=== PATIENT | male | born 1955 | race Two or more races ===

== ENCOUNTER 2020-08-14 02:41 | Emergency (ER) | payer OTHER, SELFPAY ==
--- NOTE | 2020-08-14 02:45 | ECG_ITS ---
Test Reason : CHESTPAIN Blood Pressure : / mmHG Vent. Rate : 105 BPM Atrial Rate : 105 BPM P-R Int : 202 ms QRS Dur : 116 ms QT Int : 366 ms P-R-T Axes : 043 -22 119 degrees QTc Int : 483 ms Sinus tachycardia Possible Left atrial enlargement Incomplete left bundle branch block ST & T wave abnormality, consider lateral ischemia Abnormal ECG Compare to previous EKG 14-Jun-20 No significant changes seen Referred By: Indira Martínez Electronically Signed By:ROMIE WISE MD
[2020-08-14 02:52] VITALS: BP 135/98; PULSE 96; RESP 20; TEMP 36.5; O2SAT 99
--- NOTE | 2020-08-14 02:52 | ED_ITS ---
HPI - Chest Pain General Chief Complaint: Chest Pain Stated Complaint: Chest pain Time Seen by Provider: 08/14/20 02:51 Source: patient and r d manager Mode of arrival: ambulatory Limitations: no limitations History of Present Illness HPI narrative: this is a 65-year-old man who presents after waking up and complaining shortness of breath that he states has been progressively worsening over the past 3-4 days and denies associated lower extremity edema, cough, orthopnea, fevers, chills, nausea, vomiting. Patient has also had mild substernal chest pressure for 2 days that is nonradiating and constant. Patient states he has developed significantly worsening dyspnea on exertion and fatigue. He self endorses that he has run out of his water pill and has an appointment this morning with his primary care provider who has refilled his prescription, but he was unable to fill it yesterday. Otherwise, he denies any abdominal discomfort or diarrhea. Related Data Allergies Allergy/AdvReac Type Severity Reaction Status Date / Time No Known Allergies Allergy Unverified 07/10/20 15:13 regadenoson [Lexiscan] AdvReac Unknown dizziness Verified 03/25/20 00:00 Review of Systems Review of Systems: pertinent positives and negatives as stated in HPI and 10 point review of systems is otherwise negative. PMFSH Past Medical History Source: nursing notes reviewed Medical History Hypertension Pacemaker Social History Social History Smoking Status: Heavy tobacco smoker Use of substances other than those prescribed or required for medical reasons: No Advance Directives: No Advance Directives Information Provided: No Physical Exam Vital Signs: Vital Signs: Vital Signs Temp Pulse Resp BP Pulse Ox 08/14/20 06:00 78 16 141/90 H 97 08/14/20 04:00 88 18 134/81 97 08/14/20 03:05 97.8 F 94 20 144/100 H 96 08/14/20 02:52 97.7 F 96 20 135/98 H 99 Body Mass Index 27.9 VITAL SIGNS: Reviewed. GENERAL: Well developed, well nourished, in no acute distress. HEAD: Normocephalic/atraumatic, EYES: PERRLA, EOMI intact without pain, no nystagmus/pallor/icterus noted EARS: Ext canals without abnormality, TMs non-bulging and non-erythematous NOSE: Nares patent bilateral OROPHARYNX: no oral lesions noted, posterior pharynx clear and non-erythematous without noted tonsillar enlargement/erythema/exudates NECK: Supple, no adenopathy LUNGS: Normal breath sounds. No adventitious sounds or accessory muscle use. SpO2<99> CARDIOVASCULAR: Regular rate and rhythm without noted murmurs, no JVD But trace bilateral lower extremity edema ABDOMEN: Soft, non-tender, non-distended with bowel sounds. No rigidity. No guarding. No palpable masses or hernias noted MUSCULOSKELETAL: No tenderness, deformities, or effusions noted on gross inspection. EXTREMITIES: No cyanosis, clubbing or edema. SKIN: Inspection of the skin reveals no rashes, ulcerations, jaundice, pallor, or petechiae. NEUROLOGIC: Alert and oriented x 4. Strength and sensation to light touch were grossly intact x 4. Course Course Course Narrative: This is a 65-year-old male with history and clinical presentation is suggestive of possible mild acute congestive heart failure doubt ACS or pneumonia. Patient was provided with home dose Lasix and Spironolactone. On review of all investigations there are no acute findings to suggest infection and although the BNP is elevated clinically patient is not in heart failure. In addition, chest x-ray is negative for evidence of pulmonary congestion and serial troponins are consistent with prior and not indicative of cardiac ischemia. On re-evaluation, patient reports improvement in both his breathing as well as chest discomfort after having the Lasix and Spironolactone. All results and findings were discussed with patient at bedside and he was discharged in stable condition. MDM - Chest Pain Lab Data Result diagrams: 08/14/20 03:20 08/14/20 03:20 Labs: Lab Results 08/14/20 08/14/20 08/14/20 Range/Units 03:20 03:20 03:20 WBC 8.2 (4.8-10.8) X10*3/uL RBC 4.37 L (4.60-5.80) X10*6/uL Hgb 13.3 L (14.0-18.0) g/dl Hct 39.6 L (42-52) % MCV 90.6 (80-98) fL MCH 30.4 (27.0-33.0) pg MCHC 33.6 (31.0-36.0) g/dl RDW 13.7 (11.0-16.0) % Plt Count 170 (160-400) X10*3/uL MPV 11.9 (9.4-12.4) fL Immature Gran % (Auto) 0.2 (0.0-0.4) % Neut % (Auto) 66.3 (45-73) % Lymph % (Auto) 23.2 (20-40) % [place] % (Auto) 8.1 (2-11) % Eos % (Auto) 1.7 (0-4) % Baso % (Auto) 0.5 (0-2) % Lymph # (Auto) 1.9 (1.2-4.9) X10*3/uL [place] # (Auto) 0.7 (0.1-1.2) X10*3/uL Eos # (Auto) 0.1 (0.0-0.4) X10*3/uL Baso # (Auto) 0.0 (0.0-0.2) X10*3/uL Abs Immat Gran (auto) 0.02 (0.00-0.03) X10*3/uL Absolute Neuts (auto) 5.4 (2.0-8.3) X10*3/uL Absolute Nucleated RBC 0.000 (0.0-0.012) X10*3/uL Nucleated RBC % (auto) 0.0 (0.0-0.2) /100WBC Hold Blue Top Sodium 137 (135-145) mmol/L Potassium 4.3 (3.3-5.1) mmol/l Chloride 103 (96-108) mmol/L Carbon Dioxide 22 (22-29) mmol/L Anion Gap 16 (12-20) BUN 17 H (9-16) mg/dL Creatinine 0.84 (0.5-1.4) mg/dL Estim Creat Clear Calc 87.5 Estimated GFR > 60 Random Glucose 111 (60-115) mg/dL Calcium 8.5 (8.4-10.2) mg/dL Magnesium 1.8 (1.6-2.6) mg/dL Total Bilirubin 2.5 H (0.0-1.0) mg/dL AST 23 (5-37) U/L ALT 21 (0-40) U/L Alkaline Phosphatase 71 (39-117) U/L Troponin I High Sens 15.3 (<3.5-35.0) ng/L B-Natriuretic Peptide 2675 H (<100) pg/mL Total Protein 6.8 (6.5-8.0) g/dL Albumin 4.0 (3.5-5.0) g/dL Lipase 11 (8-78) U/L Urine Color Urine Appearance Urine pH (5.0-8.0) Ur Specific [place] (1.005-1.025) Urine Protein (NEG-TRACE) MG/DL Urine Glucose (UA) (NEG) MG/DL Urine Ketones (NEG) MG/DL Urine Blood (NEG) Urine Nitrite (NEG) Ur Leukocyte Esterase (NEG) Urine RBC (0) /HPF Urine WBC (0-4) /HPF Ur Squamous Epith Cells /LPF Urine Bacteria /LPF Hyaline Casts /LPF 08/14/20 08/14/20 08/14/20 Range/Units 03:22 04:54 06:34 WBC (4.8-10.8) X10*3/uL RBC (4.60-5.80) X10*6/uL Hgb (14.0-18.0) g/dl Hct (42-52) % MCV (80-98) fL MCH (27.0-33.0) pg MCHC (31.0-36.0) g/dl RDW (11.0-16.0) % Plt Count (160-400) X10*3/uL MPV (9.4-12.4) fL Immature Gran % (Auto) (0.0-0.4) % Neut % (Auto) (45-73) % Lymph % (Auto) (20-40) % [place] % (Auto) (2-11) % Eos % (Auto) (0-4) % Baso % (Auto) (0-2) % Lymph # (Auto) (1.2-4.9) X10*3/uL [place] # (Auto) (0.1-1.2) X10*3/uL Eos # (Auto) (0.0-0.4) X10*3/uL Baso # (Auto) (0.0-0.2) X10*3/uL Abs Immat Gran (auto) (0.00-0.03) X10*3/uL Absolute Neuts (auto) (2.0-8.3) X10*3/uL Absolute Nucleated RBC (0.0-0.012) X10*3/uL Nucleated RBC % (auto) (0.0-0.2) /100WBC Hold Blue Top SEE NOTE Sodium (135-145) mmol/L Potassium (3.3-5.1) mmol/l Chloride (96-108) mmol/L Carbon Dioxide (22-29) mmol/L Anion Gap (12-20) BUN (9-16) mg/dL Creatinine (0.5-1.4) mg/dL Estim Creat Clear Calc Estimated GFR Random Glucose (60-115) mg/dL Calcium (8.4-10.2) mg/dL Magnesium (1.6-2.6) mg/dL Total Bilirubin (0.0-1.0) mg/dL AST (5-37) U/L ALT (0-40) U/L Alkaline Phosphatase (39-117) U/L Troponin I High Sens 14.3 (<3.5-35.0) ng/L B-Natriuretic Peptide (<100) pg/mL Total Protein (6.5-8.0) g/dL Albumin (3.5-5.0) g/dL Lipase (8-78) U/L Urine Color YELLOW Urine Appearance CLEAR Urine pH 6.0 (5.0-8.0) Ur Specific [place] >= 1.030 H (1.005-1.025) Urine Protein 2+ H (NEG-TRACE) MG/DL Urine Glucose (UA) NEG (NEG) MG/DL Urine Ketones 5 (NEG) MG/DL Urine Blood NEG (NEG) Urine Nitrite NEG (NEG) Ur Leukocyte Esterase NEG (NEG) Urine RBC 1-4 (0) /HPF Urine WBC 1-4 (0-4) /HPF Ur Squamous Epith Cells 1+ /LPF Urine Bacteria 1+ /LPF Hyaline Casts 5-9 /LPF ECG Data ECG #1: Attestation: I personally reviewed and interpreted this ECG as follows: Prior ECG tracings: available for review (06/14/2020) Interpretation: NSR, HR-105, no evidence of acute ischemia when compared to prior from 06/14/2020. [place]/ QRS / QTC are consistent with prior EKG from 06/12. Discharge Plan Discharge Clinical Impression: Atypical chest pain Heart failure Qualifiers: Heart failure type: unspecified Heart failure chronicity: chronic Qualified Code(s): I50.9 - Heart failure, unspecified Patient Disposition: Home, Self-Care Instructions: Heart Failure (ED), Chest Pain (ED) Additional Instructions: 1. Reanude todos los medicamentos caseros seg?n lo prescrito. 2. Recoja krystin recetas en la farmacia esta ma?aashish. 3. Cumpla con la william programada para esta ma?aashish con steele proveedor de atenci?n primaria. El paciente y / o la sunil reconocen que comprenden los resultados (seg?n corresponda), el diagn?stico, el plan de tratamiento, la necesidad de seguimiento y los s?ntomas que deber?an impulsar el regreso a la pee de emergencias. Referrals: Imelda Sepulveda MD [Primary Care Provider] - 2 days ( Further evaluation management of your heart failure.) Print Language: Thai
--- NOTE | 2020-08-14 02:53 | XR_ITS ---
EXAMINATION: CHEST 1 VIEW CLINICAL INFORMATION: Chest pain. COMPARISON: 06/14/2020. TECHNIQUE: An AP view of the chest is provided. FINDINGS: The cardiac silhouette is stable. A single lead pacer is in unchanged position. The mediastinal and hilar contours are unremarkable. There are neither pleural effusions nor pneumothoraces. There are no consolidations. The osseous structures are stable. IMPRESSION: Stable enlarged cardiac silhouette. No evidence for acute disease.
[2020-08-14 03:05] VITALS: BP 144/100; PULSE 94; RESP 20; TEMP 36.6; O2SAT 96; BMI 27.9
[2020-08-14] MEDS: Aspirin 81 MG TAB.CHEW 324 MG PO (03:14)
[2020-08-14 03:28] LABS: MANUAL DIFF FLAG NO
[2020-08-14 03:34] VITALS: PULSE 110
[2020-08-14 03:38] LABS: Basophils Percent Auto 0.5 % (0-2); Eosinophils Absolute Auto 0.1 X10*3/uL (0.0-0.4); Eosinophils Percent Auto 1.7 % (0-4); Hematocrit 39.6 % (42-52); Hemoglobin 13.3 g/dl (14.0-18.0); Imm Gran Abs Auto 0.02 X10*3/uL (0.00-0.03); Imm Gran Pct Auto 0.2 % (0.0-0.4); Lymphocytes Absolute Auto 1.9 X10*3/uL (1.2-4.9); Lymphocytes Percent Auto 23.2 % (20-40); Mean Corpuscular HGB Conc 33.6 g/dl (31.0-36.0); Mean Corpuscular Hemoglobin 30.4 pg (27.0-33.0); Mean Corpuscular Volume 90.6 fL (80-98); Mean Platelet Volume 11.9 fL (9.4-12.4); Monocytes Absolute Auto 0.7 X10*3/uL (0.1-1.2); Monocytes Percent Auto 8.1 % (2-11); Neutrophils Absolute Auto 5.4 X10*3/uL (2.0-8.3); Neutrophils Percent Auto 66.3 % (45-73); Platelet Count 170 X10*3/uL (160-400); Red Blood Count 4.37 X10*6/uL (4.60-5.80); Red Cell Distribution Width 13.7 % (11.0-16.0); White Blood Count 8.2 X10*3/uL (4.8-10.8)
[2020-08-14 03:53] LABS: Troponin-I High Sensitivity 15.3 ng/L (<3.5-35.0)
[2020-08-14 03:58] LABS: Alanine Aminotransferase 21 U/L (0-40); Alkaline Phosphatase 71 U/L (39-117); Anion Gap 16 (12-20); Aspartate Amino Transferase 23 U/L (5-37); Bilirubin Total 2.5 mg/dL (0.0-1.0); Blood Urea Nitrogen 17 mg/dL (9-16); Calcium 8.5 mg/dL (8.4-10.2); Carbon Dioxide 22 mmol/L (22-29); Chloride 103 mmol/L (96-108); Creatinine Clr Calc Pharmacy 87.5; Estimated Glomerular Filt Rate > 60; Glucose Random 111 mg/dL (60-115); Lipase 11 U/L (8-78); Potassium 4.3 mmol/l (3.3-5.1); Sodium 137 mmol/L (135-145); Total Protein 6.8 g/dL (6.5-8.0)
[2020-08-14 04:00] VITALS: BP 134/81; PULSE 88; RESP 18; O2SAT 97
[2020-08-14 04:21] LABS: B Type Natriuretic Peptide 2675 pg/mL (<100)
[2020-08-14] MEDS: Furosemide 40 MG TABLET PO (04:52)
[2020-08-14] MEDS: Spironolactone 25 MG TABLET 12.5 MG PO (04:52)
[2020-08-14 05:02] LABS: Glucose Urine UA NEG (NEG); Leukocyte Esterase Urine NEG (NEG); Nitrite Urine NEG (NEG); Specific Gravity - Urine >= 1.030 (1.005-1.025); Urine Blood NEG (NEG); Urine Ketones 5 MG/DL (NEG); Urine Protein 2+ MG/DL (NEG-TRACE)
[2020-08-14 05:04] LABS: Appearance Urine CLEAR; Color Urine YELLOW
[2020-08-14 05:15] LABS: Bacteria Urine 1+ /LPF; Squamous Epithelial Cell Urine 1+ /LPF
[2020-08-14 06:00] VITALS: BP 141/90; PULSE 78; RESP 16; O2SAT 97
[2020-08-14 06:58] LABS: Magnesium 1.8 mg/dL (1.6-2.6)
[2020-08-14 07:07] LABS: Troponin-I High Sensitivity 14.3 ng/L (<3.5-35.0)
== END 2020-08-14 07:40 | disposition home or self-care (01) ==
PROVIDERS: Emergency Provider Student in an Organized Health Care Education/Training Program; PCP Internal Medicine
DX: R07.89 Other chest pain (principal); I50.9 Heart failure, unspecified; Z79.899 Other long term (current) drug therapy; F17.200 Nicotine dependence, unspecified, uncomplicated; Z71.6 Tobacco abuse counseling; Z20.828 Contact with and (suspected) exposure to other viral communicable diseases
CPT/HCPCS: 36415; 71045; 80053; 81001; 83690; 83735; 83880; 84484; 85025; 93005; 99284

== ENCOUNTER → 2020-08-18 08:59 | Outpatient (BNVA) | payer OTHER, SELFPAY | PROVIDERS: PCP Internal Medicine; Referring Provider Internal Medicine; Visit Provider Nurse Practitioner Family | DX: I11.0 Hypertensive heart disease with heart failure (principal); I50.42 Chronic combined systolic (congestive) and diastolic (congestive) heart failure; I25.10 Atherosclerotic heart disease of native coronary artery without angina pectoris; R06.02 Shortness of breath; F17.200 Nicotine dependence, unspecified, uncomplicated; Z95.810 Presence of automatic (implantable) cardiac defibrillator; Z71.6 Tobacco abuse counseling; Z79.01 Long term (current) use of anticoagulants; Z79.899 Other long term (current) drug therapy | CPT/HCPCS: 99214 ==

== ENCOUNTER 2020-08-25 10:53 | Inpatient (IN) | payer OTHER, SELFPAY ==
[2020-08-25] VITALS (8 sets, daily range): BP systolic 90–119; BP diastolic 59–77; PULSE 76–86; RESP 16–21; TEMP 36.4–36.7; O2SAT 96–98; BMI 28.4
--- NOTE | 2020-08-25 | ECG_ITS ---
Test Reason : CP Blood Pressure : / mmHG Vent. Rate : 080 BPM Atrial Rate : 080 BPM P-R Int : 198 ms QRS Dur : 118 ms QT Int : 428 ms P-R-T Axes : 055 -16 141 degrees QTc Int : 493 ms Sinus rhythm with frequent Premature ventricular complexes in a pattern of bigeminy Incomplete left bundle branch block Left axis deviation T wave abnormality, consider lateral ischemia Abnormal ECG When compared with ECG of 14-AUG-2020 02:45, Premature ventricular complexes are now Present ST no longer depressed in Lateral leads Heart rate has decreased Referred By: Generic ED Physician Electronically Signed By:ROMIE WISE MD
--- NOTE | 2020-08-25 11:20 | ED_ITS ---
HPI - General Adult General Chief complaint: Recheck/Abnormal Lab/Rx Stated complaint: fluid retention Time Seen by Provider: 08/25/20 11:20 Source: patient Mode of arrival: ambulatory Limitations: no limitations History of Present Illness HPI narrative: shortness of breath 10lbs weight gain, sent in by law office manager for admission and diuresis. Patient has not taken meds for 1 week Onset (ago): week(s) Related Data Home Medications Medication Instructions Recorded Confirmed aspirin 81 mg tablet,delayed 81 mg PO DAILY 08/18/20 08/25/20 release ezetimibe 10 mg tablet 10 mg PO DAILY 08/18/20 08/25/20 rosuvastatin 40 mg tablet 40 mg PO DAILY 08/18/20 08/25/20 sertraline 50 mg tablet 50 mg PO DAILY 08/18/20 08/25/20 carvedilol 25 mg tablet 25 mg PO BID 08/25/20 08/25/20 Previous Rx's Medication Instructions Recorded furosemide 40 mg tablet 40 mg PO DAILY 30 Days #30 tab 08/18/20 sacubitril 24 mg-valsartan 26 mg 1 tab PO BID 30 Days #60 tab 08/20/20 tablet Allergies Allergy/AdvReac Type Severity Reaction Status Date / Time regadenoson [Lexiscan] AdvReac Unknown dizziness Verified 08/25/20 11:04 Review of Systems Constitutional: Constitutional: Reports no additional constitutional complaints Eyes: Eyes: Reports no additional eye complaints ENT: Denies dizziness Cardiovascular: Cardiovascular: Reports no additional cardiovascular complaints Respiratory: Respiratory: Reports as per HPI Gastrointestinal: Gastrointestinal: Reports no additional gastrointestinal complaints Musculoskeletal: Musculoskeletal: Reports no additional musculoskeletal complaints Integumentary/Breasts: Skin/Breast: Denies rash Neurologic: Reports system reviewed and no additional complaints, except as documented, Denies dizziness and Denies Sensory deficit (Neuro) Psychiatric: Psychiatric: Denies anxiety Hematologic/Lymphatic: Comments: leg swelling PMFSH Past Medical History Medical History CAD (coronary artery disease) Hypertension ICD (implantable cardioverter-defibrillator) in place Pacemaker Systolic and diastolic CHF, chronic Surgical History Hx of cardiac catheterization Family History Family History Father No problems noted. Mother No problems noted. Social History Social History Smoking Status: Never smoker Use of substances other than those prescribed or required for medical reasons: No Advance Directives: No Advance Directives Information Provided: No Physical Exam Vital Signs: Vital Signs: Vital Signs Temp Pulse Resp BP Pulse Ox 08/25/20 11:12 97.8 F 79 20 99/77 97 08/25/20 11:08 97.8 F 79 19 100/59 L 97 Body Mass Index 28.4 Const: General: healthy appearing Nutritional Appearance: average body habitus Orientation/consciousness: oriented to person and patient oriented x3 Limitations: no limitations HENMT: Head: Yes normal to inspection Ears: external ears normal General nose exam: Normal external nose present Mouth: Normal oral and palatal mucosa present and oropharynx normal Throat: Yes posterior oropharynx normal Eyes: General: appearance normal, both eyes and all related structures Neck: Other: supple, JVD Neck: Yes normal visual inspection Chest: Chest palpation & inspection: normal inspection of the chest Resp: Other: bilateral basilar rales Cardio: Jugular venous distension: no JVD Rate: regular rate Rhythm: regular rhythm Heart sounds: S1 normal heart sound present and S2 normal heart sound present GI: Inspection: Yes normal to inspection Palpation (GI): Soft to palpation, nontender and No hepatosplenomegaly present Auscultation: normal bowel sounds : General: Yes no CVA tenderness Back/Spine/Pelvis: Back: no CVA tenderness Skin: General skin exam: no rashes or lesions noted Neuro: General: oriented to person and patient oriented x3 Cranial nerves: Yes CN's II-XII intact bilaterally Motor exam (neuro): 5/5 motor strength present throughout Sensory Exam: No Sensory deficit (Neuro) Extrem: Other: mild edema bilaterally Psych: Appearance: grossly normal Course Course Course Narrative: patient breathing slightly better will admit for diuresis Reevaluation(s) Reevaluation #1: Discussed with Mercedes Al Hospitalist Medical Decision Making MDM Narrative Medical decision making narrative: patient with congestive heart failure will admit for diuresis Lab Data Result diagrams: 08/25/20 11:35 08/25/20 11:35 Labs: Lab Results 08/25/20 08/25/20 08/25/20 Range/Units 11:35 11:35 11:35 WBC 6.2 (4.8-10.8) X10*3/uL RBC 4.27 L (4.60-5.80) X10*6/uL Hgb 13.0 L (14.0-18.0) g/dl Hct 39.9 L (42-52) % MCV 93.4 (80-98) fL MCH 30.4 (27.0-33.0) pg MCHC 32.6 (31.0-36.0) g/dl RDW 14.5 (11.0-16.0) % Plt Count 172 (160-400) X10*3/uL MPV 11.3 (9.4-12.4) fL Immature Gran % (Auto) 0.2 (0.0-0.4) % Neut % (Auto) 65.7 (45-73) % Lymph % (Auto) 22.5 (20-40) % [place] % (Auto) 9.2 (2-11) % Eos % (Auto) 1.6 (0-4) % Baso % (Auto) 0.8 (0-2) % Lymph # (Auto) 1.4 (1.2-4.9) X10*3/uL [place] # (Auto) 0.6 (0.1-1.2) X10*3/uL Eos # (Auto) 0.1 (0.0-0.4) X10*3/uL Baso # (Auto) 0.1 (0.0-0.2) X10*3/uL Abs Immat Gran (auto) 0.01 (0.00-0.03) X10*3/uL Absolute Neuts (auto) 4.1 (2.0-8.3) X10*3/uL Absolute Nucleated RBC 0.000 (0.0-0.012) X10*3/uL Nucleated RBC % (auto) 0.0 (0.0-0.2) /100WBC Hold Blue Top Sodium 139 (135-145) mmol/L Potassium 4.7 (3.3-5.1) mmol/l Chloride 106 (96-108) mmol/L Carbon Dioxide 25 (22-29) mmol/L Anion Gap 13 (12-20) BUN 12 (9-16) mg/dL Creatinine 0.77 (0.5-1.4) mg/dL Estim Creat Clear Calc 96.2 Estimated GFR > 60 Random Glucose 120 H (60-115) mg/dL Calcium 8.1 L (8.4-10.2) mg/dL Troponin I High Sens 8.2 (<3.5-35.0) ng/L B-Natriuretic Peptide 2707 H (<100) pg/mL Coronavirus (PCR) (Negative) 08/25/20 08/25/20 Range/Units 11:38 13:09 WBC (4.8-10.8) X10*3/uL RBC (4.60-5.80) X10*6/uL Hgb (14.0-18.0) g/dl Hct (42-52) % MCV (80-98) fL MCH (27.0-33.0) pg MCHC (31.0-36.0) g/dl RDW (11.0-16.0) % Plt Count (160-400) X10*3/uL MPV (9.4-12.4) fL Immature Gran % (Auto) (0.0-0.4) % Neut % (Auto) (45-73) % Lymph % (Auto) (20-40) % [place] % (Auto) (2-11) % Eos % (Auto) (0-4) % Baso % (Auto) (0-2) % Lymph # (Auto) (1.2-4.9) X10*3/uL [place] # (Auto) (0.1-1.2) X10*3/uL Eos # (Auto) (0.0-0.4) X10*3/uL Baso # (Auto) (0.0-0.2) X10*3/uL Abs Immat Gran (auto) (0.00-0.03) X10*3/uL Absolute Neuts (auto) (2.0-8.3) X10*3/uL Absolute Nucleated RBC (0.0-0.012) X10*3/uL Nucleated RBC % (auto) (0.0-0.2) /100WBC Hold Blue Top SEE NOTE Sodium (135-145) mmol/L Potassium (3.3-5.1) mmol/l Chloride (96-108) mmol/L Carbon Dioxide (22-29) mmol/L Anion Gap (12-20) BUN (9-16) mg/dL Creatinine (0.5-1.4) mg/dL Estim Creat Clear Calc Estimated GFR Random Glucose (60-115) mg/dL Calcium (8.4-10.2) mg/dL Troponin I High Sens (<3.5-35.0) ng/L B-Natriuretic Peptide (<100) pg/mL Coronavirus (PCR) NEGATIVE (Negative) Imaging Data Chest x-ray: Radiologist's impression: cardiomegaly with vascular congestion ECG Data Attestation: I personally reviewed and interpreted this ECG as follows: Interpretation: sinus rate of 80 with PVcs, incomplete LBBB, no acute st twave changes Critical Care Time Critical Care Time Critical Care Time: Yes Total Critical Care Time: 35 Attestation: I spent 35 minutes of critical care, with interventions, assessments, speaking to patient, consultants, and family. Discharge Plan Discharge Clinical Impression: Systolic and diastolic CHF, chronic Patient Disposition: Admitted As Inpatient
--- NOTE | 2020-08-25 11:27 | XR_ITS ---
EXAMINATION: XR CHEST CLINICAL INFORMATION: CHF. COMPARISON: Chest 08/14/2020 TECHNIQUE: Frontal view of the chest was obtained. FINDINGS: There is mild cardiomegaly with increased pulmonary vascularity suggesting mild CHF. There is a solitary pacer electrodes in the right ventricle. The lungs are well-expanded and clear. No gross bony abnormality seen. XR/XR chest 1V IMPRESSION: Cardiomegaly with mild pulmonary vascular congestion.
[2020-08-25 11:43] LABS: MANUAL DIFF FLAG NO
[2020-08-25 11:45] LABS: Basophils Absolute Auto 0.1 X10*3/uL (0.0-0.2); Basophils Percent Auto 0.8 % (0-2); Eosinophils Absolute Auto 0.1 X10*3/uL (0.0-0.4); Eosinophils Percent Auto 1.6 % (0-4); Hematocrit 39.9 % (42-52); Imm Gran Abs Auto 0.01 X10*3/uL (0.00-0.03); Imm Gran Pct Auto 0.2 % (0.0-0.4); Lymphocytes Absolute Auto 1.4 X10*3/uL (1.2-4.9); Lymphocytes Percent Auto 22.5 % (20-40); Mean Corpuscular HGB Conc 32.6 g/dl (31.0-36.0); Mean Corpuscular Hemoglobin 30.4 pg (27.0-33.0); Mean Corpuscular Volume 93.4 fL (80-98); Mean Platelet Volume 11.3 fL (9.4-12.4); Monocytes Absolute Auto 0.6 X10*3/uL (0.1-1.2); Monocytes Percent Auto 9.2 % (2-11); Neutrophils Absolute Auto 4.1 X10*3/uL (2.0-8.3); Neutrophils Percent Auto 65.7 % (45-73); Platelet Count 172 X10*3/uL (160-400); Red Blood Count 4.27 X10*6/uL (4.60-5.80); Red Cell Distribution Width 14.5 % (11.0-16.0); White Blood Count 6.2 X10*3/uL (4.8-10.8)
[2020-08-25 12:08] LABS: Anion Gap 13 (12-20); Blood Urea Nitrogen 12 mg/dL (9-16); Calcium 8.1 mg/dL (8.4-10.2); Carbon Dioxide 25 mmol/L (22-29); Chloride 106 mmol/L (96-108); Creatinine Clr Calc Pharmacy 96.2; Estimated Glomerular Filt Rate > 60; Glucose Random 120 mg/dL (60-115); Potassium 4.7 mmol/l (3.3-5.1); Sodium 139 mmol/L (135-145)
[2020-08-25 12:14] LABS: B Type Natriuretic Peptide 2707 pg/mL (<100); Troponin-I High Sensitivity 8.2 ng/L (<3.5-35.0)
[2020-08-25] MEDS: Furosemide 40 MG/4 ML VIAL IVPUSH ×2 (12:20→17:27)
--- NOTE | 2020-08-25 12:38 | PC.NURSE ---
pt triaged, referred here by cardiology after elevated BNP. Pt reports not having taken his Lasix in about a wk because he doesn't like the way it makes him feel. Mild crackles heard in lower lobes bilat, reporting sob on exertion for the most part, mild dizziness. Occasional PVCs on cardiac tech, pacemaker placed several yrs ago. Bps slightly soft, spo2 wnl. 20G placed in L AC, given Lasix as per EMR. This RN at bedside to interpret for provider. Med rec completed
--- NOTE | 2020-08-25 13:07 | PM.IMHP ---
History of Present Illness Date of Service: 08/25/20 <Mercedes Al NP - Last Filed: 08/25/20 13:31> Chief Complaint: Shortness of breath <Mercedes Al NP - Last Filed: 08/25/20 13:31> he was sent home with Lasix and [id number] year old man presenting with shortness of breath over the last week. He reported increased shortness of breath especially with ambulation and lying down. He has a history of CAD and ischemic cardiomyopathy with EF of 10-15%. He presented to the ER on August 14 with progressively worsening shortness of breath. He reported that he had ran out of his water pills. He went to see his player manager today for a follow-up and was sent to the ER for further evaluation. Of note , at some point he did see his PCP and his beta-deyanira may have been changed but the patient is vague about this. He denies chest pain, nausea, vomiting, diarrhea, fever, chills, cough. He did note a 20 lb weight gain over the last few weeks, more recently about 4 lb in the last week. Chest x-ray showed cardiomegaly with mild pulmonary vascular congestion. His blood pressure was noted to be on the lower side but this improved. He was not noted to be hypoxic. BNP 2707. he was given IV Lasix with good effect. He will be admitted for further management and treatment of acute on chronic congestive heart failure. <Mercedes Al NP - Last Filed: 08/25/20 13:31> Review of Systems Review of Systems: Denies any recent fever chills or decrease in appetite respiratory See HPI cardiovascular see HPI gastrointestinal denies any dysphagia abdominal pain nausea vomiting or diarrhea genitourinary denies any dysuria frequency or hematuria musculoskeletal denies any joint pain or swelling neuropsych denies any weakness or seizures all other systems reviewed are negative <Mercedes Al NP - Last Filed: 08/25/20 13:31> ENT: Denies dizziness <Mercedse Al NP - Last Filed: 08/25/20 13:31> Neurologic: Reports system reviewed and no additional complaints, except as documented, Denies dizziness and Denies Sensory deficit (Neuro) <Mercedes Al NP - Last Filed: 08/25/20 13:31> [facility] Medical History: Medical History CAD (coronary artery disease) HLD (hyperlipidemia) Hypertension ICD (implantable cardioverter-defibrillator) in place Nonischemic cardiomyopathy Pacemaker Systolic and diastolic CHF, chronic <Mercedes Al NP - Last Filed: 08/25/20 13:31> Family History: Family History Father No problems noted. Mother No problems noted. <Mercedes Al NP - Last Filed: 08/25/20 13:31> Surgical History: Surgical History Hx of cardiac catheterization <Mercedes Al NP - Last Filed: 08/25/20 13:31> Social History: Social History Household Members: Spouse Housing: Apartment Smoking Status: Never smoker service: No Current occupational status: disabled <Mercedes Al NP - Last Filed: 08/25/20 13:31> Meds Allergies/Adverse reactions: Allergies Allergy/AdvReac Type Severity Reaction Status Date / Time regadenoson [Lexiscan] AdvReac Unknown dizziness Verified 08/25/20 11:04 <Mercedes Al NP - Last Filed: 08/25/20 13:31> Home medications: Home Medications Medication Instructions Recorded Confirmed Type aspirin 81 mg tablet,delayed 81 mg PO DAILY 08/18/20 09/16/20 History release ezetimibe 10 mg tablet 10 mg PO DAILY 08/18/20 09/16/20 History rosuvastatin 40 mg tablet 40 mg PO DAILY 08/18/20 09/16/20 History sertraline 50 mg tablet 50 mg PO DAILY 08/18/20 09/16/20 History carvedilol 25 mg tablet 25 mg PO BID 08/25/20 09/16/20 History <Mercedes Al NP - Last Filed: 08/25/20 13:31> Physical Exam Vital Signs and Narrative: Vital Signs: Last Vital Signs Temp 97.8 F 08/25/20 11:12 Pulse 79 08/25/20 11:12 Resp 20 08/25/20 11:12 BP 99/77 08/25/20 11:12 Pulse Ox 97 08/25/20 11:12 Body Mass Index 28.4 <Mercedes Al NP - Last Filed: 08/25/20 13:31> Appearing in no acute distress head is normocephalic atraumatic eyes pupils are PERRLA sclera is anicteric mouth throat mucous membranes are intact and moist neck is supple no lymphadenopathy, no JVD noted lung sounds clear heart regular paced rhythm positive bowel sounds, abdomen is soft, nontender neuro patient is alert x3, no focal deficits <Mercedes Al NP - Last Filed: 08/25/20 13:31> Neuro: Sensory Exam: No Sensory deficit (Neuro) <Mercedes Al NP - Last Filed: 08/25/20 13:31> Results Labs Labs: Laboratory Tests 08/25/20 08/25/20 08/25/20 11:35 11:35 11:35 WBC 6.2 RBC 4.27 L Hgb 13.0 L Hct 39.9 L MCV 93.4 MCH 30.4 MCHC 32.6 RDW 14.5 Plt Count 172 MPV 11.3 Immature Gran % (Auto) 0.2 Neut % (Auto) 65.7 Lymph % (Auto) 22.5 [place] % (Auto) 9.2 Eos % (Auto) 1.6 Baso % (Auto) 0.8 Lymph # (Auto) 1.4 [place] # (Auto) 0.6 Eos # (Auto) 0.1 Baso # (Auto) 0.1 Abs Immat Gran (auto) 0.01 Absolute Neuts (auto) 4.1 Absolute Nucleated RBC 0.000 Nucleated RBC % (auto) 0.0 Hold Blue Top Sodium 139 Potassium 4.7 Chloride 106 Carbon Dioxide 25 Anion Gap 13 BUN 12 Creatinine 0.77 Estim Creat Clear Calc 96.2 Estimated GFR > 60 Random Glucose 120 H Calcium 8.1 L Troponin I High Sens 8.2 B-Natriuretic Peptide 2707 H 08/25/20 11:38 WBC RBC Hgb Hct MCV MCH MCHC RDW Plt Count MPV Immature Gran % (Auto) Neut % (Auto) Lymph % (Auto) [place] % (Auto) Eos % (Auto) Baso % (Auto) Lymph # (Auto) [place] # (Auto) Eos # (Auto) Baso # (Auto) Abs Immat Gran (auto) Absolute Neuts (auto) Absolute Nucleated RBC Nucleated RBC % (auto) Hold Blue Top SEE NOTE Sodium Potassium Chloride Carbon Dioxide Anion Gap BUN Creatinine Estim Creat Clear Calc Estimated GFR Random Glucose Calcium Troponin I High Sens B-Natriuretic Peptide <Mercedes Al NP - Last Filed: 08/25/20 13:31> Assessment and Plan (1) Systolic and diastolic CHF, chronic: Status: Inactive <Mercedes Al NP - Last Filed: 08/25/20 13:31> (2) CAD (coronary artery disease): Problem details: Nonobstuctive <Mercedes Al NP - Last Filed: 08/25/20 13:31> Status: Acute <Mercedes Al NP - Last Filed: 08/25/20 13:31> 65-year-old man admitted with acute on chronic congestive heart failure. Acute on chronic congestive heart failure. 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 Hold Entresto due to hypotension, continue when blood pressure improves. Hypertension. Blood pressure on the lower side. Hold antihypertensives. History of coronary artery disease. Continue aspirin, statin and beta-deyanira. DVT prophylaxis with Lovenox. Discussed with Dr. Patel Full code <Mercedes Al NP - Last Filed: 08/25/20 13:31>
[2020-08-25 14:27] LABS: SARS COV2 PCR INHOUSE NEGATIVE (Negative)
--- NOTE | 2020-08-25 14:59 | PC.NURSE ---
[place] [facility] [facility] [place]
--- NOTE | 2020-08-25 15:23 | PC.NURSE ---
REPORT GIVEN TO MARIA ISABEL BAKER
[2020-08-25] MEDS: 0.9 % Sodium Chloride Flush 3 ML SYRINGE IVFLUSH ×2 (17:27→20:26)
[2020-08-25] MEDS: Enoxaparin Sodium 40 MG/0.4 ML SYRINGE SUBCUT (17:28)
[2020-08-25] MEDS: Flu Vacc QS2020-21(6mos up)/PF 0.5 ML SYRINGE IM (20:22)
[2020-08-25] MEDS: carvediloL 25 MG TABLET PO (20:23)
[2020-08-26] VITALS (9 sets, daily range): BP systolic 94–138; BP diastolic 47–78; PULSE 61–82; RESP 18–19; TEMP 36.3–37.4; O2SAT 94–98
[2020-08-26 06:11] LABS: MANUAL DIFF FLAG NO
[2020-08-26 06:26] LABS: Basophils Absolute Auto 0.1 X10*3/uL (0.0-0.2); Basophils Percent Auto 0.7 % (0-2); Eosinophils Absolute Auto 0.2 X10*3/uL (0.0-0.4); Eosinophils Percent Auto 2.2 % (0-4); Hematocrit 40.5 % (42-52); Hemoglobin 13.6 g/dl (14.0-18.0); Imm Gran Abs Auto 0.02 X10*3/uL (0.00-0.03); Imm Gran Pct Auto 0.3 % (0.0-0.4); Lymphocytes Absolute Auto 1.5 X10*3/uL (1.2-4.9); Lymphocytes Percent Auto 21.6 % (20-40); Mean Corpuscular HGB Conc 33.6 g/dl (31.0-36.0); Mean Corpuscular Hemoglobin 30.6 pg (27.0-33.0); Mean Corpuscular Volume 91.2 fL (80-98); Mean Platelet Volume 11.7 fL (9.4-12.4); Monocytes Absolute Auto 0.6 X10*3/uL (0.1-1.2); Monocytes Percent Auto 9.1 % (2-11); Neutrophils Absolute Auto 4.6 X10*3/uL (2.0-8.3); Neutrophils Percent Auto 66.1 % (45-73); Platelet Count 157 X10*3/uL (160-400); Red Blood Count 4.44 X10*6/uL (4.60-5.80); Red Cell Distribution Width 14.2 % (11.0-16.0); White Blood Count 6.9 X10*3/uL (4.8-10.8)
[2020-08-26 06:50] LABS: Anion Gap 15 (12-20); Blood Urea Nitrogen 12 mg/dL (9-16); Calcium 7.7 mg/dL (8.4-10.2); Carbon Dioxide 27 mmol/L (22-29); Chloride 102 mmol/L (96-108); Creatinine Clr Calc Pharmacy 104.3; Estimated Glomerular Filt Rate > 60; Glucose Random 87 mg/dL (60-115); Potassium 3.7 mmol/l (3.3-5.1); Sodium 140 mmol/L (135-145)
[2020-08-26] MEDS: 0.9 % Sodium Chloride Flush 3 ML SYRINGE IVFLUSH ×3 (09:04→21:08)
[2020-08-26] MEDS: carvediloL 25 MG TABLET PO ×2 (09:05→21:08)
[2020-08-26] MEDS: Furosemide 40 MG/4 ML VIAL IVPUSH ×2 (09:05→17:17)
[2020-08-26] MEDS: Ezetimibe 10 MG TABLET PO (09:05)
[2020-08-26] MEDS: Aspirin Enteric Coated 81 MG TABLET.DR PO (09:05)
[2020-08-26] MEDS: Sertraline HCL 50 MG TABLET PO (09:05)
--- NOTE | 2020-08-26 09:42 | P.CONCA_ITS ---
History of Present Illness History of Present Illness Date of Consult: August 26, 2020 [place] is a 65 yo male with known hx of HTN, HLD, nonischemic CMP, nonobstructive CAD, single chamber ICD who was admitted from the office yesterday with increasing sob, JVD, weight gain, decreased thoracic impedance and is being for decompensated CHF. Chief complaint: CHF Review of Systems Review of Systems: Yes all other systems are reviewed and are negative ENT: Denies dizziness Cardiovascular: Cardiovascular: Denies chest pain, Denies chest pain at rest, Denies chest pain with activity, Denies Epigastric Pain, Denies syncope, Denies claudication, Denies lightheadedness, Denies radiating jaw, neck or arm pain, Denies palpitations, Reports dyspnea on exertion and Reports orthopnea Respiratory: Respiratory: Denies chest congestion, Denies cough, Denies hemoptysis, Denies pain on inspiration and Reports dyspnea on exertion Gastrointestinal: Gastrointestinal: Reports no additional gastrointestinal complaints and Denies abdominal pain Musculoskeletal: Musculoskeletal: Reports no additional musculoskeletal complaints Neurologic: Reports system reviewed and no additional complaints, except as documented, Denies dizziness, Denies syncope and Denies Sensory deficit (Neuro) Endocrine: Endocrine: Denies palpitations PMFSH Past Medical History Medical History (Updated 08/26/20 @ 10:03 by Leticia Garrison NP-Lara) CAD (coronary artery disease) Hypertension ICD (implantable cardioverter-defibrillator) in place Nonischemic cardiomyopathy Pacemaker Systolic and diastolic CHF, chronic Family History Family History Father No problems noted. Mother No problems noted. Surgical History Surgical History Hx of cardiac catheterization 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: Yes ([employer]) Smoking Status: Never smoker Use of substances other than those prescribed or required for medical reasons: No Currently Displaying Signs/Symptoms of Drug Intoxication Withdrawal: No Have you been hit, kicked, punched, or otherwise hurt by someone within the past year? If so, by whom?: No Do you feel safe in your current relationship?: Yes Is there a partner from a previous relationship who is making you feel unsafe now?: No Are you made to feel afraid or neglected: No Advance Directives: No Advance Directives Information Provided: No Do you have thoughts of harming others: None Do you have a plan to hurt others: No Plan Recently lost weight without trying: No Meds Allergies Allergy/AdvReac Type Severity Reaction Status Date / Time regadenoson [Lexiscan] AdvReac Unknown dizziness Verified 08/25/20 11:04 Home Medications Medication Instructions Recorded Confirmed Type aspirin 81 mg tablet,delayed 81 mg PO DAILY 08/18/20 08/25/20 History release ezetimibe 10 mg tablet 10 mg PO DAILY 08/18/20 08/25/20 History rosuvastatin 40 mg tablet 40 mg PO DAILY 08/18/20 08/25/20 History sertraline 50 mg tablet 50 mg PO DAILY 08/18/20 08/25/20 History carvedilol 25 mg tablet 25 mg PO BID 08/25/20 08/25/20 History Physical Exam Vital Signs: Vital Signs: Vital Signs Temp Pulse Resp BP Pulse Ox 08/26/20 09:05 78 122/78 08/26/20 08:00 98.2 F 78 18 122/78 98 08/26/20 07:39 98.3 F 74 18 101/63 98 08/26/20 04:00 98.2 F 61 18 103/64 94 08/26/20 00:00 97.3 F 65 18 138/77 96 08/25/20 20:23 82 119/72 08/25/20 19:41 97.5 F 83 16 102/76 96 08/25/20 19:39 97.5 F 86 16 102/76 98 08/25/20 16:00 98.0 F 78 18 106/73 98 08/25/20 14:00 76 18 110/74 97 08/25/20 13:52 79 21 H 90/69 98 08/25/20 11:12 97.8 F 79 20 99/77 97 08/25/20 11:08 97.8 F 79 19 100/59 L 97 Body Mass Index 28.4 Const: General: cooperative, healthy appearing, no acute distress, alert and awake Orientation/consciousness: patient oriented x3 HENMT: Head: Yes normal to inspection Neck: Neck: Yes normal visual inspection and Yes JVD (Improved from yesterday) Carotids: carotid upstroke abnormal Resp: Effort & Inspection: normal respiratory effort, able to speak in complete sentences and not labored Auscultation: clear to auscultation bilaterally, no crackles, no rales, no rhonchi and no wheezes Cardio: Palpation: normal PMI Rate: regular rate Rhythm: regular rhythm Heart sounds: S1 normal heart sound present and S2 normal heart sound present Peripheral pulses: Peripheral pulses 2+ throughout GI: Inspection: Yes normal to inspection Skin: General skin exam: no rashes or lesions noted Neuro: General: patient oriented x3 Sensory Exam: No Sensory deficit (Neuro) Extrem: General: Yes normal to inspection and No edema Results Labs and Meds Result diagrams: 08/26/20 05:38 08/26/20 05:38 Lab results: Laboratory Results - last 24 hr 08/25/20 08/25/20 08/25/20 11:35 11:35 11:35 WBC 6.2 RBC 4.27 L Hgb 13.0 L Hct 39.9 L MCV 93.4 MCH 30.4 MCHC 32.6 RDW 14.5 Plt Count 172 MPV 11.3 Immature Gran % (Auto) 0.2 Neut % (Auto) 65.7 Lymph % (Auto) 22.5 [place] % (Auto) 9.2 Eos % (Auto) 1.6 Baso % (Auto) 0.8 Lymph # (Auto) 1.4 [place] # (Auto) 0.6 Eos # (Auto) 0.1 Baso # (Auto) 0.1 Abs Immat Gran (auto) 0.01 Absolute Neuts (auto) 4.1 Absolute Nucleated RBC 0.000 Nucleated RBC % (auto) 0.0 Hold Blue Top Sodium 139 Potassium 4.7 Chloride 106 Carbon Dioxide 25 Anion Gap 13 BUN 12 Creatinine 0.77 Estim Creat Clear Calc 96.2 Estimated GFR > 60 Random Glucose 120 H Calcium 8.1 L Troponin I High Sens 8.2 B-Natriuretic Peptide 2707 H Coronavirus (PCR) 08/25/20 08/25/20 08/26/20 11:38 13:09 05:38 WBC 6.9 RBC 4.44 L Hgb 13.6 L Hct 40.5 L MCV 91.2 MCH 30.6 MCHC 33.6 RDW 14.2 Plt Count 157 L MPV 11.7 Immature Gran % (Auto) 0.3 Neut % (Auto) 66.1 Lymph % (Auto) 21.6 [place] % (Auto) 9.1 Eos % (Auto) 2.2 Baso % (Auto) 0.7 Lymph # (Auto) 1.5 [place] # (Auto) 0.6 Eos # (Auto) 0.2 Baso # (Auto) 0.1 Abs Immat Gran (auto) 0.02 Absolute Neuts (auto) 4.6 Absolute Nucleated RBC 0.000 Nucleated RBC % (auto) 0.0 Hold Blue Top SEE NOTE Sodium Potassium Chloride Carbon Dioxide Anion Gap BUN Creatinine Estim Creat Clear Calc Estimated GFR Random Glucose Calcium Troponin I High Sens B-Natriuretic Peptide Coronavirus (PCR) NEGATIVE 08/26/20 05:38 WBC RBC Hgb Hct MCV MCH MCHC RDW Plt Count MPV Immature Gran % (Auto) Neut % (Auto) Lymph % (Auto) [place] % (Auto) Eos % (Auto) Baso % (Auto) Lymph # (Auto) [place] # (Auto) Eos # (Auto) Baso # (Auto) Abs Immat Gran (auto) Absolute Neuts (auto) Absolute Nucleated RBC Nucleated RBC % (auto) Hold Blue Top Sodium 140 Potassium 3.7 D Chloride 102 Carbon Dioxide 27 Anion Gap 15 BUN 12 Creatinine 0.71 Estim Creat Clear Calc 104.3 Estimated GFR > 60 Random Glucose 87 Calcium 7.7 L Troponin I High Sens B-Natriuretic Peptide Coronavirus (PCR) Assessment and Plan (1) Acute on chronic combined systolic and diastolic CHF (congestive heart failure): Problem details: Pt with report of increasing sob with activity over the last several weeks. His Lasix had been decreased and then increased again. He has gained 17lb over the last 6 weeks. BNP elevated over 1999 which is high for him. He has an ICD and thoracic impedance has been trending down, indicating increasing fluid overload. His last echo 01/08/20 shows EF 10-15%, grade III diastolic dysfunction. He has been admitted for IV diuresis. So far his fluid balance seems to be neg 3 liters. Weight is down 3 lb since yesterday. His breathing and JVD assessment is improving. Thoracic impedance checked this am continues to be low, indicating ongoing fluid. Status: Acute Continue to diurese with IV Lasix. Ongoing strict I+O monitoring. Close monitoring of electrolyte and kidney function. BNP in am. (2) Nonischemic cardiomyopathy: Problem details: EF 10-15%. Single chamber ICD in place. Recently started on Entresto. BP on low side on admit and it was placed on hold. Status: Acute Continue Carvedilol. Plan restart of Entresto when BP allows, post diuresis. Continue IV lasix at present. (3) CAD (coronary artery disease): Problem details: Cardiac cath 2013 shows nonobstructive CAD with 40% proximal LAD stenosis. No reports of anginal sounding chest discomfort. Status: Acute Continue Asprin, Atorvastatin, Zetia, Carvedilol. (4) ICD (implantable cardioverter-defibrillator) in place: Problem details: [facility] [place] Single chamber 12/2014. Monitored by Dr Anne's office Status: Acute Interrogation today shows impedance monitoring with downward trend over the last month. Device batter 4.9 years, Normal RV lead threshold and sensitivity, VVI mode, CHILD CARE EDUCATION COORDINATOR < 1%, alerts for SVT episodes, no therapies. Has remote monitoring in place at home. (5) Hypertension: Problem details: BP was on lower side on admit. His entresto was held. BP readings improved at present Status: Acute Plan restart of entresto prior to his discharge, if medically appropriate
--- NOTE | 2020-08-26 09:58 | P.PNIM_ITS ---
Physical Exam Vital Signs: Vital Signs: Vital Signs Temp Pulse Resp BP Pulse Ox 08/26/20 09:05 78 122/78 08/26/20 08:00 98.2 F 78 18 122/78 98 08/26/20 07:39 98.3 F 74 18 101/63 98 08/26/20 04:00 98.2 F 61 18 103/64 94 08/26/20 00:00 97.3 F 65 18 138/77 96 08/25/20 20:23 82 119/72 08/25/20 19:41 97.5 F 83 16 102/76 96 08/25/20 19:39 97.5 F 86 16 102/76 98 08/25/20 16:00 98.0 F 78 18 106/73 98 08/25/20 14:00 76 18 110/74 97 08/25/20 13:52 79 21 H 90/69 98 08/25/20 11:12 97.8 F 79 20 99/77 97 08/25/20 11:08 97.8 F 79 19 100/59 L 97 Body Mass Index 28.4 Appearing in no acute distress head is normocephalic atraumatic eyes pupils are PERRLA sclera is anicteric mouth throat mucous membranes are intact and moist neck is supple no lymphadenopathy, no JVD noted lung sounds clear heart regular paced rhythm positive bowel sounds, abdomen is soft, nontender neuro patient is alert x3, no focal deficits Objective Data Current Medications Generic Name Dose Route Start Last Admin Trade Name Freq PRN Reason Stop Dose Admin Acetaminophen 650 mg 08/25/20 15:57 Acetaminophen 325 Mg Tablet PO Q6H PRN Pain, Mild (Pain Scale 1-3) Aspirin 81 mg 08/26/20 09:00 08/26/20 09:05 Aspirin Enteric Coated 81 Mg Tablet. PO 81 mg DAILY NATALIIA Administration Atorvastatin Calcium 80 mg 08/26/20 21:00 Atorvastatin Calcium 80 Mg Tablet PO BEDTIME [facility] Carvedilol 25 mg 08/25/20 21:00 08/26/20 09:05 Carvedilol 25 Mg Tablet PO 25 mg BID NATALIIA Administration Protocol Ezetimibe 10 mg 08/26/20 09:00 08/26/20 09:05 Ezetimibe 10 Mg Tablet PO 10 mg DAILY NATALIIA Administration Enoxaparin Sodium 40 mg 08/25/20 18:00 08/25/20 17:28 Enoxaparin Sodium 40 Mg/0.4 Ml Syringe SUBCUT 40 mg Q24H NATALIIA Administration Furosemide 40 mg 08/25/20 18:00 08/26/20 09:05 Furosemide 40 Mg/4 Ml Vial IVPUSH 40 mg BID@0900,1800 NATALIIA Administration Protocol Ondansetron HCl 4 mg 08/25/20 15:57 Ondansetron Hcl 4 Mg/2 Ml Vial IVPUSH Q8H PRN Nausea and Vomiting Pharmacy Consult 1 each 08/25/20 12:28 Consult Rx Perform Med Rec MISCELLANE ONCE PRN Consult order Sertraline HCl 50 mg 08/26/20 09:00 08/26/20 09:05 Sertraline Hcl 50 Mg Tablet PO 50 mg DAILY NATALIIA Administration Sodium Chloride 3 ml 08/25/20 16:00 08/26/20 09:04 0.9 % Sodium Chloride Flush 3 Ml Syringe IVFLUSH 3 ml QSHIFT NATALIIA Administration Labs CBC & Chem 7: 08/26/20 05:38 08/26/20 05:38 Assessment and Plan (1) Systolic and diastolic CHF, chronic: Status: Acute (2) CAD (coronary artery disease): Problem details: Cardiac cath 2013 shows nonobstructive CAD with 40% proximal LAD stenosis. No reports of anginal sounding chest discomfort. Status: Acute Assessment and Plan: 65-year-old man admitted with acute on chronic congestive heart failure. Acute on chronic systolic congestive heart failure. Clinically better. IV Lasix, Cardiology to follow, bus monitor, Intake and output, daily weights. Resume Entresto Hypertension. Blood pressure on the lower side. Hold antihypertensives. History of coronary artery disease. Continue aspirin, statin and beta-deyanira. DVT prophylaxis with Lovenox.
--- NOTE | 2020-08-26 13:20 | MHC.CM.PN ---
IMM 08/26/20 MALE 65 DX HF EXACERBATION. He lives alone. He uses a cane for ambulation. [employer] in place. DP home resume [employer] services.
[2020-08-26] MEDS: Enoxaparin Sodium 40 MG/0.4 ML SYRINGE SUBCUT (17:17)
[2020-08-26] MEDS: Sacubitril/Valsartan 24/26 1 TAB TABLET PO (21:08)
[2020-08-26] MEDS: Atorvastatin Calcium 80 MG TABLET PO (21:08)
[2020-08-27 03:45] VITALS: BP 108/68; PULSE 73; RESP 16; TEMP 36.3; O2SAT 97
[2020-08-27 07:26] VITALS: BP 101/61; PULSE 76; RESP 18; TEMP 36.5; O2SAT 97
[2020-08-27 07:44] LABS: B Type Natriuretic Peptide 2051 pg/mL (<100)
[2020-08-27] MEDS: Sertraline HCL 50 MG TABLET PO (09:33)
[2020-08-27] MEDS: Furosemide 40 MG/4 ML VIAL IVPUSH (09:33)
[2020-08-27] MEDS: Aspirin Enteric Coated 81 MG TABLET.DR PO (09:33)
[2020-08-27] MEDS: Ezetimibe 10 MG TABLET PO (09:33)
[2020-08-27] MEDS: carvediloL 25 MG TABLET PO (09:33)
[2020-08-27] MEDS: 0.9 % Sodium Chloride Flush 3 ML SYRINGE IVFLUSH (09:34)
--- NOTE | 2020-08-27 09:35 | P.PNIM_ITS ---
Subjective Subjective Date of Service: 08/27/20 Interval History: Seen in f/u for heart failure exaercebation, overall is doing better. Review of Systems Gen: no fever Resp: no sob, no cough CV: no chest, + MOSQU[place]A, no leg edema GI: No n/v, no abd pain Neuro: No confusion Physical Exam Vital Signs: Vital Signs: Vital Signs Temp Pulse Resp BP Pulse Ox 08/27/20 07:26 97.7 F 76 18 101/61 97 08/27/20 03:45 97.4 F 73 16 108/68 97 08/26/20 23:57 98.3 F 80 18 99/60 97 08/26/20 19:22 99.3 F 82 19 102/47 L 96 08/26/20 15:04 98.0 F 78 19 94/52 L 98 08/26/20 11:15 97.9 F 75 18 94/66 96 Body Mass Index 28.4 Appearing in no acute distress head is normocephalic atraumatic eyes pupils are PERRLA sclera is anicteric mouth throat mucous membranes are intact and moist neck is supple no lymphadenopathy, no JVD noted lung sounds clear heart regular paced rhythm positive bowel sounds, abdomen is soft, nontender neuro patient is alert x3, no focal deficits Objective Data Current Medications Generic Name Dose Route Start Last Admin Trade Name Samsonq PRN Reason Stop Dose Admin Acetaminophen 650 mg 08/25/20 15:57 Acetaminophen 325 Mg Tablet PO Q6H PRN Pain, Mild (Pain Scale 1-3) Aspirin 81 mg 08/26/20 09:00 08/26/20 09:05 Aspirin Enteric Coated 81 Mg Tablet. PO 81 mg DAILY NATALIIA Administration Atorvastatin Calcium 80 mg 08/26/20 21:00 08/26/20 21:08 Atorvastatin Calcium 80 Mg Tablet PO 80 mg BEDTIME NATALIIA Administration Carvedilol 25 mg 08/25/20 21:00 08/26/20 21:08 Carvedilol 25 Mg Tablet PO 25 mg BID NATALIIA Administration Protocol Ezetimibe 10 mg 08/26/20 09:00 08/26/20 09:05 Ezetimibe 10 Mg Tablet PO 10 mg DAILY NATALIIA Administration Enoxaparin Sodium 40 mg 08/25/20 18:00 08/26/20 17:17 Enoxaparin Sodium 40 Mg/0.4 Ml Syringe SUBCUT 40 mg Q24H NATALIIA Administration Furosemide 40 mg 08/25/20 18:00 08/26/20 17:17 Furosemide 40 Mg/4 Ml Vial IVPUSH 40 mg BID@0900,1800 NATALIIA Administration Protocol Ondansetron HCl 4 mg 08/25/20 15:57 Ondansetron Hcl 4 Mg/2 Ml Vial IVPUSH Q8H PRN Nausea and Vomiting Pharmacy Consult 1 each 08/25/20 12:28 Consult Rx Perform Med Rec MISCELLANE ONCE PRN Consult order Sacubitril/Valsartan 1 tab 08/26/20 10:05 08/26/20 21:08 Sacubitril/Valsartan 1 Tab Tablet PO 1 tab BID NATALIIA Administration Protocol Sertraline HCl 50 mg 08/26/20 09:00 08/26/20 09:05 Sertraline Hcl 50 Mg Tablet PO 50 mg DAILY NATALIIA Administration Sodium Chloride 3 ml 08/25/20 16:00 08/26/20 21:08 0.9 % Sodium Chloride Flush 3 Ml Syringe IVFLUSH 3 ml QSHIFT NATALIIA Administration Labs CBC & Chem 7: 08/26/20 05:38 08/26/20 05:38 Assessment and Plan (1) Systolic and diastolic CHF, chronic: Status: Acute (2) CAD (coronary artery disease): Problem details: Cardiac cath 2013 shows nonobstructive CAD with 40% proximal LAD stenosis. No reports of anginal sounding chest discomfort. Status: Acute Assessment and Plan: 65-year-old man admitted with acute on chronic congestive heart failure. Acute on chronic systolic congestive heart failure. Clinically improving but not at baseline yet continue IV Lasix, Cardiology following, analysis evaluator, Intake and output, daily weights. Entresto if BP is ok. Monitor I/O Hypertension. Blood pressure on the lower side. Hold antihypertensives. History of coronary artery disease. Continue aspirin, statin and beta-deyanira. s/p AICd for cardiomyopathy, runs of vtach--check mag HLD--statin DVT prophylaxis with Lovenox.
--- NOTE | 2020-08-27 09:56 | P.PNCAR_ITS ---
Subjective Subjective Interval history: Seen in f/u for heart failure exacerbation. Feeling much better. Walking halls without symptom of sob. Review of Systems Comments: Awake, alert, feels good. Denies dizziness Cardiovascular: Denies chest pain at rest, Denies chest pain with activity, Denies syncope, Denies palpitations and Denies dyspnea on exertion Respiratory: Denies chest congestion, Denies cough, Denies hemoptysis, Denies pain on inspiration and Denies dyspnea on exertion Comments: sleeping with HOB slightly elevated Gastrointestinal: Reports no additional gastrointestinal complaints and Denies abdominal pain Musculoskeletal: Reports no additional musculoskeletal complaints Reports system reviewed and no additional complaints, except as documented, Denies confusion, Denies dizziness, Denies syncope and Denies Sensory deficit (Neuro) Psychiatric: Denies anxiety, Denies confusion and Denies depression Endocrine: Denies palpitations Physical Exam Vital Signs: Vital Signs Temp Pulse Resp BP Pulse Ox 08/27/20 07:26 97.7 F 76 18 101/61 97 08/27/20 03:45 97.4 F 73 16 108/68 97 08/26/20 23:57 98.3 F 80 18 99/60 97 08/26/20 19:22 99.3 F 82 19 102/47 L 96 08/26/20 15:04 98.0 F 78 19 94/52 L 98 08/26/20 11:15 97.9 F 75 18 94/66 96 Body Mass Index 28.4 Const General: No confusion Orientation/consciousness: No confusion HENMT Head: Yes normal to inspection Neck Neck: Yes normal visual inspection and Yes no JVD Carotids: carotid upstroke abnormal Resp Effort & Inspection: normal respiratory effort, able to speak in complete sentences and not labored Auscultation: clear to auscultation bilaterally, no crackles, no rales, no rhonchi and no wheezes Cardio Palpation: normal PMI Rate: regular rate Rhythm: regular rhythm Heart sounds: S1 normal heart sound present and S2 normal heart sound present Peripheral pulses: Peripheral pulses 2+ throughout GI Inspection: Yes normal to inspection Skin General skin exam: no rashes or lesions noted Neuro General: No confusion Sensory Exam: No Sensory deficit (Neuro) Extrem General: Yes normal to inspection and No edema Results Labs and Meds Result diagrams: 08/26/20 05:38 08/26/20 05:38 Lab results: Laboratory Results - last 24 hr 08/27/20 05:50 B-Natriuretic Peptide 2050 H Progress Note: A&P Assessment and plan (1) Acute on chronic combined systolic and diastolic CHF (congestive heart failure): Problem details: Pt with report of increasing sob with activity over the last several weeks. His Lasix had been decreased and then increased again. He has gained 17lb over the l ast 6 weeks. BNP elevated over 1999 which is high for him. He has an ICD and thoracic impedance has been trending down, indicating increasing fluid overload. His last echo 01/08/20 shows EF 10-15%, grade III diastolic dysfunction. He has been admitted for IV diuresis. So far his fluid balance seems to be neg 3 liters. Weight is down 3 lb since yesterday. His breathing and JVD assessment is improving. Thoracic impedance checked this am continues to be low, indicating ongoing fluid. Status: Acute Assessment and Plan: Today on exam he seems euvolemic. A recheck of his thoracic impedance this am shows that it is back up near his baseline. Diuresed about 4500cc. He is ambulating in the vo and feels good. He can be discharged today from a cardiology perspective. Will send home on Lasix 40mg bid. His dose had been 40mg once daily. Spent time going over low salt diet, strict med compliance. We will arrange for office follow up in 1-2 week for reeval. (2) Nonischemic cardiomyopathy: Problem details: EF 10-15%. Single chamber ICD in place. Recently started on Entresto. BP on low side on admit and it was placed on hold. Status: Acute Assessment and Plan: Entresto on hold this admit. BPs still running on low side with his diuresis. Can continue his Carvedilol. Would keep Entresto on hold and it can be restarted as an outpt. (3) Shortness of breath: Status: Acute (4) CAD (coronary artery disease): Problem details: Cardiac cath 2013 shows nonobstructive CAD with 40% proximal LAD stenosis. No reports of anginal sounding chest discomfort. Status: Acute Assessment and Plan: Stable without angina. (5) ICD (implantable cardioverter-defibrillator) in place: Problem details: [facility] Single chamber 12/2014. Monitored by Dr Anne's office Status: Acute Assessment and Plan: Thoracic impedance today much improved (6) Hypertension: Problem details: BP was on lower side on admit. His entresto was held. BP readings improved at present Status: Acute Assessment and Plan: Remain on low side today. Can be discharged - continue to hold Entresto. Fall Risk Details Current Medications: Current Medications Generic Name Dose Route Start Last Admin Trade Name Samsonq PRN Reason Stop Dose Admin Acetaminophen 650 mg 08/25/20 15:57 Acetaminophen 325 Mg Tablet PO Q6H PRN Pain, Mild (Pain Scale 1-3) Aspirin 81 mg 08/26/20 09:00 08/27/20 09:33 Aspirin Enteric Coated 81 Mg Tablet. PO 81 mg DAILY NATALIIA Administration Atorvastatin Calcium 80 mg 08/26/20 21:00 08/26/20 21:08 Atorvastatin Calcium 80 Mg Tablet PO 80 mg BEDTIME NATALIIA Administration Carvedilol 25 mg 08/25/20 21:00 08/27/20 09:33 Carvedilol 25 Mg Tablet PO 25 mg BID NATALIIA Administration Protocol Ezetimibe 10 mg 08/26/20 09:00 08/27/20 09:33 Ezetimibe 10 Mg Tablet PO 10 mg DAILY NATALIIA Administration Enoxaparin Sodium 40 mg 08/25/20 18:00 08/26/20 17:17 Enoxaparin Sodium 40 Mg/0.4 Ml Syringe SUBCUT 40 mg Q24H NATALIIA Administration Furosemide 40 mg 08/25/20 18:00 08/27/20 09:33 Furosemide 40 Mg/4 Ml Vial IVPUSH 40 mg BID@0900,1800 NATALIIA Administration Protocol Ondansetron HCl 4 mg 08/25/20 15:57 Ondansetron Hcl 4 Mg/2 Ml Vial IVPUSH Q8H PRN Nausea and Vomiting Pharmacy Consult 1 each 08/25/20 12:28 Consult Rx Perform Med Rec MISCELLANE ONCE PRN Consult order Sacubitril/Valsartan 1 tab 08/26/20 10:05 08/27/20 09:36 Sacubitril/Valsartan 1 Tab Tablet PO Not Given BID NATALIIA Protocol Sertraline HCl 50 mg 08/26/20 09:00 08/27/20 09:33 Sertraline Hcl 50 Mg Tablet PO 50 mg DAILY NATALIIA Administration Sodium Chloride 3 ml 08/25/20 16:00 08/27/20 09:34 0.9 % Sodium Chloride Flush 3 Ml Syringe IVFLUSH 3 ml QSHIFT NATALIIA Administration Time Spent With Patient Time: 15 min Total time spent is greater than 50% in coordination of care (as documented) at patient's floor/unit and/or counseling patient: Time with patient: 15 - 24 minutes
--- NOTE | 2020-08-27 10:59 | MHC.CLN ---
Goal for dc is to return home with resumption of [facility] services. CM will continue to follow for dc planning and possible need to adjust the dc plan.
[2020-08-27 11:11] VITALS: BP 99/65; PULSE 76; RESP 18; TEMP 36.8; O2SAT 96
[2020-08-27 11:29] LABS: Anion Gap 11 (12-20); Blood Urea Nitrogen 10 mg/dL (9-16); Calcium 8.4 mg/dL (8.4-10.2); Carbon Dioxide 30 mmol/L (22-29); Chloride 100 mmol/L (96-108); Creatinine Clr Calc Pharmacy 97.5; Estimated Glomerular Filt Rate > 60; Glucose Random 143 mg/dL (60-115); Sodium 137 mmol/L (135-145)
--- NOTE | 2020-08-27 11:48 | P.DS_ITS ---
DS: Providers Provider Date of admission: 08/25/20 13:36 Primary care physician: Imelda Sepulveda MD Consults: 08/25/20 15:57 Consult to Cardiology Routine Consulting Provider: Zuhair Hernandes Reason for consultation: HFREF ACUTE ON CHRONIC Has provider been notified: No DS: Diagnosis Discharge Diagnosis (1) Acute on chronic combined systolic and diastolic CHF (congestive heart failure): Status: Acute (2) Nonischemic cardiomyopathy: Status: Acute (3) Shortness of breath: Status: Acute (4) CAD (coronary artery disease): Status: Acute (5) ICD (implantable cardioverter-defibrillator) in place: Status: Acute (6) Hypertension: Status: Acute DS: Summary Hospital Course Hospital Course: Chief Complaint: Shortness of breath HPI from admission: 65 year old man presenting with shortness of breath over the last week. He reported increased shortness of breath especially with ambulation and lying down. He has a history of CAD and ischemic cardiomyopathy with EF of 10-15%. He presented to the ER on August 14 with progressively worsening shortness of breath. He reported that he had ran out of his water pills. He went to see his clinical care manager today for a follow-up and was sent to the ER for further evaluation. Of note , at some point he did see his PCP and his beta-deyanira may have been changed but the patient is vague about this. He denies chest pain, nausea, vomiting, diarrhea, fever, chills, cough. He did note a 20 lb weight gain over the last few weeks, more recently about 4 lb in the last week. Chest x-ray showed cardiomegaly with mild pulmonary vascular congestion. His blood pressure was noted to be on the lower side but this improved. He was not noted to be hypoxic. BNP 2707. he was given IV Lasix with good effect. He will be admitted for further management and treatment of acute on chronic congestive heart failure. Hospital course: Patient was admitted and treated for heart failure with IV Lasix with improvement in symptoms and weight. Because blood pressure has been low cardiology is recommending stopping Entresto and will be restarted in the office once BP is better. His BNP has improved and His breathing, JVD assessment is improving. Thoracic impedance has gone up , indicating reduced fluid overload. To avoid salty food,watch weight and follow up with cardiology. . Time Spent with Patient Time attestation: Total time spent providing and/or coordinating discharge services: Time spent: Greater than 30 minutes Physical Exam Vital Signs: Vital Signs: Vital Signs Temp Pulse Resp BP Pulse Ox 08/27/20 11:11 98.3 F 76 18 99/65 96 08/27/20 07:26 97.7 F 76 18 101/61 97 08/27/20 03:45 97.4 F 73 16 108/68 97 08/26/20 23:57 98.3 F 80 18 99/60 97 08/26/20 19:22 99.3 F 82 19 102/47 L 96 08/26/20 15:04 98.0 F 78 19 94/52 L 98 Body Mass Index 28.4 Appearing in no acute distress head is normocephalic atraumatic eyes pupils are PERRLA sclera is anicteric mouth throat mucous membranes are intact and moist neck is supple no lymphadenopathy, no JVD noted lung sounds clear heart regular paced rhythm positive bowel sounds, abdomen is soft, nontender neuro patient is alert x3, no focal deficits DS: Data Data Completed and Pending Labs on day of discharge: Labs from last 24 hours 08/27/20 08/27/20 10:39 05:50 Sodium 137 Potassium 4.0 Chloride 100 Carbon Dioxide 30 H Anion Gap 11 L BUN 10 Creatinine 0.76 Estim Creat Clear Calc 97.5 Estimated GFR > 60 Random Glucose 143 H D Calcium 8.4 B-Natriuretic Peptide 2051 H Discharge Plan Discharge Anticipated Discharge Date/Time: 08/27/20 11:43 Patient Disposition: Home, Self-Care Referrals: Imelda Sepulveda MD [Primary Care Provider] - Discharge Medications: Continued carvedilol 25 mg tablet 25 mg PO BID RF: 0 rosuvastatin 40 mg tablet 40 mg PO DAILY RF: 0 sertraline 50 mg tablet 50 mg PO DAILY RF: 0 ezetimibe 10 mg tablet 10 mg PO DAILY RF: 0 aspirin [Adult Low Dose Aspirin] 81 mg tablet,delayed release (DR/EC) 81 mg PO DAILY RF: 0 Changed furosemide 40 mg tablet 40 mg PO BID 30 Days Qty: 60 RF: 5 Discontinued Entresto 24-26 mg tablet 1 tab PO BID 30 Days Qty: 60 RF: 5 Discharge Orders: Discharge Order (Routine); Ordered 08/27/20 Ordered By: Connor Patel Diet: advance to your usual diet and low salt diet Activity on Discharge: As tolerated Visit Report Forms: Patient Portal Discharge page Care Plan Goals: Optimal management of heart failure Health Concerns: progression of hert failure Plan of Treatment: Take Lasix 40 mg twice daily, previously once daily. Stop Taking Entresto (Sacubutrel) and follow up with cardiology office. Avod salty food. Monitor your weight daily and if you gain 2 Ib in a day inform your primary care doctor. Follow up with your primary care Doctor in a week, call for apointment
--- NOTE | 2020-08-27 12:05 | MHC.CM.PN ---
Patient has been medically cleared for dc to home today, no services. Last IMM addressed yesterday.
== END 2020-08-27 13:45 | disposition home or self-care (01) | DRG 293 ==
LOC: HO.ED 12:35 → HO.IMC 14:14
PROVIDERS: Nurse Practitioner Acute Care; Nurse Practitioner Family; Admitting Provider Internal Medicine; Emergency Provider Emergency Medicine; PCP Internal Medicine; Visit Provider Internal Medicine
DX: I11.0 Hypertensive heart disease with heart failure (principal); I25.10 Atherosclerotic heart disease of native coronary artery without angina pectoris; I42.8 Other cardiomyopathies; I50.43 Acute on chronic combined systolic (congestive) and diastolic (congestive) heart failure; Z23 Encounter for immunization; Z20.828 Contact with and (suspected) exposure to other viral communicable diseases; Z95.810 Presence of automatic (implantable) cardiac defibrillator; Z79.82 Long term (current) use of aspirin; Z79.899 Other long term (current) drug therapy
CPT/HCPCS: 36415; 71045; 80048; 83880; 84484; 85025; 90686; 93005; 96374; 99212; 99225; 99284; 99291; J1650; J1940; U0003

== ENCOUNTER 2020-09-04 11:03 | Outpatient (REF) | payer OTHER, SELFPAY | END 2020-09-04 11:04 | disposition home or self-care (01) | LOC: HO.LAB 11:03 | PROVIDERS: PCP Internal Medicine; Visit Provider Nurse Practitioner Family | DX: I11.0 Hypertensive heart disease with heart failure (principal); I50.43 Acute on chronic combined systolic (congestive) and diastolic (congestive) heart failure; R06.02 Shortness of breath; I25.10 Atherosclerotic heart disease of native coronary artery without angina pectoris; E78.5 Hyperlipidemia, unspecified; I42.8 Other cardiomyopathies; Z98.890 Other specified postprocedural states; Z95.810 Presence of automatic (implantable) cardiac defibrillator | CPT/HCPCS: 99212 ==

== ENCOUNTER → 2020-09-16 09:38 | Outpatient (BNVA) | payer OTHER, SELFPAY | PROVIDERS: PCP Internal Medicine; Referring Provider Internal Medicine; Visit Provider Nurse Practitioner Family | DX: Z76.89 Persons encountering health services in other specified circumstances (principal) ==

== ENCOUNTER 2020-09-16 11:39 | Outpatient (REF) | payer OTHER, SELFPAY ==
--- NOTE | 2020-09-16 12:02 | US_ITS ---
EXAMINATION: LEFT UPPER EXCRETION THE ULTRASOUND VENOUS DUPLEX CLINICAL INFORMATION: Pain and swelling left upper extremity. COMPARISON: None TECHNIQUE: Routine grayscale, color and Doppler imaging of left upper extremity was performed. FINDINGS: There is normal respiratory augmentation and color flow seen in the left internal jugular, left subclavian, left axillary veins. Normal color flow and Doppler signal visualized in the left brachial, basilic, cephalic, radial and ulnar veins. There is mild soft tissue swelling in the left forearm and arm region. US/US venous duplex UE LT IMPRESSION: No evidence of DVT left upper extremity. Mild soft tissue swelling left arm and forearm.
[2020-09-16 12:57] LABS: Anion Gap 13 (12-20); Blood Urea Nitrogen 10 mg/dL (9-16); Calcium 8.6 mg/dL (8.4-10.2); Carbon Dioxide 27 mmol/L (22-29); Chloride 104 mmol/L (96-108); Estimated Glomerular Filt Rate > 60; Glucose Random 114 mg/dL (60-115); Sodium 140 mmol/L (135-145)
[2020-09-16 13:06] LABS: B Type Natriuretic Peptide 3026 pg/mL (<100)
== END 2020-09-16 11:40 | disposition home or self-care (01) ==
LOC: HO.LAB 11:39
PROVIDERS: Nurse Practitioner Family; PCP Internal Medicine Cardiovascular Disease; Visit Provider Internal Medicine Cardiovascular Disease
DX: I42.8 Other cardiomyopathies (principal); I50.43 Acute on chronic combined systolic (congestive) and diastolic (congestive) heart failure; M79.89 Other specified soft tissue disorders
CPT/HCPCS: 80048; 83880; 93971; 99212

== ENCOUNTER → 2020-09-23 10:27 | Outpatient (BNVA) | payer OTHER, SELFPAY | PROVIDERS: PCP Internal Medicine; Visit Provider Nurse Practitioner Family | DX: M79.89 Other specified soft tissue disorders (principal); I11.0 Hypertensive heart disease with heart failure; E78.5 Hyperlipidemia, unspecified; I50.42 Chronic combined systolic (congestive) and diastolic (congestive) heart failure; I50.43 Acute on chronic combined systolic (congestive) and diastolic (congestive) heart failure; R06.02 Shortness of breath; I25.10 Atherosclerotic heart disease of native coronary artery without angina pectoris; I42.8 Other cardiomyopathies; Z98.890 Other specified postprocedural states; Z95.810 Presence of automatic (implantable) cardiac defibrillator | CPT/HCPCS: 99212 ==

== ENCOUNTER → 2020-09-30 10:07 | Outpatient (BNVA) | payer OTHER, SELFPAY | PROVIDERS: PCP Internal Medicine; Referring Provider Internal Medicine; Visit Provider Nurse Practitioner Family | DX: Z45.02 Encounter for adjustment and management of automatic implantable cardiac defibrillator (principal); I11.0 Hypertensive heart disease with heart failure; I50.42 Chronic combined systolic (congestive) and diastolic (congestive) heart failure; I25.10 Atherosclerotic heart disease of native coronary artery without angina pectoris; I42.8 Other cardiomyopathies; E78.5 Hyperlipidemia, unspecified; M79.89 Other specified soft tissue disorders; R06.02 Shortness of breath | CPT/HCPCS: 99212 ==

== ENCOUNTER → 2020-10-28 11:02 | Outpatient (BNVA) | payer OTHER, SELFPAY | PROVIDERS: PCP Internal Medicine; Visit Provider Internal Medicine Cardiovascular Disease | DX: I50.20 Unspecified systolic (congestive) heart failure (principal); I11.0 Hypertensive heart disease with heart failure; I42.8 Other cardiomyopathies | CPT/HCPCS: 99212 ==

== ENCOUNTER 2020-12-23 09:07 | Outpatient (REF) | payer OTHER, SELFPAY | END 2020-12-23 09:08 | disposition home or self-care (01) | LOC: HO.LAB 09:07 | PROVIDERS: Visit Provider Internal Medicine | DX: Z20.822 Contact with and (suspected) exposure to COVID-19 (principal) | CPT/HCPCS: 36415; C9803; U0003; U0005 ==

== ENCOUNTER → 2021-01-19 14:31 | Outpatient (BNVA) | payer OTHER, SELFPAY | PROVIDERS: PCP Internal Medicine; Visit Provider Internal Medicine Cardiovascular Disease | DX: I42.8 Other cardiomyopathies (principal); I50.20 Unspecified systolic (congestive) heart failure | CPT/HCPCS: 99212 ==

== ENCOUNTER 2021-03-12 05:22 | Emergency (ER) | payer OTHER, SELFPAY ==
--- NOTE | ~2021-03-12 | XR_ITS ---
EXAMINATION: XR CHEST CLINICAL INFORMATION: Chest pain COMPARISON: 08/25/2020 TECHNIQUE: 2 views of the chest were obtained. FINDINGS: Left-sided AICD lead tip overlies the right ventricle. Lung volumes are symmetric. No focal consolidation is seen. No evidence of pneumothorax. Trace right pleural effusion is noted. Mild Pepe B-lines noted towards the lung bases, consistent with mild interstitial edema. Cardiac silhouette is enlarged. Calcification is present at the aortic arch. No acute osseous findings are seen. XR/XR chest 2V IMPRESSION: Mild interstitial edema. Trace right pleural effusion. Enlarged cardiac silhouette.
--- NOTE | 2021-03-12 05:47 | ECG_ITS ---
Test Reason : CHEST PAIN/SOB Blood Pressure : / mmHG Vent. Rate : 116 BPM Atrial Rate : 116 BPM P-R Int : 178 ms QRS Dur : 120 ms QT Int : 344 ms P-R-T Axes : 008 -06 118 degrees QTc Int : 478 ms Sinus tachycardia with occasional Premature ventricular complexes and Fusion complexes Possible Left atrial enlargement Incomplete left bundle branch block ST & T wave abnormality, consider lateral ischemia Abnormal ECG When compared with ECG of 25-AUG-2020 11:21, Fusion complexes are now Present ST now depressed in Lateral leads Referred By: Generic ED Physician Electronically Signed By:DANYELL ROMAN MD
[2021-03-12 06:14] LABS: Basophils Absolute Auto 0.1 X10*3/uL (0.0-0.2); Basophils Percent Auto 0.6 % (0-2); Eosinophils Absolute Auto 0.1 X10*3/uL (0.0-0.4); Eosinophils Percent Auto 0.7 % (0-4); Hematocrit 39.6 % (42-52); Hemoglobin 13.6 g/dl (14.0-18.0); Imm Gran Abs Auto 0.03 X10*3/uL (0.00-0.03); Imm Gran Pct Auto 0.3 % (0.0-0.4); Lymphocytes Absolute Auto 1.4 X10*3/uL (1.2-4.9); Lymphocytes Percent Auto 16.6 % (20-40); MANUAL DIFF FLAG NO; Mean Corpuscular HGB Conc 34.3 g/dl (31.0-36.0); Mean Corpuscular Hemoglobin 31.6 pg (27.0-33.0); Mean Corpuscular Volume 92.1 fL (80-98); Monocytes Absolute Auto 0.5 X10*3/uL (0.1-1.2); Neutrophils Absolute Auto 6.6 X10*3/uL (2.0-8.3); Neutrophils Percent Auto 75.8 % (45-73); Platelet Count 169 X10*3/uL (160-400); Red Cell Distribution Width 13.2 % (11.0-16.0); White Blood Count 8.7 X10*3/uL (4.8-10.8)
[2021-03-12 06:38] LABS: Anion Gap 14 (12-20); Blood Urea Nitrogen 15 mg/dL (9-16); Calcium 9.1 mg/dL (8.4-10.2); Carbon Dioxide 25 mmol/L (22-29); Chloride 104 mmol/L (96-108); Estimated Glomerular Filt Rate > 60; Glucose Random 121 mg/dL (60-115); Potassium 3.9 mmol/L (3.3-5.1); Sodium 139 mmol/L (135-145)
[2021-03-12 06:43] LABS: Troponin-I High Sensitivity 17.9 ng/L (<3.5-35.0)
[2021-03-12 07:52] VITALS: BP 151/95; PULSE 111; RESP 20; TEMP 36.8; O2SAT 96; BMI 28.5
[2021-03-12 08:38] VITALS: BP 129/92; PULSE 109; RESP 26; O2SAT 96
[2021-03-12 09:24] LABS: Troponin-I High Sensitivity 20.4 ng/L (<3.5-35.0)
--- NOTE | 2021-03-12 10:12 | ED_ITS ---
HPI - SOB/Dyspnea General Chief Complaint: Dyspnea Stated Complaint: chest pain, SOB Time Seen by Provider: 03/12/21 07:21 Source: patient Mode of arrival: ambulatory Limitations: language barrier (Irish speaking only, assembler erector used) History of Present Illness HPI Narrative: 66-year-old male who presents emergency department for evaluation of shortness of breath and chest pain. Patient states that he has noted increased shortness of breath over the past 2 days, the shortness of breath seems to be worse at night and worse if he lies down flat. He also has noted intermittent chest pain. He points to his anterior chest when asked to localize the pain. Describes the pain as a pressure-like pain which is worse with breathing. States chest pain is 3/10 at its worst. He states he has had occasional cough. He denied fever or chills. He denied nausea or vomiting. He states he has had a 20 lb weight gain over the past 2 months. He has not noticed any increased swelling of his lower extremities. Patient does have a history of congestive heart failure and he states that he takes Lasix 80 mg once a day. He has been compliant with this medication. Related Data Home Medications Medication Instructions Recorded Confirmed aspirin 81 mg tablet,delayed 81 mg PO DAILY 08/18/20 01/19/21 release ezetimibe 10 mg tablet 10 mg PO DAILY 08/18/20 01/19/21 rosuvastatin 40 mg tablet 40 mg PO DAILY 08/18/20 01/19/21 sertraline 50 mg tablet 50 mg PO DAILY 08/18/20 01/19/21 carvedilol 25 mg tablet 25 mg PO BID 08/25/20 01/19/21 aspirin 81 mg chewable tablet 1 tab PO DAILY 01/19/21 01/19/21 sacubitril 24 mg-valsartan 26 mg 1 tab PO BID tab 01/19/21 01/19/21 tablet Previous Rx's Medication Instructions Recorded furosemide 80 mg tablet 80 mg PO .COMPLEX 90 Days #135 tab 09/30/20 spironolactone 25 mg tablet 25 mg PO DAILY #30 tab 01/19/21 furosemide [Lasix] 120 mg PO DAILY 14 Days #42 tab 03/12/21 potassium chloride 10 meq PO DAILY 14 Days #14 tab 03/12/21 Allergies Allergy/AdvReac Type Severity Reaction Status Date / Time regadenoson [Lexiscan] AdvReac Unknown dizziness Verified 08/25/20 11:04 Review of Systems Review of Systems: Yes all other systems are reviewed and are negative [facility] Past Medical History [facility] Narrative: Patient denies tobacco, alcohol and drug use. Medical History Acute on chronic combined systolic and diastolic CHF (congestive heart failure) CAD (coronary artery disease) Heart failure with reduced ejection fraction HLD (hyperlipidemia) Hypertension ICD (implantable cardioverter-defibrillator) in place Nonischemic cardiomyopathy Pacemaker Surgical History Hx of cardiac catheterization Family History Family History Father No problems noted. Mother No problems noted. Social History Social History Household Members: Spouse Housing: Apartment Alcohol intake: never Smoking Status: Never smoker Use of substances other than those prescribed or required for medical reasons: No Advance Directives: Yes Advance Directives Information Provided: Yes Advance Directives on File: No service: No Current occupational status: disabled Physical Exam Vital Signs: Vital Signs: Last Vital Signs Temp 98.3 F 03/12/21 07:52 Pulse 109 H 03/12/21 08:38 Resp 26 H 03/12/21 08:38 BP 129/92 H 03/12/21 08:38 Pulse Ox 96 03/12/21 08:38 Body Mass Index 28.5 Const: General: cooperative and healthy appearing Orientation/consciousness: oriented to person and oriented to place Limitations: no limitations HENMT: Head: Yes normal to inspection, Yes normocephalic and Yes atraumatic Ears: external ears normal General nose exam: Normal external nose present Face and sinus: Yes normal facial exam Mouth: Normal oral and palatal mucosa present Throat: Yes posterior oropharynx normal Eyes: Periorbital: periorbital findings normal Eyelids: Yes eyelids normal Conjunctivae: conjunctivae normal Sclerae: sclerae normal Corneas: corneas normal Pupils: Equal, round and reactive pupils present Direct Ophthalmoscopy: normal light reflex Neck: Neck: Yes full ROM, Yes no lymphadenopathy, Yes no meningeal signs, Yes trachea midline and Yes supple Chest: Chest palpation & inspection: normal inspection of the chest and normal palpation of entire chest wall Resp: Effort & Inspection: normal respiratory effort and able to speak in complete sentences Auscultation: rales bilateral at the base Cardio: Rate: regular rate Rhythm: regular rhythm Heart sounds: S1 normal heart sound present, S2 normal heart sound present and no murmurs GI: Inspection: Yes normal to inspection Palpation (GI): Soft to palpation, nontender, no guarding, not rigid and No hepatosplenomegaly present : General: Yes no CVA tenderness Back/Spine/Pelvis: Back: no CVA tenderness Cervical Spine: normal cervical lordosis Thoracic/Lumbar Spine: thoracic and lumbar spine normal to in spection Skin: Lesions: no lesions Rashes: no rashes Wounds: no wounds Neuro: General: oriented to person, oriented to place and no meningeal signs Cranial nerves: Yes CN's II-XII intact bilaterally and Yes Equal, round and reactive pupils present Cognition (Neuro): normal cognition Motor exam (neuro): 5/5 motor strength present throughout Extrem: General: Yes normal to inspection and Yes full ROM Psych: Appearance: well kempt Mental Status: mental status grossly normal Speech and movement: Normal speech and movement present Affect: normal affect Attitude: cooperative Thought process: Normal thought process pre sent Thought content: Normal thought content present Course Course Course Narrative: 66-year-old male who presents emergency department for evaluation of shortness of breath and chest pain x2 days. Vital signs reveal that he was initially hypertensive with a blood pressure of 151/95, tachycardic with pulse of 111. The patient's O2 saturation was 96% on room air. The patient's physical examination did reveal rales at the bases otherwise was unremarkable. I did order a cardiac workup on the patient. 1016: Laboratory evaluation revealed a initial high sensitivity troponin of 17.9 which was detectable but not elevated. Repeat 3 hour troponin was not significantly changed at 20.4. The patient's presentation is consistent with being fluid overloaded and he may have some mild CHF is the cause of his symptoms. I did discuss this with the patient. The patient takes furosemide 80 mg once a day. He was given a prescription for furosemide 120 mg daily for 14 days and then he was advised to go back to his 80 mg daily. He was also given a potassium supplement. He is advised to follow-up with his doctor return to the emergency department if his symptoms get worse or for gets any new symptoms that are concerning to him. MDM - SOB/Dyspnea Lab Data Result diagrams: 03/12/21 06:09 03/12/21 06:09 Labs: Lab Results 03/12/21 03/12/21 03/12/21 Range/Units 06:09 06:09 06:09 WBC 8.7 (4.8-10.8) X10*3/uL RBC 4.30 L (4.60-5.80) X10*6/uL Hgb 13.6 L (14.0-18.0) g/dl Hct 39.6 L (42-52) % MCV 92.1 (80-98) fL MCH 31.6 (27.0-33.0) pg MCHC 34.3 (31.0-36.0) g/dl RDW 13.2 (11.0-16.0) % Plt Count 169 (160-400) X10*3/uL MPV 11.0 (9.4-12.4) fL Immature Gran % (Auto) 0.3 (0.0-0.4) % Neut % (Auto) 75.8 H (45-73) % Lymph % (Auto) 16.6 L (20-40) % Swisher % (Auto) 6.0 (2-11) % Eos % (Auto) 0.7 (0-4) % Baso % (Auto) 0.6 (0-2) % Lymph # (Auto) 1.4 (1.2-4.9) X10*3/uL Swisher # (Auto) 0.5 (0.1-1.2) X10*3/uL Eos # (Auto) 0.1 (0.0-0.4) X10*3/uL Baso # (Auto) 0.1 (0.0-0.2) X10*3/uL Abs Immat Gran (auto) 0.03 (0.00-0.03) X10*3/uL Absolute Neuts (auto) 6.6 (2.0-8.3) X10*3/uL Absolute Nucleated RBC 0.000 (0.0-0.012) X10*3/uL Nucleated RBC % (auto) 0.0 (0.0-0.2) /100WBC Hold Blue Top SEE NOTE Sodium 139 (135-145) mmol/L Potassium 3.9 (3.3-5.1) mmol/L Chloride 104 (96-108) mmol/L Carbon Dioxide 25 (22-29) mmol/L Anion Gap 14 (12-20) BUN 15 (9-16) mg/dL Creatinine 0.82 (0.5-1.4) mg/dL Estim Creat Clear Calc TNP Estimated GFR > 60 Random Glucose 121 H (60-115) mg/dL Calcium 9.1 (8.4-10.2) mg/dL Troponin I High Sens (<3.5-35.0) ng/L 03/12/21 03/12/21 Range/Units 06:09 08:48 WBC (4.8-10.8) X10*3/uL RBC (4.60-5.80) X10*6/uL Hgb (14.0-18.0) g/dl Hct (42-52) % MCV (80-98) fL MCH (27.0-33.0) pg MCHC (31.0-36.0) g/dl RDW (11.0-16.0) % Plt Count (160-400) X10*3/uL MPV (9.4-12.4) fL Immature Gran % (Auto) (0.0-0.4) % Neut % (Auto) (45-73) % Lymph % (Auto) (20-40) % Swisher % (Auto) (2-11) % Eos % (Auto) (0-4) % Baso % (Auto) (0-2) % Lymph # (Auto) (1.2-4.9) X10*3/uL Swisher # (Auto) (0.1-1.2) X10*3/uL Eos # (Auto) (0.0-0.4) X10*3/uL Baso # (Auto) (0.0-0.2) X10*3/uL Abs Immat Gran (auto) (0.00-0.03) X10*3/uL Absolute Neuts (auto) (2.0-8.3) X10*3/uL Absolute Nucleated RBC (0.0-0.012) X10*3/uL Nucleated RBC % (auto) (0.0-0.2) /100WBC Hold Blue Top Sodium (135-145) mmol/L Potassium (3.3-5.1) mmol/L Chloride (96-108) mmol/L Carbon Dioxide (22-29) mmol/L Anion Gap (12-20) BUN (9-16) mg/dL Creatinine (0.5-1.4) mg/dL Estim Creat Clear Calc Estimated GFR Random Glucose (60-115) mg/dL Calcium (8.4-10.2) mg/dL Troponin I High Sens 17.9 20.4 (<3.5-35.0) ng/L ECG Data Attestation: I personally reviewed and interpreted this ECG as follows: Interpretation: 0538: Sinus tachycardia with a rate of 116, normal AL interval, prolonged QRS of 128 milliseconds, prolonged QTC of 478 milliseconds, no ST segment elevation, no ST segment depression, nonspecific T-wave abnormalities, incomplete left bundle-branch block, no old EKG for comparison. Discharge Plan Discharge Clinical Impression: Congestive heart failure Qualifiers: Heart failure type: unspecified Heart failure chronicity: acute Qualified Code(s): I50.9 - Heart failure, unspecified Patient Disposition: Home, Self-Care Instructions: Heart Failure (ED) Additional Instructions: Your chest x-ray and lung exam is consistent with fluid in the lungs which is making you short of breath. Restrict the amount of fluid that you drink to 1 L of fluid per day. I wrote a prescription for increased furosemide (Lasix) 40 mg pills, 3 pills once of day for 14 days. Stop your usual dose of furosemide 80 mg while you are on the higher dose. When you complete the 2 week course of the higher dose restart your furosemide 80 mg aly Weigh yourself daily. You should lose 2-4 lb over 2 week Follow-up with your doctor in 2 days. Please return to the emergency department if your symptoms get worse or if you develop any symptoms that are concerning to you. Prescriptions: New furosemide [Lasix] 40 mg tablet 120 mg PO DAILY 14 Days Qty: 42 RF: 0 potassium chloride 10 mEq tablet,ER particles/crystals 10 meq PO DAILY 14 Days Qty: 14 RF: 0 No Action carvedilol 25 mg tablet 25 mg PO BID RF: 0 furosemide [Lasix] 80 mg tablet 80 mg PO .COMPLEX 90 Days Qty: 135 RF: 1 aspirin 81 mg tablet,chewable 1 tab PO DAILY RF: 0 Entresto 24-26 mg tablet 1 tab PO BID RF: 0 spironolactone [Aldactone] 25 mg tablet 25 mg PO DAILY Qty: 30 RF: 5 rosuvastatin 40 mg tablet 40 mg PO DAILY RF: 0 sertraline 50 mg tablet 50 mg PO DAILY RF: 0 ezetimibe 10 mg tablet 10 mg PO DAILY RF: 0 aspirin [Adult Low Dose Aspirin] 81 mg tablet,delayed release (DR/EC) 81 mg PO DAILY RF: 0
== END 2021-03-12 10:44 | disposition home or self-care (01) ==
PROVIDERS: Emergency Provider Emergency Medicine Emergency Medical Services; PCP Internal Medicine
DX: I11.0 Hypertensive heart disease with heart failure (principal); I50.9 Heart failure, unspecified; R00.0 Tachycardia, unspecified; E78.5 Hyperlipidemia, unspecified; Z95.0 Presence of cardiac pacemaker; Z79.82 Long term (current) use of aspirin; Z79.02 Long term (current) use of antithrombotics/antiplatelets; Z79.899 Other long term (current) drug therapy
CPT/HCPCS: 36415; 71046; 80048; 84484; 85025; 93005; 99283; 99285

== ENCOUNTER 2021-05-22 09:58 | Emergency (ER) | payer OTHER, SELFPAY ==
--- NOTE | ~2021-05-22 | XR_ITS ---
EXAMINATION: XR CHEST CLINICAL INFORMATION: SOB. COMPARISON: Chest 03/12/2021 TECHNIQUE: Frontal view of the chest was obtained. FINDINGS: There is mild cardiomegaly with slight increased pulmonary vascularity. There is a solitary pacer electrode in the right ventricle. The lungs are well-expanded and clear. No gross bony abnormality seen. XR/XR chest 1V IMPRESSION: Cardiomegaly with mild pulmonary vascular congestion suspected. There is a pacer electrode in the right ventricle.
[2021-05-22 10:20] VITALS: BP 116/83; PULSE 100; RESP 16; TEMP 35.1; O2SAT 97; BMI 30.3
--- NOTE | 2021-05-22 10:56 | ECG_ITS ---
Test Reason : SOB Blood Pressure : / mmHG Vent. Rate : 086 BPM Atrial Rate : 086 BPM P-R Int : 206 ms QRS Dur : 116 ms QT Int : 444 ms P-R-T Axes : 059 -15 139 degrees QTc Int : 531 ms Normal sinus rhythm Incomplete left bundle branch block ST & T wave abnormality, consider lateral ischemia Prolonged QT Abnormal ECG When compared with ECG of 12-MAR-2021 05:38, Premature ventricular complexes are no longer Present Referred By: Ivory Quintero Electronically Signed By:HENNY SANDHU
--- NOTE | 2021-05-22 10:57 | ED_ITS ---
HPI - SOB/Dyspnea General Chief Complaint: Dyspnea Stated Complaint: fast heart rate Time Seen by Provider: 05/22/21 10:47 Source: patient Mode of arrival: ambulatory Limitations: no limitations History of Present Illness HPI Narrative: Patient comes emergency room complaining of rapid heart rate and shortness of breath. Patient states that he has been having multiple of these episodes, patient has cardioverter/defibrillator in place. Patient states that yesterday he had a sensation that his heart rate was beating too fast, this morning at 08:00 he received a phone call from the cardiology office getting him know that his heart rate was elevated at night and he needed to come for evaluation in the morning. Patient states that this moment, he feels that his heart rate is normal, feeling short of breath. Patient states that he takes 3 medications for his heart, he has not taking it in the last 3 days because he is tired of taking too many medications. Patient took all his meds this morning prior to arriving to the emergency room. At this time, patient denies chest pain, no shortness of breath, states his lower extremities have not been swollen except for a 1 time episode over 2 weeks ago Related Data Home Medications Medication Instructions Recorded Confirmed aspirin 81 mg tablet,delayed 81 mg PO DAILY 08/18/20 01/19/21 release (Adult Low Dose Aspirin) ezetimibe 10 mg tablet 10 mg PO DAILY 08/18/20 01/19/21 rosuvastatin 40 mg tablet 40 mg PO DAILY 08/18/20 01/19/21 sertraline 50 mg tablet 50 mg PO DAILY 08/18/20 01/19/21 carvedilol 25 mg tablet 25 mg PO BID 08/25/20 01/19/21 aspirin 81 mg chewable tablet 1 tab PO DAILY 01/19/21 01/19/21 sacubitril 24 mg-valsartan 26 mg 1 tab PO BID tab 01/19/21 01/19/21 tablet (Entresto) Previous Rx's Medication Instructions Recorded furosemide 80 mg tablet (Lasix) 80 mg PO .COMPLEX 90 Days #135 tab 09/30/20 spironolactone 25 mg tablet 25 mg PO DAILY #30 tab 01/19/21 (Aldactone) furosemide 40 mg tablet (Lasix) 120 mg PO DAILY 14 Days #42 tab 03/12/21 potassium chloride 10 mEq 10 meq PO DAILY 14 Days #14 tab 03/12/21 tablet,extended release(part/cryst) Allergies Allergy/AdvReac Type Severity Reaction Status Date / Time regadenoson [Lexiscan] AdvReac Unknown dizziness Verified 08/25/20 11:04 Review of Systems Review of Systems: Constitutional : No Weight loss, No Fever, No Chills, No Night Sweats, No Fatigue, No Malaise ENT/Mouth : No Hearing loss, No Ear Pain, No Nasal Congestion, No Sinus Pain, No Hoarseness, No sore throat, No Rhinorrhea, No Swallowing Difficulty Eyes: No Eye Pain, No Swelling, No Redness, No Foreign Body, No Discharge, No Vision Changes Cardiovascular : No Chest Pain, complaining of shortness of breath, worse with exertion, positive orthopnea, positive palpitations Respiratory : No Cough, No Sputum, No Wheezing, No Smoke Exposure Gastrointestinal : No Nausea, No Vomiting, No Diarrhea, No Constipation, No abdominal Pain, No Hematochezia, No Melena Genitourinary : no irregular bleeding, No Dysuria, No Urinary Frequency, No Hematuria, No Urinary Incontinence, No Urgency, No Flank Pain, No Urinary Flow Changes, No Hesitancy Musculoskeletal : No joint pain, No Myalgias, No Joint Swelling Skin : No Skin Lesions, No rash Neuro : No Weakness, No Numbness, No Paresthesias, No Loss of Consciousness, No Dizziness, No Headache Psych : No Anxiety/Panic, No Depression, No SI/HI/AH/VH, No Social Issues, Heme/Lymph: No Bruising, No Bleeding,No Lymphadenopathy Endocrine : No Polyuria, No Polydipsia, No Temperature Intolerance [facility] Past Medical History Medical History Acute on chronic combined systolic and diastolic CHF (congestive heart failure) CAD (coronary artery disease) Heart failure with reduced ejection fraction HLD (hyperlipidemia) Hypertension ICD (implantable cardioverter-defibrillator) in place Nonischemic cardiomyopathy Pacemaker Tachycardia Surgical History Hx of cardiac catheterization Family History Family History Father No problems noted. Mother No problems noted. 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: Yes ([employer]) Alcohol intake: never Advance Directives: No Advance Directives Information Provided: No service: No Current occupational status: disabled Physical Exam Vital Signs: Vital Signs: Last Vital Signs Temp 98.3 F 05/22/21 15:10 Pulse 96 05/22/21 15:10 Resp 12 05/22/21 15:10 BP 106/77 05/22/21 15:10 Pulse Ox 97 05/22/21 15:10 Body Mass Index 30.3 Const: Other: Appearance: Alert. Oriented X3. No acute distress. Eyes: Pupils equal, round and reactive to light. ENT: Pharynx normal. Neck: Normal inspection. Neck supple. No lymph nodes noted. No crepitus CVS: Normal heart rate and rhythm. Pulses normal. Normal S1 and S2 Respiratory: No respiratory distress. Breath sounds normal. No Wheezing. No rales Abdomen: Soft and nontender. No rigidity. No distention. Skin: Skin warm and dry. Normal skin color. Normal skin turgor. Extremities: No lower extremity edema. No Lacerations. No Rash Neuro: Oriented X 3. No motor deficit. No sensory deficit. Moving all extermities. No slurred speech. Course Course Course Narrative: In the emergency room, patient has not been tachycardic, patient has been asymptomatic. I discussed the labs and EKG with Dr. Ling, patient will be discharged home. Patient instructed to be compliant with his medications. MDM - SOB/Dyspnea Lab Data Result diagrams: 05/22/21 11:19 05/22/21 11:19 Labs: Lab Results 05/22/21 05/22/21 05/22/21 Range/Units 11:19 11:19 11:19 WBC 7.3 (4.8-10.8) X10*3/uL RBC 4.44 L (4.60-5.80) X10*6/uL Hgb 13.6 L (14.0-18.0) g/dl Hct 39.3 L (42-52) % MCV 88.5 (80-98) fL MCH 30.6 (27.0-33.0) pg MCHC 34.6 (31.0-36.0) g/dl RDW 13.2 (11.0-16.0) % Plt Count 163 (160-400) X10*3/uL MPV 11.4 (9.4-12.4) fL Immature Gran % (Auto) 0.3 (0.0-0.4) % Neut % (Auto) 74.0 H (45-73) % Lymph % (Auto) 17.2 L (20-40) % Anson % (Auto) 7.4 (2-11) % Eos % (Auto) 0.7 (0-4) % Baso % (Auto) 0.4 (0-2) % Lymph # (Auto) 1.3 (1.2-4.9) X10*3/uL Anson # (Auto) 0.5 (0.1-1.2) X10*3/uL Eos # (Auto) 0.1 (0.0-0.4) X10*3/uL Baso # (Auto) 0.0 (0.0-0.2) X10*3/uL Abs Immat Gran (auto) 0.02 (0.00-0.03) X10*3/uL Absolute Neuts (auto) 5.4 (2.0-8.3) X10*3/uL Absolute Nucleated RBC 0.000 (0.0-0.012) X10*3/uL Nucleated RBC % (auto) 0.0 (0.0-0.2) /100WBC PT 12.4 (9.9-13.0) SEC INR 1.1 (0.9-1.1) Sodium 139 (135-145) mmol/L Potassium 4.2 (3.3-5.1) mmol/L Chloride 103 (96-108) mmol/L Carbon Dioxide 27 (22-29) mmol/L Anion Gap 13 (12-20) BUN 13 (9-16) mg/dL Creatinine 0.85 (0.5-1.4) mg/dL Estim Creat Clear Calc 88.6 Estimated GFR > 60 Random Glucose 98 (60-115) mg/dL Calcium 9.1 (8.4-10.2) mg/dL Total Bilirubin 1.8 H (0.0-1.0) mg/dL Direct Bilirubin 0.5 (0.0-0.5) mg/dL AST 23 (5-37) U/L ALT 15 (0-40) U/L Alkaline Phosphatase 65 (39-117) U/L Troponin I High Sens (<3.5-35.0) ng/L B-Natriuretic Peptide (<100) pg/mL Total Protein 7.2 (6.5-8.0) g/dL Albumin 4.1 (3.5-5.0) g/dL 05/22/21 05/22/21 Range/Units 11:19 14:34 WBC (4.8-10.8) X10*3/uL RBC (4.60-5.80) X10*6/uL Hgb (14.0-18.0) g/dl Hct (42-52) % MCV (80-98) fL MCH (27.0-33.0) pg MCHC (31.0-36.0) g/dl RDW (11.0-16.0) % Plt Count (160-400) X10*3/uL MPV (9.4-12.4) fL Immature Gran % (Auto) (0.0-0.4) % Neut % (Auto) (45-73) % Lymph % (Auto) (20-40) % Anson % (Auto) (2-11) % Eos % (Auto) (0-4) % Baso % (Auto) (0-2) % Lymph # (Auto) (1.2-4.9) X10*3/uL Anson # (Auto) (0.1-1.2) X10*3/uL Eos # (Auto) (0.0-0.4) X10*3/uL Baso # (Auto) (0.0-0.2) X10*3/uL Abs Immat Gran (auto) (0.00-0.03) X10*3/uL Absolute Neuts (auto) (2.0-8.3) X10*3/uL Absolute Nucleated RBC (0.0-0.012) X10*3/uL Nucleated RBC % (auto) (0.0-0.2) /100WBC PT (9.9-13.0) SEC INR (0.9-1.1) Sodium (135-145) mmol/L Potassium (3.3-5.1) mmol/L Chloride (96-108) mmol/L Carbon Dioxide (22-29) mmol/L Anion Gap (12-20) BUN (9-16) mg/dL Creatinine (0.5-1.4) mg/dL Estim Creat Clear Calc Estimated GFR Random Glucose (60-115) mg/dL Calcium (8.4-10.2) mg/dL Total Bilirubin (0.0-1.0) mg/dL Direct Bilirubin (0.0-0.5) mg/dL AST (5-37) U/L ALT (0-40) U/L Alkaline Phosphatase (39-117) U/L Troponin I High Sens 24.7 27.9 (<3.5-35.0) ng/L B-Natriuretic Peptide 2257 H (<100) pg/mL Total Protein (6.5-8.0) g/dL Albumin (3.5-5.0) g/dL Imaging Data Chest x-ray: Radiologist's impression: FINDINGS: There is mild cardiomegaly with slight increased pulmonary vascularity. There is a solitary pacer electrode in the right ventricle. The lungs are well-expanded and clear. No gross bony abnormality seen. XR/XR chest 1V IMPRESSION: Cardiomegaly with mild pulmonary vascular congestion suspected. There is a pacer electrode in the right ventricle. ECG Data Attestation: I personally reviewed and interpreted this ECG as follows: (Sinus rhythm, heart rate 86, nonspecific ST segment elevation in V1 V2 lead 3, old T- wave inversions in V5 V6, QTC 531) Discharge Plan Discharge Clinical Impression: Tachycardia Patient Disposition: Home, Self-Care Instructions: Tachycardia (ED) Additional Instructions: Please be compliant with your medications. Do not skip doses, Please follow-up with your primary care physician tomorrow. If you have any worsening or new symptoms, please return to the emergency room or call 911 Prescriptions: No Action furosemide [Lasix] 40 mg tablet 120 mg PO DAILY 14 Days Qty: 42 RF: 0 potassium chloride 10 mEq tablet,ER particles/crystals 10 meq PO DAILY 14 Days Qty: 14 RF: 0 carvedilol 25 mg tablet 25 mg PO BID RF: 0 furosemide [Lasix] 80 mg tablet 80 mg PO .COMPLEX 90 Days Qty: 135 RF: 1 aspirin 81 mg tablet,chewable 1 tab PO DAILY RF: 0 Entresto 24-26 mg tablet 1 tab PO BID RF: 0 spironolactone [Aldactone] 25 mg tablet 25 mg PO DAILY Qty: 30 RF: 5 rosuvastatin 40 mg tablet 40 mg PO DAILY RF: 0 sertraline 50 mg tablet 50 mg PO DAILY RF: 0 ezetimibe 10 mg tablet 10 mg PO DAILY RF: 0 aspirin [Adult Low Dose Aspirin] 81 mg tablet,delayed release (DR/EC) 81 mg PO DAILY RF: 0 Referrals: Nash Anne MD [Physician] - 2 days
[2021-05-22 11:27] LABS: MANUAL DIFF FLAG NO
[2021-05-22 11:31] LABS: Basophils Percent Auto 0.4 % (0-2); Eosinophils Absolute Auto 0.1 X10*3/uL (0.0-0.4); Eosinophils Percent Auto 0.7 % (0-4); Hematocrit 39.3 % (42-52); Hemoglobin 13.6 g/dl (14.0-18.0); Imm Gran Abs Auto 0.02 X10*3/uL (0.00-0.03); Imm Gran Pct Auto 0.3 % (0.0-0.4); Lymphocytes Absolute Auto 1.3 X10*3/uL (1.2-4.9); Lymphocytes Percent Auto 17.2 % (20-40); Mean Corpuscular HGB Conc 34.6 g/dl (31.0-36.0); Mean Corpuscular Hemoglobin 30.6 pg (27.0-33.0); Mean Corpuscular Volume 88.5 fL (80-98); Mean Platelet Volume 11.4 fL (9.4-12.4); Monocytes Absolute Auto 0.5 X10*3/uL (0.1-1.2); Monocytes Percent Auto 7.4 % (2-11); Neutrophils Absolute Auto 5.4 X10*3/uL (2.0-8.3); Platelet Count 163 X10*3/uL (160-400); Red Blood Count 4.44 X10*6/uL (4.60-5.80); Red Cell Distribution Width 13.2 % (11.0-16.0); White Blood Count 7.3 X10*3/uL (4.8-10.8)
[2021-05-22 11:37] LABS: INTERNATIONAL NORM RATIO 1.1 (0.9-1.1); Prothrombin Time 12.4 SEC (9.9-13.0)
[2021-05-22 12:01] LABS: Alanine Aminotransferase 15 U/L (0-40); Albumin Level 4.1 g/dL (3.5-5.0); Alkaline Phosphatase 65 U/L (39-117); Anion Gap 13 (12-20); Aspartate Amino Transferase 23 U/L (5-37); Bilirubin Direct 0.5 mg/dL (0.0-0.5); Bilirubin Total 1.8 mg/dL (0.0-1.0); Blood Urea Nitrogen 13 mg/dL (9-16); Calcium 9.1 mg/dL (8.4-10.2); Carbon Dioxide 27 mmol/L (22-29); Chloride 103 mmol/L (96-108); Creatinine Clr Calc Pharmacy 88.6; Estimated Glomerular Filt Rate > 60; Glucose Random 98 mg/dL (60-115); Potassium 4.2 mmol/L (3.3-5.1); Sodium 139 mmol/L (135-145); Total Protein 7.2 g/dL (6.5-8.0)
[2021-05-22 12:03] LABS: B Type Natriuretic Peptide 2257 pg/mL (<100); Troponin-I High Sensitivity 24.7 ng/L (<3.5-35.0)
[2021-05-22 15:10] VITALS: BP 106/77; PULSE 96; RESP 12; TEMP 36.8; O2SAT 97
[2021-05-22 15:19] LABS: Troponin-I High Sensitivity 27.9 ng/L (<3.5-35.0)
[2021-05-22 15:42] VITALS: BP 131/78; PULSE 100; RESP 16; O2SAT 98
== END 2021-05-22 15:46 | disposition home or self-care (01) ==
PROVIDERS: Emergency Provider Emergency Medicine; PCP Internal Medicine
DX: R00.0 Tachycardia, unspecified (principal); R06.02 Shortness of breath; Z91.14 Patient's other noncompliance with medication regimen; Z79.82 Long term (current) use of aspirin; Z79.899 Other long term (current) drug therapy
CPT/HCPCS: 36415; 71045; 80048; 80076; 83880; 84484; 85025; 85610; 93005; 99284

== ENCOUNTER → 2021-06-12 10:14 | Outpatient (REF) | payer OTHER, SELFPAY ==
--- NOTE | 2021-06-12 10:17 | HM_ITS ---
Total monitoring time 6 days and 23 hours. Underlying rhythm is sinus. Minimum heart rate 71/Min. Maximum 134/Min. Average 92/Min. About 21% of the time, rate greater than 100/Min. No atrial fibrillation or flutter. No AV blocks or pauses. Frequent PVCs with a burden of 2.27%. Three morphologies. Several couplets. Episodes of NSVT noted, longest 15 beats. Occasional supraventricular ectopy but low burden. No specific patient symptoms mentioned. MTDD
== END ==
LOC: HO.CARD 10:14
PROVIDERS: Visit Provider Nurse Practitioner Family
DX: R00.0 Tachycardia, unspecified (principal); I42.8 Other cardiomyopathies; I25.10 Atherosclerotic heart disease of native coronary artery without angina pectoris
CPT/HCPCS: 93225; 93242

== ENCOUNTER → 2021-07-10 10:07 | Outpatient (BNVA) | payer OTHER, SELFPAY | PROVIDERS: PCP Internal Medicine; Visit Provider Internal Medicine Cardiovascular Disease | DX: I47.1 Supraventricular tachycardia (principal); I50.20 Unspecified systolic (congestive) heart failure; Z95.810 Presence of automatic (implantable) cardiac defibrillator | CPT/HCPCS: 99212 ==

== ENCOUNTER 2021-07-15 10:07 | Outpatient (REF) | payer OTHER, SELFPAY ==
[2021-07-15 11:24] LABS: Anion Gap 14 (12-20); Blood Urea Nitrogen 14 mg/dL (9-16); Calcium 9.3 mg/dL (8.4-10.2); Carbon Dioxide 27 mmol/L (22-29); Chloride 102 mmol/L (96-108); Estimated Glomerular Filt Rate > 60; Glucose Random 105 mg/dL (60-115); Potassium 4.8 mmol/L (3.3-5.1); Sodium 138 mmol/L (135-145)
[2021-07-15 11:53] LABS: Digoxin 1.1 ng/mL (0.8-2.0)
== END 2021-07-15 10:08 | disposition home or self-care (01) ==
LOC: HO.LAB 10:07
PROVIDERS: PCP Internal Medicine; Visit Provider Internal Medicine Cardiovascular Disease
DX: I50.20 Unspecified systolic (congestive) heart failure (principal); Z79.899 Other long term (current) drug therapy
CPT/HCPCS: 36415; 80048; 80162

== ENCOUNTER → 2021-07-17 09:59 | Outpatient (BNVA) | payer OTHER, SELFPAY | PROVIDERS: PCP Internal Medicine; Visit Provider Internal Medicine Cardiovascular Disease ==

== ENCOUNTER 2021-10-01 10:14 | Outpatient (REF) | payer OTHER, SELFPAY ==
[2021-10-01 11:08] LABS: Alanine Aminotransferase 22 U/L (0-40); Albumin Level 4.3 g/dL (3.5-5.0); Alkaline Phosphatase 55 U/L (39-117); Anion Gap 12 (12-20); Aspartate Amino Transferase 23 U/L (5-37); Bilirubin Total 0.7 mg/dL (0.0-1.0); Blood Urea Nitrogen 10 mg/dL (9-16); Calcium 9.1 mg/dL (8.4-10.2); Carbon Dioxide 31 mmol/L (22-29); Chloride 100 mmol/L (96-108); Estimated Glomerular Filt Rate > 60; Glucose Random 143 mg/dL (60-115); Potassium 5.1 mmol/L (3.3-5.1); Sodium 138 mmol/L (135-145); Total Protein 7.3 g/dL (6.5-8.0)
== END 2021-10-01 10:15 | disposition home or self-care (01) ==
LOC: HO.LAB 10:14
PROVIDERS: PCP Internal Medicine; Visit Provider Internal Medicine
DX: I11.0 Hypertensive heart disease with heart failure (principal); I50.43 Acute on chronic combined systolic (congestive) and diastolic (congestive) heart failure; M25.572 Pain in left ankle and joints of left foot
CPT/HCPCS: 36415; 80053

== ENCOUNTER 2021-10-02 09:53 | Outpatient (REF) | payer OTHER, SELFPAY ==
[2021-10-02 12:08] LABS: B Type Natriuretic Peptide 351 pg/mL (<100)
[2021-10-02 12:15] LABS: Anion Gap 13 (12-20); Blood Urea Nitrogen 11 mg/dL (9-16); Calcium 9.2 mg/dL (8.4-10.2); Carbon Dioxide 29 mmol/L (22-29); Chloride 102 mmol/L (96-108); Estimated Glomerular Filt Rate > 60; Glucose Random 124 mg/dL (60-115); Potassium 4.7 mmol/L (3.3-5.1); Sodium 139 mmol/L (135-145)
[2021-10-02 13:03] LABS: Digoxin 1.2 ng/mL (0.8-2.0)
== END 2021-10-02 09:54 | disposition home or self-care (01) ==
LOC: HO.LAB 09:53
PROVIDERS: PCP Internal Medicine; Visit Provider Internal Medicine Cardiovascular Disease
DX: I50.20 Unspecified systolic (congestive) heart failure (principal); I47.1 Supraventricular tachycardia; I42.8 Other cardiomyopathies; I48.20 Chronic atrial fibrillation, unspecified; Z79.899 Other long term (current) drug therapy; Z95.810 Presence of automatic (implantable) cardiac defibrillator
CPT/HCPCS: 36415; 80048; 80162; 83880; 99212

== ENCOUNTER 2022-01-01 10:03 | Outpatient (REF) | payer OTHER, SELFPAY ==
[2022-01-01 10:42] LABS: MANUAL DIFF FLAG NO
[2022-01-01 11:05] LABS: Basophils Absolute Auto 0.1 X10*3/uL (0.0-0.2); Basophils Percent Auto 0.5 % (0-2); Eosinophils Absolute Auto 0.1 X10*3/uL (0.0-0.4); Eosinophils Percent Auto 1.2 % (0-4); Hematocrit 45.5 % (42.0-52.0); Hemoglobin 15.4 g/dl (14.0-18.0); Imm Gran Abs Auto 0.03 X10*3/uL (0.00-0.03); Imm Gran Pct Auto 0.3 % (0.0-0.4); Lymphocytes Percent Auto 21.7 % (20-40); Mean Corpuscular HGB Conc 33.8 g/dl (31.0-36.0); Mean Corpuscular Hemoglobin 31.4 pg (27.0-33.0); Mean Corpuscular Volume 92.9 fL (80.0-98.0); Mean Platelet Volume 11.3 fL (9.4-12.4); Monocytes Absolute Auto 0.9 X10*3/uL (0.1-1.2); Monocytes Percent Auto 9.3 % (2-11); Neutrophils Absolute Auto 6.2 x10*3/uL (2.0-8.3); Platelet Count 201 X10*3/uL (160-400); Red Cell Distribution Width 11.9 % (11.0-16.0); White Blood Count 9.2 X10*3/uL (4.8-10.8)
[2022-01-01 11:17] LABS: Estimated Average Glucose 140 mg/dL; Hemoglobin A1c % 6.5 %
[2022-01-01 11:38] LABS: Alanine Aminotransferase 24 U/L (0-40); Albumin Level 4.4 g/dL (3.5-5.0); Alkaline Phosphatase 58 U/L (39-117); Anion Gap 15 (12-20); Aspartate Amino Transferase 22 U/L (5-37); Bilirubin Total 0.7 mg/dL (0.0-1.0); Blood Urea Nitrogen 12 mg/dL (9-16); Calcium 9.5 mg/dL (8.4-10.2); Carbon Dioxide 30 mmol/L (22-29); Chloride 98 mmol/L (96-108); Cholesterol 173 mg/dL; Estimated Glomerular Filt Rate > 60; Glucose Random 145 mg/dL (60-115); HDL Cholesterol 40 mg/dL; LDL Cholesterol Calculated 90 mg/dl; Potassium 4.9 mmol/L (3.3-5.1); Sodium 138 mmol/L (135-145); Total Protein 7.6 g/dL (6.5-8.0); Triglycerides 218 mg/dL
== END 2022-01-01 10:04 | disposition home or self-care (01) ==
LOC: HO.LAB 10:03
PROVIDERS: PCP Internal Medicine; Visit Provider Internal Medicine
DX: Z00.00 Encounter for general adult medical examination without abnormal findings (principal); E78.00 Pure hypercholesterolemia, unspecified; F32.5 Major depressive disorder, single episode, in full remission; I50.43 Acute on chronic combined systolic (congestive) and diastolic (congestive) heart failure; R73.01 Impaired fasting glucose
CPT/HCPCS: 36415; 80053; 80061; 83036; 85025

== ENCOUNTER → 2022-01-06 10:46 | Outpatient (BNVA) | payer OTHER, SELFPAY | PROVIDERS: PCP Internal Medicine; Referring Provider Internal Medicine; Visit Provider Internal Medicine Cardiovascular Disease | DX: Z45.02 Encounter for adjustment and management of automatic implantable cardiac defibrillator (principal); I47.1 Supraventricular tachycardia; I50.20 Unspecified systolic (congestive) heart failure | CPT/HCPCS: 99212 ==

== ENCOUNTER 2022-01-22 16:52 | Observation (INO) | payer OTHER, SELFPAY ==
--- NOTE | ~2022-01-22 | XR_ITS ---
EXAMINATION: XR CHEST CLINICAL INFORMATION: Chest pain. COMPARISON: Chest radiograph dated from 05/22/2021. TECHNIQUE: 2 views of the chest were obtained. FINDINGS: Stable prominence of the cardiomediastinal silhouette and similar positioning of a left sided pacer/AICD. No new focal airspace opacities, pleural effusions or pneumothorax. No acute osseous abnormalities. The visualized upper abdomen is within normal limits. EKG wires overlie the chest. XR/XR chest 2V IMPRESSION: No acute cardiopulmonary findings. Similar cardiomegaly.
[2022-01-22 17:10] VITALS: BP 147/86; PULSE 85; RESP 19; TEMP 36.6; O2SAT 97; BMI 29.8
--- NOTE | 2022-01-22 17:12 | ECG_ITS ---
Test Reason : CP Blood Pressure : / mmHG Vent. Rate : 078 BPM Atrial Rate : 078 BPM P-R Int : 224 ms QRS Dur : 120 ms QT Int : 380 ms P-R-T Axes : 048 -32 125 degrees QTc Int : 433 ms Sinus rhythm with 1st degree A-V block Left axis deviation Left ventricular hypertrophy with QRS widening and repolarization abnormality ( R in aVL , Kelechi product ) Abnormal ECG When compared with ECG of 22-MAY-2021 11:46, No significant changes seen Referred By: Generic ED Physician Electronically Signed By:HENNY SANDHU
[2022-01-22 17:38] LABS: MANUAL DIFF FLAG NO
[2022-01-22 17:39] LABS: Basophils Absolute Auto 0.1 X10*3/uL (0.0-0.2); Basophils Percent Auto 0.5 % (0-2); Eosinophils Absolute Auto 0.1 X10*3/uL (0.0-0.4); Eosinophils Percent Auto 0.5 % (0-4); Hemoglobin 14.9 g/dl (14.0-18.0); Imm Gran Abs Auto 0.02 X10*3/uL (0.00-0.03); Imm Gran Pct Auto 0.2 % (0.0-0.4); Lymphocytes Percent Auto 18.4 % (20-40); Mean Corpuscular HGB Conc 34.7 g/dl (31.0-36.0); Mean Corpuscular Hemoglobin 31.4 pg (27.0-33.0); Mean Corpuscular Volume 90.7 fL (80.0-98.0); Monocytes Absolute Auto 0.9 X10*3/uL (0.1-1.2); Monocytes Percent Auto 8.6 % (2-11); Neutrophils Absolute Auto 7.9 x10*3/uL (2.0-8.3); Neutrophils Percent Auto 71.8 % (45-73); Platelet Count 269 X10*3/uL (160-400); Red Blood Count 4.74 X10*6/uL (4.60-5.80); Red Cell Distribution Width 11.8 % (11.0-16.0)
--- NOTE | 2022-01-22 17:41 | ED_ITS ---
HPI - Chest Pain General Chief Complaint: Chest Pain Stated Complaint: chest pains Time Seen by Provider: 01/22/22 17:40 Source: patient Mode of arrival: ambulatory Limitations: no limitations History of Present Illness HPI narrative: Patient is a 66 year old male presenting to the emergency department today with central chest pain. Patient states that for the last 2 hours he has had central chest pain that he describes as a burning sensation. Patient states that nothing makes it worse and nothing makes it better. Patient states that the pain does not radiate anywhere. Patient denies any dizziness, lightheadedness, abdominal pain, nausea, vomiting, fever, chills, blurry vision, double vision, loss of vision, difficulty breathing, shortness of breath, back pain, night sweats, pain with urination, increased urinary frequency, increased urinary urgency, blood in his urine or stool, syncope or a near syncopal episode, recent trauma or falls, bowel incontinence, bladder incontinence, bowel retention, bladder retention, or any other complaints at this time. MD complaint: chest pain Pertinent past history: coronary artery disease Onset (ago): hour(s) (2) Timing of current episode: constant Prior episodes: Yes Pain location: substernal Pain radiation: none Severity: mild Pain scale (0-10): 3 Risk Factors Coronary artery disease risk factors: hyperlipidemia and hypertension Related Data Home Medications Medication Instructions Recorded Confirmed aspirin 81 mg tablet,delayed 81 mg PO DAILY 08/18/20 01/06/22 release (Adult Low Dose Aspirin) ezetimibe 10 mg tablet 10 mg PO DAILY 08/18/20 01/06/22 rosuvastatin 40 mg tablet 40 mg PO DAILY 08/18/20 01/06/22 sertraline 50 mg tablet 50 mg PO DAILY 08/18/20 01/06/22 carvedilol 25 mg tablet 25 mg PO BID 08/25/20 01/06/22 Previous Rx's Medication Instructions Recorded potassium chloride 10 mEq 10 meq PO DAILY 14 Days #14 tab 03/12/21 tablet,extended release(part/cryst) sacubitril 24 mg-valsartan 26 mg 1 tab PO BID 90 Days #180 tab 07/20/21 tablet (Entresto) furosemide 80 mg tablet (Lasix) 80 mg PO .COMPLEX 90 Days #135 tab 09/11/21 spironolactone 25 mg tablet 25 mg PO DAILY #30 tab 09/21/21 (Aldactone) digoxin 250 mcg (0.25 mg) tablet 250 mcg PO DAILY #30 tab 12/30/21 ivabradine 5 mg tablet (Corlanor) 5 mg PO BID #60 tab 01/06/22 Allergies Allergy/AdvReac Type Severity Reaction Status Date / Time regadenoson [Lexiscan] AdvReac Unknown dizziness Verified 08/25/20 11:04 Review of Systems Constitutional: Constitutional: Reports no additional constitutional complaints, Denies chills, Denies fever(s) and Denies night sweats Eyes: Eyes: Reports no additional eye complaints, Denies blurry vision, Denies change in vision, Denies diplopia, Denies eye discharge, Denies loss of vision and Denies eye pain ENT: Denies dizziness Cardiovascular: Cardiovascular: Reports no additional cardiovascular complaints, Reports chest pain, Denies lightheadedness, Denies Loss of Consciousness and Denies dyspnea Respiratory: Respiratory: Reports no additional respiratory complaints and Denies dyspnea Gastrointestinal: Gastrointestinal: Reports no additional gastrointestinal complaints, Denies abdominal pain, Denies melena, Denies hematochezia, Denies change in bowel habits and Denies change in stool character Genitourinary: Genitourinary: Reports no additional male genitourinary complaints, Denies hematuria, Denies oliguria, Denies difficulty urinating, Denies dysuria, Denies urinary frequency, Denies urinary hesitancy, Denies urinary incontinence and Denies urinary urgency Musculoskeletal: Musculoskeletal: Reports no additional musculoskeletal c omplaints, Denies numbness and Denies tingling Neurologic: Denies dizziness, Denies loss of vision, Denies numbness and Denies tingling Psychiatric: Psychiatric: Reports no additional psychiatric complaints Endocrine: Endocrine: Reports no additional endocrine complaints Hematologic/Lymphatic: Hematologic/Lymphatic: Reports no additional hematologic/lymphatic complaints Allergic/Immunologic: Allergic/Immunologic: Reports no additional allergic/immunologic complaints PMFSH Past Medical History Attestation statement: The following information was validated with the patient. Source: old records reviewed Medical History Acute on chronic combined systolic and diastolic CHF (congestive heart failure) CAD (coronary artery disease) Heart failure with reduced ejection fraction HLD (hyperlipidemia) Hypertension ICD (implantable cardioverter-defibrillator) in place Nonischemic cardiomyopathy Pacemaker Surgical History Hx of cardiac catheterization Family History Family History Father No problems noted. Mother No problems noted. 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) Alcohol intake: never Patient Tobacco Use Status: Never used Tobacco Use of substances other than those prescribed or required for medical reasons: No Advance Directives: No Advance Directives Information Provided: No service: No Current occupational status: disabled Physical Exam Vital Signs: Vital Signs: Last Vital Signs Temp 98.4 F 01/22/22 22:22 Pulse 77 01/22/22 22:22 Resp 25 H 01/22/22 22:22 BP 138/83 01/22/22 22:22 Pulse Ox 97 01/22/22 22:22 BMI result Body Mass Index 29.8 Const: General: cooperative, no acute distress, alert and awake Nutritional Appearance: well nourished Orientation/consciousness: patient oriented x3 Limitations: no limitations HEENT: Head: Yes normal to inspection and Yes atraumatic Ears: hearing grossly normal bilaterally and external ears normal General nose exam: Normal external nose present, no nasal discharge noted and no epistaxis Face and sinus: Yes normal facial exam, No abrasion and No laceration Mouth: Normal oral and palatal mucosa present, no drooling and no muffled voice Eyes: General: appearance normal, both eyes and all related structures Periorbital: periorbital findings normal Eyelids: Yes eyelids normal Conjunctivae: conjunctivae normal Pupils: Equal, round and reactive pupils present EOM: EOMs intact bilaterally Neck: Neck: Yes normal visual inspection, Yes full ROM and Yes no lymphadenopathy Chest: Chest palpation & inspection: normal inspection of the chest Resp: Effort & Inspection: normal respiratory effort and able to speak in complete sentences GI: Inspection: Yes normal to inspection Neuro: General: patient oriented x3 and moves all extremities Cranial nerves: Yes Equal, round and reactive pupils present Cognition (Neuro): normal cognition Motor exam (neuro): 5/5 motor strength present throughout Sensory Exam: Normal double simultaneous stimulation for sensation Coordination: [id number] test normal Extrem: General: Yes normal to inspection, Yes full ROM and Yes capillary refill normal Psych: Appearance: grossly normal Mental Status: mental status grossly normal Affect: normal affect Attitude: cooperative Thought process: Normal thought process present Thought content: Normal thought content present Insight: Good insight present (Psych) MDM - Chest Pain MDM Narrative Medical decision making narrative: Patient is a 66 year old male presenting to the emergency department today with chest pain. Patient's physical exam was unremarkable. Patient's blood work showed a slightly elevated troponin of 19.7 however his repeat decreased to 19.4. Patient's EKG showed new, minimal, ST elevation in the anterior leads. Patient's chest x-ray showed no acute process. I explained my physical exam findings as well as all test results to the patient. I answered all questions asked by the patient. I spoke to Dr. Ling who recommended admitting the patient. Due to the patient's extensive cardiac history of HLD, HTN, CHF, SVT, Cardiomyopathy, CAD, and an ICD, I agree this patient should be admitted for an ACS rule out. Differential Diagnosis Differential diagnosis: Likely stable angina, unstable angina pectoris, atypical chest pain and costochondritis Differential diagnosis: GERD Medical Records Data Attestation: I reviewed the patient's medical records. Lab Data Attestation: I reviewed the patient's lab results. Result diagrams: 01/22/22 17:31 01/22/22 17:31 Labs: Lab Results 01/22/22 01/22/22 01/22/22 Range/Units 17:31 17:31 17:31 WBC 11.0 H (4.8-10.8) X10*3/uL RBC 4.74 (4.60-5.80) X10*6/uL Hgb 14.9 (14.0-18.0) g/dl Hct 43.0 (42.0-52.0) % MCV 90.7 (80.0-98.0) fL MCH 31.4 (27.0-33.0) pg MCHC 34.7 (31.0-36.0) g/dl RDW 11.8 (11.0-16.0) % Plt Count 269 D (160-400) X10*3/uL MPV 11.0 (9.4-12.4) fL Immature Gran % (Auto) 0.2 (0.0-0.4) % Neut % (Auto) 71.8 (45-73) % Lymph % (Auto) 18.4 L (20-40) % [place] % (Auto) 8.6 (2-11) % Eos % (Auto) 0.5 (0-4) % Baso % (Auto) 0.5 (0-2) % Lymph # (Auto) 2.0 (1.2-4.9) X10*3/uL [place] # (Auto) 0.9 (0.1-1.2) X10*3/uL Eos # (Auto) 0.1 (0.0-0.4) X10*3/uL Baso # (Auto) 0.1 (0.0-0.2) X10*3/uL Abs Immat Gran (auto) 0.02 (0.00-0.03) X10*3/uL Absolute Neuts (auto) 7.9 (2.0-8.3) x10*3/uL Absolute Nucleated RBC 0.000 (0.0-0.012) X10*3/uL Nucleated RBC % (auto) 0.0 (0.0-0.2) /100WBC Sodium 135 (135-145) mmol/L Potassium 4.6 (3.3-5.1) mmol/L Chloride 97 (96-108) mmol/L Carbon Dioxide 30 H (22-29) mmol/L Anion Gap 13 (12-20) BUN 13 (9-16) mg/dL Creatinine 0.89 (0.5-1.4) mg/dL Estim Creat Clear Calc 84.0 Estimated GFR > 60 Random Glucose 111 (60-115) mg/dL Calcium 9.3 (8.4-10.2) mg/dL Total Bilirubin (0.0-1.0) mg/dL Direct Bilirubin (0.0-0.5) mg/dL AST (5-37) U/L ALT (0-40) U/L Alkaline Phosphatase (39-117) U/L Troponin I High Sens 19.7 (<3.5-35.0) ng/L B-Natriuretic Peptide 731 H (<100) pg/mL Total Protein (6.5-8.0) g/dL Albumin (3.5-5.0) g/dL 01/22/22 01/22/22 Range/Units 17:56 21:08 WBC (4.8-10.8) X10*3/uL RBC (4.60-5.80) X10*6/uL Hgb (14.0-18.0) g/dl Hct (42.0-52.0) % MCV (80.0-98.0) fL MCH (27.0-33.0) pg MCHC (31.0-36.0) g/dl RDW (11.0-16.0) % Plt Count (160-400) X10*3/uL MPV (9.4-12.4) fL Immature Gran % (Auto) (0.0-0.4) % Neut % (Auto) (45-73) % Lymph % (Auto) (20-40) % [place] % (Auto) (2-11) % Eos % (Auto) (0-4) % Baso % (Auto) (0-2) % Lymph # (Auto) (1.2-4.9) X10*3/uL [place] # (Auto) (0.1-1.2) X10*3/uL Eos # (Auto) (0.0-0.4) X10*3/uL Baso # (Auto) (0.0-0.2) X10*3/uL Abs Immat Gran (auto) (0.00-0.03) X10*3/uL Absolute Neuts (auto) (2.0-8.3) x10*3/uL Absolute Nucleated RBC (0.0-0.012) X10*3/uL Nucleated RBC % (auto) (0.0-0.2) /100WBC Sodium (135-145) mmol/L Potassium (3.3-5.1) mmol/L Chloride (96-108) mmol/L Carbon Dioxide (22-29) mmol/L Anion Gap (12-20) BUN (9-16) mg/dL Creatinine (0.5-1.4) mg/dL Estim Creat Clear Calc Estimated GFR Random Glucose (60-115) mg/dL Calcium (8.4-10.2) mg/dL Total Bilirubin 0.4 (0.0-1.0) mg/dL Direct Bilirubin 0.2 (0.0-0.5) mg/dL AST 18 (5-37) U/L ALT 24 (0-40) U/L Alkaline Phosphatase 67 (39-117) U/L Troponin I High Sens 19.4 (<3.5-35.0) ng/L B-Natriuretic Peptide (<100) pg/mL Total Protein 7.3 (6.5-8.0) g/dL Albumin 4.2 (3.5-5.0) g/dL Imaging Data Chest x-ray: Attestation: I personally reviewed and interpreted this imaging study as follows: My impression: No acute process. Radiologist's impression: EXAMINATION: XR CHEST CLINICAL INFORMATION: Chest pain. COMPARISON: Chest radiograph dated from 05/22/2021. TECHNIQUE: 2 views of the chest were obtained. FINDINGS: Stable prominence of the cardiomediastinal silhouette and similar positioning of a left sided pacer/AICD. No new focal airspace opacities, pleural effusions or pneumothorax. No acute osseous abnormalities. The visualized upper abdomen is within normal limits. EKG wires overlie the chest. XR/XR chest 2V IMPRESSION: No acute cardiopulmonary findings. ? Similar cardiomegaly. Dictated By: Nabila Forman Signed By: Electronically signed by Shavon 01/22/22 1900 ECG Data ECG #1: Attestation: I personally reviewed and interpreted this ECG as follows: ECG interpretation date: 01/22/22 ECG interpretation time: 17:18 Prior ECG tracings: available for review Interpretation: Vent. Rate: 078 BPM ? ? Atrial Rate: 078 BPM P-R Int: 224 ms? QRS Dur: 120 ms QT Int: 380 ms ? ? ? P-R-T Axes: 048 -32 125 degrees QTc Int: 433 ms ? Sinus rhythm with 1st degree A-V block Left axis deviation Left ventricular hypertrophy with QRS widening and repolarization abnormality ( R in aVL , [place] product ) Abnormal ECG When compared with ECG of 22-MAY-2021 11:46, ST elevation now present in Anterior leads QT has shortened Discharge Plan Discharge Clinical Impression: Chest pain, ACS (acute coronary syndrome), CAD (coronary artery disease), ICD (implantable cardioverter-defibrillator) in place, HLD (hyperlipidemia) Patient Disposition: Admitted As Inpatient
[2022-01-22 17:52] LABS: Anion Gap 13 (12-20); Blood Urea Nitrogen 13 mg/dL (9-16); Calcium 9.3 mg/dL (8.4-10.2); Carbon Dioxide 30 mmol/L (22-29); Chloride 97 mmol/L (96-108); Estimated Glomerular Filt Rate > 60; Glucose Random 111 mg/dL (60-115); Potassium 4.6 mmol/L (3.3-5.1); Sodium 135 mmol/L (135-145)
[2022-01-22 17:59] LABS: B Type Natriuretic Peptide 731 pg/mL (<100); Troponin-I High Sensitivity 19.7 ng/L (<3.5-35.0)
[2022-01-22 18:19] LABS: Alanine Aminotransferase 24 U/L (0-40); Albumin Level 4.2 g/dL (3.5-5.0); Alkaline Phosphatase 67 U/L (39-117); Aspartate Amino Transferase 18 U/L (5-37); Bilirubin Direct 0.2 mg/dL (0.0-0.5); Bilirubin Total 0.4 mg/dL (0.0-1.0); Total Protein 7.3 g/dL (6.5-8.0)
[2022-01-22] MEDS: Magnesium Hydrox/Alum Hydrox 30 ML ORAL.SUSP 15 ML PO (19:59)
[2022-01-22] MEDS: Pantoprazole Sodium 40 MG/10 ML VIAL IVPUSH (19:59)
[2022-01-22] MEDS: Lidocaine HCl Viscous 2 % 15 ML SOLUTION MUCOUS MEM (19:59)
[2022-01-22 20:00] VITALS: BP 125/75; PULSE 80; RESP 18; TEMP 36.7; O2SAT 97
--- NOTE | 2022-01-22 20:05 | PC.NURSE ---
patient a&ox3, conveyor monitor nsr with pvcs, vss, pt medicated per order, c/o midsternal chest pain 12/31, call henson within reach, will continue to monitor.
[2022-01-22 21:39] LABS: Troponin-I High Sensitivity 19.4 ng/L (<3.5-35.0)
[2022-01-22 22:22] VITALS: BP 138/83; PULSE 77; RESP 25; TEMP 36.9; O2SAT 97
--- NOTE | 2022-01-22 22:40 | ECG_ITS ---
Test Reason : CHEST PAIN Blood Pressure : / mmHG Vent. Rate : 077 BPM Atrial Rate : 077 BPM P-R Int : 226 ms QRS Dur : 120 ms QT Int : 384 ms P-R-T Axes : 052 -24 132 degrees QTc Int : 434 ms Sinus rhythm with 1st degree A-V block with Premature atrial complexes Left ventricular hypertrophy with repolizeration abnormality. Abnormal ECG When compared with ECG of 22-JAN-2022 17:18, Premature atrial complexes are now Present Referred By: Lynette Ortega Electronically Signed By:HENNY SANDHU
--- NOTE | 2022-01-22 22:44 | P.HPHOSP_ITS ---
History of Present Illness Date of Service: 01/22/22 Chief Complaint: Chest pain 66-year-old male with a past medical history of hypertension, hyperlipidemia, CAD, CHF, history of AICD, presented to the hospital today with a chief complaint of chest pain. Patient reported the chest pain started this morning, tight in nature, located in the center of the chest, nonradiating, no associated lightheadedness dizzin ess or diaphoresis; constant in nature. Hence presented to the ER for further evaluation. Denies any fever chills cough. Denies any GI symptoms. Review of all other systems is negative except mentioned above ER course: Per ER team patient was given Protonix; aspirin; chest pain resolved; troponins-19.7-19.4; EKG showed subtle ST changes in V3; discussed with Dr. Ling from Cardiology-mentioned no obvious STEMI. Recommended admission for observation. [facility] Medical History Acute on chronic combined systolic and diastolic CHF (congestive heart failure) CAD (coronary artery disease) Heart failure with reduced ejection fraction HLD (hyperlipidemia) Hypertension ICD (implantable cardioverter-defibrillator) in place Nonischemic cardiomyopathy Pacemaker Family History Father No problems noted. Mother No problems noted. 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) Alcohol intake: never Patient Tobacco Use Status: Never used Tobacco Use of substances other than those prescribed or required for medical reasons: No Advance Directives: No Advance Directives Information Provided: No service: No Current occupational status: disabled Meds Allergies Allergy/AdvReac Type Severity Reaction Status Date / Time regadenoson [Lexiscan] AdvReac Unknown dizziness Verified 08/25/20 11:04 Active Medications: Current Medications Pharmacy Consult (Consult Rx Perform Med Rec) 1 each MISCELLANE ONCE PRN PRN Reason: Consult order Home Medications Medication Instructions Recorded Confirmed Last Taken Type aspirin 81 mg tablet,delayed 81 mg PO DAILY 08/18/20 01/06/2208/25/20 History release (Adult Low Dose Aspirin) ezetimibe 10 mg tablet 10 mg PO DAILY 08/18/20 01/06/22 08/25/20 History rosuvastatin 40 mg tablet 40 mg PO DAILY 08/18/20 01/06/22 08/25/20 History sertraline 50 mg tablet 50 mg PO DAILY 08/18/20 01/06/22 08/25/20 History carvedilol 25 mg tablet 25 mg PO BID 08/25/20 01/06/22 08/25/20 History Physical Exam Vital Signs and Narrative: Vital Signs: Last Vital Signs Temp 98.4 F 01/22/22 22:22 Pulse 77 01/22/22 22:22 Resp 25 H 01/22/22 22:22 BP 138/83 01/22/22 22:22 Pulse Ox 97 01/22/22 22:22 BMI result Body Mass Index 29.8 Gen: Appears be in no acute distress HEENT: NCAT, Moist mucosa. Pulmonary: Vesicular breath sounds, fair air entry CVS: Normal S1-S2 Abdomen: BS+, Soft, Nontender Extremities: Warm well perfused Neuro: Alert and awake. Results Labs CBC and Chem 7: 01/22/22 17:31 01/22/22 17:31 Labs: Laboratory Results - last 24 hr 01/22/22 01/22/22 01/22/22 17:31 17:31 17:31 MCV 90.7 MCH 31.4 MCHC 34.7 RDW 11.8 Plt Count 269 D MPV 11.0 Immature Gran % (Auto) 0.2 Neut % (Auto) 71.8 Lymph % (Auto) 18.4 L [place] % (Auto) 8.6 Eos % (Auto) 0.5 Baso % (Auto) 0.5 Lymph # (Auto) 2.0 [place] # (Auto) 0.9 Eos # (Auto) 0.1 Baso # (Auto) 0.1 Abs Immat Gran (auto) 0.02 Absolute Neuts (auto) 7.9 Absolute Nucleated RBC 0.000 Nucleated RBC % (auto) 0.0 Anion Gap 13 Estim Creat Clear Calc 84.0 Estimated GFR > 60 Random Glucose 111 Calcium 9.3 Total Bilirubin Direct Bilirubin AST ALT Alkaline Phosphatase Troponin I High Sens 19.7 B-Natriuretic Peptide 731 H Total Protein Albumin 01/22/22 01/22/22 17:56 21:08 MCV MCH MCHC RDW Plt Count MPV Immature Gran % (Auto) Neut % (Auto) Lymph % (Auto) [place] % (Auto) Eos % (Auto) Baso % (Auto) Lymph # (Auto) [place] # (Auto) Eos # (Auto) Baso # (Auto) Abs Immat Gran (auto) Absolute Neuts (auto) Absolute Nucleated RBC Nucleated RBC % (auto) Anion Gap Estim Creat Clear Calc Estimated GFR Random Glucose Calcium Total Bilirubin 0.4 Direct Bilirubin 0.2 AST 18 ALT 24 Alkaline Phosphatase 67 Troponin I High Sens 19.4 B-Natriuretic Peptide Total Protein 7.3 Albumin 4.2 Imaging Radiologist's Impressions: Impressions Chest X-Ray 01/22/22 18:13 IMPRESSION: No acute cardiopulmonary findings. Similar cardiomegaly. Assessment and Plan (1) Chest pain: Status: Acute Plan 66-year-old male with a past medical history of hypertension, hyperlipidemia, CAD, CHF, history of AICD, presented to the hospital today with a chief complaint of chest pain. Chest pain: Currently resolved Troponins x2 negative EKG showed nonspecific ST changes/question ST elevation in V3; notified Cardiology-mentioned no obvious STEMI. Monitor on telemetry Sublingual nitroglycerin p.r.n. Cardiology consult History of hypertension/hyperlipidemia/CAD: Continue home medications History of CHF: Continue home aspirin, statin, carvedilol, digoxin, ivabradine, Lasix. DVT prophylaxis: Lovenox Code status: Full code Quality Stroke Does the patient have a stroke diagnosis?: No VTE Prior VTE?: No VTE Risk Level:: Medical - moderate - high VTE Device Contraindication: Treatment Not Indicated VTE Drug Contraindication: N/A - Med Ordered
[2022-01-22] MEDS: Enoxaparin Sodium 40 MG/0.4 ML SYRINGE SUBCUT (22:49)
[2022-01-22] MEDS: Aspirin 81 MG TAB.CHEW 324 MG PO (22:49)
--- NOTE | 2022-01-22 22:51 | PC.NURSE ---
patient medicated per order
[2022-01-23 01:06] VITALS: BP 126/74; PULSE 73; RESP 14; O2SAT 97
[2022-01-23 01:20] LABS: COVID-19 Test Negative (Negative)
[2022-01-23 02:04] VITALS: BP 121/77; PULSE 67; RESP 10; O2SAT 99
[2022-01-23 05:28] VITALS: BP 119/68; PULSE 64; RESP 16; TEMP 36.9; O2SAT 98
[2022-01-23 06:59] LABS: MANUAL DIFF FLAG NO
[2022-01-23 07:12] LABS: Basophils Percent Auto 0.6 % (0-2); Eosinophils Absolute Auto 0.1 X10*3/uL (0.0-0.4); Eosinophils Percent Auto 1.3 % (0-4); Hematocrit 43.2 % (42.0-52.0); Hemoglobin 14.7 g/dl (14.0-18.0); Imm Gran Abs Auto 0.01 X10*3/uL (0.00-0.03); Imm Gran Pct Auto 0.1 % (0.0-0.4); Lymphocytes Absolute Auto 1.6 X10*3/uL (1.2-4.9); Lymphocytes Percent Auto 23.7 % (20-40); Mean Corpuscular Hemoglobin 30.9 pg (27.0-33.0); Mean Corpuscular Volume 90.9 fL (80.0-98.0); Mean Platelet Volume 11.1 fL (9.4-12.4); Monocytes Absolute Auto 0.8 X10*3/uL (0.1-1.2); Monocytes Percent Auto 11.4 % (2-11); Neutrophils Absolute Auto 4.3 x10*3/uL (2.0-8.3); Neutrophils Percent Auto 62.9 % (45-73); Platelet Count 222 X10*3/uL (160-400); Red Blood Count 4.75 X10*6/uL (4.60-5.80); Red Cell Distribution Width 11.7 % (11.0-16.0); White Blood Count 6.9 X10*3/uL (4.8-10.8)
[2022-01-23 07:22] LABS: Anion Gap 11 (12-20); Blood Urea Nitrogen 11 mg/dL (9-16); Calcium 8.9 mg/dL (8.4-10.2); Carbon Dioxide 27 mmol/L (22-29); Chloride 102 mmol/L (96-108); Creatinine Clr Calc Pharmacy 99.7; Estimated Glomerular Filt Rate > 60; Glucose Random 124 mg/dL (60-115); Potassium 4.2 mmol/L (3.3-5.1); Sodium 136 mmol/L (135-145)
[2022-01-23 08:16] VITALS: BP 125/80; PULSE 78; RESP 12; TEMP 36.3; O2SAT 98
--- NOTE | 2022-01-23 08:28 | PHA.MEDREC ---
med rec complete, only based on pharmacy history right now. 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 Medication Reconciliation Pharmacy has completed the medication reconciliation.
--- NOTE | 2022-01-23 11:01 | P.CONCA_ITS ---
History of Present Illness History of Present Illness Date of Service: 01/23/22 Chief complaint: chest pain Narrative: This is a cardiology consultation regarding chest pain. Discussed with patient using benefit specialist. He stated that as today afternoon or so he had a sandwich. Then apparently went to a store. After returning from the store, he developed some discomfort in the upper chest. [place] like a pressure. Last for about 2 hours or so. Then he came to the ER after which the discomfort resolved completely. Now he is back to his normal self. No other symptoms like s hortness of breath or palpitations or leg swelling or dizzy spells or syncopal episodes. He states that, he has been generally doing well otherwise. Has a diagnosis of nonischemic cardiomyopathy. He also has an ICD in place. Review of Systems Review of Systems: Yes all other systems are reviewed and are negative Constitutional: Constitutional: Reports as per HPI Eyes: Eyes: Reports as per HPI ENT: Reports as per HPI Cardiovascular: Cardiovascular: Reports as per HPI, Denies acrocyanosis, Denies cool extremities, Reports chest pain, Denies leg edema, Denies lightheadedness, Denies palpitations and Denies dyspnea Respiratory: Respiratory: Reports as per HPI, Reports no additional respiratory complaints and Denies dyspnea Gastrointestinal: Gastrointestinal: Reports as per HPI and Reports no additional gastrointestinal complaints Genitourinary: Genitourinary: Reports no additional male genitourinary complaints and Reports as per HPI Musculoskeletal: Musculoskeletal: Reports no additional musculoskeletal complaints and Reports as per HPI Integumentary/Breasts: Skin/Breast: Reports system reviewed and no additional complaints, except as docu Neurologic: Reports system reviewed and no additional complaints, except as documented and Reports as per HPI Psychiatric: Psychiatric: Reports no additional psychiatric complaints and Reports as per HPI Endocrine: Endocrine: Reports no additional endocrine complaints, Reports as per HPI and Denies palpitations Hematologic/Lymphatic: Hematologic/Lymphatic: Reports no additional hematologic/lymphatic complaints and Reports as per HPI Allergic/Immunologic: Allergic/Immunologic: Reports no additional allergic/immunologic complaints and Reports as per HPI PMF Past Medical History Medical History Acute on chronic combined systolic and diastolic CHF (congestive heart failure) CAD (coronary artery disease) Heart failure with reduced ejection fraction HLD (hyperlipidemia) Hypertension ICD (implantable cardioverter-defibrillator) in place Nonischemic cardiomyopathy Pacemaker Family History Family History Father No problems noted. Mother No problems noted. 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) Alcohol intake: never Patient Tobacco Use Status: Never used Tobacco Use of substances other than those prescribed or required for medical reasons: No Advance Directives: No Advance Directives Information Provided: No service: No Current occupational status: disabled Meds Allergies Allergy/AdvReac Type Severity Reaction Status Date / Time regadenoson [Lexiscan] AdvReac Unknown dizziness Verified 08/25/20 11:04 Active Medications: Current Medications Acetaminophen (Acetaminophen 325 Mg Tablet) 650 mg PO Q6H PRN PRN Reason: Pain, Mild (Pain Scale 1-3) Benzonatate (Benzonatate 100 Mg Capsule) 100 mg PO TID PRN PRN Reason: Cough Enoxaparin Sodium (Enoxaparin Sodium 40 Mg/0.4 Ml Syringe) 40 mg SUBCUT Q24H [facility] Last Admin: 01/22/22 22:49 Dose: 40 mg Documented by: Hydromorphone HCl (Hydromorphone Hcl 1 Mg/Ml Syringe) 0.5 mg IVPUSH Q4H PRN; Protocol PRN Reason: Pain, Severe (Pain Scale 7-10) Melatonin (Melatonin 3 Mg Tablet) 6 mg PO BEDTIME PRN PRN Reason: Insomnia Nitroglycerin (Nitroglycerin 0.4 Mg Tab.Subl) 0.4 mg SUBLINGUAL Q5MX3 PRN PRN Reason: Chest Pain Pharmacy Consult (Consult Rx Perform Med Rec) 1 each MISCELLANE ONCE PRN PRN Reason: Consult order Senna (Sennosides 8.6 Mg Tablet) 17.2 mg PO BEDTIME PRN PRN Reason: Constipation Sodium Chloride (0.9 % Sodium Chloride Flush 3 Ml Syringe) 3 ml IVFLUSH QSHIFT [facility] Last Admin: 01/23/22 10:01 Dose: Not Given Documented by: Home Medications Medication Instructions Recorded Confirmed Last Taken Type aspirin 81 mg tablet,delayed 81 mg PO DAILY 08/18/20 01/23/22 08/25/20 History release (Adult Low Dose Aspirin) ezetimibe 10 mg tablet 10 mg PO DAILY 08/18/20 01/23/22 08/25/20 History rosuvastatin 40 mg tablet 40 mg PO BEDTIME 08/18/20 01/23/22 08/25/20 History sertraline 50 mg tablet 50 mg PO DAILY 08/18/20 01/23/22 08/25/20 History carvedilol 12.5 mg tablet 12.5 mg PO BID 01/23/22 01/23/22 Unknown History potassium chloride 10 mEq 10 meq PO DAILY 01/23/22 01/23/22 Unknown History capsule,extended release Physical Exam Vital Signs: Vital Signs: Last Vital Signs Temp 97.4 F 01/23/22 08:16 Pulse 78 01/23/22 08:16 Resp 12 01/23/22 08:16 BP 125/80 01/23/22 08:16 Pulse Ox 98 01/23/22 08:16 BMI result Body Mass Index 29.8 Const: General: comfortable HEENT: Other: Unremarkable Head: Yes normal to inspection Neck: Neck: Yes normal visual inspection Chest: Chest palpation & inspection: normal inspection of the chest Resp: Auscultation: clear to auscultation bilaterally Cardio: Palpation: normal PMI Heart sounds: S1 normal heart sound present, S2 normal heart sound present, no gallops, no murmurs and no rubs GI: Palpation (GI): Soft to palpation Back/Spine/Pelvis: Other: unremarkable Skin: General skin exam: no rashes or lesions noted Neuro: Cognition (Neuro): normal cognition Extrem: General: Yes normal to inspection Psych: Mental Status: mental status grossly normal Objective Labs and Meds Result diagrams: 01/23/22 06:53 01/23/22 06:53 Lab results: Laboratory Results - last 24 hr 01/22/22 01/22/22 01/22/22 17:31 17:31 17:31 WBC 11.0 H RBC 4.74 Hgb 14.9 Hct 43.0 MCV 90.7 MCH 31.4 MCHC 34.7 RDW 11.8 Plt Count 269 D MPV 11.0 Immature Gran % (Auto) 0.2 Neut % (Auto) 71.8 Lymph % (Auto) 18.4 L [place] % (Auto) 8.6 Eos % (Auto) 0.5 Baso % (Auto) 0.5 Lymph # (Auto) 2.0 [place] # (Auto) 0.9 Eos # (Auto) 0.1 Baso # (Auto) 0.1 Abs Immat Gran (auto) 0.02 Absolute Neuts (auto) 7.9 Absolute Nucleated RBC 0.000 Nucleated RBC % (auto) 0.0 Sodium 135 Potassium 4.6 Chloride 97 Carbon Dioxide 30 H Anion Gap 13 BUN 13 Creatinine 0.89 Estim Creat Clear Calc 84.0 Estimated GFR > 60 Random Glucose 111 Calcium 9.3 Total Bilirubin Direct Bilirubin AST ALT Alkaline Phosphatase Troponin I High Sens 19.7 B-Natriuretic Peptide 731 H Total Protein Albumin COVID-19 (ARIANA) COVID-19 Clin Com 01/22/22 01/22/22 01/23/22 17:56 21:08 00:56 WBC RBC Hgb Hct MCV MCH MCHC RDW Plt Count MPV Immature Gran % (Auto) Neut % (Auto) Lymph % (Auto) [place] % (Auto) Eos % (Auto) Baso % (Auto) Lymph # (Auto) [place] # (Auto) Eos # (Auto) Baso # (Auto) Abs Immat Gran (auto) Absolute Neuts (auto) Absolute Nucleated RBC Nucleated RBC % (auto) Sodium Potassium Chloride Carbon Dioxide Anion Gap BUN Creatinine Estim Creat Clear Calc Estimated GFR Random Glucose Calcium Total Bilirubin 0.4 Direct Bilirubin 0.2 AST 18 ALT 24 Alkaline Phosphatase 67 Troponin I High Sens 19.4 B-Natriuretic Peptide Total Protein 7.3 Albumin 4.2 COVID-19 (ARIANA) Negative COVID-19 Clin Com See Note 01/23/22 01/23/22 06:53 06:53 WBC 6.9 RBC 4.75 Hgb 14.7 Hct 43.2 MCV 90.9 MCH 30.9 MCHC 34.0 RDW 11.7 Plt Count 222 MPV 11.1 Immature Gran % (Auto) 0.1 Neut % (Auto) 62.9 Lymph % (Auto) 23.7 [place] % (Auto) 11.4 H Eos % (Auto) 1.3 Baso % (Auto) 0.6 Lymph # (Auto) 1.6 [place] # (Auto) 0.8 Eos # (Auto) 0.1 Baso # (Auto) 0.0 Abs Immat Gran (auto) 0.01 Absolute Neuts (auto) 4.3 Absolute Nucleated RBC 0.000 Nucleated RBC % (auto) 0.0 Sodium 136 Potassium 4.2 Chloride 102 Carbon Dioxide 27 Anion Gap 11 L BUN 11 Creatinine 0.75 Estim Creat Clear Calc 99.7 Estimated GFR > 60 Random Glucose 124 H Calcium 8.9 Total Bilirubin Direct Bilirubin AST ALT Alkaline Phosphatase Troponin I High Sens B-Natriuretic Peptide Total Protein Albumin COVID-19 (ARIANA) COVID-19 Clin Com ECG Interpretation: EKG with sinus rhythm at 78/Min; left ventricle hypertrophy with some repolarization changes. No clear ischemic findings. Similar to last year's EKG. Imaging Radiologist's impression: Impressions Chest X-Ray 01/22/22 18:13 IMPRESSION: No acute cardiopulmonary findings. Similar cardiomegaly. 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 [id number] 10-15%; grade 3 diastolic dysfunction; mild mitral regurgitation; mild pulmonary hypertension. Moderately dilated left atrium. Cardiac catheterization -2013-left main-normal; LAD-40% stenosis mid LAD; mild luminal irregularities in circumflex and RCA. 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 Currently, cardiac BNP 731. Higher than value from September when it was 351. Prior to that, as much as 3000. High sensitivity troponins are within range. Chest x-ray with no acute findings. Cardiomegaly. Overall, no evidence of acute coronary syndrome based on the above. Not clear if he actually had a mild heart failure exacerbation causing chest discomfort/pressure type feeling. He does have some CAD from previous catheterization and that could have also progressed. At this time, we can plan on discharging him. Will arrange outpatient follow-up and do the needful. Procedures Date of Service Date of Service: 01/23/22
--- NOTE | 2022-01-23 11:44 | PM.DS ---
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 Patient reported the chest pain started this morning, tight in nature, located in the center of the chest, nonradiating, no associated lightheadedness dizziness or diaphoresis; constant in nature.?Hence presented to the ER for further evaluation.?Denies any fever chills cough.?Denies any GI symptoms.?Review of all other systems is negative except mentioned above. ER course: Per ER team patient was given Protonix; aspirin; chest pain resolved; troponins-19.7-19.4; EKG showed subtle ST changes in V3; discussed with Dr. Ling from Cardiology-mentioned no obvious STEMI.? Recommended admission for observation . Chest pain. Currently resolved. Troponins x2 negative. EKG showed nonspecific ST changes/question ST elevation in V3; notified Cardiology-mentioned no obvious STEMI. At this point does not appear to be ACS. 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 History of hypertension/hyperlipidemia/CAD. Continue home medications History of CHF. Continue home aspirin, statin, carvedilol, digoxin, ivabradine, Lasix.? Time Spent with Patient Time attestation: Total time spent providing and/or coordinating discharge services: Discharge coordination time: Greater than 30 minutes Quality: Safe Use of Opioids Does Pt have an Active Cancer Diagnosis on the Problem List?: No Quality: Stroke Does the patient have a stroke diagnosis?: No Physical Exam Vital Signs: Vital Signs: Last Vital Signs Temp 97.4 F 01/23/22 08:16 Pulse 78 01/23/22 08:16 Resp 12 01/23/22 08:16 BP 125/80 01/23/22 08:16 Pulse Ox 98 01/23/22 08:16 BMI result Body Mass Index 29.8 Appearing in no acute distress head is normocephalic atraumatic eyes pupils are PERRLA sclera is anicteric mouth throat mucous membranes are intact and moist neck is supple no lymphadenopathy, no JVD noted lung sounds are clear to auscultation heart regular rate rhythm, clear S1, S2 positive bowel sounds, abdomen is soft, nontender neuro patient is alert x3, no focal deficits DS: Data Data Completed and Pending Labs on day of discharge: Laboratory Results - last 24 hr 01/22/22 01/22/22 01/22/22 17:31 17:31 17:31 WBC 11.0 H RBC 4.74 Hgb 14.9 Hct 43.0 MCV 90.7 MCH 31.4 MCHC 34.7 RDW 11.8 Plt Count 269 D MPV 11.0 Immature Gran % (Auto) 0.2 Neut % (Auto) 71.8 Lymph % (Auto) 18.4 L [place] % (Auto) 8.6 Eos % (Auto) 0.5 Baso % (Auto) 0.5 Lymph # (Auto) 2.0 [place] # (Auto) 0.9 Eos # (Auto) 0.1 Baso # (Auto) 0.1 Abs Immat Gran (auto) 0.02 Absolute Neuts (auto) 7.9 Absolute Nucleated RBC 0.000 Nucleated RBC % (auto) 0.0 Sodium 135 Potassium 4.6 Chloride 97 Carbon Dioxide 30 H Anion Gap 13 BUN 13 Creatinine 0.89 Estim Creat Clear Calc 84.0 Estimated GFR > 60 Random Glucose 111 Calcium 9.3 Total Bilirubin Direct Bilirubin AST ALT Alkaline Phosphatase Troponin I High Sens 19.7 B-Natriuretic Peptide 731 H Total Protein Albumin COVID-19 ([facility]IANA) COVID-19 Clin Com 01/22/22 01/22/22 01/23/22 17:56 21:08 00:56 WBC RBC Hgb Hct MCV MCH MCHC RDW Plt Count MPV Immature Gran % (Auto) Neut % (Auto) Lymph % (Auto) [place] % (Auto) Eos % (Auto) Baso % (Auto) Lymph # (Auto) [place] # (Auto) Eos # (Auto) Baso # (Auto) Abs Immat Gran (auto) Absolute Neuts (auto) Absolute Nucleated RBC Nucleated RBC % (auto) Sodium Potassium Chloride Carbon Dioxide Anion Gap BUN Creatinine Estim Creat Clear Calc Estimated GFR Random Glucose Calcium Total Bilirubin 0.4 Direct Bilirubin 0.2 AST 18 ALT 24 Alkaline Phosphatase 67 Troponin I High Sens 19.4 B-Natriuretic Peptide Total Protein 7.3 Albumin 4.2 COVID-19 (ARIANA) Negative COVID-19 Clin Com See Note 01/23/22 01/23/22 06:53 06:53 WBC 6.9 RBC 4.75 Hgb 14.7 Hct 43.2 MCV 90.9 MCH 30.9 MCHC 34.0 RDW 11.7 Plt Count 222 MPV 11.1 Immature Gran % (Auto) 0.1 Neut % (Auto) 62.9 Lymph % (Auto) 23.7 [place] % (Auto) 11.4 H Eos % (Auto) 1.3 Baso % (Auto) 0.6 Lymph # (Auto) 1.6 [place] # (Auto) 0.8 Eos # (Auto) 0.1 Baso # (Auto) 0.0 Abs Immat Gran (auto) 0.01 Absolute Neuts (auto) 4.3 Absolute Nucleated RBC 0.000 Nucleated RBC % (auto) 0.0 Sodium 136 Potassium 4.2 Chloride 102 Carbon Dioxide 27 Anion Gap 11 L BUN 11 Creatinine 0.75 Estim Creat Clear Calc 99.7 Estimated GFR > 60 Random Glucose 124 H Calcium 8.9 Total Bilirubin Direct Bilirubin AST ALT Alkaline Phosphatase Troponin I High Sens B-Natriuretic Peptide Total Protein Albumin COVID-19 ([facility]IANA) COVID-19 Clin Com Discharge Plan Discharge Anticipated Discharge Date/Time: 01/23/22 11:21 Patient Disposition: Home, Self-Care Referrals: Imelda Sepulveda MD [Primary Care Provider] - 1 Week Discharge Medications: Continued Entresto 24-26 mg tablet 1 tab PO BID 90 Days Qty: 180 2RF furosemide [Lasix] 80 mg tablet 80 mg PO .COMPLEX 90 Days Qty: 135 1RF Rx Instructions: 80 mg PO daily and additional dose as needed for sob, weight gain of 5 lb; spironolactone [Aldactone] 25 mg tablet 25 mg PO DAILY Qty: 30 5RF digoxin 250 mcg (0.25 mg) tablet 250 mcg PO DAILY Qty: 30 5RF carvedilol 12.5 mg Tablet 12.5 mg PO BID 0RF Rx Instructions: must administer with a meal/food potassium chloride 10 mEq Capsule, Extended Release 10 meq PO DAILY 0RF rosuvastatin 40 mg tablet 40 mg PO BEDTIME 0RF sertraline 50 mg tablet 50 mg PO DAILY 0RF ezetimibe 10 mg tablet 10 mg PO DAILY 0RF aspirin [Adult Low Dose Aspirin] 81 mg tablet,delayed release (DR/EC) 81 mg PO DAILY 0RF [place] 5 mg tablet 5 mg PO BID Qty: 60 5RF Rx Instructions: must administer with a meal/food Discharge Orders: Discharge Order (Routine); Ordered 01/23/22 Ordered By: Mercedes Al Diet: advance to usual diet Activity on Discharge: As tolerated Stand Alone Forms: Patient Portal Discharge page Care Plan Goals: Resolution of symptoms Health Concerns: Chest pain Plan of Treatment: Follow up with cardiology as needed Assessment: See discharge summary
--- NOTE | 2022-01-23 12:21 | PC.NURSE ---
1215 Pt a/o, denies chest pain. no complaints of sob. pts lungs sound clear. NSR on the heart monitor. Pt evaluated by cardiology and hospitalist this AM with RN at bedside. Pt offering no complaints. A/o and ambulatory, automobile lights assembler used to help go over DC instructions. Pt verbalized understanding. IV removed. Pt escorted out by obstetrics technician.
== END 2022-01-23 12:07 | disposition home or self-care (01) ==
LOC: HO.ED 22:19 → HO.EDOVER 22:47
PROVIDERS: Physician Assistant Medical; Student in an Organized Health Care Education/Training Program; Admitting Provider Hospitalist; Emergency Provider Internal Medicine; PCP Internal Medicine; Visit Provider Nurse Practitioner Acute Care
DX: R07.9 Chest pain, unspecified (principal); I42.8 Other cardiomyopathies; I24.9 Acute ischemic heart disease, unspecified; I25.10 Atherosclerotic heart disease of native coronary artery without angina pectoris; Q24.5 Malformation of coronary vessels; I44.0 Atrioventricular block, first degree; I49.1 Atrial premature depolarization; I11.0 Hypertensive heart disease with heart failure; I50.43 Acute on chronic combined systolic (congestive) and diastolic (congestive) heart failure; E78.5 Hyperlipidemia, unspecified; Z20.822 Contact with and (suspected) exposure to COVID-19; Z98.890 Other specified postprocedural states; Z95.810 Presence of automatic (implantable) cardiac defibrillator; Z88.8 Allergy status to other drugs, medicaments and biological substances; Z79.82 Long term (current) use of aspirin; Z79.899 Other long term (current) drug therapy
CPT/HCPCS: 36415; 71046; 80048; 80076; 83880; 84484; 85025; 87635; 93005; 96372; 96374; 96375; 99215; 99219; 99285; J1650

== ENCOUNTER → 2022-02-02 09:22 | Outpatient (REF) | payer OTHER, SELFPAY ==
--- NOTE | ~2022-02-02 | NM_ITS ---
Myocardial perfusion study Indication: Coronary artery disease to evaluate for myocardial ischemia Technique: The patient was brought in for a Lexiscan perfusion study on 02/02/2022. Patient performed low-level exercise and was injected 0.4 mg of Lexiscan intravenously. Within a minute of injection, 30 mCi of sestamibi was given intravenously. Images were obtained using the SPECT gamma camera interlaced with the gating device. Images were obtained in supine position. Resting perfusion study was performed on 02/05/2022. Patient was administered 30 mCi of sestamibi intravenously at rest. Images were then obtained in supine position. Images obtained with and without CT attenuation. Total DLP 96 mGy-cm. Images were processed with the software and compared side to side in short axis, horizontal long axis and vertical long axis views. Findings: The stress perfusion study showed non attenuated images show severely reduced uptake in the inferior wall of the LV myocardium is thinning and mildly reduced uptake in the anterior wall of the LV myocardium. There is diffuse thinning of the segments of the LV myocardium is well. There is moderately reduced uptake in the distal septum attenuation corrected images show diffuse thinning in all segments of LV myocardium with improved uptake in the inferior wall.. The gated study shows severely reduced LV systolic function with calculated LVEF of 18%. LV cavity is severely dilated size. The gated study shows severe diffuselyy reduced wall thickening and contraction of segments. Resting study shows no significant change in perfusion pattern compared to stress perfusion study. Gating at rest reveals diffusely reduced wall motion with ejection fraction at 23%. The findings are consistent with no clear reversible defect. The patchy fixed defect could represent myocardial infarction versus cardiomyopathy process. NM/NM cardiolite stress test Impression: 1. Myocardial perfusion imaging study shows no reversible ischemia 2. Gated LVEF is 18% 3. Transient ischemic dilatation present EKG nondiagnostic for ischemia
--- NOTE | 2022-02-02 09:26 | CA_ITS ---
Acquisition Time: 2022-02-02 09:42:09 Total Exercise Time: 00:02:00 Test Indications: Chest Pain Medications: ENTRESTO FUROSEMIDE ALDACTONE DIGOXIN CARVEDILOL KCL ROSUVASTATIN SERTRALINE ASA CORLANOR Protocol: LEXISCAN Max HR: 102 BPM 65% of Pred: 155 BPM Max BP: 148/088 mmHG Max Work Load: 1.0 METS Pharmacological stress test with Lexiscan injection, while sitting and kicking his legs, without anginal symptoms, with isolated PVCs, with normotensive response to injection, with nondiagnostic EKG for ischemia. Nuclear images pending. Test reviewed with Dr Hernandes. Referred By: Leticia Garrison Overread By: LETICIA GARRISON
== END ==
LOC: HO.CARD 09:22
PROVIDERS: Visit Provider Nurse Practitioner Family
DX: I25.10 Atherosclerotic heart disease of native coronary artery without angina pectoris (principal); R07.9 Chest pain, unspecified
CPT/HCPCS: 78452; 93017; A9500; J2785

== ENCOUNTER 2022-03-29 09:45 | Outpatient (REF) | payer OTHER, SELFPAY ==
[2022-03-29 10:48] LABS: Alanine Aminotransferase 29 U/L (0-40); Albumin Level 4.3 g/dL (3.5-5.0); Alkaline Phosphatase 61 U/L (39-117); Anion Gap 15 (12-20); Aspartate Amino Transferase 24 U/L (5-37); Bilirubin Total 0.7 mg/dL (0.0-1.0); Blood Urea Nitrogen 13 mg/dL (9-16); Calcium 9.1 mg/dL (8.4-10.2); Carbon Dioxide 25 mmol/L (22-29); Chloride 101 mmol/L (96-108); Estimated Glomerular Filt Rate > 60; Glucose Random 147 mg/dL (60-115); Potassium 4.5 mmol/L (3.3-5.1); Sodium 136 mmol/L (135-145); Total Protein 7.4 g/dL (6.5-8.0)
[2022-03-29 10:59] LABS: Estimated Average Glucose 143 mg/dL; Hemoglobin A1c % 6.6 %
[2022-03-29 11:11] LABS: Creatinine Urine 27.92 mg/dL; Microalbum/Creatinine Ratio Ur 42.9 ug/mg cr
[2022-03-29 11:18] LABS: Digoxin 0.9 ng/mL (0.8-2.0)
== END 2022-03-29 09:46 | disposition home or self-care (01) ==
LOC: HO.LAB 09:45
PROVIDERS: PCP Internal Medicine; Visit Provider Internal Medicine
DX: E11.9 Type 2 diabetes mellitus without complications (principal); E78.2 Mixed hyperlipidemia; I43 Cardiomyopathy in diseases classified elsewhere; I50.43 Acute on chronic combined systolic (congestive) and diastolic (congestive) heart failure
CPT/HCPCS: 36415; 80053; 80162; 82043; 83036

== ENCOUNTER 2022-04-07 06:17 | Emergency (ER) | payer OTHER, SELFPAY ==
[2022-04-07 06:29] VITALS: BP 146/84; PULSE 78; RESP 18; TEMP 36.3; O2SAT 97; BMI 29.9
[2022-04-07 06:40] LABS: Appearance Urine HAZY; Color Urine YELLOW; Glucose Urine UA NEG (NEG); Leukocyte Esterase Urine NEG (NEG); Nitrite Urine NEG (NEG); Specific Gravity - Urine >= 1.030 (1.005-1.025); Urine Blood NEG (NEG); Urine Ketones NEG (NEG); Urine Protein TRACE MG/DL (NEG-TRACE)
[2022-04-07 06:45] LABS: Hemoglobin 14.4 g/dl (14.0-18.0); Mean Corpuscular HGB Conc 34.3 g/dl (31.0-36.0); Mean Corpuscular Volume 90.5 fL (80.0-98.0); Mean Platelet Volume 11.1 fL (9.4-12.4); Platelet Count 182 X10*3/uL (160-400); Red Blood Count 4.64 X10*6/uL (4.60-5.80); Red Cell Distribution Width 12.2 % (11.0-16.0); White Blood Count 9.8 X10*3/uL (4.8-10.8)
[2022-04-07 07:02] LABS: Alanine Aminotransferase 19 U/L (0-40); Albumin Level 4.2 g/dL (3.5-5.0); Alkaline Phosphatase 61 U/L (39-117); Anion Gap 11 (12-20); Aspartate Amino Transferase 17 U/L (5-37); Bilirubin Total 0.5 mg/dL (0.0-1.0); Blood Urea Nitrogen 12 mg/dL (9-16); Calcium 8.9 mg/dL (8.4-10.2); Carbon Dioxide 25 mmol/L (22-29); Chloride 104 mmol/L (96-108); Creatinine Clr Calc Pharmacy 92.5; Estimated Glomerular Filt Rate > 60; Glucose Random 138 mg/dL (60-115); Mucus Urine 1+ /LPF; Potassium 4.3 mmol/L (3.3-5.1); RBC Urine 0 /HPF (0); Sodium 136 mmol/L (135-145); Total Protein 7.1 g/dL (6.5-8.0)
--- NOTE | 2022-04-07 07:53 | ED.BACK ---
HPI - Back Pain/Injury General Chief Complaint: Back Pain/Injury Stated Complaint: left sided pain Time Seen by Provider: 04/07/22 07:52 Source: patient Mode of arrival: ambulatory Limitations: no limitations History of Present Illness HPI Narrative: 67 y/o male with history of SVT, HRpEF, HTN, who presents to the ER with 2 days of left sided low back pain. He states he woke up with the pain yesterday. It is worse with movement. Unable to get comfortable and did not sleep well last night due to the pain. He denies any radiation of the pain. No known injury or trauma. No urinary symptoms. No fever, chills, N/V/D or abdominal pain. No LE weakness, numbness or tingling. MD elicited complaint: back pain Onset (ago): day(s) (2) Timing: constant Severity: moderate Similar Symptoms Previously: No Quality: aching Location: left lower back Radiation: none Exacerbating factors: movement Relieving factors: none Context: unknown Associated symptoms: denies other symptoms Treatments prior to arrival: acetaminophen Work related injury: No Related Data Home Medications Medication Instructions Recorded Confirmed aspirin 81 mg tablet,delayed 81 mg PO DAILY 08/18/20 01/23/22 release (Adult Low Dose Aspirin) ezetimibe 10 mg tablet 10 mg PO DAILY 08/18/20 01/23/22 rosuvastatin 40 mg tablet 40 mg PO BEDTIME 08/18/20 01/23/22 sertraline 50 mg tablet 50 mg PO DAILY 08/18/20 01/23/22 carvedilol 12.5 mg tablet 12.5 mg PO BID 01/23/22 01/23/22 potassium chloride 10 mEq 10 meq PO DAILY 01/23/22 01/23/22 capsule,extended release Previous Rx's Medication Instructions Recorded sacubitril 24 mg-valsartan 26 mg 1 tab PO BID 90 days #180 tabs 07/20/21 tablet (Entresto) furosemide 80 mg tablet (Lasix) 80 mg PO .COMPLEX 90 days #135 tabs 09/11/21 digoxin 250 mcg (0.25 mg) tablet 250 mcg PO DAILY #30 tabs 12/30/21 ivabradine 5 mg tablet (Corlanor) 5 mg PO BID #60 tabs 01/06/22 spironolactone 25 mg tablet 25 mg PO DAILY #30 tabs 03/29/22 (Aldactone) cyclobenzaprine 10 mg tablet 10 mg PO TID PRN muscle spasm #14 04/07/22 tabs ibuprofen 600 mg tablet 600 mg PO Q8H PRN pain #14 tabs 04/07/22 lidocaine 5 % topical patch 1 patch topical DAILY #15 ea 04/07/22 Allergies Allergy/AdvReac Type Severity Reaction Status Date / Time No Known Allergies Allergy Verified 04/07/22 06:31 Review of Systems Review of Systems: Constitutional: No Fever, No Chills Cardiovascular: No Chest Pain, No SOB Respiratory: No Cough, No Sputum, No Wheezing, No dyspnea Gastrointestinal: No Nausea, No Vomiting, No Diarrhea, No abdominal Pain Genitourinary: No Dysuria, No Urinary Frequency, No Hematuria Musculoskeletal: No joint pain, + Myalgias Skin: No Skin Lesions, No rash Neuro: No Weakness, No Numbness, No Dizziness, No Headache Heme/Lymph: No Bruising, No Lymphadenopathy PMFSH Past Medical History Medical History Acute on chronic combined systolic and diastolic CHF (congestive heart failure) CAD (coronary artery disease) Heart failure with reduced ejection fraction HLD (hyperlipidemia) Hypertension ICD (implantable cardioverter-defibrillator) in place Nonischemic cardiomyopathy Pacemaker Surgical History Hx of cardiac catheterization Family History Family History Father No problems noted. Mother No problems noted. 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: Yes ([employer]) Alcohol intake: never Patient Tobacco Use Status: Never used Tobacco Advance Directives: No Advance Directives Information Provided: Yes service: No Current occupational status: disabled Physical Exam Vital Signs: Vital Signs: Last Vital Signs Temp 97.4 F 04/07/22 06:29 Pulse 78 04/07/22 06:29 Resp 18 04/07/22 06:29 BP 146/84 H 04/07/22 06:29 Pulse Ox 97 04/07/22 06:29 O2 Del Method 04/07/22 06:29 BMI result Body Mass Index 29.9 Appearance: Alert. Oriented X3. No acute distress. HEENT: normal inspection CVS: Normal heart rate and rhythm. Pulses normal. Respiratory: No respiratory distress. Skin: Skin warm and dry. Normal skin color. Normal skin turgor. No rashes. Back: normal inspection, left lumbar area with soft tissue tenderness. no midline tenderness. negative straight leg raise test. Extremities: normal inspection x4, normal ROM. Neuro: Oriented X 3. No motor deficit. No sensory deficit. Course Course Course Narrative: 67 y/o male presents to the ER with atraumatic left lower back pain x2 days. No red flag symptoms of low back pain. No IVDA. No urinary symptoms. Clinical presentation is most consistent with muscle pain. Will treat accordingly. He has a follow up appointment with his PCP in 2 days. Stable for d/c home. MDM - Back Pain/Injury Lab Data Result diagrams: 04/07/22 06:33 04/07/22 06:33 Labs: Lab Results 04/07/22 04/07/22 04/07/22 Range/Units 06:33 06:33 06:33 WBC 9.8 (4.8-10.8) X10*3/uL RBC 4.64 (4.60-5.80) X10*6/uL Hgb 14.4 (14.0-18.0) g/dl Hct 42.0 (42.0-52.0) % MCV 90.5 (80.0-98.0) fL MCH 31.0 (27.0-33.0) pg MCHC 34.3 (31.0-36.0) g/dl RDW 12.2 (11.0-16.0) % Plt Count 182 (160-400) X10*3/uL MPV 11.1 (9.4-12.4) fL Absolute Nucleated RBC 0.000 (0.0-0.012) X10*3/uL Nucleated RBC % (auto) 0.0 (0.0-0.2) /100WBC Sodium 136 (135-145) mmol/L Potassium 4.3 (3.3-5.1) mmol/L Chloride 104 (96-108) mmol/L Carbon Dioxide 25 (22-29) mmol/L Anion Gap 11 L (12-20) BUN 12 (9-16) mg/dL Creatinine 0.80 (0.5-1.4) mg/dL Estim Creat Clear Calc 92.5 Estimated GFR > 60 Random Glucose 138 H (60-115) mg/dL Calcium 8.9 (8.4-10.2) mg/dL Total Bilirubin 0.5 (0.0-1.0) mg/dL AST 17 (5-37) U/L ALT 19 (0-40) U/L Alkaline Phosphatase 61 (39-117) U/L Total Protein 7.1 (6.5-8.0) g/dL Albumin 4.2 (3.5-5.0) g/dL Urine Color YELLOW Urine Appearance HAZY Urine pH 6.0 (5.0-8.0) Ur Specific [place] >= 1.030 H (1.005-1.025) Urine Protein TRACE (NEG-TRACE) MG/DL Urine Glucose (UA) NEG (NEG) MG/DL Urine Ketones NEG (NEG) MG/DL Urine Blood NEG (NEG) Urine Nitrite NEG (NEG) Ur Leukocyte Esterase NEG (NEG) Urine RBC 0 (0) /HPF Urine WBC 1-4 (0-4) /HPF Ur Squamous Epith Cells NONE /LPF Urine Bacteria NONE /LPF Urine Mucus 1+ /LPF Critical Care Time Critical Care Time Critical Care Time: No Discharge Plan Discharge Clinical Impression: Acute left-sided back pain Patient Disposition: Home, Self-Care Instructions: Low Back Strain (ED), Lower Back Exercises (ED) Additional Instructions: No bending, lifting or twisting. Use ice several times per day for 20 minutes at a time for the next 48 hours and then change to heat. Take medications as prescribed to help with pain and discomfort. Follow up with your Primary Care Doctor this week. If your pain worsens, if you develop new numbness, tingling, weakness, loss of function or incontinence call 911 or come back to the ER right away for evaluation. Prescriptions: New cyclobenzaprine 10 mg tablet 10 mg PO TID PRN (Reason: muscle spasm) Qty: 14 0RF ibuprofen 600 mg tablet 600 mg PO Q8H PRN (Reason: pain) Qty: 14 0RF lidocaine 5 % adhesive patch,medicated 1 patch topical DAILY Qty: 15 0RF Rx Instructions: leave on most painful area for up to 12 hrs No Action Entresto 24-26 mg tablet 1 tab PO BID 90 Days Qty: 180 2RF furosemide [Lasix] 80 mg tablet 80 mg PO .COMPLEX 90 Days Qty: 135 1RF Rx Instructions: 80 mg PO daily and additional dose as needed for sob, weight gain of 5 lb; digoxin 250 mcg (0.25 mg) tablet 250 mcg PO DAILY Qty: 30 5RF spironolactone [Aldactone] 25 mg tablet 25 mg PO DAILY Qty: 30 5RF carvedilol 12.5 mg Tablet 12.5 mg PO BID Rx Instructions: must administer with a meal/food potassium chloride 10 mEq Capsule, Extended Release 10 meq PO DAILY rosuvastatin 40 mg tablet 40 mg PO BEDTIME sertraline 50 mg tablet 50 mg PO DAILY ezetimibe 10 mg tablet 10 mg PO DAILY aspirin [Adult Low Dose Aspirin] 81 mg tablet,delayed release (DR/EC) 81 mg PO DAILY Corlanor 5 mg tablet 5 mg PO BID Qty: 60 5RF Rx Instructions: must administer with a meal/food Print Language: Vincentian
[2022-04-07 08:27] VITALS: BP 143/77; PULSE 72; RESP 16; TEMP 36.9; O2SAT 95
== END 2022-04-07 09:15 | disposition home or self-care (01) ==
PROVIDERS: Emergency Provider Emergency Medicine
DX: M54.50 Low back pain, unspecified (principal); I11.0 Hypertensive heart disease with heart failure; I50.42 Chronic combined systolic (congestive) and diastolic (congestive) heart failure; Z95.810 Presence of automatic (implantable) cardiac defibrillator
CPT/HCPCS: 36415; 80053; 81001; 85027; 99283

== ENCOUNTER → 2022-04-21 07:48 | Outpatient (REF) | payer OTHER, SELFPAY ==
--- NOTE | 2022-04-21 07:51 | CA_ITS ---
Transthoracic Echocardiogram Patient (Last, First, Middle): Trenton Wallace, Gender: Male Date of : 1955 Age: 67 Procedure Date: 04/21/2022 Procedure Type: Transthoracic Echocardiogram Location: OP Height: 167.64 cm Weight: 86.18 kg BSA: 1.96 m2 Heart Rate: 76 bpm BP: 142 / 78 mmHg Social Contact Worker: MARY CARMEN Referring MD: Nash Anne MD Symptoms: I50.20 - Unspecified systolic (congestive) heart failure Study Quality: Adequate ECG Rhythm: Sinus Conclusions: - The left ventricular systolic function is severely decreased. The visually estimated ejection fraction is between 10-15%. - Severely increased left ventricular cavity size. - The left atrium is severely dilated. - No obvious valvular pathology seen on this study. Findings Left Ventricle Severely increased left ventricular cavity size. There is mildly increased left ventricular wall thickness. The left ventricular systolic function is severely decreased. The visually estimated ejection fraction is between 10 15%. There is severe global hypokinesis. E/E prime ratio is >15, consistent with elevated filling pressures. Evidence suggests grade II (moderate) diastolic dysfunction. LV peak GLS -7.2%. Right Ventricle Normal right ventricular cavity size. There is low normal right ventricular systolic function. Atria The left atrium is severely dilated. The right atrium is normal in size. Aortic Valve The aortic valve structure and function is likely normal. There is no aortic valve stenosis. There is no aortic valve regurgitation. Mitral Valve There is mild mitral annular calcification. There is mild mitral valve regurgitation. There is trace mitral valve stenosis. Pulmonic Valve The pulmonic valve is likely normal. Tricuspid Valve There is trace tricuspid valve regurgitation. The pulmonary artery systolic pressure is normal. Great Vessels The asc aorta is normal in size. Venous The inferior vena cava is normal in size and collapses greater than 50% with inspiration. Pericardium/Pleural There is no evidence of pericardial effusion. Prior Study Comparison No significant change compared to prior study dated: 01/08/2020. Recommendations, Care & Conclusions No obvious valvular pathology seen on this study. Measurements 2D Linear Measurements IVSd: 1.01 0.6-0.9/0.6-1.0 cm LVIDd: 7.43 3.9-5.3/4.2-5.9 cm LVIDd Index: 3.79 2.4-3.2/2.2-3.1 cm/m2 LVIDs: 6.56 2.0-3.6 cm LVPWd: 1.06 0.7-1.1 cm LA Diam: 4.70 2.7-3.8/3.0-4.0 cm LAIDs Index: 2.40 1.5-2.3 cm/m2 LV Mass: 465.09 67-162/88-224 g LV Mass Index: 237.29 43-95/49-115 g/m2 LVOT Diam: 2.30 3.0+(-)1.3 cm 2D Systolic Function EF 4C: 20.90 >55% EF 2C: 25.20 >55% EF BiP: 24.10 >55% Mitral Valve MV Pk E: 0.85 MV PK A: 0.61 MV Decel Time: 110.00 E/A: 1.40 E'Lateral: 7.94 E'Medial: 4.35 E/E' Med: 19.50 E/E' Lat: 10.70 PHT: 32.00 MVA PHT: 6.88 Decel [place]: 7.75 MR VTI: 1.70 Aortic Valve AoV Pk Aris: 1.07 AoV Mn Aris: 0.79 AoV VTI: 0.20 AoV Pk Grad: 5.00 Aov Mn Grad: 3.00 IVAN Cont.VTI: 1.83 LVOT LVOT Pk Aris: 0.50 LVOT Mn Aris: 0.36 LVOT VTI: 0.09 LVOT Pk Grad: 1.00 LVOT Mn Grad: 1.00 LVOT Diam: 2.30 LVOT Area: 4.15 Diastolic Function MV Pk E: 0.85 MV Pk A: 0.61 E/A: 1.40 E'Medial: 4.35 E/E' Med: 19.50 E' Laterial: 7.94 E/E' Lat: 10.70 Right Ventricle TAPSE (mm): 17.50 TVS' Aris: 8.80 Tricuspid Valve RA Press: 3.00 Great Vessels Aorta Sinus of Valsalva: 3.50 2.0-3.5 cm Ao Asc: 3.30 2.1-3.4 cm Pulmonary Valve PV Pk Aris: 0.81 Peak PV Grad: 3.00 Updated in Other Vendor System with Status of Final Bi Ling MD electronically signed on 04/23/2022 12:14:03 PM with status of Final
== END ==
LOC: HO.CARD 07:48
PROVIDERS: PCP Internal Medicine; Visit Provider Internal Medicine Cardiovascular Disease
DX: I50.20 Unspecified systolic (congestive) heart failure (principal)
CPT/HCPCS: 93306; 93356

== ENCOUNTER 2022-07-12 09:54 | Outpatient (REF) | payer OTHER, SELFPAY ==
[2022-07-12 12:27] LABS: Anion Gap 16 (12-20); Blood Urea Nitrogen 14 mg/dL (9-16); Calcium 9.4 mg/dL (8.4-10.2); Carbon Dioxide 28 mmol/L (22-29); Chloride 99 mmol/L (96-108); Estimated Glomerular Filt Rate > 60; Glucose Random 127 mg/dL (60-115); Potassium 4.7 mmol/L (3.3-5.1); Sodium 138 mmol/L (135-145)
[2022-07-12 12:33] LABS: B Type Natriuretic Peptide 338 pg/mL (<100)
== END 2022-07-12 09:55 | disposition home or self-care (01) ==
LOC: HO.LAB 09:54
PROVIDERS: PCP Internal Medicine; Referring Provider Internal Medicine; Visit Provider Internal Medicine Cardiovascular Disease
DX: I50.20 Unspecified systolic (congestive) heart failure (principal); I47.1 Supraventricular tachycardia; Z95.810 Presence of automatic (implantable) cardiac defibrillator
CPT/HCPCS: 36415; 80048; 83880; 99212

== ENCOUNTER 2022-08-11 09:21 | Outpatient (REF) | payer OTHER, SELFPAY ==
[2022-08-11 10:49] LABS: Alanine Aminotransferase 21 U/L (0-40); Albumin Level 4.4 g/dL (3.5-5.0); Alkaline Phosphatase 66 U/L (39-117); Anion Gap 17 (12-20); Aspartate Amino Transferase 22 U/L (5-37); Bilirubin Total 0.7 mg/dL (0.0-1.0); Blood Urea Nitrogen 13 mg/dL (9-16); Calcium 9.2 mg/dL (8.4-10.2); Carbon Dioxide 28 mmol/L (22-29); Chloride 98 mmol/L (96-108); Estimated Glomerular Filt Rate > 60; Glucose Random 140 mg/dL (60-115); Potassium 4.7 mmol/L (3.3-5.1); Sodium 138 mmol/L (135-145); Total Protein 7.5 g/dL (6.5-8.0)
[2022-08-11 10:52] LABS: Estimated Average Glucose 137 mg/dL; Hemoglobin A1c % 6.4 %
== END 2022-08-11 09:22 | disposition home or self-care (01) ==
LOC: HO.LAB 09:21
PROVIDERS: PCP Internal Medicine; Visit Provider Internal Medicine
DX: E11.9 Type 2 diabetes mellitus without complications (principal); I50.43 Acute on chronic combined systolic (congestive) and diastolic (congestive) heart failure; M54.50 Low back pain, unspecified; Z95.0 Presence of cardiac pacemaker
CPT/HCPCS: 36415; 80053; 83036

== ENCOUNTER 2022-10-26 13:34 | Emergency (ER) | payer OTHER, SELFPAY ==
--- NOTE | ~2022-10-26 | XR_ITS ---
EXAMINATION: XR CHEST CLINICAL INFORMATION: Chest pain COMPARISON: Chest x-ray 01/22/2022 TECHNIQUE: Frontal view of the chest was obtained. 2:54 PM FINDINGS: Pacemaker lead in right ventricle. Heart size is normal. No pulmonary vascular congestion. Lungs are normally aerated. There is no pleural effusion or pneumothorax. Compared to prior chest x-ray there is no substantial change. XR/XR chest 1V IMPRESSION: No acute abnormality of chest.
--- NOTE | 2022-10-26 14:07 | ED.CHESTPAIN ---
HPI - Chest Pain General Chief Complaint: Chest Pain <SAVANNA Ascencio - Last Filed: 10/26/22 14:12> Stated Complaint: Chest pain <SAVANNA Ascencio - Last Filed: 10/26/22 14:12> Time Seen by Provider: 10/26/22 18:43 <SAVANNA Ascencio - Last Filed: 10/26/22 14:12> Source: patient <Nakul Cedillo MD - Last Filed: 10/27/22 01:40> Mode of arrival: ambulatory <Nakul Cedillo MD - Last Filed: 10/27/22 01:40> Limitations: no limitations <Nakul Cedillo MD - Last Filed: 10/27/22 01:40> History of Present Illness HPI narrative: Patient 67 years old with history of acute on chronic combined systolic and diastolic congestive heart failure LV ejection fraction of 10-15%, hypertension hyperlipidemia AICD, pacemaker nonischemic cardiomyopathy comes have a midsternal chest pain off and on last couple of days with exertional shortness of breath patient had labs and cardiogram done prior to my evaluation which showed BNP of 332 which is her baseline and high sensitive troponin 14.7 which is also her baseline EKG without any ischemic changes <Nakul Cedillo MD - Last Filed: 10/27/22 01:40> Related Data Home Medications: Home Medications Medication Instructions Recorded Confirmed aspirin 81 mg tablet,delayed 81 mg PO DAILY 08/18/20 07/12/22 release (Adult Low Dose Aspirin) ezetimibe 10 mg tablet 10 mg PO DAILY 08/18/20 07/12/22 rosuvastatin 40 mg tablet 40 mg PO BEDTIME 08/18/20 07/12/22 sertraline 50 mg tablet 50 mg PO DAILY 08/18/20 07/12/22 carvedilol 12.5 mg tablet 12.5 mg PO BID 01/23/22 07/12/22 potassium chloride 10 mEq 10 meq PO DAILY 01/23/22 07/12/22 capsule,extended release Previous Rx's Medication Instructions Recorded cyclobenzaprine 10 mg tablet 10 mg PO TID PRN muscle spasm #14 04/07/22 tabs ibuprofen 600 mg tablet 600 mg PO Q8H PRN pain #14 tabs 04/07/22 furosemide 80 mg tablet 80 mg PO .COMPLEX #135 tabs 06/30/22 ivabradine 5 mg tablet (Corlanor) 5 mg PO BID #60 tabs 08/03/22 digoxin 250 mcg (0.25 mg) tablet 250 mcg PO DAILY #30 tabs 08/04/22 sacubitril 24 mg-valsartan 26 mg 1 tab PO BID #180 tabs 08/16/22 tablet (Entresto) spironolactone 25 mg tablet 25 mg PO DAILY #30 tabs 10/21/22 <SAVANNA Ascencio - Last Filed: 10/26/22 14:12> Allergies/Adverse Reactions: Allergies Allergy/AdvReac Type Severity Reaction Status Date / Time No Known Allergies Allergy Verified 04/07/22 06:31 <SAVANNA Ascencio - Last Filed: 10/26/22 14:12> Review of Systems Review of Systems: Yes all other systems are reviewed and are negative <Nakul Cedillo MD - Last Filed: 10/27/22 01:40> FOR[facility]LY [facility], [facility] Past Medical History Medical History: Medical History Acute on chronic combined systolic and diastolic CHF (congestive heart failure) Anomalous coronary artery origin Atherosclerotic cardiovascular disease CAD (coronary artery disease) Heart failure with reduced ejection fraction HLD (hyperlipidemia) Hypertension ICD (implantable cardioverter-defibrillator) in place Nonischemic cardiomyopathy Pacemaker <SAVANNA Ascencio - Last Filed: 10/26/22 14:12> Surgical History: Surgical History Hx of cardiac catheterization <SAVANNA Ascencio - Last Filed: 10/26/22 14:12> Family History Family History: Family History Father No problems noted. Mother No problems noted. <SAVANNA Ascencio - Last Filed: 10/26/22 14:12> Social History Social History: 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 home services: Yes ([employer]) Alcohol intake: never Patient Tobacco Use Status: Never used Tobacco Advance Directives: No Advance Directives Information Provided: No service: No Current occupational status: disabled <SAVANNA Ascencio - Last Filed: 10/26/22 14:12> Physical Exam Vital Signs: Vital Signs: Last Vital Signs Temp 97.7 F 10/26/22 19:45 Pulse 67 10/26/22 19:45 Resp 20 10/26/22 19:45 BP 115/62 10/26/22 19:45 Pulse Ox 96 10/26/22 19:45 O2 Del Method 10/26/22 19:45 BMI result Body Mass Index 29.8 <SAVANNA Ascencio - Last Filed: 10/26/22 14:12> Vital Signs: Last Vital Signs Temp 97.7 F 10/26/22 19:45 Pulse 67 10/26/22 19:45 Resp 20 10/26/22 19:45 BP 115/62 10/26/22 19:45 Pulse Ox 96 10/26/22 19:45 O2 Del Method 10/26/22 19:45 BMI result Body Mass Index 29.8 <Nakul Cedillo MD - Last Filed: 10/27/22 01:40> Appearance: Alert. Oriented X3. No acute distress. Eyes: PERRLA, No Nystagmus ENT: Pharynx normal. Oral Mucosa moist Neck: Normal inspection. Neck supple. CVS: Normal heart rate and rhythm. Pulses normal. Respiratory: No respiratory distress. Equal air entry bilateral, no wheezing/rales/rhonchi Abdomen: Soft and nontender. Bowel sounds are present, no mass palpable, no CVA tenderness Skin: Skin warm and dry. Normal skin color. Normal skin turgor. Extremities: No lower extremity edema. No calf tenderness Neuro: Oriented X 3. No motor deficit. No sensory deficit.No cerebellar signs , cranial nerves II-XII intact <Nakul Cedillo MD - Last Filed: 10/27/22 01:40> Course Course Course Narrative: RME--67-year-old male with a past medical history of nonischemic cardiomyopathy, ICD, ACS, HTN, HLD, CHF presenting to the ED complaining of epigastric CP x couple days with assoc SOB and R foot swelling. Denies feveer, chills, cough VSS, nontoxic appearing, talking in complete sentences, No appreciable pedal edema on exam EKG, labs, CXR, COVID/influenza testing ordered <SAVANNA Ascencio - Last Filed: 10/26/22 14:12> Medical Decision Making Medical Decision Making [facility] Narrative: Patient has frequent chest pains 2 sets of cardiac enzymes negative EKG without any acute ischemic change advised to continue his medications and follow with outsole paraffiner patient denies any active chest pain in the ER likely patient has esophageal reflux <Nakul Cedillo MD - Last Filed: 10/27/22 01:40> Lab Data [facility] Lab Attestation statement: I reviewed the patient's lab results. <Nakul Cedillo MD - Last Filed: 10/27/22 01:40> Result Diagrams: : 10/26/22 14:35 10/26/22 14:35 <SAVANNA Ascencio - Last Filed: 10/26/22 14:12> Labs: Lab Results 10/26/22 10/26/22 10/26/22 Range/Units 14:34 14:35 14:35 WBC 11.0 H (4.8-10.8) X10*3/uL RBC 5.07 (4.60-5.80) X10*6/uL Hgb 16.0 (14.0-18.0) g/dl Hct 46.0 (42.0-52.0) % MCV 90.7 (80.0-98.0) fL MCH 31.6 (27.0-33.0) pg MCHC 34.8 (31.0-36.0) g/dl RDW 12.3 (11.0-16.0) % Plt Count 267 D (160-400) X10*3/uL MPV 10.8 (9.4-12.4) fL Immature Gran % (Auto) 0.4 (0.0-0.4) % Neut % (Auto) 73.5 H (45-73) % Lymph % (Auto) 16.9 L (20-40) % [place] % (Auto) 8.2 (2-11) % Eos % (Auto) 0.5 (0-4) % Baso % (Auto) 0.5 (0-2) % Lymph # (Auto) 1.9 (1.2-4.9) X10*3/uL [place] # (Auto) 0.9 (0.1-1.2) X10*3/uL Eos # (Auto) 0.1 (0.0-0.4) X10*3/uL Baso # (Auto) 0.1 (0.0-0.2) X10*3/uL Abs Immat Gran (auto) 0.04 H (0.00-0.03) X10*3/uL Absolute Neuts (auto) 8.1 (2.0-8.3) x10*3/uL Absolute Nucleated RBC 0.000 (0.0-0.012) X10*3/uL Nucleated RBC % (auto) 0.0 (0.0-0.2) /100WBC PT (10.0-13.1) SEC INR (0.9-1.1) Sodium 136 (135-145) mmol/L Potassium 4.6 (3.3-5.1) mmol/L Chloride 99 (96-108) mmol/L Carbon Dioxide 31 H (22-29) mmol/L Anion Gap 11 L (12-20) BUN 11 (9-16) mg/dL Creatinine 0.87 (0.5-1.4) mg/dL Estim Creat Clear Calc 84.8 Estimated GFR > 60 Random Glucose 131 H (60-115) mg/dL Calcium 9.5 (8.4-10.2) mg/dL Magnesium 2.2 (1.6-2.6) mg/dL Total Bilirubin 0.8 (0.0-1.0) mg/dL Direct Bilirubin 0.2 (0.0-0.5) mg/dL AST 14 (5-37) U/L ALT 12 (0-40) U/L Alkaline Phosphatase 71 (39-117) U/L Troponin I High Sens (<3.5-35.0) ng/L B-Natriuretic Peptide (<100) pg/mL Total Protein 7.2 (6.5-8.0) g/dL Albumin 4.1 (3.5-5.0) g/dL Lipase 136 H (8-78) U/L COVID-19 (ARIANA) (Negative) COVID-19 Clin Com Influenza Type A (PATT) Negative (Negative) Influenza Type B (PATT) Negative (Negative) Influenza A & B Note See Note 10/26/22 10/26/22 10/26/22 Range/Units 14:35 14:35 14:35 WBC (4.8-10.8) X10*3/uL RBC (4.60-5.80) X10*6/uL Hgb (14.0-18.0) g/dl Hct (42.0-52.0) % MCV (80.0-98.0) fL MCH (27.0-33.0) pg MCHC (31.0-36.0) g/dl RDW (11.0-16.0) % Plt Count (160-400) X10*3/uL MPV (9.4-12.4) fL Immature Gran % (Auto) (0.0-0.4) % Neut % (Auto) (45-73) % Lymph % (Auto) (20-40) % [place] % (Auto) (2-11) % Eos % (Auto) (0-4) % Baso % (Auto) (0-2) % Lymph # (Auto) (1.2-4.9) X10*3/uL [place] # (Auto) (0.1-1.2) X10*3/uL Eos # (Auto) (0.0-0.4) X10*3/uL Baso # (Auto) (0.0-0.2) X10*3/uL Abs Immat Gran (auto) (0.00-0.03) X10*3/uL Absolute Neuts (auto) (2.0-8.3) x10*3/uL Absolute Nucleated RBC (0.0-0.012) X10*3/uL Nucleated RBC % (auto) (0.0-0.2) /100WBC PT 12.2 (10.0-13.1) SEC INR 1.1 (0.9-1.1) Sodium (135-145) mmol/L Potassium (3.3-5.1) mmol/L Chloride (96-108) mmol/L Carbon Dioxide (22-29) mmol/L Anion Gap (12-20) BUN (9-16) mg/dL Creatinine (0.5-1.4) mg/dL Estim Creat Clear Calc Estimated GFR Random Glucose (60-115) mg/dL Calcium (8.4-10.2) mg/dL Magnesium (1.6-2.6) mg/dL Total Bilirubin (0.0-1.0) mg/dL Direct Bilirubin (0.0-0.5) mg/dL AST (5-37) U/L ALT (0-40) U/L Alkaline Phosphatase (39-117) U/L Troponin I High Sens 14.7 (<3.5-35.0) ng/L B-Natriuretic Peptide 332 H (<100) pg/mL Total Protein (6.5-8.0) g/dL Albumin (3.5-5.0) g/dL Lipase (8-78) U/L COVID-19 (ARIANA) (Negative) COVID-19 Clin Com Influenza Type A (PATT) (Negative) Influenza Type B (PATT) (Negative) Influenza A & B Note 10/26/22 10/26/22 Range/Units 14:35 19:05 WBC (4.8-10.8) X10*3/uL RBC (4.60-5.80) X10*6/uL Hgb (14.0-18.0) g/dl Hct (42.0-52.0) % MCV (80.0-98.0) fL MCH (27.0-33.0) pg MCHC (31.0-36.0) g/dl RDW (11.0-16.0) % Plt Count (160-400) X10*3/uL MPV (9.4-12.4) fL Immature Gran % (Auto) (0.0-0.4) % Neut % (Auto) (45-73) % Lymph % (Auto) (20-40) % [place] % (Auto) (2-11) % Eos % (Auto) (0-4) % Baso % (Auto) (0-2) % Lymph # (Auto) (1.2-4.9) X10*3/uL [place] # (Auto) (0.1-1.2) X10*3/uL Eos # (Auto) (0.0-0.4) X10*3/uL Baso # (Auto) (0.0-0.2) X10*3/uL Abs Immat Gran (auto) (0.00-0.03) X10*3/uL Absolute Neuts (auto) (2.0-8.3) x10*3/uL Absolute Nucleated RBC (0.0-0.012) X10*3/uL Nucleated RBC % (auto) (0.0-0.2) /100WBC PT (10.0-13.1) SEC INR (0.9-1.1) Sodium (135-145) mmol/L Potassium (3.3-5.1) mmol/L Chloride (96-108) mmol/L Carbon Dioxide (22-29) mmol/L Anion Gap (12-20) BUN (9-16) mg/dL Creatinine (0.5-1.4) mg/dL Estim Creat Clear Calc Estimated GFR Random Glucose (60-115) mg/dL Calcium (8.4-10.2) mg/dL Magnesium (1.6-2.6) mg/dL Total Bilirubin (0.0-1.0) mg/dL Direct Bilirubin (0.0-0.5) mg/dL AST (5-37) U/L ALT (0-40) U/L Alkaline Phosphatase (39-117) U/L Troponin I High Sens 15.1 (<3.5-35.0) ng/L B-Natriuretic Peptide (<100) pg/mL Total Protein (6.5-8.0) g/dL Albumin (3.5-5.0) g/dL Lipase (8-78) U/L COVID-19 (ARIAAN) Negative (Negative) COVID-19 Clin Com See Note Influenza Type A (PATT) (Negative) Influenza Type B (PATT) (Negative) Influenza A & B Note <SAVANNA Ascencio - Last Filed: 10/26/22 14:12> Lab Results 10/26/22 10/26/22 10/26/22 Range/Units 14:34 14:35 14:35 WBC 11.0 H (4.8-10.8) X10*3/uL RBC 5.07 (4.60-5.80) X10*6/uL Hgb 16.0 (14.0-18.0) g/dl Hct 46.0 (42.0-52.0) % MCV 90.7 (80.0-98.0) fL MCH 31.6 (27.0-33.0) pg MCHC 34.8 (31.0-36.0) g/dl RDW 12.3 (11.0-16.0) % Plt Count 267 D (160-400) X10*3/uL MPV 10.8 (9.4-12.4) fL Immature Gran % (Auto) 0.4 (0.0-0.4) % Neut % (Auto) 73.5 H (45-73) % Lymph % (Auto) 16.9 L (20-40) % [place] % (Auto) 8.2 (2-11) % Eos % (Auto) 0.5 (0-4) % Baso % (Auto) 0.5 (0-2) % Lymph # (Auto) 1.9 (1.2-4.9) X10*3/uL [place] # (Auto) 0.9 (0.1-1.2) X10*3/uL Eos # (Auto) 0.1 (0.0-0.4) X10*3/uL Baso # (Auto) 0.1 (0.0-0.2) X10*3/uL Abs Immat Gran (auto) 0.04 H (0.00-0.03) X10*3/uL Absolute Neuts (auto) 8.1 (2.0-8.3) x10*3/uL Absolute Nucleated RBC 0.000 (0.0-0.012) X10*3/uL Nucleated RBC % (auto) 0.0 (0.0-0.2) /100WBC PT (10.0-13.1) SEC INR (0.9-1.1) Sodium 136 (135-145) mmol/L Potassium 4.6 (3.3-5.1) mmol/L Chloride 99 (96-108) mmol/L Carbon Dioxide 31 H (22-29) mmol/L Anion Gap 11 L (12-20) BUN 11 (9-16) mg/dL Creatinine 0.87 (0.5-1.4) mg/dL Estim Creat Clear Calc 84.8 Estimated GFR > 60 Random Glucose 131 H (60-115) mg/dL Calcium 9.5 (8.4-10.2) mg/dL Magnesium 2.2 (1.6-2.6) mg/dL Total Bilirubin 0.8 (0.0-1.0) mg/dL Direct Bilirubin 0.2 (0.0-0.5) mg/dL AST 14 (5-37) U/L ALT 12 (0-40) U/L Alkaline Phosphatase 71 (39-117) U/L Troponin I High Sens (<3.5-35.0) ng/L B-Natriuretic Peptide (<100) pg/mL Total Protein 7.2 (6.5-8.0) g/dL Albumin 4.1 (3.5-5.0) g/dL Lipase 136 H (8-78) U/L COVID-19 (ARIANA) (Negative) COVID-19 Clin Com Influenza Type A (PATT) Negative (Negative) Influenza Type B (PATT) Negative (Negative) Influenza A & B Note See Note 10/26/22 10/26/22 10/26/22 Range/Units 14:35 14:35 14:35 WBC (4.8-10.8) X10*3/uL RBC (4.60-5.80) X10*6/uL Hgb (14.0-18.0) g/dl Hct (42.0-52.0) % MCV (80.0-98.0) fL MCH (27.0-33.0) pg MCHC (31.0-36.0) g/dl RDW (11.0-16.0) % Plt Count (160-400) X10*3/uL MPV (9.4-12.4) fL Immature Gran % (Auto) (0.0-0.4) % Neut % (Auto) (45-73) % Lymph % (Auto) (20-40) % [place] % (Auto) (2-11) % Eos % (Auto) (0-4) % Baso % (Auto) (0-2) % Lymph # (Auto) (1.2-4.9) X10*3/uL [place] # (Auto) (0.1-1.2) X10*3/uL Eos # (Auto) (0.0-0.4) X10*3/uL Baso # (Auto) (0.0-0.2) X10*3/uL Abs Immat Gran (auto) (0.00-0.03) X10*3/uL Absolute Neuts (auto) (2.0-8.3) x10*3/uL Absolute Nucleated RBC (0.0-0.012) X10*3/uL Nucleated RBC % (auto) (0.0-0.2) /100WBC PT 12.2 (10.0-13.1) SEC INR 1.1 (0.9-1.1) Sodium (135-145) mmol/L Potassium (3.3-5.1) mmol/L Chloride (96-108) mmol/L Carbon Dioxide (22-29) mmol/L Anion Gap (12-20) BUN (9-16) mg/dL Creatinine (0.5-1.4) mg/dL Estim Creat Clear Calc Estimated GFR Random Glucose (60-115) mg/dL Calcium (8.4-10.2) mg/dL Magnesium (1.6-2.6) mg/dL Total Bilirubin (0.0-1.0) mg/dL Direct Bilirubin (0.0-0.5) mg/dL AST (5-37) U/L ALT (0-40) U/L Alkaline Phosphatase (39-117) U/L Troponin I High Sens 14.7 (<3.5-35.0) ng/L B-Natriuretic Peptide 332 H (<100) pg/mL Total Protein (6.5-8.0) g/dL Albumin (3.5-5.0) g/dL Lipase (8-78) U/L COVID-19 (ARIANA) (Negative) COVID-19 Clin Com Influenza Type A (PATT) (Negative) Influenza Type B (PATT) (Negative) Influenza A & B Note 10/26/22 10/26/22 Range/Units 14:35 19:05 WBC (4.8-10.8) X10*3/uL RBC (4.60-5.80) X10*6/uL Hgb (14.0-18.0) g/dl Hct (42.0-52.0) % MCV (80.0-98.0) fL MCH (27.0-33.0) pg MCHC (31.0-36.0) g/dl RDW (11.0-16.0) % Plt Count (160-400) X10*3/uL MPV (9.4-12.4) fL Immature Gran % (Auto) (0.0-0.4) % Neut % (Auto) (45-73) % Lymph % (Auto) (20-40) % [place] % (Auto) (2-11) % Eos % (Auto) (0-4) % Baso % (Auto) (0-2) % Lymph # (Auto) (1.2-4.9) X10*3/uL [place] # (Auto) (0.1-1.2) X10*3/uL Eos # (Auto) (0.0-0.4) X10*3/uL Baso # (Auto) (0.0-0.2) X10*3/uL Abs Immat Gran (auto) (0.00-0.03) X10*3/uL Absolute Neuts (auto) (2.0-8.3) x10*3/uL Absolute Nucleated RBC (0.0-0.012) X10*3/uL Nucleated RBC % (auto) (0.0-0.2) /100WBC PT (10.0-13.1) SEC INR (0.9-1.1) Sodium (135-145) mmol/L Potassium (3.3-5.1) mmol/L Chloride (96-108) mmol/L Carbon Dioxide (22-29) mmol/L Anion Gap (12-20) BUN (9-16) mg/dL Creatinine (0.5-1.4) mg/dL Estim Creat Clear Calc Estimated GFR Random Glucose (60-115) mg/dL Calcium (8.4-10.2) mg/dL Magnesium (1.6-2.6) mg/dL Total Bilirubin (0.0-1.0) mg/dL Direct Bilirubin (0.0-0.5) mg/dL AST (5-37) U/L ALT (0-40) U/L Alkaline Phosphatase (39-117) U/L Troponin I High Sens 15.1 (<3.5-35.0) ng/L B-Natriuretic Peptide (<100) pg/mL Total Protein (6.5-8.0) g/dL Albumin (3.5-5.0) g/dL Lipase (8-78) U/L COVID-19 (ARIANA) Negative (Negative) COVID-19 Clin Com See Note Influenza Type A (PATT) (Negative) Influenza Type B (PATT) (Negative) Influenza A & B Note <Nakul Cedillo MD - Last Filed: 10/27/22 01:40> Discharge Plan Discharge Clinical Impression: Chest pain <SAVANNA Ascencio - Last Filed: 10/26/22 14:12> Patient Disposition: Home, Self-Care <SAVANNA Ascencio - Last Filed: 10/26/22 14:12> Instructions: Chest Pain (ED) <SAVANNA Ascencio - Last Filed: 10/26/22 14:12> Additional Instructions: Continue your medications and follow with outsole paraffiner <SAVANNA Ascencio - Last Filed: 10/26/22 14:12> Prescriptions: No Action furosemide 80 mg tablet 80 mg PO .COMPLEX Qty: 135 2RF Rx Instructions: 80 mg orally; additional dose as needed for shortness of breath, weight gain of 5 lb; Corlanor 5 mg tablet 5 mg PO BID Qty: 60 5RF digoxin 250 mcg (0.25 mg) tablet 250 mcg PO DAILY Qty: 30 5RF Entresto 24-26 mg tablet 1 tab PO BID Qty: 180 3RF spironolactone 25 mg tablet 25 mg PO DAILY Qty: 30 5RF carvedilol 12.5 mg Tablet 12.5 mg PO BID Rx Instructions: must administer with a meal/food potassium chloride 10 mEq Capsule, Extended Release 10 meq PO DAILY cyclobenzaprine 10 mg tablet 10 mg PO TID PRN (Reason: muscle spasm) Qty: 14 0RF ibuprofen 600 mg tablet 600 mg PO Q8H PRN (Reason: pain) Qty: 14 0RF rosuvastatin 40 mg tablet 40 mg PO BEDTIME sertraline 50 mg tablet 50 mg PO DAILY ezetimibe 10 mg tablet 10 mg PO DAILY aspirin [Adult Low Dose Aspirin] 81 mg tablet,delayed release (DR/EC) 81 mg PO DAILY <SAVANNA Ascencio - Last Filed: 10/26/22 14:12> Interventions: ED Discharge Assessment Last Done: 10/26/22 20:09 <SAVANNA Ascencio - Last Filed: 10/26/22 14:12> Discharge Date/Time: 10/26/22 20:12 <SAVANNA Ascencio - Last Filed: 10/26/22 14:12>
--- NOTE | 2022-10-26 14:09 | ECG_ITS ---
Test Reason : CHEST PAIN Blood Pressure : / mmHG Vent. Rate : 063 BPM Atrial Rate : 063 BPM P-R Int : 210 ms QRS Dur : 120 ms QT Int : 402 ms P-R-T Axes : 042 -33 153 degrees QTc Int : 411 ms Sinus rhythm with 1st degree A-V block Left axis deviation Left ventricular hypertrophy with QRS widening and repolarization abnormality ( R in aVL , [place] product ) Abnormal ECG When compared with ECG of 22-JAN-2022 22:42, No significant changes seen Referred By: Elham Zacarias Electronically Signed By:HENNY SANDHU
[2022-10-26 14:10] VITALS: BP 140/75; PULSE 60; RESP 20; TEMP 36.3; O2SAT 98; BMI 29.8
[2022-10-26 14:43] LABS: MANUAL DIFF FLAG NO
[2022-10-26 14:46] LABS: Basophils Absolute Auto 0.1 X10*3/uL (0.0-0.2); Basophils Percent Auto 0.5 % (0-2); Eosinophils Absolute Auto 0.1 X10*3/uL (0.0-0.4); Eosinophils Percent Auto 0.5 % (0-4); Imm Gran Abs Auto 0.04 X10*3/uL (0.00-0.03); Imm Gran Pct Auto 0.4 % (0.0-0.4); Lymphocytes Absolute Auto 1.9 X10*3/uL (1.2-4.9); Lymphocytes Percent Auto 16.9 % (20-40); Mean Corpuscular HGB Conc 34.8 g/dl (31.0-36.0); Mean Corpuscular Hemoglobin 31.6 pg (27.0-33.0); Mean Corpuscular Volume 90.7 fL (80.0-98.0); Mean Platelet Volume 10.8 fL (9.4-12.4); Monocytes Absolute Auto 0.9 X10*3/uL (0.1-1.2); Monocytes Percent Auto 8.2 % (2-11); Neutrophils Absolute Auto 8.1 x10*3/uL (2.0-8.3); Neutrophils Percent Auto 73.5 % (45-73); Platelet Count 267 X10*3/uL (160-400); Red Blood Count 5.07 X10*6/uL (4.60-5.80); Red Cell Distribution Width 12.3 % (11.0-16.0)
[2022-10-26 14:54] LABS: INTERNATIONAL NORM RATIO 1.1 (0.9-1.1); Prothrombin Time 12.2 SEC (10.0-13.1)
[2022-10-26 15:07] LABS: Alanine Aminotransferase 12 U/L (0-40); Albumin Level 4.1 g/dL (3.5-5.0); Alkaline Phosphatase 71 U/L (39-117); Anion Gap 11 (12-20); Aspartate Amino Transferase 14 U/L (5-37); Bilirubin Direct 0.2 mg/dL (0.0-0.5); Bilirubin Total 0.8 mg/dL (0.0-1.0); Blood Urea Nitrogen 11 mg/dL (9-16); Calcium 9.5 mg/dL (8.4-10.2); Carbon Dioxide 31 mmol/L (22-29); Chloride 99 mmol/L (96-108); Creatinine Clr Calc Pharmacy 84.8; Estimated Glomerular Filt Rate > 60; Glucose Random 131 mg/dL (60-115); Lipase 136 U/L (8-78); Magnesium 2.2 mg/dL (1.6-2.6); Potassium 4.6 mmol/L (3.3-5.1); Sodium 136 mmol/L (135-145); Total Protein 7.2 g/dL (6.5-8.0)
[2022-10-26 15:09] LABS: Troponin-I High Sensitivity 14.7 ng/L (<3.5-35.0)
[2022-10-26 15:17] LABS: COVID-19 Test Negative (Negative); IDNOW Serial# 16C4AD1C
[2022-10-26 15:18] LABS: IDNOW Serial# 9DB6401D; Influenza A Negative (Negative); Influenza B2 Negative (Negative)
[2022-10-26 16:09] LABS: B Type Natriuretic Peptide 332 pg/mL (<100)
--- NOTE | 2022-10-26 18:55 | PC.NURSE ---
Patient presents to Ed with report of chest pain extensive cardiac history pacemaker left anterior chest . Pain with palpation not inspiration, no distress noted IV access obtained. Neuros intact will CTM
--- NOTE | 2022-10-26 19:09 | PC.NURSE ---
Addendum entered by Kassi Diane RN 10/26/22 19:47: pt is alert and oriented resting in bed no signs of acute distress notice, breathing equally unlabored pt denies any chest pain or sob Original Note: report received from SAMUEL Merritt
[2022-10-26 19:35] LABS: Troponin-I High Sensitivity 15.1 ng/L (<3.5-35.0)
[2022-10-26 19:45] VITALS: BP 115/62; PULSE 67; RESP 20; TEMP 36.5; O2SAT 96
== END 2022-10-26 20:12 | disposition home or self-care (01) ==
PROVIDERS: Physician Assistant; Emergency Provider Internal Medicine; PCP Internal Medicine
DX: R07.9 Chest pain, unspecified (principal); R06.02 Shortness of breath; Z20.822 Contact with and (suspected) exposure to COVID-19; I11.0 Hypertensive heart disease with heart failure; I50.43 Acute on chronic combined systolic (congestive) and diastolic (congestive) heart failure; E78.5 Hyperlipidemia, unspecified; Z95.0 Presence of cardiac pacemaker; Z79.82 Long term (current) use of aspirin; Z79.02 Long term (current) use of antithrombotics/antiplatelets; Z79.899 Other long term (current) drug therapy
CPT/HCPCS: 36415; 71045; 80048; 80076; 83690; 83735; 83880; 84484; 85025; 85610; 87502; 87635; 93005; 99283; 99284

== ENCOUNTER 2022-11-03 09:09 | Outpatient (REF) | payer OTHER, SELFPAY ==
[2022-11-03 09:31] LABS: MANUAL DIFF FLAG NO
[2022-11-03 10:22] LABS: Basophils Absolute Auto 0.1 X10*3/uL (0.0-0.2); Basophils Percent Auto 0.5 % (0-2); Eosinophils Percent Auto 0.4 % (0-4); Hemoglobin 15.8 g/dl (14.0-18.0); Imm Gran Abs Auto 0.04 X10*3/uL (0.00-0.03); Imm Gran Pct Auto 0.4 % (0.0-0.4); Lymphocytes Absolute Auto 1.9 X10*3/uL (1.2-4.9); Lymphocytes Percent Auto 18.3 % (20-40); Mean Corpuscular HGB Conc 33.6 g/dl (31.0-36.0); Mean Corpuscular Hemoglobin 31.2 pg (27.0-33.0); Mean Corpuscular Volume 92.7 fL (80.0-98.0); Monocytes Absolute Auto 0.8 X10*3/uL (0.1-1.2); Monocytes Percent Auto 7.8 % (2-11); Neutrophils Absolute Auto 7.5 x10*3/uL (2.0-8.3); Neutrophils Percent Auto 72.6 % (45-73); Platelet Count 242 X10*3/uL (160-400); Red Blood Count 5.07 X10*6/uL (4.60-5.80); White Blood Count 10.3 X10*3/uL (4.8-10.8)
[2022-11-03 10:38] LABS: Estimated Average Glucose 131 mg/dL; Hemoglobin A1c % 6.2 %
[2022-11-03 11:17] LABS: Creatinine Urine 273.58 mg/dL; Microalbum/Creatinine Ratio Ur 41.6 ug/mg cr
[2022-11-03 11:56] LABS: Alanine Aminotransferase 15 U/L (0-40); Alkaline Phosphatase 64 U/L (39-117); Anion Gap 15 (12-20); Aspartate Amino Transferase 13 U/L (5-37); Bilirubin Total 1.1 mg/dL (0.0-1.0); Blood Urea Nitrogen 11 mg/dL (9-16); Calcium 9.1 mg/dL (8.4-10.2); Carbon Dioxide 28 mmol/L (22-29); Chloride 98 mmol/L (96-108); Cholesterol 221 mg/dL; Estimated Glomerular Filt Rate > 60; Glucose Random 170 mg/dL (60-115); HDL Cholesterol 35 mg/dL; LDL Cholesterol Calculated 143 mg/dl; Potassium 4.9 mmol/L (3.3-5.1); Sodium 136 mmol/L (135-145); Total Protein 7.1 g/dL (6.5-8.0); Triglycerides 215 mg/dL
[2022-11-03 12:17] LABS: Thyroid Stimulating Hormone 0.77 uIU/mL (0.32-4.0)
== END 2022-11-03 09:10 | disposition home or self-care (01) ==
LOC: HO.LAB 09:09
PROVIDERS: PCP Internal Medicine; Visit Provider Internal Medicine
DX: E11.9 Type 2 diabetes mellitus without complications (principal); E78.00 Pure hypercholesterolemia, unspecified; I25.5 Ischemic cardiomyopathy; Z95.0 Presence of cardiac pacemaker; Z12.5 Encounter for screening for malignant neoplasm of prostate
CPT/HCPCS: 36415; 80053; 80061; 82043; 83036; 84153; 84443; 85025

== ENCOUNTER 2022-11-06 06:37 | Emergency (ER) | payer OTHER, SELFPAY ==
--- NOTE | ~2022-11-06 | XR_ITS ---
EXAMINATION: XR ELBOW, RIGHT CLINICAL INFORMATION: Pain and swelling COMPARISON: None TECHNIQUE: AP, lateral, and oblique views of the right elbow. FINDINGS: There is no visible acute fracture, dislocation or subluxation. There is mild joint effusion. No bony abnormality. XR/XR elbow RT 2V IMPRESSION: Mild joint effusion. No visible acute fracture or dislocation seen.
[2022-11-06 07:04] VITALS: BP 147/77; PULSE 83; RESP 16; TEMP 35.6; O2SAT 97; BMI 29.0
--- NOTE | 2022-11-06 07:47 | ED.EXTPRO ---
HPI - Extremity Problem General Chief complaint: Extremity Injury, Upper Stated complaint: pain in arm, swollen Time Seen by Provider: 11/06/22 07:47 Source: patient, family (Caregiver) and diplomatic interpreter Mode of arrival: ambulatory Limitations: no limitations History of Present Illness HPI Narrative: 67-year-old male came in for evaluation of right elbow pain for 3 days. Patient remember hitting his right elbow in the door frame 3 days ago but do not remember details of injury, been having right elbow pain with swelling. Related Data Home Medications Medication Instructions Recorded Confirmed aspirin 81 mg tablet,delayed 81 mg PO DAILY 08/18/20 07/12/22 release (Adult Low Dose Aspirin) ezetimibe 10 mg tablet 10 mg PO DAILY 08/18/20 07/12/22 rosuvastatin 40 mg tablet 40 mg PO BEDTIME 08/18/20 07/12/22 sertraline 50 mg tablet 50 mg PO DAILY 08/18/20 07/12/22 carvedilol 12.5 mg tablet 12.5 mg PO BID 01/23/22 07/12/22 potassium chloride 10 mEq 10 meq PO DAILY 01/23/22 07/12/22 capsule,extended release Previous Rx's Medication Instructions Recorded cyclobenzaprine 10 mg tablet 10 mg PO TID PRN muscle spasm #14 04/07/22 tabs ibuprofen 600 mg tablet 600 mg PO Q8H PRN pain #14 tabs 04/07/22 furosemide 80 mg tablet 80 mg PO .COMPLEX #135 tabs 06/30/22 ivabradine 5 mg tablet (Corlanor) 5 mg PO BID #60 tabs 08/03/22 digoxin 250 mcg (0.25 mg) tablet 250 mcg PO DAILY #30 tabs 08/04/22 sacubitril 24 mg-valsartan 26 mg 1 tab PO BID #180 tabs 08/16/22 tablet (Entresto) spironolactone 25 mg tablet 25 mg PO DAILY #30 tabs 10/21/22 Allergies Allergy/AdvReac Type Severity Reaction Status Date / Time No Known Allergies Allergy Verified 04/07/22 06:31 Review of Systems Review of Systems: All other systems are reviewed and are negative Constitutional: Reports as per HPI and Reports no additional constitutional complaints Eyes: Reports as per HPI and Reports no additional eye complaints Reports system reviewed and no additional complaints, except as documented Cardiovascular: Reports as per HPI and Reports no additional cardiovascular complaints Respiratory: Reports as per HPI and Reports no additional respiratory complaints Gastrointestinal: Reports as per HPI and Reports no additional gastrointestinal complaints Genitourinary: Reports no additional female genitourinary complaints Musculoskeletal: Reports no additional musculoskeletal complaints Skin/Breast: Reports system reviewed and no additional complaints, except as docu Psychiatric: Reports no additional psychiatric complaints Endocrine: Reports no additional endocrine complaints Hematologic/Lymphatic: Reports no additional hematologic/lymphatic complaints Allergic/Immunologic: Reports no additional allergic/immunologic complaints Reports system reviewed and no additional complaints, except as documented and Reports Abnormal speech present FOR[facility] Past Medical History Medical History Acute on chronic combined systolic and diastolic CHF (congestive heart failure) 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 Mother No problems noted. 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) Alcohol intake: current Alcohol intake frequency: 0-2 drinks per day Patient Tobacco Use Status: Never used Tobacco Smoked in Last 30 Days: No Use of substances other than those prescribed or required for medical reasons: Yes Substance Use Type: Marijuana Advance Directives: No service: No Current occupational status: disabled Physical Exam Vital Signs: Vital Signs: Last Vital Signs Temp 96.0 F L 11/06/22 07:04 Pulse 83 11/06/22 07:04 Resp 16 11/06/22 07:04 BP 147/77 H 11/06/22 07:04 Pulse Ox 97 11/06/22 07:04 O2 Del Method 11/06/22 07:04 BMI result Body Mass Index 29.0 Vital signs have been reviewed as appeared to be correct. Blood pressure normal. Heart rate normal. Respiration rate normal. Temperature normal. Oxygen saturation normal. Appearance: Alert. Oriented X3. No acute distress. Head: Normal external exam. Normocephalic. Atraumatic. No Guevara signs noted. No raccoon eyes noted Eyes: PERRLA. EOMI. Conjunctiva and sclera normal. Eyelids normal. ENT: TM's Normal. Pharynx normal. Uvula midline. Moist mucous membranes. No trismus noted. No drooling noted. No muffled voice noted. Neck: Normal inspection. Neck supple. FROM. No adenopathy. Thyroid Normal. No meningeal signs. No neck mass noted. CVS: Normal heart rate and rhythm. Heart sound normal. No murmurs noted. Pulses normal throughout. Respiratory: No respiratory distress. Painless inspiration. Breath sounds normal. No wheezes/rales/rhonchi noted. Chest nontender. No accessory muscle usage noted or decreased air movement noted. Abdomen: Soft and nontender. Bowel sounds normal in all 4 quadrants. No distention noted. No organomegaly noted. No visible injury noted. Back: No CVA tenderness. Full range of motion noted. Skin: Skin warm and dry. Normal skin color. Normal skin turgor. No rashes/lesions/lacerations noted. Extremities: Right elbow exam: Mild tenderness localized to the right elbow on the extensor surface, no step-off, mild swelling, no deformity. Neuro: Oriented X 3. Cranial nerve exam: II-XII are grossly intact No motor deficit. No sensory deficit. Reflexes normal. Course Course Course Narrative: 67-year-old male came in for evaluation of right elbow pain after a vague injury and trauma to the right elbow, x-ray showing elbow effusion with no deformity of fracture patient was given NSAIDs in the ED feels slightly better. Patient declined SOB or chest pain stable vital signs, no edema a risk to suggest DVT. Medical Decision Making Differential Diagnosis Differential Diagnoses: The differential diagnosis associated with the presentation includes (Elbow fracture, elbow dislocation, DVT, elbow effusion, arthritis.) Independent Interpretation I performed an independent interpretation of an: Plain X-Ray (Right elbow: Mild joint effusion with no yoli fracture.) Radiology Impression Discussion of test interpretation with radiology: I have reviewed the radiologist's reading. (Mild joint effusion. No visible acute fracture or dislocation seen.) Independent Historian Clinical information obtained from an independent historian. History obtained from or confirmed by: Other (Caregiver) Discharge Plan Discharge Clinical Impression: Effusion of elbow joint, right Patient Disposition: Home, Self-Care Instructions: Contusion in Adults (ED) Additional Instructions: Take [id number] Tylenol 500 mg tablet or ibuprofen 200 mg tablet every 6 hours if needed for pain. Prescriptions: No Action furosemide 80 mg tablet 80 mg PO .COMPLEX Qty: 135 2RF Rx Instructions: 80 mg orally; additional dose as needed for shortness of breath, weight gain of 5 lb; Corlanor 5 mg tablet 5 mg PO BID Qty: 60 5RF digoxin 250 mcg (0.25 mg) tablet 250 mcg PO DAILY Qty: 30 5RF Entresto 24-26 mg tablet 1 tab PO BID Qty: 180 3RF spironolactone 25 mg tablet 25 mg PO DAILY Qty: 30 5RF carvedilol 12.5 mg Tablet 12.5 mg PO BID Rx Instructions: must administer with a meal/food potassium chloride 10 mEq Capsule, Extended Release 10 meq PO DAILY cyclobenzaprine 10 mg tablet 10 mg PO TID PRN (Reason: muscle spasm) Qty: 14 0RF ibuprofen 600 mg tablet 600 mg PO Q8H PRN (Reason: pain) Qty: 14 0RF rosuvastatin 40 mg tablet 40 mg PO BEDTIME sertraline 50 mg tablet 50 mg PO DAILY ezetimibe 10 mg tablet 10 mg PO DAILY aspirin [Adult Low Dose Aspirin] 81 mg tablet,delayed release (DR/EC) 81 mg PO DAILY Referrals: Imelda Sepulveda MD [Primary Care Provider] -
[2022-11-06 09:03] VITALS: BP 148/86; PULSE 87; RESP 16; TEMP 36.9
[2022-11-06] MEDS: Ibuprofen 600 MG TABLET PO (09:03)
== END 2022-11-06 09:46 | disposition home or self-care (01) ==
PROVIDERS: Emergency Provider Emergency Medicine; PCP Internal Medicine
DX: M25.421 Effusion, right elbow (principal); M25.521 Pain in right elbow; I11.0 Hypertensive heart disease with heart failure; I50.43 Acute on chronic combined systolic (congestive) and diastolic (congestive) heart failure; E78.5 Hyperlipidemia, unspecified; F12.90 Cannabis use, unspecified, uncomplicated; Z79.02 Long term (current) use of antithrombotics/antiplatelets; Z79.899 Other long term (current) drug therapy; Z79.82 Long term (current) use of aspirin; Z95.0 Presence of cardiac pacemaker
CPT/HCPCS: 73070; 99282; 99283; 99284

== ENCOUNTER → 2023-01-06 09:33 | Outpatient (BNVA) | payer OTHER, SELFPAY | PROVIDERS: PCP Internal Medicine; Referring Provider Internal Medicine; Visit Provider Internal Medicine Cardiovascular Disease | DX: I50.20 Unspecified systolic (congestive) heart failure (principal); I47.1 Supraventricular tachycardia; Z79.899 Other long term (current) drug therapy; Z45.02 Encounter for adjustment and management of automatic implantable cardiac defibrillator | CPT/HCPCS: 99212 ==

== ENCOUNTER → 2023-01-26 10:13 | Outpatient (REF) | payer OTHER, SELFPAY ==
--- NOTE | 2023-01-26 10:15 | CA_ITS ---
Transthoracic Echo with Contrast Patient (Last, First, Middle): Trenton Wallace, Gender: Male Date of : 1955 Age: 67 Procedure Date: 01/26/2023 Procedure Type: Transthoracic Echo with Contrast Location: OP Height: 167.64 cm Weight: 81.65 kg BSA: 1.91 m2 Heart Rate: 64 bpm BP: 128 / 82 mmHg Predictive Maintenance Technician: SB Referring MD: Nash Anne MD Shipwright Apprentice: Nash Anne MD Symptoms: I50.20 - Unspecified systolic (congestive) heart failure Study Quality: Adequate ECG Rhythm: Frequent ventricular premature beats Conclusions: - 1. Severely dilated left ventricle with LVEF of 10-15% with elevated filling pressures 2. Moderately reduced RV systolic function 3. Severely dilated left atrium 4. Mild mitral regurgitation 5. Normal RV systolic pressure 6. No gross pericardial effusion Findings Procedure Information Contrast agent, definity, is being given per protocol without apparent complications. Left Ventricle Severely increased left ventricular cavity size. There is normal left ventricular wall thickness. The left ventricular systolic function is severely decreased. The visually estimated ejection fraction is between 10 15%. There is severe global hypokinesis. Spectral Doppler is indicative of an impaired relaxation filling pattern. E/E prime ratio is >15, consistent with elevated filling pressures. Peak GLS is -8.3%, markedly diminished. Right Ventricle Normal right ventricular cavity size. There is moderately decreased right ventricular systolic function. There is an ICD wire seen in the right ventricle. Atria The left atrium is severely dilated. There is no evidence of interatrial shunt. The right atrium is mildly dilated. Aortic Valve Normal aortic valve structure and function. There is no aortic valve stenosis. There is no aortic valve regurgitation. Mitral Valve There is mild anterior and posterior mitral leaflet thickening. There is mild mitral valve regurgitation. There is no mitral valve stenosis. Pulmonic Valve The pulmonic valve is likely normal. Tricuspid Valve Normal tricuspid valve structure. There is mild tricuspid valve regurgitation. The right ventricular systolic pressure is normal. The right ventricular systolic pressure is 32 mmHg. Normal right atrial pressure. There is no evidence of pulmonary hypertension. Great Vessels All visible segments of the aorta are normal in size. The pulmonary artery was not well visualized. Venous The inferior vena cava is normal in size and collapses greater than 50% with inspiration. Pericardium/Pleural There is no evidence of pericardial effusion. Prior Study Comparison No significant change compared to prior study dated: 04/21/2022. Measurements 2D Linear Measurements IVSd: 1.30 0.6-0.9/0.6-1.0 cm LVIDd: 7.39 3.9-5.3/4.2-5.9 cm LVIDd Index: 3.87 2.4-3.2/2.2-3.1 cm/m2 LVIDs: 6.85 2.0-3.6 cm LVPWd: 0.72 0.7-1.1 cm LA Diam: 4.90 2.7-3.8/3.0-4.0 cm LAIDs Index: 2.57 1.5-2.3 cm/m2 LV Mass: 446.84 67-162/88-224 g LV Mass Index: 233.95 43-95/49-115 g/m2 LVOT Diam: 2.40 3.0+(-)1.3 cm 2D Systolic Function EF 4C: 20.40 >55% EF 2C: 12.50 >55% EF BiP: 15.50 >55% Mitral Valve MV Pk E: 0.66 MV PK A: 0.51 MV Decel Time: 174.00 E/A: 1.30 E'Lateral: 3.15 E'Medial: 5.00 E/E' Med: 13.20 E/E' Lat: 21.00 PHT: 51.00 MVA PHT: 4.31 Decel Kimble: 3.80 MR VTI: 1.87 Aortic Valve AoV Pk Aris: 1.13 AoV Mn Aris: 0.86 AoV VTI: 0.22 AoV Pk Grad: 5.00 Aov Mn Grad: 3.00 IVAN Cont.VTI: 2.28 LVOT LVOT Pk Aris: 0.56 LVOT Mn Aris: 0.40 LVOT VTI: 0.11 LVOT Pk Grad: 1.00 LVOT Mn Grad: 1.00 LVOT Diam: 2.40 LVOT Area: 4.52 Diastolic Function MV Pk E: 0.66 MV Pk A: 0.51 E/A: 1.30 E'Medial: 5.00 E/E' Med: 13.20 E' Laterial: 3.15 E/E' Lat: 21.00 Right Ventricle TAPSE (mm): 10.20 TVS' Aris: 9.90 Tricuspid Valve TR Pk Aris: 2.43 TR Pk Grad: 24.00 RA Press: 8.00 RVSP: 32.00 Great Vessels Aorta Sinus of Valsalva: 3.10 2.0-3.5 cm Ao Asc: 3.40 2.1-3.4 cm Pulmonary Veins Pulm Vein S/D 1.10 Pulmonary Valve PV Pk Aris: 1.06 Peak PV Grad: 4.00 Updated in Other Vendor System with Status of Final Nash Anne MD electronically signed on 01/26/2023 3:43:08 PM with status of Final
[2023-01-26 12:40] LABS: Digoxin 0.7 ng/mL (0.8-2.0)
== END ==
LOC: HO.CARD 10:13
PROVIDERS: PCP Internal Medicine; Visit Provider Internal Medicine Cardiovascular Disease
DX: I50.20 Unspecified systolic (congestive) heart failure (principal); Z79.899 Other long term (current) drug therapy
CPT/HCPCS: 36415; 80162; 93306; 93356; Q9957

== ENCOUNTER 2023-01-31 09:26 | Outpatient (REF) | payer OTHER, SELFPAY ==
[2023-01-31 11:02] LABS: Alanine Aminotransferase 21 U/L (0-40); Albumin Level 4.4 g/dL (3.5-5.0); Alkaline Phosphatase 62 U/L (39-117); Anion Gap 13 (12-20); Aspartate Amino Transferase 18 U/L (5-37); Bilirubin Total 0.7 mg/dL (0.0-1.0); Blood Urea Nitrogen 14 mg/dL (9-16); Calcium 9.3 mg/dL (8.4-10.2); Carbon Dioxide 29 mmol/L (22-29); Chloride 102 mmol/L (96-108); Cholesterol 268 mg/dL; Estimated Glomerular Filt Rate > 60; Glucose Random 129 mg/dL (60-115); HDL Cholesterol 44 mg/dL; LDL Cholesterol Calculated 192 mg/dl; Potassium 4.3 mmol/L (3.3-5.1); Sodium 140 mmol/L (135-145); Total Protein 7.5 g/dL (6.5-8.0); Triglycerides 162 mg/dL
[2023-01-31 11:09] LABS: Estimated Average Glucose 123 mg/dL; Hemoglobin A1c % 5.9 %
== END 2023-01-31 09:27 | disposition home or self-care (01) ==
LOC: HO.LAB 09:26
PROVIDERS: PCP Internal Medicine; Visit Provider Internal Medicine
DX: Z00.00 Encounter for general adult medical examination without abnormal findings (principal); E11.9 Type 2 diabetes mellitus without complications; E78.00 Pure hypercholesterolemia, unspecified; M70.21 Olecranon bursitis, right elbow; R80.9 Proteinuria, unspecified
CPT/HCPCS: 36415; 80053; 80061; 83036

== ENCOUNTER 2023-05-02 10:48 | Emergency (ER) | payer OTHER, SELFPAY ==
[2023-05-02 12:11] VITALS: BP 104/74; PULSE 83; RESP 18; O2SAT 95; BMI 28.7
[2023-05-02 12:14] VITALS: BP 104/74; PULSE 81; RESP 18; TEMP 36.9; O2SAT 96
--- NOTE | 2023-05-02 12:17 | PC.NURSE ---
Alert and oriented. mostly amharic speak, litigation associate at bedside to help with translation. Patient report right sided chest pain that comes and goes. States weak, tired, sob. NSR on monitor, denies headache. No lower extremity edema noted. Lungs clear bilat.
--- NOTE | 2023-05-02 13:46 | ED.CHESTPAIN ---
HPI - Chest Pain General Chief Complaint: Chest Pain Stated Complaint: Chest pain/SOB Time Seen by Provider: 05/02/23 11:10 Source: patient Mode of arrival: ambulatory Limitations: no limitations History of Present Illness HPI narrative: 68-year-old male with history of heart disease with the defibrillator, heart failure presents with chest pain. Chest pains been intermittent for 3 days. It is right-sided. Does not radiate. The pain sometimes associated with exertion and improved with rest. He is asymptomatic at this time. Patient describes the pain as a sharp brief intermittent pain when it occurs. He denies any shortness of breath, nausea, vomiting. The pain does not radiate to the arms to the jaw. He denies any lower extremity edema, recent travel or recent surgeries. Related Data Home Medications Medication Instructions Recorded Confirmed aspirin 81 mg tablet,delayed 81 mg PO DAILY 08/18/20 01/06/23 release (Adult Low Dose Aspirin) ezetimibe 10 mg tablet 10 mg PO DAILY 08/18/20 01/06/23 rosuvastatin 40 mg tablet 40 mg PO BEDTIME 08/18/20 01/06/23 sertraline 50 mg tablet 50 mg PO DAILY 08/18/20 01/06/23 carvedilol 12.5 mg tablet 12.5 mg PO BID 01/23/22 01/06/23 potassium chloride 10 mEq 10 meq PO DAILY 01/23/22 01/06/23 capsule,extended release furosemide 80 mg tablet 80 mg PO DAILY 01/06/23 01/06/23 Previous Rx's Medication Instructions Recorded cyclobenzaprine 10 mg tablet 10 mg PO TID PRN muscle spasm #14 04/07/22 tabs ibuprofen 600 mg tablet 600 mg PO Q8H PRN pain #14 tabs 04/07/22 sacubitril 24 mg-valsartan 26 mg 1 tab PO BID #180 tabs 08/16/22 tablet (Entresto) empagliflozin 10 mg tablet 10 mg PO DAILY #30 tabs 01/06/23 (Jardiance) digoxin 250 mcg (0.25 mg) tablet 250 mcg PO DAILY 90 days #90 tabs 02/03/23 ivabradine 5 mg tablet (Corlanor) 5 mg PO BID #60 tabs 02/28/23 spironolactone 25 mg tablet 25 mg PO DAILY 90 days #90 tabs 04/20/23 Allergies Allergy/AdvReac Type Severity Reaction Status Date / Time No Known Allergies Allergy Verified 04/07/22 06:31 Review of Systems Review of Systems: CONSTITUTIONAL: Denies weight loss, fever and chills. HEENT: Denies changes in vision and hearing. RESPIRATORY: Denies SOB and cough. CV: Denies palpitations + CP. GI: Denies abdominal pain, nausea, vomiting and diarrhea. : Denies dysuria and urinary frequency. MSK: Denies myalgia and joint pain. SKIN: Denies rash and pruritus. NEUROLOGICAL: Denies headache and syncope. PSYCHIATRIC: Denies recent changes in mood. Denies anxiety and depression. All other ROS are negative unless in HPI PMFSH Past Medical History Medical History Acute on chronic combined systolic and diastolic CHF (congestive heart failure) 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 Mother No problems noted. 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: Yes ([employer]) Alcohol intake: current Alcohol intake frequency: holidays/special occasions only Patient Tobacco Use Status: Never used Tobacco Smoked in Last 30 Days: No Use of substances other than those prescribed or required for medical reasons: No Substance Use Type: Marijuana Advance Directives: No Advance Directives Information Provided: Yes service: No Current occupational status: disabled Physical Exam Vital Signs: Vital Signs: Last Vital Signs Temp 98.4 F 05/02/23 12:14 Pulse 68 05/02/23 14:56 Resp 18 05/02/23 14:56 BP 117/65 05/02/23 14:56 Pulse Ox 94 05/02/23 14:56 O2 Del Method Room Air 05/02/23 14:56 BMI result Body Mass Index 28.7 GEN: Well developed, no acute distress, alert, oriented HEENT: Normocephalic, atraumatic, normal external ears, nose appears normal, no oropharyngeal edema or exudates Eyes: Normal to appearance Neck: Supple, no lymphadenopathy Respiratory: Talks in complete sentences, no respiratory distress, clear to auscultation bilaterally Cardiovascular: Regular rate and rhythm, no murmurs rubs or gallops Abdomen: Soft, nontender, nondistended, no guarding, no rebound Back: No CVA tenderness Extremities: No clubbing cyanosis or edema Neurologic: No focal neurologic deficits, cranial nerves 2-12 intact, strength is 5/5 bilaterally Skin: No rash Course Course Course Narrative: 68-year-old male presents with a sharp intermittent brief chest pain sometimes associated with exertion for the past 3 days. He is asymptomatic. Imaging studies, troponin x2 are negative. Initial EKG showed significant changes but it was apparently lead placement because the repeat EKG shows normalization of the EKG. I do not believe this represents dynamic changes. This is really appears likely limb lead reversal. As patient is asymptomatic, atypical story, 2 sets of cardiac enzymes and 3 days of symptoms, patient may be discharged at this time. Reevaluation(s) Reevaluation #1: Repeat EKG demonstrates normal sinus rhythm first-degree AV block heart rate 69, PVCs. LVH. Nonspecific ST T-wave changes that could be consistent with some stable ischemia versus stable EKG. This was similar to October 26, 2022. Reevaluation #2: I communicated with the patient's disability insurance claim examiner. He recommended a repeat troponin. The repeat troponin is negative. Symptoms are most consistent with an atypical chest pain care. Patient can follow up with him as an outpatient. Patient may be discharged at this time. Time: 15:32 Medical Decision Making Medical Decision Making MDM Narrative: 68-year-old male with history of heart disease presents with intermittent chest pain for 3-4 days. It is a sharp intermittent chest pain. Examination is benign. Initial EKG does show some new changes compared to previous EKG however it appears predominantly to be lead placement possible lead reversal. I am repeating an EKG at this time. In any event, patient's symptoms sometimes are worsened by exertion. There are some typical cardiac complaints. Will order troponin. Order chest x-ray. Patient is pain-free at this time does not warrant nitroglycerin or other analgesics at this time. Once I obtained a workup, I will likely contact his disability insurance claim examiner to determine appropriate disposition for him. Differential Diagnosis Differential Diagnoses: The differential diagnosis associated with the presentation includes (Chest pain, atypical chest pain, angina, NSTEMI, STEMI, pleurisy) Chest pain Admission/Observation Consideration of admission/observation: Escalation of care including admission/observation considered Lab Data MDM Lab Attestation statement: I reviewed the patient's lab results. 05/02/23 11:34 05/02/23 11:34 Labs: Lab Results 05/02/23 05/02/23 05/02/23 Range/Units 11:34 11:34 11:34 WBC 10.7 (4.8-10.8) X10*3/uL RBC 5.16 (4.60-5.80) X10*6/uL Hgb 16.1 (14.0-18.0) g/dl Hct 46.3 (42.0-52.0) % MCV 89.7 (80.0-98.0) fL MCH 31.2 (27.0-33.0) pg MCHC 34.8 (31.0-36.0) g/dl RDW 11.8 (11.0-16.0) % Plt Count 191 (160-400) X10*3/uL MPV 11.0 (9.4-12.4) fL Immature Gran % (Auto) 0.2 (0.0-0.4) % Neut % (Auto) 76.0 H (45-73) % Lymph % (Auto) 15.1 L (20-40) % Churchill % (Auto) 8.0 (2-11) % Eos % (Auto) 0.3 (0-4) % Baso % (Auto) 0.4 (0-2) % Lymph # (Auto) 1.6 (1.2-4.9) X10*3/uL Churchill # (Auto) 0.9 (0.1-1.2) X10*3/uL Eos # (Auto) 0.0 (0.0-0.4) X10*3/uL Baso # (Auto) 0.0 (0.0-0.2) X10*3/uL Abs Immat Gran (auto) 0.02 (0.00-0.03) X10*3/uL Absolute Neuts (auto) 8.2 (2.0-8.3) x10*3/uL Absolute Nucleated RBC 0.000 (0.0-0.012) X10*3/uL Nucleated RBC % (auto) 0.0 (0.0-0.2) /100WBC PT 11.4 (10.0-13.1) SEC INR 1.0 (0.9-1.1) APTT 26.1 (26.0-36.4) SEC Sodium 138 (135-145) mmol/L Potassium 3.9 (3.3-5.1) mmol/L Chloride 103 (96-108) mmol/L Carbon Dioxide 22 (22-29) mmol/L Anion Gap 17 (12-20) BUN 16 (9-16) mg/dL Creatinine 0.82 (0.5-1.4) mg/dL Estim Creat Clear Calc TNP Estimated GFR > 60 Random Glucose 115 (60-115) mg/dL Calcium 9.2 (8.4-10.2) mg/dL Troponin I High Sens (<3.5-35.0) ng/L B-Natriuretic Peptide (<100) pg/mL 05/02/23 05/02/23 05/02/23 Range/Units 11:34 11:34 14:42 WBC (4.8-10.8) X10*3/uL RBC (4.60-5.80) X10*6/uL Hgb (14.0-18.0) g/dl Hct (42.0-52.0) % MCV (80.0-98.0) fL MCH (27.0-33.0) pg MCHC (31.0-36.0) g/dl RDW (11.0-16.0) % Plt Count (160-400) X10*3/uL MPV (9.4-12.4) fL Immature Gran % (Auto) (0.0-0.4) % Neut % (Auto) (45-73) % Lymph % (Auto) (20-40) % Churchill % (Auto) (2-11) % Eos % (Auto) (0-4) % Baso % (Auto) (0-2) % Lymph # (Auto) (1.2-4.9) X10*3/uL Churchill # (Auto) (0.1-1.2) X10*3/uL Eos # (Auto) (0.0-0.4) X10*3/uL Baso # (Auto) (0.0-0.2) X10*3/uL Abs Immat Gran (auto) (0.00-0.03) X10*3/uL Absolute Neuts (auto) (2.0-8.3) x10*3/uL Absolute Nucleated RBC (0.0-0.012) X10*3/uL Nucleated RBC % (auto) (0.0-0.2) /100WBC PT (10.0-13.1) SEC INR (0.9-1.1) APTT (26.0-36.4) SEC Sodium (135-145) mmol/L Potassium (3.3-5.1) mmol/L Chloride (96-108) mmol/L Carbon Dioxide (22-29) mmol/L Anion Gap (12-20) BUN (9-16) mg/dL Creatinine (0.5-1.4) mg/dL Estim Creat Clear Calc Estimated GFR Random Glucose (60-115) mg/dL Calcium (8.4-10.2) mg/dL Troponin I High Sens 12.5 14.7 (<3.5-35.0) ng/L B-Natriuretic Peptide 339 H (<100) pg/mL Independent Interpretation I performed an independent interpretation of an: EKG (Normal sinus rhythm heart rate 96, first-degree AV block, right bundle-branch block, significantly different compared to October 26, 2022) and Plain X-Ray (Chest: No acute cardiopulmonary disease) Interpretation: Patient may have limb reversal on EKG. Will obtain a 2nd EKG Radiology Impression Discussion of test interpretation with radiology: I have reviewed the radiologist's reading. Radiologist Impression: XR/XR chest 1V IMPRESSION: No acute cardiopulmonary findings. ? Dictated By: Mike Guthrie MD Signed By: <Electronically signed by Mike Guthrie MD in OV> 05/02/23 1218 External Record Review External record reviewed: Office record (Cardiology note, interrogation of device) Prescription Management I considered prescription management with: Pain Medication Chronic Conditions Patient?s care impacted by: Other (CHF, CAD) Discharge Plan Discharge Clinical Impression: Chest pain Patient Disposition: Home, Self-Care Instructions: Chest Pain (DC) Prescriptions: No Action Entresto 24-26 mg tablet 1 tab PO BID Qty: 180 3RF digoxin 250 mcg (0.25 mg) tablet 250 mcg PO DAILY 90 Days Qty: 90 3RF Corlanor 5 mg tablet 5 mg PO BID Qty: 60 5RF spironolactone 25 mg tablet 25 mg PO DAILY 90 Days Qty: 90 3RF carvedilol 12.5 mg Tablet 12.5 mg PO BID Rx Instructions: must administer with a meal/food potassium chloride 10 mEq Capsule, Extended Release 10 meq PO DAILY cyclobenzaprine 10 mg tablet 10 mg PO TID PRN (Reason: muscle spasm) Qty: 14 0RF ibuprofen 600 mg tablet 600 mg PO Q8H PRN (Reason: pain) Qty: 14 0RF rosuvastatin 40 mg tablet 40 mg PO BEDTIME sertraline 50 mg tablet 50 mg PO DAILY ezetimibe 10 mg tablet 10 mg PO DAILY aspirin [Adult Low Dose Aspirin] 81 mg tablet,delayed release (DR/EC) 81 mg PO DAILY furosemide 80 mg tablet 80 mg PO DAILY Jardiance 10 mg tablet 10 mg PO DAILY Qty: 30 5RF Referrals: Nash Anne MD [Physician] -
[2023-05-02 14:56] VITALS: BP 117/65; PULSE 68; RESP 18; O2SAT 94
--- NOTE | 2023-05-02 14:57 | PC.NURSE ---
Alert and oriented. Denies pain or discomfort. NSR on monitor, resting comfortably in bed
== END 2023-05-02 15:42 | disposition home or self-care (01) ==
PROVIDERS: Emergency Provider Emergency Medicine; PCP Internal Medicine
DX: R07.89 Other chest pain (principal); R06.02 Shortness of breath; Z79.899 Other long term (current) drug therapy
CPT/HCPCS: 36415; 71045; 80048; 83880; 84484; 85025; 85610; 85730; 93005; 99284

== ENCOUNTER → 2023-05-02 10:58 | Outpatient (BNV) | payer OTHER, SELFPAY | PROVIDERS: Emergency Provider Emergency Medicine; PCP Internal Medicine; Visit Provider Internal Medicine Cardiovascular Disease | DX: R07.9 Chest pain, unspecified (principal) | CPT/HCPCS: 93010 ==

== ENCOUNTER 2023-05-09 09:57 | Emergency (ER) | payer OTHER, SELFPAY ==
--- NOTE | ~2023-05-09 | XR_ITS ---
EXAMINATION: XR ABDOMEN COMPLETE CLINICAL INDICATION: Reason for Exam constipation COMPARISON: CT abdomen pelvis 06/02/2009 TECHNIQUE: AP view of the abdomen. FINDINGS: Lines or devices: Partially imaged AICD lead. Gaseous distention of the sigmoid colon which appears redundant though not frankly dilated. Mild colonic stool burden. No dilated loops of small bowel. Few nonspecific calcifications in the pelvis, possibly phleboliths in prostatic calcifications. XR/XR KUB IMPRESSION: Gaseous distention of the sigmoid colon which appears redundant though not frankly dilated. Mild colonic stool burden. No dilated loops of small bowel.
[2023-05-09 11:43] VITALS: BP 147/88; PULSE 78; RESP 16; TEMP 36.2; O2SAT 97; BMI 27.4
--- NOTE | 2023-05-09 11:50 | ED_ITS ---
HPI - General Adult General Chief complaint: Abdominal Pain Stated complaint: abd pain sweating Time Seen by Provider: 05/09/23 17:05 Source: patient Mode of arrival: ambulatory Limitations: no limitations History of Present Illness HPI narrative: Patient is a 68-year-old male presents emergency department for evaluation of constipation. Patient states he has not had a sufficient bowel movement in 5-6 days. When he is straining to use the bathroom he feels pain to his mid abdomen near the umbilicus. He reports having an umbilical hernia however it is not painful, erythematous, changing in color, firm, remains manually reducible. He denies any abdominal pain when he is not straining for a bowel movement. Denies fevers, chills, chest pain, shortness of breath, nausea, vomiting, genitourinary symptoms, flank pain Related Data Home Medications Medication Instructions Recorded Confirmed aspirin 81 mg tablet,delayed 81 mg PO DAILY 08/18/20 01/06/23 release (Adult Low Dose Aspirin) ezetimibe 10 mg tablet 10 mg PO DAILY 08/18/20 01/06/23 rosuvastatin 40 mg tablet 40 mg PO BEDTIME 08/18/20 01/06/23 sertraline 50 mg tablet 50 mg PO DAILY 08/18/20 01/06/23 carvedilol 12.5 mg tablet 12.5 mg PO BID 01/23/22 01/06/23 potassium chloride 10 mEq 10 meq PO DAILY 01/23/22 01/06/23 capsule,extended release furosemide 80 mg tablet 80 mg PO DAILY 01/06/23 01/06/23 Previous Rx's Medication Instructions Recorded cyclobenzaprine 10 mg tablet 10 mg PO TID PRN muscle spasm #14 04/07/22 tabs ibuprofen 600 mg tablet 600 mg PO Q8H PRN pain #14 tabs 04/07/22 sacubitril 24 mg-valsartan 26 mg 1 tab PO BID #180 tabs 08/16/22 tablet (Entresto) empagliflozin 10 mg tablet 10 mg PO DAILY #30 tabs 01/06/23 (Jardiance) digoxin 250 mcg (0.25 mg) tablet 250 mcg PO DAILY 90 days #90 tabs 02/03/23 ivabradine 5 mg tablet (Corlanor) 5 mg PO BID #60 tabs 02/28/23 spironolactone 25 mg tablet 25 mg PO DAILY 90 days #90 tabs 04/20/23 polyethylene glycol 3350 17 17 g PO BID #119 grams 05/09/23 gram/dose oral powder Allergies Allergy/AdvReac Type Severity Reaction Status Date / Time No Known Allergies Allergy Verified 05/09/23 11:42 Review of Systems Review of Systems: Constitutional : No Weight loss, No Fever, No Chills ENT/Mouth :? No sore throat, No Rhinorrhea Eyes: No Swelling, No Redness Cardiovascular : No Chest Pain, No SOB, No Edema Respiratory : No Cough, No Sputum, No Wheezing Gastrointestinal : No Nausea, no Vomiting, no Diarrhea, positive constipation. No abdominal pain, No Hematochezia, No Melena Genitourinary : No Dysuria, No Urinary Frequency, No Hematuria, No Urgency? Musculoskeletal : No joint pain, No Myalgias, No Joint Swelling Skin : No Skin Lesions, No rash Neuro : No Weakness, No Numbness, No Dizziness, No Headache Yes all other systems are reviewed and are negative [facility] Past Medical History Attestation statement: The following information was validated with the patient. Source: old records reviewed Medical History Acute on chronic combined systolic and diastolic CHF (congestive heart failure) 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 Mother No problems noted. 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: Yes ([employer]) Alcohol intake: current Alcohol intake frequency: holidays/special occasions on ly Patient Tobacco Use Status: Never used Tobacco Substance Use Type: Marijuana service: No Current occupational status: disabled Physical Exam ED Vital Signs: Vital Signs - 24 hr 05/09/23 11:43 Temperature 97.1 F Pulse Rate 78 Respiratory Rate 16 Blood Pressure 147/88 H Pulse Oximetry 97 Oxygen Delivery Method Room Air BMI result Body Mass Index 27.4 Appearance: Alert.?Oriented to person, place and time. No acute distress.?Normal affect. Eyes: Pupils equal, round and reactive to light.? ENT: Pharynx normal.?? Neck: Normal inspection.? Neck supple.?? CVS: Heart sounds normal. Normal heart rate and rhythm.? Pulses normal.?? Respiratory: No respiratory distress.? Lung sounds clear to auscultation bilaterally?? Abdomen: Soft and non-tender. Manually reducible umbilical hernia. Normoactive bowel sounds. No pulsatile mass.? No CVA tenderness? Skin: Skin warm and dry.? Normal skin color.? Extremities: No lower extremity edema.? Neuro: Moves all extremities spontaneously. Sensation intact bilaterally. No focal neuro deficits. Ambulates with normal steady gait. Course Course Course Narrative: This is an RME: Additional HPI, ROS, PE not included below will be deferred to primary provider. This is a [id number], hx of acute on chronic combined systolic and diastolic congestive heart failure LV ejection fraction of 10-15%, hypertension hyperlipidemia AICD, pacemaker nonischemic cardiomyopathy, presenting to the ER with complaints of epigastric/umbilical pain x 5 days with constipation. No N/V. No dysuria, +bowel sounds present. Abdomen is soft no TTP. VSS. Plan: Basic labs, KUB Reevaluation(s) Reevaluation #1: CBC reveals a mild leukocytosis 12.6, no anemia. CMP is overall unremarkable. KUB revealing gaseous distention of the sigmoid colon go not frankly dilated with mild stool burden. Abdominal examination is benign, low suspicion for bowel obstruction, diverticulitis, appendicitis. Would defer CT imaging at this time. Will trial high-fiber diet and MiraLax for constipation, patient has an appointment with his primary care provider in 3 days. We reviewed worrisome signs and symptoms that would warrant re-evaluation in the emergency department. All questions were answered. At this time he is stable for discharge. Time: 17:33 Medical Decision Making Medical Decision Making MDM Narrative: Patient is a 68-year-old male with past medical history of systolic and diastolic congestive heart failure LV ejection fraction of 10-15%, hypertension, hyperlipidemia, AICD, pacemaker, nonischemic cardiomyopathy, presented to emergency department for evaluation of constipation. At the time my examination he is over are all well appearing, nontoxic, afebrile. Abdominal examination is benign, no rigidity, no guarding, no rebound tenderness, not consistent with acute abdomen at this time. Will obtain CBC to evaluate for leukocytosis/ anemia, CMP and lipase to evaluate for abnormal electrolytes /abnormal renal function/ abnormal hepatic/biliary function, and KUB. Differential Diagnosis Differential Diagnoses: The differential diagnosis associated with the presentation includes (Appendicitis, diverticulitis, bowel obstruction, constipation) Admission/Observation Consideration of admission/observation: Escalation of care including admission/observation considered (I considered admission for abdominal pain, see course for further narrative) Lab Data MDM Lab Attestation statement: I reviewed the patient's lab results. (See course for further narrative) 05/09/23 12:27 05/09/23 12:27 Labs: Lab Results 05/09/23 05/09/23 Range/Units 12:27 12:27 WBC 12.6 H (4.8-10.8) X10*3/uL RBC 5.14 (4.60-5.80) X10*6/uL Hgb 16.2 (14.0-18.0) g/dl Hct 47.1 (42.0-52.0) % MCV 91.6 (80.0-98.0) fL MCH 31.5 (27.0-33.0) pg MCHC 34.4 (31.0-36.0) g/dl RDW 11.9 (11.0-16.0) % Plt Count 294 D (160-400) X10*3/uL MPV 10.8 (9.4-12.4) fL Immature Gran % (Auto) 0.5 H (0.0-0.4) % Neut % (Auto) 74.5 H (45-73) % Lymph % (Auto) 17.1 L (20-40) % Marin % (Auto) 7.1 (2-11) % Eos % (Auto) 0.3 (0-4) % Baso % (Auto) 0.5 (0-2) % Lymph # (Auto) 2.2 (1.2-4.9) X10*3/uL [place] # (Auto) 0.9 (0.1-1.2) X10*3/uL Eos # (Auto) 0.0 (0.0-0.4) X10*3/uL Baso # (Auto) 0.1 (0.0-0.2) X10*3/uL Abs Immat Gran (auto) 0.06 H (0.00-0.03) X10*3/uL Absolute Neuts (auto) 9.4 H (2.0-8.3) x10*3/uL Absolute Nucleated RBC 0.000 (0.0-0.012) X10*3/uL Nucleated RBC % (auto) 0.0 (0.0-0.2) /100WBC Sodium 139 (135-145) mmol/L Potassium 4.5 (3.3-5.1) mmol/L Chloride 100 (96-108) mmol/L Carbon Dioxide 26 (22-29) mmol/L Anion Gap 18 (12-20) BUN 14 (9-16) mg/dL Creatinine 0.80 (0.5-1.4) mg/dL Estim Creat Clear Calc 87.6 Estimated GFR > 60 Random Glucose 106 (60-115) mg/dL Calcium 9.8 D (8.4-10.2) mg/dL Total Bilirubin 1.2 H (0.0-1.0) mg/dL Direct Bilirubin 0.4 (0.0-0.5) mg/dL AST 20 (5-37) U/L ALT 18 (0-40) U/L Alkaline Phosphatase 67 (39-117) U/L Total Protein 7.7 (6.5-8.0) g/dL Albumin 4.1 (3.5-5.0) g/dL Independent Interpretation I performed an independent interpretation of an: Plain X-Ray (I have personally interpreted KUB and agree with radiologist impression, mild stool burden) Radiology Impression Discussion of test interpretation with radiology: I have reviewed the radiologist's reading. ( XR/XR KUB IMPRESSION: Gaseous distention of the sigmoid colon which appears redundant though not frankly dilated. Mild colonic stool burden. No dilated loops of small bowel.) Tests considered The following testing was considered but not selected: Considered CT of the abdomen and pelvis for further evaluation, see course narrative Prescription Management I considered prescription management with: Other (MiraLax) Discharge Plan Discharge Clinical Impression: Constipation Patient Disposition: Home, Self-Care Instructions: Constipation (ED), High Fiber Diet (ED) Additional Instructions: As discussed, please follow a high-fiber diet as provided in your instructions to help with constipation. I have sent a prescription to the pharmacy for MiraLax, you received a dose while you were in the emergency department today. Please begin this medication tomorrow at home as prescribed. If you develop loose stools/diarrhea then stop taking the MiraLax. Prescriptions: New polyethylene glycol 3350 17 gram/dose powder 17 g PO BID Qty: 119 0RF No Action Entresto 24-26 mg tablet 1 tab PO BID Qty: 180 3RF digoxin 250 mcg (0.25 mg) tablet 250 mcg PO DAILY 90 Days Qty: 90 3RF Corlanor 5 mg tablet 5 mg PO BID Qty: 60 5RF spironolactone 25 mg tablet 25 mg PO DAILY 90 Days Qty: 90 3RF carvedilol 12.5 mg Tablet 12.5 mg PO BID Rx Instructions: must administer with a meal/food potassium chloride 10 mEq Capsule, Extended Release 10 meq PO DAILY cyclobenzaprine 10 mg tablet 10 mg PO TID PRN (Reason: muscle spasm) Qty: 14 0RF ibuprofen 600 mg tablet 600 mg PO Q8H PRN (Reason: pain) Qty: 14 0RF rosuvastatin 40 mg tablet 40 mg PO BEDTIME sertraline 50 mg tablet 50 mg PO DAILY ezetimibe 10 mg tablet 10 mg PO DAILY aspirin [Adult Low Dose Aspirin] 81 mg tablet,delayed release (DR/EC) 81 mg PO DAILY furosemide 80 mg tablet 80 mg PO DAILY Jardiance 10 mg tablet 10 mg PO DAILY Qty: 30 5RF Referrals: Imelda Sepulveda MD [Primary Care Provider] - Print Language: German
[2023-05-09 12:32] LABS: MANUAL DIFF FLAG NO
[2023-05-09 12:46] LABS: Basophils Absolute Auto 0.1 X10*3/uL (0.0-0.2); Basophils Percent Auto 0.5 % (0-2); Eosinophils Percent Auto 0.3 % (0-4); Hematocrit 47.1 % (42.0-52.0); Hemoglobin 16.2 g/dl (14.0-18.0); Imm Gran Abs Auto 0.06 X10*3/uL (0.00-0.03); Imm Gran Pct Auto 0.5 % (0.0-0.4); Lymphocytes Absolute Auto 2.2 X10*3/uL (1.2-4.9); Lymphocytes Percent Auto 17.1 % (20-40); Mean Corpuscular HGB Conc 34.4 g/dl (31.0-36.0); Mean Corpuscular Hemoglobin 31.5 pg (27.0-33.0); Mean Corpuscular Volume 91.6 fL (80.0-98.0); Mean Platelet Volume 10.8 fL (9.4-12.4); Monocytes Absolute Auto 0.9 X10*3/uL (0.1-1.2); Monocytes Percent Auto 7.1 % (2-11); Neutrophils Absolute Auto 9.4 x10*3/uL (2.0-8.3); Neutrophils Percent Auto 74.5 % (45-73); Platelet Count 294 X10*3/uL (160-400); Red Blood Count 5.14 X10*6/uL (4.60-5.80); Red Cell Distribution Width 11.9 % (11.0-16.0); White Blood Count 12.6 X10*3/uL (4.8-10.8)
[2023-05-09 13:05] LABS: Alanine Aminotransferase 18 U/L (0-40); Albumin Level 4.1 g/dL (3.5-5.0); Alkaline Phosphatase 67 U/L (39-117); Anion Gap 18 (12-20); Aspartate Amino Transferase 20 U/L (5-37); Bilirubin Direct 0.4 mg/dL (0.0-0.5); Bilirubin Total 1.2 mg/dL (0.0-1.0); Blood Urea Nitrogen 14 mg/dL (9-16); Calcium 9.8 mg/dL (8.4-10.2); Carbon Dioxide 26 mmol/L (22-29); Chloride 100 mmol/L (96-108); Creatinine Clr Calc Pharmacy 87.6; Estimated Glomerular Filt Rate > 60; Glucose Random 106 mg/dL (60-115); Potassium 4.5 mmol/L (3.3-5.1); Sodium 139 mmol/L (135-145); Total Protein 7.7 g/dL (6.5-8.0)
[2023-05-09 17:23] VITALS: BP 132/81; PULSE 82; RESP 16; TEMP 36.6; O2SAT 95
== END 2023-05-09 18:27 | disposition home or self-care (01) ==
PROVIDERS: Physician Assistant Medical; Emergency Provider Student in an Organized Health Care Education/Training Program; PCP Internal Medicine
DX: K59.00 Constipation, unspecified (principal); I11.0 Hypertensive heart disease with heart failure; I50.43 Acute on chronic combined systolic (congestive) and diastolic (congestive) heart failure; E78.5 Hyperlipidemia, unspecified; F12.90 Cannabis use, unspecified, uncomplicated; Z79.82 Long term (current) use of aspirin; Z95.0 Presence of cardiac pacemaker; Z79.899 Other long term (current) drug therapy
CPT/HCPCS: 36415; 74018; 80048; 80076; 85025; 99283; 99284

== ENCOUNTER → 2023-05-23 23:59 | Outpatient (BNV) | payer OTHER, SELFPAY ==
--- NOTE | 2023-05-25 14:39 | A.OFFVIS_ITS ---
Intake Intake Visit Reasons: Remote HF Monitoring- 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 Mother No problems noted. 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) Alcohol intake: current Alcohol intake frequency: a few times a month Alcohol type: beer Patient Tobacco Use Status: Never used Tobacco Smoked in Last 30 Days: No Use of substances other than those prescribed or required for medical reasons: Yes Substance Use Type: Marijuana Substance Use Frequency: Weekly Substance Use Frequency Other:: Weekends Last Used Substance: Days (ago) Advance Directives: No Advance Directives Information Provided: Yes service: No Current occupational status: disabled Office Procedures Cardiac Device Check Cardiac Device Check Details: Remote heart failure report generated 05/23/2023. Heart failure parameters are stable [id number] Cardiac Device Interrogation, cardio physiologic monitor Procedure code (CPT) selection complete Coding Level of Care Code Procedure Only Diagnoses CPT Codes Cardiac Device Check - Cardiac Device 15: [id number] Cardiac Device In [facility], cardio physiologic monitor ([id number])
== END ==
PROVIDERS: PCP Internal Medicine; Visit Provider Internal Medicine Cardiovascular Disease
DX: I50.42 Chronic combined systolic (congestive) and diastolic (congestive) heart failure (principal)
CPT/HCPCS: 93297

== ENCOUNTER → 2023-06-13 23:59 | Outpatient (BNV) | payer OTHER, SELFPAY ==
--- NOTE | 2023-06-15 09:52 | A.OFFVIS_ITS ---
Intake Intake Visit Reasons: Remote ICD check- [facility] Allergies No Known Allergies Allergy (Verified 05/09/23 11:42) [facility] Medical History Acute on chronic combined systolic and diastolic CHF (congestive heart failure) Anomalous coronary artery origin Atherosclerotic cardiovascular disease CAD (coronary artery disease) Heart failure with reduced ejection fraction HLD (hyperlipidemia) Hypertension ICD (implantable cardioverter-defibrillator) in place Nonischemic cardiomyopathy Pacemaker Surgical History Hx of cardiac catheterization Family History Father No problems noted. Mother No problems noted. 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) Alcohol intake: current Alcohol intake frequency: a few times a month Alcohol type: beer Patient Tobacco Use Status: Never used Tobacco Smoked in Last 30 Days: No Use of substances other than those prescribed or required for medical reasons: Yes Substance Use Type: Marijuana Substance Use Frequency: Weekly Substance Use Frequency Other:: Weekends Last Used Substance: Days (ago) Advance Directives: No Advance Directives Information Provided: Yes service: No Current occupational status: disabled Office Procedures Cardiac Device Check Cardiac Device Check Details: Remote ICD report generated 06/13/2023. ICD function is adequate [id number] Cardiac Interrogation, implant defibrillator w/interim Procedure code (CPT) selection complete Coding Level of Care Code Procedure Only Diagnoses CPT Codes Cardiac Device Check - Cardiac Device 13: [id number] Cardiac Interrogation, implant defibrillator w/interim ([id number])
== END ==
PROVIDERS: PCP Internal Medicine; Visit Provider Internal Medicine Cardiovascular Disease
DX: I42.9 Cardiomyopathy, unspecified (principal); Z95.810 Presence of automatic (implantable) cardiac defibrillator
CPT/HCPCS: 93295

== ENCOUNTER → 2023-06-23 23:59 | Outpatient (BNV) | payer OTHER, SELFPAY ==
--- NOTE | 2023-06-23 11:39 | A.OFFVIS_ITS ---
Intake Intake Visit Reasons: Remote HF Monitoring- 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 Mother No problems noted. 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) Alcohol intake: current Alcohol intake frequency: a few times a month Alcohol type: beer Patient Tobacco Use Status: Never used Tobacco Smoked in Last 30 Days: No Use of substances other than those prescribed or required for medical reasons: Yes Substance Use Type: Marijuana Substance Use Frequency: Weekly Substance Use Frequency Other:: Weekends Last Used Substance: Days (ago) Advance Directives: No Advance Directives Information Provided: Yes service: No Current occupational status: disabled Office Procedures Cardiac Device Check Cardiac Device Check Details: Remote heart failure report generated 06/23/2023. Heart failure parameters are stable [id number] Cardiac Device Interrogation, cardio physiologic monitor Procedure code (CPT) selection complete Coding Level of Care Code Procedure Only Diagnoses CPT Codes Cardiac Device Check - Cardiac Device 15: [id number]-[id number] Cardiac Device In [facility], cardio physiologic monitor ([id number])
== END ==
PROVIDERS: PCP Internal Medicine; Visit Provider Internal Medicine Cardiovascular Disease
DX: I50.20 Unspecified systolic (congestive) heart failure (principal); Z95.810 Presence of automatic (implantable) cardiac defibrillator
CPT/HCPCS: 93297

== ENCOUNTER → 2023-07-29 23:59 | Outpatient (BNV) | payer OTHER, SELFPAY ==
--- NOTE | 2023-08-15 09:01 | MHC.OFFVIS ---
Intake Intake Visit Reasons: Remote HF Monitoring- 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 Mother No problems noted. 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) Alcohol intake: current Alcohol intake frequency: a few times a month Alcohol type: beer Patient Tobacco Use Status: Never used Tobacco Smoked in Last 30 Days: No Use of substances other than those prescribed or required for medical reasons: Yes Substance Use Type: Marijuana Substance Use Frequency: Weekly Substance Use Frequency Other:: Weekends Last Used Substance: Days (ago) Advance Directives: No Advance Directives Information Provided: Yes service: No Current occupational status: disabled Office Procedures Cardiac Device Check Cardiac Device Check Details: Remote heart failure report generated 07/29/2023. Heart failure parameters are stable 15050-Hzcnxd Cardiac Device Interrogation, cardio physiologic monitor Procedure code (CPT) selection complete Coding Level of Care Code Procedure Only CPT Codes Cardiac Device Check - Cardiac Device 15: [id number] Cardiac Device Interrogation, cardio physiologic monitor ([id number])
== END ==
PROVIDERS: PCP Internal Medicine; Visit Provider Internal Medicine Cardiovascular Disease
DX: I50.20 Unspecified systolic (congestive) heart failure (principal); Z95.810 Presence of automatic (implantable) cardiac defibrillator
CPT/HCPCS: 93297

== ENCOUNTER 2023-08-26 10:01 | Outpatient (AMB) | payer MEDICARE, MEDICAID, SELFPAY ==
--- NOTE | 2023-08-26 10:36 | A.OFFVIS_ITS ---
Intake Vital Signs 08/26/23 10:37 Height 5 ft 6 in Weight 162 lb 4.163 oz BMI 26.2 BP 96/62 Blood Pressure Location Lt brachial Position Sitting Pulse 72 Intake Visit Reasons: 6 mth f/up w/ [facility] device ck Intake Note: 6 month follow up Plastic Shaper Required: No Accompanied by: INSTALLER TECHNICIAN Allergies No Known Allergies Allergy (Verified 08/26/23 10:40) Medication List - Last Reconciled 08/26/23 by Nash Anne MD aspirin (Adult Low Dose Aspirin) 81 mg PO DAILY carvedilol 25 mg PO BID 90 days cyclobenzaprine 10 mg PO TID PRN digoxin 250 mcg PO DAILY 90 days empagliflozin (Jardiance) 10 mg PO DAILY ezetimibe 10 mg PO DAILY furosemide 80 mg PO DAILY ibuprofen 600 mg PO Q8H PRN ivabradine (Corlanor) 5 mg PO BID polyethylene glycol 3350 17 grams PO BID potassium chloride ER 10 mEq PO DAILY rosuvastatin 40 mg PO BEDTIME sacubitril-valsartan 24-26 mg (Entresto) 1 tab PO BID sertraline 50 mg PO DAILY spironolactone 25 mg PO DAILY 90 days HPI HPI Comments History of Present Illness Details [place] comes for follow up. He is accompanied by his daughter. Patient has been doing very well. Occasional symptoms of palpitations. Denies any lightheadedness, syncope. No progressive heart failure symptoms. Takes all his medications. Denies ICD discharge. No exertional chest pain. Taking all his medications [facility] Medical History Anomalous coronary artery origin Atherosclerotic cardiovascular disease Heart failure with reduced ejection fraction HLD (hyperlipidemia) Acute on chronic combined systolic and diastolic CHF (congestive heart failure) Nonischemic cardiomyopathy CAD (coronary artery disease) ICD (implantable cardioverter-defibrillator) in place Hypertension Pacemaker Surgical History Hx of cardiac catheterization Family History Father No problems noted. Mother No problems noted. 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) Alcohol intake: current Alcohol intake frequency: a few times a month Alcohol type: beer Patient Tobacco Use Status: Never used Tobacco Substance Use Type: Marijuana service: No Current occupational status: disabled Review of Systems Const Denies weakness ENT Denies dizziness Card Denies chest pain, Denies chest pain with activity, Denies syncope, Denies rapid heart rate, Denies pedal edema, Denies edema, Denies leg edema, Denies lightheadedness, Denies palpitations, Denies dyspnea, Denies dyspnea on exertion and Denies orthopnea Resp Denies cough, Denies dyspnea and Denies dyspnea on exertion GI Denies hematochezia and Denies change in stool character Musc Denies abnormal gait, Denies muscle cramps, Denies muscle weakness, Denies numbness, Denies radiating pain into limb and Denies tingling Neuro Denies abnormal gait, Denies dizziness, Denies syncope, Denies numbness, Denies tingling and Denies weakness Endo Denies palpitations Physical Exam Vital Signs: Last Vital Signs Pulse 72 08/26/23 10:37 BP 96/62 08/26/23 10:37 BMI result Body Mass Index 26.2 Const General: cooperative, comfortable, alert and awake Nutritional Appearance: overweight Orientation/consciousness: patient oriented x3 Limitations: no limitations Neck Neck: Yes trachea midline, Yes supple and Yes no JVD Resp Effort & Inspection: normal respiratory effort Auscultation: clear to auscultation bilaterally Cardio Jugular venous distension: no JVD Palpation: abnormal PMI displaced PMI Rate: regular rate Rhythm: regular rhythm Heart sounds: S1 normal heart sound present and S2 normal heart sound present GI Inspection: Yes obesity Auscultation: normal bowel sounds Skin General skin exam: no rashes or lesions noted Neuro General: patient oriented x3 and no focal motor deficits Extrem General: Yes no clubbing, cyanosis or edema Psych Appearance: grossly normal Office Procedures Cardiac Device Check Cardiac Device Check Details: Single-chamber [facility] ICD in place. Programmed in VVI at 40 beats per minute. Ventricular pacing thresholds adequate. Pacing and shock lead impedance is stable. Ventricular sensing is adequate. Multiple high ventricular rate episode noted which could represent SVT and/or atrial fibrillation. Battery life is adequate [id number] Cardiac Device Check, single lead implantable defibrillator Procedure code (CPT) selection complete Assessment & Plan Assessment & Plan (1) Heart failure with reduced ejection fraction: Code(s): I50.20 - Unspecified systolic (congestive) heart failure Plan: Heart failure with reduced ejection fraction secondary to nonischemic cardiomyopathy, clinically euvolemic and well compensated with good functional capacity. Currently on good medical therapy including carvedilol, Entresto, spironolactone, Jardiance. Continue current diuretic regimen. Daily weight monitoring avoidance of salt loading was noted. Continue to use additional diuretics as need be. Continue Corlanor therapy. Advised to maintain activity level as tolerated. Advised to call me with worsening in symptoms. Goals of therapy were discussed. Understands and agrees. (2) ICD (implantable cardioverter-defibrillator) in place: Code(s): Z95.810 - Presence of automatic (implantable) cardiac defibrillator Plan: ICD in place for primary prevention. Working well. Reprogrammed for adequate function. Will follow remotely for heart failure and device parameters. Follow up in the clinic in 6 months time. (3) SVT (supraventricular tachycardia): Code(s): I47.1 - Supraventricular tachycardia Plan: Recurrent fast ventricular rate unclear as to whether this is AFib, SVT, VT. Will suggest a 7 day Holter monitor for the same. Currently on dual therapy with digoxin and carvedilol therapy. Avoidance of stimulants was discussed advised to call me with worsening symptoms. Digoxin assay should be performed every 6 months. Will follow up in the clinic in 6 months time, sooner p.r.n.. Thank you for allowing me to partake in his care Medications: New furosemide 80 mg PO DAILY 40 tabs 3RF Coding Level of Care Code Est Pt Level 4 (34937) Diagnoses Heart failure with reduced ejection fraction I50.20 ICD (implantable cardioverter-defibrillator) in place Z95.810 SVT (supraventricular tachycardia) I47.1 CPT Codes Cardiac Device Check - Cardiac Device 4: 09543-WI Cardiac Device Check, single lead implantable defibrillator ([id number])
[2023-08-26 10:37] VITALS: BP 96/62; PULSE 72; BMI 26.2
== END 2023-08-26 10:54 | disposition home or self-care (01) ==
PROVIDERS: Visit Provider Internal Medicine Cardiovascular Disease
DX: I50.20 Unspecified systolic (congestive) heart failure (principal); I47.10 Supraventricular tachycardia, unspecified; Z95.810 Presence of automatic (implantable) cardiac defibrillator
CPT/HCPCS: 93282; 99214

== ENCOUNTER → 2023-08-26 10:01 | Outpatient (BNVA) | payer MEDICARE, MEDICAID, SELFPAY | PROVIDERS: Visit Provider Internal Medicine Cardiovascular Disease | DX: Z45.02 Encounter for adjustment and management of automatic implantable cardiac defibrillator (principal); I50.20 Unspecified systolic (congestive) heart failure; I47.10 Supraventricular tachycardia, unspecified | CPT/HCPCS: 99212 ==

== ENCOUNTER → 2023-08-29 23:59 | Outpatient (BNV) | payer MEDICARE, MEDICAID, SELFPAY ==
--- NOTE | 2023-08-29 12:30 | A.OFFVIS_ITS ---
Intake Intake Visit Reasons: Remote HF Monitoring- [facility] Allergies No Known Allergies Allergy (Verified 08/26/23 10:40) PFSH Medical History Anomalous coronary artery origin Atherosclerotic cardiovascular disease Heart failure with reduced ejection fraction HLD (hyperlipidemia) Acute on chronic combined systolic and diastolic CHF (congestive heart failure) Nonischemic cardiomyopathy CAD (coronary artery disease) ICD (implantable cardioverter-defibrillator) in place Hypertension Pacemaker Surgical History Hx of cardiac catheterization Family History Father No problems noted. Mother No problems noted. 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 Heart failure parameters are stable 13477-Vxidym Cardiac Device Interrogation, cardio physiologic monitor Procedure code (CPT) selection complete Coding Level of Care Code Procedure Only CPT Codes Cardiac Device Check - Cardiac Device 15: [id number]-[id number] Cardiac Device Int errogation, cardio physiologic monitor ([id number])
== END ==
PROVIDERS: PCP Internal Medicine; Visit Provider Internal Medicine Cardiovascular Disease
DX: I50.20 Unspecified systolic (congestive) heart failure (principal); Z95.810 Presence of automatic (implantable) cardiac defibrillator
CPT/HCPCS: 93297

== ENCOUNTER 2023-09-08 09:08 | Outpatient (REF) | payer MEDICARE, OTHER, SELFPAY ==
[2023-09-08 10:45] LABS: Estimated Average Glucose 117 mg/dL; Hemoglobin A1c % 5.7 % (<6.0)
[2023-09-08 11:04] LABS: Alanine Aminotransferase 20 U/L (0-40); Albumin Level 4.4 g/dL (3.5-5.0); Alkaline Phosphatase 59 U/L (39-117); Anion Gap 12 (12-20); Aspartate Amino Transferase 20 U/L (5-37); Bilirubin Total 0.7 mg/dL (0.0-1.0); Blood Urea Nitrogen 10 mg/dL (9-16); Calcium 9.5 mg/dL (8.4-10.2); Carbon Dioxide 32 mmol/L (22-29); Chloride 99 mmol/L (96-108); Cholesterol 178 mg/dL (<200); Estimated Glomerular Filt Rate > 60; Glucose Random 108 mg/dL (60-115); HDL Cholesterol 46 mg/dL (>40); LDL Cholesterol Calculated 108 mg/dL (<100); Potassium 4.3 mmol/L (3.3-5.1); Sodium 139 mmol/L (135-145); Total Protein 7.8 g/dL (6.5-8.0); Triglycerides 123 mg/dL (<150)
== END 2023-09-08 09:09 | disposition home or self-care (01) ==
LOC: HO.LAB 09:08
PROVIDERS: PCP Internal Medicine; Visit Provider Internal Medicine
DX: E11.9 Type 2 diabetes mellitus without complications (principal); E78.00 Pure hypercholesterolemia, unspecified; I25.5 Ischemic cardiomyopathy; Z95.0 Presence of cardiac pacemaker
CPT/HCPCS: 36415; 80053; 80061; 83036

== ENCOUNTER → 2023-09-12 23:59 | Outpatient (BNV) | payer MEDICARE, MEDICAID, SELFPAY ==
--- NOTE | 2023-09-12 13:38 | MHC.OFFVIS ---
Intake Intake Visit Reasons: Remote ICD Check- [facility] Allergies No Known Allergies Allergy (Verified 08/26/23 10:40) PFSH Medical History Anomalous coronary artery origin Atherosclerotic cardiovascular disease Heart failure with reduced ejection fraction HLD (hyperlipidemia) Acute on chronic combined systolic and diastolic CHF (congestive heart failure) Nonischemic cardiomyopathy CAD (coronary artery disease) ICD (implantable cardioverter-defibrillator) in place Hypertension Pacemaker Surgical History Hx of cardiac catheterization Family History Father No problems noted. Mother No problems noted. 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 ICD function is adequate. High ventricular rate episode most consistent with SVT 67539-Iwrbna Cardiac Interrogation, implant defibrillator w/interim Procedure code (CPT) selection complete Assessment & Plan Assessment & Plan (1) ICD (implantable cardioverter-defibrillator) in place: Code(s): Z95.810 - Presence of automatic (implantable) cardiac defibrillator Plan No change in plan Coding Level of Care Code Procedure Only Diagnoses ICD (implantable cardioverter-defibrillator) in place Z95.810 CPT Codes Cardiac Device Check - Cardiac Device 13: 20309-Exjtwr Cardiac Interrogation, implant defibrillator w/interim ([id number])
== END ==
PROVIDERS: PCP Internal Medicine; Visit Provider Internal Medicine Cardiovascular Disease
DX: I47.10 Supraventricular tachycardia, unspecified (principal); Z95.810 Presence of automatic (implantable) cardiac defibrillator
CPT/HCPCS: 93295

== ENCOUNTER → 2023-09-30 23:59 | Outpatient (BNV) | payer MEDICARE, SELFPAY ==
--- NOTE | 2023-10-03 11:30 | MHC.OFFVIS ---
Intake Intake Visit Reasons: Remote HF Monitoring- [facility] Allergies No Known Allergies Allergy (Verified 08/26/23 10:40) PFSH Medical History Anomalous coronary artery origin Atherosclerotic cardiovascular disease Heart failure with reduced ejection fraction HLD (hyperlipidemia) Acute on chronic combined systolic and diastolic CHF (congestive heart failure) Nonischemic cardiomyopathy CAD (coronary artery disease) ICD (implantable cardioverter-defibrillator) in place Hypertension Pacemaker Surgical History Hx of cardiac catheterization Family History Father No problems noted. Mother No problems noted. 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 Heart failure parameters are stable 64231-Penqsx Cardiac Interrogation, implant defibrillator w/interim Procedure code (CPT) selection complete Assessment & Plan Assessment & Plan (1) ICD (implantable cardioverter-defibrillator) in place: Code(s): Z95.810 - Presence of automatic (implantable) cardiac defibrillator Plan: See above Coding Level of Care Code Procedure Only Diagnoses ICD (implantable cardioverter-defibrillator) in place Z95.810 CPT Codes Cardiac Device Check - Cardiac Device 13: 72808-Cttwtq Cardiac Interrogation, implant defibrillator w/interim ([id number])
== END ==
PROVIDERS: PCP Internal Medicine; Visit Provider Internal Medicine Cardiovascular Disease
DX: I50.20 Unspecified systolic (congestive) heart failure (principal); Z95.810 Presence of automatic (implantable) cardiac defibrillator
CPT/HCPCS: 93295

== ENCOUNTER → 2023-10-07 10:23 | Outpatient (REF) | payer MEDICARE, MEDICAID, SELFPAY ==
--- NOTE | 2023-10-07 10:25 | HM_ITS ---
Cardiac event monitor Indication: Supraventricular tachycardia Technique: Patient was hooked up to cardiac event monitor on 10/07/2023 for total period of 30 days. Compliance rate was only 42%. Findings: During the monitoring time, baseline was normal sinus rhythm 95% of the time. The frequent episodes of PVCs noted with total burden of 3.5%. No prolonged episodes of ventricular tachycardia or SVT noted. No other cardiac arrhythmias noted. Rare PACs noted. Patient did not report any events. Conclusion: 1. Baseline was normal sinus rhythm with no pauses 2. Frequent isolated PVCs noted 3. No sustained ventricular or supraventricular arrhythmias noted 4. No patient reported events MTDD
== END ==
LOC: HO.CARD 10:23
PROVIDERS: PCP Internal Medicine; Visit Provider Nurse Practitioner Family
DX: I47.10 Supraventricular tachycardia, unspecified (principal)
CPT/HCPCS: 93270

== ENCOUNTER → 2023-10-07 10:25 | Outpatient (BNV) | payer MEDICARE, MEDICAID, SELFPAY | PROVIDERS: PCP Internal Medicine; Visit Provider Internal Medicine Cardiovascular Disease | DX: I49.3 Ventricular premature depolarization (principal) | CPT/HCPCS: 93272 ==

== ENCOUNTER → 2023-10-20 23:59 | Outpatient (BNV) | payer MEDICARE, MEDICAID, SELFPAY ==
--- NOTE | 2023-10-25 08:19 | MHC.OFFVIS ---
Intake Intake Visit Reasons: Remote HF Monitoring- [facility] Allergies No Known Allergies Allergy (Verified 08/26/23 10:40) PFSH Medical History Anomalous coronary artery origin Atherosclerotic cardiovascular disease Heart failure with reduced ejection fraction HLD (hyperlipidemia) Acute on chronic combined systolic and diastolic CHF (congestive heart failure) Nonischemic cardiomyopathy CAD (coronary artery disease) ICD (implantable cardioverter-defibrillator) in place Hypertension Pacemaker Surgical History Hx of cardiac catheterization Family History Father No problems noted. Mother No problems noted. 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 Heart failure parameters are stable 21359-Vfmfmm Cardiac Device Interrogation, cardio physiologic monitor Procedure code (CPT) selection complete Assessment & Plan Assessment & Plan (1) ICD (implantable cardioverter-defibrillator) in place: Code(s): Z95.810 - Presence of automatic (implantable) cardiac defibrillator Plan: See above Coding Level of Care Code Procedure Only Diagnoses ICD (implantable cardioverter-defibrillator) in place Z95.810 CPT Codes Cardiac Device Check - Cardiac Device 15: 81701-Jnmkkl Cardiac Device Interrogation, cardio physiologic monitor ([id number])
== END ==
PROVIDERS: PCP Internal Medicine; Visit Provider Internal Medicine Cardiovascular Disease
DX: I50.20 Unspecified systolic (congestive) heart failure (principal); Z95.810 Presence of automatic (implantable) cardiac defibrillator
CPT/HCPCS: 93297

== ENCOUNTER → 2023-11-21 23:59 | Outpatient (BNV) | payer OTHER, MEDICAID, SELFPAY ==
--- NOTE | 2023-11-22 12:45 | MHC.OFFVIS ---
Intake Intake Visit Reasons: Remote HF Monitoring- [facility] Allergies No Known Allergies Allergy (Verified 08/26/23 10:40) PFSH Medical History Anomalous coronary artery origin Atherosclerotic cardiovascular disease Heart failure with reduced ejection fraction HLD (hyperlipidemia) Acute on chronic combined systolic and diastolic CHF (congestive heart failure) Nonischemic cardiomyopathy CAD (coronary artery disease) ICD (implantable cardioverter-defibrillator) in place Hypertension Pacemaker Surgical History Hx of cardiac catheterization Family History Father No problems noted. Mother No problems noted. 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 Heart failure parameters are stable. 51830-[place] Cardiac Device Interrogation, cardio physiologic monitor Procedure code (CPT) selection complete Assessment & Plan Assessment & Plan (1) ICD (implantable cardioverter-defibrillator) in place: Code(s): Z95.810 - Presence of automatic (implantable) cardiac defibrillator Plan: See above Coding Level of Care Code Procedure Only Diagnoses ICD (implantable cardioverter-defibrillator) in place Z95.810 CPT Codes Cardiac Device Check - Cardiac Device 15: 70657-Cqlopk Cardiac Device Interrogation, cardio physiologic monitor ([id number])
== END ==
PROVIDERS: PCP Internal Medicine; Visit Provider Internal Medicine Cardiovascular Disease
DX: I50.20 Unspecified systolic (congestive) heart failure (principal); Z95.810 Presence of automatic (implantable) cardiac defibrillator
CPT/HCPCS: 93297

== ENCOUNTER 2023-11-28 09:34 | Outpatient (REF) | payer OTHER, SELFPAY ==
[2023-11-28 09:55] LABS: MANUAL DIFF FLAG NO
[2023-11-28 10:18] LABS: Basophils Absolute Auto 0.1 X10*3/uL (0.0-0.2); Basophils Percent Auto 0.6 % (0-2); Eosinophils Absolute Auto 0.1 X10*3/uL (0.0-0.4); Eosinophils Percent Auto 1.6 % (0-4); Hematocrit 48.1 % (42.0-52.0); Hemoglobin 16.8 g/dl (14.0-18.0); Imm Gran Abs Auto 0.03 X10*3/uL (0.00-0.03); Imm Gran Pct Auto 0.3 % (0.0-0.4); Lymphocytes Absolute Auto 1.8 X10*3/uL (1.2-4.9); Lymphocytes Percent Auto 20.6 % (20-40); Mean Corpuscular HGB Conc 34.9 g/dl (31.0-36.0); Mean Corpuscular Hemoglobin 31.2 pg (27.0-33.0); Mean Corpuscular Volume 89.4 fL (80.0-98.0); Mean Platelet Volume 11.3 fL (9.4-12.4); Monocytes Absolute Auto 0.8 X10*3/uL (0.1-1.2); Monocytes Percent Auto 8.6 % (2-11); Neutrophils Percent Auto 68.3 % (45-73); Platelet Count 253 X10*3/uL (160-400); Red Blood Count 5.38 X10*6/uL (4.60-5.80); White Blood Count 8.8 X10*3/uL (4.8-10.8)
[2023-11-28 10:40] LABS: Digoxin 1.3 ng/mL (0.8-2.0)
[2023-11-28 10:42] LABS: Alanine Aminotransferase 15 U/L (0-40); Albumin Level 4.4 g/dL (3.5-5.0); Alkaline Phosphatase 55 U/L (39-117); Anion Gap 13 (12-20); Aspartate Amino Transferase 18 U/L (5-37); Bilirubin Total 0.7 mg/dL (0.0-1.0); Blood Urea Nitrogen 13 mg/dL (9-16); Calcium 9.2 mg/dL (8.4-10.2); Carbon Dioxide 30 mmol/L (22-29); Chloride 98 mmol/L (96-108); Cholesterol 146 mg/dL (<200); Estimated Glomerular Filt Rate > 60; Glucose Random 105 mg/dL (60-115); HDL Cholesterol 40 mg/dL (>40); LDL Cholesterol Calculated 85 mg/dL (<100); Potassium 4.4 mmol/L (3.3-5.1); Sodium 137 mmol/L (135-145); Total Protein 7.9 g/dL (6.5-8.0); Triglycerides 108 mg/dL (<150)
== END 2023-11-28 09:35 | disposition home or self-care (01) ==
LOC: HO.LAB 09:34
PROVIDERS: PCP Internal Medicine; Visit Provider Internal Medicine
DX: E78.00 Pure hypercholesterolemia, unspecified (principal); I25.5 Ischemic cardiomyopathy; Z95.0 Presence of cardiac pacemaker; Z12.5 Encounter for screening for malignant neoplasm of prostate
CPT/HCPCS: 36415; 80053; 80061; 80162; 84153; 85025

== ENCOUNTER → 2023-12-12 23:59 | Outpatient (BNV) | payer OTHER, SELFPAY ==
--- NOTE | 2023-12-15 12:49 | MHC.OFFVIS ---
Intake Intake Visit Reasons: Remote ICD Check- [facility] Allergies No Known Allergies Allergy (Verified 08/26/23 10:40) PFSH Medical History Anomalous coronary artery origin Atherosclerotic cardiovascular disease Heart failure with reduced ejection fraction HLD (hyperlipidemia) Acute on chronic combined systolic and diastolic CHF (congestive heart failure) Nonischemic cardiomyopathy CAD (coronary artery disease) ICD (implantable cardioverter-defibrillator) in place Hypertension Pacemaker Surgical History Hx of cardiac catheterization Family History Father No problems noted. Mother No problems noted. 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 ICD function is adequate [id number] Cardiac Interrogation, implant defibrillator w/interim Procedure code (CPT) selection complete Assessment & Plan Assessment & Plan (1) ICD (implantable cardioverter-defibrillator) in place: Code(s): Z95.810 - Presence of automatic (implantable) cardiac defibrillator Plan: See above Coding Level of Care Code Procedure Only Diagnoses ICD (implantable cardioverter-defibrillator) in place Z95.810 CPT Codes Cardiac Device Check - Cardiac Device 13: [id number] Cardiac Interrogation, implant defibrillator w/interim ([id number])
== END ==
PROVIDERS: PCP Internal Medicine; Visit Provider Internal Medicine Cardiovascular Disease
DX: I42.9 Cardiomyopathy, unspecified (principal); Z95.810 Presence of automatic (implantable) cardiac defibrillator
CPT/HCPCS: 93295

== ENCOUNTER → 2023-12-26 23:59 | Outpatient (BNV) | payer OTHER, SELFPAY ==
--- NOTE | 2023-12-27 16:32 | A.OFFVIS_ITS ---
Intake Intake Visit Reasons: Remote HF Monitoring- [facility] Allergies No Known Allergies Allergy (Verified 08/26/23 10:40) PFSH Medical History Anomalous coronary artery origin Atherosclerotic cardiovascular disease Heart failure with reduced ejection fraction HLD (hyperlipidemia) Acute on chronic combined systolic and diastolic CHF (congestive heart failure) Nonischemic cardiomyopathy CAD (coronary artery disease) ICD (implantable cardioverter-defibrillator) in place Hypertension Pacemaker Surgical History Hx of cardiac catheterization Family History Father No problems noted. Mother No problems noted. 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 Heart failure parameters are stable [id number] Cardiac Device Interrogation, cardio physiologic monitor Procedure code (CPT) selection complete Assessment & Plan Assessment & Plan (1) ICD (implantable cardioverter-defibrillator) in place: Code(s): Z95.810 - Presence of automatic (implantable) cardiac defibrillator Plan: See above Coding Level of Care Code Procedure Only Diagnoses ICD (implantable cardioverter-defibrillator) in place Z95.810 CPT Codes Cardiac Device Check - Cardiac Device 15: [id number] Cardiac Device Interrogation, cardio physiologic monitor ([id number])
== END ==
PROVIDERS: PCP Internal Medicine; Visit Provider Internal Medicine Cardiovascular Disease
DX: I50.20 Unspecified systolic (congestive) heart failure (principal); Z95.810 Presence of automatic (implantable) cardiac defibrillator
CPT/HCPCS: 93297

== ENCOUNTER → 2024-01-27 23:59 | Outpatient (BNV) | payer OTHER, SELFPAY ==
--- NOTE | 2024-01-30 16:06 | MHC.OFFVIS ---
Intake Intake Visit Reasons: Remote HF monitoring- [facility] Allergies No Known Allergies Allergy (Verified 08/26/23 10:40) PFS Medical History Anomalous coronary artery origin Atherosclerotic cardiovascular disease Heart failure with reduced ejection fraction HLD (hyperlipidemia) Acute on chronic combined systolic and diastolic CHF (congestive heart failure) Nonischemic cardiomyopathy CAD (coronary artery disease) ICD (implantable cardioverter-defibrillator) in place Hypertension Pacemaker Surgical History Hx of cardiac catheterization Family History Father No problems noted. Mother No problems noted. 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 Heart failure parameters are stable [id number] Cardiac Device Interrogation, cardio physiologic monitor Procedure code (CPT) selection complete Assessment & Plan Assessment & Plan (1) ICD (implantable cardioverter-defibrillator) in place: Code(s): Z95.810 - Presence of automatic (implantable) cardiac defibrillator Plan: See above Coding Level of Care Code Procedure Only Diagnoses ICD (implantable cardioverter-defibrillator) in place Z95.810 CPT Codes Cardiac Device Check - Cardiac Device 15: [id number] Cardiac Device Interrogation, cardio physiologic monitor ([id number])
== END ==
PROVIDERS: PCP Internal Medicine; Visit Provider Internal Medicine Cardiovascular Disease
DX: Z45.02 Encounter for adjustment and management of automatic implantable cardiac defibrillator (principal)
CPT/HCPCS: 93297

== ENCOUNTER 2024-02-03 09:40 | Outpatient (AMB) | payer OTHER, SELFPAY ==
--- NOTE | 2024-02-03 09:53 | AM.OFFVISNUR ---
Intake Intake Visit Reasons: EKG Allergies No Known Allergies Allergy (Verified 08/26/23 10:40) Nursing Note PT is here for Nurse Visit with EKG PT has no chest pain Coding
== END 2024-02-03 10:15 | disposition home or self-care (01) ==
PROVIDERS: PCP Internal Medicine; Visit Provider Nurse Practitioner Family
DX: I44.0 Atrioventricular block, first degree (principal)
CPT/HCPCS: 93010

== ENCOUNTER → 2024-02-03 09:40 | Outpatient (BNVA) | payer OTHER, SELFPAY | PROVIDERS: PCP Internal Medicine; Visit Provider Nurse Practitioner Family | DX: I44.0 Atrioventricular block, first degree (principal); R94.31 Abnormal electrocardiogram [ECG] [EKG]; I45.4 Nonspecific intraventricular block | CPT/HCPCS: 93005 ==

== ENCOUNTER 2024-02-23 09:02 | Outpatient (AMB) | payer MEDICARE, MEDICAID, SELFPAY ==
[2024-02-23 09:37] VITALS: BP 120/80; PULSE 71; BMI 26.0
--- NOTE | 2024-02-23 09:37 | MHC.OFFVIS ---
Vital Signs 02/23/24 09:37 Height 5 ft 6 in Weight 160 lb 14.999 oz BMI 26.0 BP 120/80 Blood Pressure Location Lt brachial Position Sitting Pulse 71 Intake Visit Reasons: 6 mth fu Intake Note: 6 month follow-up with [facility] check feeling good Vacuum Pan Tender: Vacuum Pan Tender Present Accompanied by: Daughter Allergies No Known Allergies Allergy (Verified 08/26/23 10:40) Medication List - Last Reconciled 02/23/24 by Nash Anne MD aspirin (Adult Low Dose Aspirin) 81 mg PO DAILY carvedilol 25 mg PO BID 90 days cyclobenzaprine 10 mg PO TID PRN digoxin 250 mcg PO DAILY empagliflozin (Jardiance) 10 mg PO DAILY ezetimibe 10 mg PO DAILY furosemide 80 mg PO DAILY ibuprofen 600 mg PO Q8H PRN ivabradine (Corlanor) 5 mg PO BID polyethylene glycol 3350 17 grams PO BID potassium chloride ER 10 mEq PO DAILY rosuvastatin 40 mg PO BEDTIME sacubitril-valsartan 24-26 mg (Entresto) 1 tab PO BID sertraline 50 mg PO DAILY spironolactone 25 mg PO DAILY 90 days HPI Comments Details: Trenton comes for follow-up, accompanied by his daughter. He has been doing well. He said he can walk up to half a mi without having trouble then he gets short of breath. But he can continue to walk. Denies any progressive heart failure symptoms. No orthopnea, PND, leg edema, weight gain. Takes all his medications. No lightheadedness, syncope. Denies any prolonged palpitations irregular heartbeat. Denies any lightheadedness, syncope, ICD discharge. No exertional chest pain. [facility] Medical History Anomalous coronary artery origin Atherosclerotic cardiovascular disease Heart failure with reduced ejection fraction HLD (hyperlipidemia) Acute on chronic combined systolic and diastolic CHF (congestive heart failure) Nonischemic cardiomyopathy CAD (coronary artery disease) ICD (implantable cardioverter-defibrillator) in place Hypertension Pacemaker Surgical History Hx of cardiac catheterization Family History Father No problems noted. Mother No problems noted. 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) Alcohol intake: current Alcohol intake frequency: a few times a month Alcohol type: beer Patient Tobacco Use Status: Never used Tobacco Substance Use Type: Marijuana service: No Current occupational status: disabled Review of Systems Const Denies chills, Denies fatigue, Denies fever(s), Denies frequent falls, Denies weakness, Denies weight gain and Denies weight loss ENT Denies dizziness Card Denies chest pain, Denies leg edema, Denies lightheadedness, Denies palpitations, Denies dyspnea, Denies dyspnea on exertion, Denies orthopnea and Denies other (loss of consciousness) Resp Denies cough, Denies dyspnea and Denies dyspnea on exertion GI Denies hematochezia and Denies change in stool character Musc Denies abnormal gait, Denies muscle weakness, Denies numbness, Denies radiating pain into limb and Denies tingling Neuro Denies abnormal gait, Denies dizziness, Denies frequent falls, Denies numbness, Denies tingling and Denies weakness Endo Denies fatigue and Denies palpitations Physical Exam Vital Signs: Last Vital Signs Pulse 71 02/23/24 09:37 BP 120/80 02/23/24 09:37 BMI result Body Mass Index 26.0 Const General: cooperative, comfortable, alert and awake Nutritional Appearance: overweight Orientation/consciousness: patient oriented x3 Limitations: no limitations Neck Neck: Yes trachea midline, Yes supple and Yes no JVD Resp Effort & Inspection: normal respiratory effort Auscultation: clear to auscultation bilaterally Cardio Jugular venous distension: no JVD Palpation: abnormal PMI displaced PMI Rate: regular rate Rhythm: regular rhythm Heart sounds: S1 normal heart sound present and S2 normal heart sound present GI Inspection: Yes obesity Auscultation: normal bowel sounds Skin General skin exam: no rashes or lesions noted Neuro General: patient oriented x3 and no focal motor deficits Extrem General: Yes no clubbing, cyanosis or edema Psych Appearance: grossly normal Office Procedures Cardiac Device Check Cardiac Device Check Details: Single-chamber [facility] ICD in place. Programmed in VVI at 40 beats per minute. Multiple high ventricular rate episodes noted with heart rate up to 171 beats per minute, could represent SVT and/or nonsustained VT. No therapy has been delivered. Ventricular pacing thresholds are slightly elevated with adequate safety margin. Ventricular sensing is adequate. Pacing and shock lead impedance is stable. Battery life is at 2 and half years [id number] Cardiac Device Check, single lead implantable defibrillator Procedure code (CPT) selection complete Assessment & Plan Assessment & Plan (1) Heart failure with reduced ejection fraction: Code(s): I50.20 - Unspecified systolic (congestive) heart failure Category: Medical Plan: Heart failure with reduced ejection fraction with severe LV systolic dysfunction, clinically euvolemic and well compensated with NYHA class 2 symptoms. Doing well on current therapy. Continue current diuretic regimen. Daily weight monitoring avoidance of salt loading was discussed. Continue current neurohormonal modulation with Jardiance, carvedilol, Entresto as well as spironolactone therapy. Continue Corlanor therapy. Management of heart failure was discussed in details. Follow-up echocardiogram in near future. He understands management well. Encouraged to continue to maintain activity level as tolerated. (2) SVT (supraventricular tachycardia): Code(s): I47.1 - Supraventricular tachycardia Category: Medical Plan: Multiple high ventricular rate episodes are more likely suggestive SVT given the length of the arrhythmias. No therapy has been delivered for the same. Will continue monitor by pacer telemetry as well as ICD telemetry. Continue carvedilol therapy. Avoidance of stimulants was discussed. (3) ICD (implantable cardioverter-defibrillator) in place: Code(s): Z95.810 - Presence of automatic (implantable) cardiac defibrillator Category: Medical Plan: ICD in place for primary prevention. ICD is working well. Will monitor remotely for heart failure and device check. Follow up in the clinic in 6 months time. Follow up in the clinic in 6 months time, sooner p.r.n.. Thank you for allowing me to partake in his care Orders: Orders CA echo transthoracic complete Today I50.20 - Unspecified systolic (congestive) heart failure Coding Level of Care Code Est Pt Level 4 (80773) Diagnoses Heart failure with reduced ejection fraction I50.20 SVT (supraventricular tachycardia) I47.1 ICD (implantable cardioverter-defibrillator) in place Z95.810 CPT Codes Cardiac Device Check - Cardiac Device 4: [id number] Cardiac Device Check, single lead implantable defibrillator ([id number])
== END 2024-02-23 09:57 | disposition home or self-care (01) ==
PROVIDERS: PCP Internal Medicine; Referring Provider Internal Medicine; Visit Provider Internal Medicine Cardiovascular Disease
DX: I50.20 Unspecified systolic (congestive) heart failure (principal); I47.10 Supraventricular tachycardia, unspecified; Z95.810 Presence of automatic (implantable) cardiac defibrillator
CPT/HCPCS: 93282; 99214

== ENCOUNTER → 2024-02-23 09:02 | Outpatient (BNVA) | payer MEDICARE, SELFPAY | PROVIDERS: PCP Internal Medicine; Visit Provider Internal Medicine Cardiovascular Disease | DX: Z45.02 Encounter for adjustment and management of automatic implantable cardiac defibrillator (principal); I50.20 Unspecified systolic (congestive) heart failure; I47.10 Supraventricular tachycardia, unspecified | CPT/HCPCS: 99212 ==

== ENCOUNTER → 2024-03-12 23:59 | Outpatient (BNV) | payer MEDICARE, MEDICAID, SELFPAY ==
--- NOTE | 2024-03-13 15:10 | MHC.OFFVIS ---
Intake Visit Reasons: Remote ICD check- [facility] Allergies No Known Allergies Allergy (Verified 08/26/23 10:40) [facility] Medical History Anomalous coronary artery origin Atherosclerotic cardiovascular disease Heart failure with reduced ejection fraction HLD (hyperlipidemia) Acute on chronic combined systolic and diastolic CHF (congestive heart failure) Nonischemic cardiomyopathy CAD (coronary artery disease) ICD (implantable cardioverter-defibrillator) in place Hypertension Pacemaker Surgical History Hx of cardiac catheterization Family History Father No problems noted. Mother No problems noted. 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 ICD function is adequate [id number] Cardiac Interrogation, implant defibrillator w/interim Procedure code (CPT) selection complete Assessment & Plan Assessment & Plan (1) ICD (implantable cardioverter-defibrillator) in place: Code(s): Z95.810 - Presence of automatic (implantable) cardiac defibrillator Category: Medical Plan: See above Coding Level of Care Code Procedure Only Diagnoses ICD (implantable cardioverter-defibrillator) in place Z95.810 CPT Codes Cardiac Device Check - Cardiac Device 13: [id number] Cardiac Interrogation, implant defibrillator w/interim ([id number])
== END ==
PROVIDERS: PCP Internal Medicine; Visit Provider Internal Medicine Cardiovascular Disease
DX: Z45.02 Encounter for adjustment and management of automatic implantable cardiac defibrillator (principal)
CPT/HCPCS: 93295

== ENCOUNTER → 2024-03-16 10:08 | Outpatient (REF) | payer MEDICARE, MEDICAID, OTHER, SELFPAY ==
--- NOTE | 2024-03-16 10:13 | CA_ITS ---
Transthoracic Echocardiogram Patient (Last, First, Middle): Trenton Wallace, Gender: Male Date of : 1955 Age: 69 Procedure Date: 03/16/2024 Procedure Type: Transthoracic Echocardiogram Location: OP Height: 167.64 cm Weight: 71.67 kg BSA: 1.81 m2 Heart Rate: 55 bpm BP: 120 / 60 mmHg Inspector Handbag Frames: MARY CARMEN Referring MD: Nash Anne MD Symptoms: I50.20 - Unspecified systolic (congestive) heart failure Study Quality: Adequate ECG Rhythm: Bradycardia Conclusions: - The left ventricular systolic function is severely decreased. The visually estimated ejection fraction is between 10-15%. - The inferoseptal wall, the basal anteroseptal, and mid anteroseptal segments are akinetic. - Severely increased left ventricular cavity size. - No obvious valvular pathology seen on this study. Findings Left Ventricle Severely increased left ventricular cavity size. The left ventricular systolic function is severely decreased. The visually estimated ejection fraction is between 10-15%. There is severe global hypokinesis. Evidence suggests grade I (mild) diastolic dysfunction. There is mild septal asymmetric hypertrophy. LV peak GLS -7.6%. Wall Motion Rest Echo Findings The inferoseptal wall, the basal anteroseptal, and mid anteroseptal segments are akinetic. Right Ventricle Normal right ventricular cavity size. There is moderately decreased right ventricular systolic function. Atria The left atrium is mildly dilated. The right atrium is normal in size. Aortic Valve There is a normal trileaflet aortic valve. There is no aortic valve stenosis. There is no aortic valve regurgitation. Mitral Valve The mitral valve appears normal. There is trace mitral valve regurgitation. There is no mitral valve stenosis. Pulmonic Valve The pulmonic valve is likely normal. Tricuspid Valve Normal tricuspid valve structure. There is trace tricuspid valve regurgitation. There is no evidence of pulmonary hypertension. Great Vessels The asc aorta and aortic arch are normal in size. Venous The inferior vena cava is normal in size and collapses greater than 50% with inspiration. Pericardium/Pleural There is no evidence of pericardial effusion. Prior Study Comparison No significant change compared to prior study dated: 01/26/2023. (images reviewed). Recommendations, Care & Conclusions No obvious valvular pathology seen on this study. Measurements 2D Linear Measurements IVSd: 1.07 0.6-0.9/0.6-1.0 cm LVIDd: 7.31 3.9-5.3/4.2-5.9 cm LVIDd Index: 4.04 2.4-3.2/2.2-3.1 cm/m2 LVIDs: 6.89 2.0-3.6 cm LVPWd: 0.89 0.7-1.1 cm Ao Root: 3.60 2.1-3.5 cm LA Diam: 4.70 2.7-3.8/3.0-4.0 cm LAIDs Index: 2.60 1.5-2.3 cm/m2 LV Mass: 421.42 67-162/88-224 g LV Mass Index: 232.83 43-95/49-115 g/m2 LVOT Diam: 2.30 3.0+(-)1.3 cm 2D Systolic Function EF 4C: 24.60 >55% EF 2C: 21.00 >55% EF BiP: 22.90 >55% Mitral Valve MV Pk E: 0.32 MV PK A: 0.75 E/A: 0.40 E'Lateral: 2.83 E/E' Lat: 11.40 Aortic Valve AoV Pk Aris: 0.97 AoV Pk Grad: 4.00 IVAN: 2.06 LVOT LVOT Pk Aris: 0.48 LVOT Mn Aris: 0.33 LVOT VTI: 0.08 LVOT Pk Grad: 1.00 LVOT Mn Grad: 0.00 LVOT Diam: 2.30 LVOT Area: 4.15 Diastolic Function MV Pk E: 0.32 MV Pk A: 0.75 E/A: 0.40 E' Laterial: 2.83 E/E' Lat: 11.40 Right Ventricle TAPSE (mm): 10.20 TVS' Aris: 7.94 Tricuspid Valve TR Pk Aris: 2.30 TR Pk Grad: 21.00 RA Press: 3.00 RVSP: 24.00 Great Vessels Aorta Ao Root-2D: 3.60 2.0-3.7 cm Ao Asc: 3.30 2.1-3.4 cm Ao Arch: 2.50 Pulmonary Veins Pulm Vein S/D 1.50 Pulmonary Valve PV Pk Aris: 0.86 Peak PV Grad: 3.00 Updated in Other Vendor System with Status of Final Bi Ling MD electronically signed on 03/20/2024 11:48:27 AM with status of Final
== END ==
LOC: HO.CARD 10:08
PROVIDERS: PCP Internal Medicine; Visit Provider Internal Medicine Cardiovascular Disease
DX: I50.20 Unspecified systolic (congestive) heart failure (principal)
CPT/HCPCS: 93306; 93356

== ENCOUNTER → 2024-03-16 10:13 | Outpatient (BNV) | payer MEDICARE, MEDICAID, SELFPAY | PROVIDERS: PCP Internal Medicine; Visit Provider Internal Medicine | DX: I50.20 Unspecified systolic (congestive) heart failure (principal) | CPT/HCPCS: 93306; 93356 ==

== ENCOUNTER → 2024-06-11 23:59 | Outpatient (BNV) | payer OTHER, MEDICAID, SELFPAY ==
--- NOTE | 2024-06-11 13:59 | A.OFFVIS_ITS ---
Intake Visit Reasons: Remote ICD check- [facility] Allergies No Known Allergies Allergy (Verified 08/26/23 10:40) [facility] Medical History Anomalous coronary artery origin Atherosclerotic cardiovascular disease Heart failure with reduced ejection fraction HLD (hyperlipidemia) Acute on chronic combined systolic and diastolic CHF (congestive heart failure) Nonischemic cardiomyopathy CAD (coronary artery disease) ICD (implantable cardioverter-defibrillator) in place Hypertension Pacemaker Surgical History Hx of cardiac catheterization Family History Father No problems noted. Mother No problems noted. 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 ICD function is adequate. Few episodes of high ventricular rate consistent with SVT noted [id number] Cardiac Interrogation, implant defibrillator w/interim Procedure code (CPT) selection complete Assessment & Plan Assessment & Plan (1) ICD (implantable cardioverter-defibrillator) in place: Code(s): Z95.810 - Presence of automatic (implantable) cardiac defibrillator Category: Medical Plan: See above Coding Level of Care Code Procedure Only Diagnoses ICD (implantable cardioverter-defibrillator) in place Z95.810 CPT Codes Cardiac Device Check - Cardiac Device 13: [id number] Cardiac Interrogation, implant defibrillator w/interim ([id number])
== END ==
PROVIDERS: PCP Internal Medicine; Visit Provider Internal Medicine Cardiovascular Disease
DX: I47.10 Supraventricular tachycardia, unspecified (principal); Z95.810 Presence of automatic (implantable) cardiac defibrillator
CPT/HCPCS: 93295

== ENCOUNTER 2024-07-25 08:57 | Outpatient (REF) | payer OTHER, SELFPAY ==
[2024-07-25 10:16] LABS: Alanine Aminotransferase 18 U/L (0-40); Albumin Level 4.5 g/dL (3.5-5.0); Alkaline Phosphatase 55 U/L (39-117); Anion Gap 16 (12-20); Aspartate Amino Transferase 17 U/L (5-37); Bilirubin Total 0.9 mg/dL (0.0-1.0); Blood Urea Nitrogen 18 mg/dL (9-16); Calcium 9.9 mg/dL (8.4-10.2); Carbon Dioxide 28 mmol/L (22-29); Chloride 99 mmol/L (96-108); Cholesterol 169 mg/dL (<200); Estimated Glomerular Filt Rate > 60; Glucose Random 121 mg/dL (60-115); HDL Cholesterol 41 mg/dL (>40); LDL Cholesterol Calculated 89 mg/dL (<100); Potassium 4.6 mmol/L (3.3-5.1); Sodium 138 mmol/L (135-145); Total Protein 7.9 g/dL (6.5-8.0); Triglycerides 196 mg/dL (<150)
== END 2024-07-25 08:58 | disposition home or self-care (01) ==
LOC: HO.LAB 08:57
PROVIDERS: PCP Internal Medicine; Visit Provider Internal Medicine
DX: Z00.00 Encounter for general adult medical examination without abnormal findings (principal); I25.5 Ischemic cardiomyopathy; E78.00 Pure hypercholesterolemia, unspecified; Z95.0 Presence of cardiac pacemaker
CPT/HCPCS: 36415; 80053; 80061

== ENCOUNTER 2024-08-10 09:05 | Outpatient (AMB) | payer OTHER, SELFPAY ==
--- NOTE | 2024-08-10 09:57 | AM.OFFVISNUR ---
Intake Visit Reasons: ekg, needs labs Allergies No Known Allergies Allergy (Verified 08/26/23 10:40) Nursing Note pt is here for nurse visit with ekg pt states no cardiac symptoms Office Procedures EKG [id number], Complete
== END 2024-08-10 10:02 | disposition home or self-care (01) ==
PROVIDERS: PCP Internal Medicine; Visit Provider Nurse Practitioner Family
DX: I44.0 Atrioventricular block, first degree (principal); R94.31 Abnormal electrocardiogram [ECG] [EKG]
CPT/HCPCS: 93010

== ENCOUNTER 2024-08-20 09:27 | Outpatient (AMB) | payer OTHER, SELFPAY ==
--- NOTE | 2024-08-20 09:39 | AM.OFFVISNUR ---
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
== END 2024-08-20 10:04 | disposition home or self-care (01) ==
PROVIDERS: PCP Internal Medicine; Visit Provider Nurse Practitioner Family
DX: I44.0 Atrioventricular block, first degree (principal); R94.31 Abnormal electrocardiogram [ECG] [EKG]
CPT/HCPCS: 93010

== ENCOUNTER → 2024-08-20 09:27 | Outpatient (BNVA) | payer OTHER, SELFPAY | PROVIDERS: PCP Internal Medicine; Visit Provider Nurse Practitioner Family | DX: R94.31 Abnormal electrocardiogram [ECG] [EKG] (principal); I44.0 Atrioventricular block, first degree; I45.4 Nonspecific intraventricular block; Z79.899 Other long term (current) drug therapy | CPT/HCPCS: 93005 ==

== ENCOUNTER 2024-09-01 07:07 | Emergency (ER) | payer OTHER, SELFPAY ==
--- NOTE | ~2024-09-01 | XR_ITS ---
EXAMINATION: XR CHEST CLINICAL INFORMATION: Shortness of breath COMPARISON: Chest radiograph dated 05/02/2022 TECHNIQUE: Frontal view of the chest was obtained. FINDINGS: Single lead left-sided pacemaker remains in place. No significant abnormality is noted involving the heart, lungs, mediastinum, bony thorax or soft tissues. XR/XR chest 1V IMPRESSION: Unremarkable examination. Electronically signed by: Bianca Moore MD 09/01/2024 08:45 AM [facility]
--- NOTE | ~2024-09-01 | US_ITS ---
EXAMINATION: US ABDOMEN LIMITED CLINICAL INFORMATION: Epigastric pain. COMPARISON: None available. TECHNIQUE: Real-time imaging of the right upper quadrant abdominal viscera. FINDINGS: PANCREAS: Normal. LIVER: Normal. The liver is normal in size. The liver contour is normal. Parenchymal echogenicity is normal. No focal hepatic lesion. There is no intrahepatic biliary duct dilatation seen. GALLBLADDER: Normal. The gallbladder is physiologically distended without evidence of stones, sludge, polyps, wall thickening or pericholecystic fluid. Sonographic Kruger sign is negative. COMMON BILE DUCT: Normal in caliber measuring 0.3 cm in diameter. RIGHT KIDNEY: Cystic focus within the right renal upper pole containing septation measuring up to 1.1 cm. No hydronephrosis. No renal calculi or focal parenchymal lesions. The kidney measures 12.2 cm in maximum dimension. FREE FLUID: None. US/US abdomen limited IMPRESSION: Cystic focus within the right renal upper pole containing septation measuring up to 1.1 cm. Electronically signed by: Bren Vazquez MD 09/01/2024 08:46 AM [facility] [place]
--- NOTE | 2024-09-01 07:09 | ECG_ITS ---
Test Reason : CHEST PAIN Blood Pressure : / mmHG Vent. Rate : 096 BPM Atrial Rate : 052 BPM P-R Int : 206 ms QRS Dur : 138 ms QT Int : 370 ms P-R-T Axes : 011 -16 126 degrees QTc Int : 467 ms Normal sinus rhythm with Premature ventricular complexes Non-specific intra-ventricular conduction block Minimal voltage criteria for LVH, may be normal variant ( [place] product ) Cannot rule out Septal infarct (cited on or before 02-MAY-2023) T wave abnormality, consider lateral ischemia Abnormal ECG When compared to the previous EKG of QRS duration has increased T wave inversion less evident in Lateral leads Referred By: Generic ED Physician Electronically Signed By:DANYELL ROMAN MD
[2024-09-01 07:21] VITALS: BP 138/91; PULSE 100; RESP 18; TEMP 36.5; O2SAT 97; BMI 27.1
--- NOTE | 2024-09-01 07:51 | ED_ITS ---
HPI - Chest Pain General Chief Complaint: Chest Pain Stated Complaint: chest pain Time Seen by Provider: 09/01/24 07:30 Source: patient, family and personnel counselor Mode of arrival: ambulatory Limitations: no limitations History of Present Illness ED Provider: DR. Amos HPI narrative: 69-year-old male came in for evaluation of 3 days of epigastric / lower chest pain pain started about 3 days ago after eating a tuna sandwich late at night next morning patient woke up with epigastric pain, nausea and vomiting since then patient been having nausea and epigastric abdominal pain no vomiting, normal bowel movement, no blood in the vomit or in the stool. Patient declined drinking alcohol. Related Data Home Medications ?Medication ?Instructions ?Recorded ?Confirmed aspirin 81 mg tablet,delayed 81 mg PO DAILY 08/18/20 02/23/24 release (Adult Low Dose Aspirin) ezetimibe 10 mg tablet 10 mg PO DAILY 08/18/20 02/23/24 rosuvastatin 40 mg tablet 40 mg PO BEDTIME 08/18/20 02/23/24 sertraline 50 mg tablet 50 mg PO DAILY 08/18/20 02/23/24 potassium chloride 10 mEq 10 meq PO DAILY 01/23/22 02/23/24 capsule,extended release Previous Rx's ?Medication ?Instructions ?Recorded cyclobenzaprine 10 mg tablet 10 mg PO TID PRN muscle spasm #14 04/07/22 tabs ibuprofen 600 mg tablet 600 mg PO Q8H PRN pain #14 tabs 04/07/22 spironolactone 25 mg tablet 25 mg PO DAILY 90 days #90 tabs 04/20/23 polyethylene glycol 3350 17 17 g PO BID #119 grams 05/09/23 gram/dose oral powder carvedilol 25 mg tablet 25 mg PO BID 90 days #180 tabs 01/10/24 empagliflozin 10 mg tablet 10 mg PO DAILY #30 tabs 02/08/24 (Jardiance) ivabradine 5 mg tablet (Corlanor) 5 mg PO BID #60 tabs 02/20/24 furosemide 80 mg tablet 80 mg PO DAILY 90 days #90 tabs 05/21/24 amiodarone 200 mg tablet 200 mg PO .COMPLEX 30 days #70 tabs 08/10/24 sacubitril 24 mg-valsartan 26 mg 1 tab PO BID #180 tabs 08/20/24 tablet (Entresto) omeprazole 40 mg capsule,delayed 40 mg PO DAILY #30 caps 09/01/24 release Allergies Allergy/AdvReac Type Severity Reaction Status Date / Time No Known Allergies Allergy Verified 09/01/24 07:24 Review of Systems 2 Review of Systems: All other systems are reviewed and are negative Constitutional: Reports as per HPI and Reports no additional constitutional complaints Eyes: Reports as per HPI and Reports no additional eye complaints Reports system reviewed and no additional complaints, except as documented Cardiovascular: Reports as per HPI and Reports no additional cardiovascular complaints Respiratory: Reports as per HPI and Reports no additional respiratory complaints Gastrointestinal: Reports as per HPI and Reports no additional gastrointestinal complaints Genitourinary: Reports no additional female genitourinary complaints Musculoskeletal: Reports no additional musculoskeletal complaints Skin/Breast: Reports system reviewed and no additional complaints, except as docu Psychiatric: Reports no additional psychiatric complaints Endocrine: Reports no additional endocrine complaints Hematologic/Lymphatic: Reports no additional hematologic/lymphatic complaints Allergic/Immunologic: Reports no additional allergic/immunologic complaints Reports system reviewed and no additional complaints, except as documented and Reports Abnormal speech present [facility] Past Medical History Medical History Anomalous coronary artery origin Atherosclerotic cardiovascular disease Heart failure with reduced ejection fraction HLD (hyperlipidemia) Acute on chronic combined systolic and diastolic CHF (congestive heart failure) Nonischemic cardiomyopathy CAD (coronary artery disease) ICD (implantable cardioverter-defibrillator) in place Hypertension Pacemaker Surgical History Hx of cardiac catheterization Family History Family History Father No problems noted. Mother No problems noted. 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 Blood pressure elevated. Heart rate normal. Respiratory rate normal. Temperature normal. Oxygen saturation normal. Appearance: Alert. Oriented X3. No acute distress. Head: Normal external exam. Normocephalic. Atraumatic. No Guevara signs noted. No raccoon eyes noted Eyes: PERRLA. EOMI. Conjunctiva and sclera normal. Eyelids normal. ENT: TM's Normal. Pharynx normal. Uvula midline. Moist mucous membranes. No trismus noted. No drooling noted. No muffled voice noted. Neck: Normal inspection. Neck supple. FROM. No adenopathy. Thyroid Normal. No meningeal signs. No neck mass noted. CVS: Normal heart rate and rhythm. Heart sound normal. No murmurs noted. Pulses normal throughout. Respiratory: No respiratory distress. Painless inspiration. Breath sounds normal. No wheezes/rales/rhonchi noted. Chest nontender. No accessory muscle usage noted or decreased air movement noted. Abdomen: Soft , epigastric tenderness, no rebound tenderness, no guarding. Bowel sounds normal in all 4 quadrants. No distention noted. No organomegaly noted. No visible injury noted. Back: No CVA tenderness. Full range of motion noted. Skin: Skin warm and dry. Normal skin color. Normal skin turgor. No rashes/lesions/lacerations noted. Extremities: No lower extremity edema. Extremities exhibit normal range of motion. Extremities nontender. Neuro: Oriented X 3. Cranial nerve exam: II-XII are grossly intact No motor deficit. No sensory deficit. Reflexes normal. Course Reevaluation(s) Reevaluation #1: chest/epigastric pain, exam is consistent with acute gastritis, patient feels better after Pepcid/Maalox, ultrasound abdomen pelvis is unremarkable, cardiac workup is negative for acute pathology or ACS. Time: 12:19 Medications Administered Discontinued Medications Generic Name Dose Route Start Last Admin Trade Name Freq PRN Reason Stop Dose Admin Al Hydroxide/Mg Hydroxide 30 ml 09/01/24 07:50 09/01/24 08:47 Magnesium Hydrox/Alum Hydrox 30 Ml Oral.Susp PO 09/01/24 07:51 30 ml ONCE ONE Administration Famotidine 20 mg 09/01/24 07:50 09/01/24 08:47 Famotidine/Pf 20 Mg/2 Ml Vial IVPUSH 09/01/24 07:51 20 mg ONCE ONE Administration Ondansetron HCl 4 mg 09/01/24 07:50 09/01/24 08:47 Ondansetron Hcl 4 Mg/2 Ml Vial IVPUSH 09/01/24 07:51 4 mg ONCE ONE Administration Medical Decision Making Differential Diagnosis Differential Diagnoses: The differential diagnosis associated with the presentation includes ( ACS, pneumonia, pneumothorax, pleural effusion, gallbladder disease, gastritis, electrolyte derangement, severe anemia.) Admission/Observation Consideration of admission/observation: Escalation of care including admission/observation considered Lab Data MDM Lab Attestation statement: I reviewed the patient's lab results. 09/01/24 07:53 09/01/24 11:12 Labs: Lab Results 09/01/24 09/01/24 09/01/24 Range/Units 07:53 10:37 11:12 WBC 10.8 (4.8-10.8) X10*3/uL RBC 4.68 (4.60-5.80) X10*6/uL Hgb 14.7 (14.0-18.0) g/dl Hct 43.1 (42.0-52.0) % MCV 92.1 (80.0-98.0) fL MCH 31.4 (27.0-33.0) pg MCHC 34.1 (31.0-36.0) g/dl RDW 11.9 (11.0-16.0) % Plt Count 238 (160-400) X10*3/uL MPV 10.6 (9.4-12.4) fL Immature Gran % (Auto) 0.4 (0.0-0.4) % Neut % (Auto) 74.7 H (45-73) % Lymph % (Auto) 15.3 L (20-40) % Bureau % (Auto) 8.4 (2-11) % Eos % (Auto) 0.7 (0-4) % Baso % (Auto) 0.5 (0-2) % Lymph # (Auto) 1.7 (1.2-4.9) X10*3/uL Bureau # (Auto) 0.9 (0.1-1.2) X10*3/uL Eos # (Auto) 0.1 (0.0-0.4) X10*3/uL Baso # (Auto) 0.1 (0.0-0.2) X10*3/uL Abs Immat Gran (auto) 0.04 H (0.00-0.03) X10*3/uL Absolute Neuts (auto) 8.1 (2.0-8.3) x10*3/uL Absolute Nucleated RBC 0.000 (0.0-0.012) X10*3/uL Nucleated RBC % (auto) 0.0 (0.0-0.2) /100WBC Sodium 139 (135-145) mmol/L Potassium 5.3 H D 4.7 (3.3-5.1) mmol/L Chloride 104 (96-108) mmol/L Carbon Dioxide 25 (22-29) mmol/L Anion Gap 15 (12-20) BUN 17 H (9-16) mg/dL Creatinine 0.87 (0.5-1.4) mg/dL Estim Creat Clear Calc 73.3 Estimated GFR > 60 Random Glucose 115 (60-115) mg/dL Calcium 9.0 (8.4-10.2) mg/dL Magnesium 2.2 (1.6-2.6) mg/dL Total Bilirubin 0.6 (0.0-1.0) mg/dL AST 22 (5-37) U/L ALT 19 (0-40) U/L Alkaline Phosphatase 68 (39-117) U/L Troponin I High Sens 11.4 12.7 (<3.5-35.0) ng/L B-Natriuretic Peptide 677 H (<100) pg/mL Total Protein 7.2 (6.5-8.0) g/dL Albumin 4.0 (3.5-5.0) g/dL Lipase 15 (8-78) U/L Urine Color Yellow Urine Appearance Clear Urine pH 7.0 (5.0-9.0) Ur Specific [place] 1.025 (1.005-1.025) Urine Protein 30 (1+) H (Neg-Trace) mg/dL Urine Glucose (UA) >=1000 H (Negative) mg/dL Urine Ketones Trace (Negative) mg/dL Urine Blood Negative (Negative) Urine Nitrite Negative (Negative) Ur Leukocyte Esterase Negative (Negative) Urine RBC 0-2 (0-2) /HPF Urine WBC 0-5 (0-5) /HPF Ur Squamous Epith Cells 0-2 (0-2) /HPF Urine Bacteria None Seen (None Seen) Hyaline Casts 0-2 (0-2) /LPF Independent Interpretation I performed an independent interpretation of an: Plain X-Ray ( Chest: Unremarkable examination.) and Ultrasound (Cystic focus within the right renal upper pole containing septation measuring up to 1.1 cm. ) Radiology Impression Discussion of test interpretation with radiology: I have reviewed the radiologist's reading. Discharge Plan Discharge Clinical Impression: Acute epigastric pain, Gastritis Patient Disposition: Home, Self-Care Instructions: Gastritis (ED), Epigastric Pain (ED) Prescriptions: New omeprazole 40 mg capsule,delayed release(DR/EC) 40 mg PO DAILY Qty: 30 0RF No Action spironolactone 25 mg tablet 25 mg PO DAILY 90 Days Qty: 90 3RF carvedilol 25 mg tablet 25 mg PO BID 90 Days Qty: 180 3RF Rx Instructions: must administer with a meal/food Jardiance 10 mg tablet 10 mg PO DAILY Qty: 30 11RF Corlanor 5 mg tablet 5 mg PO BID Qty: 60 5RF furosemide 80 mg tablet 80 mg PO DAILY 90 Days Qty: 90 3RF amiodarone 200 mg tablet 200 mg PO .COMPLEX 30 Days Qty: 70 1RF Rx Instructions: Take 400 mg,( 2 tablets) twice a day for 14 days then reduce dose to 200 mg, (1 tablet) daily; Entresto 24-26 mg tablet 1 tab PO BID Qty: 180 1RF potassium chloride 10 mEq Capsule, Extended Release 10 meq PO DAILY cyclobenzaprine 10 mg tablet 10 mg PO TID PRN (Reason: muscle spasm) Qty: 14 0RF ibuprofen 600 mg tablet 600 mg PO Q8H PRN (Reason: pain) Qty: 14 0RF polyethylene glycol 3350 17 gram/dose powder 17 g PO BID Qty: 119 0RF rosuvastatin 40 mg tablet 40 mg PO BEDTIME sertraline 50 mg tablet 50 mg PO DAILY ezetimibe 10 mg tablet 10 mg PO DAILY aspirin [Adult Low Dose Aspirin] 81 mg tablet,delayed release (DR/EC) 81 mg PO DAILY Referrals: Imelda Sepulveda MD [Primary Care Provider] - Cinthia Newman MD [Physician] - Print Language: Other
[2024-09-01 07:59] LABS: MANUAL DIFF FLAG NO
[2024-09-01 08:03] LABS: Basophils Absolute Auto 0.1 X10*3/uL (0.0-0.2); Basophils Percent Auto 0.5 % (0-2); Eosinophils Absolute Auto 0.1 X10*3/uL (0.0-0.4); Eosinophils Percent Auto 0.7 % (0-4); Hematocrit 43.1 % (42.0-52.0); Hemoglobin 14.7 g/dl (14.0-18.0); Imm Gran Abs Auto 0.04 X10*3/uL (0.00-0.03); Imm Gran Pct Auto 0.4 % (0.0-0.4); Lymphocytes Absolute Auto 1.7 X10*3/uL (1.2-4.9); Lymphocytes Percent Auto 15.3 % (20-40); Mean Corpuscular HGB Conc 34.1 g/dl (31.0-36.0); Mean Corpuscular Hemoglobin 31.4 pg (27.0-33.0); Mean Corpuscular Volume 92.1 fL (80.0-98.0); Mean Platelet Volume 10.6 fL (9.4-12.4); Monocytes Absolute Auto 0.9 X10*3/uL (0.1-1.2); Monocytes Percent Auto 8.4 % (2-11); Neutrophils Absolute Auto 8.1 x10*3/uL (2.0-8.3); Neutrophils Percent Auto 74.7 % (45-73); Platelet Count 238 X10*3/uL (160-400); Red Blood Count 4.68 X10*6/uL (4.60-5.80); Red Cell Distribution Width 11.9 % (11.0-16.0); White Blood Count 10.8 X10*3/uL (4.8-10.8)
[2024-09-01 08:15] LABS: Alanine Aminotransferase 19 U/L (0-40); Alkaline Phosphatase 68 U/L (39-117); Anion Gap 15 (12-20); Aspartate Amino Transferase 22 U/L (5-37); Bilirubin Total 0.6 mg/dL (0.0-1.0); Blood Urea Nitrogen 17 mg/dL (9-16); Carbon Dioxide 25 mmol/L (22-29); Chloride 104 mmol/L (96-108); Creatinine Clr Calc Pharmacy 73.3; Estimated Glomerular Filt Rate > 60; Glucose Random 115 mg/dL (60-115); Lipase 15 U/L (8-78); Magnesium 2.2 mg/dL (1.6-2.6); Potassium 5.3 mmol/L (3.3-5.1); Sodium 139 mmol/L (135-145); Total Protein 7.2 g/dL (6.5-8.0)
[2024-09-01 08:19] LABS: B Type Natriuretic Peptide 677 pg/mL (<100)
[2024-09-01 08:22] LABS: Troponin-I High Sensitivity 11.4 ng/L (<3.5-35.0)
[2024-09-01] MEDS: Famotidine/PF 20 MG/2 ML VIAL IVPUSH (08:47)
[2024-09-01] MEDS: Magnesium Hydrox/Alum Hydrox 30 ML ORAL.SUSP PO (08:47)
[2024-09-01] MEDS: ondansetron HCL 4 MG/2 ML VIAL IVPUSH (08:47)
[2024-09-01 10:13] VITALS: BP 119/77; PULSE 82; RESP 20; O2SAT 96
[2024-09-01 10:50] LABS: Appearance Urine Clear; Color Urine Yellow; Glucose Urine UA >=1000 mg/dL (Negative); Leukocyte Esterase Urine Negative (Negative); Nitrite Urine Negative (Negative); Specific Gravity - Urine 1.025 (1.005-1.025); UMIC TRIGGER UACC YES; Urine Blood Negative (Negative); Urine Ketones Trace mg/dL (Negative); Urine Protein 30 (1+) mg/dL (Neg-Trace)
[2024-09-01 10:53] LABS: Bacteria Urine None Seen (None Seen); Hyaline Casts Urine 0-2 /LPF (0-2); RBC Urine 0-2 /HPF (0-2); Squamous Epithelial Cell Urine 0-2 /HPF (0-2); WBC Urine 0-5 /HPF (0-5)
[2024-09-01 11:31] LABS: Potassium 4.7 mmol/L (3.3-5.1)
[2024-09-01 11:44] LABS: Troponin-I High Sensitivity 12.7 ng/L (<3.5-35.0)
[2024-09-01 12:54] VITALS: BP 100/52; PULSE 85; RESP 20; TEMP 36.8; O2SAT 95
== END 2024-09-01 12:54 | disposition home or self-care (01) ==
PROVIDERS: Emergency Provider Emergency Medicine; PCP Internal Medicine
DX: R10.13 Epigastric pain (principal); K29.60 Other gastritis without bleeding; R06.02 Shortness of breath; I11.0 Hypertensive heart disease with heart failure; I50.43 Acute on chronic combined systolic (congestive) and diastolic (congestive) heart failure; E78.5 Hyperlipidemia, unspecified; Z95.810 Presence of automatic (implantable) cardiac defibrillator; Z79.82 Long term (current) use of aspirin; Z79.02 Long term (current) use of antithrombotics/antiplatelets; Z79.899 Other long term (current) drug therapy
CPT/HCPCS: 36415; 71045; 76705; 80053; 81001; 83690; 83735; 83880; 84132; 84484; 85025; 93005; 96374; 96375; 99284; J2405

== ENCOUNTER → 2024-09-01 07:09 | Outpatient (BNV) | payer OTHER, SELFPAY | PROVIDERS: Emergency Provider Emergency Medicine; PCP Internal Medicine; Visit Provider Internal Medicine Cardiovascular Disease | DX: R07.9 Chest pain, unspecified (principal); I49.3 Ventricular premature depolarization; I45.4 Nonspecific intraventricular block; R94.31 Abnormal electrocardiogram [ECG] [EKG] | CPT/HCPCS: 93010 ==

== ENCOUNTER 2024-09-05 09:21 | Outpatient (AMB) | payer OTHER, SELFPAY ==
--- NOTE | 2024-09-05 09:28 | MHC.OFFVIS ---
Vital Signs 09/05/24 09:29 Height 5 ft 6 in Weight 167 lb 8.821 oz BMI 27.0 BP 120/68 Blood Pressure Location Lt brachial Position Sitting Pulse 84 Pulse Source Monitor Intake Visit Reasons: 6 mth fu w/ device check (could only come am) Associate Professor Of English Required: Yes Associate Professor Of English Services: Associate Professor Of English Offered & Declined Accompanied by: Family/Other Allergies No Known Allergies Allergy (Verified 09/01/24 07:24) Medication List - Last Reconciled 09/05/24 by Nash Anne MD amiodarone 200 mg PO DAILY aspirin (Adult Low Dose Aspirin) 81 mg PO DAILY carvedilol 25 mg PO BID 90 days cyclobenzaprine 10 mg PO TID PRN empagliflozin (Jardiance) 10 mg PO DAILY ezetimibe 10 mg PO DAILY furosemide 80 mg PO DAILY 90 days ibuprofen 600 mg PO Q8H PRN ivabradine (Corlanor) 5 mg PO BID omeprazole 40 mg PO DAILY polyethylene glycol 3350 17 grams PO BID potassium chloride ER 10 mEq PO DAILY rosuvastatin 40 mg PO BEDTIME sacubitril-valsartan 24-26 mg (Entresto) 1 tab PO BID sertraline 50 mg PO DAILY spironolactone 25 mg PO DAILY 90 days HPI Comments Details: [place] comes for follow-up, accompanied by his PCP 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 They declined certified blue leather sorter. Patient in July on remote telemetry was noted to have sustained VT that required treatment with ventricular stim with rapid pacing that converted to sinus rhythm. He was then started on amiodarone therapy with loading. Currently taking 200 mg daily. He was over the weekend in the hospital after he had acid reflux symptoms after eating late dinner. He had retrosternal chest discomfort which improved with GI therapy. Was given omeprazole. He has not had any lightheadedness, syncope, ICD discharge. He denies any worsening exertional shortness of breath, chest discomfort. No orthopnea, PND, leg edema. Takes all his medications. No weight gain or abdominal distension. He maintains activity level as tolerated. [facility] Medical History Anomalous coronary artery origin Atherosclerotic cardiovascular disease Heart failure with reduced ejection fraction HLD (hyperlipidemia) Acute on chronic combined systolic and diastolic CHF (congestive heart failure) Nonischemic cardiomyopathy CAD (coronary artery disease) ICD (implantable cardioverter-defibrillator) in place Hypertension Pacemaker Surgical History Hx of cardiac catheterization Family History Father No problems noted. Mother No problems noted. 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) Alcohol intake: current Alcohol intake frequency: a few times a month Alcohol type: beer Patient Tobacco Use Status: Never used Tobacco Substance Use Type: Marijuana service: No Current occupational status: disabled Review of Systems Const Denies weakness ENT Denies dizziness Card Denies chest pain, Denies chest pain with activity, Denies syncope, Denies rapid heart rate, Denies pedal edema, Denies edema, Denies leg edema, Denies lightheadedness, Denies palpitations, Denies dyspnea, Denies dyspnea on exertion and Denies orthopnea Resp Denies cough, Denies dyspnea and Denies dyspnea on exertion GI Denies hematochezia and Denies change in stool character Musc Denies abnormal gait, Denies muscle cramps, Denies muscle weakness, Denies numbness, Denies radiating pain into limb and Denies tingling Neuro Denies abnormal gait, Denies dizziness, Denies syncope, Denies numbness, Denies tingling and Denies weakness Endo Denies palpitations Physical Exam Vital Signs: Last Vital Signs Pulse 84 09/05/24 09:29 BP 120/68 09/05/24 09:29 BMI result Body Mass Index 27.0 Const General: cooperative, comfortable, alert and awake Nutritional Appearance: overweight Orientation/consciousness: patient oriented x3 Limitations: no limitations Neck Neck: Yes trachea midline, Yes supple and Yes no JVD Resp Effort & Inspection: normal respiratory effort Auscultation: clear to auscultation bilaterally Cardio Jugular venous distension: no JVD Palpation: abnormal PMI displaced PMI Rate: regular rate Rhythm: regular rhythm Heart sounds: S1 normal heart sound present and S2 normal heart sound present GI Inspection: Yes obesity Auscultation: normal bowel sounds Skin General skin exam: no rashes or lesions noted Neuro General: patient oriented x3 and no focal motor deficits Extrem General: Yes no clubbing, cyanosis or edema Psych Appearance: grossly normal Office Procedures Cardiac Device Check Cardiac Device Check Details: Single-chamber [place] ICD in place. Programmed in VVI at 40 beats per minute. Multiple high ventricular rate episode noted which in the past have been suggestive of SVT. There was 1 episode which required V pacing therapy which converted to sinus rhythm. Ventricular sensing is excellent. Ventricular capture thresholds adequate. Pacing and shock lead impedance is stable. Battery life is at 2.1 years [id number] Cardiac Device Check, single lead implantable defibrillator Procedure code (CPT) selection complete EKG Details: EKG shows normal sinus rhythm with IV CD with PVCs. [id number], Complete Assessment & Plan Assessment & Plan (1) Ventricular arrhythmia: Code(s): I49.9 - Cardiac arrhythmia, unspecified Category: Medical Plan: Sustained ventricular arrhythmias recently which were treated appropriately by ICD with V pacing. Currently being monitored continuously will continue monitor remotely. Started on amiodarone therapy appropriately. Currently tolerating it well. Discussed the need for amiodarone with him and his MAGNETOMETER OPERATOR. They understand agree. Will need to check for amiodarone toxicity on a yearly basis but will require lifetime amiodarone therapy to reduce risk of ventricular arrhythmias as well as ICD discharge. This was discussed with him. Will continue monitor. Follow up in the clinic in 3 months time. (2) Heart failure with reduced ejection fraction: Code(s): I50.20 - Unspecified systolic (congestive) heart failure Category: Medical Plan: Heart failure with reduced ejection fraction with marked LV systolic dysfunction with significantly dilated left ventricle. Clinically euvolemic and well compensated with NYHA class 1-2 symptoms. Continues to have elevated heart rate in the upper 70s and 80s. Will increase carvedilol to 37.5 mg b.i.d.. Advised to monitor blood pressure at home maintain a log. Continue Entresto at current dose. Continue Jardiance as well as spironolactone for neurohormonal modulation. Continue Corlanor therapy as well. Heart failure management discussed in details. Appears clinically euvolemic. Daily weight monitoring avoidance of salt loading was discussed. Continue current diuretic regimen. Additional diuretics as need be. Overall prognosis guarded. (3) ICD (implantable cardioverter-defibrillator) in place: Code(s): Z95.810 - Presence of automatic (implantable) cardiac defibrillator Category: Medical Plan: ICD in place for primary prevention. Working appropriately. Will follow remotely. Follow up in the clinic in 3 months time. Will follow up in the clinic in 3 months time. Greater than 40 minutes was spent in managing his complex care. Medications: New amiodarone 200 mg PO DAILY 30 tabs 5RF Changed From carvedilol must administer with a meal/food 25 mg PO BID 90 days 180 tabs 3RF To carvedilol must administer with a meal/food 37.5 mg (1.5 x 25 mg) PO BID 270 tabs 3RF 90 days Coding Level of Care Code Est Pt Level 5 (69713) Complex EM visit Add On G2211 Diagnoses Ventricular arrhythmia I49.9 Heart failure with reduced ejection fraction I50.20 ICD (implantable cardioverter-defibrillator) in place Z95.810 CPT Codes Cardiac Device Check - Cardiac Device 4: [id number]-MA Cardiac Device Check, single lead implantable defibrillator ([id number]) EKG - CPT: 13354-[id number], Complete ([id number])
[2024-09-05 09:29] VITALS: BP 120/68; PULSE 84; BMI 27.0
== END 2024-09-05 10:06 | disposition home or self-care (01) ==
PROVIDERS: PCP Internal Medicine; Visit Provider Internal Medicine Cardiovascular Disease
DX: I50.22 Chronic systolic (congestive) heart failure (principal); I47.10 Supraventricular tachycardia, unspecified; Z95.810 Presence of automatic (implantable) cardiac defibrillator; R94.31 Abnormal electrocardiogram [ECG] [EKG]; I44.0 Atrioventricular block, first degree; I49.3 Ventricular premature depolarization
CPT/HCPCS: 93010; 93282; 99215; G2211

== ENCOUNTER → 2024-09-05 09:21 | Outpatient (BNVA) | payer OTHER, SELFPAY | PROVIDERS: PCP Internal Medicine; Visit Provider Internal Medicine Cardiovascular Disease | DX: I44.0 Atrioventricular block, first degree (principal); I49.3 Ventricular premature depolarization; I45.10 Unspecified right bundle-branch block; I49.9 Cardiac arrhythmia, unspecified; I11.0 Hypertensive heart disease with heart failure; I50.20 Unspecified systolic (congestive) heart failure; Z45.010 Encounter for checking and testing of cardiac pacemaker pulse generator [battery] | CPT/HCPCS: 93005; 99212 ==

== ENCOUNTER 2024-10-02 08:54 | Inpatient (IN) | payer OTHER, SELFPAY ==
[2024-10-02] VITALS (12 sets, daily range): BP systolic 99–155; BP diastolic 55–87; PULSE 66–118; RESP 16–33; TEMP 36.6–37.3; O2SAT 92–98; BMI 26.6; BMI 29.0
--- NOTE | ~2024-10-02 | XR_ITS ---
EXAMINATION: XR CHEST CLINICAL INFORMATION: sob COMPARISON: 05/02/2023 TECHNIQUE: Frontal view of the chest was obtained. FINDINGS: Bibasilar infiltrates noted. Heart appears borderline in size but there does appear to be slight distention of the pulmonary vessels. This suggests mild congestive failure with edema. Left-sided pacer stable in position. The distal tip however is not included on the radiograph. XR/XR chest 1V IMPRESSION: Very mild congestive change and right basilar edema. Electronically signed by: Cade Connelly MD 10/02/2024 12:55 PM [facility]
--- NOTE | 2024-10-02 09:20 | ECG_ITS ---
Test Reason : DYSPNEA Blood Pressure : / mmHG Vent. Rate : 103 BPM Atrial Rate : 103 BPM P-R Int : 296 ms QRS Dur : 146 ms QT Int : 376 ms P-R-T Axes : 076 120 -19 degrees QTc Int : 492 ms Sinus tachycardia with 1st degree A-V block with frequent Premature ventricular complexes Non-specific intra-ventricular conduction block Lateral infarct , age undetermined Abnormal ECG When compared with ECG of 01-SEP-2024 07:07, No significant changes seen Referred By: Roney Renee Electronically Signed By:DANYELL ROMAN MD
--- NOTE | 2024-10-02 09:32 | ED.SOB ---
HPI - SOB/Dyspnea General Chief Complaint: Dyspnea Stated Complaint: SOB Time Seen by Provider: 10/02/24 09:19 Source: patient Mode of arrival: ambulatory Limitations: no limitations History of Present Illness HPI Narrative: THIS IS 69 YEARS OLD MAN WITH HISTORY OF HEART FAILURE, NONISCHEMIC CARDIOMYOPATHY, ICD PRESENTED TO EMERGENCY DEPARTMENT WITH A CHIEF COMPLAINT OF SHORTNESS OF BREATH WORSE LYING FLAT. HE STATES THAT HE DID NOT TAKE HIS MEDICATION FOR ABOUT 3 DAYS. HE ALSO COMPLAINING OF CHEST PAIN. MD elicited complaint: shortness of breath Pertinent past history: congestive heart failure Onset (ago): day(s) (1) Timing: constant Severity: moderate Exacerbating factors: lying flat Relieving factors: nothing Known history of: congestive heart failure Associated symptoms: chest pain Related Data Home Medications ?Medication ?Instructions ?Recorded ?Confirmed aspirin 81 mg tablet,delayed 81 mg PO DAILY 08/18/20 10/02/24 release (Adult Low Dose Aspirin) ezetimibe 10 mg tablet 10 mg PO DAILY 08/18/20 10/02/24 rosuvastatin 40 mg tablet 40 mg PO BEDTIME 08/18/20 10/02/24 digoxin 250 mcg (0.25 mg) tablet 250 mcg PO DAILY 10/02/24 10/02/24 ivabradine 5 mg tablet (Corlanor) 5 mg PO BID 10/02/24 10/02/24 omeprazole 40 mg capsule,delayed 40 mg PO DAILY PRN Acid Reflux 10/02/24 10/02/24 release Previous Rx's ?Medication ?Instructions ?Recorded ibuprofen 600 mg tablet 600 mg PO Q8H PRN pain #14 tabs 04/07/22 spironolactone 25 mg tablet 25 mg PO DAILY 90 days #90 tabs 04/20/23 empagliflozin 10 mg tablet 10 mg PO DAILY #30 tabs 02/08/24 (Jardiance) furosemide 80 mg tablet 80 mg PO DAILY 90 days #90 tabs 05/21/24 sacubitril 24 mg-valsartan 26 mg 1 tab PO BID #180 tabs 08/20/24 tablet (Entresto) amiodarone 200 mg tablet 200 mg PO DAILY #30 tabs 09/05/24 carvedilol 25 mg tablet 37.5 mg (1.5 x 25 mg) PO BID 90 09/05/24 days #270 tabs Allergies Allergy/AdvReac Type Severity Reaction Status Date / Time No Known Allergies Allergy Verified 10/02/24 09:00 Review of Systems Constitutional: Constitutional: Reports no additional constitutional complaints Cardiovascular: Cardiovascular: Reports no additional cardiovascular complaints Gastrointestinal: Gastrointestinal: Reports no additional gastrointestinal complaints [facility] Past Medical History Attestation statement: The following information was validated with the patient. 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 Mother No problems noted. 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) Alcohol intake: current Alcohol intake frequency: a few times a month Alcohol type: beer Patient Tobacco Use Status: Never used Tobacco Smoked in Last 30 Days: No Use of substances other than those prescribed or required for medical reasons: No Substance Use Type: Marijuana Advance Directives: No Advance Directives Information Provided: Yes service: No Current occupational status: disabled Physical Exam Vital Signs: Vital Signs: Last Vital Signs Temp 98.2 F 10/02/24 14:26 Pulse 69 10/02/24 14:26 Resp 16 10/02/24 14:26 BP 100/57 L 10/02/24 14:26 Pulse Ox 95 10/02/24 14:26 O2 Del Method Room Air 10/02/24 14:26 BMI result Body Mass Index 26.6 MILD DISTRESS TACHYPNEIC Const: General: cooperative Nutritional Appearance: average body habitus Orientation/consciousness: patient oriented x3 HEENT: Head: Yes normal to inspection Face and sinus: Yes normal facial exam Mouth: Normal oral and palatal mucosa present Neck: Neck: Yes normal visual inspection Chest: Chest palpation & inspection: normal inspection of the chest Resp: Auscultation: rales and rhonchi Cardio: Jugular venous distension: no JVD Rate: regular rate Rhythm: regular rhythm GI: Inspection: Yes normal to inspection Palpation (GI): Soft to palpation, not firm and nontender Auscultation: normal bowel sounds Skin: General skin exam: no rashes or lesions noted and elasticity normal Trauma: no lacerations or abrasions Neuro: General: patient oriented x3 Course Reevaluation(s) Reevaluation #1: DOING BETTER CLINICAL PICTURE CONSISTENT WITH CONGESTIVE HEART BY CHEST X-RAY AND ELEVATED BNP, IV LASIX GIVEN, SPOKE WITH HOSPITALIST Time: 16:03 Medications Administered Generic Name Dose Route Start Last Admin Trade Name Freq PRN Reason Stop Dose Admin Sodium Chloride 3 ml 10/02/24 16:00 10/02/24 15:37 0.9 % Sodium Chloride Flush 3 Ml Syringe IVFLUSH 3 ml QSHIFT NATALIIA Administration Discontinued Medications Generic Name Dose Route Start Last Admin Trade Name Freq PRN Reason Stop Dose Admin Furosemide 40 mg 10/02/24 09:35 10/02/24 09:53 Furosemide 40 Mg/4 Ml Vial IVPUSH 10/02/24 09:36 40 mg ONCE ONE Administration Protocol Medical Decision Making Medical Decision Making [facility] Narrative: PATIENT PRESENTED COMPLAINING OF SHORTNESS OF BREATH HISTORY OF CHF WILL DO A CHEST X-RAY LABS Differential Diagnosis Differential Diagnoses: The differential diagnosis associated with the presentation includes CHF/PNEUMONIA Admission/Observation Consideration of admission/observation: Escalation of care including admission/observation considered Consult Healthcare Provider Management of the patient was discussed with: Hospitalist Lab Data 10/02/24 09:46 10/02/24 09:46 Labs: Lab Results 10/02/24 Range/Units 09:46 WBC 10.4 (4.8-10.8) X10*3/uL RBC 4.28 L (4.60-5.80) X10*6/uL Hgb 13.6 L (14.0-18.0) g/dl Hct 40.4 L (42.0-52.0) % MCV 94.4 (80.0-98.0) fL MCH 31.8 (27.0-33.0) pg MCHC 33.7 (31.0-36.0) g/dl RDW 13.8 (11.0-16.0) % Plt Count 236 (160-400) X10*3/uL MPV 10.5 (9.4-12.4) fL Immature Gran % (Auto) 0.4 (0.0-0.4) % Neut % (Auto) 86.2 H (45-73) % Lymph % (Auto) 8.5 L (20-40) % [place] % (Auto) 4.4 (2-11) % Eos % (Auto) 0.1 (0-4) % Baso % (Auto) 0.4 (0-2) % Lymph # (Auto) 0.9 L (1.2-4.9) X10*3/uL [place] # (Auto) 0.5 (0.1-1.2) X10*3/uL Eos # (Auto) 0.0 (0.0-0.4) X10*3/uL Baso # (Auto) 0.0 (0.0-0.2) X10*3/uL Abs Immat Gran (auto) 0.04 H (0.00-0.03) X10*3/uL Absolute Neuts (auto) 8.9 H (2.0-8.3) x10*3/uL Absolute Nucleated RBC 0.000 (0.0-0.012) X10*3/uL Nucleated RBC % (auto) 0.0 (0.0-0.2) /100WBC Sodium 137 (135-145) mmol/L Potassium 5.4 H (3.3-5.1) mmol/L Chloride 99 (96-108) mmol/L Carbon Dioxide 23 (22-29) mmol/L Anion Gap 20 (12-20) BUN 14 (9-16) mg/dL Creatinine 0.91 (0.5-1.4) mg/dL Estim Creat Clear Calc 70.1 Estimated GFR > 60 Random Glucose 102 (60-115) mg/dL Calcium 9.2 (8.4-10.2) mg/dL Total Bilirubin 2.1 H (0.0-1.0) mg/dL AST 28 (5-37) U/L ALT 20 (0-40) U/L Alkaline Phosphatase 63 (39-117) U/L Troponin I High Sens 20.3 D (<3.5-35.0) ng/L B-Natriuretic Peptide 3285 H (<100) pg/mL Total Protein 7.8 (6.5-8.0) g/dL Albumin 4.3 (3.5-5.0) g/dL Influenza Type A (PCR) NEGATIVE (Negative) Influenza Type B (PCR) NEGATIVE (Negative) RSV RNA Qual (PCR) NEGATIVE (Negative) SARS-CoV-2 RNA (RT-PCR) NEGATIVE (Negative) Independent Interpretation I performed an independent interpretation of an: EKG (VENTRICULAR RATE 103 BUNDLE BRANCH BLOCK PATTERN) and Plain X-Ray Radiology Impression Discussion of test interpretation with radiology: I have reviewed the radiologist's reading. Radiologist Impression: TECHNIQUE: Frontal view of the chest was obtained. FINDINGS: Bibasilar infiltrates noted. Heart appears borderline in size but there does appear to be slight distention of the pulmonary vessels. This suggests mild congestive failure with edema. Left-sided pacer stable in position. The distal tip however is not included on the radiograph. XR/XR chest 1V IMPRESSION: Very mild congestive change and right basilar edema. Electronically signed by: Cade Connelly MD 10/02/2024 12:55 PM [facility] Dictated By: Cade Connelly MD Signed By: <Electronically signed by Cade Connelly MD in OV> 10/02/24 0405 Independent Historian Clinical information obtained from an independent historian. History obtained from or confirmed by: Friend External Record Review External record reviewed: Inpatient record Chronic Conditions CARDIOMYOPATHY Discharge Plan Discharge Clinical Impression: CHF (congestive heart failure) Qualifiers: Heart failure type: unspecified Heart failure chronicity: acute on chronic Qualified Code(s): I50.9 - Heart failure, unspecified Patient Disposition: Admitted As Inpatient Print Language: Other
[2024-10-02 09:51] LABS: MANUAL DIFF FLAG NO
[2024-10-02 09:53] LABS: Basophils Percent Auto 0.4 % (0-2); Eosinophils Percent Auto 0.1 % (0-4); Hematocrit 40.4 % (42.0-52.0); Hemoglobin 13.6 g/dl (14.0-18.0); Imm Gran Abs Auto 0.04 X10*3/uL (0.00-0.03); Imm Gran Pct Auto 0.4 % (0.0-0.4); Lymphocytes Absolute Auto 0.9 X10*3/uL (1.2-4.9); Lymphocytes Percent Auto 8.5 % (20-40); Mean Corpuscular HGB Conc 33.7 g/dl (31.0-36.0); Mean Corpuscular Hemoglobin 31.8 pg (27.0-33.0); Mean Corpuscular Volume 94.4 fL (80.0-98.0); Mean Platelet Volume 10.5 fL (9.4-12.4); Monocytes Absolute Auto 0.5 X10*3/uL (0.1-1.2); Monocytes Percent Auto 4.4 % (2-11); Neutrophils Absolute Auto 8.9 x10*3/uL (2.0-8.3); Neutrophils Percent Auto 86.2 % (45-73); Platelet Count 236 X10*3/uL (160-400); Red Blood Count 4.28 X10*6/uL (4.60-5.80); Red Cell Distribution Width 13.8 % (11.0-16.0); White Blood Count 10.4 X10*3/uL (4.8-10.8)
[2024-10-02] MEDS: Furosemide 40 MG/4 ML VIAL IVPUSH ×2 (09:53→20:43)
[2024-10-02 10:17] LABS: B Type Natriuretic Peptide 3285 pg/mL (<100)
[2024-10-02 10:18] LABS: Troponin-I High Sensitivity 20.3 ng/L (<3.5-35.0)
[2024-10-02 10:20] LABS: Alanine Aminotransferase 20 U/L (0-40); Albumin Level 4.3 g/dL (3.5-5.0); Alkaline Phosphatase 63 U/L (39-117); Anion Gap 20 (12-20); Aspartate Amino Transferase 28 U/L (5-37); Bilirubin Total 2.1 mg/dL (0.0-1.0); Blood Urea Nitrogen 14 mg/dL (9-16); Calcium 9.2 mg/dL (8.4-10.2); Carbon Dioxide 23 mmol/L (22-29); Chloride 99 mmol/L (96-108); Creatinine Clr Calc Pharmacy 70.1; Estimated Glomerular Filt Rate > 60; Glucose Random 102 mg/dL (60-115); Potassium 5.4 mmol/L (3.3-5.1); Sodium 137 mmol/L (135-145); Total Protein 7.8 g/dL (6.5-8.0)
[2024-10-02 10:37] LABS: Influenza A PCR NEGATIVE (Negative); Influenza B PCR NEGATIVE (Negative); Resp Syncy Virus RNA Qual PCR NEGATIVE (Negative); SARS COV2 PCR INHOUSE NEGATIVE (Negative)
--- NOTE | 2024-10-02 10:39 | PC.NURSE ---
Pt presents to ED via triage from home, reports SOB and chest pain (substernal) since last night worsening. SOB worsens on exertion and laying flat. Describes chest pain as an aching/ squeezing. Alert and oriented, breathing unlabored while at rest, skin pale and warm.
--- NOTE | 2024-10-02 14:37 | PHA.MEDREC ---
Addendum entered by Michelle Townsend RPh 10/02/24 14:51: reviewed by [facility]. Original Note: Pharmacy Consult ? Medication Reconciliation Pharmacy has completed the medication reconciliation. Spoke to patient through blanchard grinder operator service (Elisabeth) to confirm med list. Patient was able to confirm what he takes. Patient states he is not taking Miralax. Patent says he hasn't took is medication in 3 days.
--- NOTE | 2024-10-02 15:21 | P.HPHOSP_ITS ---
History of Present Illness Date of Service: 10/02/24 Attending physician on admission: Cristobal Ash Chief Complaint: chf 69 y/o M with a past medical history of hypertension, hyperlipidemia, CAD, CHF, history of AICD, presented to the hospital today with a chief complaint of sob- patient did not take his medication from at least 3-4 days, also drinking lot of water, he says he is also getting short of breath from few days which is worsening unable to sleep last night, has orthopnea and PND.? He is not sure if he gained any weight he did not check. In ED: Has BNP of 3285, short of breath, leg edema, chest x-ray shows mild edema ,EKG- sinus tachycardia. Patient received IV Lasix in the ED -produced 1.6 liter urine ,sob seems improving . denies any hx of smoking or etoh or recreational drug use. Denies new complaint of chest pain or abdominal pain or fever or chills or nausea or vomiting or cough or weakness or numbness. Review of Systems 2 Review of Systems: as above. Yes all other systems are reviewed and are negative [facility] Medical History Anomalous coronary artery origin Atherosclerotic cardiovascular disease Heart failure with reduced ejection fraction HLD (hyperlipidemia) Acute on chronic combined systolic and diastolic CHF (congestive heart failure) Nonischemic cardiomyopathy CAD (coronary artery disease) ICD (implantable cardioverter-defibrillator) in place Hypertension Pacemaker Family History Father No problems noted. Mother No problems noted. 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) Alcohol intake: current Alcohol intake frequency: a few times a month Alcohol type: beer Patient Tobacco Use Status: Never used Tobacco Smoked in Last 30 Days: No Use of substances other than those prescribed or required for medical reasons: No Substance Use Type: Marijuana Advance Directives: No Advance Directives Information Provided: Yes service: No Current occupational status: disabled Meds Allergies Allergy/AdvReac Type Severity Reaction Status Date / Time No Known Allergies Allergy Verified 10/02/24 09:00 Active Medications: Current Medications Acetaminophen (Acetaminophen 325 Mg Tablet) 650 mg PO Q6H PRN PRN Reason: Pain, Mild (Pain Scale 1-3), fever or headache Calcium Carbonate (Calcium Carbonate 750 Mg Tab.Chew) 750 mg PO Q4H PRN PRN Reason: Heartburn Furosemide (Furosemide 40 Mg/4 Ml Vial) 40 mg IVPUSH BID NATALIIA; Protocol Magnesium Hydroxide (Milk Of Magnesia 30 Ml Oral.Susp) 30 ml PO DAILY PRN PRN Reason: Constipation Melatonin (Melatonin 3 Mg Tablet) 6 mg PO BEDTIME PRN PRN Reason: Insomnia Sodium Chloride (0.9 % Sodium Chloride Flush 3 Ml Syringe) 3 ml IVFLUSH QSHIFT NATALIIA Home Medications ?Medication ?Instructions ?Recorded ?Confirmed ?Last Taken ?Type aspirin 81 mg tablet,delayed 81 mg PO DAILY 08/18/20 10/02/24 09/29/24 History release (Adult Low Dose Aspirin) ezetimibe 10 mg tablet 10 mg PO DAILY 08/18/20 10/02/24 09/29/24 History rosuvastatin 40 mg tablet 40 mg PO BEDTIME 08/18/20 10/02/24 09/29/24 History digoxin 250 mcg (0.25 mg) tablet 250 mcg PO DAILY 10/02/24 10/02/24 09/29/24 History ivabradine 5 mg tablet (Corlanor) 5 mg PO BID 10/02/24 10/02/24 09/29/24 History omeprazole 40 mg capsule,delayed 40 mg PO DAILY PRN Acid Reflux 10/02/24 10/02/24 09/29/24 History release Physical Exam 2 Vital Signs and Narrative: Vital Signs: Last Vital Signs Temp 98.2 F 10/02/24 14:26 Pulse 69 10/02/24 14:26 Resp 16 10/02/24 14:26 BP 100/57 L 10/02/24 14:26 Pulse Ox 95 10/02/24 14:26 O2 Del Method Room Air 10/02/24 14:26 BMI result Body Mass Index 26.6 Appearance: Alert.? Oriented X3.? sob? cvs: rrr, [id number] , no murmur res: air entry diminshed ,has rales at bases. abd: no rebound or guarding ,nt, bs present. ext pulses present , no cyanosis , 2+ edema . neuro: axo3 , nonfocal. Results Labs 10/02/24 09:46 10/02/24 09:46 Labs: Laboratory Results - last 24 hr 10/02/24 09:46 MCV 94.4 MCH 31.8 MCHC 33.7 RDW 13.8 Plt Count 236 MPV 10.5 Immature Gran % (Auto) 0.4 Neut % (Auto) 86.2 H Lymph % (Auto) 8.5 L [place] % (Auto) 4.4 Eos % (Auto) 0.1 Baso % (Auto) 0.4 Lymph # (Auto) 0.9 L [place] # (Auto) 0.5 Eos # (Auto) 0.0 Baso # (Auto) 0.0 Abs Immat Gran (auto) 0.04 H Absolute Neuts (auto) 8.9 H Absolute Nucleated RBC 0.000 Nucleated RBC % (auto) 0.0 Anion Gap 20 Estim Creat Clear Calc 70.1 Estimated GFR > 60 Random Glucose 102 Calcium 9.2 Total Bilirubin 2.1 H AST 28 ALT 20 Alkaline Phosphatase 63 Troponin I High Sens 20.3 D B-Natriuretic Peptide 3285 H Total Protein 7.8 Albumin 4.3 Influenza Type A (PCR) NEGATIVE Influenza Type B (PCR) NEGATIVE RSV RNA Qual (PCR) NEGATIVE SARS-CoV-2 RNA (RT-PCR) NEGATIVE Imaging Radiologist's Impressions: Impressions Chest X-Ray 10/02/24 10:15 IMPRESSION: Very mild congestive change and right basilar edema. Electronically signed by: Cade Connelly MD 10/02/2024 12:55 PM [facility] [place] and Plan (1) CHF (congestive heart failure): Qualifiers: Heart failure chronicity: acute on chronic Heart failure type: u nspecified Qualified Code(s): I50.9 - Heart failure, unspecified Status: Acute 69 y/o M with a past medical history of hypertension, hyperlipidemia, CAD, CHF, history of AICD, presented to the hospital today with a chief complaint of sob: Acute on chronic combined systolic and diastolic CHF execerebation: sob somewhat improivng after iv lasix eleavted bnp,pnd, orthopnea plan: moniter i/o lasix 40 mg iv bid,will add his other meds when med reconcilliation done. cardiology eval Htn: stable continue meds for chf,continue iv lasix . hx of cad: continue asa,statin. hlp: continue statin. hx of aicd: continue to moniter on tele dvt prophylax: s/c lovenox Patient will benfit from at least 2 midnight stays considering chf execerbation- need iv lasix ,i/o monitering as well as monitering renal function/elecatrolytes. Above management discussed with the patient detail length with the help of spanish interpreter/translator he understand in agreement with the above plan, time spent 70 minute, patient full code. Quality Stroke Does the patient have a stroke diagnosis?: No VTE Prior VTE?: No VTE Risk Level:: Medical - moderate - high VTE Device Contraindication: N/A - Device Ordered VTE Drug Contraindication: N/A - Med Ordered
[2024-10-02] MEDS: 0.9 % Sodium Chloride Flush 3 ML SYRINGE IVFLUSH ×2 (15:37→22:53)
[2024-10-02] MEDS: Aspirin Enteric Coated 81 MG TABLET.DR PO (16:14)
[2024-10-02] MEDS: Amiodarone HCL 200 MG TABLET PO (16:14)
[2024-10-02] MEDS: Ezetimibe 10 MG TABLET PO (16:14)
[2024-10-02] MEDS: Digoxin 0.25 MG TABLET PO (16:38)
[2024-10-02] MEDS: Enoxaparin Sodium 40 MG/0.4 ML SYRINGE SUBCUT (16:40)
--- NOTE | 2024-10-02 17:12 | MHC.CM.ED ---
HCP completed per patient request. Reviewed, completed and signed. Copies given. Uploaded into [facility] and [facility].
[2024-10-02] MEDS: carvediloL 12.5 MG TABLET 37.5 MG PO (20:42)
[2024-10-02] MEDS: Atorvastatin Calcium 80 MG TABLET PO (20:42)
[2024-10-02] MEDS: Sacubitril/Valsartan 24/26 1 TAB TABLET PO (22:51)
[2024-10-03] VITALS (11 sets, daily range): BP systolic 72–104; BP diastolic 46–60; PULSE 57–72; RESP 16–20; TEMP 36.3–37.3; O2SAT 93–96; BMI 26.6
[2024-10-03] MEDS: 0.9 % Sodium Chloride 500 ML IV (00:58)
[2024-10-03] MEDS: 0.9 % Sodium Chloride 250 ML 999 ML IV (02:15)
--- NOTE | 2024-10-03 04:06 | PC.NURSE ---
Addendum entered by Kathryn Solares RN 10/03/24 06:23: Patient received Midodrine 10 mg po at 0420, BP rechecked and is 102/52, P 62. Original Note: 0000 Patient's BP 72/46 , asymptomatic. Provider notified, 500 ml bolus of NS ordered. Following the bolus BP 83/50. An additional 250 ml NS bolus ordered. BP is now 88/50 . Patient states he feels better than he has in recent days. No symptoms noted, patient denies SOB, dizziness or chest pain. Will continue to monitor . Provider updated.
[2024-10-03] MEDS: Midodrine HCl 10 MG TABLET PO ×3 (04:19→17:24)
[2024-10-03 06:43] LABS: Digoxin 0.3 ng/mL (0.8-2.0)
[2024-10-03 06:47] LABS: Anion Gap 14 (12-20); Blood Urea Nitrogen 21 mg/dL (9-16); Calcium 8.6 mg/dL (8.4-10.2); Carbon Dioxide 23 mmol/L (22-29); Chloride 100 mmol/L (96-108); Creatinine Clr Calc Pharmacy 89.7; Estimated Glomerular Filt Rate > 60; Glucose Random 88 mg/dL (60-115); Potassium 3.7 mmol/L (3.3-5.1); Sodium 133 mmol/L (135-145)
[2024-10-03 06:48] LABS: B Type Natriuretic Peptide 1208 pg/mL (<100)
--- NOTE | 2024-10-03 08:38 | MHC.CM.PN ---
CM met with Patient at bedside and addressed IMM with him, providing Patient with the original and a copy has been placed on the chart. 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 Home/resume said services is the goal and CM has initiated and will follow for dc planning. PCP is Dr. Imelda Sepulveda and SHREDDING MACHINE KNIFE CHANGER will transport to home. Patient's Nephew/Magno is the HCP.
[2024-10-03] MEDS: Aspirin Enteric Coated 81 MG TABLET.DR PO (09:16)
[2024-10-03] MEDS: Ezetimibe 10 MG TABLET PO (09:17)
[2024-10-03] MEDS: 0.9 % Sodium Chloride Flush 3 ML SYRINGE IVFLUSH ×2 (09:17→17:24)
[2024-10-03] MEDS: Amiodarone HCL 200 MG TABLET PO (09:17)
[2024-10-03] MEDS: Digoxin 0.25 MG TABLET PO (09:17)
[2024-10-03] MEDS: Empagliflozin 10 MG TABLET PO (09:17)
--- NOTE | 2024-10-03 11:53 | MHC.CM.PN ---
EMR REVIEWED, PT W/HYPOXIA/CHF EXAC/ETOH, PER HOSPITALIST PT NOT YET READY FOR DC, ANTIC PT WILL RETURN TO STREET ONCE MEDICALLY CLEARED PT IS DECLINING PLACEMENT, CM WILL CONT TO FOLLOW DC NEEDS.
--- NOTE | 2024-10-03 14:05 | P.CONCA_ITS ---
History of Present Illness History of Present Illness Date of Service: 10/03/24 Requesting physician: Cristobal Ash Consult reason: congestive heart failure Chief complaint: CHF excerebation Narrative: I was consulted to see [place] in cardiology consultation for decompensated congestive heart failure. Patient was 69-year-old male with prior history of heart failure with reduced ejection fraction with severe LV systolic dysfunction well controlled for long period time doing well, recently seen in the office and was noted to have elevated heart rate in his carvedilol was increased to 37.5 mg b.i.d.. Few days ago he stopped taking all his medication for unclear reasons. He said he just intake it and then over the next 2 days gradually got more and more short of breath and then start getting orthopnea PND and leg swelling. He came to the hospital and was noted to be in decompensated congestive heart failure with BNP in the 3200 range. His baseline BNP is in the mid 300 range. Patient was then admitted and started on diuresis. He has diureed well in his BNP is reduced to 1200. His blood pressure is noted on the lower side. He denies any lightheadedness, syncope. Realizes his mistake and said he will not do it again. Did not have any chest pain. Did not have any irregular heartbeat or fast heart rate. No high salt diet. Review of Systems 2 Constitutional: Constitutional: Reports fatigue and Reports weakness Eyes: Eyes: Reports no additional eye complaints Cardiovascular: Cardiovascular: Denies chest pain, Reports leg edema, Denies lightheadedness, Denies Loss of Consciousness, Denies palpitations, Reports dyspnea on exertion and Reports orthopnea Respiratory: Respiratory: Reports no additional respiratory complaints and Reports dyspnea on exertion Gastrointestinal: Gastrointestinal: Reports no additional gastrointestinal complaints Genitourinary: Genitourinary: Reports no additional male genitourinary complaints Musculoskeletal: Musculoskeletal: Reports no additional musculoskeletal complaints Neurologic: Reports system reviewed and no additional complaints, except as documented and Reports weakness Psychiatric: Psychiatric: Reports no additional psychiatric complaints Endocrine: Endocrine: Reports no additional endocrine complaints, Reports fatigue and Denies palpitations [facility] Past Medical History Medical History (Updated 10/03/24 @ 14:09 by Nash Anne MD) 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 Mother No problems noted. Surgical History Surgical History Hx of cardiac catheterization Social History Social History Household Members: None Housing: Apartment Do you presently have visiting nurse or other home services: Yes Alcohol intake: current Alcohol intake frequency: a few times a month Alcohol type: beer Patient Tobacco Use Status: Never used Tobacco Smoked in Last 30 Days: No e-Cigarette/Vaping Use: Never Used Patient Interested in Nicotine Replacement: No Patient Given Instructions on How to Stop Smoking: No Second Hand Smoke Exposure: No Use of substances other than those prescribed or required for medical reasons: No Substance Use Type: Marijuana Currently Displaying Signs/Symptoms of Drug Intoxication Withdrawal: No Any prior treatment program specific to substance use: No Have you been hit, kicked, punched, or otherwise hurt by someone within the past year? If so, by whom?: No Do you feel safe in your current relationship?: No Current Relationship Is there a partner from a previous relationship who is making you feel unsafe now?: No Are you made to feel afraid or neglected: No Advance Directives: No Advance Directives Information Provided: Yes Do you have a plan to hurt others: No Plan Recently lost weight without trying: No Eating poorly because of decreased appetite: No Nutrition Risks: No Nutritional Risk Poor oral hygiene: No service: No Current occupational status: disabled Meds Allergies Allergy/AdvReac Type Severity Reaction Status Date / Time No Known Allergies Allergy Verified 10/02/24 09:00 Active Medications: Current Medications Acetaminophen (Acetaminophen 325 Mg Tablet) 650 mg PO Q6H PRN PRN Reason: Pain, Mild (Pain Scale 1-3), fever or headache Amiodarone HCl (Amiodarone Hcl 200 Mg Tablet) 200 mg PO DAILY [facility] Last Admin: 10/03/24 09:17 Dose: 200 mg Aspirin (Aspirin Enteric Coated 81 Mg Tablet.Dr) 81 mg PO DAILY [facility] Last Admin: 10/03/24 09:16 Dose: 81 mg Atorvastatin Calcium (Atorvastatin Calcium 80 Mg Tablet) 80 mg PO BEDTIME [facility] Last Admin: 10/02/24 20:42 Dose: 80 mg Calcium Carbonate (Calcium Carbonate 750 Mg Tab.Chew) 750 mg PO Q4H PRN PRN Reason: Heartburn Carvedilol (Carvedilol 12.5 Mg Tablet) 37.5 mg PO BID [facility]; Protocol Last Admin: 10/02/24 20:42 Dose: 37.5 mg Digoxin (Digoxin 0.25 Mg Tablet) 0.25 mg PO DAILY [facility]; Protocol Last Admin: 10/03/24 09:17 Dose: 0.25 mg Ezetimibe (Ezetimibe 10 Mg Tablet) 10 mg PO DAILY [facility] Last Admin: 10/03/24 09:17 Dose: 10 mg Empagliflozin (Empagliflozin 10 Mg Tablet) 10 mg PO DAILY [facility] Last Admin: 10/03/24 09:17 Dose: 10 mg Enoxaparin Sodium (Enoxaparin Sodium 40 Mg/0.4 Ml Syringe) 40 mg SUBCUT Q24H [facility] Last Admin: 10/02/24 16:40 Dose: 40 mg Magnesium Hydroxide (Milk Of Magnesia 30 Ml Oral.Susp) 30 ml PO DAILY PRN PRN Reason: Constipation Melatonin (Melatonin 3 Mg Tablet) 6 mg PO BEDTIME PRN PRN Reason: Insomnia Midodrine (Midodrine Hcl 10 Mg Tablet) 10 mg PO TID@0800,1300,1800 [facility] Last Admin: 10/03/24 13:55 Dose: 10 mg Non-Formulary Medication (Ivabradine [Corlanor]) 5 mg PO BID [facility] Omeprazole (Omeprazole 40 Mg Capsule.Dr) 40 mg PO DAILY PRN PRN Reason: Acid Reflux Sacubitril/Valsartan (Sacubitril/Valsartan 1 Tab Tablet) 1 tab PO BID [facility]; Protocol Last Admin: 10/02/24 22:51 Dose: 1 tab Sodium Chloride (0.9 % Sodium Chloride Flush 3 Ml Syringe) 3 ml IVFLUSH QSHIFT [facility] Last Admin: 10/03/24 09:17 Dose: 3 ml Home Medications ?Medication ?Instructions ?Recorded ?Confirmed ?Last Taken ?Type aspirin 81 mg tablet,delayed 81 mg PO DAILY 08/18/20 10/02/24 09/29/24 History release (Adult Low Dose Aspirin) ezetimibe 10 mg tablet 10 mg PO DAILY 08/18/20 10/02/24 09/29/24 History rosuvastatin 40 mg tablet 40 mg PO BEDTIME 08/18/20 10/02/24 09/29/24 History digoxin 250 mcg (0.25 mg) tablet 250 mcg PO DAILY 10/02/24 10/02/24 09/29/24 History ivabradine 5 mg tablet (Corlanor) 5 mg PO BID 10/02/24 10/02/24 09/29/24 History omeprazole 40 mg capsule,delayed 40 mg PO DAILY PRN Acid Reflux 10/02/24 10/02/24 09/29/24 History release Physical Exam 2 Vital Signs: Vital Signs: Last Vital Signs Temp 98.0 F 10/03/24 11:03 Pulse 68 10/03/24 11:03 Resp 18 10/03/24 11:03 BP 100/58 L 10/03/24 11:03 Pulse Ox 95 10/03/24 11:03 O2 Del Method Room Air 10/03/24 11:03 BMI result Body Mass Index 26.6 Const: General: cooperative, comfortable, no acute distress and awake N utritional Appearance: average body habitus Orientation/consciousness: p atient oriented x3 Limitations: no limitations HEENT: Head: Yes normocephalic and Yes atraumatic Neck: Neck: Yes trachea midline, Yes supple and Yes no JVD Resp: Effort & Inspection: normal respiratory effort Auscultation: crackles on the left at the base Cardio: Jugular venous distension: no JVD Palpation: abnormal PMI displaced PMI Rate: regular rate Rhythm: abnormal rhythm with ectopic beats H eart sounds: S1 normal heart sound present, S2 normal heart sound present, no click, Gallop heart sound present S3 gallop, no murmurs and no rubs GI: Auscultation: normal bowel sounds Skin: General skin exam: no rashes or lesions noted Neuro: General: patient oriented x3 and no focal motor deficits Extrem: General: No clubbing, No cyanosis and No edema Objective Labs and Meds 10/02/24 09:46 10/03/24 06:02 Lab results: Laboratory Results - last 24 hr 10/03/24 06:02 Sodium 133 L Potassium 3.7 D Chloride 100 Carbon Dioxide 23 Anion Gap 14 BUN 21 H Creatinine 0.79 Estim Creat Clear Calc 89.7 Estimated GFR > 60 Random Glucose 88 Calcium 8.6 D B-Natriuretic Peptide 1208 H Digoxin 0.3 L Assessment and Plan (1) Acute decompensated heart failure: Status: Acute Patient presents with acute decompensated congestive heart failure due to self withdrawal of his guideline based medical therapy with good control of heart failure as outpatient. Patient decompensated congestive heart failure still remains fluid overload with crackles in his left base. BNP is downtrending but not at baseline. Continue IV diuresis for 1 more day. Noted softer blood pressure. Will reduce his carvedilol to 25 mg b.i.d.. Continue all other guideline based medical therapy including Entresto, Jardiance, spironolactone, Corlanor. Continue amiodarone to suppress ventricular arrhythmias. Continue monitor blood pressure closely. Strict intake and output chart needs to be pursued. Follow-up BMP and BNP tomorrow. Patient understands his mistake and says he would not going to do this again. Will follow with him tomorrow Procedures Date of Service Date of Service: 10/03/24
--- NOTE | 2024-10-03 14:19 | HO.PM.IMPN ---
Subjective Subjective Date of Service: 10/03/24 Interval History: chf excerebation Review of Systems sob seems improving no fever Physical Exam Vital Signs: Vital Signs: Last Vital Signs Temp 98.0 F 10/03/24 11:03 Pulse 68 10/03/24 11:03 Resp 18 10/03/24 11:03 BP 100/58 L 10/03/24 11:03 Pulse Ox 95 10/03/24 11:03 O2 Del Method Room Air 10/03/24 11:03 BMI result Body Mass Index 26.6 Appearance: Alert.? Oriented X3.? sob? cvs: rrr, [id number] , no murmur res: air entry diminshed ,has rales at bases. abd: no rebound or guarding ,nt, bs present. ext pulses present , no cyanosis , 2+ edema . neuro: axo3 , nonfocal. Objective Data Active Medications Acetaminophen (Acetaminophen 325 Mg Tablet) 650 mg PO Q6H PRN PRN Reason: Pain, Mild (Pain Scale 1-3), fever or headache Amiodarone HCl (Amiodarone Hcl 200 Mg Tablet) 200 mg PO DAILY [facility] Last Admin: 10/03/24 09:17 Dose: 200 mg Documented By: ISABELA Aspirin (Aspirin Enteric Coated 81 Mg Tablet.) 81 mg PO DAILY [facility] Last Admin: 10/03/24 09:16 Dose: 81 mg Documented By: ISABELA Atorvastatin Calcium (Atorvastatin Calcium 80 Mg Tablet) 80 mg PO BEDTIME [facility] Last Admin: 10/02/24 20:42 Dose: 80 mg Documented By: KETAN Calcium Carbonate (Calcium Carbonate 750 Mg Tab.Chew) 750 mg PO Q4H PRN PRN Reason: Heartburn Carvedilol (Carvedilol 12.5 Mg Tablet) 37.5 mg PO BID [facility]; Protocol Last Admin: 10/02/24 20:42 Dose: 37.5 mg Documented By: KETAN Digoxin (Digoxin 0.25 Mg Tablet) 0.25 mg PO DAILY [facility]; Protocol Last Admin: 10/03/24 09:17 Dose: 0.25 mg Documented By: ISABELA Ezetimibe (Ezetimibe 10 Mg Tablet) 10 mg PO DAILY [facility] Last Admin: 10/03/24 09:17 Dose: 10 mg Documented By: ISABELA Empagliflozin (Empagliflozin 10 Mg Tablet) 10 mg PO DAILY [facility] Last Admin: 10/03/24 09:17 Dose: 10 mg Documented By: ISABELA Enoxaparin Sodium (Enoxaparin Sodium 40 Mg/0.4 Ml Syringe) 40 mg SUBCUT Q24H [facility] Last Admin: 10/02/24 16:40 Dose: 40 mg Documented By: SMOOTH Magnesium Hydroxide (Milk Of Magnesia 30 Ml Oral.Susp) 30 ml PO DAILY PRN PRN Reason: Constipation Melatonin (Melatonin 3 Mg Tablet) 6 mg PO BEDTIME PRN PRN Reason: Insomnia Midodrine (Midodrine Hcl 10 Mg Tablet) 10 mg PO TID@0800,1300,1800 [facility] Last Admin: 10/03/24 13:55 Dose: 10 mg Documented By: ISABELA Non-Formulary Medication (Ivabradine [Corlanor]) 5 mg PO BID [facility] Omeprazole (Omeprazole 40 Mg Capsule.Dr) 40 mg PO DAILY PRN PRN Reason: Acid Reflux Sacubitril/Valsartan (Sacubitril/Valsartan 1 Tab Tablet) 1 tab PO BID [facility]; Protocol Last Admin: 10/02/24 22:51 Dose: 1 tab Documented By: EUN Sodium Chloride (0.9 % Sodium Chloride Flush 3 Ml Syringe) 3 ml IVFLUSH QSHIFT [facility] Last Admin: 10/03/24 09:17 Dose: 3 ml Documented By: ISABELA Labs 10/02/24 09:46 10/03/24 06:02 Labs: Laboratory Results - last 24 hr 10/03/24 06:02 Anion Gap 14 Estim Creat Clear Calc 89.7 Estimated GFR > 60 Random Glucose 88 Calcium 8.6 D B-Natriuretic Peptide 1208 H Digoxin 0.3 L Assessment and Plan (1) Acute decompensated heart failure: Status: Acute Plan 69 y/o M with a past medical history of hypertension, hyperlipidemia, CAD, CHF, history of AICD, presented to the hospital today with a chief complaint of sob: Acute on chronic combined systolic and diastolic CHF execerebation: sob somewhat improivng after iv lasix eleavted bnp,pnd, orthopnea plan: moniter i/o hold bp meds -overnight received iv fluids (500+250: 750 ml),he is also started on midodrine will continue iv lasix -hold coreg /bp meds for today Htn: stable continue meds for chf,continue iv lasix . hx of cad: continue asa,statin. hlp: continue statin. hx of aicd: continue to moniter on tele dvt prophylax: s/c lovenox ongoing need sconsidering chf execerbation-need iv lasix ,i/o monitering as well as monitering renal function/electrolytes. Quality Stroke Does the patient have a stroke diagnosis?: No VTE Prior VTE?: No VTE Risk Level:: Medical - moderate - high VTE Device Contraindication: N/A - Device Ordered VTE Drug Contraindication: N/A - Med Ordered
[2024-10-03] MEDS: Enoxaparin Sodium 40 MG/0.4 ML SYRINGE SUBCUT (17:24)
--- NOTE | 2024-10-03 20:07 | PM.EVENT ---
Event Note Date of Service: 10/03/24 Event Note: 12:34 am - BP 72/46, negative balance of 2,200 ml after Lasix, total of 750 ml NS given, BP improved. Adequate MAP. No symptoms. No concern for sepsis. Time Spent With Patient Time: Total time managing care of this patient today ____ minutes.
[2024-10-03] MEDS: Atorvastatin Calcium 80 MG TABLET PO (20:09)
[2024-10-04] VITALS (8 sets, daily range): BP systolic 94–112; BP diastolic 56–68; PULSE 67–74; RESP 16–18; TEMP 36.3–37.1; O2SAT 96–98; BMI 26.4
[2024-10-04] MEDS: 0.9 % Sodium Chloride Flush 3 ML SYRINGE IVFLUSH ×4 (00:34→21:36)
[2024-10-04] MEDS: Aspirin Enteric Coated 81 MG TABLET.DR PO (08:18)
[2024-10-04] MEDS: Digoxin 0.25 MG TABLET PO (08:18)
[2024-10-04] MEDS: Empagliflozin 10 MG TABLET PO (08:18)
[2024-10-04] MEDS: Amiodarone HCL 200 MG TABLET PO (08:18)
[2024-10-04] MEDS: Ezetimibe 10 MG TABLET PO (08:18)
[2024-10-04] MEDS: Midodrine HCl 10 MG TABLET PO (08:18)
[2024-10-04] MEDS: Furosemide 40 MG TABLET PO (08:19)
[2024-10-04] MEDS: carvediloL 25 MG TABLET PO (08:19)
[2024-10-04 09:41] LABS: Anion Gap 13 (12-20); B Type Natriuretic Peptide 1468 pg/mL (<100); Blood Urea Nitrogen 17 mg/dL (9-16); Calcium 9.5 mg/dL (8.4-10.2); Carbon Dioxide 23 mmol/L (22-29); Chloride 105 mmol/L (96-108); Creatinine Clr Calc Pharmacy 77.8; Estimated Glomerular Filt Rate > 60; Glucose Random 92 mg/dL (60-115); Potassium 4.4 mmol/L (3.3-5.1); Sodium 137 mmol/L (135-145)
--- NOTE | 2024-10-04 09:56 | PM.PNCARD ---
Subjective Subjective Date of Service: 10/04/24 Principal diagnosis: Low blood pressure, severe cardiomyopathy, acute heart failure. Interval history: Patient yesterday had significantly low blood pressure which concerned the overnight physician. Was given bolus of 750 cc normal saline along with midodrine. Patient's blood pressure improved and this morning is 110 systolic. Patient had no symptoms yesterday of lightheadedness after talking to him. Patient denies any shortness of breath. Feeling well. Overall positive balance. Review of Systems Constitutional: Reports no additional constitutional complaints Cardiovascular: Reports no additional cardiovascular complaints, Denies syncope, Denies leg edema and Denies lightheadedness Respiratory: Reports no additional respiratory complaints Denies syncope Physical Exam Vital Signs: Last Vital Signs Temp 98.7 F 10/04/24 07:06 Pulse 68 10/04/24 08:19 Resp 18 10/04/24 07:06 BP 110/68 10/04/24 08:18 Pulse Ox 97 10/04/24 07:06 O2 Del Method Room Air 10/04/24 07:06 BMI result Body Mass Index 26.4 Const General: cooperative, comfortable, alert and awake Nutritional Appearance: average body habitus Orientation/consciousness: patient oriented x3 Neck Neck: Yes trachea midline, Yes supple and Yes no JVD Resp Effort & Inspection: normal respiratory effort Auscultation: clear to auscultation bilaterally Cardio Jugular venous distension: no JVD Palpation: abnormal PMI displaced PMI Rate: regular rate Rhythm: regular rhythm Heart sounds: S1 normal heart sound present, S2 normal heart sound present, no click, no gallops and no murmurs GI Auscultation: normal bowel sounds Neuro General: patient oriented x3 and no focal motor deficits Extrem General: Yes no clubbing, cyanosis or edema Objective Labs and Meds 10/02/24 09:46 10/04/24 09:05 Lab results: Laboratory Results - last 24 hr 10/04/24 09:05 Sodium 137 Potassium 4.4 Chloride 105 Carbon Dioxide 23 Anion Gap 13 BUN 17 H Creatinine 0.82 Estim Creat Clear Calc 77.8 Estimated GFR > 60 Random Glucose 92 Calcium 9.5 D B-Natriuretic Peptide 1468 H Hold Green Top Cancelled Hold Yellow Top Cancelled Progress Note: A&P Assessment and plan (1) Acute decompensated heart failure: Status: Acute Assessment and Plan: Patient admitted with acute decompensated congestive heart failure, clinically doing well and his lungs have cleared up. He does not have any symptoms of heart failure. Although now he is not able to tolerate neurohormonal modulation. Question worsening LV function and advancing heart failure syndrome. Patient admitted with heart failure due to his not take his medications. I asked him why he was not taking his medication, he had no apparent side effects at home. At this point time will hold off on reinitiating all his medications. Will only start him on carvedilol at a lower dose 6.25 mg b.i.d.. Hold off on Entresto as well as Aldactone therapy for now. Continue Jardiance and p.o. Lasix. Strict intake and output chart needs to be pursued. Ambulate as tolerated. Will follow tomorrow, repeat blood work tomorrow to assess BNP as well as BNP. (2) Ventricular arrhythmia: Status: Acute Assessment and Plan: Ventricular arrhythmias in the past, suppressed on amiodarone therapy. Continue the same. Continue full disclosure cardiac monitoring. Will follow with you Time Spent With Patient Time: Total time managing care of this patient today ____ minutes. Progress Note: Quality Stroke Does the patient have a stroke diagnosis?: No Procedures Date of Service Date of Service: 10/04/24
--- NOTE | 2024-10-04 13:11 | P.PNIM_ITS ---
Subjective Subjective Date of Service: 10/04/24 Interval History: chf excerebation Review of Systems sob seems improving,no fever Physical Exam 2 Vital Signs: Vital Signs: Last Vital Signs Temp 97.8 F 10/04/24 10:59 Pulse 69 10/04/24 10:59 Resp 18 10/04/24 10:59 BP 98/60 10/04/24 10:59 Pulse Ox 97 10/04/24 10:59 O2 Del Method Room Air 10/04/24 10:59 BMI result Body Mass Index 26.4 Appearance: Alert.? Oriented X3.? cvs: rrr, [id number] , no murmur res: air entry diminshed ,has rales at bases. abd: no rebound or guarding ,nt, bs present. ext pulses present , no cyanosis , 2+ edema . neuro: axo3 , nonfocal. Objective Data Active Medications Acetaminophen (Acetaminophen 325 Mg Tablet) 650 mg PO Q6H PRN PRN Reason: Pain, Mild (Pain Scale 1-3), fever or headache Amiodarone HCl (Amiodarone Hcl 200 Mg Tablet) 200 mg PO DAILY [facility] Last Admin: 10/04/24 08:18 Dose: 200 mg Documented By: BRANDIE Aspirin (Aspirin Enteric Coated 81 Mg Tablet.) 81 mg PO DAILY [facility] Last Admin: 10/04/24 08:18 Dose: 81 mg Documented By: BRANDIE Atorvastatin Calcium (Atorvastatin Calcium 80 Mg Tablet) 80 mg PO BEDTIME [facility] Last Admin: 10/03/24 20:09 Dose: 80 mg Documented By: EUN Calcium Carbonate (Calcium Carbonate 750 Mg Tab.Chew) 750 mg PO Q4H PRN PRN Reason: Heartburn Carvedilol (Carvedilol 6.25 Mg Tablet) 6.25 mg PO BID [facility]; Protocol Last Admin: 10/04/24 09:48 Dose: Not Given Documented By: BRANDIE Non-Admin Reason: Physician Approved Digoxin (Digoxin 0.25 Mg Tablet) 0.25 mg PO DAILY [facility]; Protocol Last Admin: 10/04/24 08:18 Dose: 0.25 mg Documented By: BRANDIE Ezetimibe (Ezetimibe 10 Mg Tablet) 10 mg PO DAILY [facility] Last Admin: 10/04/24 08:18 Dose: 10 mg Documented By: BRANDIE Empagliflozin (Empagliflozin 10 Mg Tablet) 10 mg PO DAILY [facility] Last Admin: 10/04/24 08:18 Dose: 10 mg Documented By: BRANDIE Enoxaparin Sodium (Enoxaparin Sodium 40 Mg/0.4 Ml Syringe) 40 mg SUBCUT Q24H [facility] Last Admin: 10/03/24 17:24 Dose: 40 mg Documented By: ISABELA Furosemide (Furosemide 40 Mg Tablet) 40 mg PO BID@0900,1800 [facility]; Protocol Last Admin: 10/04/24 08:19 Dose: 40 mg Documented By: BRANDIE Magnesium Hydroxide (Milk Of Magnesia 30 Ml Oral.Susp) 30 ml PO DAILY PRN PRN Reason: Constipation Melatonin (Melatonin 3 Mg Tablet) 6 mg PO BEDTIME PRN PRN Reason: Insomnia Non-Formulary Medication (Ivabradine [Corlanor]) 5 mg PO BID [facility] Omeprazole (Omeprazole 40 Mg Capsule.Dr) 40 mg PO DAILY PRN PRN Reason: Acid Reflux Sacubitril/Valsartan (Sacubitril/Valsartan 1 Tab Tablet) 1 tab PO BID [facility]; Protocol Last Admin: 10/02/24 22:51 Dose: 1 tab Documented By: EUN Sodium Chloride (0.9 % Sodium Chloride Flush 3 Ml Syringe) 3 ml IVFLUSH QSHIFT [facility] Last Admin: 10/04/24 08:19 Dose: 3 ml Documented By: BRANDIE Labs 10/02/24 09:46 10/04/24 09:05 Labs: Laboratory Results - last 24 hr 10/04/24 09:05 Anion Gap 13 Estim Creat Clear Calc 77.8 Estimated GFR > 60 Random Glucose 92 Calcium 9.5 D B-Natriuretic Peptide 1468 H Hold Green Top Cancelled Hold Yellow Top Cancelled Assessment and Plan (1) Acute decompensated heart failure: Status: Acute Plan 69 y/o M with a past medical history of hypertension, hyperlipidemia, CAD, CHF, history of AICD, presented to the hospital today with a chief complaint of sob: Acute on chronic combined systolic and diastolic CHF execerebation: sob somewhat improivng after iv lasix eleavted bnp,pnd, orthopnea plan: moniter i/o adjusted coreg 6.25 ,hold entersto for now stop midorine. Htn: stable continue meds for chf,switched to po lasix . hx of cad: continue asa,statin. hlp: continue statin. hx of aicd: continue to moniter on tele dvt prophylax: s/c lovenox ongoing need sconsidering chf execerbation-need iv lasix,bp meds adjustemnt and labile bp ,i/o bp as wellas monitering renal function/electrolytes. Quality Stroke Does the patient have a stroke diagnosis?: No VTE Prior VTE?: No VTE Risk Level:: Medical - moderate - high VTE Device Contraindication: N/A - Device Ordered VTE Drug Contraindication: N/A - Med Ordered
[2024-10-04] MEDS: Enoxaparin Sodium 40 MG/0.4 ML SYRINGE SUBCUT (17:05)
[2024-10-04] MEDS: Atorvastatin Calcium 80 MG TABLET PO (21:36)
[2024-10-05] VITALS: BP 101/62; PULSE 66; RESP 18; TEMP 36.8; O2SAT 96
[2024-10-05 03:58] VITALS: BP 107/74; PULSE 77; RESP 18; TEMP 36.5; O2SAT 97
[2024-10-05 05:26] VITALS: BMI 25.8
[2024-10-05 07:15] LABS: Anion Gap 13 (12-20); Blood Urea Nitrogen 16 mg/dL (9-16); Calcium 8.8 mg/dL (8.4-10.2); Carbon Dioxide 21 mmol/L (22-29); Chloride 104 mmol/L (96-108); Creatinine Clr Calc Pharmacy 80.7; Estimated Glomerular Filt Rate > 60; Glucose Random 86 mg/dL (60-115); Potassium 4.2 mmol/L (3.3-5.1); Sodium 134 mmol/L (135-145)
[2024-10-05 07:26] VITALS: BP 100/62; PULSE 64; RESP 19; TEMP 36.6; O2SAT 96
[2024-10-05] MEDS: Furosemide 40 MG TABLET PO (08:08)
[2024-10-05] MEDS: Empagliflozin 10 MG TABLET PO (08:08)
[2024-10-05] MEDS: Amiodarone HCL 200 MG TABLET PO (08:08)
[2024-10-05] MEDS: Ezetimibe 10 MG TABLET PO (08:08)
[2024-10-05] MEDS: Aspirin Enteric Coated 81 MG TABLET.DR PO (08:08)
[2024-10-05] MEDS: Digoxin 0.25 MG TABLET PO (08:08)
[2024-10-05] MEDS: carvediloL 6.25 MG TABLET PO (08:08)
[2024-10-05] MEDS: 0.9 % Sodium Chloride Flush 3 ML SYRINGE IVFLUSH (08:08)
[2024-10-05 09:44] LABS: B Type Natriuretic Peptide 1495 pg/mL (<100)
[2024-10-05 10:58] VITALS: BP 107/68; PULSE 72; RESP 16; TEMP 36.4; O2SAT 97
--- NOTE | 2024-10-05 11:28 | MHC.CM.PN ---
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
--- NOTE | 2024-10-05 11:56 | PM.DS ---
DS: Providers Provider Date of Service: 10/05/24 Date of admission: 10/02/24 15:11 Date of discharge: 10/05/24 Primary care physician: Imelda Sepulveda MD Consults: 10/02/24 15:58 Consult to Cardiology Routine Consulting Provider: [facility] Reason for consultation: chf Has provider been notified: No Attending physician on discharge: Cristobal Ash Discharging clinician: Cristobal Ash DS: Diagnosis Discharge Diagnosis (1) Acute decompensated heart failure: Status: Acute DS: Summary Hospital Course Hospital Course: HPI:69 y/o M with a past medical history of hypertension, hyperlipidemia, CAD, CHF, history of AICD, presented to the hospital today with a chief complaint of sob-patient did not take his medication from at least 3-4 days, also drinking lot of water, he says he is also getting short of breath from few days which is worsening unable to sleep last night, has orthopnea and PND.? He is not sure if he gained any weight he did not check. In ED: Has BNP of 3285, short of breath, leg edema, chest x-ray shows mild edema ,EKG-sinus tachycardia. Patient received IV Lasix in the ED -produced 1.6 liter urine ,sob seems improving . denies any hx of smoking or etoh or recreational drug use. Denies new complaint of chest pain or abdominal pain or fever or chills or nausea or vomiting or cough or weakness or numbness. Hospital course: 69 y/o M with a past medical history of hypertension, hyperlipidemia, CAD, CHF, history of AICD, presented to the hospital today with a chief complaint of sob-he did not take his meds for few days -admitted for Acute on chronic combined systolic and diastolic CHF execerebation-started on iv lasix -seems improved ,bnp still elevated ,clinically improved sob.Patient has no hypoxic and edema improved. seen by cardiology-improved with iv lasix -continue lasix 40 mgpo bid,patient has bodelrine bp -so ccoreg adjusted to 6.25 mg bid due to boderline bp ,continue other meds . plan: adjusted lasix 40 mgpo bid,patient has bodelrine bp -so ccoreg adjusted to 6.25 mg bid . moniter bp closely at home -if any new symptoms dizziness or chest pain or sob -go to nearest Ed. chf education given, encouraged for medication compliance. cardiology will arrange their own appointment. Above management discussed with the patient detail length -he understand and in agreement with the plan, time spent 40 minute. Time Attestation Total time managing care of this patient today: 40 mintues. Discharge Coordination Time (in mins): 40 min Quality: Safe Use of Opioids Does Pt have an Active Cancer Diagnosis on the Problem List?: No Quality: Stroke Does the patient have a stroke diagnosis?: No Physical Exam Vital Signs: Vital Signs: Last Vital Signs Temp 97.5 F 10/05/24 10:58 Pulse 72 10/05/24 10:58 Resp 16 10/05/24 10:58 BP 107/68 10/05/24 10:58 Pulse Ox 97 10/05/24 10:58 O2 Del Method Room Air 10/05/24 10:58 BMI result Body Mass Index 25.8 Appearance: Alert.? Oriented X3.? cvs: rrr, [id number] , no murmur res: air entry diminshed ,has rales at bases. abd: no rebound or guarding ,nt, bs present. ext pulses present , no cyanosis , 2+ edema . neuro: axo3 , nonfocal. DS: Data Data Completed and Pending Labs on day of discharge: Laboratory Results - last 24 hr 10/05/24 10/05/24 06:35 08:43 Sodium 134 L Potassium 4.2 Chloride 104 Carbon Dioxide 21 L Anion Gap 13 BUN 16 Creatinine 0.79 Estim Creat Clear Calc 80.7 Estimated GFR > 60 Random Glucose 86 Calcium 8.8 D B-Natriuretic Peptide 1495 H Imaging Chest x-ray: Radiologist's impression: ITS Impressions Chest X-Ray 10/02/24 10:15 IMPRESSION: Very mild congestive change and right basilar edema. Electronically signed by: Cade Connelly MD 10/02/2024 12:55 PM EST Discharge Plan Discharge Anticipated Discharge Date/Time: 10/05/24 11:42 Patient Disposition: Home, Self-Care Discharge Diagnosis: chf exacerbation due to med noncompliance, htn Referrals: Imelda Sepulveda MD [Primary Care Provider] - 1 Week Discharge Medications: Continued spironolactone 25 mg tablet 25 mg PO DAILY 90 Days Qty: 90 3RF Jardiance 10 mg tablet 10 mg PO DAILY Qty: 30 11RF Entresto 24-26 mg tablet 1 tab PO BID Qty: 180 1RF digoxin 250 mcg (0.25 mg) tablet 250 mcg PO DAILY ivabradine [Corlanor] 5 mg tablet 5 mg PO BID omeprazole 40 mg capsule,delayed release(DR/EC) 40 mg PO DAILY PRN (Reason: Acid Reflux) rosuvastatin 40 mg tablet 40 mg PO BEDTIME ezetimibe 10 mg tablet 10 mg PO DAILY aspirin [Adult Low Dose Aspirin] 81 mg tablet,delayed release (DR/EC) 81 mg PO DAILY amiodarone 200 mg tablet 200 mg PO DAILY Qty: 30 5RF Changed carvedilol 25 mg tablet 6.25 mg PO BID 90 Days Qty: 270 3RF Rx Instructions: must administer with a meal/food furosemide 80 mg tablet 40 mg PO BID 90 Days Qty: 90 3RF Discontinued ibuprofen 600 mg tablet 600 mg PO Q8H PRN (Reason: pain) Qty: 14 0RF Discharge Orders: Discharge Order (Routine); Ordered 10/05/24 Ordered By: Cristobal Ash Diet: Advance to usual diet Activity on Discharge: As tolerated Stand Alone Forms: Patient Portal Discharge page Print Language: Other Care Plan Goals: 69 y/o M with a past medical history of hypertension, hyperlipidemia, CAD, CHF, history of AICD, presented to the hospital today with a chief complaint of sob-he did not take his meds for few days -admitted for Acute on chronic combined systolic and diastolic CHF execerebation-started on iv lasix -seems improved ,bnp still elevated ,clinically improved sob.Patient has no hypoxic and edema improved. seen by cardiology-improved with iv lasix -continue lasix 40 mgpo bid,patient has bodelrine bp -so ccoreg adjusted to 6.25 mg bid ,continue other meds . moniter bp closely at home -if any new symptoms dizziness or chest pain or sob -go to nearest Ed. chf education given, encouraged for medication compliance. cardiology will arrange their own appointment. Health Concerns: as above. Plan of Treatment: moniter bmp and bnp outpatient lasix adjusted 40 mg po bid. Assessment: as above. Discharge Date/Time: 10/05/24 13:42
--- NOTE | 2024-10-05 12:24 | W.MHC.F2F ---
Service Date Service Date: 10/05/24 Encounter Date of encounter: 10/05/24 Encounter: chf Reasons for Services Signs and symptoms assessed: sob or chets pain Reason for care home: CV/CP assess and/or care, medication management, medication treatment and teach disease management MD Overseeing Care: Imelda Sepulveda Homebound: Leaving the home is medically contraindicated at this time without the asist of a device and/or another person due th the listed conditions above and below. Reason homebound: weakness related to hospital stay Homebound supporting statement: Patient has multiple comorbidities including CHF, noncompliance with meds, blood pressure fluctuations-need help with medication management, BP monitoring, labs draws, appointments. Certification: Based on the above findings, I certify that this patient is confined to the home and needs intermittent care home care, physical therapy and/or speech therapy, or continues to need occupational therapy. The patient is under my care, and I have initiated the establishment of the plan of care. The patient will be followed by a physician who will periodically review the plan of care. Time Spent With Patient Time: Total time managing care of this patient today ____ minutes.
--- NOTE | 2024-10-05 12:28 | PM.PNCARD ---
Subjective Subjective Date of Service: 10/05/24 Principal diagnosis: Low blood pressure, severe cardiomyopathy, acute heart failure. Interval history: Blood pressures remained stable. Patient was no symptoms. Says shortness of breath has improved. No palpitations no arrhythmias. Review of Systems Review of Systems Yes all other systems are reviewed and are negative Physical Exam Vital Signs: Last Vital Signs Temp 97.5 F 10/05/24 10:58 Pulse 72 10/05/24 10:58 Resp 16 10/05/24 10:58 BP 107/68 10/05/24 10:58 Pulse Ox 97 10/05/24 10:58 O2 Del Method Room Air 10/05/24 10:58 BMI result Body Mass Index 25.8 Const General: cooperative, comfortable, alert and awake Nutritional Appearance: average body habitus Orientation/consciousness: patient oriented x3 Neck Neck: Yes trachea midline, Yes supple and Yes no JVD Resp Effort & Inspection: normal respiratory effort Auscultation: clear to auscultation bilaterally Cardio Jugular venous distension: no JVD Palpation: abnormal PMI displaced PMI Rate: regular rate Rhythm: regular rhythm Heart sounds: S1 normal heart sound present, S2 normal heart sound present, no click, no gallops and no murmurs GI Auscultation: normal bowel sounds Neuro General: patient oriented x3 and no focal motor deficits Extrem General: Yes no clubbing, cyanosis or edema Objective Labs and Meds 10/02/24 09:46 10/05/24 06:35 Lab results: Laboratory Results - last 24 hr 10/05/24 10/05/24 06:35 08:43 Sodium 134 L Potassium 4.2 Chloride 104 Carbon Dioxide 21 L Anion Gap 13 BUN 16 Creatinine 0.79 Estim Creat Clear Calc 80.7 Estimated GFR > 60 Random Glucose 86 Calcium 8.8 D B-Natriuretic Peptide 1495 H Progress Note: A&P Assessment and plan (1) Acute decompensated heart failure: Status: Acute Assessment and Plan: Acute decompensated congestive heart failure doing well from cardiac perspective. Blood pressure is not stabilized although in the low 100 range which is expected for his poor LV systolic function. Resume Entresto. Continue carvedilol at 6.25 mg b.i.d.. Continue diuretics, Lasix at 40 mg b.i.d. dose. Also continue Jardiance. Hold off on spironolactone. Restart IV burden. Patient can be discharged home. Will set up for follow-up next week. Strongly discussed medication and dietary compliance. He understands and agrees (2) Ventricular arrhythmia: Status: Acute Assessment and Plan: Ventricular arrhythmias status post amiodarone therapy. Will continue monitor remotely via ICD telemetry. Will follow up in the clinic in 7-10 days. Patient can be discharged from cardiac perspective. Time Spent With Patient Time: Total time managing care of this patient today ____ minutes. Progress Note: Quality Stroke Does the patient have a stroke diagnosis?: No Procedures Date of Service Date of Service: 10/05/24
== END 2024-10-05 13:42 | disposition home or self-care (01) | DRG 291 ==
LOC: HO.ED 13:22 → HO.EDOVER 16:04 → HO.IMC 19:57
PROVIDERS: Admitting Provider Internal Medicine; Emergency Provider Emergency Medicine; PCP Internal Medicine; Visit Provider Internal Medicine
DX: I11.0 Hypertensive heart disease with heart failure (principal); I50.43 Acute on chronic combined systolic (congestive) and diastolic (congestive) heart failure; I25.10 Atherosclerotic heart disease of native coronary artery without angina pectoris; I49.8 Other specified cardiac arrhythmias; E78.5 Hyperlipidemia, unspecified; I42.8 Other cardiomyopathies; Z20.822 Contact with and (suspected) exposure to COVID-19; Z91.148 Patient's other noncompliance with medication regimen for other reason; Z95.810 Presence of automatic (implantable) cardiac defibrillator; Z79.82 Long term (current) use of aspirin; Z79.899 Other long term (current) drug therapy
CPT/HCPCS: 0241U; 36415; 71045; 80048; 80053; 80162; 83880; 84484; 85025; 93005; 99285; J1650; J1940

== ENCOUNTER → 2024-10-02 09:20 | Outpatient (BNV) | payer OTHER, SELFPAY | PROVIDERS: Admitting Provider Internal Medicine; Emergency Provider Emergency Medicine; PCP Internal Medicine; Visit Provider Internal Medicine Cardiovascular Disease | DX: R06.09 Other forms of dyspnea (principal); R00.0 Tachycardia, unspecified; I44.0 Atrioventricular block, first degree | CPT/HCPCS: 93010 ==

== ENCOUNTER → 2024-10-02 09:52 | Outpatient (BNV) | payer OTHER, SELFPAY | PROVIDERS: Emergency Provider Emergency Medicine; PCP Internal Medicine; Visit Provider Internal Medicine | DX: I50.43 Acute on chronic combined systolic (congestive) and diastolic (congestive) heart failure (principal) | CPT/HCPCS: 99222; 99232; 99499 ==

== ENCOUNTER → 2024-10-02 15:11 | Outpatient (BNV) | payer OTHER, SELFPAY | PROVIDERS: Admitting Provider Internal Medicine; Emergency Provider Emergency Medicine; PCP Internal Medicine; Visit Provider Internal Medicine Cardiovascular Disease | DX: I50.9 Heart failure, unspecified (principal) | CPT/HCPCS: 99222 ==

== ENCOUNTER 2024-11-02 09:50 | Outpatient (AMB) | payer OTHER, SELFPAY ==
[2024-11-02 10:05] VITALS: BP 108/72; PULSE 65; BMI 25.2
--- NOTE | 2024-11-02 10:05 | MHC.OFFVIS ---
Vital Signs 11/02/24 10:05 Height 5 ft 6 in Weight 156 lb 1.396 oz BMI 25.2 BP 108/72 Blood Pressure Location Lt brachial Position Sitting Pulse 65 Pulse Source Monitor Intake Visit Reasons: f/u per NS Waiter/Waitress Second Class Required: No Hotel Assistant General Manager: Hotel Assistant General Manager Present Allergies No Known Allergies Allergy (Verified 11/02/24 10:07) Medication List - Last Reconciled 11/02/24 by Leticia Garrison NP-C amiodarone 200 mg PO DAILY aspirin (Adult Low Dose Aspirin) 81 mg PO DAILY carvedilol 6.25 mg (1/4 x 25 mg) PO BID 90 days empagliflozin (Jardiance) 10 mg PO DAILY ezetimibe 10 mg PO DAILY furosemide 40 mg (1/2 x 80 mg) PO BID 90 days ivabradine (Corlanor) 5 mg PO BID omeprazole 40 mg PO DAILY PRN rosuvastatin 40 mg PO BEDTIME sacubitril-valsartan 24-26 mg (Entresto) 1 tab PO BID spironolactone 25 mg PO DAILY 90 days HPI HPI f/u per NS: Details: [place] is a 69-year-old male with past medical history of hypertension, hyperlipidemia, nonischemic cardiomyopathy, CAD, coronary stent, ICD, heart failure with reduced EF, NSVT, ventricular arrhythmia who was recently admitted to [facility] with shortness of breath. He is treated for decompensated heart failure. He had not taken his medications for 3 days. He was restarted on appropriate med management. Two weeks later he was admitted to [facility] for shortness of breath. He did undergo an echocardiogram which showed EF 10-15%. He was sent for cardiac catheterization which showed LAD stenosis and stent was placed. He now presents for follow-up. Today he reports he has been doing well since his hospital discharge. His AGER TENDER is present and she states that she is ensuring that he is taking his medications as directed. He tells me his breathing is back to normal. He denies PND, orthopnea or edema. He has no chest discomfort at rest or with activity. Denies lightheadedness, presyncope, syncope. He does only light physical activity. Right radial catheterization site is feeling good. No bleeding issues reported. [facility] Medical History (Updated 11/02/24 @ 18:09 by FLAVIO WelshC) Anomalous coronary artery origin Atherosclerotic cardiovascular disease Heart failure with reduced ejection fraction HLD (hyperlipidemia) Acute on chronic combined systolic and diastolic CHF (congestive heart failure) Nonischemic cardiomyopathy CAD (coronary artery disease) ICD (implantable cardioverter-defibrillator) in place Hypertension Pacemaker Surgical History (Updated 11/02/24 @ 18:11 by FRAN Welsh) Hx of cardiac catheterization Family History Father No problems noted. Mother No problems noted. Social History Household Members: None Housing: Apartment Do you presently have visiting nurse or other home services: Yes Alcohol intake: current Alcohol intake frequency: a few times a month Alcohol type: beer Patient Tobacco Use Status: Never used Tobacco e-Cigarette/Vaping Use: Never Used Second Hand Smoke Exposure: No Substance Use Type: Marijuana service: No Current occupational status: disabled Review of Systems Const All systems reviewed & are unremarkable except as noted in HPI and below ENT Denies dizziness Card Denies chest pain, Denies chest pain at rest, Denies chest pain with activity, Denies rapid heart rate, Denies pedal edema, Denies edema, Denies leg edema, Denies lightheadedness, Denies palpitations, Denies dyspnea, Denies dyspnea on exertion and Denies orthopnea Resp Denies cough, Denies dyspnea and Denies dyspnea on exertion GI Denies hematochezia and Denies change in stool character Musc Denies abnormal gait, Denies limited range of motion, Denies muscle cramps, Denies muscle weakness, Denies numbness, Denies radiating pain into limb, Denies stiffness and Denies tingling Neuro Denies abnormal gait, Denies dizziness, Denies numbness and Denies tingling Endo Denies palpitations Physical Exam Vital Signs: Last Vital Signs Pulse 65 11/02/24 10:05 BP 108/72 11/02/24 10:05 BMI result Body Mass Index 25.2 Const General: cooperative, healthy appearing, comfortable and no acute distress Orientation/consciousness: patient oriented x3 Neck Neck: Yes normal visual inspection and Yes no JVD Resp Effort & Inspection: normal respiratory effort Auscultation: clear to auscultation bilaterally, no rales, no rhonchi and no wheezes Cardio Rate: regular rate Rhythm: regular rhythm Heart sounds: S1 normal heart sound present, S2 normal heart sound present, no murmurs and no rubs Neuro General: patient oriented x3 Extrem General: Yes normal to inspection, No no pedal edema and No calf tenderness Psych Appearance: grossly normal Mental Status: mental status grossly normal Speech and movement: Normal speech and movement present Office Procedures EKG Details: Today, read by me, SR 1st degree avb, RBBB, septal Q wave, lateral Q waves, JT index 104.48, Rate 65. [id number], Complete Assessment & Plan Assessment & Plan (1) Acute decompensated heart failure: Code(s): I50.9 - Heart failure, unspecified Category: Medical Plan: Recent [facility] [place] with decompensated heart failure in the setting of not taking his medications for 3 days. He was diuresed and put back on his cardiac meds then 2 weeks later he was admitted to [facility] with shortness of breath and chest discomfort. He was treated for acute on chronic systolic heart failure. Echocardiogram showed EF 10-15%, which was not a new finding. He did undergo cardiac catheterization which showed LAD 60-70% stenosis and YOVANA was placed. He was discharged with aspirin and Brilinta, Lasix and Aldactone. He was continued on carvedilol, Entresto, Jardiance for neurohormonal modulation. Today he reports he has been doing well since his last hospital discharge. He says his breathing is comfortable now. He has not had any recurrent chest discomfort. He reports compliance with his meds. His AGER TENDER is present and she confirms that she ensures he is taking them as directed. Low-salt diet reviewed. Signs and symptoms of heart failure discussed with him. Cardiology follow-up 3 months, sooner if needed (2) Heart failure with reduced ejection fraction: Code(s): I50.20 - Unspecified systolic (congestive) heart failure Category: Medical Plan: As above (3) Nonischemic cardiomyopathy: Code(s): I42.8 - Other cardiomyopathies Category: Medical Plan: Known history of nonischemic cardiomyopathy. Cardiac catheterization from 2013 had shown proximal LAD 40% stenosis, left circumflex and RCA mild irregularities. He has been treated with appropriate guideline directed medical therapy. ICD is in place. He had recent heart failure admissions as above. He is now back on appropriate medications during recent [facility] admission he did have cardiac catheterization and was found to have 60-70% lad stenosis, YOVANA was placed. At this time he says he is doing well. He does not appear fluid overloaded on exam. (4) CAD (coronary artery disease): Code(s): I25.10 - Atherosclerotic heart disease of crow coronary artery without angina pectoris Category: Medical Plan: History of nonobstructive coronary artery disease. Recent catheterization showing increase in LAD stenosis and stent was placed. There is also mentioned that he has a patent RCA stent. He is on aspirin indefinitely. He is on Brilinta uninterrupted for at least 1 year. On rosuvastatin and Zetia with ideal LDL goal less than 70. Labs from 07/25/2024 had shown LDL 89. He has had some known noncompliance. According to his AGER TENDER he is now taking his meds as directed. Will have him recheck a fasting lipid profile prior to his next visit. Continue carvedilol. Signs and symptoms of angina reviewed with him. (5) S/P cardiac cath: Comment: 10/25/2023, lad 60-70% stenosis, YOVANA placed, proximal RCA stent patent Code(s): Z98.890 - Other specified postprocedural states Category: Surgical Plan: As above (6) Stented coronary artery: Code(s): Z95.5 - Presence of coronary angioplasty implant and graft Category: Surgical Plan: As above (7) ICD (implantable cardioverter-defibrillator) in place: Code(s): Z95.810 - Presence of automatic (implantable) cardiac defibrillator Category: Medical Plan: [place] [facility] ICD in place. He has remote monitoring in use. Last office check shows it is functioning normally. Next office interrogation due in 3 months. (8) SVT (supraventricular tachycardia): Code(s): I47.1 - Supraventricular tachycardia Category: Medical Plan: History of supraventricular tachycardia as seen on remote monitoring. He is currently on carvedilol and Corlanor for heart rate control. No recent heart palpitations (9) Ventricular arrhythmia: Code(s): I49.9 - Cardiac arrhythmia, unspecified Category: Medical Plan: Episode of nonsustained ventricular tachycardia noted on remote monitoring July 2024. He was put on amiodarone at that time. No repeat NSVT since then. Labs from 10/02/2024 shows AST 28, ALT 20, TSH 0.7. Will need ongoing monitoring for amiodarone toxicity. (10) Hypertension: Code(s): I10 - Essential (primary) hypertension Category: Medical Plan: Well controlled at this time. No med changes made (11) Hospital discharge follow-up: Code(s): Z09 - Encounter for follow-up examination after completed treatment for conditions other than malignant neoplasm Category: Medical Plan: As above Plan Time spent on chart review, documentation, interview and assessment Coding Level of Care Code Est Pt Level 5 (19198) Complex EM visit Add On G2211 Diagnoses Acute decompensated heart failure I50.9 Heart failure with reduced ejection fraction I50.20 Nonischemic cardiomyopathy I42.8 CAD (coronary artery disease) I25.10 S/P cardiac cath Z98.890 Stented coronary artery Z95.5 ICD (implantable cardioverter-defibrillator) in place Z95.810 SVT (supraventricular tachycardia) I47.1 Ventricular arrhythmia I49.9 Hypertension I10 Hospital discharge follow-up Z09 CPT Codes EKG - CPT: [id number], Complete ([id number]) Time Spent (min) 45 Comment complex case
== END 2024-11-02 11:14 | disposition home or self-care (01) ==
PROVIDERS: PCP Internal Medicine; Visit Provider Nurse Practitioner Family
DX: I11.0 Hypertensive heart disease with heart failure (principal); I50.20 Unspecified systolic (congestive) heart failure; I42.8 Other cardiomyopathies; I25.10 Atherosclerotic heart disease of native coronary artery without angina pectoris; Z98.890 Other specified postprocedural states; Z95.5 Presence of coronary angioplasty implant and graft; Z95.810 Presence of automatic (implantable) cardiac defibrillator; I47.10 Supraventricular tachycardia, unspecified; I49.9 Cardiac arrhythmia, unspecified; Z09 Encounter for follow-up examination after completed treatment for conditions other than malignant neoplasm; I44.0 Atrioventricular block, first degree
CPT/HCPCS: 93010; 99215; G2211

== ENCOUNTER → 2024-11-02 09:50 | Outpatient (BNVA) | payer OTHER, SELFPAY | PROVIDERS: PCP Internal Medicine; Visit Provider Nurse Practitioner Family | DX: Z09 Encounter for follow-up examination after completed treatment for conditions other than malignant neoplasm (principal); I11.0 Hypertensive heart disease with heart failure; I50.20 Unspecified systolic (congestive) heart failure; I42.8 Other cardiomyopathies; I25.10 Atherosclerotic heart disease of native coronary artery without angina pectoris; I47.10 Supraventricular tachycardia, unspecified; I49.9 Cardiac arrhythmia, unspecified; Z98.890 Other specified postprocedural states; Z95.810 Presence of automatic (implantable) cardiac defibrillator; Z95.5 Presence of coronary angioplasty implant and graft | CPT/HCPCS: 93005; 99212 ==

== ENCOUNTER 2024-11-07 09:40 | Outpatient (REF) | payer OTHER, SELFPAY ==
[2024-11-07 10:57] LABS: Anion Gap 13 (12-20); Blood Urea Nitrogen 18 mg/dL (9-16); Calcium 9.8 mg/dL (8.4-10.2); Carbon Dioxide 27 mmol/L (22-29); Chloride 102 mmol/L (96-108); Estimated Glomerular Filt Rate > 60; Glucose Random 82 mg/dL (60-115); Potassium 4.1 mmol/L (3.3-5.1); Sodium 138 mmol/L (135-145)
[2024-11-07 10:58] LABS: B Type Natriuretic Peptide 1076 pg/mL (<100)
== END 2024-11-07 09:41 | disposition home or self-care (01) ==
LOC: HO.LAB 09:40
PROVIDERS: PCP Internal Medicine; Visit Provider Internal Medicine Cardiovascular Disease
DX: I50.9 Heart failure, unspecified (principal)
CPT/HCPCS: 36415; 80048; 83880

== ENCOUNTER → 2024-12-10 23:59 | Outpatient (BNV) | payer OTHER, SELFPAY ==
--- NOTE | 2024-12-17 15:43 | MHC.OFFVIS ---
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 Mother No problems noted. Social History Household Members: None Housing: Apartment Do you presently have visiting nurse or other home services: Yes Alcohol intake: current Alcohol intake frequency: a few times a month Alcohol type: beer Patient Tobacco Use Status: Never used Tobacco e-Cigarette/Vaping Use: Never Used Second Hand Smoke Exposure: No Substance Use Type: Marijuana service: No Current occupational status: disabled Office Procedures Cardiac Device Check Cardiac Device Check Details: Remote ICD report generated 12/10/2024. ICD function is adequate. Few episodes of high ventricular rate noted consistent with SVT 62765-Yurfbg Cardiac Interrogation, implant defibrillator w/interim Procedure code (CPT) selection complete Assessment & Plan Assessment & Plan (1) ICD (implantable cardioverter-defibrillator) in place: Code(s): Z95.810 - Presence of automatic (implantable) cardiac defibrillator Category: Medical Plan: See above Coding Level of Care Code Procedure Only Diagnoses ICD (implantable cardioverter-defibrillator) in place Z95.810 CPT Codes Cardiac Device Check - Cardiac Device 13: 29516-Uclzyr Cardiac Interrogation, implant defibrillator w/interim ([id number])
== END ==
PROVIDERS: PCP Internal Medicine; Visit Provider Internal Medicine Cardiovascular Disease
DX: I47.10 Supraventricular tachycardia, unspecified (principal); Z95.810 Presence of automatic (implantable) cardiac defibrillator
CPT/HCPCS: 93295

== ENCOUNTER 2025-01-02 09:15 | Outpatient (REF) | payer OTHER, SELFPAY ==
--- OUTSIDE RECORDS SUMMARY | 2025-01-02 09:57 | XMS_ITS | Patient Health Record ---
Author Organization [facility] Address [address] [place] [address] Care Team Providers Care Impregnator Electrolytic Capacitors Name Role Phone Imelda Sepulveda Primary Care Provider Unavailab Fabio Amin Unavailable [phone] Reason For Referral No Information Medications Medication SIG (Take, Route, Frequency, Duration) Notes Start Date End Date Status Spironolactone 25 MG TAKE 1 TABLET BY MO UTH EVERY DAY Oral for 90 Days Active Corlanor 5 MG TAKE 1 TABLET BY ANUJ TH TWICE DAILY Oral for 30 Days Active Furosemide 80 MG TAKE 1 TABLET BY ANUJ TH EVERY DAY Oral for 90 Days Active Entresto 24-26 MG TAKE 1 TABLET BY ANUJ TH TWICE DAILY Oral for 90 Days Active Jardiance 10 MG TAKE 1 TABLET BY ANUJ TH EVERY DAY Oral for 30 Days Active Carvedilol 12.5 MG TAKE 1 TABLET BY ANUJ TH TWICE DAILY Oral for 90 Days Active Aspirin Low Dose 81 MG CHEW 1 TABLET BY MOUTH EVERY DAY Oral for 30 Days Active Digoxin 250 MCG TAKE 1 TABLET BY ANUJ TH EVERY DAY Oral for 90 Days Active Rosuvastatin Calcium 40 MG TAKE 1 TABLET BY MOUTH EVERY DAY AT BEDTIME Oral for 90 Days Active Social History Tobacco Use: [...] No Encounters Encounter Location Date [facility] [address] [place] [address] 08/14/2024 Fabio Silverio [facility] [address] [place] [address] 11/15/2024 Fabio Silverio Plan Of Treatment No Information Insurance Providers Payer Name Payer Address Payer Phone Subscriber Number Group Number Insured Name Patient Relationship to Insured Coverage Start Date Coverage End Date [facility] [employer] Claims [address] [place] [phone] [facility]46 [id number] Trenton Dasilva Self - patient is the insured Medical (General) History Medical History History ICD Code Heart disease High Blood Pressure Stroke Surgical History Surgery Date(Month/Year) cardiac pacemeker
--- OUTSIDE RECORDS SUMMARY | 2025-01-02 09:57 | XMS_ITS ---
Author Organization [facility] Address [address] [place] [address] Care Team Providers Care Copy Messenger Name Role Phone Imelda Sepulveda Primary Care Provider Unavailab Fabio Amin Unavailable [phone] Medications Medication SIG (Take, Route, Frequency, Duration) Notes Start Date End Date Status Spironolactone 25 MG TAKE 1 TABLET BY MO UTH EVERY DAY Oral for 90 Days Active Corlanor 5 MG TAKE 1 TABLET BY ANUJ TH TWICE DAILY Oral for 30 Days Active Furosemide 80 MG TAKE 1 TABLET BY ANUJ TH EVERY DAY Oral for 90 Days Active Carvedilol 12.5 MG TAKE 1 TABLET BY ANUJ TH TWICE DAILY Oral for 90 Days Active Aspirin Low Dose 81 MG CHEW 1 TABLET BY MOUTH EVERY DAY Oral for 30 Days Active Entresto 24-26 MG TAKE [...] Date Provider Diagnosis [facility] [address] [place] [address] 11/16/2024 Fabio Silverio Plan Of Treatment No Information Progress Notes * Sayda SIMMSOB:[birth year] (69 yo M)Acc No.[id number]:11/16/2024 Progress Notes Patient:Darinel RITTER Provider:?Fabio Silverio DPM :1955???Age:69 Y???Sex:Male Partha e:11/16/2024 Address:[address] [place], [place] [address], [place] Pcp:Imelda Sepulveda Subjective: * Chief Complaints: * ??? * ROS:?General/Constitutional:?Nausea?denies.?Vomiting?denies.?Hunger Thirst?denies.?Loss appetite?denies.?Chills?denies.?Fatigue?denies.?Fever?denies.?Night Sweats?denies.?Unexplained weight loss?denies.?Unexplained weight gain?denies.?HEENTM:?Dentures?denies.?Dizziness?denies.?Glasses/contacts?admits.?Retinopathy?de nies.?Blurred/double vision?denies.?TMJ?denies.?Discharge/drainage?denies.?Implants?denies.?Sore throat?denies.?Dental implants?denies.?Hard of hearing ?denies.?Difficulty chewing/swallowing/speaking?denies.?Nose bleeds?denies.?Sore mouth?denies.?Respiratory:?On Oxygen?denies.?Pneumonia/pleurisy?denies.?Bronchitis?denies.?Emphysema?denies.?C oughing?denies.?Cough blood?denies.?Shortness of breath?denies.?Wheezing?denies.?Cardiovascular:?Pacemaker?denies.?MVP?denies.?WPW?denies.?CHF?denies.?Heart attack?denies.?Septal defect?denies.?Rapid beat?denies.?Chest pain ?denies.?Atrial Fib.?denies.?Murmur/Palpitations?denies.?Gastrointestinal:?Hemorrhoids?denies.?Stomach/Abdominal pain?denies.?Dark blood stool?denies.?Irritable bowel ?denies.?Constipation?denies.?Diarrhea?denies.?Hematology:?Swelling?denies.?Clots?denies.?Varicose Veins?denies.?Bruising?denies.?Bleeding problem?denies.?Genitourinary:?Blood urine?denies.?Frequent/Painfu/urination/bladder control?denies.?Kidney stones?denies.?Infection (UTI)?denies.?Nephropathy?denies.?sex trans dis (STD)?denies.?Prostate?denies.?Musculoskeletal:?Hammertoes?denies.?Bunions?denies.?Back Pain?denies.?Muscle Cramps/ Resting?denies.?Muscle cramps / walking?denies.?Generalized aches and pains?denies.?Weakness?denies.?Integ.:?Camacho?denies.?Scars?denies.?Corns/calluses?denies.?Ingrown nails?denies.?Painful nails?denies.?Open Sores?denies.?Rashes?denies.?Neurologic:?Difficulty sleeping?denies.?Brain disorder?denies.?Numbness?denies.?Balance trouble?denies.?Confusion?denies.?Fainting/blackouts?denies.?Tingling?denies.?Tr emors?denies.? * Medical History:?Heart disea se, High Blood Pressure, Stroke. * Surgical History:?cardiac pa cemeker . * Family History:?Mother: dece ased.?Father: .?Siblings: stroke, heart attack, high blood pressure, cancer.? * Social History:?Tobacco Use:?Tobacco Use/Smoking?Are you a:?nonsmoker ?Additional Findings: Tobacco Non-User?Current non-smoker ?Tobacco use other than smoking?Are you an other tobacco user??No ???Drugs/Alcohol:?Drugs?Have you used drugs other than those for medical reasons in the past 12 months??No ?Alcohol Screen?Did you have a drink containing alcohol in the past year??Yes ?Points?0 ?Interpretation?Negative ???Miscellaneous:?Caffeine: no. ?Children: no. ?Exercise: no. ?Marital status: single. * Medications:?Taking Jardianc e 10 MG Tablet TAKE 1 TABLET BY [...] BY MOUTH EVERY DAY Oral Objective: * Vitals:? Assessment: Plan: * Treatment: * Images: * The named appointment provid er may or may not be the originator of this progress note, and it is not deemed complete until electronically signed by the appointment provider. Sign off status: Pending * Provider:?Fabio Silevrio DPM Date:?2024 Generated for Jackie guerrero/Carter/Ronaldo on:?01/02/2025 09:57 AM EDT
--- OUTSIDE RECORDS SUMMARY | 2025-01-02 09:57 | XMS_ITS ---
Author Organization [facility] Address [address] [place] [address] Care Team Providers Care Bottom Liner Name Role Phone Imelda Sepulveda Primary Care Provider Unavailab Fabio Amin Unavailable [phone] REASON FOR VISIT ASSISTANT OPERATOR PPWK Entered Encounters Encounter Location Date Provider Diagnosis [facility] [address] [place] [address] 08/14/2024 Fabio Silverio Plan Of Treatment No Information Progress Notes * Sayda SIMMSOB:[birth year] (69 yo M)Acc No.[id number]:08/14/2024 Patient:?Darinel Simms :1955???Age:69 Y???Sex:Male Address:[address] [place], [place] [address] [address] * true * Date:? Generated for Printi ng/Falavong/eTransmitting on:?01/02/2025 09:56 AM EDT
--- OUTSIDE RECORDS SUMMARY | 2025-01-02 09:57 | XMS_ITS ---
Author Organization [facility] Address [address] [place] [address] Care Team Providers Care Wire Mill Rover Name Role Phone Imelda Sepulveda Primary Care Provider Unavailab Fabio Amin Unavailable [phone] REASON FOR VISIT cx appt 11/16/24 Encounters Encounter Location Date Provider Diagnosis [address] [address] 11/15/2024 Fabio Silverio Plan Of Treatment No Information Progress Notes * Pratik SIMMSgeDOB:[birth year] (69 yo M)Acc No.[id number]:11/15/2024 Patient:?Darinel SIMMS :1955???Age:69 Y???Sex:Male Address:[address] [place], [place] [address] [address] * true * Date:? Generated for Obiei cesar/Carter/eTransmitting on:?01/02/2025 09:56 AM EDT
[2025-01-02 10:51] LABS: MANUAL DIFF FLAG NO
[2025-01-02 11:08] LABS: Basophils Absolute Auto 0.1 X10*3/uL (0.0-0.2); Eosinophils Absolute Auto 0.2 X10*3/uL (0.0-0.4); Eosinophils Percent Auto 2.5 % (0-4); Hematocrit 47.9 % (42.0-52.0); Hemoglobin 15.9 g/dl (14.0-18.0); Imm Gran Abs Auto 0.02 X10*3/uL (0.00-0.03); Imm Gran Pct Auto 0.3 % (0.0-0.4); Lymphocytes Absolute Auto 1.5 X10*3/uL (1.2-4.9); Lymphocytes Percent Auto 21.1 % (20-40); Mean Corpuscular HGB Conc 33.2 g/dl (31.0-36.0); Mean Corpuscular Hemoglobin 29.7 pg (27.0-33.0); Mean Corpuscular Volume 89.5 fL (80.0-98.0); Mean Platelet Volume 11.3 fL (9.4-12.4); Monocytes Absolute Auto 0.7 X10*3/uL (0.1-1.2); Neutrophils Absolute Auto 4.7 x10*3/uL (2.0-8.3); Neutrophils Percent Auto 65.1 % (45-73); Platelet Count 211 X10*3/uL (160-400); Red Blood Count 5.35 X10*6/uL (4.60-5.80); Red Cell Distribution Width 13.4 % (11.0-16.0); White Blood Count 7.2 X10*3/uL (4.8-10.8)
[2025-01-02 11:27] LABS: Alanine Aminotransferase 22 U/L (0-40); Albumin Level 4.6 g/dL (3.5-5.0); Alkaline Phosphatase 60 U/L (39-117); Anion Gap 12 (12-20); Aspartate Amino Transferase 24 U/L (5-37); Bilirubin Total 0.7 mg/dL (0.0-1.0); Blood Urea Nitrogen 19 mg/dL (9-16); Calcium 9.6 mg/dL (8.4-10.2); Carbon Dioxide 28 mmol/L (22-29); Chloride 103 mmol/L (96-108); Cholesterol 201 mg/dL (<200); Estimated Glomerular Filt Rate > 60; Glucose Random 101 mg/dL (60-115); HDL Cholesterol 42 mg/dL (>40); LDL Cholesterol Calculated 139 mg/dL (<100); Potassium 4.2 mmol/L (3.3-5.1); Sodium 139 mmol/L (135-145); Total Protein 8.4 g/dL (6.5-8.0); Triglycerides 101 mg/dL (<150)
== END 2025-01-02 09:16 | disposition home or self-care (01) ==
LOC: HO.10HDL 09:15
PROVIDERS: Visit Provider Internal Medicine
DX: E78.00 Pure hypercholesterolemia, unspecified (principal); Z12.5 Encounter for screening for malignant neoplasm of prostate; I25.5 Ischemic cardiomyopathy; N40.0 Benign prostatic hyperplasia without lower urinary tract symptoms; Z95.0 Presence of cardiac pacemaker
CPT/HCPCS: 36415; 80053; 80061; 84153; 85025

== ENCOUNTER 2025-02-13 10:04 | Outpatient (AMB) | payer OTHER, SELFPAY ==
--- NOTE | 2025-02-13 10:25 | A.OFFVIS_ITS ---
Vital Signs 02/13/25 10:26 Height 5 ft 6 in Weight 167 lb 8.821 oz BMI 27.0 BP 106/60 Blood Pressure Location Lt brachial Position Sitting Pulse 63 Pulse Source Monitor Intake Visit Reasons: 3m follow up [employer] Required: Yes [employer] Services: [employer] Offered & Declined Accompanied by: Friend Allergies No Known Allergies Allergy (Verified 11/02/24 10:07) Medication List - Last Reconciled 02/13/25 by Nash Anne MD amiodarone 200 mg PO DAILY aspirin (Adult Low Dose Aspirin) 81 mg PO DAILY carvedilol 6.25 mg (1/4 x 25 mg) PO BID 90 days empagliflozin (Jardiance) 10 mg PO DAILY ezetimibe 10 mg PO DAILY furosemide 40 mg (1/2 x 80 mg) PO BID 90 days ivabradine (Corlanor) 5 mg PO BID omeprazole 40 mg PO DAILY PRN rosuvastatin 40 mg PO BEDTIME sacubitril-valsartan 24-26 mg (Entresto) 1 tab PO BID spironolactone 25 mg PO DAILY 90 days HPI Comments Details: [place]on comes for follow-up. He is here with his friend who acts as aerial photograph interpreter. Patient says he has been doing well. Has no symptoms. Walks for 20 minutes for a mi and has no symptoms of shortness of breath. No chest pain. No orthopnea, PND, leg edema. No weight gain or abdominal distension. No prolonged palpitations, lightheadedness, syncope, ICD discharge. Takes all his medications. 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 Mother No problems noted. Social History Household Members: None Housing: Apartment Do you presently have visiting nurse or other home services: Yes Alcohol intake: current Alcohol intake frequency: a few times a month Alcohol type: beer Patient Tobacco Use Status: Never used Tobacco e-Cigarette/Vaping Use: Never Used Second Hand Smoke Exposure: No Substance Use Type: Marijuana service: No Current occupational status: disabled Review of Systems Const Denies weakness ENT Denies dizziness Card Denies chest pain, Denies chest pain with activity, Denies syncope, Denies rapid heart rate, Denies pedal edema, Denies edema, Denies leg edema, Denies lightheadedness, Denies palpitations, Denies dyspnea, Denies dyspnea on exertion and Denies orthopnea Resp Denies cough, Denies dyspnea and Denies dyspnea on exertion GI Denies hematochezia and Denies change in stool character Musc Denies abnormal gait, Denies muscle cramps, Denies muscle weakness, Denies numbness, Denies radiating pain into limb and Denies tingling Neuro Denies abnormal gait, Denies dizziness, Denies syncope, Denies numbness, Denies tingling and Denies weakness Endo Denies palpitations Physical Exam Vital Signs: Last Vital Signs Pulse 63 02/13/25 10:26 BP 106/60 02/13/25 10:26 BMI result Body Mass Index 27.0 Const General: cooperative, healthy appearing, comfortable and no acute distress Orientation/consciousness: patient oriented x3 Neck Neck: Yes normal visual inspection and Yes no JVD Resp Effort & Inspection: normal respiratory effort Auscultation: clear to auscultation bilaterally, no rales, no rhonchi and no wheezes Cardio Rate: regular rate Rhythm: regular rhythm Heart sounds: S1 normal heart sound present, S2 normal heart sound present, no murmurs and no rubs Neuro General: patient oriented x3 Extrem General: Yes normal to inspection, No no pedal edema and No calf tenderness Psych Appearance: grossly normal Mental Status: mental status grossly normal Speech and movement: Normal speech and movement present Office Procedures Cardiac Device Check Cardiac Device Check Details: Single-chamber [place] ICD in place. Programmed in VVI at 40 beats per minute. Ventricular pacing thresholds are stable. Ventricular sensing is adequate. Pacing and shock lead impedance is stable. Battery life is at about 2 years. No arrhythmias noted 18607-UR Cardiac Device Check, single lead implantable defibrillator Procedure code (CPT) selection complete EKG Details: EKG shows normal sinus rhythm with first-degree AV block with right bundle- branch block and septal infarct 96736-[id number], Complete Assessment & Plan Assessment & Plan (1) Heart failure with reduced ejection fraction: Code(s): I50.20 - Unspecified systolic (congestive) heart failure Category: Medical Plan: Heart failure with reduced ejection fraction this elderly gentleman with severe LV systolic dysfunction. Will follow-up echocardiogram near future. Clinically euvolemic and well compensated doing well on current therapy. Continue neurohor monal modulation with Entresto, spironolactone, Jardiance as well as carvedilol which she is tolerating well. Encouraged to continue maintain activity level as tolerated. Continue current diuretic regimen. Clinically appears to be euvolemic well compensated. Daily weight monitoring avoidance salt loading was discussed. Additional diuretics as need be. He understands and agrees. Continue ivabradine as well. (2) CAD (coronary artery disease): Code(s): I25.10 - Atherosclerotic heart disease of [place] coronary artery without angina pectoris Category: Medical Plan: CAD status post stenting to the RCA. No symptoms of angina at current point time. Continue low-dose aspirin therapy. Continue high-intensity statin therapy with target goal LDL less than 70 mg/dL. Encouraged to maintain activity level as tolerated. Continue aggressive blood pressure control which is currently well optimized. (3) Ventricular arrhythmia: Code(s): I49.9 - Cardiac arrhythmia, unspecified Category: Medical Plan: Prior ventricular arrhythmias currently suppressed on amiodarone therapy. Has done well with amiodarone therapy. Given his marked cardiac structural abnormality, continue amiodarone therapy to reduce ventricular arrhythmias as well as risk of recurrent ICD discharge and ventricular storm. (4) ICD (implantable cardioverter-defibrillator) in place: Code(s): Z95.810 - Presence of automatic (implantable) cardiac defibrillator Category: Medical Plan: ICD in place, working well. Reprogrammed for adequate function. Will follow up remotely. Will follow up in the clinic in 6 months time. Will follow up in the clinic in 6 months time, sooner p.r.n.. Thank you for allowing me to partake in his care Coding Level of Care Code Est Pt Level 4 (21945) Complex EM visit Add On G2211 Diagnoses Heart failure with reduced ejection fraction I50.20 CAD (coronary artery disease) I25.10 Ventricular arrhythmia I49.9 ICD (implantable cardioverter-defibrillator) in place Z95.810 CPT Codes Cardiac Device Check - Cardiac Device 4: 72402-VD Cardiac Device Check, single lead implantable defibrillator ([id number]) EKG - CPT: 13523-Cwjjqmqlheaijxotx, Complete ([id number])
[2025-02-13 10:26] VITALS: BP 106/60; PULSE 63; BMI 27.0
--- OUTSIDE RECORDS SUMMARY | 2025-02-13 11:38 | XMS_ITS ---
Author Organization [facility] Address [address] [place] [id number] Care Team Providers Care Swiss Type Screw Machine Operator Name Role Phone Imelda Sepulveda Primary Care Provider Unavailab Fabio Amin Unavailable [phone] REASON FOR VISIT cx appt 11/16/24 Encounters Encounter Location Date Provider Diagnosis [address] [address] 11/15/2024 Fabio Silverio Plan Of Treatment No Information Progress Notes * Pratik SIMMSgeDOB:[birth year] (69 yo M)Acc No.[id number]:11/15/2024 Patient:?Darinel SIMMS :1955???Age:69 Y???Sex:Male Address:[address] [place], [place] [address] [address] * true * Date:? Generated for Obiei cesar/Carter/eTransmitting on:?02/13/2025 11:37 AM EDT
--- OUTSIDE RECORDS SUMMARY | 2025-02-13 11:38 | XMS_ITS | Patient Health Record ---
Author Organization [facility] Address [address] [place] [address] Care Team Providers Care Quality Assurance Lab Technician Name Role Phone Imelda Sepulveda Primary Care Provider Unavailab Fabio Amin Unavailable [phone] Reason For Referral No Information Medications Medication [...] No Encounters Encounter Location Date Provider Diagnosis [facility] [address] [place] [address] 08/14/2024 Fabio Silverio [facility] [address] [place] [address] 11/15/2024 Fabio Silverio Plan Of Treatment No Information Insurance Providers Payer Name Payer Address Payer Phone Subscriber Number Group Number Insured Name Patient Relationship to Insured Coverage Start Date Coverage End Date [facility] [employer] Claims [address] [place] [phone] [facility]37 [id number] [place] Dasilva Self - patient is the insured Medical (General) History Medical History History ICD Code Heart disease High Blood Pressure Stroke Surgical History Surgery Date(Month/Year) cardiac pacemeker
--- OUTSIDE RECORDS SUMMARY | 2025-02-13 11:38 | XMS_ITS ---
Author Organization [facility] Address [address] [place] [address] Care Team Providers Care Bench Precision Assembler Name Role Phone Imelda Sepulveda Primary Care Provider Unavailab Fabio Amin Unavailable [phone] REASON FOR VISIT INDUSTRIAL ENERGY ENGINEER PPWK Entered Encounters Encounter Location Date Provider Diagnosis [facility] [address] [place] [address] 08/14/2024 Fabio Silverio Plan Of Treatment No Information Progress Notes * Sayda SIMMSOB:[birth year] (69 yo M)Acc No.[id number]:08/14/2024 Patient:?Darinel Simms :1955???Age:69 Y???Sex:Male Address:[address] [place], [place] [address], [place] [address] * true * Date:? Generated for Printi ng/Falavong/eTransmitting on:?02/13/2025 11:37 AM EDT
--- OUTSIDE RECORDS SUMMARY | 2025-02-13 11:38 | XMS_ITS ---
Author Organization [facility] Address [address] [place] [address] Care Team Providers Care Counselor Supervisor Name Role Phone Imelda Sepulveda Primary Care Provider Unavailab Fabio Amin Unavailable [phone] Medications Medication SIG (Take, Route, Frequency, Duration) [...] Provider Diagnosis [facility] [address] [place] [address] 11/16/2024 Fabio Silverio Plan Of Treatment No Information Progress Notes * Sayda SIMMSOB:[birth year] (70 yo M)Acc No.[id number]:11/16/2024 Progress Notes Patient:Darinel RITTER Provider:?Fabio Silverio DPM :1955???Age:69 Y???Sex:Male Partha e:11/16/2024 Address:[address] [place], [place] [address] Pcp:Imelda Sepulveda Subjective: * Chief Complaints: * [...] provider. Sign off status: Pending * Provider:?Fabio Silverio DPM Date:?2024 Generated for Jackie guerrero/Carter/Ronaldo on:?02/13/2025 11:37 AM EDT
== END 2025-02-13 11:28 | disposition home or self-care (01) ==
LOC: HO.HCS 10:04
PROVIDERS: PCP Internal Medicine; Visit Provider Internal Medicine Cardiovascular Disease
DX: I50.20 Unspecified systolic (congestive) heart failure (principal); I25.10 Atherosclerotic heart disease of native coronary artery without angina pectoris; I49.9 Cardiac arrhythmia, unspecified; Z95.810 Presence of automatic (implantable) cardiac defibrillator
CPT/HCPCS: 93010; 93282; 99214; G2211

== ENCOUNTER → 2025-02-13 10:04 | Outpatient (BNVA) | payer OTHER, SELFPAY | PROVIDERS: PCP Internal Medicine; Visit Provider Internal Medicine Cardiovascular Disease | DX: Z45.02 Encounter for adjustment and management of automatic implantable cardiac defibrillator (principal); I50.20 Unspecified systolic (congestive) heart failure; I25.10 Atherosclerotic heart disease of native coronary artery without angina pectoris; I49.9 Cardiac arrhythmia, unspecified; I44.0 Atrioventricular block, first degree; I45.10 Unspecified right bundle-branch block; R94.31 Abnormal electrocardiogram [ECG] [EKG] | CPT/HCPCS: 93005; 99212 ==

== ENCOUNTER 2025-02-27 09:56 | Inpatient (IN) | payer OTHER, SELFPAY ==
--- NOTE | ~2025-02-27 | XR_ITS ---
EXAMINATION: XR CHEST CLINICAL INFORMATION: chest pain COMPARISON: 10/02/2024, 05/02/2023. TECHNIQUE: Frontal view of the chest was obtained. FINDINGS: Single lead AICD device in the left hemithorax, with lead extending into the right ventricle. There is cardiomegaly. The aorta is calcified and mildly tortuous. There is vascular congestion in the hilar regions bilaterally. Mildly increased interstitial markings throughout both lungs, with hazy appearance and Pepe B lines in the lung bases. No pneumothorax or effusion. No focal osseous or soft tissue abnormality. XR/XR chest 1V IMPRESSION: Single lead AICD device with lead in the right ventricle. Cardiomegaly with mild interstitial pulmonary edema suspected. No effusions or consolidations. Electronically signed by: Aman Garcia MD 02/27/2025 12:21 PM EDT
--- NOTE | 2025-02-27 09:57 | ECG_ITS ---
Test Reason : chest pain Blood Pressure : */* mmHG Vent. Rate : 89 BPM Atrial Rate : 90 BPM P-R Int : 256 ms QRS Dur : 192 ms QT Int : 466 ms P-R-T Axes : 44 144 -14 degrees QTcB Int : 566 ms Possible atrial flutter Right bundle branch block Premature ventricular complexes Abnormal ECG When compared with ECG of 02-Oct-2024 09:28, rhythm change Referred By: Generic ED Physician Electronically Signed By: HENNY SANDHU
[2025-02-27 09:59] VITALS: BP 138/87; PULSE 98; RESP 18; TEMP 36.4; O2SAT 100; BMI 28.5
--- NOTE | 2025-02-27 10:28 | ED_ITS ---
HPI - Chest Pain General Chief Complaint: Chest Pain Stated Complaint: Chest Pain SOB Time Seen by Provider: 02/27/25 10:28 Source: patient, family (patient's daughter) and deaf interpreter (patient declined [facility] [place] spanish interpreter/translator and requested to use his daughter for translation needs.) Mode of arrival: ambulatory Limitations: language barrier (patient declined [facility] [place] spanish interpreter/translator and requested to use his daughter for translation needs.) History of Present Illness ED Provider: Lynette Ortega PA-C HPI narrative: Patient is a 70 year old assigned male at with a history of severe cardiomyopathy most recent LVEF 10-15% on echo in February 2024 s/p ICD implantation, CAD with prior reported TX in 10/2024 s/p YOVANA placement in proximal LAD at [facility] and s/p reported PCI in 2014 elsewhere, presenting to the emergency department today with chest pain. Patient states that he began having chest pain last night that is consistent with the kind of pain he had when he had his last heart attack. Patient denies any dizziness, lightheadedness, abdominal pain, nausea, vomiting, fever, chills, blurry vision, double vision, loss of vision, back pain, night sweats, pain with urination, increased urinary frequency, increased urinary urgency, blood in his urine or stool, syncope or a near syncopal episode, recent trauma or falls, bowel incontinence, bladder incontinence, or any other complaints at this time. 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 Related Data Home Medications ?Medication ?Instructions ?Recorded ?Confirmed ezetimibe 10 mg tablet 10 mg PO DAILY 08/18/20 02/27/25 rosuvastatin 40 mg tablet 40 mg PO BEDTIME 08/18/20 02/27/25 acetaminophen 650 mg 650 mg PO TID PRN pain 02/27/25 02/27/25 tablet,extended release aspirin 81 mg chewable tablet 1 tab PO DAILY 02/27/25 02/27/25 empagliflozin 10 mg tablet 10 mg PO DAILY 02/27/25 02/27/25 (Jardiance) furosemide 80 mg tablet 80 mg PO DAILY 02/27/25 02/27/25 ivabradine 5 mg tablet (Corlanor) 5 mg PO BID 02/27/25 02/27/25 ticagrelor 90 mg tablet (Brilinta) 90 mg PO BID 02/27/25 02/27/25 Previous Rx's ?Medication ?Instructions ?Recorded spironolactone 25 mg tablet 25 mg PO DAILY 90 days #90 tabs 04/20/23 sacubitril 24 mg-valsartan 26 mg 1 tab PO BID #180 tabs 08/20/24 tablet (Entresto) amiodarone 200 mg tablet 200 mg PO DAILY #30 tabs 09/05/24 carvedilol 25 mg tablet 6.25 mg (1/4 x 25 mg) PO BID 90 10/05/24 days #270 tabs Allergies Allergy/AdvReac Type Severity Reaction Status Date / Time No Known Allergies Allergy Verified 02/27/25 10:03 Review of Systems 2 Constitutional: Constitutional: Reports no additional constitutional complaints, Denies chills, Denies fever(s) and Denies night sweats Eyes: Eyes: Reports no additional eye complaints, Denies blurry vision, Denies change in vision, Denies diplopia, Denies eye discharge, Denies loss of vision and Denies eye pain ENT: Denies dizziness Cardiovascular: Cardiovascular: Reports no additional cardiovascular complaints, Reports chest pain, Denies lightheadedness, Denies Loss of Consciousness and Denies dyspnea Respiratory: Respiratory: Reports no additional respiratory complaints and Denies dyspnea Gastrointestinal: Gastrointestinal: Reports no additional gastrointestinal complaints, Denies abdominal pain, Denies melena, Denies hematochezia, Denies change in bowel habits and Denies change in stool character Genitourinary: Genitourinary: Reports no additional male genitourinary complaints, Denies hematuria, Denies oliguria, Denies difficulty urinating, Denies dysuria, Denies urinary frequency, Denies urinary hesitancy, Denies urinary incontinence and Denies urinary urgency Musculoskeletal: Musculoskeletal: Reports no additional musculoskeletal complaints, Denies numbness and Denies tingling Neurologic: Denies dizziness, Denies loss of vision, Denies numbness and Denies tingling Psychiatric: Psychiatric: Reports no additional psychiatric complaints Endocrine: Endocrine: Reports no additional endocrine complaints Hematologic/Lymphatic: Hematologic/Lymphatic: Reports no additional hematologic/lymphatic complaints Allergic/Immunologic: Allergic/Immunologic: Reports no additional allergic/immunologic complaints PMFSH Past Medical History Attestation statement: The following information was validated with the patient. (all information validated with the patient's daughter) Source: old records reviewed, obtained from family (patient's daughter provided additional history and confirmed the history provided by the patient.) and nursing notes reviewed Medical History Anomalous coronary artery origin Atherosclerotic cardiovascular disease Heart failure with reduced ejection fraction HLD (hyperlipidemia) Acute on chronic combined systolic and diastolic CHF (congestive heart failure) Nonischemic cardiomyopathy CAD (coronary artery disease) ICD (implantable cardioverter-defibrillator) in place Hypertension Pacemaker Surgical History Stented coronary artery S/P cardiac cath Hx of cardiac catheterization Family History Family History Father No problems noted. Mother No problems noted. Social History Social History Household Members: None Housing: Apartment Do you presently have visiting nurse or other home services: Yes Alcohol intake: current Alcohol intake frequency: a few times a month Alcohol type: beer Patient Tobacco Use Status: Never used Tobacco e-Cigarette/Vaping Use: Never Used Second Hand Smoke Exposure: No Substance Use Type: Marijuana Advance Directives: No Advance Directives Information Provided: Yes service: No Current occupational status: disabled Physical Exam 2 Vital Signs: Vital Signs: Last Vital Signs Temp 97.9 F 02/27/25 15:02 Pulse 62 02/27/25 15:02 Resp 14 02/27/25 15:02 BP 115/82 02/27/25 15:02 Pulse Ox 98 02/27/25 15:02 O2 Del Method Room Air 02/27/25 15:02 BMI result Body Mass Index 28.5 Const: General: cooperative, no acute distress, alert and awake Nutritional Appearance: well nourished Orientation/consciousness: patient oriented x3 HEENT: Head: Yes normal to inspection and Yes atraumatic Ears: hearing grossly normal bilaterally and external ears normal General nose exam: Normal external nose present, no nasal discharge noted and no epistaxis Face and sinus: Yes normal facial exam, No abrasion and No laceration Mouth: Normal oral and palatal mucosa present, no drooling and no muffled voice Eyes: General: appearance normal, both eyes and all related structures P eriorbital: periorbital findings normal Eyelids: Yes eyelids normal C onjunctivae: conjunctivae normal Pupils: Equal, round and reactive pupils present EOM: EOMs intact bilaterally Neck: Neck: Yes normal visual inspection, Yes full ROM and Yes no lymphadenopathy Resp: Effort & Inspection: normal respiratory effort and able to speak in complete sentences Neuro: General: patient oriented x3, moves all extremities and CN's II-XI intact bilaterally Cranial nerves: Yes Equal, round and reactive pupils present Cognition (Neuro): normal cognition Extrem: General: Yes normal to inspection, Yes full ROM and Yes capillary refill normal Psych: Appearance: grossly normal Mental Status: mental status grossly normal Affect: normal affect Attitude: cooperative Thought process: N ormal thought process present Thought content: Normal thought content present Insight: Good insight present (Psych) Medications Administered Discontinued Medications Generic Name Dose Route Start Last Admin Trade Name Freq PRN Reason Stop Dose Admin Enoxaparin Sodium 80 mg 02/27/25 12:13 02/27/25 12:43 Enoxaparin Sodium 80 Mg/0.8 Ml Syringe 1 mg/kg (80 mg) 02/27/25 12:14 80 mg SUBCUT Administration ONCE ONE Furosemide 20 mg 02/27/25 12:13 02/27/25 12:43 Furosemide 20 Mg/2 Ml Vial IVPUSH 02/27/25 12:14 20 mg ONCE ONE Administration Protocol Morphine Sulfate 2 mg 02/27/25 11:29 02/27/25 11:57 Morphine Sulfate 2 Mg/Ml Cartridge IVPUSH 02/27/25 11:30 2 mg ONCE ONE Administration Protocol Nitroglycerin 0.4 mg 02/27/25 10:30 02/27/25 10:50 Nitroglycerin 0.4 Mg Tab.Subl SUBLINGUAL 0.4 mg Q5MX3 PRN Administration Chest Pain Medical Decision Making Medical Decision Making MDM Narrative: Patient is a 70 year old assigned male at with a history of severe cardiomyopathy most recent LVEF 10-15% on echo in February 2024 s/p ICD implantation, CAD with prior reported TX in 10/2024 s/p YOVANA placement in proximal LAD at [facility] and s/p reported PCI in 2014 elsewhere, presenting to the emergency department today with chest pain. Patient's physical exam was as noted in the physical exam portion of this note. Patient's blood work showed an elevated BNP of 1468, initial trop of 9.8 with a repeat of 12.5. Patient's initial EKG showed a RBBB. Patient's chest x-ray showed no acute process. I consulted with Dr. Ling the manager resort who recommended SL nitro which brought his pain from a 6 to a 4, 20mg of IV lasix, 2 mg of IV morphine, 1 dose of therapeutic lovenox, and admission for continued monitoring. I spoke to the hospitalist team who agreed to admission. I explained my physical exam findings as well as all test results to the patient and the patient's daughter. I answered all questions asked by the patient and the patient's daughter. Patient and the patient's daughter verbalized agreement and understanding with this treatment plan and admission. Differential Diagnosis Differential Diagnoses: The differential diagnosis associated with the presentation includes Chest pain ACS STEMI NSTEMI CHF exacerbation Admission/Observation Consideration of admission/observation: Escalation of care including admission/observation considered Patient admitted as noted in the MDM Rationale portion of this note. Consult Healthcare Provider Management of the patient was discussed with: Office Rental Clerk (spoke to the manager resort as noted in the MDM Rationale portion of this note. ) Lab Data [facility] Lab Attestation statement: I reviewed the patient's lab results. My interpretation of these results are in the MDM Rationale portion of this note. 02/27/25 10:47 02/27/25 10:47 Labs: Lab Results 02/27/25 Range/Units 10:47 WBC 8.5 (4.8-10.8) X10*3/uL RBC 4.75 (4.60-5.80) X10*6/uL Hgb 14.8 (14.0-18.0) g/dl Hct 42.3 (42.0-52.0) % MCV 89.1 (80.0-98.0) fL MCH 31.2 (27.0-33.0) pg MCHC 35.0 (31.0-36.0) g/dl RDW 14.1 (11.0-16.0) % Plt Count 209 (160-400) X10*3/uL MPV 10.9 (9.4-12.4) fL Immature Gran % (Auto) 0.4 (0.0-0.4) % Neut % (Auto) 81.7 H (45-73) % Lymph % (Auto) 11.7 L (20-40) % [place] % (Auto) 5.2 (2-11) % Eos % (Auto) 0.5 (0-4) % Baso % (Auto) 0.5 (0-2) % Lymph # (Auto) 1.0 L (1.2-4.9) X10*3/uL [place] # (Auto) 0.4 (0.1-1.2) X10*3/uL Eos # (Auto) 0.0 (0.0-0.4) X10*3/uL Baso # (Auto) 0.0 (0.0-0.2) X10*3/uL Abs Immat Gran (auto) 0.03 (0.00-0.03) X10*3/uL Absolute Neuts (auto) 6.9 (2.0-8.3) x10*3/uL Absolute Nucleated RBC 0.000 (0.0-0.012) X10*3/uL Nucleated RBC % (auto) 0.0 (0.0-0.2) /100WBC PT 11.6 (10.9-12.4) SEC INR 1.0 (0.9-1.1) Sodium 138 (135-145) mmol/L Potassium 3.9 (3.3-5.1) mmol/L Chloride 103 (96-108) mmol/L Carbon Dioxide 25 (22-29) mmol/L Anion Gap 14 (12-20) BUN 24 H (9-16) mg/dL Creatinine 1.16 (0.5-1.4) mg/dL Estim Creat Clear Calc 59.7 Estimated GFR > 60 Random Glucose 125 H (60-115) mg/dL Calcium 9.2 (8.4-10.2) mg/dL Total Bilirubin 1.6 H (0.0-1.0) mg/dL AST 34 (5-37) U/L ALT 38 (0-40) U/L Alkaline Phosphatase 85 (39-117) U/L Troponin I High Sens 9.8 D (<3.5-35.0) ng/L B-Natriuretic Peptide 1468 H (<100) pg/mL Total Protein 7.2 (6.5-8.0) g/dL Albumin 4.3 (3.5-5.0) g/dL Independent Interpretation I performed an independent interpretation of an: EKG and Plain X-Ray Interpretation: My interpretation is in agreement with the radiologist's impression of this imaging study. L EXAMINATION: XR CHEST CLINICAL INFORMATION: chest pain COMPARISON: 10/02/2024, 05/02/2023. TECHNIQUE: Frontal view of the chest was obtained. FINDINGS: Single lead AICD device in the left hemithorax, with lead extending into the right ventricle. There is cardiomegaly. The aorta is calcified and mildly tortuous. There is vascular congestion in the hilar regions bilaterally. Mildly increased interstitial markings throughout both lungs, with hazy appearance and Pepe B lines in the lung bases. No pneumothorax or effusion. No focal osseous or soft tissue abnormality. XR/XR chest 1V IMPRESSION: Single lead AICD device with lead in the right ventricle. Cardiomegaly with mild interstitial pulmonary edema suspected. No effusions or consolidations. Electronically signed by: Aman Garcia MD 02/27/2025 12:21 PM EDT Dictated By: Aman Garcia MD Signed By: Electronically signed by Aman Garcia MD 02/27/25 1221 I independently interpreted this EKG and am in agreement with the below findings: Vent. Rate: 89 BPM Atrial Rate: 90 BPM P-R Int: 256 ms QRS Dur: 192 ms QT Int: 466 ms P-R-T Axes: 44 144 -14 degrees QTcB Int: 566 ms Undetermined rhythm Right bundle branch block Septal infarct , age undetermined Lateral infarct (cited on or before 02-Oct-2024) T wave abnormality, consider inferior ischemia When compared with ECG of 02-Oct-2024 09:28, Current undetermined rhythm precludes rhythm comparison, needs review Right bundle branch block has replaced Non-specific intra-ventricularconduction block Septal infarct is now Present DD/ 1004 I independently interpreted this EKG and am in agreement with the below findings: Vent. Rate: 56 BPM Atrial Rate: 56 BPM P-R Int: 288 ms QRS Dur: 148 ms QT Int: 516 ms P-R-T Axes: 53 -13 135 degrees QTcB Int: 497 ms Sinus bradycardia with 1st degree A-V block Left bundle branch block When compared with ECG of 27-Feb-2025 10:04, Previous ECG has undetermined rhythm, needs review Left bundle branch block has replaced Right bundle branch block Criteria for Septal infarct are no longer Present Criteria for Lateral infarct are no longer Present DD/ 1234 Radiology Impression Discussion of test interpretation with radiology: I have reviewed the radiologist's reading. Critical Care Time Critical Care Time Critical Care Time: Yes Total Critical Care Time: 44 Attestation: I spent 44 minutes of Critical Care Time with this patient. This does not include time spent on separately reported billable procedures. Discharge Plan Discharge Clinical Impression: Chest pain, Acute exacerbation of congestive heart failure Patient Disposition: Admitted As Inpatient
[2025-02-27 10:50] LABS: MANUAL DIFF FLAG NO
[2025-02-27] MEDS: Nitroglycerin 0.4 MG TAB.SUBL SUBLINGUAL (10:50)
[2025-02-27 10:52] LABS: Basophils Percent Auto 0.5 % (0-2); Eosinophils Percent Auto 0.5 % (0-4); Hematocrit 42.3 % (42.0-52.0); Hemoglobin 14.8 g/dl (14.0-18.0); Imm Gran Abs Auto 0.03 X10*3/uL (0.00-0.03); Imm Gran Pct Auto 0.4 % (0.0-0.4); Lymphocytes Percent Auto 11.7 % (20-40); Mean Corpuscular Hemoglobin 31.2 pg (27.0-33.0); Mean Corpuscular Volume 89.1 fL (80.0-98.0); Mean Platelet Volume 10.9 fL (9.4-12.4); Monocytes Absolute Auto 0.4 X10*3/uL (0.1-1.2); Monocytes Percent Auto 5.2 % (2-11); Neutrophils Absolute Auto 6.9 x10*3/uL (2.0-8.3); Neutrophils Percent Auto 81.7 % (45-73); Platelet Count 209 X10*3/uL (160-400); Red Blood Count 4.75 X10*6/uL (4.60-5.80); Red Cell Distribution Width 14.1 % (11.0-16.0); White Blood Count 8.5 X10*3/uL (4.8-10.8)
[2025-02-27 11:04] VITALS: BP 100/64
[2025-02-27 11:08] LABS: Alanine Aminotransferase 38 U/L (0-40); Albumin Level 4.3 g/dL (3.5-5.0); Alkaline Phosphatase 85 U/L (39-117); Anion Gap 14 (12-20); Aspartate Amino Transferase 34 U/L (5-37); Bilirubin Total 1.6 mg/dL (0.0-1.0); Blood Urea Nitrogen 24 mg/dL (9-16); Calcium 9.2 mg/dL (8.4-10.2); Carbon Dioxide 25 mmol/L (22-29); Chloride 103 mmol/L (96-108); Creatinine Clr Calc Pharmacy 59.7; Estimated Glomerular Filt Rate > 60; Glucose Random 125 mg/dL (60-115); Potassium 3.9 mmol/L (3.3-5.1); Sodium 138 mmol/L (135-145); Total Protein 7.2 g/dL (6.5-8.0)
[2025-02-27 11:10] LABS: Prothrombin Time 11.6 SEC (10.9-12.4)
[2025-02-27 11:12] LABS: B Type Natriuretic Peptide 1468 pg/mL (<100); Troponin-I High Sensitivity 9.8 ng/L (<3.5-35.0)
--- NOTE | 2025-02-27 11:29 | ECG_ITS ---
Test Reason : REPEAT CHEST PAIN Blood Pressure : */* mmHG Vent. Rate : 56 BPM Atrial Rate : 56 BPM P-R Int : 288 ms QRS Dur : 148 ms QT Int : 516 ms P-R-T Axes : 53 -13 135 degrees QTcB Int : 497 ms Sinus bradycardia with 1st degree A-V block Left bundle branch block Abnormal ECG When compared with ECG of 27-Feb-2025 10:04, rhythm change Referred By: Lynette Ortega Electronically Signed By: HENNY SANDHU
--- NOTE | 2025-02-27 11:53 | P.CONCA_ITS ---
History of Present Illness History of Present Illness Date of Service: 02/27/25 Chief complaint: Chest Pain SOB Narrative: This is a cardiology consultation regarding chest discomfort. Generally seen by Dr. Anne. He has a history of coronary artery disease with prior stent to RCA and more recently to the LAD. Has a history of congestive heart failure. Ventricular arrhythmias for which she has been put on Amiodarone. Has an ICD in place. 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 When he came he was still having significant chest discomfort after that, received sublingual nitroglycerin. Following this, it seems that improved. He still has some low- grade discomfort but I am much improved since the time of presentation. Not clear if there was also an additional shortness of breath but chest discomfort apparently was the most significant complaint. His last cardiac catheterization was in October of this year when he underwent LAD stent placement. Review of Systems 2 Review of Systems: Yes all other systems are reviewed and are negative Constitutional: Constitutional: Reports as per HPI and Reports no additional constitutional complaints Eyes: Eyes: Reports as per HPI and Denies no additional eye complaints ENT: Denies system reviewed and no additional complaints, except as documented and Reports as per HPI Cardiovascular: Cardiovascular: Reports as per HPI, Reports no additional cardiovascular complaints, Denies acrocyanosis, Denies cool extremities, Reports chest pain, Denies leg edema, Denies lightheadedness, Denies palpitations and Denies dyspnea Respiratory: Respiratory: Reports as per HPI, Denies no additional respiratory complaints and Denies dyspnea Gastrointestinal: Gastrointestinal: Reports as per HPI and Denies no additional gastrointestinal complaints Genitourinary: Genitourinary: Reports no additional male genitourinary complaints and Reports as per HPI Musculoskeletal: Musculoskeletal: Reports no additional musculoskeletal complaints and Reports as per HPI Integumentary/Breasts: Skin/Breast: Reports system reviewed and no additional complaints, except as docu Neurologic: Reports system reviewed and no additional complaints, except as documented and Reports as per HPI Psychiatric: Psychiatric: Reports no additional psychiatric complaints and Reports as per HPI Endocrine: Endocrine: Reports no additional endocrine complaints, Reports as per HPI and Denies palpitations Hematologic/Lymphatic: Hematologic/Lymphatic: Reports no additional hematologic/lymphatic complaints and Reports as per HPI Allergic/Immunologic: Allergic/Immunologic: Reports no additional allergic/immunologic complaints and Reports as per HPI [facility] Past Medical History Medical History 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 Mother No problems noted. Surgical History Surgical History Stented coronary artery S/P cardiac cath Hx of cardiac catheterization Social History Social History Household Members: None Housing: Apartment Do you presently have visiting nurse or other home services: Yes Alcohol intake: current Alcohol intake frequency: a few times a month Alcohol type: beer Patient Tobacco Use Status: Never used Tobacco e-Cigarette/Vaping Use: Never Used Second Hand Smoke Exposure: No Substance Use Type: Marijuana Advance Directives: No Advance Directives Information Provided: Yes service: No Current occupational status: disabled Meds Allergies Allergy/AdvReac Type Severity Reaction Status Date / Time No Known Allergies Allergy Verified 02/27/25 10:03 Active Medications: Current Medications Nitroglycerin (Nitroglycerin 0.4 Mg Tab.Subl) 0.4 mg SUBLINGUAL Q5MX3 PRN PRN Reason: Chest Pain Last Admin: 02/27/25 10:50 Dose: 0.4 mg Home Medications ?Medication ?Instructions ?Recorded ?Confirmed ?Last Taken ?Type aspirin 81 mg tablet,delayed 81 mg PO DAILY 08/18/20 02/13/25 09/29/24 History release (Adult Low Dose Aspirin) ezetimibe 10 mg tablet 10 mg PO DAILY 08/18/20 02/13/25 09/29/24 History rosuvastatin 40 mg tablet 40 mg PO BEDTIME 08/18/20 02/13/25 09/29/24 History omeprazole 40 mg capsule,delayed 40 mg PO DAILY PRN Acid Reflux 10/02/24 02/13/25 09/29/24 History release Physical Exam 2 Vital Signs: Vital Signs: Last Vital Signs Temp 97.6 F 02/27/25 09:59 Pulse 98 02/27/25 09:59 Resp 18 02/27/25 09:59 BP 100/64 02/27/25 11:04 Pulse Ox 100 02/27/25 09:59 O2 Del Method Room Air 02/27/25 09:59 BMI result Body Mass Index 28.5 Const: General: comfortable and no acute distress O rientation/consciousness: patient oriented x3 HEENT: Other: Unremarkable Head: Yes normal to inspection Neck: Neck: Yes normal visual inspection Chest: Chest palpation & inspection: normal inspection of the chest Resp: Auscultation: clear to auscultation bilaterally Cardio: Palpation: normal PMI Heart sounds: S1 normal heart sound present, S2 normal heart sound present, no gallops, no murmurs and no rubs GI: Palpation (GI): Soft to palpation Back/Spine/Pelvis: Other: unremarkable Skin: General skin exam: no rashes or lesions noted Neuro: General: patient oriented x3 Extrem: General: Yes normal to inspection Psych: Mental Status: mental status grossly normal Objective Labs and Meds 02/27/25 10:47 02/27/25 10:47 Lab results: Laboratory Results - last 24 hr 02/27/25 10:47 WBC 8.5 RBC 4.75 Hgb 14.8 Hct 42.3 MCV 89.1 MCH 31.2 MCHC 35.0 RDW 14.1 Plt Count 209 MPV 10.9 Immature Gran % (Auto) 0.4 Neut % (Auto) 81.7 H Lymph % (Auto) 11.7 L [place] % (Auto) 5.2 Eos % (Auto) 0.5 Baso % (Auto) 0.5 Lymph # (Auto) 1.0 L [place] # (Auto) 0.4 Eos # (Auto) 0.0 Baso # (Auto) 0.0 Abs Immat Gran (auto) 0.03 Absolute Neuts (auto) 6.9 Absolute Nucleated RBC 0.000 Nucleated RBC % (auto) 0.0 PT 11.6 INR 1.0 Sodium 138 Potassium 3.9 Chloride 103 Carbon Dioxide 25 Anion Gap 14 BUN 24 H Creatinine 1.16 Estim Creat Clear Calc 59.7 Estimated GFR > 60 Random Glucose 125 H Calcium 9.2 Total Bilirubin 1.6 H AST 34 ALT 38 Alkaline Phosphatase 85 Troponin I High Sens 9.8 D B-Natriuretic Peptide 1468 H Total Protein 7.2 Albumin 4.3 ECG Interpretation: In the initial EKG, underlying rhythm is difficult to see. Could be underlying atrial flutter with a rate somewhere in the 200s. Overall ventricular rate is 89/Min. PVCs as well. Could have some fusion beats. In the distribution technician viral was evaluated in the room, he seem to be in sinus rhythm. Assessment and Plan (1) Precordial chest pain: Status: Acute (2) CAD (coronary artery disease): Status: Acute (3) Cardiomyopathy: Status: Acute (4) ICD (implantable cardioverter-defibrillator) in place: Status: Acute (5) Atrial arrhythmia: Status: Acute Plan As mentioned above, atrial EKG shows probable atrial flutter but difficult to say. There are frequent PVCs, possible effusion beats extra. On telemetry he had converted to rather sinus rhythm. Hence it is possible that the above arrhythmia might have put him in congestive heart failure causing him the chest pressure. Less likely ACS but control out either. He has got normal initial set of troponins. Also, in the recent catheterization from October, single-vessel CAD involving proximal LAD status post PCI. Patent proximal RCA stent. He did not really have any other lesions to trigger the current chest discomfort. Hence overall, we can start him on anticoagulation for atrial flutter. Could start with Lovenox till we make sure there is no troponin leak. Then switched to Eliquis. Continue amiodarone. Nitroglycerin/morphine for the chest discomfort itself. IV diuretic x 1 dose. Admitted for further care. Procedures Date of Service Date of Service: 02/27/25
[2025-02-27] MEDS: Morphine Sulfate 2 MG/ML CARTRIDGE IVPUSH (11:57)
--- OUTSIDE RECORDS SUMMARY | 2025-02-27 12:11 | XMS_ITS ---
Author Organization [facility] Address [address] [place] [address] Care Team Providers Care Horses Or Mules Teamster Name Role Phone Imelda Sepulveda Primary Care Provider Unavailab Fabio Amin Unavailable [phone] REASON FOR VISIT INDUSTRIAL ENGINEER PPWK Entered Encounters Encounter Location Date Provider Diagnosis [facility] [address] [place] [address] 08/14/2024 Fabio Silverio Plan Of Treatment No Information Progress Notes * Sayda SIMMSOB:[birth year] (69 yo M)Acc No.[id number]:08/14/2024 Patient:?Darinel Simms :1955???Age:69 Y???Sex:Male [address]:[address] [place], [place] [address], [place] [address] * true * Date:? Generated for Printi ng/Falavong/eTransmitting on:?02/27/2025 12:11 PM EDT
--- OUTSIDE RECORDS SUMMARY | 2025-02-27 12:11 | XMS_ITS ---
Author Organization [facility] Address [address] [place] [id number] Care Team Providers Care Tunnel Kiln Repairer Name Role Phone Imelda Sepulveda Primary Care Provider Unavailab Fabio Amin Unavailable [phone] REASON FOR VISIT cx appt 11/16/24 Encounters Encounter Location Date Provider Diagnosis [address] [address] 11/15/2024 Fabio Silverio Plan Of Treatment No Information Progress Notes * Pratik SIMMSgeDOB:[birth year] (69 yo M)Acc No.[id number]:11/15/2024 Patient:?Darinel SIMMS :1955???Age:69 Y???Sex:Male Address:[address] [place], [place] [address] [address] * true * Date:? Generated for Obiei cesar/Carter/eTransmitting on:?02/27/2025 12:11 PM EDT
--- OUTSIDE RECORDS SUMMARY | 2025-02-27 12:11 | XMS_ITS | Patient Health Record ---
Author Organization [facility] Address [address] [place] [address] Care Team Providers Care Surface Supply Breathing Apparatus Name Role Phone Imelda Sepulveda Primary Care Provider Unavailab Fabio Amin Unavailable [phone] Reason For Referral No Information Medications Medication [...] No Encounters Encounter Location Date Provider Diagnosis [facility] [address] [place] [address] 08/14/2024 Fabio Silverio [facility] [address] [place] [address] 11/15/2024 Fabio Silverio Plan Of Treatment No Information Insurance Providers Payer Name Payer Address Payer Phone Subscriber Number Group Number Insured Name Patient Relationship to Insured Coverage Start Date Coverage End Date [facility] [employer] Claims [address] [place] [phone] [facility] [id number] Trenton Dasilva Self - patient is the insured Medical (General) History Medical History History ICD Code Heart disease High Blood Pressure Stroke Surgical History Surgery Date(Month/Year) cardiac pacemeker
--- OUTSIDE RECORDS SUMMARY | 2025-02-27 12:12 | XMS_ITS ---
Author Organization [facility] Address [address] [place] [address] Care Team Providers Care Electric Tape Slitter Name Role Phone Imelda Sepulveda Primary Care Provider Unavailab Fabio Amin Unavailable [phone] Medications Medication SIG (Take, Route, Frequency, Duration) [...] Encounters Encounter Location Date Provider Diagnosis [facility] [address] [place] [address] 11/16/2024 Fabio Silverio Plan Of Treatment No Information Progress Notes * Sayda SIMMSOB:[birth year] (70 yo M)Acc No.[id number]:11/16/2024 Progress Notes Patient:Darinel RITTER Provider:?Fabio Silverio DPM :1955???Age:69 Y???Sex:Male Partha e:11/16/2024 Address:[address] [place], [place] [address] Pcp:Imelda Sepulveda Subjective: * Chief Complaints: * [...] Silverio DPM Date:?2024 Generated for Jackie guerrero/Carter/Ronaldo on:?02/27/2025 12:11 PM EDT
--- NOTE | 2025-02-27 12:42 | PM.IMHP ---
History of Present Illness Date of Service: 02/27/25 Chief Complaint: chest pain A 70 years old malw with PMH of hypertension, hyperlipidemia, CAD s/p YOVANA placement in proximal LAD in 10/2024, CHF, history of AICD , CMP w LVEF 10-15% presenting with chest pain. Pain started last night, midchest, radiating to left side, with dyspnea, like heaviness on his chest, No palpitations, nausea, vomiting, diarrhea or urinary symptoms. no fever or chills. no syncope. In ED found to have abnormal EKG changes with ST depression and Right BBB with normal Trop and elevated BNP. Discussed with cardiology who suggested SL nitro which brought his pain from a 6 to a 4, 20mg of IV lasix, 2 mg of IV morphine, 1 dose of therapeutic lovenox, and admission for continued monitoring. and admitting him for close monitoring and 48 hours of full anticoagulation. 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 Mother No problems noted. Surgical History Stented coronary artery S/P cardiac cath Hx of cardiac catheterization Social History Household Members: None Housing: Apartment Do you presently have visiting nurse or other home services: Yes Alcohol intake: current Alcohol intake frequency: a few times a month Alcohol type: beer Patient Tobacco Use Status: Never used Tobacco e-Cigarette/Vaping Use: Never Used Second Hand Smoke Exposure: No Substance Use Type: Marijuana Advance Directives: No Advance Directives Information Provided: Yes service: No Current occupational status: disabled Meds Allergies Allergy/AdvReac Type Severity Reaction Status Date / Time No Known Allergies Allergy Verified 02/27/25 10:03 Active Medications: Current Medications Nitroglycerin (Nitroglycerin 0.4 Mg Tab.Subl) 0.4 mg SUBLINGUAL [id number] PRN PRN Reason: Chest Pain Last Admin: 02/27/25 10:50 Dose: 0.4 mg Home Medications ?Medication ?Instructions ?Recorded ?Confirmed ?Last Taken ?Type ezetimibe 10 mg tablet 10 mg PO DAILY 08/18/20 02/27/25 02/27/25 History rosuvastatin 40 mg tablet 40 mg PO BEDTIME 08/18/20 02/27/25 02/27/25 History acetaminophen 650 mg 650 mg PO TID PRN pain 02/27/25 02/27/25 02/27/25 History tablet,extended release aspirin 81 mg chewable tablet 1 tab PO DAILY 02/27/25 02/27/25 02/27/25 History empagliflozin 10 mg tablet 10 mg PO DAILY 02/27/25 02/27/25 02/27/25 History (Jardiance) furosemide 80 mg tablet 80 mg PO DAILY 02/27/25 02/27/25 02/27/25 History ivabradine 5 mg tablet (Corlanor) 5 mg PO BID 02/27/25 02/27/25 02/27/25 History ticagrelor 90 mg tablet (Brilinta) 90 mg PO BID 02/27/25 02/27/25 02/27/25 History Physical Exam Vital Signs and Narrative: Vital Signs: Last Vital Signs Temp 97.6 F 02/27/25 09:59 Pulse 98 02/27/25 09:59 Resp 18 02/27/25 09:59 BP 100/64 02/27/25 11:04 Pulse Ox 100 02/27/25 09:59 O2 Del Method Room Air 02/27/25 09:59 BMI result Body Mass Index 28.5 Const: Other: Constitutional : Awake, interactive, in mild distress Neck : Normal inspection, Supple Cardiovascular : RRR, no JVP, trace lower extremity edema Respiratory : good bilateral air entry, fine basal crackles, wheezes or rhonchi Gastrointestinal: soft, lax, Normal bowel sounds, Non tender Skin : Warm, Dry Neurological : Alert & oriented x3, No focal deficit Results Labs 02/27/25 10:47 02/27/25 10:47 Labs: Laboratory Results - last 24 hr 02/27/25 10:47 MCV 89.1 MCH 31.2 MCHC 35.0 RDW 14.1 Plt Count 209 MPV 10.9 Immature Gran % (Auto) 0.4 Neut % (Auto) 81.7 H Lymph % (Auto) 11.7 L [place] % (Auto) 5.2 Eos % (Auto) 0.5 Baso % (Auto) 0.5 Lymph # (Auto) 1.0 L [place] # (Auto) 0.4 Eos # (Auto) 0.0 Baso # (Auto) 0.0 Abs Immat Gran (auto) 0.03 Absolute Neuts (auto) 6.9 Absolute Nucleated RBC 0.000 Nucleated RBC % (auto) 0.0 PT 11.6 INR 1.0 Anion Gap 14 Estim Creat Clear Calc 59.7 Estimated GFR > 60 Random Glucose 125 H Calcium 9.2 Total Bilirubin 1.6 H AST 34 ALT 38 Alkaline Phosphatase 85 B-Natriuretic Peptide 1468 H Total Protein 7.2 Albumin 4.3 Imaging Radiologist's Impressions: Impressions Chest X-Ray 02/27/25 11:04 IMPRESSION: Single lead AICD device with lead in the right ventricle. Cardiomegaly with mild interstitial pulmonary edema suspected. No effusions or consolidations. Electronically signed by: Aman Garcia MD 02/27/2025 12:21 PM EDT RP Assessment and Plan (1) Acute exacerbation of congestive heart failure: Status: Acute (2) Chest pain: Status: Acute (3) Cardiomyopathy: Status: Acute Plan A 70 years old malw with PMH of hypertension, hyperlipidemia, CAD s/p YOVANA placement in proximal LAD in 10/2024, CHF, history of AICD , CMP w LVEF 10-15% presenting with chest pain. Unstable angina chest pain with abnormal EKG recent YOVANA on 10/2024 Keep on Tele ASA, Brilinta, Statin Cardiology consult Full dose Lovenox NTG and morphine prn repeat EKG and Trop for pain Acute on chronic combined systolic and diastolic CHF execerebation Elevated BNP Continue iv lasix follow BNP coreg 6.25 ,hold entersto for now HLD continue statin. DVT PPx Lovenox full dose The patient will need 2 overnight hospital stay for treatment of unstable angina on full dose anticoagulation and IV lasix for heart failure exacerbation pending cardiology consult Quality Stroke Does the patient have a stroke diagnosis?: No VTE Prior VTE?: No VTE Risk Level:: Medical - moderate - high VTE Device Contraindication: Treatment Not Indicated VTE Drug Contraindication: N/A - Med Ordered
[2025-02-27] MEDS: Furosemide 20 MG/2 ML VIAL IVPUSH (12:43)
[2025-02-27] MEDS: Enoxaparin Sodium 80 MG/0.8 ML SYRINGE SUBCUT (12:43)
[2025-02-27 13:29] LABS: Troponin-I High Sensitivity 12.5 ng/L (<3.5-35.0)
[2025-02-27 15:02] VITALS: BP 115/82; PULSE 62; RESP 14; TEMP 36.6; O2SAT 98
--- NOTE | 2025-02-27 15:06 | PHA.MEDREC ---
Addendum entered by [facility] 02/27/25 15:21: Reviewed by [facility] Original Note: Pharmacy Consult ? Medication Reconciliation Pharmacy has completed the medication reconciliation. Spoke to patient through water plant pump operator supervisor service (Elisabeth) to confirm med list. Patient is a poor historian. Patient states he fills his medications at [facility] pharmacy. Utilized list from [facility] pharmacy to confirm med rec.
[2025-02-27] MEDS: 0.9 % Sodium Chloride Flush 3 ML SYRINGE IVFLUSH (16:38)
[2025-02-27 19:45] VITALS: BP 115/68; PULSE 72; RESP 16; TEMP 36.6; O2SAT 97
[2025-02-27 20:49] VITALS: BP 103/69; PULSE 71
[2025-02-27] MEDS: Sacubitril/Valsartan 24/26 1 TAB TABLET PO (20:49)
[2025-02-27] MEDS: Ticagrelor 90 MG TABLET PO (20:49)
[2025-02-27] MEDS: Atorvastatin Calcium 80 MG TABLET PO (20:49)
[2025-02-27] MEDS: carvediloL 6.25 MG TABLET PO (20:49)
--- NOTE | 2025-02-27 20:55 | PC.NURSE ---
Medicated per Dec. Pt awaiting transport to room assignment.
[2025-02-27 21:49] VITALS: BMI 27.2
[2025-02-27] MEDS: Acetaminophen 325 MG TABLET 650 MG PO (22:56)
[2025-02-27 23:08] VITALS: BP 123/72; PULSE 71; RESP 18; TEMP 36.3; O2SAT 96
[2025-02-28] MEDS: 0.9 % Sodium Chloride Flush 3 ML SYRINGE IVFLUSH ×3 (00:55→12:44)
[2025-02-28] MEDS: Enoxaparin Sodium 80 MG/0.8 ML SYRINGE SUBCUT ×2 (00:55→12:43)
[2025-02-28 03:34] VITALS: BP 100/64; PULSE 62; RESP 18; TEMP 36.2; O2SAT 97
[2025-02-28 07:08] LABS: MANUAL DIFF FLAG NO
[2025-02-28 07:13] LABS: Basophils Absolute Auto 0.1 X10*3/uL (0.0-0.2); Basophils Percent Auto 0.7 % (0-2); Eosinophils Absolute Auto 0.1 X10*3/uL (0.0-0.4); Eosinophils Percent Auto 0.8 % (0-4); Hematocrit 45.6 % (42.0-52.0); Hemoglobin 15.5 g/dl (14.0-18.0); Imm Gran Abs Auto 0.02 X10*3/uL (0.00-0.03); Imm Gran Pct Auto 0.3 % (0.0-0.4); Lymphocytes Absolute Auto 1.3 X10*3/uL (1.2-4.9); Lymphocytes Percent Auto 16.7 % (20-40); Mean Corpuscular Hemoglobin 31.1 pg (27.0-33.0); Mean Corpuscular Volume 91.4 fL (80.0-98.0); Mean Platelet Volume 11.6 fL (9.4-12.4); Monocytes Absolute Auto 0.6 X10*3/uL (0.1-1.2); Monocytes Percent Auto 8.2 % (2-11); Neutrophils Absolute Auto 5.6 x10*3/uL (2.0-8.3); Neutrophils Percent Auto 73.3 % (45-73); Platelet Count 215 X10*3/uL (160-400); Red Blood Count 4.99 X10*6/uL (4.60-5.80); Red Cell Distribution Width 14.1 % (11.0-16.0); White Blood Count 7.7 X10*3/uL (4.8-10.8)
[2025-02-28 07:21] VITALS: BP 100/66; PULSE 64; RESP 15; TEMP 36.3; O2SAT 96
[2025-02-28 07:28] LABS: Alanine Aminotransferase 29 U/L (0-40); Alkaline Phosphatase 67 U/L (39-117); Anion Gap 13 (12-20); Aspartate Amino Transferase 24 U/L (5-37); Bilirubin Total 1.8 mg/dL (0.0-1.0); Blood Urea Nitrogen 23 mg/dL (9-16); Carbon Dioxide 24 mmol/L (22-29); Chloride 105 mmol/L (96-108); Creatinine Clr Calc Pharmacy 80.6; Estimated Glomerular Filt Rate > 60; Glucose Random 94 mg/dL (60-115); Sodium 138 mmol/L (135-145)
[2025-02-28] MEDS: Ticagrelor 90 MG TABLET PO (09:00)
[2025-02-28] MEDS: Empagliflozin 10 MG TABLET PO (09:00)
[2025-02-28] MEDS: Amiodarone HCL 200 MG TABLET PO (09:00)
[2025-02-28] MEDS: Ezetimibe 10 MG TABLET PO (09:00)
[2025-02-28] MEDS: Sacubitril/Valsartan 24/26 1 TAB TABLET PO (09:00)
[2025-02-28] MEDS: Furosemide 20 MG/2 ML VIAL IVPUSH (09:00)
[2025-02-28] MEDS: carvediloL 6.25 MG TABLET PO (09:00)
[2025-02-28] MEDS: Aspirin 81 MG TAB.CHEW PO (09:00)
[2025-02-28] MEDS: Acetaminophen 325 MG TABLET 650 MG PO (09:03)
--- NOTE | 2025-02-28 10:14 | P.PNCA_ITS ---
Subjective Subjective Date of Service: 02/28/25 Interval history: Patient states that he feels well. He does not have any chest pain or in fact any other complaints at this time. Seems all resolved. Review of Systems Review of Systems Yes all other systems are reviewed and are negative Constitutional: Reports as per HPI and Reports no additional constitutional complaints Eyes: Reports as per HPI and Denies no additional eye complaints Denies system reviewed and no additional complaints, except as documented and Reports as per HPI Cardiovascular: Reports as per HPI, Reports no additional cardiovascular complaints, Denies acrocyanosis, Denies cool extremities, Denies chest pain, Denies leg edema, Denies lightheadedness, Denies palpitations and Denies dyspnea Respiratory: Reports as per HPI, Denies no additional respiratory complaints and Denies dyspnea Gastrointestinal: Reports as per HPI and Denies no additional gastrointestinal complaints Genitourinary: Reports no additional male genitourinary complaints and Reports as per HPI Musculoskeletal: Reports no additional musculoskeletal complaints and Reports as per HPI Skin/Breast: Reports system reviewed and no additional complaints, except as docu Reports system reviewed and no additional complaints, except as documented and Reports as per HPI Psychiatric: Reports no additional psychiatric complaints and Reports as per HPI Endocrine: Reports no additional endocrine complaints, Reports as per HPI and Denies palpitations Hematologic/Lymphatic: Reports no additional hematologic/lymphatic complaints and Reports as per HPI Allergic/Immunologic: Reports no additional allergic/immunologic complaints and Reports as per HPI Physical Exam Vital Signs: Last Vital Signs Temp 97.3 F 02/28/25 07:21 Pulse 64 02/28/25 07:21 Resp 15 02/28/25 07:21 BP 100/66 02/28/25 07:21 Pulse Ox 96 02/28/25 07:21 O2 Del Method Room Air 02/28/25 07:21 BMI result Body Mass Index 27.2 Const General: comfortable and no acute distress Orientation/consciousness: patient oriented x3 HEENT Other: Unremarkable Head: Yes normal to inspection Neck Neck: Yes normal visual inspection Chest Chest palpation & inspection: normal inspection of the chest Resp Other: Minimal basal crackles Cardio Palpation: normal PMI Heart sounds: S1 normal heart sound present, S2 normal heart sound present, no gallops, no murmurs and no rubs GI Palpation (GI): Soft to palpation Back/Spine/Pelvis Other: unremarkable Skin General skin exam: no rashes or lesions noted Neuro General: patient oriented x3 Extrem General: Yes normal to inspection Psych Mental Status: mental status grossly normal Objective Labs and Meds 02/28/25 06:33 02/28/25 06:33 Lab results: Laboratory Results - last 24 hr 02/27/25 02/27/25 02/28/25 10:47 13:01 06:33 WBC 8.5 7.7 RBC 4.75 4.99 Hgb 14.8 15.5 Hct 42.3 45.6 MCV 89.1 91.4 MCH 31.2 31.1 MCHC 35.0 34.0 RDW 14.1 14.1 Plt Count 209 215 MPV 10.9 11.6 Immature Gran % (Auto) 0.4 0.3 Neut % (Auto) 81.7 H 73.3 H Lymph % (Auto) 11.7 L 16.7 L [place] % (Auto) 5.2 8.2 Eos % (Auto) 0.5 0.8 Baso % (Auto) 0.5 0.7 Lymph # (Auto) 1.0 L 1.3 [place] # (Auto) 0.4 0.6 Eos # (Auto) 0.0 0.1 Baso # (Auto) 0.0 0.1 Abs Immat Gran (auto) 0.03 0.02 Absolute Neuts (auto) 6.9 5.6 Absolute Nucleated RBC 0.000 0.000 Nucleated RBC % (auto) 0.0 0.0 PT 11.6 INR 1.0 Sodium 138 138 Potassium 3.9 4.0 Chloride 103 105 Carbon Dioxide 25 24 Anion Gap 14 13 BUN 24 H 23 H Creatinine 1.16 0.78 Estim Creat Clear Calc 59.7 80.6 Estimated GFR > 60 > 60 Random Glucose 125 H 94 Calcium 9.2 9.0 Total Bilirubin 1.6 H 1.8 H AST 34 24 ALT 38 29 Alkaline Phosphatase 85 67 Troponin I High Sens 9.8 D 12.5 B-Natriuretic Peptide 1468 H Total Protein 7.2 7.0 Albumin 4.3 4.0 Imaging Radiologist's impression: Impressions Chest X-Ray 02/27/25 11:04 IMPRESSION: Single lead AICD device with lead in the right ventricle. Cardiomegaly with mild interstitial pulmonary edema suspected. No effusions or consolidations. Electronically signed by: Aman Garcia MD 02/27/2025 12:21 PM EDT RP Progress Note: A&P Assessment and plan (1) Precordial chest pain: Status: Acute (2) CAD (coronary artery disease): Status: Acute (3) Cardiomyopathy: Status: Acute (4) ICD (implantable cardioverter-defibrillator) in place: Status: Acute (5) Atrial arrhythmia: Status: Acute (6) Atrial flutter by electrocardiogram: Status: Acute Plan In the initial EKG upon presentation when he had the chest discomfort, probable atrial flutter but difficult to assess for sure. There were also frequent PVCs, some fusion beats among others. In EKG from September, again similar. In the subsequent EKG this admission, converted to sinus rhythm. It seems that the above arrhythmia probably put him in some heart failure / angina causing chest discomfort. After the rhythm converted he states he has improved. So far, there is no evidence of ACS. Troponins are unremarkable. In the recent catheterization from October, single-vessel CAD involving proximal LAD status post PCI. Patent proximal RCA stent. He did not really have any other lesions to trigger the current chest discomfort. For meds, he is already on amiodarone. We can go up on the dose to 400 mg daily for the now. Eliquis. Also on Coreg. Suspect he is going to need EP referral for further evaluation including EP study/possible flutter ablation. Follow up with his own hospital sales representative. Time Spent With Patient Time: Total time managing care of this patient today ____ minutes. Progress Note: Quality Stroke Does the patient have a stroke diagnosis?: No Procedures Date of Service Date of Service: 02/28/25
--- NOTE | 2025-02-28 11:30 | MHC.CM.PN ---
IMM 02/28/25 patient lives by himself. 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 He states that he has a steady gait and is independent. DP home resume CLOTH SHRINKING MACHINE OPERATOR services. Patient has arranged for transportation home.
[2025-02-28 11:32] VITALS: BP 108/72; PULSE 72; RESP 15; TEMP 36.2; O2SAT 96
--- NOTE | 2025-02-28 12:59 | PM.DS ---
DS: Providers Provider Date of Service: 02/28/25 Date of admission: 02/27/25 12:39 Date of discharge: 02/28/25 Primary care physician: Imelda Sepulveda MD Consults: 02/27/25 10:41 Consult to Cardiology Stat Consulting Provider: [facility] Reason for consultation: hx of recent stent placement, severe chest pain Has provider been notified: Yes 02/27/25 12:39 Consult to Cardiology Routine Consulting Provider: [facility] Reason for consultation: Chest pain, heart failure DS: Diagnosis Discharge Diagnosis (1) Precordial chest pain: Status: Acute (2) CAD (coronary artery disease): Status: Acute (3) Cardiomyopathy: Status: Acute (4) ICD (implantable cardioverter-defibrillator) in place: Status: Acute (5) Atrial arrhythmia: Status: Acute (6) Atrial flutter by electrocardiogram: Status: Acute DS: Summary Hospital Course Hospital Course: 70 years old malw with PMH of hypertension, hyperlipidemia, CAD s/p YOVANA placement in proximal LAD in 10/2024, CHF, history of AICD , CMP w LVEF 10-15% presenting with chest pain. Pain started last night, midchest, radiating to left side, with dyspnea, like heaviness on his chest, No palpitations, nausea, vomiting, diarrhea or urinary symptoms. no fever or chills. no syncope. In ED found to have abnormal EKG changes with ST depression and Right BBB with normal Trop and elevated BNP. Discussed with cardiology who suggested SL nitro which brought his pain from a 6 to a 4, 20mg of IV lasix, 2 mg of IV morphine, 1 dose of therapeutic lovenox, and admission for continued monitoring. and admitting him for close monitoring and 48 hours of full anticoagulation Hospital Course Admitted to telemetry and seen in consultation by Cardiology. Continued on Lovenox ultimately switched to Eliquis. Ultimately converted to sinus rhythm. As per cardiology recommendations he will be started on full-dose Eliquis and amiodarone we will be increased to 400 daily. He will follow up with his outpatient form setter/driver next available Time Attestation Discharge Coordination Time (in mins): 35 Quality: Safe Use of Opioids Does Pt have an Active Cancer Diagnosis on the Problem List?: No Quality: Stroke Does the patient have a stroke diagnosis?: No Physical Exam Vital Signs: Vital Signs: Last Vital Signs Temp 97.1 F 02/28/25 11:32 Pulse 72 02/28/25 11:32 Resp 15 02/28/25 11:32 BP 108/72 02/28/25 11:32 Pulse Ox 96 02/28/25 11:32 O2 Del Method Room Air 02/28/25 11:32 BMI result Body Mass Index 27.2 Const: Other: awake alert oriented x3 in no acute distress Resp: Other: clear to auscultation bilaterally no rales rhonchi or wheezes Cardio: Other: no S4; positive S1-S2; no S3 murmurs rubs or GI: Other: soft nontender nondistended normoactive bowel sounds Extrem: Other: no edema bilaterally DS: Data Data Completed and Pending Labs on day of discharge: Laboratory Results - last 24 hr 02/27/25 02/28/25 13:01 06:33 WBC 7.7 RBC 4.99 Hgb 15.5 Hct 45.6 MCV 91.4 MCH 31.1 MCHC 34.0 RDW 14.1 Plt Count 215 MPV 11.6 Immature Gran % (Auto) 0.3 Neut % (Auto) 73.3 H Lymph % (Auto) 16.7 L [place] % (Auto) 8.2 Eos % (Auto) 0.8 Baso % (Auto) 0.7 Lymph # (Auto) 1.3 [place] # (Auto) 0.6 Eos # (Auto) 0.1 Baso # (Auto) 0.1 Abs Immat Gran (auto) 0.02 Absolute Neuts (auto) 5.6 Absolute Nucleated RBC 0.000 Nucleated RBC % (auto) 0.0 Sodium 138 Potassium 4.0 Chloride 105 Carbon Dioxide 24 Anion Gap 13 BUN 23 H Creatinine 0.78 Estim Creat Clear Calc 80.6 Estimated GFR > 60 Random Glucose 94 Calcium 9.0 Total Bilirubin 1.8 H AST 24 ALT 29 Alkaline Phosphatase 67 Troponin I High Sens 12.5 Total Protein 7.0 Albumin 4.0 Discharge Plan Discharge Anticipated Discharge Date/Time: 02/28/25 12:38 Patient Disposition: Home Health Service Discharge Diagnosis: precordial chest pain Referrals: Imelda Sepulveda MD [Primary Care Provider] - 1 Week Discharge Medications: New amiodarone 400 mg tablet 400 mg PO DAILY Qty: 30 0RF Continued spironolactone 25 mg tablet 25 mg PO DAILY 90 Days Qty: 90 3RF Entresto 24-26 mg tablet 1 tab PO BID Qty: 180 1RF acetaminophen 650 mg tablet extended release 650 mg PO TID PRN (Reason: pain) furosemide 80 mg tablet 80 mg PO DAILY Brilinta 90 mg tablet 90 mg PO BID ivabradine [Corlanor] 5 mg tablet 5 mg PO BID Jardiance 10 mg tablet 10 mg PO DAILY aspirin 81 mg tablet,chewable 1 tab PO DAILY carvedilol 25 mg tablet 6.25 mg PO BID 90 Days Qty: 270 3RF Rx Instructions: must administer with a meal/food rosuvastatin 40 mg tablet 40 mg PO BEDTIME ezetimibe 10 mg tablet 10 mg PO DAILY Discontinued amiodarone 200 mg tablet 200 mg PO DAILY Qty: 30 5RF Discharge Orders: Discharge Order (Routine); Ordered 02/28/25 Ordered By: Chris Hammonds Diet: Advance to usual diet Activity on Discharge: As tolerated Stand Alone Forms: Patient Portal Discharge page Print Language: Other Care Plan Goals: Resume all meds as taken prior to hospital Health Concerns: Your amiodarone has been increased to 400 mg daily Plan of Treatment: follow up with your form setter/driver next available. He will discuss further treatments and changes Assessment: see discharge summary
== END 2025-02-28 13:16 | disposition home health service (06) | DRG 291 ==
LOC: HO.ED 12:17 → HO.EDOVER 14:05 → HO.IMC 20:02
PROVIDERS: Physician Assistant Medical; Admitting Provider Student in an Organized Health Care Education/Training Program; Emergency Provider Emergency Medicine; PCP Internal Medicine; Visit Provider Hospitalist
DX: I11.0 Hypertensive heart disease with heart failure (principal); I50.43 Acute on chronic combined systolic (congestive) and diastolic (congestive) heart failure; I48.92 Unspecified atrial flutter; I25.110 Atherosclerotic heart disease of native coronary artery with unstable angina pectoris; I42.8 Other cardiomyopathies; E78.5 Hyperlipidemia, unspecified; Z95.810 Presence of automatic (implantable) cardiac defibrillator; Z95.5 Presence of coronary angioplasty implant and graft; Z79.82 Long term (current) use of aspirin; Z79.899 Other long term (current) drug therapy
CPT/HCPCS: 36415; 71045; 80053; 83880; 84484; 85025; 85610; 93005; 99285; J1650; J1938; J2270

== ENCOUNTER → 2025-02-27 10:49 | Outpatient (BNV) | payer OTHER, SELFPAY | PROVIDERS: PCP Internal Medicine; Visit Provider Internal Medicine | DX: R07.2 Precordial pain (principal); I25.10 Atherosclerotic heart disease of native coronary artery without angina pectoris; I42.9 Cardiomyopathy, unspecified; Z95.810 Presence of automatic (implantable) cardiac defibrillator; I49.8 Other specified cardiac arrhythmias | CPT/HCPCS: 93010; 99223 ==

== ENCOUNTER → 2025-02-27 11:04 | Outpatient (BNV) | payer OTHER, SELFPAY | PROVIDERS: Emergency Provider Emergency Medicine; PCP Internal Medicine; Visit Provider Radiology Diagnostic Radiology | DX: I51.7 Cardiomegaly (principal) | CPT/HCPCS: 71045 ==

== ENCOUNTER → 2025-02-27 12:39 | Outpatient (BNV) | payer OTHER, SELFPAY | PROVIDERS: Admitting Provider Student in an Organized Health Care Education/Training Program; Emergency Provider Emergency Medicine; PCP Internal Medicine; Visit Provider Student in an Organized Health Care Education/Training Program | DX: R07.2 Precordial pain (principal); I25.10 Atherosclerotic heart disease of native coronary artery without angina pectoris; I42.9 Cardiomyopathy, unspecified; Z95.810 Presence of automatic (implantable) cardiac defibrillator; I49.8 Other specified cardiac arrhythmias; I48.92 Unspecified atrial flutter | CPT/HCPCS: 99223; 99239 ==

== ENCOUNTER → 2025-03-08 09:26 | Outpatient (BNVA) | payer OTHER, SELFPAY | PROVIDERS: PCP Internal Medicine; Visit Provider Internal Medicine Cardiovascular Disease ==

== ENCOUNTER → 2025-03-11 23:59 | Outpatient (BNV) | payer OTHER, SELFPAY ==
--- NOTE | 2025-03-12 10:46 | MHC.OFFVIS ---
Intake Visit Reasons: Remote ICD check- [facility] Allergies No Known Allergies Allergy (Verified 02/27/25 10:03) [facility] Medical History (Updated 03/12/25 @ 10:46 by Nash Anne MD) ICD (implantable cardioverter-defibrillator) in place Atrial flutter by electrocardiogram Cardiomyopathy Anomalous coronary artery origin Atherosclerotic cardiovascular disease Heart failure with reduced ejection fraction HLD (hyperlipidemia) Acute on chronic combined systolic and diastolic CHF (congestive heart failure) Nonischemic cardiomyopathy CAD (coronary artery disease) Hypertension Pacemaker Surgical History Stented coronary artery S/P cardiac cath Hx of cardiac catheterization Family History Father No problems noted. Mother No problems noted. 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 ICD function is adequate [id number] Cardiac Interrogation, implant defibrillator w/interim Procedure code (CPT) selection complete Assessment & Plan Assessment & Plan (1) ICD (implantable cardioverter-defibrillator) in place: Code(s): Z95.810 - Presence of automatic (implantable) cardiac defibrillator Category: Medical Plan: See above Coding Level of Care Code Procedure Only Diagnoses ICD (implantable cardioverter-defibrillator) in place Z95.810 CPT Codes Cardiac Device Check - Cardiac Device 13: [id number] Cardiac Interrogation, implant defibrillator w/interim ([id number])
== END ==
PROVIDERS: PCP Internal Medicine; Visit Provider Internal Medicine Cardiovascular Disease
DX: Z45.02 Encounter for adjustment and management of automatic implantable cardiac defibrillator (principal)
CPT/HCPCS: 93295

== ENCOUNTER 2025-03-28 08:56 | Outpatient (AMB) | payer OTHER, SELFPAY ==
[2025-03-28 09:28] VITALS: BP 118/60; PULSE 54; BMI 25.8
--- NOTE | 2025-03-28 09:28 | A.OFFVIS_ITS ---
Vital Signs 03/28/25 09:28 Height 5 ft 6 in Weight 160 lb BMI 25.8 BP 118/60 Blood Pressure Location Lt brachial Position Sitting Pulse 54 Pulse Source Monitor Intake Visit Reasons: follow-up [facility] dc Databases Software Consultant Required: Yes Databases Software Consultant Services: Databases Software Consultant Offered & Declined Accompanied by: Family/Other Allergies No Known Allergies Allergy (Verified 02/27/25 10:03) Medication List - Last Reconciled 03/28/25 by FRAN Welsh acetaminophen ER 650 mg PO TID PRN amiodarone 200 mg PO DAILY aspirin 1 tab PO DAILY carvedilol 6.25 mg (1/4 x 25 mg) PO BID 90 days empagliflozin (Jardiance) 10 mg PO DAILY ezetimibe 10 mg PO DAILY furosemide 80 mg PO DAILY ivabradine (Corlanor) 5 mg PO BID rosuvastatin 40 mg PO BEDTIME sacubitril-valsartan 24-26 mg (Entresto) 1 tab PO BID spironolactone 25 mg PO DAILY 90 days ticagrelor (Brilinta) 90 mg PO BID HPI HPI follow-up [facility] dc: Details: Trenton is a 70-year-old male with past medical history of hypertension, SVT, heart failure with reduced EF, nonischemic cardiomyopathy, ICD, ventricular arrhythmia and on amiodarone, CAD with RCA and LAD stent, who was recently admitted to [facility] with shortness of breath and chest discomfort. He was found to have abnormal EKG with atypical atrial flutter rhythm. He did convert back to sinus rhythm and had improvement in symptoms. He ruled out for ACS. His amiodarone was increased to 400 mg daily. Today he reports he has been doing well since his hospital discharge. He did notice a little short of breath and chest discomfort when going up a inclined during his walk recently. This was only 1 time and he has not had reoccurrence. He has no PND, orthopnea or edema. No lightheadedness, presyncope, syncope. No other chest discomfort. He has not notice any heart palpitations. He is taking his meds as directed. He is still on aspirin and was not put on Eliquis at time of discharge. [facility] Medical History ICD (implantable cardioverter-defibrillator) in place Atrial flutter by electrocardiogram Cardiomyopathy Anomalous coronary artery origin Atherosclerotic cardiovascular disease Heart failure with reduced ejection fraction HLD (hyperlipidemia) Acute on chronic combined systolic and diastolic CHF (congestive heart failure) Nonischemic cardiomyopathy CAD (coronary artery disease) Hypertension Pacemaker Surgical History Stented coronary artery S/P cardiac cath Hx of cardiac catheterization Family History Father No problems noted. Mother No problems noted. Social History Household Members: None Household Members Other:: Dog Housing: Apartment Do you presently have visiting nurse or other home services: Yes ([employer]) Alcohol intake: current Alcohol intake frequency: a few times a month Alcohol type: beer Patient Tobacco Use Status: Never used Tobacco e-Cigarette/Vaping Use: Never Used Second Hand Smoke Exposure: No Substance Use Type: Marijuana service: No Current occupational status: disabled Review of Systems Const All systems reviewed & are unremarkable except as noted in HPI and below Denies weakness ENT Denies dizziness Card Details: one episode of chest discomfort with walking up hill yesterday - lasted 30 min and relieved with Tylenol and rest Denies chest pain, Denies chest pain at rest, Reports chest pain with activity, Denies syncope, Denies rapid heart rate, Denies pedal edema, Denies edema, Denies leg edema, Denies lightheadedness, Denies palpitations, Denies dyspnea, Reports dyspnea on exertion and Denies orthopnea Resp Denies cough, Denies dyspnea and Reports dyspnea on exertion GI Denies hematochezia and Denies change in stool character Musc Denies abnormal gait, Denies muscle cramps, Denies muscle weakness, Denies numbness, Denies radiating pain into limb and Denies tingling Neuro Denies abnormal gait, Denies dizziness, Denies syncope, Denies numbness, Denies tingling and Denies weakness Endo Denies palpitations Physical Exam Vital Signs: Last Vital Signs Pulse 54 03/28/25 09:28 BP 118/60 03/28/25 09:28 BMI result Body Mass Index 25.8 Const General: cooperative, healthy appearing, comfortable and no acute distress Orientation/consciousness: patient oriented x3 Neck Neck: Yes normal visual inspection Resp Effort & Inspection: normal respiratory effort Auscultation: clear to auscultation bilaterally, no crackles, no rales, no rhonchi and no wheezes Cardio Jugular venous distension: no JVD Rate: regular rate Rhythm: regular rhythm Heart sounds: S1 normal heart sound present, S2 normal heart sound present, no gallops, no murmurs and no rubs Peripheral pulses: Peripheral pulses 2+ throughout Neuro General: patient oriented x3 Extrem General: Yes normal to inspection and No no pedal edema Psych Appearance: grossly normal Mental Status: mental status grossly normal Speech and movement: Normal speech and movement present Office Procedures EKG Details: Today, read by me, Sinus bradycardia, 1st degree avb, LBBB, rate 54, Qtc 491ms [id number], Complete Results Reviewed Results Reviewed: Echocardiogram 03/16/2024 Conclusions: - The left ventricular systolic function is severely decreased. The visually estimated ejection fraction is between 10-15%. - The inferoseptal wall, the basal anteroseptal, and mid anteroseptal segments are akinetic. - Severely increased left ventricular cavity size. - No obvious valvular pathology seen on this study. Assessment & Plan Assessment & Plan (1) Atrial flutter: Code(s): I48.92 - Unspecified atrial flutter Category: Medical Plan: New finding of atrial flutter rhythm at time of recent [facility] presentation with shortness of breath and chest discomfort. He did not have ACS or significant heart failure. He did convert back to sinus rhythm. His EKG done today is showing sinus bradycardia with first-degree AV block, left bundle branch block, rate 54, overall unchanged from prior. He was on amiodarone for ventricular arrhythmias and his dose was increased to 400 mg daily for the last month. At this time will have him reduce it down to 200 mg once daily. Will start on Eliquis 5 mg b.i.d.. Reviewed with Dr. Anne. Will refer him to electrophysiology to discuss atrial flutter ablation. Reviewed this diagnosis and treatment plan with him. (2) Heart failure with reduced ejection fraction: Code(s): I50.20 - Unspecified systolic (congestive) heart failure Category: Medical Plan: History of heart failure with reduced EF. Last echo showed EF 10-15%. ICD is in place. He isn't on appropriate guideline directed medical therapy. He does not appear fluid overloaded on examination. Continue Entresto, carvedilol, Aldactone, Jardiance for neurohormonal modulation. Labs done 02/28/2025 show potassium 4.0, creatinine 0.78. Signs and symptoms of heart failure reviewed with him. (3) Nonischemic cardiomyopathy: Code(s): I42.8 - Other cardiomyopathies Category: Medical Plan: Known history of nonischemic cardiomyopathy with last EF 10-15%. He has ICD and is on GDMT. (4) CAD (coronary artery disease): Code(s): I25.10 - Atherosclerotic heart disease of [place] coronary artery without angina pectoris Category: Medical Plan: History of coronary artery disease with stents placed to the RCA and LAD. No anginal symptoms at this time. Continue Brilinta uninterrupted for 1 year post stent, 10/2025. With the addition of Eliquis will have him stop aspirin. Continue rosuvastatin and Zetia with ideal LDL goal less than 70. Continue carvedilol. Continue carvedilol. Signs and symptoms of angina reviewed with him. (5) S/P cardiac cath: Comment: 10/25/2023, lad 60-70% stenosis, YOVANA placed, proximal RCA stent patent 2024 cardiac catheterization patent proximal RCA stent, proximal LAD stenosis with PCI and YOVANA placed. Code(s): Z98.890 - Other specified postprocedural states Category: Surgical Plan: Known CAD with stents to the RCA and LAD. Last catheterization 10/25/2024 when YOVANA placed to the LAD. (6) Stented coronary artery: Code(s): Z95.5 - Presence of coronary angioplasty implant and graft Category: Surgical Plan: As above (7) ICD (implantable cardioverter-defibrillator) in place: Code(s): Z95.810 - Presence of automatic (implantable) cardiac defibrillator Category: Medical Plan: [facility] ICD in place. He has remote monitoring in use. Last office check shows it is functioning normally. Next office interrogation due in next visit. (8) SVT (supraventricular tachycardia): Code(s): I47.1 - Supraventricular tachycardia Category: Medical Plan: History of supraventricular tachycardia as seen on remote monitoring. He is currently on carvedilol and Corlanor for heart rate control. No recent heart palpitations (9) Ventricular arrhythmia: Code(s): I49.9 - Cardiac arrhythmia, unspecified Category: Medical Plan: Episode of nonsustained ventricular tachycardia noted on remote monitoring July 2024. He was put on amiodarone at that time. No repeat NSVT since then. Labs from 10/02/2024 shows AST 28, ALT 20, TSH 0.7. Will need ongoing monitoring for amiodarone toxicity. (10) Hypertension: Code(s): I10 - Essential (primary) hypertension Category: Medical Plan: Blood pressure goal less than 130/80. Well controlled at this time. No med changes made (11) Hospital discharge follow-up: Code(s): Z09 - Encounter for follow-up examination after completed treatment for conditio ns other than malignant neoplasm Category: Medical Plan: Discharge summary reviewed Plan During the visit, I reviewed with the patient the importance of continued adherence to their current cardiovascular medication regime and to reduce the amiodarone dosing to 200mg daily. The patient was reassured that the recent exertional chest pain, while different from prior episodes, does not indicate immediate cardiac instability but should be causatively linked to physical exertion. We discussed the need to start on Eliquis to mitigate clot risks associated with atrial fibrillation. The patient understands the necessity to monitor symptoms and the importance of adjusting lifestyle activities to reduce strain, particularly when alone. We discussed referral to Electrophysiology to treat his atrial flutter rhythm. Orders: Referrals Cardiac Electrophysiology Referral I48.92 - Unspecified atrial flutter, Z95.810 - Presence of automatic (implantable) cardiac defibrillator Medications: New ticagrelor (Brilinta) Take uninterrupted until October 2025 90 mg PO BID 90 days 180 tabs 2RF apixaban (Eliquis) New 5 mg PO BID 60 tabs 5RF Patient Instructions: - Continue taking prescribed medications (Entresto, carvedilol, amiodarone, rosuvastatin, Brilinta) as directed. - Avoid physical exertion that can bring on chest pain, like walking uphill. - Monitor for any new chest pain, shortness of breath, or heart palpitations, and report these symptoms if they occur. - Watch for bleeding issues with the use of Eliquis - Attend EP appointment at [facility] when scheduled - Emergency care if needed for symptoms Patient was informed and verbally consented to the use of an ambient scribe for clinic note documentation during this visit. Visit time spent on chart review, interview, assessment, orders, documentation. Coding Level of Care Code Est Pt Level 4 (45201) Complex EM visit Add On G2211 Diagnoses Atrial flutter I48.92 Heart failure with reduced ejection fraction I50.20 Nonischemic cardiomyopathy I42.8 CAD (coronary artery disease) I25.10 S/P cardiac cath Z98.890 Stented coronary artery Z95.5 ICD (implantable cardioverter-defibrillator) in place Z95.810 SVT (supraventricular tachycardia) I47.1 Ventricular arrhythmia I49.9 Hypertension I10 Hospital discharge follow-up Z09 CPT Codes EKG - CPT: 83941-[id number], Complete ([id number]) Time Spent (min) 36
--- OUTSIDE RECORDS SUMMARY | 2025-03-28 09:35 | XMS_ITS | Patient Health Record ---
Author Organization [facility] Address [address] [place] [address] Care Team Providers Care Speech Communication Professor Name Role Phone Imelda Sepulveda Primary Care Provider Unavailab Fabio Amin Unavailable [phone] Reason For Referral No Information Medications Medication [...] No Encounters Encounter Location Date Provider Diagnosis [facility] [address] [place] [address] 08/14/2024 Fabio Silverio [facility] [place] [address] [place] [address] 11/15/2024 Fabio Silverio Plan Of Treatment No Information Insurance Providers Payer Name Payer Address Payer Phone Subscriber Number Group Number Insured Name Patient Relationship to Insured Coverage Start Date Coverage End Date [facility] SCO Claims [address] [place] [id number] [phone] [id number] [id number] Trenton Dasilva Self - patient is the insured Medical (General) History Medical History History ICD Code Heart disease High Blood Pressure Stroke Surgical History Surgery Date(Month/Year) cardiac pacemeker
== END 2025-03-28 10:01 | disposition home or self-care (01) ==
LOC: HO.HCS 08:57
PROVIDERS: PCP Internal Medicine; Visit Provider Nurse Practitioner Family
DX: I48.92 Unspecified atrial flutter (principal); I50.20 Unspecified systolic (congestive) heart failure; I42.8 Other cardiomyopathies; I25.10 Atherosclerotic heart disease of native coronary artery without angina pectoris; Z98.890 Other specified postprocedural states; Z95.5 Presence of coronary angioplasty implant and graft; Z95.810 Presence of automatic (implantable) cardiac defibrillator; I47.10 Supraventricular tachycardia, unspecified; I49.9 Cardiac arrhythmia, unspecified; I10 Essential (primary) hypertension; Z09 Encounter for follow-up examination after completed treatment for conditions other than malignant neoplasm
CPT/HCPCS: 99214; G2211

== ENCOUNTER → 2025-03-28 08:56 | Outpatient (BNVA) | payer OTHER, SELFPAY | PROVIDERS: PCP Internal Medicine; Visit Provider Nurse Practitioner Family | DX: Z09 Encounter for follow-up examination after completed treatment for conditions other than malignant neoplasm (principal); I48.92 Unspecified atrial flutter; I11.0 Hypertensive heart disease with heart failure; I50.20 Unspecified systolic (congestive) heart failure; I42.8 Other cardiomyopathies; I25.10 Atherosclerotic heart disease of native coronary artery without angina pectoris; I47.10 Supraventricular tachycardia, unspecified; I49.9 Cardiac arrhythmia, unspecified; Z98.890 Other specified postprocedural states; Z95.810 Presence of automatic (implantable) cardiac defibrillator | CPT/HCPCS: 93005; 99212 ==

== ENCOUNTER → 2025-04-07 04:29 | Outpatient (BNV) | payer OTHER, SELFPAY | PROVIDERS: Emergency Provider Emergency Medicine; PCP Internal Medicine; Visit Provider Specialist | DX: R07.9 Chest pain, unspecified (principal) | CPT/HCPCS: 71045 ==

== ENCOUNTER 2025-04-07 05:18 | Inpatient (IN) | payer OTHER, SELFPAY ==
[2025-04-07] VITALS (7 sets, daily range): BP systolic 92–132; BP diastolic 58–96; PULSE 53–110; RESP 16–28; TEMP 36.1–36.6; O2SAT 94–98; BMI 30.1
--- NOTE | 2025-04-07 | ECG_ITS ---
Test Reason : Repeat Blood Pressure : */* mmHG Vent. Rate : 68 BPM Atrial Rate : 68 BPM P-R Int : 288 ms QRS Dur : 196 ms QT Int : 534 ms P-R-T Axes : 62 147 -18 degrees QTcB Int : 567 ms Sinus rhythm with 1st degree A-V block Right bundle branch block T wave abnormality, consider inferior ischemia Abnormal ECG When compared with ECG of 07-Apr-2025 05:20, Sinus rhythm has replaced Atrial tachycardia Vent. rate has decreased by 34 bpm Referred By: Ivory Quintero Electronically Signed By: DANYELL ROMAN MD
--- NOTE | 2025-04-07 | ECG_ITS ---
Test Reason : chest pain Blood Pressure : */* mmHG Vent. Rate : 69 BPM Atrial Rate : 69 BPM P-R Int : 268 ms QRS Dur : 198 ms QT Int : 556 ms P-R-T Axes : 58 145 5 degrees QTcB Int : 595 ms Sinus rhythm with 1st degree A-V block with Fusion complexes Right axis deviation Non-specific intra-ventricular conduction block Abnormal ECG When compared with ECG of 07-Apr-2025 07:27, Fusion complexes are now Present Non-specific intra-ventricular conduction block has replaced Right bundle branch block Referred By: Tigist Gomez Electronically Signed By: Zuhair Hernandes
--- NOTE | 2025-04-07 | ECG_ITS ---
Test Reason : CHEST PAIN Blood Pressure : */* mmHG Vent. Rate : 102 BPM Atrial Rate : * BPM P-R Int : * ms QRS Dur : 150 ms QT Int : 388 ms P-R-T Axes : * 77 135 degrees QTcB Int : 505 ms Possible Atrial tachycardia with frequent Premature ventricular complexes Non-specific intra-ventricular conduction block Minimal voltage criteria for LVH, may be normal variant ( [place] product ) Abnormal ECG When compared with ECG of 27-Feb-2025 12:34, Atrial tachycardia has replaced Sinus rhythm Vent. rate has increased by 46 bpm Referred By: Generic ED Physician Electronically Signed By: DANYELL ROMAN MD
--- NOTE | ~2025-04-07 | XR_ITS ---
CLINICAL HISTORY: CP 1 view chest x-ray Comparison: 02/27/2025 Findings: Portions of the exam are obscured by overlying material. There is bilateral consolidation, possible pneumonia or pulmonary edema Heart size is normal. No acute fracture. IMPRESSION: 1. Bilateral consolidation, differential considerations noted This document has been electronically signed by: Sravan Julio MD on 04/07/2025 06:19:37
[2025-04-07 05:32] LABS: MANUAL DIFF FLAG NO
[2025-04-07 05:34] LABS: Basophils Absolute Auto 0.1 X10*3/uL (0.0-0.2); Basophils Percent Auto 0.7 % (0-2); Eosinophils Absolute Auto 0.1 X10*3/uL (0.0-0.4); Eosinophils Percent Auto 1.7 % (0-4); Hematocrit 45.6 % (42.0-52.0); Hemoglobin 15.1 g/dl (14.0-18.0); Imm Gran Abs Auto 0.01 X10*3/uL (0.00-0.03); Imm Gran Pct Auto 0.1 % (0.0-0.4); Lymphocytes Absolute Auto 1.9 X10*3/uL (1.2-4.9); Lymphocytes Percent Auto 27.1 % (20-40); Mean Corpuscular HGB Conc 33.1 g/dl (31.0-36.0); Mean Corpuscular Hemoglobin 31.4 pg (27.0-33.0); Mean Corpuscular Volume 94.8 fL (80.0-98.0); Mean Platelet Volume 11.4 fL (9.4-12.4); Monocytes Absolute Auto 0.5 X10*3/uL (0.1-1.2); Monocytes Percent Auto 7.4 % (2-11); Neutrophils Absolute Auto 4.4 x10*3/uL (2.0-8.3); Platelet Count 192 X10*3/uL (160-400); Red Blood Count 4.81 X10*6/uL (4.60-5.80); Red Cell Distribution Width 13.2 % (11.0-16.0); White Blood Count 6.9 X10*3/uL (4.8-10.8)
[2025-04-07 05:45] LABS: Prothrombin Time 11.6 SEC (10.9-12.4)
[2025-04-07 05:46] LABS: Alanine Aminotransferase 69 U/L (0-40); Albumin Level 4.2 g/dL (3.5-5.0); Alkaline Phosphatase 105 U/L (39-117); Anion Gap 15 (12-20); Aspartate Amino Transferase 65 U/L (5-37); Blood Urea Nitrogen 20 mg/dL (9-16); Calcium 9.1 mg/dL (8.4-10.2); Carbon Dioxide 21 mmol/L (22-29); Chloride 105 mmol/L (96-108); Estimated Glomerular Filt Rate > 60; Glucose Random 193 mg/dL (60-115); Magnesium 2.1 mg/dL (1.6-2.6); Potassium 3.8 mmol/L (3.3-5.1); Sodium 137 mmol/L (135-145)
[2025-04-07 05:54] LABS: Troponin-I High Sensitivity 14.9 ng/L (<3.5-35.0)
[2025-04-07 06:10] LABS: Influenza A PCR NEGATIVE (Negative); Influenza B PCR NEGATIVE (Negative); Resp Syncy Virus RNA Qual PCR NEGATIVE (Negative); SARS COV2 PCR INHOUSE NEGATIVE (Negative)
[2025-04-07 06:30] LABS: B Type Natriuretic Peptide 2470 pg/mL (<100)
--- OUTSIDE RECORDS SUMMARY | 2025-04-07 06:46 | XMS_ITS | Patient Health Record ---
Author Organization [facility] Address [address] [place] [address] Care Team Providers Care Crocheter Hand Name Role Phone Imelda Sepulveda Primary Care Provider Unavailab Fabio Amin Unavailable [phone] Reason For Referral No Information Medications Medication [...] No Encounters Encounter Location Date Provider Diagnosis [facility] [address] [place] [address] 08/14/2024 Fabio Silverio [facility] [address] [place] [address] 11/15/2024 Fabio Silverio Plan Of Treatment No Information Insurance Providers Payer Name Payer Address Payer Phone Subscriber Number Group Number Insured Name Patient Relationship to Insured Coverage Start Date Coverage End Date [facility] SCO Claims [address] [place] [id number] [phone] [id number] Trenton Dasilva Self - patient is the insured Medical (General) History Medical History History ICD Code Heart disease High Blood Pressure Stroke Surgical History Surgery Date(Month/Year) cardiac pacemeker
--- NOTE | 2025-04-07 07:03 | ED.CHESTPAIN ---
HPI - Chest Pain General Chief Complaint: Chest Pain Stated Complaint: Chest Pain Time Seen by Provider: 04/07/25 05:27 Source: patient and family Mode of arrival: ambulatory Limitations: no limitations History of Present Illness ED Provider: Dr. Ivory Quintero HPI narrative: Patient comes to the emergency room complaining of chest tightness and shortness of breath. Patient states the 330 in the morning patient woke up to go to the bathroom. Patient states that we started walking towards his bed, patient started feeling short of breath. Patient started having some chest tightness. Patient states that he tried lying back down but he was too short of breath and could not lie back. Patient called his family member who picked him up from his house and brought him to the emergency room. Related Data Home Medications ?Medication ?Instructions ?Recorded ?Confirmed ezetimibe 10 mg tablet 10 mg PO DAILY 08/18/20 03/28/25 rosuvastatin 40 mg tablet 40 mg PO BEDTIME 08/18/20 03/28/25 acetaminophen 650 mg 650 mg PO TID PRN pain 02/27/25 03/28/25 tablet,extended release empagliflozin 10 mg tablet 10 mg PO DAILY 02/27/25 03/28/25 (Jardiance) furosemide 80 mg tablet 80 mg PO DAILY 02/27/25 03/28/25 ivabradine 5 mg tablet (Corlanor) 5 mg PO BID 02/27/25 03/28/25 Previous Rx's ?Medication ?Instructions ?Recorded spironolactone 25 mg tablet 25 mg PO DAILY 90 days #90 tabs 04/20/23 sacubitril 24 mg-valsartan 26 mg 1 tab PO BID #180 tabs 08/20/24 tablet (Entresto) carvedilol 25 mg tablet 6.25 mg (1/4 x 25 mg) PO BID 90 10/05/24 days #270 tabs amiodarone 200 mg tablet 200 mg PO DAILY #90 tabs 03/08/25 apixaban 5 mg tablet (Eliquis) 5 mg PO BID #60 tabs 03/28/25 clopidogrel 75 mg tablet (Plavix) 75 mg PO DAILY #30 tabs 03/29/25 Allergies Allergy/AdvReac Type Severity Reaction Status Date / Time No Known Allergies Allergy Verified 04/07/25 05:39 Review of Systems Review of Systems: Constitutional : No Weight loss, No Fever, No Chills, No Night Sweats, No Fatigue, No Malaise ENT/Mouth : No Hearing loss, No Ear Pain, No Nasal Congestion, No Sinus Pain, No Hoarseness, No sore throat, No Rhinorrhea, No Swallowing Difficulty Eyes: No Eye Pain, No Swelling, No Redness, No Foreign Body, No Discharge, No Vision Changes Cardiovascular : No Chest Pain, No SOB, No Dyspnea on Exertion, No Orthopnea, No Edema, No Palpitations Respiratory : No Cough, No Sputum, No Wheezing, No Smoke Exposure, No Dyspnea Gastrointestinal : No Nausea, No Vomiting, No Diarrhea, No Constipation, No abdominal Pain, No Hematochezia, No Melena Genitourinary : no irregular bleeding, No Dysuria, No Urinary Frequency, No Hematuria, No Urinary Incontinence, No Urgency, No Flank Pain, No Urinary Flow Changes, No Hesitancy Musculoskeletal : No joint pain, No Myalgias, No Joint Swelling Skin : No Skin Lesions, No rash Neuro : No Weakness, No Numbness, No Paresthesias, No Loss of Consciousness, No Dizziness, No Headache Psych : No Anxiety/Panic, No Depression, No SI/HI/AH/VH, No Social Issues, Heme/Lymph: No Bruising, No Bleeding,No Lymphadenopathy Endocrine : No Polyuria, No Polydipsia, No Temperature Intolerance [facility] Past Medical History Medical History ICD (implantable cardioverter-defibrillator) in place Atrial flutter by electrocardiogram Cardiomyopathy Anomalous coronary artery origin Atherosclerotic cardiovascular disease Heart failure with reduced ejection fraction HLD (hyperlipidemia) Acute on chronic combined systolic and diastolic CHF (congestive heart failure) Nonischemic cardiomyopathy CAD (coronary artery disease) Hypertension Pacemaker Surgical History Stented coronary artery S/P cardiac cath Hx of cardiac catheterization Family History Family History Father No problems noted. Mother No problems noted. 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) Alcohol intake: current Alcohol intake frequency: a few times a month Alcohol type: beer Patient Tobacco Use Status: Never used Tobacco e-Cigarette/Vaping Use: Never Used Second Hand Smoke Exposure: No Substance Use Type: Marijuana Advance Directives: No Advance Directives Information Provided: Yes Do you have a plan to hurt others: No Plan service: No Current occupational status: disabled Physical Exam Vital Signs: Vital Signs: Last Vital Signs Temp 97.6 F 04/07/25 05:49 Pulse 110 H 04/07/25 05:49 Resp 28 H 04/07/25 05:49 BP 103/70 04/07/25 07:11 Pulse Ox 94 04/07/25 05:49 O2 Del Method Room Air 04/07/25 05:49 BMI result Body Mass Index 30.1 Const: Other: Appearance: Alert. Oriented X3. Ill-appearing Eyes: Pupils equal, round and reactive to light. ENT: Pharynx normal. Neck: Normal inspection. Neck supple. No lymph nodes noted. No crepitus CVS: Normal heart rate and rhythm. Pulses normal. Normal S1 and S2 Respiratory: No respiratory distress. Breath sounds normal. No Wheezing. No rales Abdomen: Soft and nontender. No rigidity. No distention. Skin: Skin warm a bit clammy. Normal skin color. Normal skin turgor. Extremities: No lower extremity edema. No Lacerations. No Rash Neuro: Oriented X 3. No motor deficit. No sensory deficit. Moving all extremities. No slurred speech. CN 2 through 12 grossly intact Psych: calm, cooperative, normal affect Course Course Course Narrative: Patient came in complaining of chest pressure, shortness of breath. Patient has multiple cardiac problems. Patient has been hospitalized multiple times for CHF exacerbation. Medications Administered Discontinued Medications Generic Name Dose Route Start Last Admin Trade Name Freq PRN Reason Stop Dose Admin Furosemide 40 mg 04/07/25 07:00 04/07/25 07:11 Furosemide 40 Mg/4 Ml Vial IVPUSH 04/07/25 07:01 40 mg ONCE ONE Administration Protocol Medical Decision Making Medical Decision Making [facility] Narrative: My interpretation of labs: No significant abnormality in patient's hematology, no significant abnormality and chemistry. Patient's BNP is elevated 2470 which is double patient's baseline. Chest x-ray shows bilateral consolidation, radiology reports possible pneumonia or pulmonary edema. Patient has no URI symptoms at all. This is CHF Differential Diagnosis Differential Diagnoses: The differential diagnosis associated with the presentation includes (CHF, flash pulmonary edema, ACS) Admission/Observation Consideration of admission/observation: Escalation of care including admission/observation considered Consult Healthcare Provider Management of the patient was discussed with: Hospitalist Lab Data MDM Lab Attestation statement: I reviewed the patient's lab results. 04/07/25 05:25 04/07/25 05:25 Labs: Lab Results 04/07/25 Range/Units 05:25 WBC 6.9 (4.8-10.8) X10*3/uL RBC 4.81 (4.60-5.80) X10*6/uL Hgb 15.1 (14.0-18.0) g/dl Hct 45.6 (42.0-52.0) % MCV 94.8 (80.0-98.0) fL MCH 31.4 (27.0-33.0) pg MCHC 33.1 (31.0-36.0) g/dl RDW 13.2 (11.0-16.0) % Plt Count 192 (160-400) X10*3/uL MPV 11.4 (9.4-12.4) fL Immature Gran % (Auto) 0.1 (0.0-0.4) % Neut % (Auto) 63.0 (45-73) % Lymph % (Auto) 27.1 (20-40) % [place] % (Auto) 7.4 (2-11) % Eos % (Auto) 1.7 (0-4) % Baso % (Auto) 0.7 (0-2) % Lymph # (Auto) 1.9 (1.2-4.9) X10*3/uL [place] # (Auto) 0.5 (0.1-1.2) X10*3/uL Eos # (Auto) 0.1 (0.0-0.4) X10*3/uL Baso # (Auto) 0.1 (0.0-0.2) X10*3/uL Abs Immat Gran (auto) 0.01 (0.00-0.03) X10*3/uL Absolute Neuts (auto) 4.4 (2.0-8.3) x10*3/uL Absolute Nucleated RBC 0.000 (0.0-0.012) X10*3/uL Nucleated RBC % (auto) 0.0 (0.0-0.2) /100WBC PT 11.6 (10.9-12.4) SEC INR 1.0 (0.9-1.1) Sodium 137 (135-145) mmol/L Potassium 3.8 (3.3-5.1) mmol/L Chloride 105 (96-108) mmol/L Carbon Dioxide 21 L (22-29) mmol/L Anion Gap 15 (12-20) BUN 20 H (9-16) mg/dL Creatinine 1.11 (0.5-1.4) mg/dL Estim Creat Clear Calc 64.0 Estimated GFR > 60 Random Glucose 193 H (60-115) mg/dL Calcium 9.1 (8.4-10.2) mg/dL Magnesium 2.1 (1.6-2.6) mg/dL Total Bilirubin 1.0 (0.0-1.0) mg/dL AST 65 H (5-37) U/L ALT 69 H (0-40) U/L Alkaline Phosphatase 105 (39-117) U/L Troponin I High Sens 14.9 (<3.5-35.0) ng/L B-Natriuretic Peptide 2470 H (<100) pg/mL Total Protein 7.0 (6.5-8.0) g/dL Albumin 4.2 (3.5-5.0) g/dL Influenza Type A (PCR) NEGATIVE (Negative) Influenza Type B (PCR) NEGATIVE (Negative) RSV RNA Qual (PCR) NEGATIVE (Negative) SARS-CoV-2 RNA (RT-PCR) NEGATIVE (Negative) Independent Interpretation I performed an independent interpretation of an: EKG and Plain X-Ray Radiology Impression Discussion of test interpretation with radiology: I have reviewed the radiologist's reading. Radiologist Impression: Portions of the exam are obscured by overlying material. There is bilateral consolidation, possible pneumonia or pulmonary edema Heart size is normal. No acute fracture. Critical Care Time Critical Care Time Critical Care Time: Yes Total Critical Care Time: 75 Attestation: I have personally provided critical care time. Time includes review of lab data, radiology results, discussion with consultants, and monitoring for potential decompensation. Intervention performed as documented. Discharge Plan Discharge Clinical Impression: CHF exacerbation Patient Disposition: Admitted As Inpatient Prescriptions: No Action spironolactone 25 mg tablet 25 mg PO DAILY 90 Days Qty: 90 3RF Entresto 24-26 mg tablet 1 tab PO BID Qty: 180 1RF amiodarone 200 mg tablet 200 mg PO DAILY Qty: 90 5RF acetaminophen 650 mg tablet extended release 650 mg PO TID PRN (Reason: pain) furosemide 80 mg tablet 80 mg PO DAILY ivabradine [Corlanor] 5 mg tablet 5 mg PO BID Jardiance 10 mg tablet 10 mg PO DAILY carvedilol 25 mg tablet 6.25 mg PO BID 90 Days Qty: 270 3RF Rx Instructions: must administer with a meal/food rosuvastatin 40 mg tablet 40 mg PO BEDTIME ezetimibe 10 mg tablet 10 mg PO DAILY Eliquis 5 mg tablet 5 mg PO BID Qty: 60 5RF Rx Instructions: New clopidogrel [Plavix] 75 mg tablet 75 mg PO DAILY Qty: 30 3RF Rx Instructions: ON FIRST DAY ONLY - Take 4 tablets, then take 1 tablet daily Print Language: Other
[2025-04-07] MEDS: Furosemide 40 MG/4 ML VIAL IVPUSH (07:11)
--- NOTE | 2025-04-07 07:46 | P.HPHOSP_ITS ---
History of Present Illness Date of Service: 04/07/25 Chief Complaint: chest pain, SOB A 70 years old male with PMH of hypertension, SVT, heart failure with reduced EF, nonischemic cardiomyopathy, ICD, ventricular arrhythmia and on amiodarone, CAD with RCA and LAD stent who presents to ED with chest discomfort and shortness of breath. Reports walking to the kitchen night time when he started having central chest pain, pressure like, lasted 5 minutes and resolved. He was recently admitted for similar concern and ruled out ACS and followed with cardiology follow up. No PND, palpitations, edema, cough, nausea, vomiting, diarrhea or urinary symptoms. 2024 cardiac catheterization patent proximal RCA stent, proximal LAD stenosis with PCI and YOVANA placed. In ED Trop negative. EKG showing sinus rhythm with 1st degree block. Admitted for further evaluation and monitoring Review of Systems 2 Review of Systems: No fever, chills or weakness No chest pain, palpitation mild shortness of breath or coughing No abdominal pain, nausea or vomiting No urinary symptoms No any rash or wounds [facility] Medical History ICD (implantable cardioverter-defibrillator) in place Atrial flutter by electrocardiogram Cardiomyopathy Anomalous coronary artery origin Atherosclerotic cardiovascular disease Heart failure with reduced ejection fraction HLD (hyperlipidemia) Acute on chronic combined systolic and diastolic CHF (congestive heart failure) Nonischemic cardiomyopathy CAD (coronary artery disease) Hypertension Pacemaker Family History Father No problems noted. Mother No problems noted. 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) Alcohol intake: current Alcohol intake frequency: a few times a month Alcohol type: beer Patient Tobacco Use Status: Never used Tobacco e-Cigarette/Vaping Use: Never Used Second Hand Smoke Exposure: No Substance Use Type: Marijuana Advance Directives: No Advance Directives Information Provided: Yes Do you have a plan to hurt others: No Plan service: No Current occupational status: disabled Meds Allergies Allergy/AdvReac Type Severity Reaction Status Date / Time No Known Allergies Allergy Verified 04/07/25 05:39 Home Medications ?Medication ?Instructions ?Recorded ?Confirmed ?Last Taken ?Type ezetimibe 10 mg tablet 10 mg PO DAILY 08/18/20 04/07/25 04/07/25 History rosuvastatin 40 mg tablet 40 mg PO BEDTIME 08/18/20 04/07/25 04/07/25 History empagliflozin 10 mg tablet 10 mg PO DAILY 02/27/25 04/07/25 04/07/25 History (Jardiance) furosemide 80 mg tablet 80 mg PO DAILY 02/27/25 04/07/25 04/07/25 History ivabradine 5 mg tablet (Corlanor) 5 mg PO BID 02/27/25 04/07/25 04/07/25 History carvedilol 6.25 mg tablet 6.25 mg PO BID 04/07/25 04/07/25 04/07/25 History Physical Exam 2 Vital Signs and Narrative: Vital Signs: Last Vital Signs Temp 97.6 F 04/07/25 05:49 Pulse 110 H 04/07/25 05:49 Resp 28 H 04/07/25 05:49 BP 103/70 04/07/25 07:11 Pulse Ox 94 04/07/25 05:49 O2 Del Method Room Air 04/07/25 05:49 BMI result Body Mass Index 30.1 Const: Other: Constitutional : interactive, not in distress Cardiovascular : no JVP, no lower extremity edema Respiratory : bilateral chest movement, not in resp distress Gastrointestinal: soft, lax, Non tender Skin : Warm, Dry Neurological : Alert & oriented , No focal deficit Results Labs 04/07/25 05:25 04/07/25 05:25 Labs: Laboratory Results - last 24 hr 04/07/25 05:25 MCV 94.8 MCH 31.4 MCHC 33.1 RDW 13.2 Plt Count 192 MPV 11.4 Immature Gran % (Auto) 0.1 Neut % (Auto) 63.0 Lymph % (Auto) 27.1 [place] % (Auto) 7.4 Eos % (Auto) 1.7 Baso % (Auto) 0.7 Lymph # (Auto) 1.9 [place] # (Auto) 0.5 Eos # (Auto) 0.1 Baso # (Auto) 0.1 Abs Immat Gran (auto) 0.01 Absolute Neuts (auto) 4.4 Absolute Nucleated RBC 0.000 Nucleated RBC % (auto) 0.0 PT 11.6 INR 1.0 Anion Gap 15 Estim Creat Clear Calc 64.0 Estimated GFR > 60 Random Glucose 193 H Calcium 9.1 Magnesium 2.1 Total Bilirubin 1.0 AST 65 H ALT 69 H Alkaline Phosphatase 105 Troponin I High Sens 14.9 B-Natriuretic Peptide 2470 H Total Protein 7.0 Albumin 4.2 Influenza Type A (PCR) NEGATIVE Influenza Type B (PCR) NEGATIVE RSV RNA Qual (PCR) NEGATIVE SARS-CoV-2 RNA (RT-PCR) NEGATIVE Assessment and Plan (1) CHF exacerbation: Status: Acute (2) Acute decompensated heart failure: Status: Acute (3) Chest pain: Status: Resolved Plan A 70 years old male with PMH of hypertension, SVT, heart failure with reduced EF, nonischemic cardiomyopathy, ICD, ventricular arrhythmia and on amiodarone, CAD with RCA and LAD stent who presents to ED with chest discomfort and shortness of breath. chest pain EKG not showing any ST\T wave changes to suggest ACS Trop trended negative recent YOVANA on 10/2024 Keep on Tele on Plavix and Eliquis Cardiology consult NTG and morphine prn repeat EKG and Trop for pain Acute on chronic combined systolic and diastolic CHF execerebation Elevated BNP Continue iv lasix follow BNP coreg 6.25 ,hold entersto for now HLD continue statin. DVT PPx Eliquis The patient will need 2 overnight hospital stay for treatment of IV lasix for heart failure exacerbation pending cardiology consult Quality Stroke Does the patient have a stroke diagnosis?: No VTE Prior VTE?: No VTE Risk Level:: Medical - moderate - high VTE Device Contraindication: Treatment Not Indicated VTE Drug Contraindication: N/A - Med Ordered
[2025-04-07] MEDS: 0.9 % Sodium Chloride Flush 3 ML SYRINGE IVFLUSH ×3 (08:54→23:49)
--- NOTE | 2025-04-07 09:15 | PC.NURSE ---
Med Rec completed with written list of current medications provided by Pts Visiting Nurse. She confirms Pt took at his AM medications prior to arrival to [facility] ED. Copy of list placed in Pt chart.
--- NOTE | 2025-04-07 09:41 | PC.NURSE ---
Hospitalist Erika at bedside for eval. Verbal report give to Erika that Med Rec has been completed and are in need of ordering. Yvonne states he will place med orders.
--- NOTE | 2025-04-07 10:18 | PHA.MEDREC ---
Addendum entered by Raul Merritt [facility] 04/07/25 10:49: Dr. James was made aware of the omission of amiodarone from patient's home med list. Addendum entered by Raul Merritt [facility] 04/07/25 10:44: I went to see patient and visiting nurse at bedside and asked if patient takes aspirin 81 mg and amiodarone 200 mg. Visiting nurse was adamant that patient only takes what is on the hand written med list and since aspirin and amiodarone are not on that list then patient does not take them. MED REC REVIEWED BY [facility]. Original Note: Pharmacy Consult ? Medication Reconciliation Pharmacy has completed the medication reconciliation. Reviewed med rec done by nursing. Per med rec [facility], visiting nurse says whats on the list from home is what the patient is taking. List matches pharmacy claims. Amiodarone is not on the list.
[2025-04-07] MEDS: Clopidogrel Bisulfate 75 MG TABLET PO (13:22)
[2025-04-07] MEDS: Apixaban 5 MG TABLET PO ×2 (13:22→21:00)
--- NOTE | 2025-04-07 16:04 | MHC.CM.PN ---
IMM 04/07/25, EMR REVIEWED PT W/CHF, CM MET W/PT VIA SEED LABORATORY TECHNICIAN, PT REPORTS HE LIVES ALONE, USES A CANE PRN AND SHOWER BENCH, PT HAS LOO YRS WORKFORCE PLANNING ANALYST 21HRS/WK AND DECLINES NEED FOR ANY ADDITIONAL SERVICES ON ADMIT. PT'S GOAL IS TO DC HOME W/WORKFORCE PLANNING ANALYST. PCP/HCP ON FILE VERIFIED.
--- NOTE | 2025-04-07 17:57 | PC.NURSE ---
Mutuel Department Manager requested for admission assessment. Mutuel Department Manager prasanth text she had several patients before him. She arrived 1 hour after admission to help with questionnaires. Mutuel Department ManagerNasreen.
[2025-04-07] MEDS: Atorvastatin Calcium 80 MG TABLET PO (21:00)
[2025-04-07] MEDS: carvediloL 6.25 MG TABLET PO (21:00)
[2025-04-07] MEDS: Acetaminophen 325 MG TABLET 650 MG PO (23:43)
[2025-04-07] MEDS: Nitroglycerin 0.4 MG TAB.SUBL SUBLINGUAL (23:59)
[2025-04-08] VITALS (7 sets, daily range): BP systolic 97–111; BP diastolic 62–70; PULSE 61–73; RESP 16–20; TEMP 36.2–36.4; O2SAT 96–99
[2025-04-08 00:43] LABS: Troponin-I High Sensitivity 16.4 ng/L (<3.5-35.0)
[2025-04-08 06:46] LABS: MANUAL DIFF FLAG NO
[2025-04-08 06:58] LABS: Basophils Absolute Auto 0.1 X10*3/uL (0.0-0.2); Basophils Percent Auto 0.8 % (0-2); Eosinophils Absolute Auto 0.1 X10*3/uL (0.0-0.4); Eosinophils Percent Auto 1.7 % (0-4); Hematocrit 44.1 % (42.0-52.0); Hemoglobin 14.9 g/dl (14.0-18.0); Imm Gran Abs Auto 0.02 X10*3/uL (0.00-0.03); Imm Gran Pct Auto 0.3 % (0.0-0.4); Lymphocytes Absolute Auto 1.3 X10*3/uL (1.2-4.9); Lymphocytes Percent Auto 20.6 % (20-40); Mean Corpuscular HGB Conc 33.8 g/dl (31.0-36.0); Mean Corpuscular Hemoglobin 31.2 pg (27.0-33.0); Mean Corpuscular Volume 92.3 fL (80.0-98.0); Mean Platelet Volume 11.7 fL (9.4-12.4); Monocytes Absolute Auto 0.6 X10*3/uL (0.1-1.2); Monocytes Percent Auto 8.6 % (2-11); Neutrophils Absolute Auto 4.3 x10*3/uL (2.0-8.3); Platelet Count 189 X10*3/uL (160-400); Red Blood Count 4.78 X10*6/uL (4.60-5.80); White Blood Count 6.4 X10*3/uL (4.8-10.8)
[2025-04-08 07:06] LABS: B Type Natriuretic Peptide 1302 pg/mL (<100)
[2025-04-08 07:13] LABS: Alanine Aminotransferase 68 U/L (0-40); Alkaline Phosphatase 87 U/L (39-117); Anion Gap 12 (12-20); Aspartate Amino Transferase 40 U/L (5-37); Bilirubin Total 1.3 mg/dL (0.0-1.0); Blood Urea Nitrogen 19 mg/dL (9-16); Carbon Dioxide 26 mmol/L (22-29); Chloride 104 mmol/L (96-108); Creatinine Clr Calc Pharmacy 93.5; Estimated Glomerular Filt Rate > 60; Glucose Random 103 mg/dL (60-115); Sodium 138 mmol/L (135-145); Total Protein 6.7 g/dL (6.5-8.0)
[2025-04-08] MEDS: Ezetimibe 10 MG TABLET PO (09:04)
[2025-04-08] MEDS: carvediloL 6.25 MG TABLET PO (09:04)
[2025-04-08] MEDS: Apixaban 5 MG TABLET PO ×2 (09:04→21:26)
[2025-04-08] MEDS: Spironolactone 25 MG TABLET PO (09:04)
[2025-04-08] MEDS: Empagliflozin 10 MG TABLET PO (09:04)
[2025-04-08] MEDS: Clopidogrel Bisulfate 75 MG TABLET PO (09:04)
[2025-04-08] MEDS: 0.9 % Sodium Chloride Flush 3 ML SYRINGE IVFLUSH ×3 (09:08→21:27)
[2025-04-08] MEDS: Furosemide 40 MG/4 ML VIAL IVPUSH (09:11)
--- NOTE | 2025-04-08 13:01 | HO.PM.IMPN ---
Subjective Subjective Date of Service: 04/08/25 Interval History: Seen and evaluated this morning feels better had another chest pain event of 5 minutes overnight no other events BNP trending down Review of Systems Review of Systems: Yes all other systems are reviewed and are negative Physical Exam Vital Signs: Vital Signs: Last Vital Signs Temp 97.5 F 04/08/25 12:00 Pulse 68 04/08/25 12:00 Resp 20 04/08/25 12:00 BP 97/70 04/08/25 12:00 Pulse Ox 98 04/08/25 12:00 O2 Del Method Room Air 04/08/25 12:00 BMI result Body Mass Index 30.1 Const: Other: Constitutional : interactive, not in distress Cardiovascular : no JVP, no lower extremity edema Respiratory : bilateral chest movement, not in resp distress Gastrointestinal: soft, lax, Non tender Skin : Warm, Dry Neurological : Alert & oriented , No focal deficit Objective Data Active Medications Acetaminophen (Acetaminophen 325 Mg Tablet) 650 mg PO Q6H PRN PRN Reason: Pain, Mild 1-3,fever,headache Last Admin: 04/07/25 23:43 Dose: 650 mg Documented By: SARWAT Apixaban (Apixaban 5 Mg Tablet) 5 mg PO BID [facility] Last Admin: 04/08/25 09:04 Dose: 5 mg Documented By: BREEZY Atorvastatin Calcium (Atorvastatin Calcium 80 Mg Tablet) 80 mg PO BEDTIME [facility] Last Admin: 04/07/25 21:00 Dose: 80 mg Documented By: SARWAT Calcium Carbonate (Calcium Carbonate 750 Mg Tab.Chew) 750 mg PO Q4H PRN PRN Reason: Heartburn Carvedilol (Carvedilol 6.25 Mg Tablet) 6.25 mg PO BID [facility]; Protocol Last Admin: 04/08/25 09:04 Dose: 6.25 mg Documented By: BREEZY Clopidogrel Bisulfate (Clopidogrel Bisulfate 75 Mg Tablet) 75 mg PO DAILY [facility] Last Admin: 04/08/25 09:04 Dose: 75 mg Documented By: BREEZY Ezetimibe (Ezetimibe 10 Mg Tablet) 10 mg PO DAILY [facility] Last Admin: 04/08/25 09:04 Dose: 10 mg Documented By: BREEZY Empagliflozin (Empagliflozin 10 Mg Tablet) 10 mg PO DAILY [facility] Last Admin: 04/08/25 09:04 Dose: 10 mg Documented By: BREEZY Furosemide (Furosemide 40 Mg/4 Ml Vial) 40 mg IVPUSH DAILY [facility]; Protocol Last Admin: 04/08/25 09:11 Dose: 40 mg Documented By: BREEZY Magnesium Hydroxide (Milk Of Magnesia 30 Ml Oral.Susp) 30 ml PO DAILY PRN PRN Reason: Constipation Melatonin (Melatonin 3 Mg Tablet) 6 mg PO BEDTIME PRN PRN Reason: Insomnia Nitroglycerin (Nitroglycerin 0.4 Mg Tab.Subl) 0.4 mg SUBLINGUAL Q5MX3 PRN PRN Reason: Chest Pain Last Admin: 04/07/25 23:59 Dose: 0.4 mg Documented By: SARWAT Non-Formulary Medication (Ivabradine [Corlanor]) 5 mg PO BID [facility] Ondansetron HCl (Ondansetron Hcl 4 Mg/2 Ml Vial) 4 mg IVPUSH Q8H PRN PRN Reason: Nausea and Vomiting Sodium Chloride (0.9 % Sodium Chloride Flush 3 Ml Syringe) 3 ml IVFLUSH QSHIFT [facility] Last Admin: 04/08/25 09:08 Dose: 3 ml Documented By: BEREZY Spironolactone (Spironolactone 25 Mg Tablet) 25 mg PO DAILY [facility]; Protocol Last Admin: 04/08/25 09:04 Dose: 25 mg Documented By: BREEZY Labs 04/08/25 06:01 04/08/25 06:01 Labs: Laboratory Results - last 24 hr 04/08/25 04/08/25 00:20 06:01 MCV 92.3 MCH 31.2 MCHC 33.8 RDW 13.0 Plt Count 189 MPV 11.7 Immature Gran % (Auto) 0.3 Neut % (Auto) 68.0 Lymph % (Auto) 20.6 [place] % (Auto) 8.6 Eos % (Auto) 1.7 Baso % (Auto) 0.8 Lymph # (Auto) 1.3 [place] # (Auto) 0.6 Eos # (Auto) 0.1 Baso # (Auto) 0.1 Abs Immat Gran (auto) 0.02 Absolute Neuts (auto) 4.3 Absolute Nucleated RBC 0.000 Nucleated RBC % (auto) 0.0 Anion Gap 12 Estim Creat Clear Calc 93.5 Estimated GFR > 60 Random Glucose 103 Calcium 9.0 Total Bilirubin 1.3 H AST 40 H ALT 68 H Alkaline Phosphatase 87 Troponin I High Sens 16.4 B-Natriuretic Peptide 1302 H Total Protein 6.7 Albumin 4.0 Assessment and Plan (1) CHF exacerbation: Status: Acute (2) Acute decompensated heart failure: Status: Acute (3) Chest pain: Status: Inactive Plan A 70 years old male with PMH of hypertension, SVT, heart failure with reduced EF, nonischemic cardiomyopathy, ICD, ventricular arrhythmia and on amiodarone, CAD with RCA and LAD stent who presents to ED with chest discomfort and shortness of breath. chest pain EKG not showing any ST\T wave changes to suggest ACS Trop trended negative recent YOVANA on 10/2024 Keep on Tele on Plavix and Eliquis Cardiology consult pending NTG and morphine prn repeat EKG and Trop for pain Acute on chronic combined systolic and diastolic CHF execerebation Elevated BNP trending down 2470 > 1302 Continue iv lasix follow BNP coreg 6.25 ,hold entersto for now HLD continue statin. DVT PPx Eliquis The patient will need overnight hospital stay for treatment of IV lasix for heart failure exacerbation pending cardiology consult Quality Stroke Does the patient have a stroke diagnosis?: No VTE Prior VTE?: No VTE Risk Level:: Medical - moderate - high VTE Device Contraindication: Treatment Not Indicated VTE Drug Contraindication: N/A - Med Ordered
--- NOTE | 2025-04-08 14:15 | P.CONCA_ITS ---
History of Present Illness History of Present Illness Date of Service: 04/08/25 Requesting physician: Justin James Chief complaint: CHF Narrative: [age] year gentleman with known history of cardiomyopathy and congestive heart failure. He had last echocardiogram performed in February 2024 when EF of 10- 15% and he had inferoseptal, basal anteroseptal and mid anteroseptal akinesis. LV cavity was severely dilated. He has a ICD in place. He has been on carvedilol, furosemide 80 mg daily, ivabradine 5 mg twice a day, Jardiance, Entresto and spironolactone. He has been noncompliant with salt intake and eats salt and drinks a lot of water. He is here because he was short of breath and had headache and chest pain. He is describing a sensation that started in his head and then radiated all the way to upper abdomen and fairly atypical sounding symptoms for angina. He said he was short of breath and has been getting episodes of orthopnea. He walks short distances and gets out of breath. His caregivers in the room and is concerned that his blood pressure at home has been low and he has been dizzy. She is saying his systolic blood pressures are in 80s. Labs reviewed. High sensitivity troponin levels are 14.9 and 16.4. His proBNP was 2470 and is 1302 today. EKGs showing sinus rhythm with first-degree AV block with AK interval of 268 milliseconds, right axis deviation, nonspecific intraventricular conduction delay, QRS duration 198 milliseconds. [facility] Past Medical History Medical History ICD (implantable cardioverter-defibrillator) in place Atrial flutter by electrocardiogram Cardiomyopathy Anomalous coronary artery origin Atherosclerotic cardiovascular disease Heart failure with reduced ejection fraction HLD (hyperlipidemia) Acute on chronic combined systolic and diastolic CHF (congestive heart failure) Nonischemic cardiomyopathy CAD (coronary artery disease) Hypertension Pacemaker Family History Family History Father No problems noted. Mother No problems noted. Surgical History Surgical History Stented coronary artery S/P cardiac cath Hx of cardiac catheterization Social History Social History Household Members: None Household Members Other:: Dog Housing: Apartment Do you presently have visiting nurse or other home services: Yes (caregiver Marta.) Alcohol intake: current Alcohol intake frequency: a few times a month Alcohol type: beer Patient Tobacco Use Status: Never used Tobacco e-Cigarette/Vaping Use: Never Used Second Hand Smoke Exposure: No Substance Use Type: Marijuana service: No Current occupational status: disabled Meds Allergies Allergy/AdvReac Type Severity Reaction Status Date / Time No Known Allergies Allergy Verified 04/07/25 05:39 Active Medications: Current Medications Acetaminophen (Acetaminophen 325 Mg Tablet) 650 mg PO Q6H PRN PRN Reason: Pain, Mild 1-3,fever,headache Last Admin: 04/07/25 23:43 Dose: 650 mg Apixaban (Apixaban 5 Mg Tablet) 5 mg PO BID [facility] Last Admin: 04/08/25 09:04 Dose: 5 mg Atorvastatin Calcium (Atorvastatin Calcium 80 Mg Tablet) 80 mg PO BEDTIME NATALIIA Last Admin: 04/07/25 21:00 Dose: 80 mg Calcium Carbonate (Calcium Carbonate 750 Mg Tab.Chew) 750 mg PO Q4H PRN PRN Reason: Heartburn Carvedilol (Carvedilol 3.125 Mg Tablet) 3.125 mg PO BID NATALIIA; Protocol Clopidogrel Bisulfate (Clopidogrel Bisulfate 75 Mg Tablet) 75 mg PO DAILY [facility] Last Admin: 04/08/25 09:04 Dose: 75 mg Ezetimibe (Ezetimibe 10 Mg Tablet) 10 mg PO DAILY NATALIIA Last Admin: 04/08/25 09:04 Dose: 10 mg Empagliflozin (Empagliflozin 10 Mg Tablet) 10 mg PO DAILY NATALIIA Last Admin: 04/08/25 09:04 Dose: 10 mg Furosemide (Furosemide 40 Mg/4 Ml Vial) 40 mg IVPUSH DAILY NATALIIA; Protocol Last Admin: 04/08/25 09:11 Dose: 40 mg Magnesium Hydroxide (Milk Of Magnesia 30 Ml Oral.Susp) 30 ml PO DAILY PRN PRN Reason: Constipation Melatonin (Melatonin 3 Mg Tablet) 6 mg PO BEDTIME PRN PRN Reason: Insomnia Nitroglycerin (Nitroglycerin 0.4 Mg Tab.Subl) 0.4 mg SUBLINGUAL Q5MX3 PRN PRN Reason: Chest Pain Last Admin: 04/07/25 23:59 Dose: 0.4 mg Non-Formulary Medication (Ivabradine [Corlanor]) 5 mg PO BID [facility] Ondansetron HCl (Ondansetron Hcl 4 Mg/2 Ml Vial) 4 mg IVPUSH Q8H PRN PRN Reason: Nausea and Vomiting Sodium Chloride (0.9 % Sodium Chloride Flush 3 Ml Syringe) 3 ml IVFLUSH QSHIFT [facility] Last Admin: 04/08/25 09:08 Dose: 3 ml Spironolactone (Spironolactone 25 Mg Tablet) 25 mg PO DAILY [facility]; Protocol Last Admin: 04/08/25 09:04 Dose: 25 mg Home Medications ?Medication ?Instructions ?Recorded ?Confirmed ?Last Taken ?Type ezetimibe 10 mg tablet 10 mg PO DAILY 08/18/20 04/07/25 04/07/25 History rosuvastatin 40 mg tablet 40 mg PO BEDTIME 08/18/20 04/07/25 04/07/25 History empagliflozin 10 mg tablet 10 mg PO DAILY 02/27/25 04/07/25 04/07/25 History (Jardiance) furosemide 80 mg tablet 80 mg PO DAILY 02/27/25 04/07/25 04/07/25 History ivabradine 5 mg tablet (Corlanor) 5 mg PO BID 02/27/25 04/07/25 04/07/25 History carvedilol 6.25 mg tablet 6.25 mg PO BID 04/07/25 04/07/25 04/07/25 History Physical Exam 2 Vital Signs: Vital Signs: Last Vital Signs Temp 97.5 F 04/08/25 12:00 Pulse 68 04/08/25 12:00 Resp 20 04/08/25 12:00 BP 97/70 04/08/25 12:00 Pulse Ox 98 04/08/25 12:00 O2 Del Method Room Air 04/08/25 12:00 BMI result Body Mass Index 30.1 GENERAL APPEARANCE: in no acute distress, pleasant. NECK: no carotid bruit, + jugular venous distention. SKIN: no suspicious lesions, warm and dry. HEART: no murmurs, regular rate and rhythm. LUNGS: clear to auscultation bilaterally. ABDOMEN: soft, nontender. EXTREMITIES: Mild edema. PERIPHERAL PULSES: equal. NEUROLOGIC: No gross deficits, AAO X 3 Objective Labs and Meds 04/08/25 06:01 04/08/25 06:01 Lab results: Laboratory Results - last 24 hr 04/08/25 04/08/25 00:20 06:01 WBC 6.4 RBC 4.78 Hgb 14.9 Hct 44.1 MCV 92.3 MCH 31.2 MCHC 33.8 RDW 13.0 Plt Count 189 MPV 11.7 Immature Gran % (Auto) 0.3 Neut % (Auto) 68.0 Lymph % (Auto) 20.6 Dare % (Auto) 8.6 Eos % (Auto) 1.7 Baso % (Auto) 0.8 Lymph # (Auto) 1.3 Dare # (Auto) 0.6 Eos # (Auto) 0.1 Baso # (Auto) 0.1 Abs Immat Gran (auto) 0.02 Absolute Neuts (auto) 4.3 Absolute Nucleated RBC 0.000 Nucleated RBC % (auto) 0.0 Sodium 138 Potassium 4.0 Chloride 104 Carbon Dioxide 26 Anion Gap 12 BUN 19 H Creatinine 0.76 Estim Creat Clear Calc 93.5 Estimated GFR > 60 Random Glucose 103 Calcium 9.0 Total Bilirubin 1.3 H AST 40 H ALT 68 H Alkaline Phosphatase 87 Troponin I High Sens 16.4 B-Natriuretic Peptide 1302 H Total Protein 6.7 Albumin 4.0 Assessment and Plan (1) CHF exacerbation: Status: Acute Plan [age] gentleman with background history of severe cardiomyopathy with EF 10-15%, atrial flutter, previous primary prevention ICD placement and coronary disease with previous PCI presenting for shortness of breath, headache and chest discomfort. Biomarkers are negative in does not have any ischemic EKG changes. He does have signs of congestive heart failure. Continues to have peripheral edema as well as JVD. I think we continue IV diuretics. His blood pressure at home has been low and he has been dizzy. He is on carvedilol and ivabradine to control his heart rate. I think we can decrease the carvedilol to 3.125 mg twice a day. He can continue rest of his medications as before. Once he becomes euvolemic we should check orthostatic vital signs on him to make sure that he is not having orthostasis. If he in fact has orthostasis at this stage then we may have to decrease his medication doses further. Last echocardiogram was more than a year ago. He should have repeat echocardiography. We will follow along with you. Thank you for allowing me to participate in the care of your patient. Please feel free to contact me if you have any questions. Procedures Date of Service Date of Service: 04/08/25
[2025-04-08] MEDS: Atorvastatin Calcium 80 MG TABLET PO (21:26)
[2025-04-08] MEDS: carvediloL 3.125 MG TABLET PO (21:26)
[2025-04-09 04:00] VITALS: BP 112/68; PULSE 72; RESP 18; TEMP 36.4; O2SAT 98
--- NOTE | 2025-04-09 07:00 | CA_ITS ---
Transthoracic Echocardiogram Patient (Last, First, Middle): Trenton Wallace, Gender: Male Date of : 1955 Age: 70 Procedure Date: 04/09/2025 Procedure Type: Transthoracic Echocardiogram Location: [facility] Height: 167.64 cm Weight: 84.37 kg BSA: 1.94 m2 Heart Rate: 83 bpm BP: 112 / 68 mmHg Pantograph I Engraver: SB Referring MD: Justin James MD Symptoms: Heart failure, chest pain Study Quality: Adequate Conclusions: - Severely increased left ventricular cavity size. There is normal left ventricular wall thickness. The left ventricular systolic function is severely decreased. The visually estimated ejection fraction is between 10-15%. - Mildly increased right ventricular cavity size. There is mildly decreased right ventricular systolic function. - There is moderate mitral valve regurgitation. - Mild to moderate pulmonary hypertension is present. Findings Procedure Information Contrast agent, definity, is being given per protocol without apparent complications. Left Ventricle Severely increased left ventricular cavity size. There is normal left ventricular wall thickness. The left ventricular systolic function is severely decreased. The visually estimated ejection fraction is between 10 15%. There is severe global hypokinesis. Abnormal diastolic function is noted. Spectral Doppler is indicative of an impaired relaxation filling pattern. E/E prime ratio is between 8 and 15 consistent with indeterminate filling pressures. Right Ventricle Mildly increased right ventricular cavity size. There is mildly decreased right ventricular systolic function. There is an ICD wire seen in the right ventricle. Atria The left atrium is severely dilated. The right atrium is normal in size. Aortic Valve Normal aortic valve structure and function. There is no aortic valve stenosis. There is no aortic valve regurgitation. Mitral Valve The mitral valve appears normal. There is moderate mitral valve regurgitation. There is no mitral valve stenosis. Pulmonic Valve The pulmonic valve is normal. There is trace pulmonic valve regurgitation. Tricuspid Valve Normal tricuspid valve structure. There is trace tricuspid valve regurgitation. The right ventricular systolic pressure is 47 mmHg. Normal right atrial pressure. Mild to moderate pulmonary hypertension is present. Great Vessels All visible segments of the aorta are normal in size. The visualized portions of the pulmonary artery and branches are normal. Venous The inferior vena cava is normal in size and collapses greater than 50% with inspiration. Pericardium/Pleural There is no evidence of pericardial effusion. Prior Study Comparison No significant change compared to prior study dated: 03/16/2024. Measurements 2D Linear Measurements IVSd: 0.66 0.6-0.9/0.6-1.0 cm LVIDd: 7.92 3.9-5.3/4.2-5.9 cm LVIDd Index: 4.08 2.4-3.2/2.2-3.1 cm/m2 LVIDs: 7.16 2.0-3.6 cm LVPWd: 0.89 0.7-1.1 cm Ao Root: 1.00 2.1-3.5 cm LA Diam: 5.30 2.7-3.8/3.0-4.0 cm LAIDs Index: 2.73 1.5-2.3 cm/m2 LV Mass: 367.42 67-162/88-224 g LV Mass Index: 189.39 43-95/49-115 g/m2 LVOT Diam: 2.10 3.0+(-)1.3 cm 2D Systolic Function EF 4C: 19.50 >55% EF 2C: 14.20 >55% EF BiP: 18.20 >55% Mitral Valve MV Pk E: 0.82 E'Lateral: 9.68 E'Medial: 3.15 E/E' Med: 26.20 E/E' Lat: 8.50 MR Vol - PW Dopp: 18.20 MR VTI: 1.30 MR ERO: 14.00 MR Alias Aris: 0.39 MR RAD: 0.50 Aortic Valve AoV Pk Aris: 0.96 AoV Pk Grad: 4.00 IVAN: 2.27 LVOT LVOT Pk Aris: 0.61 LVOT Mn Aris: 0.41 LVOT VTI: 0.09 LVOT Pk Grad: 2.00 LVOT Mn Grad: 1.00 LVOT Diam: 2.10 LVOT Area: 3.46 Diastolic Function MV Pk E: 0.82 E'Medial: 3.15 E/E' Med: 26.20 E' Laterial: 9.68 E/E' Lat: 8.50 Right Ventricle TAPSE (mm): 11.30 TVS' Aris: 6.37 Tricuspid Valve TR Pk Aris: 3.30 TR Pk Grad: 44.00 RA Press: 3.00 RVSP: 47.00 Great Vessels Aorta Ao Root-2D: 1.00 2.0-3.7 cm Sinus of Valsalva: 3.20 2.0-3.5 cm Ao Asc: 3.10 2.1-3.4 cm Pulmonary Valve PV Pk Aris: 0.65 Peak PV Grad: 2.00 Updated in Other Vendor System with Status of Final Zuhair Hernandes MD electronically signed on 04/09/2025 4:24:22 PM with status of Final
[2025-04-09 08:00] VITALS: BP 110/69; PULSE 73; RESP 18; TEMP 36.1; O2SAT 97
[2025-04-09] MEDS: Ezetimibe 10 MG TABLET PO (09:12)
[2025-04-09] MEDS: Empagliflozin 10 MG TABLET PO (09:12)
[2025-04-09] MEDS: Spironolactone 25 MG TABLET PO (09:12)
[2025-04-09] MEDS: Clopidogrel Bisulfate 75 MG TABLET PO (09:13)
[2025-04-09] MEDS: carvediloL 3.125 MG TABLET PO (09:13)
[2025-04-09] MEDS: Furosemide 40 MG/4 ML VIAL IVPUSH (09:13)
[2025-04-09] MEDS: Apixaban 5 MG TABLET PO (09:13)
[2025-04-09] MEDS: 0.9 % Sodium Chloride Flush 3 ML SYRINGE IVFLUSH (09:13)
--- NOTE | 2025-04-09 11:36 | PM.PNCARD ---
Subjective Subjective Date of Service: 04/09/25 Interval history: Seen examined at bedside. He is feeling better and has been walking the hallways without any symptoms. Physical Exam Vital Signs: Last Vital Signs Temp 97.0 F 04/09/25 08:00 Pulse 73 04/09/25 08:00 Resp 18 04/09/25 08:00 BP 110/69 04/09/25 08:00 Pulse Ox 97 04/09/25 08:00 O2 Del Method Room Air 04/09/25 08:00 BMI result Body Mass Index 30.1 GENERAL APPEARANCE: in no acute distress, pleasant. NECK: no carotid bruit, no jugular venous distention. SKIN: no suspicious lesions, warm and dry. HEART: no murmurs, regular rate and rhythm. LUNGS: clear to auscultation bilaterally. ABDOMEN: soft, nontender. EXTREMITIES: No edema. PERIPHERAL PULSES: equal. NEUROLOGIC: No gross deficits, AAO X 3 Objective Labs and Meds 04/08/25 06:01 04/08/25 06:01 Progress Note: A&P Assessment and plan (1) CHF exacerbation: Status: Acute Plan Pleasant 70 year gentleman with history of nonischemic cardiomyopathy status post ICD and atrial flutter on anticoagulation who presented with congestive heart failure. He also has background of coronary disease and previous PCI. He has been diuresed and has been feeling better. At home he was getting low blood pressures in 80s and had dizziness. His carvedilol dose has been decreased to 3.125 mg twice a day. Entresto has been held for now. He is doing well with the current regimen. We will see him in the office in few weeks. Thank you for allowing me to participate in the care of your patient. Please feel free to contact me if you have any questions. Time Spent With Patient Time: Total time managing care of this patient today ____ minutes. Progress Note: Quality Stroke Does the patient have a stroke diagnosis?: No Procedures Date of Service Date of Service: 04/09/25
--- NOTE | 2025-04-09 11:57 | PM.DS ---
DS: Providers Provider Date of Service: 04/09/25 Date of admission: 04/07/25 07:35 Date of discharge: 04/09/25 Primary care physician: Imelda Sepulveda MD Consults: 04/07/25 12:24 Consult to Cardiology Routine Consulting Provider: [facility] Reason for consultation: recurrent admissions for chest pain and pulm edema DS: Diagnosis Discharge Diagnosis (1) CHF exacerbation: Status: Acute DS: Summary Hospital Course Hospital Course: Admission note HPI A 70 years old male with PMH of hypertension, SVT, heart failure with reduced EF, nonischemic cardiomyopathy, ICD, ventricular arrhythmia and on amiodarone, CAD with RCA and LAD stent who presents to ED with chest discomfort and shortness of breath. Reports walking to the kitchen night time when he started having central chest pain, pressure like, lasted 5 minutes and resolved. He was recently admitted for similar concern and ruled out ACS and followed with cardiology follow up. No PND, palpitations, edema, cough, nausea, vomiting, diarrhea or urinary symptoms. 2024 cardiac catheterization patent proximal RCA stent, proximal LAD stenosis with PCI and YOVANA placed. In ED Trop negative. EKG showing sinus rhythm with 1st degree block. Admitted for further evaluation and monitoring Hospital course The patient was evaluated for chest discomfort and lightheadedness with EKG not showing any ST\T wave changes to suggest ACS and Trop trended negative. He had recent YOVANA on 10/2024 and kept on on Plavix and Eliquis with Tele monitoring as Cardiology evaluated him and recommended to cut down his CHF medications for symptomatic orthostatice hpypotension. he felt much better after we discontinued Entresto and decreased Carvedilol dose which will continue at time of discharge with a plan to monitor blood pressure at home and follow with cardiology as outpatient for further adjustments of his medications. He also had a repeat Echo showing EF of 10% (similar to last year) with dilated ventricles and moderate MR. As he was treated for acute on chronic combined systolic and diastolic CHF execerebation as Elevated BNP trending down 2470 > 1302 with IV lasix with good response. He was able to ambulate on room air with no reported dyspnea. Discharge plan Stop Entresto for now. Hold and monitor blood pressure at home. follow with cardiology. Decrease Carvedilol to 3.125 (half tablet) two times a day increase physical activity as tolerated Time Attestation Discharge Coordination Time (in mins): 41 Quality: Safe Use of Opioids Does Pt have an Active Cancer Diagnosis on the Problem List?: No Quality: Stroke Does the patient have a stroke diagnosis?: No Physical Exam Vital Signs: Vital Signs: Last Vital Signs Temp 97.0 F 04/09/25 08:00 Pulse 73 04/09/25 08:00 Resp 18 04/09/25 08:00 BP 110/69 04/09/25 08:00 Pulse Ox 97 04/09/25 08:00 O2 Del Method Room Air 04/09/25 08:00 BMI result Body Mass Index 30.1 Const: Other: Constitutional : interactive, not in distress Cardiovascular : no JVP, no lower extremity edema Respiratory : bilateral chest movement, not in resp distress Gastrointestinal: soft, lax, Non tender Skin : Warm, Dry Neurological : Alert & oriented , No focal deficit DS: Data Imaging Chest x-ray: Radiologist's impression: 1. Bilateral consolidation, differential considerations noted Discharge Plan Discharge Anticipated Discharge Date/Time: 04/09/25 11:50 Patient Disposition: Home, Self-Care Discharge Diagnosis: Heart failure exacerbation Orthostatic hypotension Referrals: Imelda Sepulveda MD [Primary Care Provider] - 1 Week Discharge Medications: Continued spironolactone 25 mg tablet 25 mg PO DAILY 90 Days Qty: 90 3RF furosemide 80 mg tablet 80 mg PO DAILY ivabradine [Corlanor] 5 mg tablet 5 mg PO BID Jardiance 10 mg tablet 10 mg PO DAILY rosuvastatin 40 mg tablet 40 mg PO BEDTIME ezetimibe 10 mg tablet 10 mg PO DAILY Eliquis 5 mg tablet 5 mg PO BID Qty: 60 5RF Rx Instructions: New clopidogrel [Plavix] 75 mg tablet 75 mg PO DAILY Qty: 30 3RF Rx Instructions: ON FIRST DAY ONLY - Take 4 tablets, then take 1 tablet daily Changed carvedilol 6.25 mg Tablet 3.125 mg PO BID Qty: 30 0RF Rx Instructions: must administer with a meal/food Held Entresto 24-26 mg tablet 1 tab PO BID Qty: 180 1RF Hold Instructions: Hold and monitor blood pressure at home. follow with cardiology. Discharge Orders: Discharge Order (Routine); Ordered 04/09/25 Ordered By: Justin James Diet: Low salt diet Activity on Discharge: As tolerated Stand Alone Forms: Patient Portal Discharge page Print Language: Other Care Plan Goals: Stop Entresto for now. Hold and monitor blood pressure at home. follow with cardiology. Decrease Carvedilol to 3.125 (half tablet) two times a day increase physical activity as tolerated Health Concerns: Heart failure Orthostatic hypotension Plan of Treatment: Hold Entresto Decrease Carvedilol Follow with cardiology Assessment: as above
[2025-04-09 12:00] VITALS: BP 107/69; PULSE 88; RESP 18; TEMP 36.2; O2SAT 98
--- NOTE | 2025-04-09 12:12 | MHC.CM.PN ---
Patient has been medically cleared for dc to home today, self care. [facility] services should resume as before.
--- NOTE | 2025-04-09 14:13 | P.CDIM_ITS ---
PROVIDER RESPONSE TEXT: To clarify, the appropriate diagnosis supported by the clinical indicators: Overweight QUERY TEXT: PHYSICIAN'S DOCUMENTATION REQUEST Date of Query: 04/09/2025 12:02 PM EDT Patient Name: Trenton Wallace Admit Date: 04/07/2025 Dear Justin James MD, A review of the medical record indicates additional documentation may be needed. Please review below and update the documentation accordingly. Clinical Indicators: Height: 5ft 6in Weight: 84.6kg BMI: 30.1 Other Clinical Notes Supporting Significance of the BMI: Cardiology note 04/08/25 - BMI 30.1 If possible, please provide an associated diagnosis related to the abnormal BMI, such as: Overweight Obesity Due to excess calories Obesity Drug induced Obesity Due to other cause Specify the other cause Other (explain) Clinically unable to determine (explain) Thank you, Minal Kelly, CCS, CDIS Use of terms such as suspected, likely, concern for, or probable (associated with a specific diagnosi s that is being evaluated, monitored, or treated as if it exists) are acceptable and can be coded in the inpatient se tting, when documented at the time of discharge. Please use your independent medical judgment in providing your response. THIS QUERY IS PART OF THE PERMANENT MEDICAL RECORD
== END 2025-04-09 16:25 | disposition home or self-care (01) | DRG 291 ==
LOC: HO.ED 08:07 → HO.EDOVER 08:10 → HO.IMC 10:56
PROVIDERS: Student in an Organized Health Care Education/Training Program; Admitting Provider Physician Assistant Medical; Emergency Provider Emergency Medicine; PCP Internal Medicine; Visit Provider Student in an Organized Health Care Education/Training Program
DX: I11.0 Hypertensive heart disease with heart failure (principal); I50.43 Acute on chronic combined systolic (congestive) and diastolic (congestive) heart failure; I25.10 Atherosclerotic heart disease of native coronary artery without angina pectoris; I42.8 Other cardiomyopathies; E78.5 Hyperlipidemia, unspecified; E66.3 Overweight; Z68.30 Body mass index [BMI] 30.0-30.9, adult; Z20.822 Contact with and (suspected) exposure to COVID-19; Z95.810 Presence of automatic (implantable) cardiac defibrillator; Z95.5 Presence of coronary angioplasty implant and graft; Z91.119 Patient's noncompliance with dietary regimen due to unspecified reason; Z79.01 Long term (current) use of anticoagulants; Z79.02 Long term (current) use of antithrombotics/antiplatelets; Z79.899 Other long term (current) drug therapy
CPT/HCPCS: 0241U; 36415; 71045; 80053; 83735; 83880; 84484; 85025; 85610; 93005; 93306; 99285; J1938; Q9957

== ENCOUNTER → 2025-04-07 05:20 | Outpatient (BNV) | payer OTHER, SELFPAY | PROVIDERS: Admitting Provider Physician Assistant Medical; Emergency Provider Emergency Medicine; PCP Internal Medicine; Visit Provider Internal Medicine Cardiovascular Disease | DX: I44.0 Atrioventricular block, first degree (principal); I45.10 Unspecified right bundle-branch block; I45.9 Conduction disorder, unspecified | CPT/HCPCS: 93010 ==

== ENCOUNTER 2025-04-07 07:35 | Outpatient (BNV) | payer OTHER, SELFPAY | END 2025-04-09 07:00 | PROVIDERS: Admitting Provider Physician Assistant Medical; Emergency Provider Emergency Medicine; PCP Internal Medicine; Visit Provider Internal Medicine Cardiovascular Disease | DX: I51.7 Cardiomegaly (principal); I34.0 Nonrheumatic mitral (valve) insufficiency; I27.20 Pulmonary hypertension, unspecified | CPT/HCPCS: 93306 ==

== ENCOUNTER → 2025-04-07 07:35 | Outpatient (BNV) | payer OTHER, SELFPAY | PROVIDERS: Admitting Provider Physician Assistant Medical; Emergency Provider Emergency Medicine; PCP Internal Medicine; Visit Provider Internal Medicine Cardiovascular Disease | DX: I50.9 Heart failure, unspecified (principal) | CPT/HCPCS: 99232 ==

== ENCOUNTER → 2025-04-07 07:35 | Outpatient (BNV) | payer OTHER, SELFPAY | PROVIDERS: Admitting Provider Physician Assistant Medical; Emergency Provider Emergency Medicine; PCP Internal Medicine; Visit Provider Student in an Organized Health Care Education/Training Program | DX: E11.621 Type 2 diabetes mellitus with foot ulcer (principal); I50.9 Heart failure, unspecified; R07.9 Chest pain, unspecified; J44.9 Chronic obstructive pulmonary disease, unspecified | CPT/HCPCS: 99222 ==

== ENCOUNTER 2025-04-11 08:51 | Inpatient (IN) | payer OTHER, SELFPAY ==
[2025-04-11] VITALS (19 sets, daily range): BP systolic 108–147; BP diastolic 67–103; PULSE 56–115; RESP 14–32; TEMP 36.6–37.4; O2SAT 93–99; BMI 28.0
--- NOTE | ~2025-04-11 | XR_ITS ---
EXAMINATION: XR CHEST CLINICAL INFORMATION: chest pain, SOB COMPARISON: 04/07/2025. TECHNIQUE: Frontal view of the chest was obtained. FINDINGS: There is left-sided single-lead AICD device with lead extending into the right ventricle. There is cardiomegaly. Hilar silhouettes demonstrate mild vascular congestion. Aortic mural calcifications. No mediastinal contour abnormality. Lungs demonstrate interstitial pulmonary edema. No gross airspace disease or effusion. No pneumothorax. No focal osseous or soft tissue abnormality. XR/XR chest 1V IMPRESSION: 1. Cardiomegaly with mild interstitial pulmonary edema. 2. Stable single lead AICD device. Electronically signed by: Aman Garcia MD 04/11/2025 09:44 AM EDT
--- NOTE | 2025-04-11 08:54 | ECG_ITS ---
Test Reason : chest pain Blood Pressure : */* mmHG Vent. Rate : 126 BPM Atrial Rate : * BPM P-R Int : * ms QRS Dur : 182 ms QT Int : 402 ms P-R-T Axes : * 138 -30 degrees QTcB Int : 582 ms Wide QRS tachycardia Right bundle branch block Septal infarct , age undetermined T wave abnormality, consider inferior ischemia Abnormal ECG When compared with ECG of 07-Apr-2025 23:58, Wide QRS tachycardia has replaced Sinus rhythm Vent. rate has increased by 57 bpm Referred By: Generic ED Physician Electronically Signed By: Zuhair Hernandes
[2025-04-11 09:12] LABS: MANUAL DIFF FLAG NO
[2025-04-11 09:13] LABS: Basophils Absolute Auto 0.1 X10*3/uL (0.0-0.2); Basophils Percent Auto 0.6 % (0-2); Eosinophils Absolute Auto 0.1 X10*3/uL (0.0-0.4); Eosinophils Percent Auto 0.9 % (0-4); Hematocrit 49.6 % (42.0-52.0); Hemoglobin 16.7 g/dl (14.0-18.0); Imm Gran Abs Auto 0.02 X10*3/uL (0.00-0.03); Imm Gran Pct Auto 0.2 % (0.0-0.4); Lymphocytes Absolute Auto 1.8 X10*3/uL (1.2-4.9); Lymphocytes Percent Auto 18.5 % (20-40); Mean Corpuscular HGB Conc 33.7 g/dl (31.0-36.0); Mean Corpuscular Hemoglobin 31.2 pg (27.0-33.0); Mean Corpuscular Volume 92.7 fL (80.0-98.0); Mean Platelet Volume 11.2 fL (9.4-12.4); Monocytes Absolute Auto 0.6 X10*3/uL (0.1-1.2); Monocytes Percent Auto 6.3 % (2-11); Neutrophils Percent Auto 73.5 % (45-73); Platelet Count 251 X10*3/uL (160-400); Red Blood Count 5.35 X10*6/uL (4.60-5.80); Red Cell Distribution Width 12.9 % (11.0-16.0); White Blood Count 9.5 X10*3/uL (4.8-10.8)
[2025-04-11 09:19] LABS: INTERNATIONAL NORM RATIO 1.2 (0.9-1.1); Prothrombin Time 14.3 SEC (10.9-12.4)
--- NOTE | 2025-04-11 09:32 | ED.CHESTPAIN ---
HPI - Chest Pain General Chief Complaint: Chest Pain Stated Complaint: Chest pain Time Seen by Provider: 04/11/25 09:03 Source: patient and other (GRAIN HANDLER at the bedside corroborating history) Mode of arrival: ambulatory Limitations: language barrier (Argentine-speaking) History of Present Illness ED Provider: Apolonia Nascimento PA-C HPI narrative: 70-year-old Argentine-speaking male who is accompanied by his GRAIN HANDLER with medical history of a flutter on Eliquis, CHF with reduced EF 10-15%, cardiomyopathy, CAD, HLD, ventricular arrhythmia on amiodarone, ICD, presents to the ED today due to chest pain and shortness of breath. GRAIN HANDLER states she went over this morning and found the patient complaining of chest pain, diaphoretic, dizzy with increased work of breathing and brought him in for evaluation. Patient was recently admitted to [facility] for acute CHF exacerbation, during this time carvedilol was decreased from 6 mg to 3.1 b.i.d. Patient has been compliant with medication changes. Denies urinary symptoms, nausea, vomiting, black/tarry stool, headache. MD complaint: chest pain Pertinent past history: coronary artery disease, prior AR and other (ICD) Onset (ago): hour(s) Timing of current episode: constant Prior episodes: Yes Onset: during rest Associated symptoms: diaphoresis and dyspnea Risk Factors Coronary artery disease risk factors: hyperlipidemia and hypertension Related Data Home Medications ?Medication ?Instructions ?Recorded ?Confirmed ezetimibe 10 mg tablet 10 mg PO DAILY 08/18/20 04/11/25 rosuvastatin 40 mg tablet 40 mg PO BEDTIME 08/18/20 04/11/25 empagliflozin 10 mg tablet 10 mg PO DAILY 02/27/25 04/11/25 (Jardiance) furosemide 80 mg tablet 80 mg PO DAILY 02/27/25 04/11/25 ivabradine 5 mg tablet (Corlanor) 5 mg PO BID 02/27/25 04/11/25 acetaminophen 650 mg 650 mg PO TID PRN pain 04/11/25 04/11/25 tablet,extended release amiodarone 200 mg tablet 200 mg PO DAILY 04/11/25 04/11/25 carvedilol 6.25 mg tablet 3.125 mg PO BID 04/11/25 04/11/25 ticagrelor 90 mg tablet (Brilinta) 90 mg PO BID 04/11/25 Previous Rx's ?Medication ?Instructions ?Recorded spironolactone 25 mg tablet 25 mg PO DAILY 90 days #90 tabs 04/20/23 apixaban 5 mg tablet (Eliquis) 5 mg PO BID #60 tabs 03/28/25 clopidogrel 75 mg tablet (Plavix) 75 mg PO DAILY #30 tabs 03/29/25 Allergies Allergy/AdvReac Type Severity Reaction Status Date / Time No Known Allergies Allergy Verified 04/11/25 09:09 Review of Systems Review of Systems: CONST: Negative for fever, body aches and chills. POS fatigue HENT: Negative for neck pain/stiffness, headache, congestion, sore throat, swelling. EYES: Negative for discharge/pain or vision changes. RESP: Negative for cough/hemoptysis and shortness of breath. CV: POS chest pain, difficulty breathing, diaphoretic. ABD: Negative pain, nausea, vomiting. : Negative increase frequency, dysuria, blood in urine or stool. MUSC: Negative for muscle aches, edema. SKIN: Negative rash, lesions/sores. NEURO: Negative headache, dizziness, weakness. Yes all other systems are reviewed and are negative PMF Past Medical History Attestation statement: The following information was validated with the patient. Source: old records reviewed, obtained from family (Nephew and GRAIN HANDLER at the bedside) and nursing notes reviewed Medical History ICD (implantable cardioverter-defibrillator) in place Atrial flutter by electrocardiogram Cardiomyopathy Anomalous coronary artery origin Atherosclerotic cardiovascular disease Heart failure with reduced ejection fraction HLD (hyperlipidemia) Acute on chronic combined systolic and diastolic CHF (congestive heart failure) Nonischemic cardiomyopathy CAD (coronary artery disease) Hypertension Pacemaker Surgical History Stented coronary artery S/P cardiac cath Hx of cardiac catheterization Family History Family History Father No problems noted. Mother No problems noted. Social History Social History Household Members: None Household Members Other:: Dog Housing: Apartment Do you presently have visiting nurse or other home services: Yes (caregiver Marta.) Alcohol intake: current Alcohol intake frequency: a few times a month Alcohol type: beer Patient Tobacco Use Status: Never used Tobacco Smoked in Last 30 Days: No e-Cigarette/Vaping Use: Never Used Second Hand Smoke Exposure: No Use of substances other than those prescribed or required for medical reasons: No Substance Use Type: Marijuana Advance Directives: Yes Advance Directives on File: Yes Advance Directives Date on File: 10/02/24 Do you have a plan to hurt others: No Plan service: No Current occupational status: disabled Physical Exam Vital Signs: Vital Signs: Last Vital Signs Temp 97.8 F 04/11/25 13:38 Pulse 58 04/11/25 13:38 Resp 24 H 04/11/25 13:38 BP 115/74 04/11/25 13:38 Pulse Ox 98 04/11/25 13:38 O2 Del Method Nasal Cannula 04/11/25 13:38 O2 Flow Rate 2 04/11/25 13:38 Oxygen Flow Rate 0 04/11/25 10:49 BMI result Body Mass Index 28.0 GENERAL APPEARANCE: ?AxOx4, tired/chronically ill-appearing, in mild distress due to increased work of breathing and chest pain. HEENT: ?NC, AT. MMM. EOMI, clear conjunctiva, oropharynx clear. HEART:? tachycardic rate with irregular rhythm LUNGS:? increased work of breathing, diminished lung sounds B/L with mild crackles ABDOMEN: ?Soft, nontender, nondistended with good bowel sounds heard. EXTREMITIES: ?Without cyanosis, clubbing or edema. NEUROLOGICAL: ?Grossly nonfocal. Alert and oriented, moving all 4 extremities Skin: ?Warm and dry without any rash. Course Reevaluation(s) Reevaluation #1: 10:35 am I PERFORMED THE EMERGENT SEDATION FOR CARDIOVERSION PATIENT WAS GIVEN IV PROPOFOL 60 MG OF FENTANYL 50 MCG HE WAS CARDIOVERTED WITH 200 JOULES TO SINUS RHYTHM Time: 10:38 Medications Administered Generic Name Dose Route Start Last Admin Trade Name Freq PRN Reason Stop Dose Admin Amiodarone HCl 200 mg 04/11/25 11:50 04/11/25 12:08 Amiodarone Hcl 200 Mg Tablet PO 200 mg BID NATALIIA Administration Furosemide 40 mg 04/11/25 11:50 04/11/25 12:08 Furosemide 40 Mg/4 Ml Vial IVPUSH 40 mg DAILY NATALIIA Administration Protocol Discontinued Medications Generic Name Dose Route Start Last Admin Trade Name Theodore PRN Reason Stop Dose Admin Fentanyl 200 mcg 04/11/25 10:08 04/11/25 10:26 Fentanyl Citrate/Pf 100 Mcg/2 Ml Vial IVPUSH 04/11/25 10:09 25 mcg ONCE ONE Administration Protocol Furosemide 40 mg 04/11/25 09:31 04/11/25 09:35 Furosemide 40 Mg/4 Ml Vial IVPUSH 04/11/25 09:32 40 mg ONCE ONE Administration Protocol Amiodarone HCl 150 mg in 100 mls @ 600 mls/hr 04/11/25 09:41 04/11/25 10:02 Nexterone IV 04/11/25 09:50 Infused ONCE ONE Infusion Midazolam HCl 2 mg 04/11/25 10:08 04/11/25 10:49 Midazolam Hcl 2 Mg/2 Ml Vial IVPUSH 04/11/25 10:09 Not Given ONCE ONE Naloxone HCl 2 mg 04/11/25 10:08 04/11/25 10:49 Naloxone Hcl 2 Mg/2 Ml Syringe IVPUSH 04/11/25 10:09 Not Given ONCE ONE Propofol 50 mg 04/11/25 10:12 04/11/25 10:17 Propofol 200 Mg/20 Ml Vial IVPUSH 04/11/25 10:13 50 mg ONCE ONE Administration Procedures Procedure Narrative Procedure Narrative: CARDIOVERSION PT WAS CARDIOVERTED TO SINUS RYTM WITH 200 j SYNC Procedural Sedation Indication: other (CARDIOVERSION) ASA Class: III Mallampati Class: III Time of Last PO Intake: 07:00 Preparation: radiation monitor applied, pulse oximeter, capnometry used, supplemental O2 applied, reversal agents at bedside, suction/airway equipment at bedside and IV secured Fentanyl: IV Fentanyl dose (mcg): 50 IV Propofol dose (mg): 60 Patient Tolerated Procedure: well Complications: none Additional Comments: SEDATION WAS PERFORMED BY DR. RDZ Medical Decision Making Medical Decision Making MDM Narrative: 70-year-old Argentine-speaking male who is accompanied by his GRAIN HANDLER with medical history of a flutter on Eliquis, CHF with reduced EF 10-15%, cardiomyopathy, CAD, HLD, ventricular arrhythmia on amiodarone, ICD, presents to the ED today due to chest pain and shortness of breath. GRAIN HANDLER states she went over this morning and found the patient complaining of chest pain, diaphoretic, dizzy with increased work of breathing and brought him in for evaluation. Patient was recently admitted to [facility] for acute CHF exacerbation, during this time carvedilol was decreased from 6 mg to 3.1 b.i.d. Patient has been compliant with medication changes. Patient initially tachycardic at 115 beats per minute, tachypneic with 25 respirations per minute, afebrile. O2 sat variable between 94 and 96%, place patient on 2 L of oxygen through nasal cannula for comfort. EKG reveals AFlutter with RVR, without ST elevation/depression/T-wave abnormalities, initial troponin WNL (17.6)- less likely ACS. CXR reveals cardiomegaly with pulmonary edema, without evidence of pleural effusion. Labs without leukocytosis, elevated BNP at 1883, on chart review BNP is chronically elevated, creatinine elevated at 1.4 this is most likely due to poor perfusion from quivering ventricles. Patient given 40mg of Lasix for fluid overload. Patient given 150mg over 10 minutes recommended by [facility] Dr. Hernandes Patient is on Amiodarone daily, will change dose to [address] Hernandes. I spoke with my attending Dr. Rdz about the patient who consulted Cardiology Dr. Hernandes, who used a [employer] interrogator to check the functionality of the ICD. Patient sustained a flutter with RVR during this time. Transcutaneous pacing was trialed without effect. Patient was then given conscious sedation done by Dr. Rdz with Dr. Hernandes at bedside performing electrical cardioversion. Patient was shocked twice before returning to normal sinus rhythm with first-degree AV block (my attending Dr. Rdz added the procedure note under the course of this note). Patient tolerated this procedure well, when coming to from sedation stated that he felt much better. Currently consulting with hospitalist to admit to medicine. Elisabeth Sanchez PA-C consulted who agreed to admission to medicine. Differential Diagnosis Differential Diagnoses: The differential diagnosis associated with the presentation includes Dysrhythmia ACS CHF exacerbation Electrolyte abnormality Pleural effusion Admission/Observation Consideration of admission/observation: Escalation of care including admission/observation considered Consult Healthcare Provider Management of the patient was discussed with: Hospitalist Lab Data MDM Lab Attestation statement: I reviewed the patient's lab results. 04/11/25 09:09 04/11/25 09:09 Labs: Lab Results 04/11/25 04/11/25 Range/Units 09:09 10:48 WBC 9.5 (4.8-10.8) X10*3/uL RBC 5.35 (4.60-5.80) X10*6/uL Hgb 16.7 (14.0-18.0) g/dl Hct 49.6 (42.0-52.0) % MCV 92.7 (80.0-98.0) fL MCH 31.2 (27.0-33.0) pg MCHC 33.7 (31.0-36.0) g/dl RDW 12.9 (11.0-16.0) % Plt Count 251 D (160-400) X10*3/uL MPV 11.2 (9.4-12.4) fL Immature Gran % (Auto) 0.2 (0.0-0.4) % Neut % (Auto) 73.5 H (45-73) % Lymph % (Auto) 18.5 L (20-40) % [place] % (Auto) 6.3 (2-11) % Eos % (Auto) 0.9 (0-4) % Baso % (Auto) 0.6 (0-2) % Lymph # (Auto) 1.8 (1.2-4.9) X10*3/uL [place] # (Auto) 0.6 (0.1-1.2) X10*3/uL Eos # (Auto) 0.1 (0.0-0.4) X10*3/uL Baso # (Auto) 0.1 (0.0-0.2) X10*3/uL Abs Immat Gran (auto) 0.02 (0.00-0.03) X10*3/uL Absolute Neuts (auto) 7.0 (2.0-8.3) x10*3/uL Absolute Nucleated RBC 0.000 (0.0-0.012) X10*3/uL Nucleated RBC % (auto) 0.0 (0.0-0.2) /100WBC PT 14.3 H D (10.9-12.4) SEC INR 1.2 H (0.9-1.1) Sodium 140 (135-145) mmol/L Potassium 4.4 (3.3-5.1) mmol/L Chloride 102 (96-108) mmol/L Carbon Dioxide 26 (22-29) mmol/L Anion Gap 16 (12-20) BUN 25 H (9-16) mg/dL Creatinine 1.41 H (0.5-1.4) mg/dL Estim Creat Clear Calc 48.7 Estimated GFR 50 Random Glucose 189 H (60-115) mg/dL Calcium 9.3 (8.4-10.2) mg/dL Magnesium 2.3 (1.6-2.6) mg/dL Total Bilirubin 1.1 H (0.0-1.0) mg/dL Direct Bilirubin 0.4 (0.0-0.5) mg/dL AST 33 (5-37) U/L ALT 45 H (0-40) U/L Alkaline Phosphatase 87 (39-117) U/L Troponin I High Sens 17.6 (<3.5-35.0) ng/L B-Natriuretic Peptide 1883 H (<100) pg/mL Total Protein 7.9 (6.5-8.0) g/dL Albumin 4.7 (3.5-5.0) g/dL TSH 2.70 (0.32-4.0) uIU/mL Urine Color Yellow Urine Appearance Cloudy Urine pH 5.5 (5.0-9.0) Ur Specific [place] 1.010 (1.005-1.025) Urine Protein Trace (Neg-Trace) mg/dL Urine Glucose (UA) >=1000 H (Negative) mg/dL Urine Ketones Negative (Negative) mg/dL Urine Blood Negative (Negative) Urine Nitrite Negative (Negative) Ur Leukocyte Esterase Negative (Negative) Urine RBC 0-2 (0-2) /HPF Urine WBC 0-5 (0-5) /HPF Ur Squamous Epith Cells 0-2 (0-2) /HPF Urine Bacteria None Seen (None Seen) Hyaline Casts 3-5 (0-2) /LPF Independent Interpretation I performed an independent interpretation of an: EKG and Plain X-Ray Interpretation: I independently reviewed EKG and chest x-ray EKG: Wide QRS tachycardia Right bundle branch block Septal infarct , age undetermined T wave abnormality, consider inferior ischemia Abnormal ECG When compared with ECG of 07-Apr-2025 23:58, Wide QRS tachycardia has replaced Sinus rhythm Vent. rate has increased by 57 bpm Radiology Impression Radiologist Impression: FINDINGS: There is left-sided single-lead AICD device with lead extending into the right ventricle. There is cardiomegaly. Hilar silhouettes demonstrate mild vascular congestion. Aortic mural calcifications. No mediastinal contour abnormality. Lungs demonstrate interstitial pulmonary edema. No gross airspace disease or effusion. No pneumothorax. No focal osseous or soft tissue abnormality. XR/XR chest 1V IMPRESSION: 1. Cardiomegaly with mild interstitial pulmonary edema. 2. Stable single lead AICD device. Electronically signed by: Aman Garcia MD 04/11/2025 09:44 AM EDT RP Dictated By: Aman Garcia MD Signed By: <Electronically signed by Aman Garcia MD in OV> 04/11/25 0944 Independent Historian Clinical information obtained from an independent historian. History obtained from or confirmed by: Other (Nephew and GRAIN HANDLER at bedside) External Record Review External record reviewed: Inpatient record, Office record and Outpatient record Chronic Conditions Patient?s care impacted by: Hypertension and Other (ICD, a flutter on Eliquis, CAD,) Critical Care Time Critical Care Time Critical Care Time: Yes Total Critical Care Time: 60 Attestation: CARDIOVERSION PERFORMED BY DR. RDZ AND DEEP SEDATION Discharge Plan Discharge Clinical Impression: Atrial flutter, Acute decompensated heart failure Patient Disposition: Admitted As Inpatient Interventions: Admission Worksheet (ED) Last Done: 04/11/25 12:52
[2025-04-11 09:35] LABS: Anion Gap 16 (12-20); Blood Urea Nitrogen 25 mg/dL (9-16); Calcium 9.3 mg/dL (8.4-10.2); Carbon Dioxide 26 mmol/L (22-29); Chloride 102 mmol/L (96-108); Creatinine Clr Calc Pharmacy 48.7; Estimated Glomerular Filt Rate 50; Glucose Random 189 mg/dL (60-115); Potassium 4.4 mmol/L (3.3-5.1); Sodium 140 mmol/L (135-145)
[2025-04-11] MEDS: Furosemide 40 MG/4 ML VIAL IVPUSH ×2 (09:35→12:08)
[2025-04-11 09:37] LABS: B Type Natriuretic Peptide 1883 pg/mL (<100); Troponin-I High Sensitivity 17.6 ng/L (<3.5-35.0)
[2025-04-11] MEDS: Amiodarone/Dextrose 150 MG/100 ML PLAST..BAG 600 MG IV (09:49)
[2025-04-11 09:58] LABS: Alanine Aminotransferase 45 U/L (0-40); Albumin Level 4.7 g/dL (3.5-5.0); Alkaline Phosphatase 87 U/L (39-117); Aspartate Amino Transferase 33 U/L (5-37); Bilirubin Direct 0.4 mg/dL (0.0-0.5); Bilirubin Total 1.1 mg/dL (0.0-1.0); Magnesium 2.3 mg/dL (1.6-2.6); Total Protein 7.9 g/dL (6.5-8.0)
[2025-04-11] MEDS: propofoL 200 MG/20 ML VIAL 50 MG IVPUSH (10:17)
--- NOTE | 2025-04-11 10:24 | ECG_ITS ---
Test Reason : chest pain Blood Pressure : */* mmHG Vent. Rate : 78 BPM Atrial Rate : 78 BPM P-R Int : 298 ms QRS Dur : 198 ms QT Int : 532 ms P-R-T Axes : 38 148 -8 degrees QTcB Int : 606 ms Sinus rhythm with 1st degree A-V block Right bundle branch block Septal infarct , age undetermined Lateral infarct , age undetermined T wave abnormality, consider inferior ischemia Abnormal ECG When compared with ECG of 11-Apr-2025 08:55, Sinus rhythm has replaced Wide QRS tachycardia Vent. rate has decreased by 48 bpm Referred By: Justin James Electronically Signed By: Zuhair Hernandes
[2025-04-11] MEDS: fentaNYL citrate/PF 100 MCG/2 ML VIAL 200 MCG IVPUSH (10:26)
--- OUTSIDE RECORDS SUMMARY | 2025-04-11 10:31 | XMS_ITS | Patient Health Record ---
Author Organization [facility] Address [address] [place] [address] Care Team Providers Care Protein Scientist Name Role Phone Imelda Sepulveda Primary Care Provider Unavailab Fabio Amin Unavailable [phone] Reason For Referral No Information Medications Medication [...] No Encounters Encounter Location Date Provider Diagnosis [facility] [address] [place] [address] 08/14/2024 Fabio Silverio [facility] [address] [place] [address] 11/15/2024 Fabio Silverio Plan Of Treatment No Information Insurance Providers Payer Name Payer Address Payer Phone Subscriber Number Group Number Insured Name Patient Relationship to Insured Coverage Start Date Coverage End Date [facility] [employer] Claims [address] [place] [phone] [facility] [id number] [place] Dasilva Self - patient is the insured Medical (General) History Medical History History ICD Code Heart disease High Blood Pressure Stroke Surgical History Surgery Date(Month/Year) cardiac pacemeker
--- NOTE | 2025-04-11 10:33 | MHC.EDTECH ---
this tech completes ekg per dr. prather's verbal order and ekg was immediately reviewed by dr. prather with ed attending at bedside.
[2025-04-11 11:02] LABS: Appearance Urine Cloudy; Color Urine Yellow; Glucose Urine UA >=1000 mg/dL (Negative); Leukocyte Esterase Urine Negative (Negative); Nitrite Urine Negative (Negative); PH 5.5 (5.0-9.0); UMIC TRIGGER UACC YES; Urine Blood Negative (Negative); Urine Ketones Negative (Negative); Urine Protein Trace mg/dL (Neg-Trace)
[2025-04-11 11:10] LABS: Bacteria Urine None Seen (None Seen); RBC Urine 0-2 /HPF (0-2); Squamous Epithelial Cell Urine 0-2 /HPF (0-2); WBC Urine 0-5 /HPF (0-5)
--- NOTE | 2025-04-11 11:17 | PM.IMHP ---
History of Present Illness Date of Service: 04/11/25 Chief Complaint: Heart failure, a flutter 70-year-old Turkmen-speaking male who is here with his PORTRAIT STUDIO PHOTOGRAPHER we will past medical history of a flutter, CHF with reduced EF of 10-15%, cardiomyopathy, CAD, hyperlipidemia, ventricular arrhythmia on amiodarone, ICD, presented to the ED this morning due to chest pain and shortness of breath. Per his PORTRAIT STUDIO PHOTOGRAPHER he was recently discharged from the hospital, when she saw him yesterday, he was ambulatory with cane in his usual state of health, this morning PORTRAIT STUDIO PHOTOGRAPHER went and found him short of breath diaphoretic and dizzy with increased work of breathing and he was brought to the ED. Patients pacemaker was interrogated by Cardiology and he developed Abflutter with RVR without evidence of ST elevations or depressions or T-wave abnormalities. His initial troponin was within normal limits is felt to be less likely due to ACS. Chest x-ray revealed cardiomegaly with pulmonary edema without evidence of pleural effusion, no leukocytosis, his BNP was elevated at 1883, and his creatinine was elevated at 1.4. No leukocytosis, TSH WNL, Mag WNL. He was initially given 40 mg of Lasix for fluid overload and subsequently got an additional 150 mg over 10 minutes recommended by Cardiology. They attempted transcutaneous pacing without affect. Patient was subsequently given conscious sedation and an electrical cardioversion was performed. Patient required 2 shocks before returning to normal sinus rhythm and he tolerated this well. On exam he reports that he feels better his heart rate is in the 70s, his blood pressure is stable. These saturating 90% on 2 L. denies any shortness of breath, or chest pain. Reports that he is feeling better. He is admitted to telemetry unit for further management of acute on chronic heart failure, a flutter. Review of Systems Review of Systems: Denies any shortness of breath, chest pain, dizziness, lightheadedness, abdominal pain or discomfort, nausea or vomiting, headaches or any other concerning symptoms. [facility] Medical History ICD (implantable cardioverter-defibrillator) in place Atrial flutter by electrocardiogram Cardiomyopathy Anomalous coronary artery origin Atherosclerotic cardiovascular disease Heart failure with reduced ejection fraction HLD (hyperlipidemia) Acute on chronic combined systolic and diastolic CHF (congestive heart failure) Nonischemic cardiomyopathy CAD (coronary artery disease) Hypertension Pacemaker Family History Father No problems noted. Mother No problems noted. Surgical History Stented coronary artery S/P cardiac cath Hx of cardiac catheterization Social History Household Members: None Household Members Other:: Dog Housing: Apartment Do you presently have visiting nurse or other home services: Yes (caregiver Marta.) Alcohol intake: current Alcohol intake frequency: a few times a month Alcohol type: beer Patient Tobacco Use Status: Never used Tobacco Smoked in Last 30 Days: No e-Cigarette/Vaping Use: Never Used Second Hand Smoke Exposure: No Use of substances other than those prescribed or required for medical reasons: No Substance Use Type: Marijuana Advance Directives: Yes Advance Directives on File: Yes Advance Directives Date on File: 10/02/24 Do you have a plan to hurt others: No Plan service: No Current occupational status: disabled Meds Allergies Allergy/AdvReac Type Severity Reaction Status Date / Time No Known Allergies Allergy Verified 04/11/25 09:09 Active Medications: Current Medications Flumazenil (Flumazenil 0.5 Mg/5 Ml Vial) 0.2 mg IV ONCE PRN PRN Reason: benzo reversal Home Medications ?Medication ?Instructions ?Recorded ?Confirmed ?Last Taken ?Type ezetimibe 10 mg tablet 10 mg PO DAILY 08/18/20 04/07/25 04/07/25 History rosuvastatin 40 mg tablet 40 mg PO BEDTIME 08/18/20 04/07/25 04/07/25 History empagliflozin 10 mg tablet 10 mg PO DAILY 02/27/25 04/07/25 04/07/25 History (Jardiance) furosemide 80 mg tablet 80 mg PO DAILY 02/27/25 04/07/25 04/07/25 History ivabradine 5 mg tablet (Corlanor) 5 mg PO BID 02/27/25 04/07/25 04/07/25 History acetaminophen 650 mg 650 mg PO TID PRN pain 04/11/25 Unknown History tablet,extended release amiodarone 200 mg tablet 200 mg PO DAILY 04/11/25 Unknown History aspirin 81 mg chewable tablet 1 tab PO DAILY 04/11/25 Unknown History carvedilol 6.25 mg tablet 6.25 mg PO BID 04/11/25 Unknown History ticagrelor 90 mg tablet (Brilinta) 90 mg PO BID 04/11/25 Unknown History Physical Exam Vital Signs and Narrative: Vital Signs: Last Vital Signs Temp 99.3 F 04/11/25 09:06 Pulse 97 04/11/25 09:54 Resp 32 H 04/11/25 09:54 BP 147/87 H 04/11/25 09:54 Pulse Ox 98 04/11/25 09:54 O2 Del Method Nasal Cannula 04/11/25 09:54 O2 Flow Rate 2 04/11/25 09:54 BMI result Body Mass Index 28.0 CONST: Alert and oriented, in NAD. Pale HEENT: Normocephalic, atraumatic, MMM, Eyes clear, Neck supple RESP: Lungs clear, RRR even and regular, no increased WOB. HEART:,Irregular rhythm, S1, S2. no edema GI:Abdomen Soft NT, ND. + BS times four :Deferred SKIN: Warm dry and intact, no visible lesions or rashes NEURO:CN II-XII Intact bilaterally, Sensation intact. Speech clear PSYCH: Normal affect Results Labs 04/11/25 09:09 04/11/25 09:09 Labs: Laboratory Results - last 24 hr 04/11/25 04/11/25 09:09 10:48 MCV 92.7 MCH 31.2 MCHC 33.7 RDW 12.9 Plt Count 251 D MPV 11.2 Immature Gran % (Auto) 0.2 Neut % (Auto) 73.5 H Lymph % (Auto) 18.5 L [place] % (Auto) 6.3 Eos % (Auto) 0.9 Baso % (Auto) 0.6 Lymph # (Auto) 1.8 [place] # (Auto) 0.6 Eos # (Auto) 0.1 Baso # (Auto) 0.1 Abs Immat Gran (auto) 0.02 Absolute Neuts (auto) 7.0 Absolute Nucleated RBC 0.000 Nucleated RBC % (auto) 0.0 PT 14.3 H D INR 1.2 H Anion Gap 16 Estim Creat Clear Calc 48.7 Estimated GFR 50 Random Glucose 189 H Calcium 9.3 Magnesium 2.3 Total Bilirubin 1.1 H Direct Bilirubin 0.4 AST 33 ALT 45 H Alkaline Phosphatase 87 Troponin I High Sens 17.6 B-Natriuretic Peptide 1883 H Total Protein 7.9 Albumin 4.7 TSH 2.70 Urine Color Yellow Urine Appearance Cloudy Urine pH 5.5 Ur Specific [place] 1.010 Urine Protein Trace Urine Glucose (UA) >=1000 H Urine Ketones Negative Urine Blood Negative Urine Nitrite Negative Ur Leukocyte Esterase Negative Urine RBC 0-2 Urine WBC 0-5 Ur Squamous Epith Cells 0-2 Urine Bacteria None Seen Hyaline Casts 3-5 Imaging Radiologist's Impressions: Impressions Chest X-Ray 04/11/25 08:25 IMPRESSION: 1. Cardiomegaly with mild interstitial pulmonary edema. 2. Stable single lead AICD device. Electronically signed by: Aman Garcia MD 04/11/2025 09:44 AM EDT RP Assessment and Plan (1) Acute decompensated heart failure: Status: Acute (2) Atrial flutter with rapid ventricular response: Status: Acute Plan 70-year-old male with a complex cardiovascular history including hypertension, SVT, heart failure with reduced EF of 10-15% on recent echo, a ICD, ventricular arrhythmia, on amiodarone CAD with RCA and LAD stent that was placed in October 2024 presented to the ED with shortness of breath, increased work of breathing, chest pain and diaphoresis. His AICD was interrogated and he developed a flutter with RVR which failed transcutaneous pacing. Patient underwent a cardioversion x2 and converted to normal sinus rhythm. Patient will be admitted to telemetry unit for further monitoring and treatment. Medication reconciliation not complete at time of visit. Aflutter with RVR/AICD/HTN/CAD Patient with SOB, MOSQUEDA, chest pain that started this morning. Patient's pacemaker was interrogated and EKG showed Wide QRS tachycardia with ventricular rate of 126, he developed a flutter with RVR, Failed transcutaneous pacing Required cardioversion times 2 and converted to normal sinus rhythm He was given a dose of amiodarone IV x. Lasix 150 mgs over 10 minutes. Hydro Operator recommended to start Amiodarone 200 b.i.d., continue carvedilol 3.125 b.i.d. Continue Eliquis. Entresto on HOLD due to orthostatic hypotension from recent hospitalization. ACS ruled out, Troponins negative and EKG with no Ischemic changes. 10/25/2024 cardiac catheterization patent proximal RCA stent, proximal LAD stenosis with PCI and YOVANA placed. Cardiology consult Monitor on telemetry Acute decompensated heart failure/HFrEF of 10-15% on recent ECHO Patients BNP elevated to 1883, Chronically elevated, most recent BNP on DC 1302. Received Lasix 40 mgs IV in ED Continue Lasix IV 40 mgs daily-First dose today per cardiology recommendations. Recent ECHO on 04/09/2025 revealed LVeF of 10-15% Chest Xray revealed cardiomegaly, with mild interstitial edema and Presence of AICD device. Follow labs Hold Aldactone for now. CODE STATUS: FULL CODE VTE Prophylaxis: ON ELIQUIS Quality Stroke Does the patient have a stroke diagnosis?: No VTE Prior VTE?: No VTE Risk Level:: Medical - moderate - high VTE Device Contraindication: Treatment Not Indicated VTE Drug Contraindication: N/A - Med Ordered
[2025-04-11] MEDS: Amiodarone HCL 200 MG TABLET PO ×2 (12:08→21:54)
--- NOTE | 2025-04-11 13:43 | PHA.MEDREC ---
Addendum entered by Feliz Linares PharmD 04/11/25 14:30: reviewed, followed up with provider, pt was supposed to d/c ticagrelor and start clopidogrel when here last. Original Note: Pharmacy Consult ? Medication Reconciliation Pharmacy has completed the medication reconciliation. Spoke with pt and he confirmed his medications. Pt confirmed he was just admitted with 04/07-04/09 and stated he was told to stop the Entresto for now and stated he was told to stop taking the Baby Aspirin. Patient stated his Carvedilol 6.25mg tabs was decreased on the DC 04/09 and he was taking 1 tab (6.25mg) BID and now cuts the tabs in half and takes 1/2 tab BID now.
[2025-04-11] MEDS: 0.9 % Sodium Chloride Flush 3 ML SYRINGE IVFLUSH (18:12)
--- NOTE | 2025-04-11 20:22 | P.CONCA_ITS ---
History of Present Illness History of Present Illness Date of Service: 04/11/25 Requesting physician: Roney Renee Chief complaint: Aflutter CHF Narrative: 70 year gentleman with severe cardiomyopathy with EF 10-15% who recently left the hospital after admission for congestive heart failure. He is brought back for his PCI because he was complaining of chest pain and became very tired and short of breath. He was noticed to be in atrial flutter. He was sweaty and quite sick appearing. His blood pressure was okay but he clearly had evidence of hypoperfusion and he appeared nelli shock. During his last admission we cut the carvedilol to 3.125 mg b.i.d. because his blood pressure was apparently low at home. He previously had an atrial flutter episode and was referred to electrophysiology for ablation. He has yet to see the solution specialist. He is also on amiodarone 200 mg daily. [facility] Past Medical History Medical History ICD (implantable cardioverter-defibrillator) in place Atrial flutter by electrocardiogram Cardiomyopathy Anomalous coronary artery origin Atherosclerotic cardiovascular disease Heart failure with reduced ejection fraction HLD (hyperlipidemia) Acute on chronic combined systolic and diastolic CHF (congestive heart failure) Nonischemic cardiomyopathy CAD (coronary artery disease) Hypertension Pacemaker Family History Family History Father No problems noted. Mother No problems noted. Surgical History Surgical History Stented coronary artery S/P cardiac cath Hx of cardiac catheterization Social History Social History Household Members: None Household Members Other:: Dog Housing: Apartment Do you presently have visiting nurse or other home services: Yes (caregiver Marta.) Alcohol intake: current Alcohol intake frequency: a few times a month Alcohol type: beer Patient Tobacco Use Status: Never used Tobacco Smoked in Last 30 Days: No e-Cigarette/Vaping Use: Never Used Second Hand Smoke Exposure: No Use of substances other than those prescribed or required for medical reasons: No Substance Use Type: Marijuana Advance Directives: Yes Advance Directives on File: Yes Advance Directives Date on File: 10/02/24 Do you have a plan to hurt others: No Plan service: No Current occupational status: disabled Meds Allergies Allergy/AdvReac Type Severity Reaction Status Date / Time No Known Allergies Allergy Verified 04/11/25 09:09 Active Medications: Current Medications Acetaminophen (Acetaminophen 325 Mg Tablet) 650 mg PO Q6H PRN PRN Reason: Pain, Mild 1-3,fever,headache Amiodarone HCl (Amiodarone Hcl 200 Mg Tablet) 200 mg PO BID [facility] Last Admin: 04/11/25 12:08 Dose: 200 mg Apixaban (Apixaban 5 Mg Tablet) 5 mg PO BID [facility] Calcium Carbonate (Calcium Carbonate 750 Mg Tab.Chew) 750 mg PO Q4H PRN PRN Reason: Heartburn Carvedilol (Carvedilol 3.125 Mg Tablet) 3.125 mg PO BID [facility]; Protocol Clopidogrel Bisulfate (Clopidogrel Bisulfate 75 Mg Tablet) 75 mg PO DAILY [facility] Flumazenil (Flumazenil 0.5 Mg/5 Ml Vial) 0.2 mg IV ONCE PRN PRN Reason: benzo reversal Furosemide (Furosemide 40 Mg/4 Ml Vial) 40 mg IVPUSH DAILY [facility]; Protocol Last Admin: 04/11/25 12:08 Dose: 40 mg Magnesium Hydroxide (Milk Of Magnesia 30 Ml Oral.Susp) 30 ml PO DAILY PRN PRN Reason: Constipation Melatonin (Melatonin 3 Mg Tablet) 6 mg PO BEDTIME PRN PRN Reason: Insomnia Non-Formulary Medication (Ivabradine [Corlanor]) 5 mg PO BID [facility] Sodium Chloride (0.9 % Sodium Chloride Flush 3 Ml Syringe) 3 ml IVFLUSH QSHIFT [facility] Last Admin: 04/11/25 18:12 Dose: 3 ml Spironolactone (Spironolactone 25 Mg Tablet) 25 mg PO DAILY [facility]; Protocol Home Medications ?Medication ?Instructions ?Recorded ?Confirmed ?Last Taken ?Type ezetimibe 10 mg tablet 10 mg PO DAILY 08/18/2003/2404/11/25 History rosuvastatin 40 mg tablet 40 mg PO BEDTIME 08/18/2004/11/25 History empagliflozin 10 mg tablet 10 mg PO DAILY 02/27/2504/11/25 History (Jardiance) furosemide 80 mg tablet 80 mg PO DAILY 02/27/25 06/07/1804/11/25 History ivabradine 5 mg tablet (Corlanor) 5 mg PO BID 02/27/25 04/11/25 04/11/25 History acetaminophen 650 mg 650 mg PO TID PRN pain 04/1104/11/25 Unknown History tablet,extended release amiodarone 200 mg tablet 200 mg PO DAILY 04/11/2504/11/25 History carvedilol 6.25 mg tablet 3.125 mg PO BID 04/11/2504/11/25 History Physical Exam 2 Vital Signs: Vital Signs: Last Vital Signs Temp 98.5 F 04/11/25 19:17 Pulse 68 04/11/25 19:17 Resp 16 04/11/25 19:17 BP 114/78 04/11/25 19:17 Pulse Ox 96 04/11/25 19:17 O2 Del Method Room Air 04/11/25 19:17 O2 Flow Rate 2 04/11/25 15:50 Oxygen Flow Rate 0 04/11/25 10:49 BMI result Body Mass Index 28.0 GENERAL APPEARANCE: Very tired and weak appearing, sweating profusely. NECK: no carotid bruit, + jugular venous distention. HEART: no murmurs, regular rate and rhythm. Tachycardic. LUNGS: Bibasilar crackles. ABDOMEN: soft, nontender. EXTREMITIES: no edema. PERIPHERAL PULSES: equal. NEUROLOGIC: Very weak and tired appearing Objective Labs and Meds 04/11/25 09:09 04/11/25 09:09 Lab results: Laboratory Results - last 24 hr 04/11/25 04/11/25 09:09 10:48 WBC 9.5 RBC 5.35 Hgb 16.7 Hct 49.6 MCV 92.7 MCH 31.2 MCHC 33.7 RDW 12.9 Plt Count 251 D MPV 11.2 Immature Gran % (Auto) 0.2 Neut % (Auto) 73.5 H Lymph % (Auto) 18.5 L [place] % (Auto) 6.3 Eos % (Auto) 0.9 Baso % (Auto) 0.6 Lymph # (Auto) 1.8 Brown # (Auto) 0.6 Eos # (Auto) 0.1 Baso # (Auto) 0.1 Abs Immat Gran (auto) 0.02 Absolute Neuts (auto) 7.0 Absolute Nucleated RBC 0.000 Nucleated RBC % (auto) 0.0 PT 14.3 H D INR 1.2 H Sodium 140 Potassium 4.4 Chloride 102 Carbon Dioxide 26 Anion Gap 16 BUN 25 H Creatinine 1.41 H Estim Creat Clear Calc 48.7 Estimated GFR 50 Random Glucose 189 H Calcium 9.3 Magnesium 2.3 Total Bilirubin 1.1 H Direct Bilirubin 0.4 AST 33 ALT 45 H Alkaline Phosphatase 87 Troponin I High Sens 17.6 B-Natriuretic Peptide 1883 H Total Protein 7.9 Albumin 4.7 TSH 2.70 Urine Color Yellow Urine Appearance Cloudy Urine pH 5.5 Ur Specific [place] 1.010 Urine Protein Trace Urine Glucose (UA) >=1000 H Urine Ketones Negative Urine Blood Negative Urine Nitrite Negative Ur Leukocyte Esterase Negative Urine RBC 0-2 Urine WBC 0-5 Ur Squamous Epith Cells 0-2 Urine Bacteria None Seen Hyaline Casts 3-5 Imaging Radiologist's impression: Impressions Chest X-Ray 04/11/25 08:25 IMPRESSION: 1. Cardiomegaly with mild interstitial pulmonary edema. 2. Stable single lead AICD device. Electronically signed by: Aman Garcia MD 04/11/2025 09:44 AM EDT RP Assessment and Plan (1) Heart failure with reduced ejection fraction: Status: Acute (2) Atrial flutter: Status: Acute Plan [age] year gentleman who has severe cardiomyopathy and has a single lead ICD. He is presenting with chest pain and shortness of breath along with significant fatigue. He is noticed to be in atrial flutter. Very clearly he is not tolerating the atrial flutter. We referred him for electrophysiology assessment and he has yet to see the EP . I tried to overdrive pace him to see if I can break the atrial flutter but he only has a ventricular lead and no atrial lead so this approach did not work. We decided to sedate the patient in the ER and cardioverted him twice with 150 and 200 joules to sinus rhythm. His EKGs showed prolonged first-degree AV block. He was given 150 mg of amiodarone and our plan was to drip him but after learning that he takes amiodarone 200 mg daily at home we have left him to take 200 mg twice a day of amiodarone for now. Ivabradine we will be held for now. Continue carvedilol. IV diuretics for now because he looks overloaded. Hopefully in the next 24-48 hours he can go back home. Thank you for allowing me to participate in the care of your patient. Please feel free to contact me if you have any questions. Procedures Date of Service Date of Service: 04/11/25
[2025-04-11] MEDS: carvediloL 3.125 MG TABLET PO (21:53)
[2025-04-11] MEDS: Apixaban 5 MG TABLET PO (21:53)
[2025-04-12] VITALS (9 sets, daily range): BP systolic 112–140; BP diastolic 70–98; PULSE 54–90; RESP 15–18; TEMP 36–36.9; O2SAT 92–98; BMI 26.8
[2025-04-12] MEDS: 0.9 % Sodium Chloride Flush 3 ML SYRINGE IVFLUSH ×3 (01:16→14:30)
[2025-04-12 07:01] LABS: MANUAL DIFF FLAG NO
[2025-04-12 07:13] LABS: Basophils Absolute Auto 0.1 X10*3/uL (0.0-0.2); Basophils Percent Auto 0.6 % (0-2); Eosinophils Absolute Auto 0.1 X10*3/uL (0.0-0.4); Eosinophils Percent Auto 0.7 % (0-4); Hematocrit 43.1 % (42.0-52.0); Hemoglobin 14.9 g/dl (14.0-18.0); Imm Gran Abs Auto 0.04 X10*3/uL (0.00-0.03); Imm Gran Pct Auto 0.4 % (0.0-0.4); Lymphocytes Absolute Auto 1.9 X10*3/uL (1.2-4.9); Lymphocytes Percent Auto 19.9 % (20-40); Mean Corpuscular HGB Conc 34.6 g/dl (31.0-36.0); Mean Corpuscular Hemoglobin 30.7 pg (27.0-33.0); Mean Corpuscular Volume 88.7 fL (80.0-98.0); Mean Platelet Volume 11.2 fL (9.4-12.4); Monocytes Absolute Auto 0.8 X10*3/uL (0.1-1.2); Monocytes Percent Auto 7.9 % (2-11); Neutrophils Absolute Auto 6.7 x10*3/uL (2.0-8.3); Neutrophils Percent Auto 70.5 % (45-73); Platelet Count 202 X10*3/uL (160-400); Red Blood Count 4.86 X10*6/uL (4.60-5.80); Red Cell Distribution Width 12.7 % (11.0-16.0); White Blood Count 9.6 X10*3/uL (4.8-10.8)
[2025-04-12 07:32] LABS: Alanine Aminotransferase 42 U/L (0-40); Albumin Level 4.2 g/dL (3.5-5.0); Alkaline Phosphatase 77 U/L (39-117); Anion Gap 14 (12-20); Aspartate Amino Transferase 34 U/L (5-37); Bilirubin Total 1.2 mg/dL (0.0-1.0); Blood Urea Nitrogen 20 mg/dL (9-16); Calcium 8.9 mg/dL (8.4-10.2); Carbon Dioxide 26 mmol/L (22-29); Chloride 101 mmol/L (96-108); Creatinine Clr Calc Pharmacy 68.3; Estimated Glomerular Filt Rate > 60; Glucose Random 97 mg/dL (60-115); Potassium 3.8 mmol/L (3.3-5.1); Sodium 137 mmol/L (135-145)
[2025-04-12] MEDS: Spironolactone 25 MG TABLET PO (08:30)
[2025-04-12] MEDS: Apixaban 5 MG TABLET PO (08:30)
[2025-04-12] MEDS: Amiodarone HCL 200 MG TABLET PO (08:30)
[2025-04-12] MEDS: Furosemide 40 MG/4 ML VIAL IVPUSH ×2 (08:30→15:27)
[2025-04-12] MEDS: Clopidogrel Bisulfate 75 MG TABLET PO (08:30)
[2025-04-12] MEDS: carvediloL 3.125 MG TABLET PO (08:30)
--- NOTE | 2025-04-12 11:44 | MHC.CM.PN ---
CM MET WITH PT WITH A DOG WALKER PT LIVES ALONE AND HAS 19 YARD MANAGER HOURS PER WEEK HE USES A CANE PRN HCP ON FILE PCP: NIRALI BRADLEY IMM DELIVERED DCP HOME RESUME YARD MANAGER VIA PRIVATE TRANSPORT
--- NOTE | 2025-04-12 11:58 | HO.PM.IMPN ---
Subjective Subjective Date of Service: 04/12/25 Interval History: seen and evaluated feels better making fair amount of urine rhythm in sinus no other events Review of Systems Review of Systems: Yes all other systems are reviewed and are negative Physical Exam Vital Signs: Vital Signs: Last Vital Signs Temp 96.8 F 04/12/25 10:59 Pulse 80 04/12/25 10:59 Resp 15 04/12/25 10:59 BP 125/92 H 04/12/25 10:59 Pulse Ox 96 04/12/25 10:59 O2 Del Method Room Air 04/12/25 07:04 O2 Flow Rate 2 04/11/25 15:50 Oxygen Flow Rate 0 04/11/25 10:49 BMI result Body Mass Index 26.8 Const: Other: Constitutional : interactive, not in distress Cardiovascular : no JVP, no lower extremity edema, in RRR Respiratory : bilateral chest movement, not in resp distress Gastrointestinal: soft, lax, Non tender Skin : Warm, Dry Neurological : Alert & oriented , No focal deficit Objective Data Active Medications Acetaminophen (Acetaminophen 325 Mg Tablet) 650 mg PO Q6H PRN PRN Reason: Pain, Mild 1-3,fever,headache Amiodarone HCl (Amiodarone Hcl 200 Mg Tablet) 200 mg PO BID [facility] Last Admin: 04/12/25 08:30 Dose: 200 mg Documented By: ASH Apixaban (Apixaban 5 Mg Tablet) 5 mg PO BID [facility] Last Admin: 04/12/25 08:30 Dose: 5 mg Documented By: ASH Calcium Carbonate (Calcium Carbonate 750 Mg Tab.Chew) 750 mg PO Q4H PRN PRN Reason: Heartburn Carvedilol (Carvedilol 3.125 Mg Tablet) 3.125 mg PO BID [facility]; Protocol Last Admin: 04/12/25 08:30 Dose: 3.125 mg Documented By: ASH Clopidogrel Bisulfate (Clopidogrel Bisulfate 75 Mg Tablet) 75 mg PO DAILY [facility] Last Admin: 04/12/25 08:30 Dose: 75 mg Documented By: ASH Flumazenil (Flumazenil 0.5 Mg/5 Ml Vial) 0.2 mg IV ONCE PRN PRN Reason: benzo reversal Furosemide (Furosemide 40 Mg/4 Ml Vial) 40 mg IVPUSH DAILY [facility]; Protocol Last Admin: 04/12/25 08:30 Dose: 40 mg Documented By: ASH Magnesium Hydroxide (Milk Of Magnesia 30 Ml Oral.Susp) 30 ml PO DAILY PRN PRN Reason: Constipation Melatonin (Melatonin 3 Mg Tablet) 6 mg PO BEDTIME PRN PRN Reason: Insomnia Sodium Chloride (0.9 % Sodium Chloride Flush 3 Ml Syringe) 3 ml IVFLUSH QSHIFT [facility] Last Admin: 04/12/25 08:30 Dose: 3 ml Documented By: ASH Spironolactone (Spironolactone 25 Mg Tablet) 25 mg PO DAILY [facility]; Protocol Last Admin: 04/12/25 08:30 Dose: 25 mg Documented By: ASH Labs 04/12/25 06:35 04/12/25 06:35 Labs: Laboratory Results - last 24 hr 04/12/25 06:35 MCV 88.7 MCH 30.7 MCHC 34.6 RDW 12.7 Plt Count 202 MPV 11.2 Immature Gran % (Auto) 0.4 Neut % (Auto) 70.5 Lymph % (Auto) 19.9 L [place] % (Auto) 7.9 Eos % (Auto) 0.7 Baso % (Auto) 0.6 Lymph # (Auto) 1.9 [place] # (Auto) 0.8 Eos # (Auto) 0.1 Baso # (Auto) 0.1 Abs Immat Gran (auto) 0.04 H Absolute Neuts (auto) 6.7 Absolute Nucleated RBC 0.000 Nucleated RBC % (auto) 0.0 Anion Gap 14 Estim Creat Clear Calc 68.3 Estimated GFR > 60 Random Glucose 97 Calcium 8.9 Total Bilirubin 1.2 H AST 34 ALT 42 H Alkaline Phosphatase 77 Total Protein 7.0 Albumin 4.2 Assessment and Plan (1) Hypertension: Status: Acute (2) Heart failure with reduced ejection fraction: Status: Acute (3) Nonischemic cardiomyopathy: Status: Acute (4) CHF exacerbation: Status: Acute (5) Acute decompensated heart failure: Status: Acute (6) Atrial flutter with rapid ventricular response: Status: Acute Plan 70-year-old male with a complex cardiovascular history including hypertension, SVT, heart failure with reduced EF of 10-15% on recent echo, a ICD, ventricular arrhythmia, on amiodarone CAD with RCA and LAD stent that was placed in October 2024 presented to the ED with shortness of breath, increased work of breathing, chest pain and diaphoresis. His AICD was interrogated and he developed a flutter with RVR which failed transcutaneous pacing. Patient underwent a cardioversion x2 and converted to normal sinus rhythm. Patient will be admitted to telemetry unit for further monitoring and treatment. Medication reconciliation not complete at time of visit. Aflutter with RVR/AICD/HTN/CAD At presentation was in flutter with RVR, Failed transcutaneous pacing. Required cardioversion times 2 and converted to normal sinus rhythm. He was given a dose of amiodarone IV 150 mgs over 10 minutes Cardiology following Continue Amiodarone 200 b.i.d. continue carvedilol 3.125 b.i.d Hold Ivabradine Continue Eliquis ACS ruled out, Troponins negative and EKG with no Ischemic changes. 10/25/2024 cardiac catheterization patent proximal RCA stent, proximal LAD stenosis with PCI and YOVANA placed. Cardiology following Monitor on telemetry Acute on chronic decompensated heart failure Patients BNP elevated to 1883, Chronically elevated, most recent BNP on DC 1302. Chest Xray revealed mild interstitial edema Continue Lasix IV 40 mg Entresto on HOLD due to orthostatic hypotension from recent hospitalization. Recent ECHO on 04/09/2025 revealed LVeF of 10-15% Follow labs Hold Aldactone for now CODE STATUS: FULL CODE VTE Prophylaxis: ON ELIQUIS The patient will need overnight hospital stay for IV lasix and cardiac monitoring Quality Stroke Does the patient have a stroke diagnosis?: No VTE Prior VTE?: No VTE Risk Level:: Medical - moderate - high VTE Device Contraindication: Treatment Not Indicated VTE Drug Contraindication: N/A - Med Ordered
--- NOTE | 2025-04-12 12:38 | P.PNCA_ITS ---
Subjective Subjective Date of Service: 04/12/25 Interval history: Seen examined at bedside twice a day. Earlier he was seen and was doing fine our plan was to discharge him home. Later I was called in because he went back into atrial flutter and was sweaty and complaining of chest pain and shortness of breath. Physical Exam Vital Signs: Last Vital Signs Temp 96.8 F 04/12/25 10:59 Pulse 80 04/12/25 10:59 Resp 15 04/12/25 10:59 BP 125/92 H 04/12/25 10:59 Pulse Ox 96 04/12/25 10:59 O2 Del Method Room Air 04/12/25 07:04 O2 Flow Rate 2 04/11/25 15:50 Oxygen Flow Rate 0 04/11/25 10:49 BMI result Body Mass Index 26.8 GENERAL APPEARANCE: Very tired and weak appearing, sweating profusely. NECK: no carotid bruit, + jugular venous distention. HEART: no murmurs, regular rate and rhythm. LUNGS: Bibasilar crackles. ABDOMEN: soft, nontender. EXTREMITIES: no edema. PERIPHERAL PULSES: equal. NEUROLOGIC: Very weak and tired appearing Objective Labs and Meds 04/12/25 14:17 04/12/25 14:17 Lab results: Laboratory Results - last 24 hr 04/12/25 06:35 WBC 9.6 RBC 4.86 Hgb 14.9 Hct 43.1 MCV 88.7 MCH 30.7 MCHC 34.6 RDW 12.7 Plt Count 202 MPV 11.2 Immature Gran % (Auto) 0.4 Neut % (Auto) 70.5 Lymph % (Auto) 19.9 L [place] % (Auto) 7.9 Eos % (Auto) 0.7 Baso % (Auto) 0.6 Lymph # (Auto) 1.9 [place] # (Auto) 0.8 Eos # (Auto) 0.1 Baso # (Auto) 0.1 Abs Immat Gran (auto) 0.04 H Absolute Neuts (auto) 6.7 Absolute Nucleated RBC 0.000 Nucleated RBC % (auto) 0.0 Sodium 137 Potassium 3.8 Chloride 101 Carbon Dioxide 26 Anion Gap 14 BUN 20 H Creatinine 0.92 Estim Creat Clear Calc 68.3 Estimated GFR > 60 Random Glucose 97 Calcium 8.9 Total Bilirubin 1.2 H AST 34 ALT 42 H Alkaline Phosphatase 77 Total Protein 7.0 Albumin 4.2 Progress Note: A&P Assessment and plan (1) Heart failure with reduced ejection fraction: Status: Acute (2) Atrial flutter: Status: Acute Plan 70-year-old gentleman who is presenting for congestive heart failure and atrial flutter. He previously had atrial flutter diagnosed and was referred for ablation. He was cardioverted yesterday in the emergency department. Today again he developed atrial flutter episode. He was sweaty and diaphoretic. Apparently was given Cardizem bolus by Medicine team and later EKGs started showing sinus rhythm again. He was still quite diaphoretic and sick at that time I reassessed him. He has JVD and crackles. We gave him 40 mg of Lasix. EKG was repeated which is confirmed that he is back in sinus rhythm with long first-degree AV block and right bundle/left posterior fascicular block. I think he needs inpatient ablation and I am going to arrange transfer to CCU Service at [facility] for close monitoring and potential ablation early next week. Continue medications as before. Avoid any IV beta-deyanira or Cardizem. Thank you for allowing me to participate in the care of your patient. Please feel free to contact me if you have any questions. Time Spent With Patient Time: Total time managing care of this patient today ____ minutes. Progress Note: Quality Stroke Does the patient have a stroke diagnosis?: No Procedures Date of Service Date of Service: 04/12/25
--- NOTE | 2025-04-12 13:35 | ECG_ITS ---
Test Reason : fatigue Blood Pressure : */* mmHG Vent. Rate : 103 BPM Atrial Rate : * BPM P-R Int : * ms QRS Dur : 186 ms QT Int : 442 ms P-R-T Axes : * 143 -23 degrees QTcB Int : 579 ms Wide QRS rhythm with Fusion complexes Right bundle branch block Septal infarct , age undetermined Lateral infarct , age undetermined T wave abnormality, consider inferior ischemia Abnormal ECG When compared with ECG of 11-Apr-2025 10:24, Wide QRS rhythm has replaced Sinus rhythm Referred By: Justin James Electronically Signed By: Zuhair Hernandes
[2025-04-12 13:48] LABS: Glucose, Whole Blood 153 mg/dL (60-115)
[2025-04-12] MEDS: dilTIAZem HCL 50 MG/10 ML VIAL 10 MG IVPUSH (13:54)
[2025-04-12] MEDS: Nitroglycerin 2 % Oint 1 GM Packet 1 INCH TRANSDERMA (13:57)
[2025-04-12] MEDS: Morphine Sulfate 2 MG/ML CARTRIDGE 1 MG IVPUSH (13:58)
[2025-04-12 14:27] LABS: Hematocrit 49.2 % (42.0-52.0); Hemoglobin 17.4 g/dl (14.0-18.0); Mean Corpuscular HGB Conc 35.4 g/dl (31.0-36.0); Mean Corpuscular Hemoglobin 31.4 pg (27.0-33.0); Mean Corpuscular Volume 88.8 fL (80.0-98.0); Mean Platelet Volume 11.1 fL (9.4-12.4); Platelet Count 269 X10*3/uL (160-400); Red Blood Count 5.54 X10*6/uL (4.60-5.80); Red Cell Distribution Width 12.8 % (11.0-16.0); White Blood Count 10.2 X10*3/uL (4.8-10.8)
[2025-04-12 14:41] LABS: Anion Gap 18 (12-20); Blood Urea Nitrogen 22 mg/dL (9-16); Calcium 9.4 mg/dL (8.4-10.2); Carbon Dioxide 22 mmol/L (22-29); Chloride 99 mmol/L (96-108); Creatinine Clr Calc Pharmacy 53.3; Estimated Glomerular Filt Rate > 60; Glucose Random 220 mg/dL (60-115); Potassium 4.2 mmol/L (3.3-5.1); Sodium 135 mmol/L (135-145)
[2025-04-12 14:51] LABS: Troponin-I High Sensitivity 22.6 ng/L (<3.5-35.0)
--- NOTE | 2025-04-12 15:12 | PC.NURSE ---
Pt's caregiver called nursing staff to his room d/t pt c/o feeling fatigued , diaphoretic. CG reported that pt ate lunch , went to the bathroom and when came back to his bed became severe diaphoretic, . Pt alert and oriented , moaning I dont' feel good , denied chest pain , c/o abdominal pain # 5 mild nausea no vomiting. manager customs SR 1degree AV block BBB and occ PVC'c . GILL TENDER called 13:36 TERAM : DR James , DR Modi , DR Hernandes , Noreen CORRALES , manager cancer Jus, charge nurse Danika , RACKMAN Areli ,MELINA Vargas and primary RN Juliana . EKG done , meds: Morphine 1 mg IV , diltiazem 10 mg IV , nitro 2% 1 inch paste . oxygen 4 liter via NC , Pt reported I feel better no pain , no sob , still diaphoretic , Plan : pt will be transfered to the higher level of care to [facility] for EP
--- NOTE | 2025-04-12 15:25 | ECG_ITS ---
Test Reason : arrythmia Blood Pressure : */* mmHG Vent. Rate : 86 BPM Atrial Rate : 86 BPM P-R Int : 262 ms QRS Dur : 206 ms QT Int : 554 ms P-R-T Axes : 87 144 7 degrees QTcB Int : 662 ms Sinus rhythm with 1st degree A-V block Right bundle branch block Left posterior fascicular block Septal infarct (cited on or before 11-Apr-2025) T wave abnormality, consider inferior ischemia Abnormal ECG When compared to the previous EKG of Sinus rhythm present now Referred By: Zuhair Hernandes Electronically Signed By: Zuhair Hernandes
--- NOTE | 2025-04-12 15:44 | PC.NURSE ---
Nitroglcerin paste removed from the pt's chest per DR Hernandes order , Medicated with lasix 40 mg IV per cardio order , pt alert and oriented , LS crackles , no cp ,no sob ,mild dialphoresis , pt accepted to [facility] CCU , waiting for the bed
--- NOTE | 2025-04-12 16:16 | PC.NURSE ---
Report called to SAMUEL Pena at [facility]
--- NOTE | 2025-04-12 16:17 | PM.DS ---
DS: Providers Provider Date of Service: 04/12/25 Date of admission: 04/11/25 10:58 Date of discharge: 04/12/25 Primary care physician: Imelda Sepulveda MD Consults: 04/11/25 12:04 Consult to Cardiology Routine Consulting Provider: [facility] Reason for consultation: A flutter, status post cardioversion, decompensated heart failure Has provider been notified: Yes DS: Diagnosis Discharge Diagnosis (1) Heart failure with reduced ejection fraction: Status: Acute (2) Atrial flutter: Status: Acute (3) Nonischemic cardiomyopathy: Status: Acute (4) Acute decompensated heart failure: Status: Acute DS: Summary Hospital Course Hospital Course: Admission note HPI 70-year-old Nigerien-speaking male who is here with his RING ATTACHER we will past medical history of a flutter, CHF with reduced EF of 10-15%, , CAD, hyperlipidemia, ventricular arrhythmia on amiodarone, ICD, presented to the ED this morning due to chest pain and shortness of breath. Per his RING ATTACHER he was recently discharged from the hospital, when she saw him yesterday, he was ambulatory with cane in his usual state of health, this morning RING ATTACHER went and found him short of breath diaphoretic and dizzy with increased work of breathing and he was brought to the ED. Patients pacemaker was interrogated by Cardiology and he developed Abflutter with RVR without evidence of ST elevations or depressions or T-wave abnormalities. His initial troponin was within normal limits is felt to be less likely due to ACS. Chest x-ray revealed cardiomegaly with pulmonary edema without evidence of pleural effusion, no leukocytosis, his BNP was elevated at 1883, and his creatinine was elevated at 1.4. No leukocytosis, TSH WNL, Mag WNL. He was initially given 40 mg of Lasix for fluid overload and subsequently got an additional 150 mg over 10 minutes recommended by Cardiology. They attempted transcutaneous pacing without affect. Patient was subsequently given conscious sedation and an electrical cardioversion was performed. Patient required 2 shocks before returning to normal sinus rhythm and he tolerated this well. On exam he reports that he feels better his heart rate is in the 70s, his blood pressure is stable. These saturating 90% on 2 L. denies any shortness of breath, or chest pain. Reports that he is feeling better. He is admitted to telemetry unit for further management of acute on chronic heart failure, a flutter. Hospital course The patient was admitted to the hospital for evaluation of: # Aflutter with RVR, symptomatic Afib PResented to ED as he became very tired and short of breath. He was noticed to be in atrial flutter. He was sweaty and sick appearing. blood pressure was okay but he clearly had evidence of hypoperfusion and he appeared nelli shock. Required cardioversion and converted to normal sinus rhythm. he was given a dose of amiodarone IV 150 mg and kept on PO Amiodarone 200 mg bid (his baseline home med). continue carvedilol 3.125 b.i.d. Held Ivabradine. Continue Eliquis. EKG was repeated which is confirmed that he is back in sinus rhythm with long first-degree AV block and right bundle/left posterior fascicular block. He had another episode of atrial flutter with rate of 100-110 and became again symptomatic. clammy, sweating with reported chest pain. BP was stable at that point of 150/90. responded to IV Cardizem one time dose. Cardiology recommended that he needs inpatient ablation and I am going to arrange transfer to CCU Service at [facility] for close monitoring and potential ablation early next week. # Hx of CAD, CMP w reduced EF of 10-15% 10/25/2024 cardiac catheterization patent proximal RCA stent, proximal LAD stenosis with PCI and YOVANA p laced. on Eliquis and Plavix. # Acute on chronic decompensated heart failure Patients BNP elevated to 1883, Chronically elevated, most recent BNP on DC 1302. Chest Xray revealed mild interstitial edema. placed on Lasix IV 40 mg Entresto was discontinued due to orthostatic hypotension from recent hospitalization. Recent ECHO on 04/09/2025 revealed LVeF of 10-15%. To hold Aldactone for now. Plan to transfer to [facility] CCU for further work up and possible EP intervention. Time Attestation Discharge Coordination Time (in mins): 42 Quality: Safe Use of Opioids Does Pt have an Active Cancer Diagnosis on the Problem List?: No Quality: Stroke Does the patient have a stroke diagnosis?: No Physical Exam Vital Signs: Vital Signs: Last Vital Signs Temp 96.8 F 04/12/25 15:11 Pulse 84 04/12/25 15:11 Resp 18 04/12/25 15:11 BP 125/89 04/12/25 15:11 Pulse Ox 93 04/12/25 15:11 O2 Del Method Nasal Cannula 04/12/25 15:11 O2 Flow Rate 4 04/12/25 15:11 Oxygen Flow Rate 4 04/12/25 14:33 BMI result Body Mass Index 26.8 Const: Other: Constitutional : interactive, not in distress Cardiovascular : no JVP, no lower extremity edema, in RRR Respiratory : bilateral chest movement, not in resp distress Gastrointestinal: soft, lax, Non tender Skin : Warm, Dry Neurological : Alert & oriented , No focal deficit DS: Data Data Completed and Pending Labs on day of discharge: Laboratory Results - last 24 hr 04/12/25 04/12/25 04/12/25 06:35 13:36 14:17 WBC 9.6 10.2 RBC 4.86 5.54 Hgb 14.9 17.4 Hct 43.1 49.2 MCV 88.7 88.8 MCH 30.7 31.4 MCHC 34.6 35.4 RDW 12.7 12.8 Plt Count 202 269 D MPV 11.2 11.1 Immature Gran % (Auto) 0.4 Neut % (Auto) 70.5 Lymph % (Auto) 19.9 L [place] % (Auto) 7.9 Eos % (Auto) 0.7 Baso % (Auto) 0.6 Lymph # (Auto) 1.9 [place] # (Auto) 0.8 Eos # (Auto) 0.1 Baso # (Auto) 0.1 Abs Immat Gran (auto) 0.04 H Absolute Neuts (auto) 6.7 Absolute Nucleated RBC 0.000 0.000 Nucleated RBC % (auto) 0.0 0.0 Sodium 137 135 Potassium 3.8 4.2 Chloride 101 99 Carbon Dioxide 26 22 Anion Gap 14 18 BUN 20 H 22 H Creatinine 0.92 1.18 Estim Creat Clear Calc 68.3 53.3 Estimated GFR > 60 > 60 POC Glucose 153 H Random Glucose 97 220 H Calcium 8.9 9.4 Total Bilirubin 1.2 H AST 34 ALT 42 H Alkaline Phosphatase 77 Troponin I High Sens 22.6 Total Protein 7.0 Albumin 4.2 Imaging Chest x-ray: Radiologist's impression: ITS Impressions Chest X-Ray 04/11/25 08:25 IMPRESSION: 1. Cardiomegaly with mild interstitial pulmonary edema. 2. Stable single lead AICD device. Electronically signed by: Aman Garcia MD 04/11/2025 09:44 AM EDT Discharge Plan Discharge Anticipated Discharge Date/Time: 04/12/25 16:13 Patient Disposition: Xfer Acute Care Hospital Discharge Diagnosis: Heart failure with reduced ejection fraction Atrial flutter Referrals: Imelda Sepulveda MD [Primary Care Provider, Internal Medicine] - 1 Week Discharge Medications: Continued spironolactone 25 mg tablet 25 mg PO DAILY 90 Days Qty: 90 3RF furosemide 80 mg tablet 80 mg PO DAILY Jardiance 10 mg tablet 10 mg PO DAILY amiodarone 200 mg tablet 200 mg PO DAILY acetaminophen 650 mg tablet extended release 650 mg PO TID PRN (Reason: pain) carvedilol 6.25 mg tablet 3.125 mg PO BID rosuvastatin 40 mg tablet 40 mg PO BEDTIME ezetimibe 10 mg tablet 10 mg PO DAILY Eliquis 5 mg tablet 5 mg PO BID Qty: 60 5RF Rx Instructions: New clopidogrel [Plavix] 75 mg tablet 75 mg PO DAILY Qty: 30 3RF Rx Instructions: ON FIRST DAY ONLY - Take 4 tablets, then take 1 tablet daily Held ivabradine [Corlanor] 5 mg tablet 5 mg PO BID Hold Instructions: Transfer Discharge Orders: Discharge Order (Routine); Ordered 04/12/25 Ordered By: Justin James Diet: Low salt diet Activity on Discharge: As tolerated Stand Alone Forms: Patient Portal Discharge page Print Language: Other Care Plan Goals: Transfer to [facility] for further work up and management. Health Concerns: Heart failure symptomatic Atrial flutter Plan of Treatment: Transfer Assessment: as above
== END 2025-04-12 17:08 | disposition short-term general hospital (02) | DRG 308 ==
LOC: HO.ED 11:16 → HO.EDOVER 11:22 → HO.IMC 04-12 02:12
PROVIDERS: Nurse Practitioner Family; Admitting Provider Physician Assistant Medical; Emergency Provider Emergency Medicine; PCP Internal Medicine; Visit Provider Student in an Organized Health Care Education/Training Program
DX: I48.92 Unspecified atrial flutter (principal); I50.23 Acute on chronic systolic (congestive) heart failure; I44.0 Atrioventricular block, first degree; I25.10 Atherosclerotic heart disease of native coronary artery without angina pectoris; I11.0 Hypertensive heart disease with heart failure; I42.8 Other cardiomyopathies; Z45.02 Encounter for adjustment and management of automatic implantable cardiac defibrillator; Z79.01 Long term (current) use of anticoagulants; Z79.02 Long term (current) use of antithrombotics/antiplatelets; Z79.899 Other long term (current) drug therapy
CPT/HCPCS: 36415; 71045; 80048; 80053; 80076; 81001; 81003; 82947; 83735; 83880; 84443; 84484; 85025; 85027; 85610; 93005; 97162; 99285; J0283; J1938; J2270; J2704; J3010

== ENCOUNTER → 2025-04-11 09:20 | Outpatient (BNV) | payer OTHER, SELFPAY | PROVIDERS: Emergency Provider Emergency Medicine; PCP Internal Medicine; Visit Provider Radiology Diagnostic Radiology | DX: I51.7 Cardiomegaly (principal) | CPT/HCPCS: 71045 ==

== ENCOUNTER 2025-04-11 10:58 | Outpatient (BNV) | payer OTHER, SELFPAY | END 2025-04-12 13:35 | PROVIDERS: Admitting Provider Physician Assistant Medical; Emergency Provider Emergency Medicine; PCP Internal Medicine; Visit Provider Internal Medicine Cardiovascular Disease | DX: I45.10 Unspecified right bundle-branch block (principal); I44.0 Atrioventricular block, first degree; I44.5 Left posterior fascicular block | CPT/HCPCS: 93010 ==

== ENCOUNTER → 2025-04-11 10:58 | Outpatient (BNV) | payer OTHER, SELFPAY | PROVIDERS: Admitting Provider Physician Assistant Medical; Emergency Provider Emergency Medicine; PCP Internal Medicine; Visit Provider Internal Medicine Cardiovascular Disease | DX: I50.20 Unspecified systolic (congestive) heart failure (principal); I48.92 Unspecified atrial flutter | CPT/HCPCS: 99232 ==

== ENCOUNTER → 2025-04-11 10:58 | Outpatient (BNV) | payer OTHER, SELFPAY | PROVIDERS: Admitting Provider Physician Assistant Medical; Emergency Provider Emergency Medicine; PCP Internal Medicine; Visit Provider Nurse Practitioner Family | DX: I10 Essential (primary) hypertension (principal); I50.20 Unspecified systolic (congestive) heart failure; I42.8 Other cardiomyopathies; I50.9 Heart failure, unspecified; I48.92 Unspecified atrial flutter | CPT/HCPCS: 99223; 99239; 99499 ==

== ENCOUNTER 2025-04-29 09:10 | Outpatient (REF) | payer OTHER, SELFPAY ==
--- OUTSIDE RECORDS SUMMARY | 2025-04-29 09:37 | XMS_ITS | Patient Health Record ---
Author Organization [facility] Address [address] [place] [address] Care Team Providers Care Credit Collections Manager Name Role Phone Imelda Sepulveda Primary Care Provider Unavailab Fabio Amin Unavailable [phone] Reason For Referral No Information Medications Medication SIG (Take, Route, Frequency, Duration) Notes Start Date End Date Status Spironolactone 25 MG TAKE 1 TABLET BY MO UTH EVERY DAY Oral; Duration: 90 Days Active Corlanor 5 MG TAKE 1 TABLET BY ANUJ TH TWICE DAILY Oral; Duration: 30 Days Active Furosemide 80 MG TAKE 1 TABLET BY ANUJ TH EVERY DAY Oral; Duration: 90 Days Active Entresto 24-26 MG TAKE 1 TABLET BY ANUJ TH TWICE DAILY Oral; Duration: 90 Days Active Jardiance 10 MG TAKE 1 TABLET BY ANUJ TH EVERY DAY Oral; Duration: 30 Days Active Carvedilol 12.5 MG TAKE [...] No Encounters Encounter Location Date Provider Diagnosis [facility] [address] [place] [address] [facility] [address] [place] [address] [facility]/15/[facility]24 Fabio Silevrio Plan Of Treatment No Information Insurance Providers Payer Name Payer Address Payer Phone Subscriber Number Group Number Insured Name Patient Relationship to Insured Coverage Start Date Coverage End Date [facility] [employer] Claims [address] [place] [id number] Trenton Dasilva Self - patient is the insured Medical (General) History Medical History History ICD Code Heart disease High Blood Pressure Stroke Surgical History Surgery Date(Month/Year) cardiac pacemeker
[2025-04-29 09:58] LABS: Hematocrit 43.1 % (42.0-52.0); Hemoglobin 14.6 g/dl (14.0-18.0); Imm Gran Abs Auto 0.03 X10*3/uL (0.00-0.03); Imm Gran Pct Auto 0.4 % (0.0-0.4); Lymphocytes Absolute Auto 1.3 X10*3/uL (1.2-4.9); MANUAL DIFF FLAG NO; Mean Corpuscular HGB Conc 33.9 g/dl (31.0-36.0); Mean Corpuscular Hemoglobin 30.6 pg (27.0-33.0); Mean Corpuscular Volume 90.4 fL (80.0-98.0); NRBC Abs Auto 0.000 X10*3/uL (0.0-0.012); NRBC Pct Auto 0.0 /100WBC (0.0-0.2); Platelet Count 243 X10*3/uL (160-400); Red Blood Count 4.77 X10*6/uL (4.60-5.80); White Blood Count 7.9 X10*3/uL (4.8-10.8)
[2025-04-29 10:30] LABS: Alanine Aminotransferase 27 U/L (0-40); Albumin Level 4.4 g/dL (3.5-5.0); Alkaline Phosphatase 67 U/L (39-117); Anion Gap 11 (12-20); Aspartate Amino Transferase 25 U/L (5-37); Blood Urea Nitrogen 15 mg/dL (9-16); Calcium 8.9 mg/dL (8.4-10.2); Carbon Dioxide 28 mmol/L (22-29); Chloride 102 mmol/L (96-108); Cholesterol 100 mg/dL (<200); Estimated Glomerular Filt Rate > 60; HDL Cholesterol 38 mg/dL (>40); Potassium 4.3 mmol/L (3.3-5.1); Sodium 137 mmol/L (135-145); Total Protein 7.2 g/dL (6.5-8.0); Triglycerides 55 mg/dL (<150)
== END 2025-04-29 09:11 | disposition home or self-care (01) ==
LOC: HO.LAB 09:10
PROVIDERS: PCP Internal Medicine; Visit Provider Internal Medicine
DX: I25.5 Ischemic cardiomyopathy (principal); E78.00 Pure hypercholesterolemia, unspecified; L60.0 Ingrowing nail; Z95.0 Presence of cardiac pacemaker; Z12.5 Encounter for screening for malignant neoplasm of prostate
CPT/HCPCS: 36415; 80053; 80061; 84153; 85025

== ENCOUNTER 2025-05-13 12:55 | Outpatient (AMB) | payer OTHER, SELFPAY ==
--- OUTSIDE RECORDS SUMMARY | 2025-05-13 13:36 | XMS_ITS | Patient Health Record ---
Author Organization [facility] Address [address] [place] [address] Care Team Providers Care Cook Apprentice Name Role Phone Imelda Sepulveda Primary Care Provider Unavailab Fabio Amin Unavailable [phone] Reason For Referral No Information Medications Medication [...] Location Date Provider [facility] [address] [place] [address] [facility] [place] [facility] [address] [place] [address] 11/15/2024 Fabio Silverio Plan Of Treatment No Information Insurance Providers Payer Name Payer Address Payer Phone Subscriber Number Group Number Insured Name Patient Relationship to Insured Coverage Start Date Coverage End Date [facility] SCO Claims [address] [place] [id number] [place] Dasilva Self - patient is the insured Medical (General) History Medical History History ICD Code Heart disease High Blood Pressure Stroke Surgical History Surgery Date(Month/Year) cardiac pacemeker
[2025-05-13 13:48] VITALS: BP 90/62; PULSE 71; BMI 27.5
--- NOTE | 2025-05-13 13:48 | A.OFFVIS_ITS ---
Vital Signs 05/13/25 13:48 Height 5 ft 6 in Weight 170 lb 3.15 oz BMI 27.5 BP 90/62 Blood Pressure Location Lt brachial Position Sitting Pulse 71 Pulse Source Pulse Oximeter Intake Visit Reasons[place] [facility] [place] Commercial Installer: Commercial Installer Present Allergies No Known Allergies Allergy (Verified 04/11/25 09:09) Medication List - Last Reconciled 05/13/25 by FRAN Welsh acetaminophen ER 650 mg PO TID PRN apixaban (Eliquis) 5 mg PO BID carvedilol 6.25 mg PO BID clopidogrel (Plavix) 75 mg PO DAILY empagliflozin (Jardiance) 10 mg PO DAILY ezetimibe 10 mg PO DAILY furosemide 40 mg PO DAILY nitroglycerin 0.4 mg sublingual Q5M PRN rosuvastatin 40 mg PO BEDTIME sacubitril-valsartan 24-26 mg (Entresto) 1 tab PO BID spironolactone 25 mg PO DAILY 90 days HPI HPI [facility] [place] Follow up: Details: Trenton is a 70-year-old male with past medical history of hypertension, SVT, heart failure with reduced EF, nonischemic cardiomyopathy, ICD, ventricular arrhythmia and on amiodarone, CAD with RCA and LAD stent, who was recently admitted to [facility] with shortness of breath and chest discomfort. His EKG was again found to have atrial flutter with RVR. He did bedside cardioversion he was treated with amiodarone. During his admission he did have recurrent atrial flutter, symptomatic. He was transferred to [facility] where he underwent inpatient ablation of this rhythm. Most recent echo 04/09/2025 showed EF 10-15%. He now presents for follow-up. Today he reports he has been feeling better since his last hospital discharge. He has some shortness of breath with exertion but overall improved. No PND, orthopnea or edema. No chest discomfort at rest or with activity. No lightheadedness, presyncope, syncope. No bleeding issues with Eliquis use. Taking all meds as directed. He did see Dr. 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 He did see Dr. Lainez for post atrial flutter ablation follow-up. He now wants Dr. Lainze to do his INTERMEDIATE SCHOOL TEACHER D upgrade. Daughter is present. She is assisting with [place] interpretation. FORMERLY [facility], [facility] Medical History ICD (implantable cardioverter-defibrillator) in place Atrial flutter by electrocardiogram Cardiomyopathy Anomalous coronary artery origin Atherosclerotic cardiovascular disease Heart failure with reduced ejection fraction HLD (hyperlipidemia) Acute on chronic combined systolic and diastolic CHF (congestive heart failure) Nonischemic cardiomyopathy CAD (coronary artery disease) Hypertension Pacemaker Surgical History Stented coronary artery S/P cardiac cath Hx of cardiac catheterization Family History Father No problems noted. Mother No problems noted. Social History Household Members: None Household Members Other:: Dog Housing: Apartment Do you presently have visiting nurse or other home services: Yes (caregiver Marta.) Alcohol intake: current Alcohol intake frequency: a few times a month Alcohol type: beer Patient Tobacco Use Status: Never used Tobacco e-Cigarette/Vaping Use: Never Used Second Hand Smoke Exposure: No Substance Use Type: Marijuana Advance Directives Date on File: 10/02/24 service: No Current occupational status: disabled Review of Systems Const All systems reviewed & are unremarkable except as noted in HPI and below ENT Denies dizziness Card Denies chest pain, Denies chest pain at rest, Denies chest pain with activity, Denies rapid heart rate, Denies pedal edema, Denies edema, Denies leg edema, Denies lightheadedness, Denies palpitations, Denies dyspnea, Denies dyspnea on exertion and Denies orthopnea Resp Denies cough, Denies dyspnea and Denies dyspnea on exertion GI Denies hematochezia and Denies change in stool character Musc Denies abnormal gait, Denies limited range of motion, Denies muscle cramps, Denies muscle weakness, Denies numbness, Denies radiating pain into limb, Denies stiffness and Denies tingling Neuro Denies abnormal gait, Denies dizziness, Denies numbness and Denies tingling Endo Denies palpitations Physical Exam Vital Signs: Last Vital Signs Pulse 71 05/13/25 13:48 BP 90/62 05/13/25 13:48 BMI result Body Mass Index 27.5 Const General: cooperative, healthy appearing, comfortable and no acute distress Orientation/consciousness: patient oriented x3 Neck Neck: Yes normal visual inspection Resp Effort & Inspection: normal respiratory effort Auscultation: clear to auscultation bilaterally, no crackles, no rales, no rhonchi and no wheezes Cardio Jugular venous distension: no JVD Rate: regular rate Rhythm: regular rhythm Heart sounds: S1 normal heart sound present, S2 normal heart sound present, no gallops, no murmurs and no rubs Peripheral pulses: Peripheral pulses 2+ throughout Neuro General: patient oriented x3 Extrem General: Yes normal to inspection and No no pedal edema Psych Appearance: grossly normal Mental Status: mental status grossly normal Speech and movement: Normal speech and movement present Office Procedures EKG Details: Today, read by me, sinus rhythm with first-degree AV block, right bundle branch block with QRS 196 milliseconds, septal Q-wave, lateral infarct, rate 71, JT index 104.9 [id number], Complete Assessment & Plan Assessment & Plan (1) Atrial flutter: Code(s): I48.92 - Unspecified atrial flutter Category: Medical Plan: Newer atrial flutter, symptomatic with shortness of breath and chest discomfort. He had been on amiodarone for treatment of ventricular arrhythmias, and dose was initially increase then put back to 200 mg daily. He did have recurrent symptomatic atrial flutter, unstable during last hospital admission requiring [facility] transfer and inpatient atrial flutter ablation. EKG done today showing sinus rhythm with long first-degree AV block, right bundle branch block, rate 71. He is currently feeling well. He has ICD and his rhythm can be followed remotely. Continue carvedilol for rate control. Continue Eliquis for anticoagulation. (2) Heart failure with reduced ejection fraction: Code(s): I50.20 - Unspecified systolic (congestive) heart failure Category: Medical Plan: History of heart failure with reduced EF. Last echo 04/09/2025 showed EF 10-15%. ICD is in place. He is on appropriate guideline directed medical therapy. He does not appear fluid overloaded on examination. Continue Entresto, carvedilol, Aldactone, Jardiance for neurohormonal modulation. Labs done 04/29/2025 show potassium 4.3, creatinine 0.82. He is scheduled to undergo INTERMEDIATE SCHOOL TEACHER D upgrade. Signs and symptoms of heart failure reviewed with him. (3) Nonischemic cardiomyopathy: Code(s): I42.8 - Other cardiomyopathies Category: Medical Plan: Known history of nonischemic cardiomyopathy with last EF 10-15%. He has ICD and is on GDMT. INTERMEDIATE SCHOOL TEACHER D upgrade being planned (4) CAD (coronary artery disease): Code(s): I25.10 - Atherosclerotic heart disease of robinson coronary artery without angina pectoris Category: Medical Plan: History of coronary artery disease with stents placed to the RCA and LAD. No anginal symptoms at this time. Continue Brilinta uninterrupted for 1 year post stent, 10/2025. He is not on aspirin as he is on Eliquis. Continue rosuvastatin and Zetia with ideal LDL goal less than 70. Continue carvedilol. Signs and symptoms of angina reviewed with him. (5) S/P cardiac cath: Comment: 10/25/2023, lad 60-70% stenosis, YOVANA placed, proximal RCA stent patent 2024 cardiac catheterization patent proximal RCA stent, proximal LAD stenosis with PCI and YOVANA placed. Code(s): Z98.890 - Other specified postprocedural states Category: Surgical Plan: Known CAD with stents to the RCA and LAD. Last catheterization 10/25/2024 when YOVANA placed to the LAD. (6) Stented coronary artery: Code(s): Z95.5 - Presence of coronary angioplasty implant and graft Category: Surgical Plan: As above (7) ICD (implantable cardioverter-defibrillator) in place: Code(s): Z95.810 - Presence of automatic (implantable) cardiac defibrillator Category: Medical Plan: [facility] ICD in place. He has remote monitoring in use. Last office check shows it is functioning normally. (8) SVT (supraventricular tachycardia): Code(s): I47.1 - Supraventricular tachycardia Category: Medical Plan: History of supraventricular tachycardia as seen on remote monitoring. He is currently on carvedilol and Corlanor for heart rate control. No recent heart palpitations (9) Ventricular arrhythmia: Code(s): I49.9 - Cardiac arrhythmia, unspecified Category: Medical Plan: Episode of nonsustained ventricular tachycardia noted on remote monitoring July 2024. He was put on amiodarone at that time. No repeat NSVT since then. It seems that during his recent hospitalizations and a flutter ablation the amiodarone was stopped. Will follow for ventricular arrhythmias remotely. (10) Hypertension: Code(s): I10 - Essential (primary) hypertension Category: Medical Plan: Blood pressure goal less than 130/80. Blood pressure on the low side today, asymptomatic. No med changes made (11) Hospital discharge follow-up: Code(s): Z09 - Encounter for follow-up examination after completed treatment for conditions other than malignant neoplasm Category: Medical Plan: Discharge summary reviewed Plan Time spent on chart review, documentation, interview and assessment Coding Level of Care Code Est Pt Level 4 (78312) Complex EM visit Add On G2211 Diagnoses Atrial flutter I48.92 Heart failure with reduced ejection fraction I50.20 Nonischemic cardiomyopathy I42.8 CAD (coronary artery disease) I25.10 S/P cardiac cath Z98.890 Stented coronary artery Z95.5 ICD (implantable cardioverter-defibrillator) in place Z95.810 SVT (supraventricular tachycardia) I47.1 Ventricular arrhythmia I49.9 Hypertension I10 Hospital discharge follow-up Z09 CPT Codes EKG - CPT: 93558-[id number], Complete ([id number]) Time Spent (min) 36
== END 2025-05-13 14:34 | disposition home or self-care (01) ==
LOC: HO.HCS 12:55
PROVIDERS: PCP Internal Medicine; Visit Provider Nurse Practitioner Family
DX: I48.92 Unspecified atrial flutter (principal); I50.20 Unspecified systolic (congestive) heart failure; I42.8 Other cardiomyopathies; I25.10 Atherosclerotic heart disease of native coronary artery without angina pectoris; Z98.890 Other specified postprocedural states; Z95.5 Presence of coronary angioplasty implant and graft; Z95.810 Presence of automatic (implantable) cardiac defibrillator; I47.10 Supraventricular tachycardia, unspecified; I49.9 Cardiac arrhythmia, unspecified; I10 Essential (primary) hypertension; Z09 Encounter for follow-up examination after completed treatment for conditions other than malignant neoplasm
CPT/HCPCS: 93010; 99214; G2211

== ENCOUNTER → 2025-05-13 12:55 | Outpatient (BNVA) | payer OTHER, SELFPAY | PROVIDERS: PCP Internal Medicine; Visit Provider Nurse Practitioner Family | DX: I25.10 Atherosclerotic heart disease of native coronary artery without angina pectoris (principal); I50.20 Unspecified systolic (congestive) heart failure; Z95.5 Presence of coronary angioplasty implant and graft; Z95.810 Presence of automatic (implantable) cardiac defibrillator; I42.8 Other cardiomyopathies; I10 Essential (primary) hypertension; I47.10 Supraventricular tachycardia, unspecified | CPT/HCPCS: 93005; 99212 ==

== ENCOUNTER 2025-05-31 09:34 | Outpatient (REF) | payer OTHER, SELFPAY ==
--- OUTSIDE RECORDS SUMMARY | 2025-05-31 09:37 | XMS_ITS | Patient Health Record ---
Author Organization [facility] Address [address] [place] [address] Care Team Providers Care Health Economist Name Role Phone Imelda Sepulveda Primary Care Provider Unavailab Fabio Amin Unavailable [phone] Reason For Referral No Information Medications Medication [...] No Encounters Encounter Location Date Provider Diagnosis [facility] [address] [place] [address] [facility] [address] [place] [address] 11/15/2024 Fabio Silverio Plan Of Treatment No Information Insurance Providers Payer Name Payer Address Payer Phone Subscriber Number Group Number Insured Name Patient Relationship to Insured Coverage Start Date Coverage End Date [facility] SCO Claims [address] [place] [id number] Trenton Dasilva Self - patient is the insured Medical (General) History Medical History History ICD Code Heart disease High Blood Pressure Stroke Surgical History Surgery Date(Month/Year) cardiac pacemeker
[2025-05-31 09:43] LABS: MANUAL DIFF FLAG NO
[2025-05-31 10:46] LABS: Hematocrit 44.1 % (42.0-52.0); Hemoglobin 15.2 g/dl (14.0-18.0); Imm Gran Abs Auto 0.03 X10*3/uL (0.00-0.03); Imm Gran Pct Auto 0.4 % (0.0-0.4); Lymphocytes Absolute Auto 1.3 X10*3/uL (1.2-4.9); Mean Corpuscular HGB Conc 34.5 g/dl (31.0-36.0); Mean Corpuscular Hemoglobin 30.8 pg (27.0-33.0); Mean Corpuscular Volume 89.3 fL (80.0-98.0); NRBC Abs Auto 0.000 X10*3/uL (0.0-0.012); NRBC Pct Auto 0.0 /100WBC (0.0-0.2); Platelet Count 195 X10*3/uL (160-400); Red Blood Count 4.94 X10*6/uL (4.60-5.80); White Blood Count 6.8 X10*3/uL (4.8-10.8)
[2025-05-31 10:48] LABS: INTERNATIONAL NORM RATIO 1.2 (0.9-1.1); Prothrombin Time 14.3 SEC (10.9-12.4)
[2025-05-31 11:10] LABS: Anion Gap 11 (12-20); Blood Urea Nitrogen 14 mg/dL (9-16); Calcium 8.8 mg/dL (8.4-10.2); Carbon Dioxide 26 mmol/L (22-29); Chloride 106 mmol/L (96-108); Estimated Glomerular Filt Rate > 60; Potassium 3.9 mmol/L (3.3-5.1); Sodium 139 mmol/L (135-145)
== END 2025-05-31 09:35 | disposition home or self-care (01) ==
LOC: HO.LAB 09:34
PROVIDERS: PCP Internal Medicine; Visit Provider Student in an Organized Health Care Education/Training Program
DX: I48.92 Unspecified atrial flutter (principal); I25.10 Atherosclerotic heart disease of native coronary artery without angina pectoris
CPT/HCPCS: 36415; 80048; 85025; 85610

== ENCOUNTER → 2025-06-10 23:59 | Outpatient (BNV) | payer OTHER, SELFPAY ==
--- NOTE | 2025-06-12 16:21 | MHC.OFFVIS ---
Intake Visit Reasons: Remote ICD check- [facility] Allergies No Known Allergies Allergy (Verified 04/11/25 09:09) [facility] Medical History ICD (implantable cardioverter-defibrillator) in place Atrial flutter by electrocardiogram Cardiomyopathy Anomalous coronary artery origin Atherosclerotic cardiovascular disease Heart failure with reduced ejection fraction HLD (hyperlipidemia) Acute on chronic combined systolic and diastolic CHF (congestive heart failure) Nonischemic cardiomyopathy CAD (coronary artery disease) Hypertension Pacemaker Surgical History Stented coronary artery S/P cardiac cath Hx of cardiac catheterization Family History Father No problems noted. Mother No problems noted. Social History Household Members: None Household Members Other:: Dog Housing: Apartment Do you presently have visiting nurse or other home services: Yes (caregiver Marta.) Alcohol intake: current Alcohol intake frequency: a few times a month Alcohol type: beer Patient Tobacco Use Status: Never used Tobacco e-Cigarette/Vaping Use: Never Used Second Hand Smoke Exposure: No Substance Use Type: Marijuana Advance Directives Date on File: 10/02/24 service: No Current occupational status: disabled Office Procedures Cardiac Device Check Cardiac Device Check Details: Remote ICD report generated 06/10/2025. ICD function is adequate [id number] Cardiac Interrogation, implant defibrillator w/interim Procedure code (CPT) selection complete Assessment & Plan Assessment & Plan (1) ICD (implantable cardioverter-defibrillator) in place: Code(s): Z95.810 - Presence of automatic (implantable) cardiac defibrillator Category: Medical Plan: See above Coding Level of Care Code Procedure Only Diagnoses ICD (implantable cardioverter-defibrillator) in place Z95.810 CPT Codes Cardiac Device Check - Cardiac Device 13: [id number] Cardiac Interrogation, implant defibrillator w/interim ([id number])
== END ==
PROVIDERS: PCP Internal Medicine; Visit Provider Internal Medicine Cardiovascular Disease
DX: Z45.02 Encounter for adjustment and management of automatic implantable cardiac defibrillator (principal)
CPT/HCPCS: 93295

== ENCOUNTER 2025-07-29 09:17 | Inpatient (IN) | payer OTHER, SELFPAY ==
--- OUTSIDE RECORDS SUMMARY | 2024-11-16 05:30 | XMS_ITS ---
Author Organization [facility] Address [address] [place] [address] Care Team Providers Care Sales Agent Protective Service Name Role Phone Imelda Sepulveda Primary Care Provider Unavailab Fabio Amin Unavailable [phone] Medications Medication SIG (Take, Route, Frequency, Duration) [...] No Encounters Encounter Location Date Provider Diagnosis [facility] [address] [place] [address] 11/16/2024 Fabio Silverio Plan Of Treatment No Information Progress Notes * Sayda SIMMSOB:[birth year] (70 yo M)Acc No.[id number]:11/16/2024 Progress Notes Patient: Trenton ORANETS Provider: Jina Silverio DPM :1955 A ge:69 Y S ex:Male Date:11/16/2024 Address:[address] [place] [address] [facility] Pcp:Imelda Sepulveda Subjective: * Chief Complaints: * [...] enies. C ardiovascular: Pacemaker d enies. 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 W PW d enies. C [...] 0 11/16/2024 Generated for Jackie guerrero/Carter/Ronaldo on: 11:53 AM EDT
[2025-07-29] VITALS (12 sets, daily range): BP systolic 92–117; BP diastolic 61–80; PULSE 73–95; RESP 12–30; TEMP 36.2–36.9; O2SAT 94–97; BMI 27.9; BMI 26.1
--- NOTE | 2025-07-29 | ECG_ITS ---
Test Reason : chest pain Blood Pressure : */* mmHG Vent. Rate : 108 BPM Atrial Rate : 108 BPM P-R Int : 120 ms QRS Dur : 198 ms QT Int : 430 ms P-R-T Axes : 48 -88 96 degrees QTcB Int : 576 ms Atrial-sensed ventricular-paced rhythm Abnormal ECG When compared with ECG of 12-Apr-2025 15:12, Electronic ventricular pacemaker has replaced Sinus rhythm Referred By: Generic ED Physician Electronically Signed By: DANYELL ROMAN MD
--- NOTE | ~2025-07-29 | XR_ITS ---
EXAMINATION: XR CHEST 1 VIEW HISTORY: pain COMPARISON: Comparison is made with the prior examination dated 04/11/2025. FINDINGS: A single AP portable view of the chest performed at 10:25 AM is submitted. A left subclavian dual-chamber pacemaker is unchanged in position. There is prominence of pulmonary vasculature with bilateral Kira B lines, consistent with interstitial edema. There may be tiny bilateral pleural effusions. There is no pneumothorax. The heart remains enlarged. The aorta is calcified. There is degenerative disc disease of the spine. XR/XR chest 1V IMPRESSION: Cardiomegaly and interstitial pulmonary edema. Electronically signed by: Isaac Eldridge MD 07/29/2025 10:38 AM EDT
[2025-07-29 09:47] LABS: MANUAL DIFF FLAG NO
[2025-07-29 09:50] LABS: Hematocrit 38.9 % (42.0-52.0); Hemoglobin 13.5 g/dl (14.0-18.0); Imm Gran Abs Auto 0.03 X10*3/uL (0.00-0.03); Imm Gran Pct Auto 0.4 % (0.0-0.4); Lymphocytes Absolute Auto 1.0 X10*3/uL (1.2-4.9); Mean Corpuscular HGB Conc 34.7 g/dl (31.0-36.0); Mean Corpuscular Hemoglobin 31.1 pg (27.0-33.0); Mean Corpuscular Volume 89.6 fL (80.0-98.0); NRBC Abs Auto 0.000 X10*3/uL (0.0-0.012); NRBC Pct Auto 0.0 /100WBC (0.0-0.2); Platelet Count 199 X10*3/uL (160-400); Red Blood Count 4.34 X10*6/uL (4.60-5.80); White Blood Count 7.2 X10*3/uL (4.8-10.8)
[2025-07-29 10:04] LABS: Alanine Aminotransferase 24 U/L (0-40); Albumin Level 4.4 g/dL (3.5-5.0); Alkaline Phosphatase 61 U/L (39-117); Anion Gap 13 (12-20); Aspartate Amino Transferase 23 U/L (5-37); Blood Urea Nitrogen 14 mg/dL (9-16); Calcium 9.1 mg/dL (8.4-10.2); Carbon Dioxide 24 mmol/L (22-29); Chloride 106 mmol/L (96-108); Estimated Glomerular Filt Rate > 60; Potassium 4.1 mmol/L (3.3-5.1); Sodium 139 mmol/L (135-145); Total Protein 7.0 g/dL (6.5-8.0)
[2025-07-29 10:10] LABS: Magnesium 2.2 mg/dL (1.6-2.6)
[2025-07-29 10:12] LABS: Troponin-I High Sensitivity 9.0 ng/L (<3.5-35.0)
--- NOTE | 2025-07-29 10:13 | ED.CHESTPAIN ---
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 He states it lasted a while but he feels much better now. He has no symptoms now. He took all of his AM medications including eliquis this AM. He and his BRICK WHEELER note he has been doing really well and was not sick as of yesterday. He felt fine before bed. MD complaint: chest pain Onset (ago): day(s) (today 7am) Timing of current episode: now resolved Prior episodes: Yes Onset: during rest Pain location: substernal Pain radiation: none Severity: moderate Quality: tightness Relieving factors: nothing Exacerbating factors: nothing Context: other Associated symptoms: nausea, diaphoresis and dyspnea Treatment prior to arrival: none Related Data Home Medications ?Medication ?Instructions ?Recorded ?Confirmed ezetimibe 10 mg tablet 10 mg PO DAILY 08/18/20 05/13/25 rosuvastatin 40 mg tablet 40 mg PO BEDTIME 08/18/20 05/13/25 empagliflozin 10 mg tablet 10 mg PO DAILY 02/27/25 05/13/25 (Jardiance) acetaminophen 650 mg 650 mg PO TID PRN pain 04/11/25 05/13/25 tablet,extended release carvedilol 6.25 mg tablet 6.25 mg PO BID 05/13/25 05/13/25 nitroglycerin 0.4 mg sublingual 0.4 mg sublingual Q5M PRN 05/13/25 05/13/25 tablet Previous Rx's ?Medication ?Instructions ?Recorded spironolactone 25 mg tablet 25 mg PO DAILY 90 days #90 tabs 04/20/23 apixaban 5 mg tablet (Eliquis) 5 mg PO BID #60 tabs 03/28/25 clopidogrel 75 mg tablet (Plavix) 75 mg PO DAILY #90 tabs 05/02/25 furosemide 40 mg tablet 40 mg PO DAILY #30 tabs 05/02/25 sacubitril 24 mg-valsartan 26 mg 1 tab PO BID #180 tabs 06/18/25 tablet (Entresto) Allergies Allergy/AdvReac Type Severity Reaction Status Date / Time No Known Allergies Allergy Verified 07/29/25 10:10 Review of Systems Review of Systems: Constitutional : pos sweats No Fever, No Chills ENT/Mouth : No sore throat, No Rhinorrhea Eyes: No Eye Pain, No Swelling Cardiovascular : pos Chest Pain, pos SOB, no Dyspnea on Exertion, No Orthopnea, No Edema, No Palpitations Respiratory : No Cough, No Sputum Gastrointestinal : pos Nausea, No Vomiting, No Diarrhea, No abdominal Pain, No Hematochezia, No Melena Genitourinary : No Dysuria, No Urinary Frequency Musculoskeletal : No joint pain, No Myalgias, No Joint Swelling Skin : No Skin Lesions, No rash Neuro : No Weakness, No Numbness, No Dizziness, No Headache All other systems reviewed and are negative Yes all other systems are reviewed and are negative [facility] Past Medical History Attestation statement: The following information was validated with the patient. Source: old records reviewed Medical History ICD (implantable cardioverter-defibrillator) in place Atrial flutter by electrocardiogram Cardiomyopathy Anomalous coronary artery origin Atherosclerotic cardiovascular disease Heart failure with reduced ejection fraction HLD (hyperlipidemia) Acute on chronic combined systolic and diastolic CHF (congestive heart failure) Nonischemic cardiomyopathy CAD (coronary artery disease) Hypertension Pacemaker Surgical History Stented coronary artery S/P cardiac cath Hx of cardiac catheterization Family History Family History Father No problems noted. Mother No problems noted. Social History Social History Household Members: None Household Members Other:: Dog Housing: Apartment Do you presently have visiting nurse or other home services: Yes (caregiver Marta.) Alcohol intake: current Alcohol intake frequency: a few times a month Alcohol type: beer Patient Tobacco Use Status: Never used Tobacco Smoked in Last 30 Days: No e-Cigarette/Vaping Use: Never Used Second Hand Smoke Exposure: No Use of substances other than those prescribed or required for medical reasons: No Substance Use Type: Marijuana Advance Directives: Yes Advance Directives on File: Yes Advance Directives Date on File: 10/02/24 service: No Current occupational status: disabled Physical Exam Vital Signs: Vital Signs: Last Vital Signs Temp 98.1 F 07/29/25 10:08 Pulse 75 07/29/25 11:53 Resp 30 H 07/29/25 10:08 BP 96/62 07/29/25 11:53 Pulse Ox 95 07/29/25 11:48 O2 Del Method Room Air 07/29/25 11:48 BMI result Body Mass Index 27.9 Appearance: Alert. Oriented X3. No acute distress. Eyes: Pupils equal, round and reactive to light. ENT: Pharynx normal. Neck: Normal inspection. Neck supple. CVS: Normal heart rate and rhythm. Pulses normal. Chest: incision site is c/d/i Respiratory: No respiratory distress. Breath sounds rales both bases Abdomen: Soft and nontender. Skin: Skin warm and dry. Normal skin color. Normal skin turgor. Extremities: No lower extremity edema. No calf ttp Neuro: Oriented X 3. No motor deficit. No sensory deficit. 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 He has no active chest pain. He is compiant with is his eliquis low susp for VTE Differential Diagnosis Differential Diagnoses: The differential diagnosis associated with the presentation includes CAD, CHF, viral syndrome Admission/Observation Consideration of admission/observation: Escalation of care including admission/observation considered admit for diuresis and further workup Consult Healthcare Provider Management of the patient was discussed with: Hospitalist (will admit) Lab Data MDM Lab Attestation statement: I reviewed the patient's lab results. 07/29/25 09:44 07/29/25 09:44 Labs: Lab Results 07/29/25 07/29/25 Range/Units 09:44 11:42 WBC 7.2 (4.8-10.8) X10*3/uL RBC 4.34 L (4.60-5.80) X10*6/uL Hgb 13.5 L (14.0-18.0) g/dl Hct 38.9 L (42.0-52.0) % MCV 89.6 (80.0-98.0) fL MCH 31.1 (27.0-33.0) pg MCHC 34.7 (31.0-36.0) g/dl RDW 13.2 (11.0-16.0) % Plt Count 199 (160-400) X10*3/uL MPV 10.7 (9.4-12.4) fL Immature Gran % (Auto) 0.4 (0.0-0.4) % Neut % (Auto) 78.1 H (45-73) % Lymph % (Auto) 13.4 L (20-40) % [place] % (Auto) 7.0 (2-11) % Eos % (Auto) 0.7 (0-4) % Baso % (Auto) 0.4 (0-2) % Lymph # (Auto) 1.0 L (1.2-4.9) X10*3/uL [place] # (Auto) 0.5 (0.1-1.2) X10*3/uL Eos # (Auto) 0.1 (0.0-0.4) X10*3/uL Baso # (Auto) 0.0 (0.0-0.2) X10*3/uL Abs Immat Gran (auto) 0.03 (0.00-0.03) X10*3/uL Absolute Neuts (auto) 5.6 (2.0-8.3) x10*3/uL Absolute Nucleated RBC 0.000 (0.0-0.012) X10*3/uL Nucleated RBC % (auto) 0.0 (0.0-0.2) /100WBC Sodium 139 (135-145) mmol/L Potassium 4.1 (3.3-5.1) mmol/L Chloride 106 (96-108) mmol/L Carbon Dioxide 24 (22-29) mmol/L Anion Gap 13 (12-20) BUN 14 (9-16) mg/dL Creatinine 0.85 (0.5-1.4) mg/dL Estim Creat Clear Calc TNP Estimated GFR > 60 Random Glucose 131 H (60-115) mg/dL Calcium 9.1 (8.4-10.2) mg/dL Magnesium 2.2 (1.6-2.6) mg/dL Total Bilirubin 1.1 H (0.0-1.0) mg/dL AST 23 (5-37) U/L ALT 24 (0-40) U/L Alkaline Phosphatase 61 (39-117) U/L Troponin I High Sens 9.0 D 8.9 (<3.5-35.0) ng/L NT-Pro-B Natriuret Pep 5974.1 H (<300) pg/mL Total Protein 7.0 (6.5-8.0) g/dL Albumin 4.4 (3.5-5.0) g/dL TSH 1.06 (0.32-4.0) uIU/mL Independent Interpretation I performed an independent interpretation of an: EKG and Plain X-Ray (CHF) Interpretation: Rate: 108 Rhythm: a paced [place]: left wide QRS complex. ST T wave : no MACY, inverted t waves aVL, no MACY qTC: 576 prior studies: paced The study has been interpreted contemporaneously by me. . Radiology Impression Discussion of test interpretation with radiology: I have reviewed the radiologist's reading. External Record Review External record reviewed: Inpatient record, Outpatient record, Prior outpatient labs and Prior outpatient radiology Discharge Plan Discharge Clinical Impression: Acute on chronic systolic CHF (congestive heart failure) Patient Disposition: Admitted As Inpatient Print Language: Other
--- NOTE | 2025-07-29 10:13 | PC.NURSE ---
Pt roomed and placed on full monitor- caregiver at bedside and helping with pt hx. Pt in nad at the moment- VSS. NSR on monitor
[2025-07-29 10:14] LABS: NT Pro B Type Natriuretic Pept 5974.1 pg/mL (<300)
[2025-07-29] MEDS: Furosemide 20 MG/2 ML VIAL IVPUSH (10:27)
--- OUTSIDE RECORDS SUMMARY | 2025-07-29 11:54 | XMS_ITS | Patient Health Record ---
Author Organization [facility] Address [address] [place] [address] Care Team Providers Care Dye Stand Loader Name Role Phone Imelda Sepulveda Primary Care Provider Unavailab Fabio Amin Unavailable [phone] Reason For Referral No Information Medications Medication [...] No Encounters Encounter Location Date Provider Diagnosis [facility] [address] [place] [address] [facility]14[facility] [address] [place] [address] 11/15/2024 Fabio Silverio Plan Of Treatment No Information Insurance Providers Payer Name Payer Address Payer Phone Subscriber Number Group Number Insured Name Patient Relationship to Insured Coverage Start Date Coverage End Date [facility] SCO Claims [address] [place] [id number] Trenton Dasilva Self - patient is the insured Medical (General) History Medical History History ICD Code Heart disease High Blood Pressure Stroke Surgical History Surgery Date(Month/Year) cardiac pacemeker
[2025-07-29 12:09] LABS: Troponin-I High Sensitivity 8.9 ng/L (<3.5-35.0)
--- NOTE | 2025-07-29 12:19 | PM.IMHP ---
History of Present Illness Date of Service: 07/29/25 Attending physician on admission: Cristobal Ash Chief Complaint: Palpitations Pt is a 70-year-old Gambian-speaking male with a PMH significant for?HTN, SVT, HFrEF with LVEF 10%, nonischemic cardiomyopathy, ventricular arrhythmia on amiodarone and with ICD in place, CAD s/p RCA and LAD stenting, and atrial flutter s/p ablation on Eliquis who presents to the ED with?palpitations, chest pain, fatigue, and SOB for the past few days. Pt reports symptoms began yesterday when he woke up and felt much more fatigued than normal. Reports has been experiencing central, substernal chest pain that is worse with deep inspiration. Mild nonproductive cough slightly worse than at baseline. Is neither sharp, stabbing, or a pressure/weight. Denies lower leg edema or orthopnea. Pt reports has been compliant with all of his home medications. Pt lives alone and uses a walker at baseline. No fever or chills. Denies nausea, vomiting, diarrhea, or abdominal pain. In the ED pt's vitals were significant for tachypnea up to 30, otherwise stable. Labs were significant for NT pro BNP 5974.1 otherwise grossly unremarkable. Serial troponins flat at 9.0 and 8.9. CXR showed cardiomegaly and interstitial pulmonary edema. EKG demonstrated atrial sensed ventricular paced rhythm without significant ischemic changes from prior. Pt was treated in the ED with Lasix 20mg IV. Pt is admitted to the hospital for treatment and further evaluation of acute decompensated HFrEF exacerbation. Review of Systems Review of Systems: Negative except for that which is stated in the HPI. FORMERLY [facility] Medical History ICD (implantable cardioverter-defibrillator) in place Atrial flutter by electrocardiogram Cardiomyopathy Anomalous coronary artery origin Atherosclerotic cardiovascular disease Heart failure with reduced ejection fraction HLD (hyperlipidemia) Acute on chronic combined systolic and diastolic CHF (congestive heart failure) Nonischemic cardiomyopathy CAD (coronary artery disease) Hypertension Pacemaker Family History Father No problems noted. Mother No problems noted. Surgical History Stented coronary artery S/P cardiac cath Hx of cardiac catheterization Social History Household Members: None Household Members Other:: Dog Housing: Apartment Do you presently have visiting nurse or other home services: Yes (caregiver Marta.) Alcohol intake: current Alcohol intake frequency: a few times a month Alcohol type: beer Patient Tobacco Use Status: Never used Tobacco Smoked in Last 30 Days: No e-Cigarette/Vaping Use: Never Used Second Hand Smoke Exposure: No Use of substances other than those prescribed or required for medical reasons: No Substance Use Type: Marijuana Advance Directives: Yes Advance Directives on File: Yes Advance Directives Date on File: 10/02/24 service: No Current occupational status: disabled Meds Allergies Allergy/AdvReac Type Severity Reaction Status Date / Time No Known Allergies Allergy Verified 07/29/25 10:10 Home Medications ?Medication ?Instructions ?Recorded ?Confirmed ?Last Taken ?Type ezetimibe 10 mg tablet 10 mg PO DAILY 08/18/20 07/29/25 07/29/25 History rosuvastatin 40 mg tablet 40 mg PO BEDTIME 08/18/20 07/29/25 07/28/25 History empagliflozin 10 mg tablet 10 mg PO DAILY 02/27/25 07/29/25 07/29/25 History (Jardiance) acetaminophen 650 mg 650 mg PO TID PRN pain 04/11/25 07/29/25 Unknown History tablet,extended release Physical Exam Vital Signs and Narrative: Vital Signs: Last Vital Signs Temp 98.1 F 07/29/25 10:08 Pulse 75 07/29/25 11:53 Resp 30 H 07/29/25 10:08 BP 96/62 07/29/25 11:53 Pulse Ox 95 07/29/25 11:48 O2 Del Method Room Air 07/29/25 11:48 BMI result Body Mass Index 27.9 General: AOx3, no acute distress Resp: Bibasilar crackles CVS: S1, S2, RRR GI: +BS, NT, no distention Skin: Warm, dry Neuro: Cranial nerves II-XII grossly intact bilaterally. Motor grossly intact bilaterally Extremities: No edema Psych: Appropriate affect Results Labs 07/29/25 09:44 07/29/25 09:44 Labs: Laboratory Results - last 24 hr 07/29/25 07/29/25 09:44 11:42 MCV 89.6 MCH 31.1 MCHC 34.7 RDW 13.2 Plt Count 199 MPV 10.7 Immature Gran % (Auto) 0.4 Neut % (Auto) 78.1 H Lymph % (Auto) 13.4 L [place] % (Auto) 7.0 Eos % (Auto) 0.7 Baso % (Auto) 0.4 Lymph # (Auto) 1.0 L [place] # (Auto) 0.5 Eos # (Auto) 0.1 Baso # (Auto) 0.0 Abs Immat Gran (auto) 0.03 Absolute Neuts (auto) 5.6 Absolute Nucleated RBC 0.000 Nucleated RBC % (auto) 0.0 Anion Gap 13 Estim Creat Clear Calc TNP Estimated GFR > 60 Random Glucose 131 H Calcium 9.1 Magnesium 2.2 Total Bilirubin 1.1 H AST 23 ALT 24 Alkaline Phosphatase 61 Troponin I High Sens 9.0 D 8.9 NT-Pro-B Natriuret Pep 5974.1 H Total Protein 7.0 Albumin 4.4 TSH 1.06 Imaging Radiologist's Impressions: Impressions Chest X-Ray 07/29/25 10:25 IMPRESSION: Cardiomegaly and interstitial pulmonary edema. Electronically signed by: Isaac Eldridge MD 07/29/2025 10:38 AM EDT RP Assessment and Plan (1) Acute exacerbation of congestive heart failure: Status: Resolved Plan Pt is a 70-year-old [place]ian-speaking male with a PMH significant for?HTN, SVT, HFrEF with LVEF 10%, nonischemic cardiomyopathy, ventricular arrhythmia on amiodarone and with ICD in place, CAD s/p RCA and LAD stenting, and atrial flutter s/p ablation on Eliquis who presents to the ED with?palpitations, chest pain, fatigue, and SOB for the past few days. Pt is admitted to the hospital for treatment and further evaluation of acute decompensated HFrEF exacerbation. Acute decompensated HFrEF exacerbation Pt with increased SOB and MOSQUEDA, elevated pro BNP, CXR showing pulmonary edema Lasix 40mg bid Will treat with Lasix 40 mg IV b.i.d. starting tomorrow Continue Entresto, spironolactone, Jardiance Echo 04/09/2025 showed severely increased left ventricular cavity size with LVEF 10-15% Follow lytes, mag, I/O Daily weights, low-salt diet Cardiology consult Monitor on telemetry CAD Continue clopidogrel, ezetimibe, rosuvastatin Paroxysmal AFib S/p recent ablation Continue Eliquis Full Code Attending:?Dr. Ash DVT Prophylaxis: On Eliquis Pt will require a hospitalization of at least two nights for treatment of?acute decompensated HFrEF exacerbation. Given patient's significant comorbidities, including CAD and ICD, as well as recent ablation and echo showing LVEF 10-20%, he is at significant risk of further deterioration without hospital-level care with IV diuresing and specialist consultation with cardiology. Quality Stroke Does the patient have a stroke diagnosis?: No VTE Prior VTE?: No VTE Risk Level:: Medical - moderate - high VTE Device Contraindication: Treatment Not Indicated VTE Drug Contraindication: N/A - Med Ordered
--- NOTE | 2025-07-29 14:34 | PHA.MEDREC ---
Addendum entered by Feliz Linares PharmD 07/29/25 14:42: reviewed Original Note: Pharmacy Consult ? Medication Reconciliation Pharmacy has completed the medication reconciliation. Spoke with pt, utilizing carpet tile layer services and he confirmed his medications.
[2025-07-29 16:24] LABS: NT Pro B Type Natriuretic Pept 5268.8 pg/mL (<300)
--- NOTE | 2025-07-29 16:40 | HO.NURTONUR ---
Pt has sig cardiac hx afib, aicd, RCA and LAD stent, and HF. Pt awoke this am w/ cp, sob, and diaphoresis. CXR show mild pulmonary edema. Pt being admitted for diuresing.
[2025-07-29] MEDS: Furosemide 40 MG/4 ML VIAL IVPUSH (18:59)
[2025-07-29] MEDS: 0.9 % Sodium Chloride Flush 3 ML SYRINGE IVFLUSH ×2 (19:01→23:11)
[2025-07-29] MEDS: Sacubitril/Valsartan 24/26 1 TAB TABLET PO (21:16)
[2025-07-30 03:06] VITALS: BP 104/67; PULSE 75; RESP 18; TEMP 36; O2SAT 96
[2025-07-30 05:39] VITALS: BMI 26.1
[2025-07-30 06:13] LABS: Hematocrit 43.4 % (42.0-52.0); Hemoglobin 14.7 g/dl (14.0-18.0); Mean Corpuscular HGB Conc 33.9 g/dl (31.0-36.0); Mean Corpuscular Hemoglobin 30.3 pg (27.0-33.0); Mean Corpuscular Volume 89.5 fL (80.0-98.0); NRBC Abs Auto 0.000 X10*3/uL (0.0-0.012); NRBC Pct Auto 0.0 /100WBC (0.0-0.2); Platelet Count 201 X10*3/uL (160-400); Red Blood Count 4.85 X10*6/uL (4.60-5.80); White Blood Count 7.0 X10*3/uL (4.8-10.8)
--- NOTE | 2025-07-30 06:22 | ECG_ITS ---
Test Reason : CP Blood Pressure : */* mmHG Vent. Rate : 129 BPM Atrial Rate : 129 BPM P-R Int : * ms QRS Dur : 174 ms QT Int : 408 ms P-R-T Axes : * 214 -15 degrees QTcB Int : 597 ms Ventricular-paced rhythm with Premature ventricular complexes Abnormal ECG When compared with ECG of 29-Jul-2025 09:22, Vent. rate has increased by 21 bpm Referred By: Cristobal Ash Electronically Signed By: DANYELL ROMAN MD
[2025-07-30 06:39] LABS: Anion Gap 17 (12-20); Blood Urea Nitrogen 17 mg/dL (9-16); Calcium 9.1 mg/dL (8.4-10.2); Carbon Dioxide 22 mmol/L (22-29); Chloride 105 mmol/L (96-108); Creatinine Clr Calc Pharmacy 90.5; Estimated Glomerular Filt Rate > 60; Magnesium 2.4 mg/dL (1.6-2.6); Potassium 4.0 mmol/L (3.3-5.1); Sodium 140 mmol/L (135-145)
[2025-07-30 07:18] VITALS: BP 114/73; PULSE 81; RESP 16; TEMP 36.1; O2SAT 98
--- NOTE | 2025-07-30 07:53 | P.PNIM_ITS ---
Subjective Subjective Date of Service: 07/30/25 Interval History: Feeling better with breathing improved Has been noted on monitoring to have moments of tachycardia into the 120s with possible recurrent atrial flutter Occasional palpitations Denies chest pain No cough Review of Systems Review of Systems: Yes all other systems are reviewed and are negative Physical Exam 2 Exam: Exam: General: AOx3, no acute distress Resp: CTA bilaterally CVS: S1, S2, RRR GI: +BS, NT, no distention Skin: Warm, dry Neuro: Cranial nerves II-XII grossly intact bilaterally. Motor grossly intact bilaterally Extremities: No edema Psych: Appropriate affect Vital Signs: Vital Signs: Last Vital Signs Temp 97.0 F 07/30/25 07:18 Pulse 81 07/30/25 07:18 Resp 16 07/30/25 07:18 BP 114/73 07/30/25 07:18 Pulse Ox 98 07/30/25 07:18 O2 Del Method Room Air 07/30/25 07:18 BMI result Body Mass Index 26.1 Objective Data Active Medications Acetaminophen (Acetaminophen 325 Mg Tablet) 650 mg PO Q6H PRN PRN Reason: Pain, Mild 1-3,fever,headache Apixaban (Apixaban 5 Mg Tablet) 5 mg PO BID [facility] Last Admin: 07/29/25 21:16 Dose: 5 mg Documented By: ARUN Atorvastatin Calcium (Atorvastatin Calcium 80 Mg Tablet) 80 mg PO BEDTIME [facility] Last Admin: 07/29/25 21:16 Dose: 80 mg Documented By: ARUN Calcium Carbonate (Calcium Carbonate 750 Mg Tab.Chew) 750 mg PO Q4H PRN PRN Reason: Heartburn Carvedilol (Carvedilol 3.125 Mg Tablet) 3.125 mg PO BID [facility]; Protocol Clopidogrel Bisulfate (Clopidogrel Bisulfate 75 Mg Tablet) 75 mg PO DAILY [facility] Ezetimibe (Ezetimibe 10 Mg Tablet) 10 mg PO DAILY [facility] Empagliflozin (Empagliflozin 10 Mg Tablet) 10 mg PO DAILY [facility] Furosemide (Furosemide 40 Mg/4 Ml Vial) 40 mg IVPUSH BID@0900,1800 [facility]; Protocol Last Admin: 07/29/25 18:59 Dose: 40 mg Documented By: ARUN Magnesium Hydroxide (Milk Of Magnesia 30 Ml Oral.Susp) 30 ml PO DAILY PRN PRN Reason: Constipation Melatonin (Melatonin 3 Mg Tablet) 6 mg PO BEDTIME PRN PRN Reason: Insomnia Ondansetron HCl (Ondansetron Hcl 4 Mg/2 Ml Vial) 4 mg IVPUSH Q8H PRN PRN Reason: Nausea and Vomiting Sacubitril/Valsartan (Sacubitril/Valsartan 1 Tab Tablet) 1 tab PO BID [facility]; Protocol Last Admin: 07/29/25 21:16 Dose: 1 tab Documented By: ARUN Sodium Chloride (0.9 % Sodium Chloride Flush 3 Ml Syringe) 3 ml IVFLUSH QSHIFT [facility] Last Admin: 07/29/25 23:11 Dose: 3 ml Documented By: SARAHI Spironolactone (Spironolactone 25 Mg Tablet) 25 mg PO DAILY [facility]; Protocol Labs 07/30/25 06:03 07/30/25 06:03 Labs: Laboratory Results - last 24 hr 07/29/25 07/29/25 07/29/25 09:44 11:42 15:33 MCV 89.6 MCH 31.1 MCHC 34.7 RDW 13.2 Plt Count 199 MPV 10.7 Immature Gran % (Auto) 0.4 Neut % (Auto) 78.1 H Lymph % (Auto) 13.4 L [place] % (Auto) 7.0 Eos % (Auto) 0.7 Baso % (Auto) 0.4 Lymph # (Auto) 1.0 L [place] # (Auto) 0.5 Eos # (Auto) 0.1 Baso # (Auto) 0.0 Abs Immat Gran (auto) 0.03 Absolute Neuts (auto) 5.6 Absolute Nucleated RBC 0.000 Nucleated RBC % (auto) 0.0 Anion Gap 13 Estim Creat Clear Calc TNP Estimated GFR > 60 Random Glucose 131 H Calcium 9.1 Magnesium 2.2 Total Bilirubin 1.1 H AST 23 ALT 24 Alkaline Phosphatase 61 Troponin I High Sens 9.0 D 8.9 NT-Pro-B Natriuret Pep 5974.1 H 5268.8 H Total Protein 7.0 Albumin 4.4 TSH 1.06 07/30/25 06:03 MCV 89.5 MCH 30.3 MCHC 33.9 RDW 13.2 Plt Count 201 MPV 10.8 Immature Gran % (Auto) Neut % (Auto) Lymph % (Auto) [place] % (Auto) Eos % (Auto) Baso % (Auto) Lymph # (Auto) [place] # (Auto) Eos # (Auto) Baso # (Auto) Abs Immat Gran (auto) Absolute Neuts (auto) Absolute Nucleated RBC 0.000 Nucleated RBC % (auto) 0.0 Anion Gap 17 Estim Creat Clear Calc 90.5 Estimated GFR > 60 Random Glucose 94 Calcium 9.1 Magnesium 2.4 Total Bilirubin AST ALT Alkaline Phosphatase Troponin I High Sens NT-Pro-B Natriuret Pep Total Protein Albumin TSH Assessment and Plan (1) Acute on chronic systolic CHF (congestive heart failure): Status: Acute Plan Pt is a 70-year-old Brazilian-speaking male with a PMH significant for?HTN, SVT, HFrEF with LVEF 10%, nonischemic cardiomyopathy, ventricular arrhythmia on amiodarone and with ICD in place, CAD s/p RCA and LAD stenting, and atrial flutter s/p ablation on Eliquis who presents to the ED with?palpitations, chest pain, fatigue, and SOB for the past few days. Pt is admitted to the hospital for treatment and further evaluation of acute decompensated HFrEF exacerbation. Acute decompensated HFrEF exacerbation Pt with increased SOB and MOSQUEDA, elevated pro BNP, CXR showing pulmonary edema Lasix 40mg IV bid Continue arvedilol, Entresto, spironolactone, Jardiance Echo 04/09/2025 showed severely increased left ventricular cavity size with LVEF 10-15% Follow lytes, mag, I/O Daily weights, low-salt diet Cardiology following Monitor on telemetry Paroxysmal AFib S/p recent ablation Has been noted to to have runs of tachycardia and possible ventricular arrhythmia overnight and during the day Will place pt on an amiodarone drip after initial bolus, per Cardiology recommendations Continue Eliquis CAD Continue clopidogrel, ezetimibe, rosuvastatin Full Code Attending:?Dr. Ash DVT Prophylaxis: On Eliquis Pt will require continued hospitalization for treatment of acute decompensated CHF exacerbation with IV diuretics, as well as tachycardia and arrhythmias requiring IV amiodarone and close cardiac monitoring. Quality Stroke Does the patient have a stroke diagnosis?: No VTE Prior VTE?: No VTE Risk Level:: Medical - moderate - high VTE Device Contraindication: Treatment Not Indicated VTE Drug Contraindication: N/A - Med Ordered
[2025-07-30] MEDS: Sacubitril/Valsartan 24/26 1 TAB TABLET PO ×2 (08:39→20:15)
[2025-07-30] MEDS: 0.9 % Sodium Chloride Flush 3 ML SYRINGE IVFLUSH ×2 (08:40→20:16)
[2025-07-30] MEDS: Furosemide 40 MG/4 ML VIAL IVPUSH ×2 (08:40→17:45)
--- NOTE | 2025-07-30 10:30 | PM.CNCAR ---
History of Present Illness History of Present Illness Date of Service: 07/30/25 Requesting physician: Fadumo Gilliland Consult reason: congestive heart failure Chief complaint: CHF Exacerbation Narrative: I was consulted to see [place] in cardiology consultation today for decompensated congestive heart failure. History was obtained with help of forensic engineer at bedside. Patient is 70-year-old male with severe cardiomyopathy with LVEF of 10-15% with [employer] ICD in place, with prior history of atrial flutter with rapid ventricular response status post ablation, frequent episodes of ventricular arrhythmias as well as SVT, heart failure with reduced ejection fraction came to the hospital with worsening shortness of breath. Patient is currently not on carvedilol therapy as per the med reconciliation but was on carvedilol therapy on office visit in March and was prescribed a carvedilol therapy unclear as to why this got dropped off. Patient says he has also been drinking a lot of fluid. Came in the hospital with worsening shortness of breath will few days. There was no sudden-onset shortness of breath. There was no associated chest pain. Patient was noted to have intermittent episodes of tachyarrhythmias, question atrial flutter is unclear based on the EKGs versus also having frequent PVCs. Last night he had frequent PVCs with tachycardia run. Patient says he is better has been diuresing since he has been here and his shortness of breath has improved although still appears to be in mild respiratory distress. Denies any palpitations. Was supposed to help with device upgrade to cardiac resynchronization therapy, looking into that if this was done intervally since April when we saw him in the clinic. Patient overnight has been started on carvedilol therapy this morning. Continues to be on Entresto, Jardiance as well as spironolactone therapy and on IV Lasix. Review of Systems Constitutional: Constitutional: Reports weakness Eyes: Eyes: Reports no additional eye complaints Cardiovascular: Cardiovascular: Denies chest pain, Denies rapid heart rate, Denies leg edema, Denies Loss of Consciousness, Reports dyspnea on exertion, Reports orthopnea and Reports other (No ICD discharge) Respiratory: Respiratory: Reports dyspnea on exertion Gastrointestinal: Gastrointestinal: Reports no additional gastrointestinal complaints Genitourinary: Genitourinary: Reports no additional male genitourinary complaints Musculoskeletal: Musculoskeletal: Reports no additional musculoskeletal complaints Integumentary/Breasts: Skin/Breast: Reports system reviewed and no additional complaints, except as docu Neurologic: Reports system reviewed and no additional complaints, except as documented and Reports weakness Psychiatric: Psychiatric: Reports no additional psychiatric complaints PMFSH Past Medical History Medical History ICD (implantable cardioverter-defibrillator) in place Atrial flutter by electrocardiogram Cardiomyopathy Anomalous coronary artery origin Atherosclerotic cardiovascular disease Heart failure with reduced ejection fraction HLD (hyperlipidemia) Acute on chronic combined systolic and diastolic CHF (congestive heart failure) Nonischemic cardiomyopathy CAD (coronary artery disease) Hypertension Pacemaker Family History Family History Father No problems noted. Mother No problems noted. Surgical History Surgical History Stented coronary artery S/P cardiac cath Hx of cardiac catheterization Social History Social History Household Members: None Household Members Other:: Dog Housing: Apartment Do you presently have visiting nurse or other home services: No Alcohol intake: current Alcohol intake frequency: a few times a month Alcohol type: beer Patient Tobacco Use Status: Never used Tobacco Smoked in Last 30 Days: No e-Cigarette/Vaping Use: Never Used Second Hand Smoke Exposure: No Use of substances other than those prescribed or required for medical reasons: No Substance Use Type: Marijuana Currently Displaying Signs/Symptoms of Drug Intoxication Withdrawal: No Advance Directives: Yes Advance Directives on File: Yes Advance Directives Date on File: 10/02/24 Recently lost weight without trying: No service: No Current occupational status: disabled Meds Allergies Allergy/AdvReac Type Severity Reaction Status Date / Time No Known Allergies Allergy Verified 07/29/25 10:10 Active Medications: Current Medications Acetaminophen (Acetaminophen 325 Mg Tablet) 650 mg PO Q6H PRN PRN Reason: Pain, Mild 1-3,fever,headache Apixaban (Apixaban 5 Mg Tablet) 5 mg PO BID [facility] Last Admin: 07/30/25 08:39 Dose: 5 mg Atorvastatin Calcium (Atorvastatin Calcium 80 Mg Tablet) 80 mg PO BEDTIME [facility] Last Admin: 07/29/25 21:16 Dose: 80 mg Calcium Carbonate (Calcium Carbonate 750 Mg Tab.Chew) 750 mg PO Q4H PRN PRN Reason: Heartburn Carvedilol (Carvedilol 3.125 Mg Tablet) 3.125 mg PO BID [facility]; Protocol Last Admin: 07/30/25 08:39 Dose: 3.125 mg Clopidogrel Bisulfate (Clopidogrel Bisulfate 75 Mg Tablet) 75 mg PO DAILY [facility] Last Admin: 07/30/25 08:39 Dose: 75 mg Ezetimibe (Ezetimibe 10 Mg Tablet) 10 mg PO DAILY [facility] Last Admin: 07/30/25 08:39 Dose: 10 mg Empagliflozin (Empagliflozin 10 Mg Tablet) 10 mg PO DAILY [facility] Last Admin: 07/30/25 08:39 Dose: 10 mg Furosemide (Furosemide 40 Mg/4 Ml Vial) 40 mg IVPUSH BID@0900,1800 [facility]; Protocol Last Admin: 07/30/25 08:40 Dose: 40 mg Magnesium Hydroxide (Milk Of Magnesia 30 Ml Oral.Susp) 30 ml PO DAILY PRN PRN Reason: Constipation Melatonin (Melatonin 3 Mg Tablet) 6 mg PO BEDTIME PRN PRN Reason: Insomnia Ondansetron HCl (Ondansetron Hcl 4 Mg/2 Ml Vial) 4 mg IVPUSH Q8H PRN PRN Reason: Nausea and Vomiting Sacubitril/Valsartan (Sacubitril/Valsartan 1 Tab Tablet) 1 tab PO BID [facility]; Protocol Last Admin: 07/30/25 08:39 Dose: 1 tab Sodium Chloride (0.9 % Sodium Chloride Flush 3 Ml Syringe) 3 ml IVFLUSH QSHIFT [facility] Last Admin: 07/30/25 08:40 Dose: 3 ml Spironolactone (Spironolactone 25 Mg Tablet) 25 mg PO DAILY [facility]; Protocol Last Admin: 07/30/25 08:39 Dose: 25 mg Home Medications ?Medication ?Instructions ?Recorded ?Confirmed ?Last Taken ?Type ezetimibe 10 mg tablet 10 mg PO DAILY 08/18/20 07/29/25 07/29/25 History rosuvastatin 40 mg tablet 40 mg PO BEDTIME 08/18/20 07/29/25 07/28/25 History empagliflozin 10 mg tablet 10 mg PO DAILY 02/27/25 07/29/25 07/29/25 History (Jardiance) acetaminophen 650 mg 650 mg PO TID PRN pain 04/11/25 07/29/25 Unknown History tablet,extended release Physical Exam Vital Signs: Vital Signs: Last Vital Signs Temp 97.0 F 07/30/25 07:18 Pulse 81 07/30/25 07:18 Resp 16 07/30/25 07:18 BP 114/73 07/30/25 07:18 Pulse Ox 98 07/30/25 07:18 O2 Del Method Room Air 07/30/25 07:18 BMI result Body Mass Index 26.1 Const: General: cooperative, alert, awake and in distress mild and respiratory Nutritional Appearance: average body habitus Orientation/consciousness: patient oriented x3 HEENT: Head: Yes normocephalic and Yes atraumatic Neck: Neck: Yes trachea midline, Yes supple and Yes JVD Resp: Effort & Inspection: normal respiratory effort Auscultation: rales bilateral Cardio: Jugular venous distension: JVD Rate: regular rate Rhythm: abnormal rhythm with ectopic beats Heart sounds: S1 normal heart sound present, S2 normal heart sound present, no click, Gallop heart sound present S3 gallop, no murmurs and no rubs GI: Auscultation: normal bowel sounds Skin: General skin exam: no rashes or lesions noted Neuro: General: patient oriented x3 and no focal motor deficits Extrem: General: Yes no clubbing, cyanosis or edema Objective Labs and Meds 07/30/25 06:03 07/30/25 06:03 Lab results: Laboratory Results - last 24 hr 07/29/25 07/29/25 07/30/25 11:42 15:33 06:03 WBC 7.0 RBC 4.85 Hgb 14.7 Hct 43.4 MCV 89.5 MCH 30.3 MCHC 33.9 RDW 13.2 Plt Count 201 MPV 10.8 Absolute Nucleated RBC 0.000 Nucleated RBC % (auto) 0.0 Sodium 140 Potassium 4.0 Chloride 105 Carbon Dioxide 22 Anion Gap 17 BUN 17 H Creatinine 0.72 Estim Creat Clear Calc 90.5 Estimated GFR > 60 Random Glucose 94 Calcium 9.1 Magnesium 2.4 Troponin I High Sens 8.9 NT-Pro-B Natriuret Pep 5268.8 H EKGs on admission showed sinus tachycardia with V pacing. Subsequent EKGs shows Imaging Radiologist's impression: Impressions Chest X-Ray 07/29/25 10:25 IMPRESSION: Cardiomegaly and interstitial pulmonary edema. Electronically signed by: Isaac Eldridge MD 07/29/2025 10:38 AM EDT RP Assessment and Plan (1) Acute on chronic systolic CHF (congestive heart failure): Status: Acute Acute decompensated congestive heart failure patient with poor LV systolic function. Unclear etiology, could be due to over hydration with increase oral water intake as patient attributed to although could also be due to withdrawal of guideline based medical therapy with carvedilol which is not in his medication and/or cardiac arrhythmias with possible recurrent atrial flutter based on the rapid heart rate we saw on the monitor. I would continue IV diuresis with Lasix. Strict intake and output chart needs to be pursued. Carvedilol has been restarted this morning at a lower dose. I would also like to control his arrhythmias and would start him on IV amiodarone drip after a bolus to suppress his atrial as well as ventricular arrhythmias. Will review his records from [facility] if he had recent upgrade and also have his ICD checked with the company premium service representative. Continue with Entresto as well as Jardiance for now. Will continue to follow with you. Overall prognosis guarded. (2) Ventricular arrhythmia: Status: Acute Prior history of ventricular arrhythmias and EKGs now showing frequent PVCs and runs. Will start him on IV amiodarone drip as above. Continue full disclosure cardiac monitoring. Continue check electrolytes including potassium and magnesium. Will follow with you. Greater than 40 minutes was spent in managing his care. Procedures Date of Service Date of Service: 07/30/25
[2025-07-30 11:08] VITALS: BP 107/77; PULSE 95; RESP 14; TEMP 36.1; O2SAT 97
--- NOTE | 2025-07-30 12:00 | MHC.CM.PN ---
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 PCP/HCP ON FILE VERIFIED.
[2025-07-30 15:12] VITALS: BP 115/73; PULSE 101; RESP 18; TEMP 36.1; O2SAT 97
[2025-07-30] MEDS: Amiodarone/Dextrose 150 MG/100 ML PLAST..BAG 600 MG IV (17:46)
[2025-07-30 19:59] VITALS: BP 112/74; PULSE 87; RESP 16; TEMP 36.4; O2SAT 96
[2025-07-31] VITALS (7 sets, daily range): BP systolic 90–113; BP diastolic 60–89; PULSE 72–112; RESP 16–19; TEMP 36.2–37.1; O2SAT 96–98; BMI 26.6
[2025-07-31 07:10] LABS: Anion Gap 13 (12-20); Blood Urea Nitrogen 20 mg/dL (9-16); Calcium 9.4 mg/dL (8.4-10.2); Carbon Dioxide 26 mmol/L (22-29); Chloride 103 mmol/L (96-108); Creatinine Clr Calc Pharmacy 82.5; Estimated Glomerular Filt Rate > 60; Potassium 4.0 mmol/L (3.3-5.1); Sodium 138 mmol/L (135-145)
[2025-07-31] MEDS: Furosemide 40 MG/4 ML VIAL IVPUSH (09:12)
--- NOTE | 2025-07-31 09:42 | MHC.CM.PN ---
Addendum entered by Alise Benitez RN 07/31/25 11:43: CURRENT PLAN IS FOR PATIENT TO REMAIN TWO MORE DAYS Original Note: PER REVIEW OF CHART, PATIENT STILL REQUIRING TELE MONITORING. IV AMIODARONE INFUSING. CASE MANAGEMENT FOLLOWING FOR UPDATES TO DC PLAN. CURRENT PLAN IS HOME WITH RESUMPTION OF CUTTING PRESSMAN SERVICES.
--- NOTE | 2025-07-31 11:45 | PM.PNCARD ---
Subjective Subjective Date of Service: 07/31/25 Principal diagnosis: Tachycardia, heart failure Interval history: Patient had recurrent wide complex tachycardia last night which was sustained with symptoms of chest pain and rapid heart rate. He had not received his IV amiodarone till late. Since starting IV amiodarone he has not had significant arrhythmias. He is feeling a lot better. His shortness of breath has significantly improved. Denies any lightheadedness, syncope. Review of Systems Constitutional: Reports no additional constitutional complaints Cardiovascular: Reports chest pain at rest, Reports rapid heart rate, Denies lightheadedness, Denies Loss of Consciousness, Reports palpitations and Denies orthopnea Respiratory: Reports no additional respiratory complaints Musculoskeletal: Reports no additional musculoskeletal complaints Skin/Breast: Reports system reviewed and no additional complaints, except as docu Endocrine: Reports palpitations Physical Exam Vital Signs: Last Vital Signs Temp 97.1 F 07/31/25 11:03 Pulse 80 07/31/25 11:03 Resp 18 07/31/25 11:03 BP 103/73 07/31/25 11:03 Pulse Ox 97 07/31/25 11:03 O2 Del Method Room Air 07/31/25 11:03 BMI result Body Mass Index 26.6 Const General: cooperative, alert, awake and in distress mild and respiratory Nutritional Appearance: average body habitus Orientation/consciousness: patient oriented x3 HEENT Head: Yes normocephalic and Yes atraumatic Neck Neck: Yes trachea midline, Yes supple and Yes JVD Resp Effort & Inspection: normal respiratory effort Auscultation: clear to auscultation bilaterally Cardio Jugular venous distension: JVD Rate: regular rate Rhythm: abnormal rhythm with ectopic beats Heart sounds: S1 normal heart sound present, S2 normal heart sound present, no click, Gallop heart sound present S3 gallop, no murmurs and no rubs GI Auscultation: normal bowel sounds Skin General skin exam: no rashes or lesions noted Neuro General: patient oriented x3 and no focal motor deficits Extrem General: Yes no clubbing, cyanosis or edema Objective Labs and Meds 07/30/25 06:03 07/31/25 06:33 Lab results: Laboratory Results - last 24 hr 07/31/25 07/31/25 06:33 06:35 Hold Purple Top SEE NOTE Sodium 138 Potassium 4.0 Chloride 103 Carbon Dioxide 26 Anion Gap 13 BUN 20 H Creatinine 0.79 Estim Creat Clear Calc 82.5 Estimated GFR > 60 Random Glucose 128 H Calcium 9.4 Progress Note: A&P Assessment and plan (1) Acute on chronic systolic CHF (congestive heart failure): Status: Acute Assessment and Plan: Decompensated congestive heart failure doing extremely well with diuresis. We discussed about management of congestive heart failure with him in the presence of his daughter. Advised to avoid significant fluid overload. Will controlled his arrhythmias. Will uptitrate his carvedilol. Continue Entresto, spironolactone and Jardiance. Can switch to oral loop diuretics. Ambulate as tolerated. (2) SVT (supraventricular tachycardia): Status: Acute Assessment and Plan: By device telemetry appears that he has SVT. Although can not rule out atrial flutter. Has tolerated amiodarone drip well. After 24 hour completion of drip can switch to oral amiodarone 400 mg b.i.d. loading to suppress his cardiac arrhythmias. I think this might be the reason for his decompensation. Will continue monitor by device telemetry. Continue 1 more day of full disclosure cardiac monitoring. Continue full oral anticoagulation. Will follow with you Time Spent With Patient Time: Total time managing care of this patient today ____ minutes. Progress Note: Quality Stroke Does the patient have a stroke diagnosis?: No Procedures Date of Service Date of Service: 07/31/25
--- NOTE | 2025-07-31 15:31 | P.PNIM_ITS ---
Subjective Subjective Date of Service: 07/31/25 Interval History: Pt with prolonged episode of wide complex tachycardia yesterday, likely SVT Pt complained of chest pain and palpitations during episode No subsequent arrhythmias noted after pt placed on amiodarone drip Today pt doing well Has been up and out of bed to the bathroom without SOB Breathing improved Will be transitioned from amiodarone drip later in the day Review of Systems Review of Systems: Yes all other systems are reviewed and are negative Physical Exam 2 Exam: Exam: General: AOx3, no acute distress Resp: CTA bilaterally CVS: S1, S2, occasional ectopic beat GI: +BS, NT, no distention Skin: Warm, dry Neuro: Cranial nerves II-XII grossly intact bilaterally. Motor grossly intact bilaterally Extremities: No edema Psych: Appropriate affect Vital Signs: Vital Signs: Last Vital Signs Temp 97.6 F 07/31/25 15:08 Pulse 89 07/31/25 15:08 Resp 17 07/31/25 15:08 BP 113/89 07/31/25 15:08 Pulse Ox 97 07/31/25 15:08 O2 Del Method Room Air 07/31/25 15:08 BMI result Body Mass Index 26.6 Objective Data Active Medications Acetaminophen (Acetaminophen 325 Mg Tablet) 650 mg PO Q6H PRN PRN Reason: Pain, Mild 1-3,fever,headache Apixaban (Apixaban 5 Mg Tablet) 5 mg PO BID [facility] Last Admin: 07/31/25 09:12 Dose: 5 mg Documented By: ALMITA Atorvastatin Calcium (Atorvastatin Calcium 80 Mg Tablet) 80 mg PO BEDTIME [facility] Last Admin: 07/30/25 20:15 Dose: 80 mg Documented By: VIC Calcium Carbonate (Calcium Carbonate 750 Mg Tab.Chew) 750 mg PO Q4H PRN PRN Reason: Heartburn Carvedilol (Carvedilol 3.125 Mg Tablet) 3.125 mg PO BID [facility]; Protocol Last Admin: 07/31/25 09:50 Dose: Not Given Documented By: ALMITA Non-Admin Reason: Physician Held Med Clopidogrel Bisulfate (Clopidogrel Bisulfate 75 Mg Tablet) 75 mg PO DAILY [facility] Last Admin: 07/31/25 09:12 Dose: 75 mg Documented By: ALMITA Ezetimibe (Ezetimibe 10 Mg Tablet) 10 mg PO DAILY [facility] Last Admin: 07/31/25 09:12 Dose: 10 mg Documented By: ALMITA Empagliflozin (Empagliflozin 10 Mg Tablet) 10 mg PO DAILY [facility] Last Admin: 07/31/25 09:12 Dose: 10 mg Documented By: ALMITA Furosemide (Furosemide 40 Mg/4 Ml Vial) 40 mg IVPUSH BID@0900,1800 [facility]; Protocol Last Admin: 07/31/25 09:12 Dose: 40 mg Documented By: ALMITA Amiodarone HCl 900 mg/ Sodium (Chloride) 518 mls @ 0 mls/hr IVCONT .Q0M [facility]; Protocol Last Infusion: 07/31/25 00:27 Dose: 0.5 mg/min, 17.27 mls/hr Documented By: VIC Magnesium Hydroxide (Milk Of Magnesia 30 Ml Oral.Susp) 30 ml PO DAILY PRN PRN Reason: Constipation Melatonin (Melatonin 3 Mg Tablet) 6 mg PO BEDTIME PRN PRN Reason: Insomnia Ondansetron HCl (Ondansetron Hcl 4 Mg/2 Ml Vial) 4 mg IVPUSH Q8H PRN PRN Reason: Nausea and Vomiting Sacubitril/Valsartan (Sacubitril/Valsartan 1 Tab Tablet) 1 tab PO BID [facility]; Protocol Last Admin: 07/31/25 09:50 Dose: Not Given Documented By: ALMITA Non-Admin Reason: Physician Held Med Sodium Chloride (0.9 % Sodium Chloride Flush 3 Ml Syringe) 3 ml IVFLUSH QSHIFT [facility] Last Admin: 07/31/25 09:50 Dose: Not Given Documented By: ALMITA Non-Admin Reason: IV Running Spironolactone (Spironolactone 25 Mg Tablet) 25 mg PO DAILY [facility]; Protocol Last Admin: 07/31/25 09:12 Dose: 25 mg Documented By: ALMITA Labs 07/30/25 06:03 07/31/25 06:33 Labs: Laboratory Results - last 24 hr 07/31/25 07/31/25 06:33 06:35 Hold Purple Top SEE NOTE Anion Gap 13 Estim Creat Clear Calc 82.5 Estimated GFR > 60 Random Glucose 128 H Calcium 9.4 Assessment and Plan (1) Acute on chronic systolic CHF (congestive heart failure): Status: Acute (2) Ventricular arrhythmia: Status: Acute Plan Pt is a 70-year-old French-speaking male with a PMH significant for?HTN, SVT, HFrEF with LVEF 10%, nonischemic cardiomyopathy, ventricular arrhythmia on amiodarone and with ICD in place, CAD s/p RCA and LAD stenting, and atrial flutter s/p ablation on Eliquis who presents to the ED with?palpitations, chest pain, fatigue, and SOB for the past few days. Pt is admitted to the hospital for treatment and further evaluation of acute decompensated HFrEF exacerbation. Acute decompensated HFrEF exacerbation Pt with increased SOB and MOSQUEDA, elevated pro BNP, CXR showing pulmonary edema Likely secondary to cardiac arrhythmias as noted below Stop Lasix 40mg IV bid, switch to Lasix 40mg tomorrow Continue carvedilol, Entresto, spironolactone, Jardiance Echo 04/09/2025 showed severely increased left ventricular cavity size with LVEF 10-15% Follow lytes, mag, strict I/O Daily weights, low-salt diet Cardiology following Monitor on telemetry Tachycardia: SVT vs AFlutter Has hx of paroxysmal AFib/Aflutter s/p recent ablation and ICD replacement 06/01/2025 Has been noted to to have runs of tachycardia and possible ventricular arrhythmia on 07/30 with chest pain, concerning for SVT vs atrial flutter Cardiology recommends amiodarone drip times 24 hours, transitioned to amiodarone 400 mg b.i.d. after Increase carvedilol to 6.25 mg b.i.d., continue Eliquis CAD Continue clopidogrel, ezetimibe, rosuvastatin Full Code DVT Prophylaxis: On Eliquis Pt will require continued hospitalization for treatment of acute decompensated CHF exacerbation in the setting of cardiac arrhythmias. Pt will be transitioned from amiodarone drip later this evening to oral amiodarone, and will require additional day of cardiac monitoring. Pt should be able to be discharged on 08/02. Quality Stroke Does the patient have a stroke diagnosis?: No VTE Prior VTE?: No VTE Risk Level:: Medical - moderate - high VTE Device Contraindication: Treatment Not Indicated VTE Drug Contraindication: N/A - Med Ordered
[2025-07-31] MEDS: Sacubitril/Valsartan 24/26 1 TAB TABLET PO (20:53)
[2025-07-31] MEDS: 0.9 % Sodium Chloride Flush 3 ML SYRINGE IVFLUSH (20:54)
[2025-08-01 04:00] VITALS: BP 94/61; PULSE 92; RESP 16; TEMP 36.7; O2SAT 95
[2025-08-01 06:00] VITALS: BMI 26.7
[2025-08-01 06:58] LABS: Hematocrit 43.6 % (42.0-52.0); Hemoglobin 15.1 g/dl (14.0-18.0); Mean Corpuscular HGB Conc 34.6 g/dl (31.0-36.0); Mean Corpuscular Hemoglobin 30.4 pg (27.0-33.0); Mean Corpuscular Volume 87.7 fL (80.0-98.0); NRBC Abs Auto 0.000 X10*3/uL (0.0-0.012); NRBC Pct Auto 0.0 /100WBC (0.0-0.2); Platelet Count 225 X10*3/uL (160-400); Red Blood Count 4.97 X10*6/uL (4.60-5.80); White Blood Count 8.5 X10*3/uL (4.8-10.8)
[2025-08-01 07:13] LABS: Anion Gap 11 (12-20); Blood Urea Nitrogen 21 mg/dL (9-16); Calcium 9.1 mg/dL (8.4-10.2); Carbon Dioxide 26 mmol/L (22-29); Chloride 103 mmol/L (96-108); Creatinine Clr Calc Pharmacy 86.9; Estimated Glomerular Filt Rate > 60; Potassium 4.0 mmol/L (3.3-5.1); Sodium 136 mmol/L (135-145)
[2025-08-01 07:41] VITALS: BP 98/71; PULSE 81; RESP 20; TEMP 36; O2SAT 96
[2025-08-01] MEDS: Sacubitril/Valsartan 24/26 1 TAB TABLET PO (08:39)
[2025-08-01] MEDS: 0.9 % Sodium Chloride Flush 3 ML SYRINGE IVFLUSH (08:41)
[2025-08-01 10:06] VITALS: BP 100/68; PULSE 92; RESP 18; TEMP 36; O2SAT 98
--- NOTE | 2025-08-01 10:50 | PM.PNCARD ---
Subjective Subjective Date of Service: 08/01/25 Principal diagnosis: Tachycardia, heart failure Interval history: Patient doing well. Overnight no significant arrhythmias. Treadmill slightly higher but still in sinus rhythm. Pacing ventricularly. Overall breathing is better. Denies any palpitations, lightheadedness, chest pain. Review of Systems Review of Systems Yes all other systems are reviewed and are negative Physical Exam Vital Signs: Last Vital Signs Temp 96.8 F 08/01/25 10:06 Pulse 92 08/01/25 10:06 Resp 18 08/01/25 10:06 BP 100/68 08/01/25 10:06 Pulse Ox 98 08/01/25 10:06 O2 Del Method Room Air 08/01/25 10:06 BMI result Body Mass Index 26.7 Const General: cooperative, alert, awake and in distress mild and respiratory Nutritional Appearance: average body habitus Orientation/consciousness: patient oriented x3 HEENT Head: Yes normocephalic and Yes atraumatic Neck Neck: Yes trachea midline, Yes supple and Yes JVD Resp Effort & Inspection: normal respiratory effort Auscultation: clear to auscultation bilaterally Cardio Jugular venous distension: JVD Rate: regular rate Rhythm: abnormal rhythm with ectopic beats Heart sounds: S1 normal heart sound present, S2 normal heart sound present, no click, Gallop heart sound present S3 gallop, no murmurs and no rubs GI Auscultation: normal bowel sounds Skin General skin exam: no rashes or lesions noted Neuro General: patient oriented x3 and no focal motor deficits Extrem General: Yes no clubbing, cyanosis or edema Objective Labs and Meds 08/01/25 06:38 08/01/25 06:38 Lab results: Laboratory Results - last 24 hr 08/01/25 06:38 WBC 8.5 RBC 4.97 Hgb 15.1 Hct 43.6 MCV 87.7 MCH 30.4 MCHC 34.6 RDW 13.2 Plt Count 225 MPV 10.8 Absolute Nucleated RBC 0.000 Nucleated RBC % (auto) 0.0 Sodium 136 Potassium 4.0 Chloride 103 Carbon Dioxide 26 Anion Gap 11 L BUN 21 H Creatinine 0.75 Estim Creat Clear Calc 86.9 Estimated GFR > 60 Random Glucose 103 Calcium 9.1 Progress Note: A&P Assessment and plan (1) Acute on chronic systolic CHF (congestive heart failure): Status: Acute Assessment and Plan: Acute systolic heart failure on presentation doing well. Advise limited oral fluid intake up to 1.5 L. Importance of controlling arrhythmias was discussed. Avoidance of stimulants was discussed. Continue current neurohormonal modulation with carvedilol, Entresto, spironolactone and Jardiance. Continue p.o. diuretic therapy. Additional diuretic therapy as need be. Will follow up in the clinic in 1-2 weeks. (2) SVT (supraventricular tachycardia): Status: Acute Assessment and Plan: Supraventricular tachycardia/atrial flutter. Currently suppressed on amiodarone therapy. Continue amiodarone loading 400 mg b.i.d. for 2 weeks followed by 200 mg daily. Will need outpatient follow-up and follow up with device telemetry. Continue full oral anticoagulation, currently on Eliquis 5 mg b.i.d.. Semi annual renal function test should be pursued. Avoidance of stimulants was discussed. Will follow up in the clinic in 1-2 weeks. Thank you for allowing me to partake in his care Time Spent With Patient Time: Total time managing care of this patient today ____ minutes. Progress Note: Quality Stroke Does the patient have a stroke diagnosis?: No Procedures Date of Service Date of Service: 08/01/25
[2025-08-01 11:40] VITALS: BP 105/75; PULSE 97; RESP 20; TEMP 36.3; O2SAT 97
--- NOTE | 2025-08-01 12:16 | PM.DS ---
DS: Providers Provider Date of Service: 08/01/25 Date of admission: 07/29/25 12:18 Date of discharge: 08/01/25 Primary care physician: Imelda Sepulveda MD Consults: 07/29/25 14:48 Consult to Cardiology Routine Consulting Provider: [facility] [place] [facility] Reason for consultation: HFrEF exacerbation; Tachy DS: Diagnosis Discharge Diagnosis (1) Acute on chronic systolic CHF (congestive heart failure): Status: Acute (2) SVT (supraventricular tachycardia): Status: Acute DS: Summary Hospital Course Hospital Course: From admission HPI: Date of Service: 07/29/25 Attending physician on admission: Cristobal Ash Chief Complaint: Palpitations Pt is a 70-year-old Kosovan-speaking male with a PMH significant for?HTN, SVT, HFrEF with LVEF 10%, nonischemic cardiomyopathy, ventricular arrhythmia on amiodarone and with ICD in place, CAD s/p RCA and LAD stenting, and atrial flutter s/p ablation on Eliquis who presents to the ED with?palpitations, chest pain, fatigue, and SOB for the past few days. Pt reports symptoms began yesterday when he woke up and felt much more fatigued than normal. Reports has been experiencing central, substernal chest pain that is worse with deep inspiration. Mild nonproductive cough slightly worse than at baseline. Is neither sharp, stabbing, or a pressure/weight. Denies lower leg edema or orthopnea. Pt reports has been compliant with all of his home medications. Pt lives alone and uses a walker at baseline. No fever or chills. Denies nausea, vomiting, diarrhea, or abdominal pain. In the ED pt's vitals were significant for tachypnea up to 30, otherwise stable. Labs were significant for NT pro BNP 5974.1 otherwise grossly unremarkable. Serial troponins flat at 9.0 and 8.9. CXR showed cardiomegaly and interstitial pulmonary edema. EKG demonstrated atrial sensed ventricular paced rhythm without significant ischemic changes from prior. Pt was treated in the ED with Lasix 20mg IV. Pt is admitted to the hospital for treatment and further evaluation of acute decompensated HFrEF exacerbation. Hospital course: Pt was admitted to the hospital for acute decompensated HFrEF exacerbation and initially treated with IV diuretics to good effect with a cumulative net negative of around 4L. Pt was seen and evaluated by Cardiology who followed patient's progress carefully. Hospital stay was complicated by episodes of symptomatic supraventricular tachycardia/atrial flutter; pt was started on carvedilol 6.25 mg b.i.d. and amiodarone drip for 24 hours and then transitioned to amiodarone 400 mg b.i.d. p.o.. Pt tolerated treatment well and no additional episodes of arrhythmias noted post amiodarone drip. At time of discharge pt was back to baseline and able to ambulate in the hallways without SOB or difficulty breathing. Clinically appeared euvolemic without any signs of fluid overload. CHF exacerbation thought likely secondary to supraventricular tachycardia/atrial flutter. Pt will be discharged on amiodarone loading dose of 400 mg b.i.d. x2 followed by a maintenance dose of 200 mg daily. Pt should continue with carvedilol, Entresto, spironolactone, Jardiance, and Xarelto. He should follow up closely with cardiology clinic for monitoring of medication changes, as well as for device telemetry. Pt should avoid stimulants to help control arrhythmias, and limited oral fluid intake to 1.5 L. Pt should continue with all other home medications. Time Attestation Discharge Coordination Time (in mins): 35 Quality: Safe Use of Opioids Does Pt have an Active Cancer Diagnosis on the Problem List?: No Quality: Stroke Does the patient have a stroke diagnosis?: No Physical Exam Exam: Exam: General: AOx3, no acute distress Resp: CTA bilaterally. No crackeles CVS: S1, S2 GI: +BS, NT, no distention Skin: Warm, dry Neuro: Cranial nerves II-XII grossly intact bilaterally. Motor grossly intact bilaterally Extremities: No edema Psych: Appropriate affect Vital Signs: Vital Signs: Last Vital Signs Temp 97.3 F 08/01/25 11:40 Pulse 97 08/01/25 11:40 Resp 20 08/01/25 11:40 BP 105/75 08/01/25 11:40 Pulse Ox 97 08/01/25 11:40 O2 Del Method Room Air 08/01/25 11:40 BMI result Body Mass Index 26.7 DS: Data Data Completed and Pending Completed studies during hospitalization [Text1]: Procedures Tenriism of Cardiac Rhythm, Single (04/11/25) Labs on day of discharge: Laboratory Results - last 24 hr 08/01/25 06:38 WBC 8.5 RBC 4.97 Hgb 15.1 Hct 43.6 MCV 87.7 MCH 30.4 MCHC 34.6 RDW 13.2 Plt Count 225 MPV 10.8 Absolute Nucleated RBC 0.000 Nucleated RBC % (auto) 0.0 Sodium 136 Potassium 4.0 Chloride 103 Carbon Dioxide 26 Anion Gap 11 L BUN 21 H Creatinine 0.75 Estim Creat Clear Calc 86.9 Estimated GFR > 60 Random Glucose 103 Calcium 9.1 Discharge Plan Discharge Anticipated Discharge Date/Time: 08/01/25 11:35 Patient Disposition: Home, Self-Care Discharge Diagnosis: Acute decompensated HFrEF exacerbation secondary to ventricular arrhythmia Referrals: Imelda Sepulveda MD [Primary Care Provider, Internal Medicine] - 1 Week Discharge Medications: New amiodarone 200 mg tablet 200 mg PO DAILY Qty: 90 0RF Rx Instructions: You will require an initial loading dose: Take 2 tablets (400mg total) twice a day for the next two weeks, ending on 08/14. Staring on 08/15 take one tablet daily as a maintenance dose carvedilol 6.25 mg tablet 6.25 mg PO BID Qty: 180 0RF Rx Instructions: must administer with a meal/food. Take one tablet twice a day Continued spironolactone 25 mg tablet 25 mg PO DAILY 90 Days Qty: 90 3RF clopidogrel [Plavix] 75 mg tablet 75 mg PO DAILY Qty: 90 3RF furosemide 40 mg tablet 40 mg PO DAILY Qty: 30 5RF Entresto 24-26 mg tablet 1 tab PO BID Qty: 180 3RF Jardiance 10 mg tablet 10 mg PO DAILY acetaminophen 650 mg tablet extended release 650 mg PO TID PRN (Reason: pain) rosuvastatin 40 mg tablet 40 mg PO BEDTIME ezetimibe 10 mg tablet 10 mg PO DAILY Eliquis 5 mg tablet 5 mg PO BID Qty: 60 5RF Rx Instructions: New Discharge Orders: Discharge Order (Routine); Ordered 08/01/25 Ordered By: Fadumo Gilliland Activity on Discharge: As tolerated Stand Alone Forms: Patient Portal Discharge page Print Language: Other Care Plan Goals: See below Health Concerns: Acute CHF exacerbation Atrial flutter Ventricular arrhythmia/supraventricular tachycardia Plan of Treatment: You were admitted to the hospital for acute decompensated CHF exacerbation and started on IV diuretics to good effect. Hospital stay was complicated as you were noted to have episodes of supraventricular tachycardia and/or atrial flutter, and you were started on an amiodarone drip. You were experiencing SOB and chest pain during these episodes. You responded well to amiodarone therapy and were transitioned to oral amiodarone. You were seen and evaluated by Cardiology who monitored your progress closely. You were additionally restarted on carvedilol which was increased to 6.25 mg twice a day. At time of discharge your heart rate and rhythm where well-controlled on current therapies, and you were no longer experiencing SOB or difficulty breathing with ambulation. You will need to follow up closely with Cardiology for both monitoring your current change in therapies, as well as with close follow up for your device monitoring. -- you will be restarted on amiodarone. You will initially have to take a higher loading dose before transitioning to a regular maintenance dose. You should start by taking amiodarone 400 mg (2 tablets) twice a day for the next 2 weeks, ending 08/14. On 08/15 you will start taking amiodarone 200 mg (1 tablet) daily. -- you will be started on carvedilol 3.25 mg twice a day -- you should continue your spironolactone, Lasix, Xarelto, and Entresto -- avoid stimulants such as caffeine in order to control heart arrhythmias -- follow up with Cardiology in 1-2 weeks -- follow up with PCP in 1 week for routine post-hospitalization visit Assessment: See discharge summary
--- NOTE | 2025-08-01 16:02 | MHC.CM.PN ---
POST DISCHARGE NOTE - PATIENT IS DC HOME -SELF CARE RN AWARE OF PLAN
== END 2025-08-01 12:48 | disposition home or self-care (01) | DRG 291 ==
LOC: HO.ED 11:36 → HO.EDOVER 12:27 → HO.IMC 22:27
PROVIDERS: Admitting Provider Student in an Organized Health Care Education/Training Program; Emergency Provider Emergency Medicine; PCP Internal Medicine; Visit Provider Student in an Organized Health Care Education/Training Program
DX: I11.0 Hypertensive heart disease with heart failure (principal); I50.23 Acute on chronic systolic (congestive) heart failure; I47.10 Supraventricular tachycardia, unspecified; I42.8 Other cardiomyopathies; I49.3 Ventricular premature depolarization; I25.10 Atherosclerotic heart disease of native coronary artery without angina pectoris; I48.0 Paroxysmal atrial fibrillation; Z95.810 Presence of automatic (implantable) cardiac defibrillator; Z95.5 Presence of coronary angioplasty implant and graft; Z79.01 Long term (current) use of anticoagulants; Z79.899 Other long term (current) drug therapy
CPT/HCPCS: 36415; 71045; 80048; 80053; 83735; 83880; 84443; 84484; 85025; 85027; 93005; 99285; J0282; J0283; J1938

== ENCOUNTER → 2025-07-29 09:22 | Outpatient (BNV) | payer OTHER, SELFPAY | PROVIDERS: Admitting Provider Student in an Organized Health Care Education/Training Program; Emergency Provider Emergency Medicine; PCP Internal Medicine; Visit Provider Internal Medicine Cardiovascular Disease | DX: R94.31 Abnormal electrocardiogram [ECG] [EKG] (principal); Z95.0 Presence of cardiac pacemaker | CPT/HCPCS: 93010 ==

== ENCOUNTER → 2025-07-29 09:29 | Outpatient (BNV) | payer OTHER, SELFPAY | PROVIDERS: Emergency Provider Emergency Medicine; PCP Internal Medicine; Visit Provider Radiology Diagnostic Radiology | DX: I51.7 Cardiomegaly (principal); J81.1 Chronic pulmonary edema | CPT/HCPCS: 71045 ==

== ENCOUNTER 2025-07-29 12:18 | Outpatient (BNV) | payer OTHER, SELFPAY | END 2025-07-30 06:22 | PROVIDERS: Admitting Provider Student in an Organized Health Care Education/Training Program; Emergency Provider Emergency Medicine; PCP Internal Medicine; Visit Provider Internal Medicine Cardiovascular Disease | DX: I49.3 Ventricular premature depolarization (principal); Z95.0 Presence of cardiac pacemaker | CPT/HCPCS: 93010 ==

== ENCOUNTER → 2025-07-29 12:18 | Outpatient (BNV) | payer OTHER, SELFPAY | PROVIDERS: Admitting Provider Student in an Organized Health Care Education/Training Program; Emergency Provider Emergency Medicine; PCP Internal Medicine; Visit Provider Internal Medicine Cardiovascular Disease | DX: I50.23 Acute on chronic systolic (congestive) heart failure (principal); I49.9 Cardiac arrhythmia, unspecified | CPT/HCPCS: 99223 ==

== ENCOUNTER → 2025-07-29 12:18 | Outpatient (BNV) | payer OTHER, SELFPAY | PROVIDERS: Admitting Provider Student in an Organized Health Care Education/Training Program; Emergency Provider Emergency Medicine; PCP Internal Medicine; Visit Provider Student in an Organized Health Care Education/Training Program | DX: I50.23 Acute on chronic systolic (congestive) heart failure (principal); I49.9 Cardiac arrhythmia, unspecified | CPT/HCPCS: 99223; 99232; 99233 ==

== ENCOUNTER 2025-08-06 01:25 | Inpatient (IN) | payer OTHER, SELFPAY ==
--- OUTSIDE RECORDS SUMMARY | 2024-11-16 05:30 | XMS_ITS ---
Author Organization [facility] Address [address] [place] [address] Care Team Providers Care Infant Caregiver Name Role Phone Imelda Sepulveda Primary Care Provider Unavailab Fabio Amin Unavailable [phone] Medications Medication SIG (Take, Route, Frequency, Duration) [...] No Encounters Encounter Location Date Provider Diagnosis [facility] [address] [place] [address] 11/16/2024 Fabio Silverio Plan Of Treatment No Information Progress Notes * Sayda SIMMSOB:[birth year] (70 yo M)Acc No.[id number]:11/16/2024 Progress Notes Patient: Trenton ORANTES Provider: Jina Silverio DPM :1955 A ge:69 Y S ex:Male Date:11/16/2024 Address:[address] [place] [address] [id number] Pcp:Imelda Sepulveda Subjective: * Chief Complaints: * [...] enies. C ardiovascular: Pacemaker d enies. M SPANISH PROFESSOR d enies. W PW d enies. C [...] 0 11/16/2024 Generated for Jackie guerrero/Carter/Ronaldo on: 02:09 AM EDT
[2025-08-06] VITALS (13 sets, daily range): BP systolic 96–144; BP diastolic 56–84; PULSE 58–96; RESP 13–26; TEMP 36–37.1; O2SAT 96–98; BMI 29.0
--- NOTE | 2025-08-06 | ECG_ITS ---
Test Reason : CP Blood Pressure : */* mmHG Vent. Rate : 93 BPM Atrial Rate : 93 BPM P-R Int : 204 ms QRS Dur : 148 ms QT Int : 422 ms P-R-T Axes : 65 -87 96 degrees QTcB Int : 524 ms Atrial-sensed ventricular-paced rhythm Abnormal ECG When compared with ECG of 30-Jul-2025 06:22, Vent. rate has decreased by 36 bpm Referred By: Generic ED Physician Electronically Signed By: Zuhair Hernandes
--- NOTE | ~2025-08-06 | XR_ITS ---
CLINICAL HISTORY: chest pain 1 view chest x-ray Comparison: CR/SR - XR CHEST 1 VIEW - 07/29/25 10:25 EDT Findings: Perihilar edema or infiltrates. Cardiac silhouette is enlarged. No acute fracture. Left anterior chest wall pacemaker with intact appearing leads. IMPRESSION: Perihilar edema or infiltrates. This document has been electronically signed by: Ralph Sim MD, PHD on 08/06/2025 02:38:22
[2025-08-06 01:43] LABS: MANUAL DIFF FLAG NO
[2025-08-06 01:46] LABS: Hematocrit 39.3 % (42.0-52.0); Hemoglobin 13.2 g/dl (14.0-18.0); Imm Gran Abs Auto 0.03 X10*3/uL (0.00-0.03); Imm Gran Pct Auto 0.3 % (0.0-0.4); Lymphocytes Absolute Auto 2.1 X10*3/uL (1.2-4.9); Mean Corpuscular HGB Conc 33.6 g/dl (31.0-36.0); Mean Corpuscular Hemoglobin 30.3 pg (27.0-33.0); Mean Corpuscular Volume 90.1 fL (80.0-98.0); NRBC Abs Auto 0.000 X10*3/uL (0.0-0.012); NRBC Pct Auto 0.0 /100WBC (0.0-0.2); Platelet Count 256 X10*3/uL (160-400); Red Blood Count 4.36 X10*6/uL (4.60-5.80); White Blood Count 9.3 X10*3/uL (4.8-10.8)
[2025-08-06 02:03] LABS: NT Pro B Type Natriuretic Pept 11422.2 pg/mL (<300); Troponin-I High Sensitivity 19.0 ng/L (<3.5-35.0)
[2025-08-06 02:06] LABS: Alanine Aminotransferase 20 U/L (0-40); Albumin Level 4.3 g/dL (3.5-5.0); Anion Gap 16 (12-20); Aspartate Amino Transferase 33 U/L (5-37); Blood Urea Nitrogen 18 mg/dL (9-16); Calcium 8.6 mg/dL (8.4-10.2); Carbon Dioxide 20 mmol/L (22-29); Chloride 101 mmol/L (96-108); Creatinine Clr Calc Pharmacy 75.2; Estimated Glomerular Filt Rate > 60; Potassium 4.2 mmol/L (3.3-5.1); Sodium 133 mmol/L (135-145); Total Protein 6.9 g/dL (6.5-8.0)
[2025-08-06 02:10] LABS: COVID-19 Test Negative (Negative); IDNOW Serial# 55D5AD1C; IDNOW Serial# 6674DD1D; Influenza B2 Negative (Negative)
--- OUTSIDE RECORDS SUMMARY | 2025-08-06 02:10 | XMS_ITS | Patient Health Record ---
Author Organization [facility] Address [address] [place] [address] Care Team Providers Care Stenotype Operator Name Role Phone Imelda Sepulveda Primary Care Provider Unavailab Fabio Amin Unavailable [phone] Reason For Referral No Information Medications Medication [...] No Encounters Encounter Location Date Provider Diagnosis [facility] [address] [place] [address] [facility] [address] [place] [address] 11/15/2024 Fabio Silverio Plan Of Treatment No Information Insurance Providers Payer Name Payer Address Payer Phone Subscriber Number Group Number Insured Name Patient Relationship to Insured Coverage Start Date Coverage End Date [facility] [employer] Claims [address] [place] [id number] Trenton Dasilva Self - patient is the insured Medical (General) History Medical History History ICD Code Heart disease High Blood Pressure Stroke Surgical History Surgery Date(Month/Year) cardiac pacemeker
[2025-08-06 03:05] LABS: Alkaline Phosphatase 71 U/L (39-117)
--- NOTE | 2025-08-06 04:54 | ED.CHESTPAIN ---
HPI - Chest Pain General Chief Complaint: Chest Pain Stated Complaint: CP Time Seen by Provider: 08/06/25 04:54 Related Data Home Medications ?Medication ?Instructions ?Recorded ?Confirmed ezetimibe 10 mg tablet 10 mg PO DAILY 08/18/20 07/29/25 rosuvastatin 40 mg tablet 40 mg PO BEDTIME 08/18/20 07/29/25 empagliflozin 10 mg tablet 10 mg PO DAILY 02/27/25 07/29/25 (Jardiance) acetaminophen 650 mg 650 mg PO TID PRN pain 04/11/25 07/29/25 tablet,extended release Previous Rx's ?Medication ?Instructions ?Recorded spironolactone 25 mg tablet 25 mg PO DAILY 90 days #90 tabs 04/20/23 apixaban 5 mg tablet (Eliquis) 5 mg PO BID #60 tabs 03/28/25 clopidogrel 75 mg tablet (Plavix) 75 mg PO DAILY #90 tabs 05/02/25 furosemide 40 mg tablet 40 mg PO DAILY #30 tabs 05/02/25 sacubitril 24 mg-valsartan 26 mg 1 tab PO BID #180 tabs 06/18/25 tablet (Entresto) amiodarone 200 mg tablet 200 mg PO DAILY #90 tabs 08/01/25 carvedilol 6.25 mg tablet 6.25 mg PO BID #180 tabs 08/01/25 Allergies Allergy/AdvReac Type Severity Reaction Status Date / Time No Known Allergies Allergy Verified 08/06/25 01:42 [facility] Past Medical History Medical History ICD (implantable cardioverter-defibrillator) in place Atrial flutter by electrocardiogram Cardiomyopathy Anomalous coronary artery origin Atherosclerotic cardiovascular disease Heart failure with reduced ejection fraction HLD (hyperlipidemia) Acute on chronic combined systolic and diastolic CHF (congestive heart failure) Nonischemic cardiomyopathy CAD (coronary artery disease) Hypertension Pacemaker Surgical History Stented coronary artery S/P cardiac cath Hx of cardiac catheterization Family History Family History Father No problems noted. Mother No problems noted. Social History Social History Household Members: None Household Members Other:: Dog Housing: Apartment Do you presently have visiting nurse or other home services: No Alcohol intake: current Alcohol intake frequency: a few times a month Alcohol type: beer Patient Tobacco Use Status: Never used Tobacco Smoked in Last 30 Days: No e-Cigarette/Vaping Use: Never Used Second Hand Smoke Exposure: No Use of substances other than those prescribed or required for medical reasons: No Substance Use Type: Marijuana Advance Directives: Yes Advance Directives on File: Yes Advance Directives Date on File: 10/02/24 service: No Current occupational status: disabled Physical Exam Vital Signs: Vital Signs: Last Vital Signs Temp 97.4 F 08/06/25 01:38 Pulse 75 08/06/25 04:28 Resp 20 08/06/25 04:28 BP 98/71 08/06/25 04:28 Pulse Ox 97 08/06/25 04:28 O2 Del Method Room Air 08/06/25 04:28 BMI result Body Mass Index 29.0 Medical Decision Making Lab Data 08/06/25 01:33 08/06/25 01:33 Labs: Lab Results 08/06/25 Range/Units 01:33 WBC 9.3 (4.8-10.8) X10*3/uL RBC 4.36 L (4.60-5.80) X10*6/uL Hgb 13.2 L (14.0-18.0) g/dl Hct 39.3 L (42.0-52.0) % MCV 90.1 (80.0-98.0) fL MCH 30.3 (27.0-33.0) pg MCHC 33.6 (31.0-36.0) g/dl RDW 13.2 (11.0-16.0) % Plt Count 256 (160-400) X10*3/uL MPV 11.0 (9.4-12.4) fL Immature Gran % (Auto) 0.3 (0.0-0.4) % Neut % (Auto) 67.8 (45-73) % Lymph % (Auto) 22.5 (20-40) % Desha % (Auto) 7.9 (2-11) % Eos % (Auto) 1.0 (0-4) % Baso % (Auto) 0.5 (0-2) % Lymph # (Auto) 2.1 (1.2-4.9) X10*3/uL [place]ha # (Auto) 0.7 (0.1-1.2) X10*3/uL Eos # (Auto) 0.1 (0.0-0.4) X10*3/uL Baso # (Auto) 0.1 (0.0-0.2) X10*3/uL Abs Immat Gran (auto) 0.03 (0.00-0.03) X10*3/uL Absolute Neuts (auto) 6.3 (2.0-8.3) x10*3/uL Absolute Nucleated RBC 0.000 (0.0-0.012) X10*3/uL Nucleated RBC % (auto) 0.0 (0.0-0.2) /100WBC Sodium 133 L (135-145) mmol/L Potassium 4.2 (3.3-5.1) mmol/L Chloride 101 (96-108) mmol/L Carbon Dioxide 20 L (22-29) mmol/L Anion Gap 16 (12-20) BUN 18 H (9-16) mg/dL Creatinine 0.93 (0.5-1.4) mg/dL Estim Creat Clear Calc 75.2 Estimated GFR > 60 Random Glucose 156 H (60-115) mg/dL Calcium 8.6 (8.4-10.2) mg/dL Total Bilirubin 1.1 H (0.0-1.0) mg/dL AST 33 (5-37) U/L ALT 20 (0-40) U/L Alkaline Phosphatase 71 (39-117) U/L Troponin I High Sens 19.0 D (<3.5-35.0) ng/L NT-Pro-B Natriuret Pep 76856.2 H (<300) pg/mL Total Protein 6.9 (6.5-8.0) g/dL Albumin 4.3 (3.5-5.0) g/dL COVID-19 ([facility]IANA) Negative (Negative) COVID-19 Clin Com See Note Influenza Type A (PATT) Negative (Negative) Influenza Type B (PATT) Negative (Negative) Influenza A & B Note See Note Discharge Plan Discharge Prescriptions: No Action spironolactone 25 mg tablet 25 mg PO DAILY 90 Days Qty: 90 3RF clopidogrel [Plavix] 75 mg tablet 75 mg PO DAILY Qty: 90 3RF furosemide 40 mg tablet 40 mg PO DAILY Qty: 30 5RF Entresto 24-26 mg tablet 1 tab PO BID Qty: 180 3RF Jardiance 10 mg tablet 10 mg PO DAILY acetaminophen 650 mg tablet extended release 650 mg PO TID PRN (Reason: pain) amiodarone 200 mg tablet 200 mg PO DAILY Qty: 90 0RF Rx Instructions: You will require an initial loading dose: Take 2 tablets (400mg total) twice a day for the next two weeks, ending on 08/14. Staring on 08/15 take one tablet daily as a maintenance dose carvedilol 6.25 mg tablet 6.25 mg PO BID Qty: 180 0RF Rx Instructions: must administer with a meal/food. Take one tablet twice a day rosuvastatin 40 mg tablet 40 mg PO BEDTIME ezetimibe 10 mg tablet 10 mg PO DAILY Eliquis 5 mg tablet 5 mg PO BID Qty: 60 5RF Rx Instructions: New Print Language: Other
[2025-08-06] MEDS: Furosemide 40 MG/4 ML VIAL IVPUSH ×2 (05:40→17:40)
[2025-08-06 06:19] LABS: Troponin-I High Sensitivity 16.6 ng/L (<3.5-35.0)
--- NOTE | 2025-08-06 07:21 | PC.NURSE ---
Assumed care of pt. Pt sts discomfort in chest has gotten better since arrival, 12/03 now, A+Ox4, calm, cooperative. Pt denies SOB. RR even and unlabored.
--- NOTE | 2025-08-06 08:10 | PHA.MEDREC ---
Pharmacy Consult ? Medication Reconciliation Pharmacy has completed the medication reconciliation. Spoke with pt to confirm medications. Pt states there are no changes since his last admission on 08/01. Last took his medications yesterday.
--- NOTE | 2025-08-06 09:13 | PM.IMHP ---
History of Present Illness Date of Service: 08/06/25 Chief Complaint: Chest pain 70-year-old man with a history of cardiomyopathy, pacemaker, heart failure presenting with complaints of central chest pain and shortness breath that started on Tuesday. He reported mostly central chest pain with no radiation or other associated symptoms that comes and goes at all times throughout the day. He also reported some mild shortness of breath with ambulation. He was recently discharged from [facility] on 08/01/2025 and at that time treated for acute decompensated heart failure. He was treated with IV diuretics but seems like he had not improved. Last echocardiogram in March showed EF of 10-15%. Chest x-ray in the ER showing perihilar edema. In the ER he received a dose of Lasix, Tylenol, Pepcid. Plan will be to admit patient for further management and treatment of chest pain and acute decompensated heart failure. Review of Systems Review of Systems: Denies any recent fever chills or decrease in appetite respiratory See HPI cardiovascular see HPI gastrointestinal denies any dysphagia abdominal pain nausea vomiting or diarrhea genitourinary denies any dysuria frequency or hematuria musculoskeletal denies any joint pain or swelling neuropsych denies any weakness or seizures all other systems reviewed are negative REPLACED BY [facility] Medical History ICD (implantable cardioverter-defibrillator) in place Atrial flutter by electrocardiogram Cardiomyopathy Anomalous coronary artery origin Atherosclerotic cardiovascular disease Heart failure with reduced ejection fraction HLD (hyperlipidemia) Acute on chronic combined systolic and diastolic CHF (congestive heart failure) Nonischemic cardiomyopathy CAD (coronary artery disease) Hypertension Pacemaker Family History Father No problems noted. Mother No problems noted. Surgical History Stented coronary artery S/P cardiac cath Hx of cardiac catheterization Social History Household Members: None Household Members Other:: Dog Housing: Apartment Do you presently have visiting nurse or other home services: No Alcohol intake: current Alcohol intake frequency: a few times a month Alcohol type: beer Patient Tobacco Use Status: Never used Tobacco Smoked in Last 30 Days: No e-Cigarette/Vaping Use: Never Used Patient Interested in Nicotine Replacement: No Patient Given Instructions on How to Stop Smoking: No Second Hand Smoke Exposure: No Use of substances other than those prescribed or required for medical reasons: No Substance Use Type: Marijuana Have you been hit, kicked, punched, or otherwise hurt by someone within the past year? If so, by whom?: No Do you feel safe in your current relationship?: No Current Relationship Is there a partner from a previous relationship who is making you feel unsafe now?: No Are you made to feel afraid or neglected: No Advance Directives: Yes Advance Directives on File: Yes Advance Directives Date on File: 10/02/24 Do you have a plan to hurt others: No Plan Recently lost weight without trying: No Eating poorly because of decreased appetite: No Nutrition Risks: No Nutritional Risk Poor oral hygiene: No service: No Current occupational status: [employer] Allergies Allergy/AdvReac Type Severity Reaction Status Date / Time No Known Allergies Allergy Verified 08/06/25 01:42 Active Medications: Current Medications Acetaminophen (Acetaminophen 325 Mg Tablet) 650 mg PO Q6H PRN PRN Reason: Pain, Mild 1-3,fever,headache Apixaban (Apixaban 5 Mg Tablet) 5 mg PO BID [facility] Calcium Carbonate (Calcium Carbonate 750 Mg Tab.Chew) 750 mg PO Q4H PRN PRN Reason: Heartburn Carvedilol (Carvedilol 6.25 Mg Tablet) 6.25 mg PO BIDWM [facility]; Protocol Clopidogrel Bisulfate (Clopidogrel Bisulfate 75 Mg Tablet) 75 mg PO DAILY [facility] Ezetimibe (Ezetimibe 10 Mg Tablet) 10 mg PO DAILY [facility] Empagliflozin (Empagliflozin 10 Mg Tablet) 10 mg PO DAILY [facility] Influenza Virus Vaccine (Flu Vacc [id number](6mo Up)/Pf 0.5 Ml Syringe) 0.5 ml IM .ONCE ONE Stop: 08/06/25 12:01 Magnesium Hydroxide (Milk Of Magnesia 30 Ml Oral.Susp) 30 ml PO DAILY PRN PRN Reason: Constipation Melatonin (Melatonin 3 Mg Tablet) 6 mg PO BEDTIME PRN PRN Reason: Insomnia Non-Formulary Medication (Rosuvastatin) 40 mg PO BEDTIME [facility] Ondansetron HCl (Ondansetron Hcl 4 Mg/2 Ml Vial) 4 mg IVPUSH Q8H PRN PRN Reason: Nausea and Vomiting Sacubitril/Valsartan (Sacubitril/Valsartan 1 Tab Tablet) 1 tab PO BID [facility]; Protocol Sodium Chloride (0.9 % Sodium Chloride Flush 3 Ml Syringe) 3 ml IVFLUSH QSHIFT [facility] Spironolactone (Spironolactone 25 Mg Tablet) 25 mg PO DAILY [facility]; Protocol Home Medications ?Medication ?Instructions ?Recorded ?Confirmed ?Last Taken ?Type ezetimibe 10 mg tablet 10 mg PO DAILY 08/18/20 08/06/25 08/05/25 History rosuvastatin 40 mg tablet 40 mg PO BEDTIME 08/18/20 08/06/25 08/05/25 History empagliflozin 10 mg tablet 10 mg PO DAILY 02/27/25 08/06/25 08/05/25 History (Jardiance) acetaminophen 650 mg 650 mg PO TID PRN pain 04/11/25 08/06/25 08/05/25 History tablet,extended release carvedilol 6.25 mg tablet 6.25 mg PO BIDWM 08/06/25 08/06/25 08/05/25 History Physical Exam Vital Signs and Narrative: Vital Signs: Last Vital Signs Temp 97.6 F 08/06/25 08:25 Pulse 58 08/06/25 08:25 Resp 13 08/06/25 08:25 BP 96/56 L 08/06/25 08:25 Pulse Ox 96 08/06/25 08:25 O2 Del Method Room Air 08/06/25 08:25 BMI result Body Mass Index 29.0 Appearing in no acute distress head is normocephalic atraumatic eyes pupils are PERRLA sclera is anicteric mouth throat mucous membranes are intact and moist neck is supple no lymphadenopathy, no JVD noted lung sounds are clear to auscultation heart regular rate rhythm, clear S1, S2 positive bowel sounds, abdomen is soft, nontender neuro patient is alert x3, no focal deficits Results Labs 08/06/25 01:33 08/06/25 01:33 Labs: Laboratory Results - last 24 hr 08/06/25 08/06/25 01:33 05:53 MCV 90.1 MCH 30.3 MCHC 33.6 RDW 13.2 Plt Count 256 MPV 11.0 Immature Gran % (Auto) 0.3 Neut % (Auto) 67.8 Lymph % (Auto) 22.5 [place] % (Auto) 7.9 Eos % (Auto) 1.0 Baso % (Auto) 0.5 Lymph # (Auto) 2.1 [place] # (Auto) 0.7 Eos # (Auto) 0.1 Baso # (Auto) 0.1 Abs Immat Gran (auto) 0.03 Absolute Neuts (auto) 6.3 Absolute Nucleated RBC 0.000 Nucleated RBC % (auto) 0.0 Anion Gap 16 Estim Creat Clear Calc 75.2 Estimated GFR > 60 Random Glucose 156 H Calcium 8.6 Total Bilirubin 1.1 H AST 33 ALT 20 Alkaline Phosphatase 71 Troponin I High Sens 19.0 D 16.6 NT-Pro-B Natriuret Pep 48295.2 H Total Protein 6.9 Albumin 4.3 COVID-19 ([facility]IANA) Negative COVID-19 Clin Com See Note Influenza Type A (PATT) Negative Influenza Type B (PATT) Negative Influenza A & B Note See Note Assessment and Plan (1) Acute on chronic systolic CHF (congestive heart failure): Status: Acute Plan 70 year old man admitted with CHF exacerbation and chest pain Acute on chronic decompensated heart failure with reduced ejection fraction Last echocardiogram 04/09/2025 showing EF of 10-15% IV Lasix b.i.d. 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
--- NOTE | 2025-08-06 11:55 | P.CONCA_ITS ---
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 He previously was getting episodes of atrial flutter and was quite symptomatic from them. He had cardioversion in the emergency department for atrial flutter. He is now presenting for chest discomfort and pulsations in his chest and story sounds like that he had another episode of atrial arrhythmia. He is saying that symptoms have improved. His NT pro BNP significantly elevated. He has no chest discomfort currently but is short of breath. Clinically appears to be volume overloaded. [facility] Past Medical History Medical History ICD (implantable cardioverter-defibrillator) in place Atrial flutter by electrocardiogram Cardiomyopathy Anomalous coronary artery origin Atherosclerotic cardiovascular disease Heart failure with reduced ejection fraction HLD (hyperlipidemia) Acute on chronic combined systolic and diastolic CHF (congestive heart failure) Nonischemic cardiomyopathy CAD (coronary artery disease) Hypertension Pacemaker Family History Family History Father No problems noted. Mother No problems noted. Surgical History Surgical History Stented coronary artery S/P cardiac cath Hx of cardiac catheterization Social History Social History Household Members: None Household Members Other:: Dog Housing: Apartment Do you presently have visiting nurse or other home services: No Alcohol intake: current Alcohol intake frequency: a few times a month Alcohol type: beer Patient Tobacco Use Status: Never used Tobacco e-Cigarette/Vaping Use: Never Used Second Hand Smoke Exposure: No Substance Use Type: Marijuana Advance Directives Date on File: 10/02/24 service: No Current occupational status: disabled Meds Allergies Allergy/AdvReac Type Severity Reaction Status Date / Time No Known Allergies Allergy Verified 08/06/25 01:42 Active Medications: Current Medications Acetaminophen (Acetaminophen 325 Mg Tablet) 650 mg PO Q6H PRN PRN Reason: Pain, Mild 1-3,fever,headache Apixaban (Apixaban 5 Mg Tablet) 5 mg PO BID [facility] Atorvastatin Calcium (Atorvastatin Calcium 80 Mg Tablet) 80 mg PO BEDTIME [facility] Calcium Carbonate (Calcium Carbonate 750 Mg Tab.Chew) 750 mg PO Q4H PRN PRN Reason: Heartburn Carvedilol (Carvedilol 6.25 Mg Tablet) 6.25 mg PO BIDWM [facility]; Protocol Clopidogrel Bisulfate (Clopidogrel Bisulfate 75 Mg Tablet) 75 mg PO DAILY [facility] Ezetimibe (Ezetimibe 10 Mg Tablet) 10 mg PO DAILY [facility] Empagliflozin (Empagliflozin 10 Mg Tablet) 10 mg PO DAILY [facility] Furosemide (Furosemide 40 Mg/4 Ml Vial) 40 mg IVPUSH BID@0900,1800 [facility]; Protocol Influenza Virus Vaccine (Flu Vacc [id number](6mo Up)/Pf 0.5 Ml Syringe) 0.5 ml IM .ONCE ONE Stop: 08/06/25 12:01 Magnesium Hydroxide (Milk Of Magnesia 30 Ml Oral.Susp) 30 ml PO DAILY PRN PRN Reason: Constipation Melatonin (Melatonin 3 Mg Tablet) 6 mg PO BEDTIME PRN PRN Reason: Insomnia Ondansetron HCl (Ondansetron Hcl 4 Mg/2 Ml Vial) 4 mg IVPUSH Q8H PRN PRN Reason: Nausea and Vomiting Sacubitril/Valsartan (Sacubitril/Valsartan 1 Tab Tablet) 1 tab PO BID [facility]; Protocol Sodium Chloride (0.9 % Sodium Chloride Flush 3 Ml Syringe) 3 ml IVFLUSH QSHIFT [facility] Spironolactone (Spironolactone 25 Mg Tablet) 25 mg PO DAILY [facility]; Protocol Home Medications ?Medication ?Instructions ?Recorded ?Confirmed ?Last Taken ?Type ezetimibe 10 mg tablet 10 mg PO DAILY 08/18/2007/2408/05/25 History rosuvastatin 40 mg tablet 40 mg PO BEDTIME 08/18/2008/05/25 History empagliflozin 10 mg tablet 10 mg PO DAILY 02/27/2508/05/25 History (Jardiance) acetaminophen 650 mg 650 mg PO TID PRN pain 04/1108/06/25 08/05/25 History tablet,extended release carvedilol 6.25 mg tablet 6.25 mg PO BIDWM 08/06/2508/05/25 History Physical Exam 2 Vital Signs: Vital Signs: Last Vital Signs Temp 96.8 F 08/06/25 11:48 Pulse 78 08/06/25 11:48 Resp 18 08/06/25 11:48 BP 144/84 H 08/06/25 11:48 Pulse Ox 96 08/06/25 11:48 O2 Del Method Nasal Cannula 08/06/25 11:48 O2 Flow Rate 2 08/06/25 11:48 BMI result Body Mass Index 29.0 GENERAL APPEARANCE: in no acute distress, pleasant. NECK: no carotid bruit, + jugular venous distention. SKIN: no suspicious lesions, warm and dry. HEART: no murmurs, regular rate and rhythm. LUNGS: clear to auscultation bilaterally. ABDOMEN: soft, nontender. EXTREMITIES: no edema. PERIPHERAL PULSES: equal. NEUROLOGIC: No gross deficits, AAO X 3 Objective Labs and Meds 08/07/25 05:55 08/08/25 05:45 Lab results: Laboratory Results - last 24 hr 08/06/25 08/06/25 01:33 05:53 WBC 9.3 RBC 4.36 L Hgb 13.2 L Hct 39.3 L MCV 90.1 MCH 30.3 MCHC 33.6 RDW 13.2 Plt Count 256 MPV 11.0 Immature Gran % (Auto) 0.3 Neut % (Auto) 67.8 Lymph % (Auto) 22.5 Garden % (Auto) 7.9 Eos % (Auto) 1.0 Baso % (Auto) 0.5 Lymph # (Auto) 2.1 Garden # (Auto) 0.7 Eos # (Auto) 0.1 Baso # (Auto) 0.1 Abs Immat Gran (auto) 0.03 Absolute Neuts (auto) 6.3 Absolute Nucleated RBC 0.000 Nucleated RBC % (auto) 0.0 Sodium 133 L Potassium 4.2 Chloride 101 Carbon Dioxide 20 L Anion Gap 16 BUN 18 H Creatinine 0.93 Estim Creat Clear Calc 75.2 Estimated GFR > 60 Random Glucose 156 H Calcium 8.6 Total Bilirubin 1.1 H AST 33 ALT 20 Alkaline Phosphatase 71 Troponin I High Sens 19.0 D 16.6 NT-Pro-B Natriuret Pep 88812.2 H Total Protein 6.9 Albumin 4.3 COVID-19 (ARIANA) Negative COVID-19 Clin Com See Note Influenza Type A (PATT) Negative Influenza Type B (PATT) Negative Influenza A & B Note See Note Assessment and Plan (1) Heart failure with reduced ejection fraction: Status: Acute Plan Pleasant 70 year gentleman with known history of coronary disease and cardiomyopathy. He previously had PCI performed by Dr. Gamino and had [employer]NAGER-D recently. He had flutter ablation in March 2025 and his device interrogation in the office did show SVT. He is presenting with chest pain and fluttering in his chest. Possible that he had another episode of SVT. Monitor telemetry. Continue gentle diuresis. Continue amiodarone. We will follow along with you. Thank you for allowing me to participate in the care of your patient. Please feel free to contact me if you have any questions. Procedures Date of Service Date of Service: 08/08/25
[2025-08-06] MEDS: Flu Vacc TS2025-26(6mo up)/PF 0.5 ML SYRINGE IM (12:23)
--- NOTE | 2025-08-06 14:11 | MHC.CM.PN ---
CM assessment completed w/ wired music operator assistance. Patient lives in an apartment alone. Ambulates w/ a cane, sometimes walker. Has a [employer] RN M//// for a total of 22 hrs/ wk to assist w/ dressing, bathing, transport, cooking and shopping. Agency is [facility]. PCP Imelda Sepulveda MD HCP on file and verified. DP: Goal is home, resume [employer] RN services. He does not feel he will need additional services. [facility] RN, Marta, to transport. CM will continue to follow.
[2025-08-06] MEDS: 0.9 % Sodium Chloride Flush 3 ML SYRINGE IVFLUSH ×2 (16:01→20:52)
[2025-08-06] MEDS: Sacubitril/Valsartan 24/26 1 TAB TABLET PO (20:50)
[2025-08-07] VITALS (8 sets, daily range): BP systolic 90–110; BP diastolic 59–67; PULSE 62–106; RESP 14–18; TEMP 36.1–36.4; O2SAT 97–99; BMI 27.1
[2025-08-07 06:30] LABS: Hematocrit 36.8 % (42.0-52.0); Hemoglobin 12.2 g/dl (14.0-18.0); Mean Corpuscular HGB Conc 33.2 g/dl (31.0-36.0); Mean Corpuscular Hemoglobin 30.3 pg (27.0-33.0); Mean Corpuscular Volume 91.3 fL (80.0-98.0); NRBC Abs Auto 0.000 X10*3/uL (0.0-0.012); NRBC Pct Auto 0.0 /100WBC (0.0-0.2); Platelet Count 194 X10*3/uL (160-400); Red Blood Count 4.03 X10*6/uL (4.60-5.80); White Blood Count 6.9 X10*3/uL (4.8-10.8)
[2025-08-07 06:45] LABS: Anion Gap 12 (12-20); Blood Urea Nitrogen 11 mg/dL (9-16); Calcium 8.4 mg/dL (8.4-10.2); Carbon Dioxide 28 mmol/L (22-29); Chloride 103 mmol/L (96-108); Creatinine Clr Calc Pharmacy 77.6; Estimated Glomerular Filt Rate > 60; Potassium 3.6 mmol/L (3.3-5.1); Sodium 139 mmol/L (135-145)
[2025-08-07] MEDS: Furosemide 40 MG/4 ML VIAL IVPUSH (09:24)
[2025-08-07] MEDS: Sacubitril/Valsartan 24/26 1 TAB TABLET PO ×2 (09:24→21:34)
[2025-08-07] MEDS: 0.9 % Sodium Chloride Flush 3 ML SYRINGE IVFLUSH ×3 (09:25→21:36)
[2025-08-07 09:28] LABS: NT Pro B Type Natriuretic Pept 6329.1 pg/mL (<300)
--- NOTE | 2025-08-07 10:31 | MHC.CM.PN ---
Patient not medically cleared for dc. CM will continue to follow.
--- NOTE | 2025-08-07 15:20 | PC.NURSE ---
BP low 90/59 pulse 71 ,patient asymptomatic, Dr. Ash notified
--- NOTE | 2025-08-07 17:01 | P.PNIM_ITS ---
Subjective Subjective Date of Service: 08/07/25 Interval History: chf exacerbation Review of Systems Shortness of breaths seems similar, more with exertion Review of Systems: Yes all other systems are reviewed and are negative Physical Exam 2 Exam: Exam: Appearance: Alert.? Oriented X3.? Shortness of breath with exertion cvs: rrr, [id number] , no murmur res: clear to auscultation ,no rhonchii or wheezing abd: no rebound or guarding ,nt, bs present. ext pulses present , no cyanosis , 1+ edema. neuro: axo3 , nonfocal. Vital Signs: Vital Signs: Last Vital Signs Temp 97.3 F 08/07/25 15:06 Pulse 68 08/07/25 15:06 Resp 16 08/07/25 15:06 BP 90/59 L 08/07/25 15:17 Pulse Ox 99 08/07/25 15:06 O2 Del Method Room Air 08/07/25 15:06 O2 Flow Rate 2 08/06/25 11:48 BMI result Body Mass Index 27.1 Objective Data Active Medications Acetaminophen (Acetaminophen 325 Mg Tablet) 650 mg PO Q6H PRN PRN Reason: Pain, Mild 1-3,fever,headache Apixaban (Apixaban 5 Mg Tablet) 5 mg PO BID [facility] Last Admin: 08/07/25 09:24 Dose: 5 mg Documented By: ISAAK Atorvastatin Calcium (Atorvastatin Calcium 80 Mg Tablet) 80 mg PO BEDTIME [facility] Last Admin: 08/06/25 20:50 Dose: 80 mg Documented By: NESSA Calcium Carbonate (Calcium Carbonate 750 Mg Tab.Chew) 750 mg PO Q4H PRN PRN Reason: Heartburn Carvedilol (Carvedilol 6.25 Mg Tablet) 6.25 mg PO BIDWM [facility]; Protocol Last Admin: 08/07/25 15:21 Dose: Not Given Documented By: RIVAS Non-Admin Reason: low BP held per Dr. Ash Clopidogrel Bisulfate (Clopidogrel Bisulfate 75 Mg Tablet) 75 mg PO DAILY [facility] Last Admin: 08/07/25 09:24 Dose: 75 mg Documented By: ISAAK Ezetimibe (Ezetimibe 10 Mg Tablet) 10 mg PO DAILY [facility] Last Admin: 08/07/25 09:24 Dose: 10 mg Documented By: ISAAK Empagliflozin (Empagliflozin 10 Mg Tablet) 10 mg PO DAILY [facility] Last Admin: 08/07/25 09:24 Dose: 10 mg Documented By: ISAAK Furosemide (Furosemide 40 Mg/4 Ml Vial) 40 mg IVPUSH BID@0900,1800 [facility]; Protocol Last Admin: 08/07/25 15:21 Dose: Not Given Documented By: RIVAS Non-Admin Reason: low BP held per Dr. Ash Magnesium Hydroxide (Milk Of Magnesia 30 Ml Oral.Susp) 30 ml PO DAILY PRN PRN Reason: Constipation Melatonin (Melatonin 3 Mg Tablet) 6 mg PO BEDTIME PRN PRN Reason: Insomnia Ondansetron HCl (Ondansetron Hcl 4 Mg/2 Ml Vial) 4 mg IVPUSH Q8H PRN PRN Reason: Nausea and Vomiting Sacubitril/Valsartan (Sacubitril/Valsartan 1 Tab Tablet) 1 tab PO BID [facility]; Protocol Last Admin: 08/07/25 09:24 Dose: 1 tab Documented By: ISAAK Sodium Chloride (0.9 % Sodium Chloride Flush 3 Ml Syringe) 3 ml IVFLUSH QSHIFT [facility] Last Admin: 08/07/25 15:22 Dose: 3 ml Documented By: RIVAS Spironolactone (Spironolactone 25 Mg Tablet) 25 mg PO DAILY [facility]; Protocol Last Admin: 08/07/25 09:24 Dose: 25 mg Documented By: ISAAK Labs 08/07/25 05:55 08/07/25 05:55 Labs: Laboratory Results - last 24 hr 08/07/25 08/07/25 05:55 08:45 MCV 91.3 MCH 30.3 MCHC 33.2 RDW 13.3 Plt Count 194 MPV 11.2 Absolute Nucleated RBC 0.000 Nucleated RBC % (auto) 0.0 Anion Gap 12 Estim Creat Clear Calc 77.6 Estimated GFR > 60 Random Glucose 81 Calcium 8.4 NT-Pro-B Natriuret Pep 6329.1 H Assessment and Plan (1) Acute CHF: Status: Acute Plan 70 year old man admitted with CHF exacerbation and chest pain Acute on chronic decompensated heart failure with reduced ejection fraction Last echocardiogram 04/09/2025 showing EF of 10-15% IV Lasix b.i.d. 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 Monitor I&O, telemetry, renal function electrolytes. Quality Stroke Does the patient have a stroke diagnosis?: No VTE Prior VTE?: No VTE Risk Level:: Medical - moderate - high VTE Device Contraindication: Treatment Not Indicated VTE Drug Contraindication: N/A - Med Ordered
[2025-08-08 04:00] VITALS: BP 106/60; PULSE 69; RESP 18; TEMP 36.9; O2SAT 100
[2025-08-08 06:00] VITALS: BMI 26.8
[2025-08-08 06:37] LABS: Anion Gap 12 (12-20); Blood Urea Nitrogen 12 mg/dL (9-16); Calcium 8.4 mg/dL (8.4-10.2); Carbon Dioxide 27 mmol/L (22-29); Chloride 104 mmol/L (96-108); Creatinine Clr Calc Pharmacy 86.1; Estimated Glomerular Filt Rate > 60; Potassium 4.0 mmol/L (3.3-5.1); Sodium 139 mmol/L (135-145)
[2025-08-08 06:43] LABS: NT Pro B Type Natriuretic Pept 3683.7 pg/mL (<300)
[2025-08-08 08:11] VITALS: BP 90/76; PULSE 71; RESP 18; TEMP 36.2; O2SAT 98
[2025-08-08] MEDS: 0.9 % Sodium Chloride Flush 3 ML SYRINGE IVFLUSH (10:16)
[2025-08-08 12:00] VITALS: BP 89/66; PULSE 79; RESP 18; TEMP 36.3; O2SAT 97
--- NOTE | 2025-08-08 12:52 | MHC.CM.PN ---
DP: PT HAS BEEN MEDICALLY CLEARED FOR DC HOME, NO SERVICES. PT HAS A RIDE HOME.
--- NOTE | 2025-08-08 12:52 | PM.DS ---
DS: Providers Provider Date of Service: 08/08/25 Date of admission: 08/06/25 06:31 Date of discharge: 08/08/25 Primary care physician: Imelda Sepulveda MD Consults: 08/06/25 09:08 Consult to Cardiology Routine Consulting Provider: [facility] Reason for consultation: CHF Attending physician on discharge: Cristobal Ash Discharging clinician: Cristobal Ash DS: Diagnosis Discharge Diagnosis (1) Acute CHF: Status: Acute DS: Summary Hospital Course Hospital Course: Hpi:70-year-old man with a history of cardiomyopathy, pacemaker, heart failure presenting with complaints of central chest pain and shortness breath that started on Tuesday. He reported mostly central chest pain with no radiation or other associated symptoms that comes and goes at all times throughout the day. He also reported some mild shortness of breath with ambulation. He was recently [facility] 08/[facility]25 and at that time treated for acute decompensated heart failure. He was treated with IV diuretics but seems like he had not improved. Last echocardiogram in March showed EF of 10-15%. Chest x-ray in the ER showing perihilar edema. In the ER he received a dose of Lasix, Tylenol, Pepcid. Plan will be to admit patient for further management and treatment of chest pain and acute decompensated heart failure. Hospital course:70 year old man admitted with CHF exacerbation and chest pain : Troponin flat, BNP was in 11,000 range, cxr:Perihilar edema or infiltrates-patient was started on IV Lasix, continue medications including amiodarone. Patient seems to be improved significantly with the above management, diuresed well, BNP improving to 3600 range. as per last discharge note:continue amiodarone 2 tablets (400mg total) twice a day for the next two weeks, ending on 08/14. Staring on 08/15 take one tablet daily as a maintenance dose. plan: CHF education given-if gains weight 2 lb or more in a week-will need outpatient Lasix dosing assessment with PCP. Consider Follow-up with cardiology outpatient. Continue Lasix and amiodarone(as prescribed), Plavix/Eliquis. Monitor BMP/electrolyte outpatient. Follow up with PCP and Cardiology outpatient. Patient says he has cardiology appointment next week. 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 All questions answered. Time Attestation Total time managing care of this patient today: 45 mintues. Discharge Coordination Time (in mins): 45 min Quality: Safe Use of Opioids Does Pt have an Active Cancer Diagnosis on the Problem List?: No Quality: Stroke Does the patient have a stroke diagnosis?: No Physical Exam Exam: Exam: Appearance: Alert.? Oriented X3. Seems euvolemic, no shortness of breath even with walking. cvs: rrr, [id number] , no murmur res: clear to auscultation ,no rhonchii or wheezing abd: no rebound or guarding ,nt, bs present. ext pulses present , no cyanosis . neuro: axo3 , nonfocal. Vital Signs: Vital Signs: Last Vital Signs Temp 97.4 F 08/08/25 12:00 Pulse 79 08/08/25 12:00 Resp 18 08/08/25 12:00 BP 89/66 L 08/08/25 12:00 Pulse Ox 97 08/08/25 12:00 O2 Del Method Room Air 08/08/25 12:00 O2 Flow Rate 2 08/06/25 11:48 BMI result Body Mass Index 26.8 DS: Data Data Completed and Pending Completed studies during hospitalization [Text1]: Procedures [facility] of Cardiac Rhythm, Single (04/11/25) Labs on day of discharge: Laboratory Results - last 24 hr 08/08/25 05:45 Hold Purple Top SEE NOTE Sodium 139 Potassium 4.0 Chloride 104 Carbon Dioxide 27 Anion Gap 12 BUN 12 Creatinine 0.73 Estim Creat Clear Calc 86.1 Estimated GFR > 60 Random Glucose 78 Calcium 8.4 NT-Pro-B Natriuret Pep 3683.7 H Imaging Chest x-ray: My impression: cxr: Perihilar edema or infiltrates. Discharge Plan Discharge Anticipated Discharge Date/Time: 08/08/25 12:45 Patient Disposition: Home, Self-Care Discharge Diagnosis: chf exacerbation Referrals: Imelda Sepulveda MD [Primary Care Provider, Internal Medicine] - 1 Week Discharge Medications: Continued spironolactone 25 mg tablet 25 mg PO DAILY 90 Days Qty: 90 3RF clopidogrel [Plavix] 75 mg tablet 75 mg PO DAILY Qty: 90 3RF furosemide 40 mg tablet 40 mg PO DAILY Qty: 30 5RF Entresto 24-26 mg tablet 1 tab PO BID Qty: 180 3RF Jardiance 10 mg tablet 10 mg PO DAILY acetaminophen 650 mg tablet extended release 650 mg PO TID PRN (Reason: pain) amiodarone 200 mg tablet 200 mg PO DAILY Qty: 90 0RF Rx Instructions: You will require an initial loading dose: Take 2 tablets (400mg total) twice a day for the next two weeks, ending on 08/14. Staring on 08/15 take one tablet daily as a maintenance dose carvedilol 6.25 mg tablet 6.25 mg PO BIDWM Rx Instructions: must administer with a meal/food. Take one tablet twice a day rosuvastatin 40 mg tablet 40 mg PO BEDTIME ezetimibe 10 mg tablet 10 mg PO DAILY Eliquis 5 mg tablet 5 mg PO BID Qty: 60 5RF Rx Instructions: New Discharge Orders: Discharge Order (Routine); Ordered 08/08/25 Ordered By: Cristobal Ash Diet: Advance to usual diet Activity on Discharge: As tolerated Stand Alone Forms: Patient Portal Discharge page Print Language: Rwandan Care Plan Goals: CHF education given-if gains weight 2 lb or more in a week-will need outpatient Lasix dosing assessment with PCP. Consider Follow-up with cardiology outpatient. amiodarone -Take 2 tablets (400mg total) twice a day for the next two weeks, ending on 08/14. Staring on 08/15 take one tablet daily as a maintenance dose( as precribed during lasta dmission) Continue Lasix and amiodarone(as prescribed), Plavix/Eliquis. Health Concerns: as above. Plan of Treatment: as above. Assessment: as above. Patient Instructions: Heart Failure (DC) Discharge Date/Time: 08/08/25 13:24
== END 2025-08-08 13:24 | disposition home or self-care (01) | DRG 291 ==
LOC: HO.ED 04:54 → HO.EDOVER 06:35 → HO.S3 07:07
PROVIDERS: Nurse Practitioner Acute Care; Admitting Provider Internal Medicine; Emergency Provider Emergency Medicine; PCP Internal Medicine; Visit Provider Internal Medicine
DX: I11.0 Hypertensive heart disease with heart failure (principal); I50.23 Acute on chronic systolic (congestive) heart failure; I25.10 Atherosclerotic heart disease of native coronary artery without angina pectoris; I42.8 Other cardiomyopathies; Z20.822 Contact with and (suspected) exposure to COVID-19; Z23 Encounter for immunization; Z95.5 Presence of coronary angioplasty implant and graft; Z95.810 Presence of automatic (implantable) cardiac defibrillator; Z79.01 Long term (current) use of anticoagulants; Z79.02 Long term (current) use of antithrombotics/antiplatelets; Z79.899 Other long term (current) drug therapy
CPT/HCPCS: 36415; 71045; 80048; 80053; 83880; 84484; 85025; 85027; 87502; 87635; 90656; 93005; 99285; J1308; J1938

== ENCOUNTER → 2025-08-06 01:28 | Outpatient (BNV) | payer OTHER, SELFPAY | PROVIDERS: Admitting Provider Internal Medicine; Emergency Provider Emergency Medicine; PCP Internal Medicine; Visit Provider Internal Medicine Cardiovascular Disease | DX: R94.31 Abnormal electrocardiogram [ECG] [EKG] (principal); Z95.0 Presence of cardiac pacemaker | CPT/HCPCS: 93010 ==

== ENCOUNTER → 2025-08-06 01:40 | Outpatient (BNV) | payer OTHER, SELFPAY | PROVIDERS: PCP Internal Medicine; Visit Provider General Practice | DX: R07.9 Chest pain, unspecified (principal) | CPT/HCPCS: 71045 ==

== ENCOUNTER → 2025-08-06 06:31 | Outpatient (BNV) | payer OTHER, SELFPAY | PROVIDERS: Admitting Provider Internal Medicine; Emergency Provider Emergency Medicine; PCP Internal Medicine; Visit Provider Nurse Practitioner Acute Care | DX: I50.23 Acute on chronic systolic (congestive) heart failure (principal) | CPT/HCPCS: 99223; 99232 ==

== ENCOUNTER → 2025-08-06 06:31 | Outpatient (BNV) | payer OTHER, SELFPAY | PROVIDERS: Admitting Provider Internal Medicine; Emergency Provider Emergency Medicine; PCP Internal Medicine; Visit Provider Internal Medicine Cardiovascular Disease | DX: I50.20 Unspecified systolic (congestive) heart failure (principal) | CPT/HCPCS: 99222 ==

== ENCOUNTER 2025-08-19 10:47 | Outpatient (REF) | payer OTHER, SELFPAY ==
[2025-08-19 12:40] LABS: Anion Gap 12 (12-20); Blood Urea Nitrogen 21 mg/dL (9-16); Calcium 8.9 mg/dL (8.4-10.2); Carbon Dioxide 30 mmol/L (22-29); Chloride 102 mmol/L (96-108); Estimated Glomerular Filt Rate > 60; Potassium 3.7 mmol/L (3.3-5.1); Sodium 140 mmol/L (135-145)
== END 2025-08-19 10:48 | disposition home or self-care (01) ==
LOC: HO.LAB 10:47
PROVIDERS: PCP Internal Medicine; Visit Provider Internal Medicine Cardiovascular Disease
DX: I11.0 Hypertensive heart disease with heart failure (principal); I50.20 Unspecified systolic (congestive) heart failure; I48.92 Unspecified atrial flutter; Z95.810 Presence of automatic (implantable) cardiac defibrillator; Z79.899 Other long term (current) drug therapy
CPT/HCPCS: 36415; 80048; 83880; 93284; 99212

== ENCOUNTER 2025-08-19 10:47 | Outpatient (AMB) | payer OTHER, SELFPAY ==
--- OUTSIDE RECORDS SUMMARY | 2024-11-16 05:30 | XMS_ITS ---
Author Organization [facility] Address [address] [place] [address] Care Team Providers Care Graphite Grinder Name Role Phone Imelda Sepulveda Primary Care Provider Unavailab Fabio Amin Unavailable [phone] Medications Medication SIG (Take, Route, Frequency, Duration) [...] No Encounters Encounter Location Date Provider Diagnosis [facility] [address] [place] [address] 11/16/2024 Fabio Silverio Plan Of Treatment No Information Progress Notes * Sayda SIMMSOB:[birth year] (70 yo M)Acc No.[id number]:11/16/2024 Progress Notes Patient: Trenton ORANTES Provider: Jina Silverio DPM :1955 A ge:69 Y S ex:Male Date:11/16/2024 Address:[address] [place] [address] [facility] Pcp:Imelda Sepulveda Subjective: * Chief Complaints: * [...] enies. C ardiovascular: Pacemaker d enies. M CEMENT CONTRACTOR d enies. W PW d enies. C [...] 0 11/16/2024 Generated for Jackie guerrero/Carter/Ronaldo on: 01:20 PM EDT
--- NOTE | 2025-08-19 11:05 | MHC.OFFVIS ---
Vital Signs 08/19/25 11:06 Height 5 ft 6 in Weight 165 lb 5.547 oz BMI 26.7 BP 136/72 Blood Pressure Location Lt brachial Position Sitting Pulse 82 Intake Visit Reasons: 3 mth f/up Intake Note: 3 month follow-up with [facility] check had ekg on 08/06 c/o being in [facility] x2 1x at [facility] a few days ago concerned about meds Broadcast Meteorologist Required: No Broadcast Meteorologist Services: Broadcast Meteorologist Offered & Declined Sub Arc Operator: Sub Arc Operator Present Accompanied by: Daughter Allergies No Known Allergies Allergy (Verified 08/06/25 01:42) Medication List - Last Reconciled 08/19/25 by Nash Anne MD acetaminophen ER 650 mg PO TID PRN apixaban (Eliquis) 5 mg PO BID carvedilol 6.25 mg PO BIDWM empagliflozin (Jardiance) 10 mg PO DAILY ezetimibe 10 mg PO DAILY furosemide 80 mg PO BID rosuvastatin 40 mg PO BEDTIME sacubitril-valsartan 24-26 mg (Entresto) 1 tab PO BID spironolactone 25 mg PO DAILY 90 days HPI Comments Details: Trenton comes for follow-up. Since in his last few months and since his biventricular upgrade he has had significant hospitalization related to decompensated congestive heart failure. The 3rd admission most recently at [facility]. He was then discharged on 80 mg b.i.d. of Lasix and as per the daughter he has been putting out a lot of urine and has been doing well. Patient overall says he feels well. He has not had any recurrent chest pressure or trouble breathing episodes. No leg edema. He is taking all his medication although he was taken off amiodarone therapy for unclear reasons. He is taking currently carvedilol, Jardiance, Entresto and spironolactone therapy. He said he is back to his walking activity. Denies any orthopnea, PND, leg edema. 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 Mother No problems noted. Social History Household Members: None Household Members Other:: Dog Housing: Apartment Do you presently have visiting nurse or other home services: No Alcohol intake: current Alcohol intake frequency: a few times a month Alcohol type: beer Patient Tobacco Use Status: Never used Tobacco e-Cigarette/Vaping Use: Never Used Second Hand Smoke Exposure: No Substance Use Type: Marijuana Advance Directives Date on File: 10/02/24 service: No Current occupational status: disabled Review of Systems Const Reports fatigue and Denies weakness ENT Denies dizziness Card Denies chest pain, Denies chest pain at rest, Denies chest pain with activity, Denies rapid heart rate, Denies pedal edema, Denies edema, Denies leg edema, Denies lightheadedness, Denies palpitations, Denies dyspnea, Denies dyspnea on exertion and Denies orthopnea Resp Denies cough, Denies dyspnea and Denies dyspnea on exertion GI Denies hematochezia and Denies change in stool character Musc Denies abnormal gait, Denies limited range of motion, Denies muscle cramps, Denies muscle weakness, Denies numbness, Denies radiating pain into limb, Denies stiffness and Denies tingling Neuro Denies abnormal gait, Denies dizziness, Denies numbness, Denies tingling and Denies weakness Endo Reports fatigue and Denies palpitations Physical Exam Vital Signs: Last Vital Signs Pulse 82 08/19/25 11:06 BP 136/72 08/19/25 11:06 BMI result Body Mass Index 26.7 Const General: cooperative, comfortable, alert and awake Nutritional Appearance: overweight Orientation/consciousness: patient oriented x3 Limitations: no limitations Neck Neck: Yes trachea midline, Yes supple and Yes no JVD Resp Effort & Inspection: normal respiratory effort Auscultation: clear to auscultation bilaterally Cardio Jugular venous distension: no JVD Palpation: abnormal PMI displaced PMI Rate: regular rate Rhythm: regular rhythm Heart sounds: S1 normal heart sound present and S2 normal heart sound present GI Inspection: Yes obesity Auscultation: normal bowel sounds Skin General skin exam: no rashes or lesions noted Neuro General: patient oriented x3 and no focal motor deficits Extrem General: Yes no clubbing, cyanosis or edema Psych Appearance: grossly normal Office Procedures Cardiac Device Check Cardiac Device Check Details: Biventricular [facility] ICD in place. Atrial and LV pacing thresholds are excellent and in auto capture mode. Atrial ventricular sensing is excellent. Pacing and shock lead impedance is stable. LV pacing 98% of the time. No ventricular arrhythmias noted. No atrial arrhythmias noted. Battery life is excellent at 8.3 years [id number] Cardiac Device Check, multi lead implantable defibrillator Procedure code (CPT) selection complete Assessment & Plan Assessment & Plan (1) Heart failure with reduced ejection fraction: Code(s): I50.20 - Unspecified systolic (congestive) heart failure Category: Medical Plan: Heart failure with reduced ejection fraction in his elderly gentleman with recent multiple hospitalization which has made him quite frustrated. I discussed with him gradually progressive nature of his heart failure syndrome with significantly reduced LV ejection fraction. Unclear as to recent recurrent hospitalization per se but overall currently he is doing well. maybe just advancing heart failure syndrome at this point time. He is currently on good neurohormonal modulation with carvedilol, Entresto, spironolactone as well as Jardiance. Advised to continue the same. Will pursue rhythm control approach, see below. Continue current diuretic dose which has 80 mg b.i.d.. Advised daily weight monitoring avoidance salt loading and additional diuretics as need be. Management of heart failure was discussed. Strongly recommended phase 2 cardiac rehabilitation but he is currently not interested. Goals of therapy were discussed. Advised blood work today. (2) Biventricular ICD (implantable cardioverter-defibrillator) in place: Code(s): Z95.810 - Presence of automatic (implantable) cardiac defibrillator Category: Medical Plan: Biventricular ICD in place, working well. Will follow remotely for heart failure as well as device check. Unsure if RV pacing needs to be turned on to improve device function. (3) Atrial flutter: Code(s): I48.92 - Unspecified atrial flutter Category: Medical Plan: Atrial flutter in the past with ablation but now was having recurrent both atrial and ventricular arrhythmias. At this point time I would continue amiodarone 200 mg daily to suppress both atrial and ventricular arrhythmias. Continue monitor pacer telemetry. Currently on full oral anticoagulation with Eliquis continue the same. Quarterly renal function test should be pursued. Will follow up in the clinic in 6 weeks time. Greater than 40 minutes were spent with him. Thank you for allowing me to partake in his care Orders: Orders Basic Metabolic Panel Today I50.20 - Unspecified systolic (congestive) heart failure NT Pro B Type Natriuretic Pept Today I50.20 - Unspecified systolic (congestive) heart failure Medications: New furosemide 80 mg (2 x 40 mg) PO BID 150 tabs 5RF I50.20 - Unspecified systolic (congestive) heart failure amiodarone 200 mg PO DAILY 30 tabs 2RF I50.20 - Unspecified systolic (congestive) heart failure Coding Level of Care Code Est Pt Level 5 (96511) Complex EM visit Add On G2211 Diagnoses Heart failure with reduced ejection fraction I50.20 Biventricular ICD (implantable cardioverter-defibrillator) in place Z95.810 Atrial flutter I48.92 CPT Codes Cardiac Device Check - Cardiac Device 6: [id number] Cardiac Device Check, multi lead implantable defibrillator ([id number])
[2025-08-19 11:06] VITALS: BP 136/72; PULSE 82; BMI 26.7
--- OUTSIDE RECORDS SUMMARY | 2025-08-19 13:20 | XMS_ITS | Patient Health Record ---
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 Name Role Phone Imelda Sepulveda Primary Care Provider Unavailab Fabio Amin Unavailable [phone] Reason For Referral No Information Medications Medication [...] No Encounters Encounter Location Date Provider Diagnosis [facility] [address] [place] [address] 11/15/2024 Fabio Silverio Plan Of Treatment No Information Insurance Providers Payer Name Payer Address Payer Phone Subscriber Number Group Number Insured Name Patient Relationship to Insured Coverage Start Date Coverage End Date [facility] [employer] Claims [address] [place] [id number] Trenton Dasilva Self - patient is the insured Medical (General) History Medical History History ICD Code Heart disease High Blood Pressure Stroke Surgical History Surgery Date(Month/Year) cardiac pacemeker
== END 2025-08-19 11:35 | disposition home or self-care (01) ==
PROVIDERS: PCP Internal Medicine; Visit Provider Internal Medicine Cardiovascular Disease
DX: I50.20 Unspecified systolic (congestive) heart failure (principal); I48.92 Unspecified atrial flutter; Z95.810 Presence of automatic (implantable) cardiac defibrillator
CPT/HCPCS: 93284; 99214; G2211

== ENCOUNTER 2025-08-25 23:11 | Inpatient (IN) | payer OTHER, SELFPAY ==
--- OUTSIDE RECORDS SUMMARY | 2024-11-16 04:30 | XMS_ITS ---
Author Organization [facility] Address [address] [place] [address] Care Team Providers Care Director Music Name Role Phone Imelda Sepulveda Primary Care Provider Unavailab Fabio Amin Unavailable [phone] Medications Medication SIG (Take, Route, Frequency, Duration) [...] No Encounters Encounter Location Date Provider Diagnosis [facility] [address] [place] [address] 11/16/2024 Fabio Silverio Plan Of Treatment No Information Progress Notes * Sayda SIMMSOB:[birth year] (70 yo M)Acc No.[id number]:11/16/2024 Progress Notes Patient: Trenton ORANTES Provider: Jina Silverio DPM :1955 A ge:69 Y S ex:Male Date:11/16/2024 Address:[address] [place] [address] [facility] Pcp:Imelda Sepulveda Subjective: * Chief Complaints: * [...] enies. C ardiovascular: Pacemaker d enies. 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 W PW d enies. C [...] 0 11/16/2024 Generated for Jackie guerrero/Carter/Ronaldo on: 10/25/2024 11:45 PM EST
--- NOTE | ~2025-08-25 | XR_ITS ---
CLINICAL HISTORY: chest pain 1 view chest x-ray Comparison: Chest x-ray most recently earlier on 08/26/2025 Findings: Persistent bilateral airspace densities. Persistent mild blunting of right costophrenic angle suggestive of pleural effusion. No pneumothorax. Heart is enlarged. Central pulmonary venous congestion. No acute soft tissue or osseous abnormality. Impression: 1. Persistent findings suggestive of moderate CHF. Patchy densities may represent component of pulmonary edema however infectious or inflammatory process may have this appearance in the appropriate clinical setting. 2. Additional findings as above. This document has been electronically signed by: Isela Grimes MD on 08/26/2025 23:15:36
--- NOTE | ~2025-08-25 | CT_ITS ---
CLINICAL HISTORY: abd pain CT abdomen and pelvis without contrast Comparison: None provided Findings: Limited evaluation of soft tissues and solid organs in the absence of IV contrast Moderate right-sided and small left-sided pleural effusions. Parenchymal ground-glass densities. Cardiomegaly. Liver, spleen, pancreas, and adrenal glands are unremarkable. Nondistended gallbladder. Suggestion of small amount of gallbladder sludge. No hydronephrosis. No obstructing renal, ureteral or bladder calculi. Moderate circumferential bladder wall thickening. Enlarged prostate. Calcified but nonaneurysmal abdominal aorta. Nondistended stomach. Normal caliber small bowel. No obstruction. Colon is unremarkable. No appendicitis. No acute osseous abnormality. No lytic or sclerotic osseous lesions. Impression: 1. No acute findings identified in the abdomen or pelvis within limitation of this noncontrast exam. 2. Moderate right-sided and small left-sided pleural effusions. 3. Parenchymal ground-glass densities reflecting edema versus pneumonitis. 4. Additional findings as above. This document has been electronically signed by: Isela Grimes MD on 08/26/2025 23:35:30
--- NOTE | ~2025-08-25 | XR_ITS ---
CLINICAL HISTORY: CP 1 view chest x-ray Comparison: Prior chest radiographs most recently on 08/06/2025 Findings: Cardiomegaly along with moderate central pulmonary venous congestion and increased conspicuity of interstitial markings. No large pleural effusion. No pneumothorax. Stable position of left chest dual-chamber pacemaker. No acute soft tissue or osseous abnormality. Impression: 1. Constellation of findings most consistent with moderate CHF/fluid overload. 2. Additional findings as above. This document has been electronically signed by: Isela Grimes MD on 08/26/2025 00:53:02
--- NOTE | 2025-08-25 23:15 | ECG_ITS ---
Test Reason : CP Blood Pressure : */* mmHG Vent. Rate : 119 BPM Atrial Rate : 119 BPM P-R Int : * ms QRS Dur : 146 ms QT Int : 422 ms P-R-T Axes : * -88 80 degrees QTcB Int : 593 ms Ventricular-paced rhythm Abnormal ECG When compared with ECG of 06-Aug-2025 01:28, Vent. rate has increased by 26 bpm Referred By: Generic ED Physician Electronically Signed By: Zuhair Hernandes
[2025-08-25 23:24] VITALS: BP 126/97; PULSE 122; RESP 37; TEMP 36.4; O2SAT 98; BMI 28.1
--- NOTE | 2025-08-25 23:43 | ED.CHESTPAIN ---
HPI - Chest Pain General Chief Complaint: Chest Pain Stated Complaint: chest pain, not feeling legs Time Seen by Provider: 08/25/25 23:43 History of Present Illness ED Provider: Ana JEFFERS narrative: The patient is 70-year-old male with a history of congestive heart failure. The patient had an echocardiogram 5 months ago that showed an ejection fraction of 10-15% with a global hypokinesis. The patient has on apixaban. He has a pacer/ICD device in place. The patient was most recently hospitalized at this hospital a few weeks ago. He was admitted on August 06 and discharged on August 08. This was for an exacerbation of his congestive heart failure. The patient presented to the emergency room at [facility] on August 14. Again he was complaining of chest pain and shortness of breath. He was felt to have an exacerbation of his chronic congestive heart failure. His workup in the emergency room at [facility] included a CT angiogram to exclude dissection. There was no dissection. The patient received IV furosemide and was hospitalized overnight and discharged on August 15. He presents to the emergency room today complaining of 2 hours of chest pain and shortness of breath. No fever, no significant cough. Related Data Home Medications ?Medication ?Instructions ?Recorded ?Confirmed ezetimibe 10 mg tablet 10 mg PO DAILY 08/18/20 08/19/25 rosuvastatin 40 mg tablet 40 mg PO BEDTIME 08/18/20 08/19/25 empagliflozin 10 mg tablet 10 mg PO DAILY 02/27/25 08/19/25 (Jardiance) acetaminophen 650 mg 650 mg PO TID PRN pain 04/11/25 08/19/25 tablet,extended release carvedilol 6.25 mg tablet 6.25 mg PO BIDWM 08/06/25 08/19/25 Previous Rx's ?Medication ?Instructions ?Recorded spironolactone 25 mg tablet 25 mg PO DAILY 90 days #90 tabs 04/20/23 apixaban 5 mg tablet (Eliquis) 5 mg PO BID #60 tabs 03/28/25 sacubitril 24 mg-valsartan 26 mg 1 tab PO BID #180 tabs 06/18/25 tablet (Entresto) amiodarone 200 mg tablet 200 mg PO DAILY #30 tabs 08/19/25 furosemide 40 mg tablet 80 mg (2 x 40 mg) PO BID #180 tabs 08/22/25 Allergies Allergy/AdvReac Type Severity Reaction Status Date / Time No Known Allergies Allergy Verified 08/25/25 23:28 Review of Systems Review of Systems: Yes all other systems are reviewed and are negative [facility] Past Medical History Medical History (Updated 08/26/25 @ 02:51 by Tariq Perez MD) ICD (implantable cardioverter-defibrillator) in place Acute CHF Atrial flutter by electrocardiogram Cardiomyopathy Anomalous coronary artery origin Atherosclerotic cardiovascular disease Heart failure with reduced ejection fraction HLD (hyperlipidemia) Acute on chronic combined systolic and diastolic CHF (congestive heart failure) Nonischemic cardiomyopathy CAD (coronary artery disease) Hypertension Pacemaker Surgical History Stented coronary artery S/P cardiac cath Hx of cardiac catheterization Family History Family History Father No problems noted. Mother No problems noted. Social History Social History Household Members: None Household Members Other:: Dog Housing: Apartment Do you presently have visiting nurse or other home services: No Alcohol intake: current Alcohol intake frequency: a few times a month Alcohol type: beer Patient Tobacco Use Status: Never used Tobacco e-Cigarette/Vaping Use: Never Used Second Hand Smoke Exposure: No Substance Use Type: Marijuana Advance Directives: Yes Advance Directives on File: Yes Advance Directives Date on File: 10/02/24 Do you have a plan to hurt others: No Plan service: No Current occupational status: disabled Physical Exam Vital Signs: Vital Signs: Last Vital Signs Temp 97.5 F 08/25/25 23:24 Pulse 122 H 08/25/25 23:24 Resp 37 H 08/25/25 23:24 BP 115/76 08/26/25 00:57 Pulse Ox 98 08/25/25 23:24 O2 Del Method Room Air 08/25/25 23:24 BMI result Body Mass Index 28.1 Const: Other: The patient is a 70-year-old male who was awake and alert and looked somewhat uncomfortable. Certainly he was complaining of feeling uncomfortable a great deal. He did not appear in obvious in obvious respiratory distress HEENT: Other: Face is symmetrical, mucous membranes moist Eyes: General: appearance normal, both eyes and all related structures Neck: Other: The patient has neck pain seemed pump. Resp: Other: Mild increased work of breathing. He was mildly tachypneic. Crackles at the bases. Cardio: Other: The patient was tachycardic. His heart rate was fairly regular. I do not hear a murmur. GI: Other: Abdomen is soft and nontender Skin: Other: Skin was pale. Neuro: Other: The patient seems fatigued but is awake and alert. Cranial nerves are grossly intact. He moves his extremities symmetrically. Extrem: Other: No significant peripheral edema. Medications Administered Discontinued Medications Generic Name Dose Route Start Last Admin Trade Name Freq PRN Reason Stop Dose Admin Furosemide 80 mg 08/26/25 00:33 08/26/25 00:57 Furosemide 100 Mg/10 Ml Vial IVPUSH 08/26/25 00:34 80 mg ONCE ONE Administration Protocol Morphine Sulfate 2 mg 08/25/25 23:53 08/26/25 00:11 Morphine Sulfate 4 Mg/Ml Cartridge IVPUSH 08/25/25 23:54 2 mg ONCE ONE Administration Protocol Medical Decision Making Medical Decision Making MDM Narrative: The patient is a 70-year-old male with a an own very poor ejection fraction (10-15%). He also has a pacer/ICD. He presents with 2 hours of chest discomfort and shortness of breath which I suspect is typical of his exacerbations of congestive heart failure. I believe he was most recently hospitalized at [facility]. He was hospitalized from August 13 to August 15 for what I think was a similar presentation. Before that he has been hospitalized at this hospital with a similar presentation from August 06 to August 08. The patient was tachypneic and hypertensive and tachycardic. He was given IV morphine, sublingual nitroglycerin, and furosemide. He felt considerably better. His tachycardia resolved. His blood pressure lowered. He says that he often has low blood pressures when he is feeling well. The patient's troponins are flat. His EKG shows a paced rhythm. I think this is an exacerbation of his chronic congestive heart failure rather than an acute coronary syndrome. He will be admitted again for further care. Lab Data 08/25/25 23:40 08/25/25 23:40 Labs: Lab Results 08/25/25 08/26/25 Range/Units 23:40 01:49 WBC 7.9 (4.8-10.8) X10*3/uL RBC 4.55 L (4.60-5.80) X10*6/uL Hgb 13.5 L (14.0-18.0) g/dl Hct 41.6 L (42.0-52.0) % MCV 91.4 (80.0-98.0) fL MCH 29.7 (27.0-33.0) pg MCHC 32.5 (31.0-36.0) g/dl RDW 13.7 (11.0-16.0) % Plt Count 240 (160-400) X10*3/uL MPV 11.2 (9.4-12.4) fL Immature Gran % (Auto) 0.4 (0.0-0.4) % Neut % (Auto) 70.6 (45-73) % Lymph % (Auto) 23.3 (20-40) % Erie % (Auto) 4.8 (2-11) % Eos % (Auto) 0.3 (0-4) % Baso % (Auto) 0.6 (0-2) % Lymph # (Auto) 1.8 (1.2-4.9) X10*3/uL Erie # (Auto) 0.4 (0.1-1.2) X10*3/uL Eos # (Auto) 0.0 (0.0-0.4) X10*3/uL Baso # (Auto) 0.1 (0.0-0.2) X10*3/uL Abs Immat Gran (auto) 0.03 (0.00-0.03) X10*3/uL Absolute Neuts (auto) 5.6 (2.0-8.3) x10*3/uL Absolute Nucleated RBC 0.000 (0.0-0.012) X10*3/uL Nucleated RBC % (auto) 0.0 (0.0-0.2) /100WBC Sodium 133 L (135-145) mmol/L Potassium 4.2 (3.3-5.1) mmol/L Chloride 98 (96-108) mmol/L Carbon Dioxide 23 (22-29) mmol/L Anion Gap 16 (12-20) BUN 23 H (9-16) mg/dL Creatinine 1.16 (0.5-1.4) mg/dL Estim Creat Clear Calc 59.3 Estimated GFR > 60 Random Glucose 175 H (60-115) mg/dL Calcium 9.0 (8.4-10.2) mg/dL Total Bilirubin 1.3 H (0.0-1.0) mg/dL AST 34 (5-37) U/L ALT 29 (0-40) U/L Alkaline Phosphatase 73 (39-117) U/L Troponin I High Sens 22.7 18.7 (<3.5-35.0) ng/L NT-Pro-B Natriuret Pep 14701.1 H (<300) pg/mL Total Protein 7.3 (6.5-8.0) g/dL Albumin 4.6 (3.5-5.0) g/dL Critical Care Time Critical Care Time Critical Care Time: Yes Total Critical Care Time: 35 Attestation: Acute congestive heart failure Discharge Plan Discharge Patient Disposition: Admitted As Inpatient Print Language: Moldovan
--- OUTSIDE RECORDS SUMMARY | 2025-08-25 23:45 | XMS_ITS | Patient Health Record ---
Author Organization [facility] Address [address] [place] [address] Care Team Providers Care Risk Tech Name Role Phone Imelda Sepulveda Primary Care Provider Unavailab Fabio Amin Unavailable [phone] Reason For Referral No Information Medications Medication [...] No Encounters Encounter Location Date Provider Diagnosis [facility] [address] [place] [address] 11/15/2024 Fabio Silverio Plan Of Treatment No Information Insurance Providers Payer Name Payer Address Payer Phone Subscriber Number Group Number Insured Name Patient Relationship to Insured Coverage Start Date Coverage End Date [facility] CCA SCO Claims [address] [place] [id number] Trenton Dasilva Self - patient is the insured Medical (General) History Medical History History ICD Code Heart disease High Blood Pressure Stroke Surgical History Surgery Date(Month/Year) cardiac pacemeker
[2025-08-25 23:53] LABS: MANUAL DIFF FLAG NO
[2025-08-25 23:55] LABS: Hematocrit 41.6 % (42.0-52.0); Hemoglobin 13.5 g/dl (14.0-18.0); Imm Gran Abs Auto 0.03 X10*3/uL (0.00-0.03); Imm Gran Pct Auto 0.4 % (0.0-0.4); Lymphocytes Absolute Auto 1.8 X10*3/uL (1.2-4.9); Mean Corpuscular HGB Conc 32.5 g/dl (31.0-36.0); Mean Corpuscular Hemoglobin 29.7 pg (27.0-33.0); Mean Corpuscular Volume 91.4 fL (80.0-98.0); NRBC Abs Auto 0.000 X10*3/uL (0.0-0.012); NRBC Pct Auto 0.0 /100WBC (0.0-0.2); Platelet Count 240 X10*3/uL (160-400); Red Blood Count 4.55 X10*6/uL (4.60-5.80); White Blood Count 7.9 X10*3/uL (4.8-10.8)
[2025-08-26] VITALS (31 sets, daily range): BP systolic 103–141; BP diastolic 72–106; PULSE 77–134; RESP 5–34; TEMP 36.1–36.9; O2SAT 92–100; BMI 26.4
--- NOTE | 2025-08-26 | ECG_ITS ---
Test Reason : CP Blood Pressure : */* mmHG Vent. Rate : 123 BPM Atrial Rate : 123 BPM P-R Int : * ms QRS Dur : 138 ms QT Int : 398 ms P-R-T Axes : * -83 87 degrees QTcB Int : 569 ms Ventricular-paced rhythm with occasional supraventricular complexes Abnormal ECG When compared with ECG of 25-Aug-2025 23:22, Vent. rate has increased by 4 bpm Referred By: Fadumo Gilliland Electronically Signed By: Zuhair Hernandes
--- NOTE | 2025-08-26 00:03 | PC.NURSE ---
PT comes from waiting room with complaints of CP that started one hour ago. Pain is through chest. PT had pacemaker placed in May 2025 and is on blood thinners. PT wolof speaking EKG completed and given to provider for review, 20g IV line placed in left AC. Labs drawn and sent down to lab awaiting results. Provider at bedside. Plan of care ongoing
[2025-08-26 00:09] LABS: Alanine Aminotransferase 29 U/L (0-40); Albumin Level 4.6 g/dL (3.5-5.0); Alkaline Phosphatase 73 U/L (39-117); Anion Gap 16 (12-20); Aspartate Amino Transferase 34 U/L (5-37); Blood Urea Nitrogen 23 mg/dL (9-16); Calcium 9.0 mg/dL (8.4-10.2); Carbon Dioxide 23 mmol/L (22-29); Chloride 98 mmol/L (96-108); Creatinine Clr Calc Pharmacy 59.3; Estimated Glomerular Filt Rate > 60; Potassium 4.2 mmol/L (3.3-5.1); Sodium 133 mmol/L (135-145); Total Protein 7.3 g/dL (6.5-8.0)
[2025-08-26 00:15] LABS: NT Pro B Type Natriuretic Pept 10375.1 pg/mL (<300); Troponin-I High Sensitivity 22.7 ng/L (<3.5-35.0)
--- NOTE | 2025-08-26 00:16 | PC.NURSE ---
PT medicated as per dec. PT o2 at 88% on RA, repositioned pt with no effect. Placed pt on 2L nC. O2 improved to 93%. Provider aware
[2025-08-26] MEDS: Furosemide 100 MG/10 ML VIAL 80 MG IVPUSH ×3 (00:57→19:48)
--- NOTE | 2025-08-26 01:09 | PC.NURSE ---
PT medicated as per DEC. Provided urinal. Call henson within reach.
[2025-08-26 02:21] LABS: Troponin-I High Sensitivity 18.7 ng/L (<3.5-35.0)
--- NOTE | 2025-08-26 03:16 | P.HPHOSP_ITS ---
History of Present Illness Date of Service: 08/26/25 Attending physician on admission: Jalyn Lemos Chief Complaint: Shortness of breath Trenton Wallace is a 70 years old man with a past medical history significant for a flutter, cardiomyopathy/HFrEF 10-15% s/p AICD, CAD and hyperlipidemia presents to ED after experiencing sudden onset of shortness on breath, palpitations associated with retrosternal chest pressure. He was watching sports when this happened. He also complained of cough. Denied fever or chills. He denied dizziness, diaphoresis or loss of consciousness. He denied alcohol abuse, illicit drug use or tobacco smoking. He denied diet indiscretion. He denied firing of ICD. In the ED he was found to have marked tachycardia and tachypnea. Last blood pressure is 115/76. He is currently on supplemental oxygen via nasal cannula. CBC showed white count of 7.9. Hemoglobin is 13.7 and platelets 240. There are no significant electrolyte imbalances. BUN is 23 and creatinine 1.16. LFTs are unremarkable except for mild elevation of bilirubin 1.3. Troponin is 22.7 [place] 18[place] [address].1. CXR consistent with moderate CHF/fluid overload. ECG showed ventricular paced rhythm, heart rate 119 beats per minute. ED tx: Morphine 2 g IV, furosemide 80 mg IV [facility] Medical History (Updated 08/26/25 @ 02:51 by Tariq Perez MD) ICD (implantable cardioverter-defibrillator) in place Acute CHF Atrial flutter by electrocardiogram Cardiomyopathy Anomalous coronary artery origin Atherosclerotic cardiovascular disease Heart failure with reduced ejection fraction HLD (hyperlipidemia) Acute on chronic combined systolic and diastolic CHF (congestive heart failure) Nonischemic cardiomyopathy CAD (coronary artery disease) Hypertension Pacemaker Family History Father No problems noted. Mother No problems noted. Surgical History Stented coronary artery S/P cardiac cath Hx of cardiac catheterization Social History Household Members: None Household Members Other:: Dog Housing: Apartment Do you presently have visiting nurse or other home services: No Alcohol intake: current Alcohol intake frequency: a few times a month Alcohol type: beer Patient Tobacco Use Status: Never used Tobacco e-Cigarette/Vaping Use: Never Used Second Hand Smoke Exposure: No Substance Use Type: Marijuana Advance Directives: Yes Advance Directives on File: Yes Advance Directives Date on File: 10/02/24 Do you have a plan to hurt others: No Plan service: No Current occupational status: disabled Meds Allergies Allergy/AdvReac Type Severity Reaction Status Date / Time No Known Allergies Allergy Verified 08/25/25 23:28 Active Medications: Current Medications Acetaminophen (Acetaminophen 325 Mg Tablet) 650 mg PO Q6H PRN PRN Reason: Pain, Mild 1-3,fever,headache Calcium Carbonate (Calcium Carbonate 750 Mg Tab.Chew) 750 mg PO Q4H PRN PRN Reason: Heartburn Furosemide (Furosemide 100 Mg/10 Ml Vial) 80 mg IVPUSH BID@0900,1800 [facility]; Protocol Magnesium Hydroxide (Milk Of Magnesia 30 Ml Oral.Susp) 30 ml PO DAILY PRN PRN Reason: Constipation Melatonin (Melatonin 3 Mg Tablet) 6 mg PO BEDTIME PRN PRN Reason: Insomnia Nitroglycerin (Nitroglycerin 0.4 Mg Tab.Subl) 0.4 mg SUBLINGUAL Q5MX3 PRN PRN Reason: Chest Pain Sodium Chloride (0.9 % Sodium Chloride Flush 3 Ml Syringe) 3 ml IVFLUSH QSHIFT [facility] Home Medications ?Medication ?Instructions ?Recorded ?Confirmed ?Last Taken ?Type ezetimibe 10 mg tablet 10 mg PO DAILY 08/18/2007/2508/05/25 History rosuvastatin 40 mg tablet 40 mg PO BEDTIME 08/18/2008/05/25 History empagliflozin 10 mg tablet 10 mg PO DAILY 02/27/2508/05/25 History (Jardiance) acetaminophen 650 mg 650 mg PO TID PRN pain 04/1108/19/25 08/05/25 History tablet,extended release carvedilol 6.25 mg tablet 6.25 mg PO BIDWM 08/06/2508/05/25 History Physical Exam 2 Vital Signs and Narrative: Vital Signs: Last Vital Signs Temp 97.5 F 08/25/25 23:24 Pulse 122 H 08/25/25 23:24 Resp 37 H 08/25/25 23:24 BP 115/76 11/03/25 00:57 Pulse Ox 98 08/25/25 23:24 O2 Del Method Room Air 08/25/25 23:24 BMI result Body Mass Index 28.1 General: Alert, oriented, in no acute distress. Well nourished and cooperative. Afebrile. Nasal cannula in place. HEENT: Head normocephalic, atraumatic. PER, EOMI. Sclerae anicteric, conjunctiva clear. Oropharynx without erythema or exudate. Mucous membranes moist. Neck: Supple, no lymphadenopathy, or JVD. Heart: RRR, no murmurs, rubs or gallops. Lungs: Bibasilar crackles. No wheezing or rhonchi. Normal respiratory effort. Abdomen: Soft, non tenderness, nondistended, normoactive bowel sounds. No hepatosplenomegaly, masses or masses. Extremities: No calf tenderness bilaterally, no swelling Musculoskeletal: Full range of motion. No joint swelling, deformity, or tenderness. Normal muscle tone and strength. Skin: Warm/Dry. No pallor. No jaundice. Neurologic: Alert & oriented x4. Moving all extremities spontaneously. Normal speech. Psychological: Normal mood and affect. Thought process coherent. Results Labs 08/25/25 23:40 08/25/25 23:40 Labs: Laboratory Results - last 24 hr 08/25/25 08/26/25 23:40 01:49 MCV 91.4 MCH 29.7 MCHC 32.5 RDW 13.7 Plt Count 240 MPV 11.2 Immature Gran % (Auto) 0.4 Neut % (Auto) 70.6 Lymph % (Auto) 23.3 [place] % (Auto) 4.8 Eos % (Auto) 0.3 Baso % (Auto) 0.6 Lymph # (Auto) 1.8 [place] # (Auto) 0.4 Eos # (Auto) 0.0 Baso # (Auto) 0.1 Abs Immat Gran (auto) 0.03 Absolute Neuts (auto) 5.6 Absolute Nucleated RBC 0.000 Nucleated RBC % (auto) 0.0 Anion Gap 16 Estim Creat Clear Calc 59.3 Estimated GFR > 60 Random Glucose 175 H Calcium 9.0 Total Bilirubin 1.3 H AST 34 ALT 29 Alkaline Phosphatase 73 Troponin I High Sens 22.7 18.7 NT-Pro-B Natriuret Pep 10971.1 H Total Protein 7.3 Albumin 4.6 Assessment and Plan (1) Acute on chronic congestive heart failure: Status: Acute (2) Atrial flutter with rapid ventricular response: Status: Acute Plan Trenton Wallace is a 70 y/o man with a PMhx significant for aflutte/a-fibr, cardiomyopathy/HFrEF 10-15% s/p AICD, who presents with: Acute on chronic systolic congestive heart failure. Telemetry. Pulse oximetry. I's and o's. Daily weights. Low-salt diet. Supplemental O2 to keep O2 sats > 90%. Lasix 80 mg IV b.i.d.. Continue giardia Entresto and spironolactone. CAD/Chest pain. Troponin flat. Resolved after morphine. Continue statin and Plavix. ECG ventricular paced rhythm. Hx [id number], paroxysmal. Telemetry. Continue Eliquis, amiodarone and carvedilol. Hyperlipidemia. Continue statin and ezetimibe. Code status: Full DVT prophylaxis: On Eliquis med rec pending Patient will need hospitalization for at least 2 midnights for acute on chronic systolic congestive heart failure treatment with IV diuresis, supplemental oxygen and continuous monitoring of vital signs and cardiac rhythm. Quality Stroke Does the patient have a stroke diagnosis?: No VTE Prior VTE?: No VTE Risk Level:: Medical - moderate - high VTE Device Contraindication: Treatment Not Indicated VTE Drug Contraindication: N/A - Med Ordered
[2025-08-26 03:51] LABS: MANUAL DIFF FLAG NO
[2025-08-26 03:52] LABS: Hematocrit 38.3 % (42.0-52.0); Hemoglobin 12.8 g/dl (14.0-18.0); Imm Gran Abs Auto 0.02 X10*3/uL (0.00-0.03); Imm Gran Pct Auto 0.2 % (0.0-0.4); Lymphocytes Absolute Auto 1.0 X10*3/uL (1.2-4.9); Mean Corpuscular HGB Conc 33.4 g/dl (31.0-36.0); Mean Corpuscular Hemoglobin 30.1 pg (27.0-33.0); Mean Corpuscular Volume 90.1 fL (80.0-98.0); NRBC Abs Auto 0.000 X10*3/uL (0.0-0.012); NRBC Pct Auto 0.0 /100WBC (0.0-0.2); Platelet Count 200 X10*3/uL (160-400); Red Blood Count 4.25 X10*6/uL (4.60-5.80); White Blood Count 9.3 X10*3/uL (4.8-10.8)
[2025-08-26 04:08] LABS: Anion Gap 16 (12-20); Blood Urea Nitrogen 21 mg/dL (9-16); Calcium 8.6 mg/dL (8.4-10.2); Carbon Dioxide 22 mmol/L (22-29); Chloride 100 mmol/L (96-108); Creatinine Clr Calc Pharmacy 87.1; Estimated Glomerular Filt Rate > 60; Potassium 3.4 mmol/L (3.3-5.1); Sodium 135 mmol/L (135-145)
--- NOTE | 2025-08-26 07:58 | PC.NURSE ---
patient appears to have a 7-beat run of vtach, patient denies cp/sob. has been resting quietly in the room, no signs/symptoms of distress noted. hospitalist notified.
[2025-08-26] MEDS: 0.9 % Sodium Chloride Flush 3 ML SYRINGE IVFLUSH ×3 (08:33→21:49)
--- NOTE | 2025-08-26 10:25 | PHA.MEDREC ---
Addendum entered by Feliz Linares PharmD 08/26/25 10:33: reviewed Original Note: Pharmacy Consult ? Medication Reconciliation Pharmacy has completed the medication reconciliation. Spoke with pt care services manager (Marta) and she was able to confirm pt medications. 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 ; it looks like it has been getting filled consistently for every 3 moths and last filled was 08/05 for 90 days.
--- NOTE | 2025-08-26 11:29 | PC.NURSE ---
Patient complaining of chest pain and increasing shortness of breath. Patient found to be diaphoretic, tachycardic, and tachypneic. Nitro given x 3. Patient reports improvement in pain after Nitro. Repeat EKG done. Hospitalist and Sausage Stuffer at bedside.
--- NOTE | 2025-08-26 11:55 | PM.CNCAR ---
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 He was seen in July when he presented with chest pressure and palpitations. At that time he did not have any significant arrhythmia but was significantly volume overloaded with elevated BNP levels. He was diuresed and eventually discharged home because he was feeling fine. He is presenting again with chest pressure, shortness of breath and fatigue. His telemetry is showing tachycardia with heart rate 126 beats per minute. In between he also has paced rhythm which appears to be PMT. He is diaphoretic and very sick appearing. He has a very similar presentation few months ago when I cardioverted him in the emergency department. He was given adenosine 6 mg and 12 mg without any changes in the rhythm. After that we decided to do cardioversion and with the help of ER physician the patient was sedated and was cardioverted. His device interrogation did show sinus tachycardia after cardioversion because we were unsure whether we have successfully converted him because he continued to be tachycardic in low 120s afterwards and his heart rate in arrhythmia was also in 120s. He was given BiPAP after the cardioversion. He was subsequently seen and was feeling reasonably well. [facility] Past Medical History Medical History (Updated 08/26/25 @ 15:43 by Zuhair Hernandes MD) ICD (implantable cardioverter-defibrillator) in place Acute CHF Atrial flutter by electrocardiogram Cardiomyopathy Anomalous coronary artery origin Atherosclerotic cardiovascular disease Heart failure with reduced ejection fraction HLD (hyperlipidemia) Acute on chronic combined systolic and diastolic CHF (congestive heart failure) Nonischemic cardiomyopathy CAD (coronary artery disease) Hypertension Pacemaker Family History Family History Father No problems noted. Mother No problems noted. Surgical History Surgical History Stented coronary artery S/P cardiac cath Hx of cardiac catheterization Social History Social History Household Members: None Household Members Other:: Dog Housing: Apartment Do you presently have visiting nurse or other home services: No Alcohol intake: current Alcohol intake frequency: a few times a month Alcohol type: beer Patient Tobacco Use Status: Never used Tobacco Smoked in Last 30 Days: No e-Cigarette/Vaping Use: Never Used Second Hand Smoke Exposure: No Substance Use Type: Marijuana Advance Directives: Yes Advance Directives on File: Yes Advance Directives Date on File: 10/02/24 Do you have a plan to hurt others: No Plan service: No Current occupational status: disabled Meds Allergies Allergy/AdvReac Type Severity Reaction Status Date / Time No Known Allergies Allergy Verified 08/25/25 23:28 Active Medications: Current Medications Acetaminophen (Acetaminophen 325 Mg Tablet) 650 mg PO Q6H PRN PRN Reason: Pain, Mild 1-3,fever,headache Adenosine (Adenosine 6 Mg/2 Ml Vial) 6 mg IVPUSH STAT STA Stop: 08/26/25 11:55 Calcium Carbonate (Calcium Carbonate 750 Mg Tab.Chew) 750 mg PO Q4H PRN PRN Reason: Heartburn Furosemide (Furosemide 100 Mg/10 Ml Vial) 80 mg IVPUSH BID@0900,1800 [facility]; Protocol Last Admin: 08/26/25 11:05 Dose: 80 mg Magnesium Hydroxide (Milk Of Magnesia 30 Ml Oral.Susp) 30 ml PO DAILY PRN PRN Reason: Constipation Melatonin (Melatonin 3 Mg Tablet) 6 mg PO BEDTIME PRN PRN Reason: Insomnia Nitroglycerin (Nitroglycerin 0.4 Mg Tab.Subl) 0.4 mg SUBLINGUAL Q5MX3 PRN PRN Reason: Chest Pain Last Admin: 08/26/25 11:25 Dose: 0.4 mg Sodium Chloride (0.9 % Sodium Chloride Flush 3 Ml Syringe) [facility] Last Admin: 08/26/25 08:33 Dose: 3 ml Home Medications ?Medication ?Instructions ?Recorded ?Confirmed ?Last Taken ?Type ezetimibe 10 mg tablet 10 mg PO DAILY 08/18/20 08/26/25 08/25/25 History rosuvastatin 40 mg tablet 40 mg PO BEDTIME 08/18/20 08/26/25 08/25/25 History empagliflozin 10 mg tablet 10 mg PO DAILY 02/27/25 08/26/25 08/25/25 History (Jardiance) acetaminophen 650 mg 650 mg PO TID PRN pain 04/11/25 08/26/25 08/05/25 History tablet,extended release carvedilol 6.25 mg tablet 6.25 mg PO BIDWM 08/06/25 08/26/25 08/25/25 History Physical Exam Vital Signs: Vital Signs: Last Vital Signs Temp 98.1 F 08/26/25 07:49 Pulse 121 H 08/26/25 11:14 Resp 26 H 08/26/25 11:10 BP 123/100 H 08/26/25 11:14 Pulse Ox 98 08/26/25 11:10 O2 Del Method Nasal Cannula 08/26/25 11:10 O2 Flow Rate 2 08/26/25 11:10 BMI result Body Mass Index 28.1 GENERAL APPEARANCE: Distressed, short of breath, diaphoretic. NECK: no carotid bruit, + jugular venous distention. SKIN: no suspicious lesions, diaphoretic. HEART: no murmurs, regular rate and rhythm. Tachycardic. LUNGS: Crackles both lungs. ABDOMEN: soft, nontender. EXTREMITIES: no edema. PERIPHERAL PULSES: equal. NEUROLOGIC: No gross deficits, AAO X 3 Objective Labs and Meds 08/26/25 03:43 08/26/25 03:43 Lab results: Laboratory Results - last 24 hr 08/25/25 08/26/25 08/26/25 23:40 01:49 03:43 WBC 7.9 9.3 RBC 4.55 L 4.25 L Hgb 13.5 L 12.8 L Hct 41.6 L 38.3 L MCV 91.4 90.1 MCH 29.7 30.1 MCHC 32.5 33.4 RDW 13.7 13.7 Plt Count 240 200 MPV 11.2 10.7 Immature Gran % (Auto) 0.4 0.2 Neut % (Auto) 70.6 82.9 H Lymph % (Auto) 23.3 11.2 L [place] % (Auto) 4.8 5.4 Eos % (Auto) 0.3 0.1 Baso % (Auto) 0.6 0.2 Lymph # (Auto) 1.8 1.0 L [place] # (Auto) 0.4 0.5 Eos # (Auto) 0.0 0.0 Baso # (Auto) 0.1 0.0 Abs Immat Gran (auto) 0.03 0.02 Absolute Neuts (auto) 5.6 7.7 Absolute Nucleated RBC 0.000 0.000 Nucleated RBC % (auto) 0.0 0.0 Sodium 133 L 135 Potassium 4.2 3.4 Chloride 98 100 Carbon Dioxide 23 22 Anion Gap 16 16 BUN 23 H 21 H Creatinine 1.16 0.79 Estim Creat Clear Calc 59.3 87.1 Estimated GFR > 60 > 60 Random Glucose 175 H 115 Calcium 9.0 8.6 Total Bilirubin 1.3 H AST 34 ALT 29 Alkaline Phosphatase 73 Troponin I High Sens 22.7 18.7 NT-Pro-B Natriuret Pep 95981.1 H Total Protein 7.3 Albumin 4.6 Assessment and Plan (1) Acute on chronic congestive heart failure: Status: Acute (2) SVT (supraventricular tachycardia): Status: Acute Plan 70-year-old gentleman who is presenting with shortness of breath, chest pressure and diaphoresis. He has known history of atrial flutter and previously had ablation done. He also had upgrade of his device with a left bundle-branch area lead. I tried to overdrive pace him through the atrial lead but this was unsuccessful. Subsequently gave him 6 of adenosine followed by 12 mg of adenosine without any changes. Clinically he appeared to be quite sick and we decided to cardiovert him. He was shocked after sedation in the ER and converted to sinus tachycardia. This was slowly improving as he was on BiPAP. Device interrogation was done with the rep at bedside-he was in sinus tachycardia at the time of interrogation. No significant changes in programming were done. He did have PMT but the PVARP was already quite long and we decided not to change that. After discussion with the CCU team at [facility] I have decided transfer him for further assessment at [facility]. I think he needs EP evaluation to see if this supraventricular rhythm could be induced and ablated. He does not tolerate atrial arrhythmias well gets extremely sick. Increase amiodarone to 200 mg twice a day for now. Continue IV diuretics. Monitor electrolytes closely. He will be getting a bed at [facility] soon and will be transferred there. Thank you for allowing me to participate in the care of your patient. Please feel free to contact me if you have any questions. Critical care time 02:00 hour. Total time managing care of this patient today: 2 minutes. Procedures Date of Service Date of Service: 08/26/25
[2025-08-26 12:06] LABS: Troponin-I High Sensitivity 29.3 ng/L (<3.5-35.0)
--- NOTE | 2025-08-26 12:06 | PC.NURSE ---
Hotel Sales Manager at bedside. Interrogating pacer. Plan for Adenosine ?need for cardioversion.
[2025-08-26] MEDS: Adenosine 6 MG/2 ML VIAL 12 MG IVPUSH (12:16)
[2025-08-26] MEDS: Adenosine 6 MG/2 ML VIAL IVPUSH (12:16)
[2025-08-26] MEDS: Etomidate 20 MG/10 ML VIAL 16 MG IVPUSH (12:26)
--- NOTE | 2025-08-26 12:36 | W.ED.CONS.HO ---
Consult Details Consult Details: called to bedside by cardiology for emergent cardioversion, patient diaphoretic and labored and tachypnea and rales/wheezes on exam plan for etomidate - needed x 2 doses given shocked x 3 was bagged during procedure at my request given pre procedure resp status after procedure put on bipap given concern for CHF Procedures Procedural Sedation Indication: other (cardioversion by Cecilio) ASA Class: III Mallampati Class: II Time of Last PO Intake: 09:00 Preparation: surveillance monitor applied, pulse oximeter, capnometry used, supplemental O2 applied, reversal agents at bedside, suction/airway equipment at bedside and IV secured IV Etomidate dose (mg): 16 Patient Tolerated Procedure: well and no complications Complications: none Interventions: oxygen applied, airway repositioned and assist by BVM Additional Comments: patient was unstable and labored prior to cardioversion. I bagged him to prevent any worsening resp issues as he was already tachypneic, diaphoretic with audible wheezes. He was placed on bipap after for concern CHF.
--- NOTE | 2025-08-26 13:01 | ECG_ITS ---
Test Reason : CARDIOVERTED Blood Pressure : */* mmHG Vent. Rate : 117 BPM Atrial Rate : 117 BPM P-R Int : 148 ms QRS Dur : 144 ms QT Int : 344 ms P-R-T Axes : * 257 85 degrees QTcB Int : 479 ms Atrial-sensed ventricular-paced rhythm with occasional sinus complexes Abnormal ECG When compared with ECG of 26-Aug-2025 12:17, Sinus tachycardia has replaced the PMT Referred By: Zuhair Hernandes Electronically Signed By: Zuhair Hernandes
--- NOTE | 2025-08-26 13:35 | PC.NURSE ---
late entry: patient moved to ed bed 16 for potential cardioversion. verbal order from senior medical technologist for 6mg IV PUSH adenosine followed by 12mg IVPUSH adenosine. provider at bedside for medication administration, patient aware of plan of care. pacer pads placed on patient, crash cart at bedside. adenosine not effective for pt, senior medical technologist requesting cardioversion. respiratory at bedside as well as senior medical technologist and ED provider. crane manager utilized - patient speaks/understands italian however utilized to ensure understanding of procedure. patient placed 6L nasal cannula for cardioversion, total of 16mg IVPUSH etomidate given to patient. inital shock given at 150 joules, additional shock at 200 joules x2 for total of 3 shocks. patient initially bagged by respiratory/provider and placed on bipap. senior medical technologist at bedside to further interrogate pacemaker, repeat ekg obtained. patient currently remains on bipap, alert and oriented following all commands. awaiting further orders at this time - vss. family updated on events and plan of care.
--- NOTE | 2025-08-26 14:13 | PC.NURSE ---
housing inspectors at bedside, plan for transfer to [facility]. verbal order to remove bipap - placed back on 2L nasal cannula. patient denies cp/sob reports he feels better at this time. no longer diaphoretic. independently using urinal, family at bedside aware of plan.
--- NOTE | 2025-08-26 16:41 | HO.PM.IMPN ---
Subjective Subjective Date of Service: 08/26/25 Interval History: Had brief run of non-sustained VT this morning Continues to complain of chest pressure and SOB Currently appears diaphoretic and acutely ill; breathing labored; speaking in short 2-3 word sentences Pt is atrial-paced and tachycardic into the 130s Cardiology at bedside Review of Systems Review of Systems: Yes all other systems are reviewed and are negative Physical Exam Exam: Exam: General: AOx3, diaphoretic, ill-appearing Resp: Bibasilar crackles; labored and shallow breathing; speaking in 2-3 word sentences CVS: S1, S2, tachycardic GI: +BS, NT, no distention Skin: Warm, dry Neuro: Cranial nerves II-XII grossly intact bilaterally. Motor grossly intact bilaterally Extremities: No edema Psych: Calm, cooperative Vital Signs: Vital Signs: Last Vital Signs Temp 98.4 F 08/26/25 14:51 Pulse 92 08/26/25 14:51 Resp 20 08/26/25 14:51 BP 103/72 08/26/25 14:51 Pulse Ox 98 08/26/25 14:51 O2 Del Method Nasal Cannula 08/26/25 14:51 O2 Flow Rate 2 08/26/25 14:51 Oxygen Flow Rate 6 08/26/25 12:39 BMI result Body Mass Index 28.1 Objective Data Active Medications Acetaminophen (Acetaminophen 325 Mg Tablet) 650 mg PO Q6H PRN PRN Reason: Pain, Mild 1-3,fever,headache Calcium Carbonate (Calcium Carbonate 750 Mg Tab.Chew) 750 mg PO Q4H PRN PRN Reason: Heartburn Furosemide (Furosemide 100 Mg/10 Ml Vial) 80 mg IVPUSH BID@0900,1800 NATALIIA; Protocol Last Admin: 08/26/25 11:05 Dose: 80 mg Documented By: EMELI Magnesium Hydroxide (Milk Of Magnesia 30 Ml Oral.Susp) 30 ml PO DAILY PRN PRN Reason: Constipation Melatonin (Melatonin 3 Mg Tablet) 6 mg PO BEDTIME PRN PRN Reason: Insomnia Nitroglycerin (Nitroglycerin 0.4 Mg Tab.Subl) 0.4 mg SUBLINGUAL Q5MX3 PRN PRN Reason: Chest Pain Last Admin: 08/26/25 11:25 Dose: 0.4 mg Documented By: EMELI Sodium Chloride (0.9 % Sodium Chloride Flush 3 Ml Syringe) 3 ml IVFLUSH [facility] Last Admin: 08/26/25 08:33 Dose: 3 ml Documented By: EMELI Labs 08/26/25 03:43 08/26/25 03:43 Labs: Laboratory Results - last 24 hr 08/25/25 08/26/25 08/26/25 23:40 01:49 03:43 MCV 91.4 90.1 MCH 29.7 30.1 MCHC 32.5 33.4 RDW 13.7 13.7 Plt Count 240 200 MPV 11.2 10.7 Immature Gran % (Auto) 0.4 0.2 Neut % (Auto) 70.6 82.9 H Lymph % (Auto) 23.3 11.2 L L[place] % (Auto) 4.8 5.4 Eos % (Auto) 0.3 0.1 Baso % (Auto) 0.6 0.2 Lymph # (Auto) 1.8 1.0 L [place] # (Auto) 0.4 0.5 Eos # (Auto) 0.0 0.0 Baso # (Auto) 0.1 0.0 Abs Immat Gran (auto) 0.03 0.02 Absolute Neuts (auto) 5.6 7.7 Absolute Nucleated RBC 0.000 0.000 Nucleated RBC % (auto) 0.0 0.0 Anion Gap 16 16 Estim Creat Clear Calc 59.3 87.1 Estimated GFR > 60 > 60 Random Glucose 175 H 115 Calcium 9.0 8.6 Total Bilirubin 1.3 H AST 34 ALT 29 Alkaline Phosphatase 73 Troponin I High Sens 22.7 18.7 NT-Pro-B Natriuret Pep 46134.1 H Total Protein 7.3 Albumin 4.6 08/26/25 11:35 MCV MCH MCHC RDW Plt Count MPV Immature Gran % (Auto) Neut % (Auto) Lymph % (Auto) [place] % (Auto) Eos % (Auto) Baso % (Auto) Lymph # (Auto) [place] # (Auto) Eos # (Auto) Baso # (Auto) Abs Immat Gran (auto) Absolute Neuts (auto) Absolute Nucleated RBC Nucleated RBC % (auto) Anion Gap Estim Creat Clear Calc Estimated GFR Random Glucose Calcium Total Bilirubin AST ALT Alkaline Phosphatase Troponin I High Sens 29.3 D NT-Pro-B Natriuret Pep Total Protein Albumin Assessment and Plan (1) Acute on chronic congestive heart failure: Status: Acute (2) Atrial flutter with rapid ventricular response: Status: Acute Plan Trenton Wallace is a 70 y/o man with a PMhx significant for aflutte/a-fibr, cardiomyopathy/HFrEF 10-15% s/p AICD, who presents with: SVT HR in the 120-130s, pt ill-appearing, diaphoretic, chest pain on 08/26 Seen by cardiology who attempted atrial lead overdrive pace, then adenosine 6mg IV and then 12mg IV, all unsuccessful Pt then sedated and cardioverted in the ED; appeared in sinus tach after device interrogation, symptoms improved Cardiology [place] [facility] for possible [place] Pt has been accepted but still waiting on bed availability Increase amiodarone to 200mg bid Monitor on telemetry Acute on chronic systolic congestive heart failure Continue Lasix 80mg IV bid I/O, daily weight, low-salt diet Continue Jardiance, Entresto, and spironolactone. CAD/Chest pain Troponin mildly increased at 18.7-->29.3 Likely secondary to increased demand in setting of above Continue statin; pt no longer on Plavix Monitor on tele Hx [id number], paroxysmal Continue Eliquis, amiodarone, and carvedilol. Hyperlipidemia Continue statin and ezetimibe. Code status: Full DVT prophylaxis: On Eliquis Pt will require continued hospitalization for treatement of symptomatic SVT and CHF with IV Lasix and close monitoring of cardiac function. Pt is awaiting [place] [facility] [place] cardiac workup unavailable at this facility. Quality Stroke Does the patient have a stroke diagnosis?: No VTE Prior VTE?: No VTE Risk Level:: Medical - moderate - high VTE Device Contraindication: Treatment Not Indicated VTE Drug Contraindication: N/A - Med Ordered
--- NOTE | 2025-08-26 20:28 | HO.NURTONUR ---
history significant for a flutter, cardiomyopathy/HFrEF 10-15% s/p AICD, CAD and hyperlipidemia presents to ED after experiencing sudden onset of shortness on breath, palpitations associated with retrosternal chest pressure. He was watching sports when this happened. He also complained of cough. Denied fever or chills. He denied dizziness, diaphoresis or loss of consciousness. He denied alcohol abuse, illicit drug use or tobacco smoking. He denied diet indiscretion. He denied firing of ICD. prior today pt rec adenosine and was cardioverted in ER. HR stayed in 90's. HR 122 at this time 98% on o2@2lpm. IV lasix 80mg was given 1900.
--- NOTE | 2025-08-26 20:44 | PC.NURSE ---
pt was medicated w/metoprolol prior to leaving floor HR 103
[2025-08-26 21:16] LABS: Glucose, Whole Blood 178 mg/dL (60-115)
--- NOTE | 2025-08-26 21:16 | PM.EVENT ---
Event Note Date of Service: 08/26/25 Event Note: Rapid response note: Chest pain: Around 21:00 rapid response was called as patient was complaining of chest pain. Patient reported chest pain during and was diaphoretic to the RN when rapid response was called in. When I went in there patient reported more of an abdominal pain and chest pain. Patient was given sublingual nitroglycerin and Dilaudid EKG is unchanged from prior Order stat labs including troponins, D-dimer, chemistry We will also obtain CT abdomen Cardiology follow up in a.m. Time Spent With Patient Time: Total time managing care of this patient today ____ minutes.
[2025-08-26 21:59] LABS: D Dimer High Sensitivity 517 NG/ML
[2025-08-26 22:03] LABS: Anion Gap 18 (12-20); Blood Urea Nitrogen 24 mg/dL (9-16); Calcium 9.0 mg/dL (8.4-10.2); Carbon Dioxide 22 mmol/L (22-29); Chloride 102 mmol/L (96-108); Creatinine Clr Calc Pharmacy 56.1; Estimated Glomerular Filt Rate > 60; Potassium 3.6 mmol/L (3.3-5.1); Sodium 138 mmol/L (135-145)
[2025-08-26 22:11] LABS: Troponin-I High Sensitivity 42.7 ng/L (<3.5-35.0)
[2025-08-27 01:49] LABS: Troponin-I High Sensitivity 33.8 ng/L (<3.5-35.0)
[2025-08-27 03:07] VITALS: BP 141/79; PULSE 65; RESP 18; TEMP 36.2; O2SAT 95
[2025-08-27 07:35] LABS: Hematocrit 37.8 % (42.0-52.0); Hemoglobin 12.7 g/dl (14.0-18.0); Mean Corpuscular HGB Conc 33.6 g/dl (31.0-36.0); Mean Corpuscular Hemoglobin 30.5 pg (27.0-33.0); Mean Corpuscular Volume 90.6 fL (80.0-98.0); NRBC Abs Auto 0.000 X10*3/uL (0.0-0.012); NRBC Pct Auto 0.0 /100WBC (0.0-0.2); Platelet Count 191 X10*3/uL (160-400); Red Blood Count 4.17 X10*6/uL (4.60-5.80); White Blood Count 6.9 X10*3/uL (4.8-10.8)
[2025-08-27 07:57] VITALS: BP 100/67; PULSE 78; RESP 18; TEMP 36.2; O2SAT 99
[2025-08-27 07:58] LABS: Anion Gap 15 (12-20); Blood Urea Nitrogen 25 mg/dL (9-16); Calcium 8.6 mg/dL (8.4-10.2); Carbon Dioxide 26 mmol/L (22-29); Chloride 101 mmol/L (96-108); Creatinine Clr Calc Pharmacy 63.5; Estimated Glomerular Filt Rate > 60; Magnesium 2.2 mg/dL (1.6-2.6); Potassium 3.6 mmol/L (3.3-5.1); Sodium 138 mmol/L (135-145)
[2025-08-27 08:22] VITALS: BP 109/72; PULSE 78
--- NOTE | 2025-08-27 08:22 | MHC.CM.PN ---
CM met with Patient at bedside and addressed IMM with him, providing Patient with the original and a copy has been placed on the chart. Patient lives alone in an apartment, he uses a walker to assist with mobility, and he has a [employer] [facility]. Patient may benefit from a new VNA R/T CHF; CM has initiated and will follow for dc planning. PCP is Dr. Imelda Sepulveda and Daughter vs [employer] will transport @ dc.
[2025-08-27 08:28] VITALS: BP 109/72
[2025-08-27] MEDS: Sacubitril/Valsartan 24/26 1 TAB TABLET PO (08:28)
[2025-08-27] MEDS: Furosemide 100 MG/10 ML VIAL 80 MG IVPUSH (08:28)
[2025-08-27] MEDS: 0.9 % Sodium Chloride Flush 3 ML SYRINGE IVFLUSH (08:39)
--- NOTE | 2025-08-27 10:18 | PM.DS ---
DS: Providers Provider Date of Service: 08/27/25 Date of admission: 08/26/25 02:55 Date of discharge: 08/27/25 Primary care physician: Imelda Sepulveda MD Consults: 08/26/25 09:14 Consult to Cardiology Routine Consulting Provider: [facility] Reason for consultation: CHF, non-sustained VT DS: Transfer Hospital Acceptance Reason for Transfer: Pt will be transferred to [facility] for EP evaluation for possible ablation Name of Facility: [facility] DS: Diagnosis Discharge Diagnosis (1) Acute on chronic congestive heart failure: Status: Acute (2) Atrial flutter with rapid ventricular response: Status: Acute DS: Summary Hospital Course Hospital Course: From admission HPI: Date of Service: 08/26/25 Attending physician on admission: Jalyn Lemos Chief Complaint: Shortness of breath Trenton Wallace is a 70 years old man with a past medical history significant for a flutter, cardiomyopathy/HFrEF 10-15% s/p AICD, CAD and hyperlipidemia presents to ED after experiencing sudden onset of shortness on breath, palpitations associated with retrosternal chest pressure. He was watching sports when this happened. He also complained of cough. Denied fever or chills. He denied dizziness, diaphoresis or loss of consciousness. He denied alcohol abuse, illicit drug use or tobacco smoking. He denied diet indiscretion. He denied firing of ICD. In the ED he was found to have marked tachycardia and tachypnea. Last blood pressure is 115/76. He is currently on supplemental oxygen via nasal cannula. CBC showed white count of 7.9. Hemoglobin is 13.7 and platelets 240. There are no significant electrolyte imbalances. BUN is 23 and creatinine 1.16. LFTs are unremarkable except for mild elevation of bilirubin 1.3. Troponin is 22.7 [place] [address].1. CXR consistent with moderate CHF/fluid overload. ECG showed ventricular paced rhythm, heart rate 119 beats per minute. ED tx: Morphine 2 g IV, furosemide 80 mg IV Hospital course Pt was admitted to the hospital for CHF exacerbation in the setting of marked tachycardia and tachypnea, and was treated with Lasix 80 mg IV b.i.d.. Troponins were initially flat but then with mild increase from 18.7-->29.3. Hospital course was complicated by symptomatic and sustained SVT that required emergent cardiology consultation. Yesterday morning pt was tachycardic in the 120-130s and pt appeared ill, diaphoretic, and complained of 10/10 substernal chest pain. Pt with pacemaker in place; Cardiology 1st attempted atrial lead overdrive pacing and then adenosine 6 mg IV followed by 12 mg IV, all attempts which were unsuccessful. Pt was then sedated in the ED with successful cardiovertion and improvement in pt's symptoms. He was temporarily placed on BiPAP post-cardioversion. Cardiology then made arrangements to transfer to [facility] [place] and possible ablation. Pt again became symptomatic at 21:00 last night, complaining of chest pain, diaphoresis, and tachycardia. Pt was given sublingual nitroglycerin and Dilaudid to good effect. Additional workup at that time was negative for acute abnormality, including CT of abdomen and labs. Troponins flat, CXR showing likely mild CHF. This morning pt was seen resting comfortably in bed. Denied any SOB or chest pain. Reports continues to feel fatigued and tired. Patient's amiodarone was increased to 200 mg b.i.d.. The pt now has been available at [facility] [place] and will be transferred there for additional workup and monitoring. Additional details concerning hospital stay as indicated below. SVT HR in the 120-130s, pt ill-appearing, diaphoretic, chest pain on 08/26 Seen by cardiology who attempted atrial lead overdrive pace, then adenosine 6mg IV and then 12mg IV, all unsuccessful Pt then sedated and cardioverted in the ED; appeared in sinus tach after device interrogation, symptoms improved Cardiology arranged for transfer to [facility] [place] EP evaluation for possible ablation Pt has been accepted but still waiting on bed availability Increase amiodarone to 200mg bid Monitor on telemetry Acute on chronic systolic congestive heart failure On Lasix 80mg IV bid I/O, daily weight, low-salt diet Continue Jardiance, Entresto, and spironolactone. CAD/Chest pain Troponin mildly increased at 18.7-->29.3 -->42.7-->33.8 Likely type 2 in the setting of increased demand due to above above Continue statin; pt no longer on Plavix Monitored on tele ?Abd pain CT of abd/pelvis negative for acute abnormality Hx [id number], paroxysmal Continue Eliquis, amiodarone, and carvedilol. Hyperlipidemia Continue statin and ezetimibe. Code status: Full DVT prophylaxis: On Eliquis Time Attestation Discharge Coordination Time (in mins): 35 Quality: Safe Use of Opioids Does Pt have an Active Cancer Diagnosis on the Problem List?: No Quality: Stroke Does the patient have a stroke diagnosis?: No Physical Exam Exam: Exam: General: AOx3, no acute distress. Resting comfortably in bed Resp: CTA bilaterally CVS: S1, S2, RRR GI: +BS, NT, no distention Skin: Warm, dry Neuro: Cranial nerves II-XII grossly intact bilaterally. Motor grossly intact bilaterally Extremities: No edema Psych: Appropriate affect Vital Signs: Vital Signs: Last Vital Signs Temp 97.1 F 08/27/25 07:57 Pulse 78 08/27/25 08:22 Resp 18 08/27/25 07:57 BP 109/72 08/27/25 08:28 Pulse Ox 99 08/27/25 07:57 O2 Del Method Nasal Cannula 08/27/25 07:57 O2 Flow Rate 2 08/27/25 07:57 Oxygen Flow Rate 2 08/26/25 22:25 BMI result Body Mass Index 26.4 DS: Data Data Completed and Pending Completed studies during hospitalization [Text1]: Procedures Christian of Cardiac Rhythm, Single (04/11/25) Labs on day of discharge: Laboratory Results - last 24 hr 08/26/25 08/26/25 08/26/25 11:35 20:57 21:47 WBC RBC Hgb Hct MCV MCH MCHC RDW Plt Count MPV Absolute Nucleated RBC Nucleated RBC % (auto) D-Dimer High Sensitivty 517 Sodium 138 Potassium 3.6 Chloride 102 Carbon Dioxide 22 Anion Gap 18 BUN 24 H Creatinine 1.12 Estim Creat Clear Calc 56.1 Estimated GFR > 60 POC Glucose 178 H Random Glucose 186 H Calcium 9.0 Magnesium Troponin I High Sens 29.3 D 42.7 H 08/27/25 08/27/25 01:18 07:20 WBC 6.9 RBC 4.17 L Hgb 12.7 L Hct 37.8 L MCV 90.6 MCH 30.5 MCHC 33.6 RDW 14.1 Plt Count 191 MPV 10.6 Absolute Nucleated RBC 0.000 Nucleated RBC % (auto) 0.0 D-Dimer High Sensitivty Sodium 138 Potassium 3.6 Chloride 101 Carbon Dioxide 26 Anion Gap 15 BUN 25 H Creatinine 0.99 Estim Creat Clear Calc 63.5 Estimated GFR > 60 POC Glucose Random Glucose 106 Calcium 8.6 Magnesium 2.2 Troponin I High Sens 33.8 Discharge Plan Discharge Anticipated Discharge Date/Time: 08/27/25 10:36 Patient Disposition: Xfer Acute Care Hospital Discharge Diagnosis: Acute CHF exacerbation in the setting of symptomatic SVT Referrals: Imelda Sepulveda MD [Primary Care Provider, Internal Medicine] - 1 Week Discharge Medications: Continued spironolactone 25 mg tablet 25 mg PO DAILY 90 Days Qty: 90 3RF Entresto 24-26 mg tablet 1 tab PO BID Qty: 180 3RF furosemide 40 mg tablet 80 mg PO BID Qty: 180 3RF Jardiance 10 mg tablet 10 mg PO DAILY acetaminophen 650 mg tablet extended release 650 mg PO TID PRN (Reason: pain) carvedilol 6.25 mg tablet 6.25 mg PO BIDWM Rx Instructions: must administer with a meal/food. Take one tablet twice a day rosuvastatin 40 mg tablet 40 mg PO BEDTIME ezetimibe 10 mg tablet 10 mg PO DAILY Eliquis 5 mg tablet 5 mg PO BID Qty: 60 5RF Rx Instructions: New amiodarone 200 mg tablet 200 mg PO DAILY Qty: 30 2RF Discharge Orders: Discharge Order (Routine); Ordered 08/27/25 Ordered By: Fadumo Gilliland Activity on Discharge: As tolerated Stand Alone Forms: Patient Portal Discharge page Print Language: Persian Care Plan Goals: See below Health Concerns: CHF exacerbation SVT Atrial flutter with RVR Plan of Treatment: You were admitted to the hospital for CHF exacerbation in the setting of supraventricular tachycardia. You were initially treated with IV diuretics but symptoms and tachycardia remained. You were seen and evaluated cardiology who attempted to treat you with both pacemaker changes as well as medications, both methods which were unsuccessful. You were eventually sedated and successfully cardioverted in the ED. Given the likelihood of symptoms and arrhythmia returning, cardiology made arrangements for you to be transferred to [facility] for additional evaluation and possible ablation. -- you were amiodarone has temporarily been increased to 100 mg twice a day -- you were currently being treated with Lasix 80 mg IV twice a day -- the rest of your medications has been continued, and will be managed by [facility] upon transfer Assessment: See discharge summary
--- NOTE | 2025-08-27 10:46 | MHC.CM.PN ---
Addendum entered by Shannan Kothari 08/27/25 11:53: The [facility] booking # for transport is [phone]. Original Note: Patient will be transferred to [facility].
--- NOTE | 2025-08-27 10:47 | PM.PNCARD ---
Subjective Subjective Date of Service: 08/27/25 Interval history: Seen examined at bedside. He is feeling better. Waiting for a bed at [facility]. Physical Exam Vital Signs: Last Vital Signs Temp 97.1 F 08/27/25 07:57 Pulse 78 08/27/25 08:22 Resp 18 08/27/25 07:57 BP 109/72 08/27/25 08:28 Pulse Ox 99 08/27/25 07:57 O2 Del Method Nasal Cannula 08/27/25 07:57 O2 Flow Rate 2 08/27/25 07:57 Oxygen Flow Rate 2 08/26/25 22:25 BMI result Body Mass Index 26.4 GENERAL APPEARANCE: In no acute distress. NECK: no carotid bruit, + jugular venous distention. SKIN: no suspicious lesions. HEART: no murmurs, regular rate and rhythm. LUNGS: Clear to auscultation. ABDOMEN: soft, nontender. EXTREMITIES: no edema. PERIPHERAL PULSES: equal. NEUROLOGIC: No gross deficits, AAO X 3 Objective Labs and Meds 08/27/25 07:20 08/27/25 07:20 Lab results: Laboratory Results - last 24 hr 08/26/25 08/26/25 08/26/25 11:35 20:57 21:47 WBC RBC Hgb Hct MCV MCH MCHC RDW Plt Count MPV Absolute Nucleated RBC Nucleated RBC % (auto) D-Dimer High Sensitivty 517 Sodium 138 Potassium 3.6 Chloride 102 Carbon Dioxide 22 Anion Gap 18 BUN 24 H Creatinine 1.12 Estim Creat Clear Calc 56.1 Estimated GFR > 60 POC Glucose 178 H Random Glucose 186 H Calcium 9.0 Magnesium Troponin I High Sens 29.3 D 42.7 H 08/27/25 08/27/25 01:18 07:20 WBC 6.9 RBC 4.17 L Hgb 12.7 L Hct 37.8 L MCV 90.6 MCH 30.5 MCHC 33.6 RDW 14.1 Plt Count 191 MPV 10.6 Absolute Nucleated RBC 0.000 Nucleated RBC % (auto) 0.0 D-Dimer High Sensitivty Sodium 138 Potassium 3.6 Chloride 101 Carbon Dioxide 26 Anion Gap 15 BUN 25 H Creatinine 0.99 Estim Creat Clear Calc 63.5 Estimated GFR > 60 POC Glucose Random Glucose 106 Calcium 8.6 Magnesium 2.2 Troponin I High Sens 33.8 Progress Note: A&P Assessment and plan (1) Acute on chronic congestive heart failure: Status: Acute (2) SVT (supraventricular tachycardia): Status: Acute Plan Pleasant 70 year gentleman with nonischemic cardiomyopathy with EF 10-15%, flutter ablation, ICD/LBBA pacing who is presenting with SVT. He was significantly symptomatic in the emergency department and after trying adenosine we cardioverted him. He has done well since then. His amiodarone has been doubled to 200 mg twice a day. He is on anticoagulation for previous flutter. Continue home medications otherwise. Continue IV Lasix as he still appears to be congested. He will be transferred to [facility] and potentially will undergo EP procedure today with the ablation for SVT. Keep him NPO going forward. Thank you for allowing me to participate in the care of your patient. Please feel free to contact me if you have any questions. Time Spent With Patient Time: Total time managing care of this patient today ____ minutes. Progress Note: Quality Stroke Does the patient have a stroke diagnosis?: No Procedures Date of Service Date of Service: 08/27/25
--- NOTE | 2025-08-27 11:06 | P.PNCAR_ITS ---
Cardioversion Procedure Note Cardioversion Date of Procedure: 08/26/25 Ordering Provider: Zuhair Hernandes Performing Provider: Zuhair Hernandes History: [age] year gentleman with congestive heart failure presenting with SVT and decompensated heart failure with ongoing chest discomfort. Consent: Verbal consent taken from the patient. Cardioversion performed emergently because the patient was significantly symptomatic and in heart failure. Procedure: Sedation was done by ER physician Sveta Vickers MD After adequate sedation we gave synchronized shock of 150 joule. We were unsure whether the patient has converted to sinus rhythm because the heart rate continued to be in 120s and there were no discernible P-waves. We tried synchronized shocks 200 joules 2 times. Device interrogation was done after this which showed sinus tachycardia. Recommendations: As he wakes up we should put him on BiPAP. IV diuretics. We will discuss with electrophysiology at [facility] and transfer him for EP study and ablation.
[2025-08-27 11:39] VITALS: BP 100/69; PULSE 81; RESP 18; TEMP 36.3; O2SAT 97
== END 2025-08-27 12:49 | disposition short-term general hospital (02) | DRG 291 ==
LOC: HO.ED 08-26 02:51 → HO.EDOVER 08-26 03:01 → HO.IMC 08-26 19:52
PROVIDERS: Hospitalist; Admitting Provider Internal Medicine; Emergency Provider Emergency Medicine; PCP Internal Medicine; Visit Provider Student in an Organized Health Care Education/Training Program
DX: I11.0 Hypertensive heart disease with heart failure (principal); I50.23 Acute on chronic systolic (congestive) heart failure; I47.20 Ventricular tachycardia, unspecified; I48.92 Unspecified atrial flutter; I42.8 Other cardiomyopathies; I25.10 Atherosclerotic heart disease of native coronary artery without angina pectoris; E78.5 Hyperlipidemia, unspecified; Z95.810 Presence of automatic (implantable) cardiac defibrillator; Z95.5 Presence of coronary angioplasty implant and graft; Z79.01 Long term (current) use of anticoagulants; Z79.899 Other long term (current) drug therapy
CPT/HCPCS: 36415; 71045; 74176; 80048; 80053; 82947; 83735; 83880; 84484; 85025; 85027; 85379; 93005; 94660; 94799; 99285; J0153; J0616; J1171; J1938; J2270

== ENCOUNTER → 2025-08-25 23:15 | Outpatient (BNV) | payer OTHER, SELFPAY | PROVIDERS: Admitting Provider Internal Medicine; Emergency Provider Emergency Medicine; PCP Internal Medicine; Visit Provider Internal Medicine Cardiovascular Disease | DX: R94.31 Abnormal electrocardiogram [ECG] [EKG] (principal); Z95.0 Presence of cardiac pacemaker | CPT/HCPCS: 93010 ==

== ENCOUNTER → 2025-08-26 02:55 | Outpatient (BNV) | payer OTHER, SELFPAY | PROVIDERS: Admitting Provider Internal Medicine; Emergency Provider Emergency Medicine; PCP Internal Medicine; Visit Provider Internal Medicine Cardiovascular Disease | DX: I50.9 Heart failure, unspecified (principal); I47.10 Supraventricular tachycardia, unspecified | CPT/HCPCS: 99291; 99292 ==

== ENCOUNTER → 2025-08-26 02:55 | Outpatient (BNV) | payer OTHER, SELFPAY | PROVIDERS: Admitting Provider Internal Medicine; Emergency Provider Emergency Medicine; PCP Internal Medicine; Visit Provider Internal Medicine | DX: I50.9 Heart failure, unspecified (principal); I48.92 Unspecified atrial flutter | CPT/HCPCS: 99222; 99239; 99499 ==

== ENCOUNTER → 2025-08-26 | Outpatient (BNV) | payer OTHER, SELFPAY | PROVIDERS: Emergency Provider Emergency Medicine; PCP Internal Medicine; Visit Provider Radiology Diagnostic Radiology | DX: R10.84 Generalized abdominal pain (principal); R07.9 Chest pain, unspecified | CPT/HCPCS: 71045; 74176 ==

== ENCOUNTER 2025-09-11 00:04 | Inpatient (IN) | payer OTHER, SELFPAY ==
--- OUTSIDE RECORDS SUMMARY | 2024-11-16 04:30 | XMS_ITS ---
Author Organization [facility] Address [address] [place] [address] Care Team Providers Care Master Barber Name Role Phone Imelda Sepulveda Primary Care Provider Unavailab Fabio Amin Unavailable [phone] Medications Medication SIG (Take, Route, Frequency, Duration) [...] No Encounters Encounter Location Date Provider Diagnosis [facility] [address] [place] [address] 11/16/2024 Fabio Silverio Plan Of Treatment No Information Progress Notes * Sayda SIMMSOB:[birth year] (70 yo M)Acc No.[id number]:11/16/2024 Progress Notes Patient: Trenton ORANTES Provider: Jina Silverio DPM :1955 A ge:69 Y S ex:Male Date:11/16/2024 Address:[address] [place] [address] [id number] Pcp:Imelda Sepulveda Subjective: * Chief Complaints: * [...] enies. C ardiovascular: Pacemaker d enies. M TOOL DRAWING CHECKER d enies. W PW d enies. C [...] DPM Date: 0 11/16/2024 Generated for Jackie Tompkins/Ronaldo on: 11/11/2024 02:29 PM EST
--- OUTSIDE RECORDS SUMMARY | 2025-09-07 17:35 | XMS_ITS | Continuity of Care Document ---
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 Name Role Phone Derick LOZANO, Imelda Forrester Primary Care Physician [phone] Encounter [facility] Date(s): 09/06/25 - 09/07/[address] [address]- Encounter Diagnosis CHF exacerbation(Final) - 09/06/25 TUCKER (acute kidney injury)(Final) - 09/06/25 Discharge Disposition: A-D/C Home Attending Physician: Flavio Abraham MD Admitting Physician: Gabe Goldberg MD Referring Physician: Not on Staff, Referring MD Encounter Type: Disch IP Allergies, Adverse Reactions, Alerts No Known Medication Allergies Functional Status Functional Status Assessment Assessment Assessment Component Result Effecti ve Date Total Falls Risk Score 3 09/07 Functional Status Assessment Assessment Assessment Component Result Effecti ve Date Woody scale total score 23 Functional Status Assessment Assessment Assessment Component Result Effecti ve Date Total Falls Risk Score 3 09/06 Functional Status Assessment Assessment Assessment Component Result Effecti ve Date Total Falls Risk Score 3 09/06 Functional Status Assessment Assessment Assessment Component Result Effecti ve Date Total score [AUDIT] 0 09/06/25 Functional Status Assessment Assessment Assessment Component Result Effecti ve Date Unspecifed Functional Status Assessment Skin abnormality typ e (observable entity) Surgical incision 09/06/25 Functional Status Assessment Assessment Assessment Component Result Effecti ve Date Unspecifed Functional Status Assessment Skin abnormality typ e (observable entity) Surgical incision 09/06/25 Functional Status Assessment Assessment Assessment Component Result Effecti ve Date Unspecifed Functional Status Assessment Skin abnormality typ e (observable entity) Surgical incision 09/07/25 Functional Status Assessment Assessment Assessment Component Result Effecti ve Date Disability status [CUBS] I'm Thriving - no identified disability 09/06/25 Are you blind, or do you have serious difficulty seeing, even when wearing glasses No 09/06/25 Are you deaf, or do you have serious difficulty hearing No 09/06/25 Do you have serious difficulty walking or climbing stairs No 09/06/25 Because of a physica l, mental, or emotional condition, do you have serious difficulty concentrating, remembering, or making decisions No 09/06/25 Difficulty communica ting in usual language No 09/06/25 Because of a physica l, mental, or emotional condition, do you have difficulty doing errands alone such as visiting a physician's office or shopping No 09/06/25 Do you have difficul ty dressing or bathing No 09/06/25 Difficulty Reading O r Writing No 09/06/25 Do you need any stephy tional assistance or accommodations during your visit No 09/06/25 Immunizations Given and Recorded Vaccine Date Status Refusal Reason pneumococcal 23-valent vaccine 03/01/14 Given Medications acetaminophen 650 mg oral tablet, extended release 1 tablet = 650 mg, By Mouth, Every 8 hours, PRN Pain , Moderate, # 24 tablet, 0 Refills, Maintenance, 08/27/25 1:41:00 PM EST, ER Tablet, Partial fill upon patient request if the prescription is for aschedule II opioid drug. Start Date: 08/27/25 Status: Ordered Medication Dispense Status: Completed Quantity: 24.0 Unit: tablet Total Allowed Fills: 1 Fills Dispensed: 0 amiodarone 200 mg oral tablet See Instructions, Label in Egyptian. Take 2 tablets twice a day for 6 days (last day 09/04). Then take 1 tablet twice a day for 7 days (last day 09/11). Then take 1 tablet daily., # 55 tablet, Refills0, Tot. Refills 0, Maintenance, 08/29/25 3:02:00 PM EST, Instructions Replace Required Details, Route to Pharmacy Electronically, [facility], Partial fill upon patient request if the prescription is for a schedule II opioid drug., 168, cm, 08/29/25 7:30:00 EST, Height, 79.5, kg, 08/27/25 12:48:00 EST, Dry Weight Start Date: 08/29/25 Status: Ordered Medication Dispense Status: Completed Quantity: 55.0 Unit: tablet Total Allowed Fills: 1 Fills Dispensed: 0 Coreg 6.25 mg oral tablet 6.25 mg, By Mouth, 2 times a day, Refills 0, Maintenance, 04/17/25 1:19:00 PM EDT, Partial fill uponpatient request if the prescription is for a schedule II opioid drug. Start Date: 04/17/25 Status: Ordered Medication Dispense Status: Completed Total Allowed Fills: 1 Fills Dispensed: 0 Eliquis 5 mg oral tablet 1 tablet = 5 mg, By Mouth, 2 times a day, Restart Eliquis on 06/23/25, # 60 tablet, 5 Refills, Maintenance, 04/12/25 6:33:00 PM EDT, Tablet, Partial fill upon patient request if the prescription is fora schedule II opioid drug. Start Date: 04/12/25 Status: Ordered Medication Dispense Status: Completed Quantity: 60.0 Unit: tablet Total Allowed Fills: 1 Fills Dispensed: 0 Entresto 24 mg-26 mg oral tablet 1 tablet, By Mouth, 2 times a day, TAKE 1 TABLET BY MOUTH TWICE DAILY, # 180 tablet, 1 Refills, Maintenance, 10/26/24 9:21:00 AM EST, Tablet, [facility], Partial fill upon patient requestif the prescription is for a schedule II opioid drug., 1 tablet By Mouth 2 times a day,Instr:TAKE 1TABLET BY MOUTH TWICE DAILY, 168, cm, 10/26/24 7:27:00 EST, Height, 68, kg, 10/23/24 21:31:00 EST, Dry Weight Start Date: 10/26/24 Status: Ordered Medication Dispense Status: Completed Quantity: 180.0 Unit: tablet Total Allowed Fills: 2 Fills Dispensed: 0 ezetimibe 10 mg oral tablet 1 tablet = 10 mg, By Mouth, Daily, # 30 tablet, 0 Refills, Maintenance, 04/12/25 6:16:00 PM EDT, Tablet, Partial fill upon patient request if the prescription is for a schedule II opioid drug. Start Date: 04/12/25 Status: Ordered Medication Dispense Status: Completed Quantity: 30.0 Unit: tablet Total Allowed Fills: 1 Fills Dispensed: 0 furosemide 80 mg oral tablet 80 mg, 1, tablet, By Mouth, 2 times a day, # 90 tablet, Refills 1, Tot. Refills 1, Maintenance, 10/26/24 9:21:00 AM EST, Route to Pharmacy Electronically, [facility], Partial fill upon patient request if the prescription is for a schedule II opioid drug., 168, cm, 10/26/24 7:27:00 EST, Height, 68, kg, 10/23/24 21:31:00 EST, Dry Weight Start Date: 10/26/24 Status: Ordered Medication Dispense Status: Completed Quantity: 90.0 Unit: tablet Total Allowed Fills: 2 Fills Dispensed: 0 Jardiance 10 mg oral tablet 1 tablet = 10 mg, By Mouth, Daily in AM, # 30 tablet, 0 Refills, Maintenance, 10/23/24 3:56:00 PM EST, Tablet, Partial fill upon patient request if the prescription is for a schedule II opioid drug. Start Date: 10/23/24 Status: Ordered Medication Dispense Status: Completed Quantity: 30.0 Unit: tablet Total Allowed Fills: 1 Fills Dispensed: 0 nitroglycerin 0.4 mg sublingual tablet 1 tablet = 0.4 mg, Sublingual, Every 5 minutes, PRN Chest Pain, Call MD if chest pain unrelieved, #30 tablet, 0 Refills, Soft Stop, 03/02/14 12:35:11 PM EDT, Tablet Start Date: 03/02/14 Status: Ordered Medication Dispense Status: Completed Quantity: 30.0 Unit: tablet Total Allowed Fills: 1 Fills Dispensed: 0 rosuvastatin 40 mg oral tablet 1 tablet = 40 mg, By Mouth, Daily, # 30 tablet, 1 Refills, Maintenance, 10/26/24 9:21:00 AM EST, Tablet, [facility], Partial fill upon patient request if the prescription is for a schedule II opioid drug., 168, cm, 10/26/24 7:27:00 EST, Height, 68, kg, 10/23/24 21:31:00 EST, Dry Weight Start Date: 10/26/24 Status: Ordered Medication Dispense Status: Completed Quantity: 30.0 Unit: tablet Total Allowed Fills: 2 Fills Dispensed: 0 spironolactone 25 mg oral tablet 25 mg, 1, tablet, By Mouth, Daily, TAKE 1 TABLET BY MOUTH EVERY DAY, # 90 tablet, Refills 1, Tot. Refills 1, Maintenance, 10/26/24 9:21:00 AM EST, Route to Pharmacy Electronically, [facility], Partial fill upon patient request if the prescription is for a schedule II opioid drug., 168, cm, 10/26/24 7:27:00 EST, Height, 68, kg, 10/23/24 21:31:00 EST, Dry Weight Start Date: 10/26/24 Status: Ordered Medication Dispense Status: Completed Quantity: 90.0 Unit: tablet Total Allowed Fills: 2 Fills Dispensed: 0 Mental Status Mental Status Assessment Assessment Assessment Component Result Effecti ve Date Radha coma score total 15 Problem List Condition Confirmation Course Effective Dates Status H ealth Status Informant CAD (coronary artery disease) Confirmed Active Hyperlipidemia Confirmed Active HTN (hypertension) Confirmed Active Results Radiology Reports * Exam Date Time Procedure Performing Provider Status 09/06/25 12:16 AM Chest 2 Views Frontal and Lat Auth (Verified) Notes: (Chest 2 Views Frontal and Lat) Reason For Exam: Chest Pain;Other: RESULT: Chest 2 Views Frontal and Lat Chest 2 Views Frontal and Lat Hx of Present Illness: recent discharge around noon time. worsening cp. on sodium restriction went home and ate a burger. right sided lung sounds diminished.; Reason: Other:; Chest Pain; Clinical Question(s): Other: COMPARISON: Multiple priors the most recent dated 09/01/2025 at 2033 hours. FINDINGS: LINES AND TUBES: Triple-lead left subclavian pacer/AICD wires are intact. LUNGS AND PLEURA: Persistent moderate pulmonary vascular congestion and interstitial edema slightly worsening. Persistent left retrocardiac opacity probably due to atelectasis. Increased diffuse opacity right lung base which may represent intra-alveolar edema, however superimposed infectious process cannot betotally excluded. No pleural effusion. No pneumothorax. HEART, MEDIASTINUM AND XANDER: Mild prominence of the cardiomediastinal silhouette persists. Normal mediastinal and hilar contour. BONES AND SOFT TISSUES: No acute abnormality. IMPRESSION: Moderate pulmonary vascular congestion and interstitial edema slightly worsening. Mild prominence of the cardiomediastinal silhouette persists. Additional increased haziness particularly over the right lung base. Superimposed alveolar edema versus infectious process. WSN: [id number] Ordering Physician: Lennox Dumont Dictated By: Conner Sanford MD, V Dictated Date/Time: 09/06/25 8:35 am Reviewed By: Conner Sanford MD, V Signed By: Conner Sanford MD, V Signed Date/Time: 09/06/25 8:35 am Transcribed By: VIRGILIO Transcribed Date/Time: 09/06/25 8:29 am Vital Signs Most recent to oldest [Reference Range]: 1 2 3 Height 168 cm (09/07/25 1:05 PM) 168 cm (09/07/25 8:31 AM) 168 cm (09/07/25 7:36 AM) Weight 70 kg (09/07/25 6:27 AM) 70.5 kg (09/06/25 6:25 AM) Oxygen Saturation [94-100 %] 98 % (09/07/25 1:05 PM) 94 % (09/07/25 7:36 AM) 96 % (09/07/25 2:40 AM) Pulse Rate [55-90 bpm] 80 bpm (09/07/25 1:05 PM) 92 bpm *H* (09/07/25 8:31 AM) 78 bpm (09/07/25 7:36 AM) Body Mass Index [18.5-24.99 kg/m2] 24.98 kg/m2 (09/06/25 6:25 AM) Blood Pressure [90-138/55-84 mm Hg] 89/60mm Hg *L* (09/07/25 1:05 PM) 112/87mm Hg (09/07/25 8:31 AM) 95/69mm Hg (09/07/25 7:36 AM) Respiratory Rate [16-30 br/min] 18 br/min (09/07/25 1:05 PM) 18 br/min (09/07/25 7:36 AM) 18 br/min (09/07/25 2:40 AM) Temperature [96.8-100.4 DegF] 98.2 DegF (09/07/25 1:05 PM) 98.3 DegF (09/07/25 7:36 AM) 97.1 DegF (09/07/25 2:40 AM) Liters per Minute 3 L/min (09/06/25 4:04 AM) 3 L/min (09/06/25 1:28 AM) Mode of Delivery (Oxygen) Room air (09/07/25 1:05 PM) Room air (09/07/25 7:36 AM) Room air (09/07/25 2:40 AM) Blood pressure sites Arm, right (09/07/25 1:05 PM) Arm, right (09/07/25 8:31 AM) Arm, right (09/07/25 7:36 AM) Temperature Route Oral (09/07/25 1:05 PM) Oral (09/07/25 7:36 AM) Temporal (09/07/25 2:40 AM) Dry Weight 70.5 kg (09/06/25 6:25 AM) Weight Obtained Via Bed scale (09/07/25 6:27 AM) Bed scale (09/06/25 6:25 AM) Dry Weight Obtained Via Bed scale (09/06/25 6:25 AM) Social History Social History Type Response Smoking Status Never smoker entered on: 01/07/15 Sex Sex Representation Male (finding) Status Not Social Determinants of Health Assessment Assessment Assessment Component Result Effecti ve Date Unspecifed Social Determinants of Health Assessment Are you worried abou t losing your housing [PRAPARE] No 09/06/25 Housing status I have housing 09/06/25 Has lack of transpor tation kept you from medical appointments, meetings, work, or from getting things needed for daily living No 09/06/25 Have you or any fami ly members you live with been unable to get any of the following when it was really needed in past 1 year [PRAPARE] None 09/06/25 Within the last year , have you been afraid of your partner or ex-partner No 09/06/25 Do you feel physical ly and emotionally safe where you currently live [PRAPARE] Yes 09/06/25 How often do you see or talk to people that you care about and feel close to [PRAPARE] 6 or more times a week 09/06/25 Admission evaluation note * Lisa LOZANO, Zhao Conti: PERFORM Mary Howe MD: MODIFY, MODIFY Mary Howe MD: MODIFY Event Display: Admission Note Authored Date: [id number] Patient: ??INOCENTE WALLACE ? Age:??70 Years?Sex:??Male?:??1955?LOC:??[facility]?? Chief Complaint/Reason for Consultation recent discharge around noon time. worsening cp. on sodium restriction went home and ate a burger. right sided lung sounds diminished. 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 He was given IV diuresis and discharged home once euvolemic and stable condition.?? He subsequently presented to the ED later that night after discharge for dyspnea and worsening substernal chest pain, described this pain is similar to what he was experiencing prior to his most recent admission.?? He also endorses lightheadedness that has been stable.?? In the ED he was hemodynamicallystable, noted to be diaphoretic and uncomfortable on exam.?? ECG was nonischemic.?? Labs revealed downtrending troponins (250-178, suspected to be elevated in setting of recent ablation) and elevatedproBNP to ~12,000, which is similar to prior presentation.?? He was found to be hyponatremic with sodium of 129 (from 131 on discharge).?? CXR revealed worsening pulmonary edema and pulmonary vascular congestion concerning for CHF exacerbation. ?? Patient was given a total of 100 mg IV furosemide, and subsequently admitted for acute CHF exacerbation. ?? On my assessment, he is feeling much better than initial presentation, and feeling similarly to when he was discharged.?? He states that he did have [employer] (burger and fries) for dinner yesterday after being discharged.?? Denies any palpitations. Review of Systems Review of systems otherwise negative, unless stated in HPI section. Objective Measurements?? Height: 168 cm (09/06/25) Weight: 70.5 kg (09/06/25) Dry Weight: 70.5 kg (09/06/25) Body Mass Index: 24.98 kg/m2 (09/06/25) ? Vital Signs?? Temperature: 97.4 DegF (09/06/25 13:14:00) Temperature Route: Temporal (09/06/25 13:14:00) Pulse Rate: 74 bpm (09/06/25 13:14:00) Respiratory Rate: 18 br/min (09/06/25 13:14:00) Systolic Blood Pressure: 101 mm Hg (09/06/25 13:14:00) Diastolic Blood Pressure: 64 mm Hg (09/06/25 13:14:00) Blood pressure sites: Arm, right (09/06/25 13:14:00) Mean Arterial Pressure: 76 mm Hg (09/06/25 13:14:00) Pulse Pressure: 37 mm Hg (09/06/25 13:14:00) Oxygen Saturation:??93 %??Low (09/06/25 13:14:00) Liters per Minute: 3 L/min (09/06/25 04:04:00) Mode of Delivery (Oxygen): Room air (09/06/25 13:14:00) Early Warning Score: 6 (09/06/25 13:51:29) ? Physical Exam General: Alert, no acute distress. Eyes:??Pupils are equal, round, and reactive. EOMI Ear, Nose, and Throat: Mucous membranes moist. Neck:??Supple, full range of motion. CV: RRR, S1 S2 present. No murmurs. No JVD. No edema. Respiratory: Bibasilar rales but good air movement bilaterally. Abdominal: Soft, nontender. No rebound tenderness. Normal bowel sounds. : No suprapubic tenderness. Extremities: Full passive ROM Neuro: No focal neuro deficits. Moving all extremities normally.?? Skin: No lesions, wounds, rashes.?? Musculoskeletal:??No joint edema or erythema. Normal range of motion. Assessment/Plan Diagnoses TUCKER (acute kidney injury) ??(N17.9) Acute hyponatremia ??(E87.1) Atrial flutter ??(I48.92) CAD (coronary artery disease) ??(I25.10) CHF exacerbation ??(I50.9) HFrEF (heart failure with reduced ejection fraction) ??(I50.20) ?? Assessment:??Inocente Wallace is a 70-year-old male with a history of mixed cardiomyopathy, HFrEF (10-15%), CAD s/p numerous BHUMI, A-flutter status post catheter ablation and SOLDERING INSPECTOR-D placement,??who was just admitted from??09/02 to 09/05??with CHF exacerbation/A-flutter??ablation, who presented to the [facility] evening after discharge with??dyspnea and chest pain, and was admitted for??acute on chronic CHFexacerbation. ?? CHF exacerbation (I50.9) ?Associated with??HFrEF (heart failure with reduced ejection fraction) (I50.20),??CAD (coronary artery disease) (I25.10) ? Patient discharged on 09/05 and will return that evening with chest pain and dyspnea on exertion, with CXR showing worsening pulmonary edema.??Admitted.??CHF exacerbation.??Suspect that this was due to dietary noncompliance as he had [employer] right after being discharged and prior to th e onset of the pain. ?? On my initial exam, he is approaching euvolemia???no JVD, no LE edema, and POCUS of his IVC showed some dilation but with good respiratory variation. ?? Plan: - Will continue home lasix (80mg PO BID) - Continue carvedilol - Continue Statin - Hold Entresto, spironolactone - Holding Jardiance (non-formulary) - Strict I's and O's - Continue telemetry - Daily weights - Nutrition consult - May benefit from HF consultation, likely as outpatient, to see if he would benefit from somethinglike CardioMEMS or any advanced HF therapies. ?? Atrial flutter (I48.92):? Status post??radioablation??on 09/04. - Continue amiodarone 200 mg twice daily - Continue Eliquis -??Telemetry ?? TUCKER (acute kidney injury) (N17.9) ?Associated with??Acute hyponatremia (E87.1) ? Patient with new TUCKER???suspect that this was??likely cardiorenal in setting of CHF exacerbation.??It has improved with diuresis. ?? He also has hyponatremia to 129, suspect that this is hypervolemic hyponatremia in setting of his acute CHF. ?? Plan: -??Follow-up p.m. lites -??Trend kidney function daily -??Avoid nephrotoxins - Holding??ARB/spironolactone -??If??TUCKER or hyponatremia worsen, would consider??renal consult. ?? VTE Prophylaxis:??Eliquis ?VTE Prophylaxis Assessment:??VTE Prophylaxis Ordered ?? Code Status:??Full code (confirmed) ?Order Code Status:??Code Status Ordered ?Zhao Gonzalez MD MedPeds PGY-4 [facility] p.[phone], Available on [employer]. ?? Patient seen and plan discussed with attending, ??Shyam ? patient seen with resident, as above, agree with findings above except as noted above ? 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 09/02- 09/05 for chest pain, and chf exacerbation?? treated with IV diuretics, and goal-directed medical therapy for atrial fibrillation he underwent ablation, the rhythm was continuing was discharged home shortly after going home patient started having chest pain after eating meal from [employer]? ekg??is paced rhythm, elevated troponin noted could be in the setting of ablation?? hyponatremia: 129, his renal function improved after diuresis but sodium remained, low, he appears euvolemic, will check urine studies, if still low, will consult renal, follow Na every 6h, nutritionconsult for low sodium/cardiac diet education?? cardiology consultation given complex cardiac and readmission.? Patient received??IV Lasix ?? he appears euvolic on exam? full code? Mary Howe MD pager # [phone] or via [employer]? Histories Allergies Allergies ?(Active and Proposed Allergies Only) No Known Medication Allergies? (Severity: Unknown severity, Onset: Unknown) ? Past Medical History/Problem List Active Problems(3) CAD (coronary artery disease) HTN (hypertension) Hyperlipidemia ? Past Surgical History No surgery history documented. ? Social History Tobacco Details:??Never smoker ? Family History No Family History documented. ? Medications Home Medications Acetaminophen (acetaminophen 650 mg oral tablet, extended release)??1 tab(s) 650 Milligram By MouthEvery 8 hours as needed Pain , Moderate amiODARONE (amiodarone 200 mg oral tablet)??See Instructions Label in Egyptian. Take 2 tablets twicea day for 6 days (last day 09/04). Then take 1 tablet twice a day for 7 days (last day 09/11). Thentake 1 tablet daily. apixaban (Eliquis 5 mg oral tablet)??1 tab(s) 5 Milligram By Mouth 2 times a day Restart Eliquis on06/23/25 Carvedilol (Coreg 6.25 mg oral tablet)??6.25 Milligram By Mouth 2 times a day empagliflozin (Jardiance 10 mg oral tablet)??1 tab(s) 10 Milligram By Mouth Daily in AM Ezetimibe (ezetimibe 10 mg oral tablet)??1 tab(s) 10 Milligram By Mouth Daily Furosemide (furosemide 80 mg oral tablet)??80 Milligram 1 tablet By Mouth 2 times a day Nitroglycerin (nitroglycerin 0.4 mg sublingual tablet)??1 tab(s) 0.4 Milligram Sublingual Every 5 minutes as needed Chest Pain Call MD if chest pain unrelieved Rosuvastatin (rosuvastatin 40 mg oral tablet)??1 tab(s) 40 Milligram By Mouth Daily sacubitril-valsartan (Entresto 24 mg-26 mg oral tablet)??1 tab(s) By Mouth 2 times a day TAKE 1 TABLET BY MOUTH TWICE DAILY Spironolactone (spironolactone 25 mg oral tablet)??25 Milligram 1 tablet By Mouth Daily TAKE 1 TABLET BY MOUTH EVERY DAY ? Inpatient Medications Medications (14) Active SCHEDULED: (6) Amiodarone 200 mg Tablet (amiodarone 200 mg oral tablet) ??200 mg, By Mouth, 2 times a day Apixaban 5 mg Tablet (Eliquis) ??5 mg, By Mouth, 2 times a day Carvedilol 6.25 mg Tablet (Coreg 6.25 mg oral tablet) ??6.25 mg, By Mouth, 2 times a day Furosemide 80 mg Tablet (furosemide 80 mg oral tablet) ??80 mg, By Mouth, 2 times a day NaCl 0.9% Flush 3ml (NaCL 0.9% Flush) ??3 mL, IV Push, Every 8 hours Rosuvastatin 20 mg Tablet (rosuvastatin 40 mg oral tablet) ??40 mg, By Mouth, Daily CONTINUOUS: (0) PRN: (8) Acetaminophen 325 mg Tablet (Acetaminophen Tablet) ??650 mg, By Mouth, Every 4 hours Dextromethorphan-Guaifenesin 20 mg-200 mg/10 mL Liqu UD (Robitussin DM Liquid) ??10 mL, By Mouth, Every 4 hours Melatonin 3 mg Tablet (Melatonin Tablet) ??3 mg, By Mouth, Daily at bedtime NaCl 0.9% Flush 3ml (NaCL 0.9% Flush) ??3 mL, IV Push, Every 8 hours Nitroglycerin 0.4 mg Sublingual Tablet (nitroglycerin 0.4 mg sublingual tablet) ??0.4 mg, Sublingual, Every 5 minutes Polyethylene Glycol 17 Gm Powder (MiraLax Powder) ??17 Gm 1 pack/packet, By Mouth, Daily Senna Tablet ??8.6 mg 1 tablet, By Mouth, 2 times a day Simethicone 80 mg Chewable Tablet (Simethicone Tablet) ??80 mg, Chew, 3 times a day ? Results Recent Labs BLOOD COUNT & DIFF WBC 11.9 k/mm3 (High)?? 09/05/2025 23:51 RBC 4.54 m/mm3 (Low)?? 09/05/2025 23:51 Hgb 14.0 Gm/dL ()?? 09/05/2025 23:51 Hct 42.2 % ()?? 09/05/2025 23:51 MCV 93.0 femtoliters ()?? 09/05/2025 23:51 MCH 30.8 pg ()?? 09/05/2025 23:51 MCHC 33.2 Gm/dL ()?? 09/05/2025 23:51 Platelet Count 322 k/mm3 ()?? 09/05/2025 23:51 RDW-SD 46.7 femtoliters ()?? 09/05/2025 23:51 MPV 11.1 femtoliters ()?? 09/05/2025 23:51 Nucleated RBC (Automated) 0.0 #/100 WBC'S ()?? 09/05/2025 23:51 Abs. NRBC 0.0 k/mm3 ()?? 09/05/2025 23:51 Abs. Neut 8.8 k/mm3 (High)?? 09/05/2025 23:51 Abs. Lymph 1.9 k/mm3 ()?? 09/05/2025 23:51 Abs. [place] 1.1 k/mm3 ()?? 09/05/2025 23:51 Abs. Eo 0.0 k/mm3 ()?? 09/05/2025 23:51 Abs. Baso 0.0 k/mm3 ()?? 09/05/2025 23:51 Neut % 73.4 % ()?? 09/05/2025 23:51 Lymph % 16.0 % ()?? 09/05/2025 23:51 [place] % 9.4 % ()?? 09/05/2025 23:51 Eos % 0.3 % ()?? 09/05/2025 23:51 Baso % 0.3 % ()?? 09/05/2025 23:51 Imm Gran 0.6 % ()?? 09/05/2025 23:51 Abs. Imm Gran 0.1 k/mm3 ()?? 09/05/2025 23:51 ?? CARDIAC Nt-Probnp 05627 pg/mL (High)?? 09/05/2025 23:51 High Sensitivity Troponin (HSTnT) 178 ng/L (Critical)?? 09/06/2025 02:54 ?? CHEM GENERAL Sodium 129 mmol/L (Low)?? 09/06/2025 12:31 Potassium 4.0 mmol/L ()?? 09/06/2025 12:31 Chloride 91 mmol/L (Low)?? 09/06/2025 12:31 Bicarbonate Level 25 mmol/L ()?? 09/06/2025 12:31 Anion Gap 13 mmol/L ()?? 09/06/2025 12:31 Glucose Level 130 mg/dL (High)?? 09/06/2025 12:31 BUN 25 mg/dL (High)?? 09/06/2025 12:31 Creatinine-Blood 0.96 mg/dL ()?? 09/06/2025 12:31 Estimated GFR Creatinine 86 ML/MIN/1.73 M2 ()?? 09/06/2025 12:31 Osmolality 278 mOs/kg (Low)?? 09/06/2025 12:31 Calcium 9.0 mg/dL ()?? 09/06/2025 12:31 Phosphorus 3.0 mg/dL ()?? 09/06/2025 12:31 Magnesium 2.1 mg/dL ()?? 09/06/2025 12:31 ?? HEME OTHER Hold Blue Top SPECIMEN DISCARDED AFTER 4 HOURS. ()?? 09/05/2025 23:51 ?? URINE OTHER Est Creatinine Clearance 65.87 mL/min ()?? 09/06/2025 13:51 ? Electronically Signed on 09/06/25 03:57 PM Zhao Gonzalez MD Electronically Signed on 09/06/25 05:31 PM Mary Howe MD Electronically Signed on 09/06/25 05:33 PM Mary Howe MD EKG study * Event Display: EKG Authored Date: * Event Display: EKG Authored Date: Note * Starla Hinojosa RN: PERFORM Event Display: Discharge/Transfer Note Hospital Authored Date: [id number] Nursing Discharge Note Entered On: 09/07/2025 17:35 EST Performed On: 09/07/2025 17:34 EST by Starla Hinojosa RN Nursing Discharge Note 2 Discharge Time : 09/07/2025 17:25 EST Discharge Level of Care at Discharge : Homehealth/VNA Discharge VNA/Hospice/Home Care(v001) : [facility] [phone] Patient Left Unit Via : Wheelchair Patient Accompanied Off Unit with : Responsible adult DC Instructions Provided & Signed by Pt : Yes Patient Understands D/C Instructions : Yes Verbalized Understanding of D/C Plan By : Patient Patient Instructions Discharge Signed : Yes Did Pt have Specialty Bed or Wound Vac : No Starla Hinojosa RN - 09/07/2025 17:34 EST Electronically Signed on 09/07/25 05:34 PM Starla Hinojosa RN * Jerry Escobar DO: PERFORM Jerry Escobar DO: PERFORM, MODIFY Jerry Escobar DO: MODIFY, MODIFY Jerry Escobar DO: MODIFY Event Display: Discharge/Transfer Note Hospital Authored Date: [id number] Patient: ??INOCENTE WALLACE ? Age:??70 Years?Sex:??Male?:??1955?LOC:??[facility]?? Patient Information Discharge Location: M7 Primary Care Physician: Imelda Sepulveda MD Admit Date/Time: 09/06/2025 04:51 Discharge Disposition Discharge Disposition: Home with Home Health Discharge Diagnosis CHF exacerbation (I50.9) TUCKER (acute kidney injury) (N17.9) HFrEF (heart failure with reduced ejection fraction) (I50.20) Acute hyponatremia (E87.1) CAD (coronary artery disease) (I25.10) Atrial flutter (I48.92) _ Discharge Medications Acetaminophen (acetaminophen 650 mg oral tablet, extended release)??1 tab(s) 650 Milligram By MouthEvery 8 hours as needed Pain , Moderate amiODARONE (amiodarone 200 mg oral tablet)??See Instructions Label in Egyptian. Take 2 tablets twicea day for 6 days (last day 09/04). Then take 1 tablet twice a day for 7 days (last day 09/11). Thentake 1 tablet daily. apixaban (Eliquis 5 mg oral tablet)??1 tab(s) 5 Milligram By Mouth 2 times a day Restart Eliquis on06/23/25 Carvedilol (Coreg 6.25 mg oral tablet)??6.25 Milligram By Mouth 2 times a day empagliflozin (Jardiance 10 mg oral tablet)??1 tab(s) 10 Milligram By Mouth Daily in AM Ezetimibe (ezetimibe 10 mg oral tablet)??1 tab(s) 10 Milligram By Mouth Daily Furosemide (furosemide 80 mg oral tablet)??80 Milligram 1 tablet By Mouth 2 times a day Nitroglycerin (nitroglycerin 0.4 mg sublingual tablet)??1 tab(s) 0.4 Milligram Sublingual Every 5 minutes as needed Chest Pain Call MD if chest pain unrelieved Rosuvastatin (rosuvastatin 40 mg oral tablet)??1 tab(s) 40 Milligram By Mouth Daily sacubitril-valsartan (Entresto 24 mg-26 mg oral tablet)??1 tab(s) By Mouth 2 times a day TAKE 1 TABLET BY MOUTH TWICE DAILY Spironolactone (spironolactone 25 mg oral tablet)??25 Milligram 1 tablet By Mouth Daily TAKE 1 TABLET BY MOUTH EVERY DAY ? Discharge Medications Unchanged Acetaminophen (acetaminophen 650 mg oral tablet, extended release)1 tab(s) Oral every 8 hours as needed Pain , Moderate. amiODARONE (amiodarone 200 mg oral tablet)Label in Egyptian. Take 2 tablets twice a day for 6 days (last day 09/04). Then take 1 tablet twice a day for 7 days (last day 09/11). Then take 1 tablet daily.. Refills: 0. apixaban (Eliquis 5 mg oral tablet)1 tab(s) Oral twice a day. Restart Eliquis on 06/23/25. Carvedilol (Coreg 6.25 mg oral tablet)6.25 Milligram Oral twice a day. empagliflozin (Jardiance 10 mg oral tablet)1 tab(s) Oral Daily in the morning. Ezetimibe (ezetimibe 10 mg oral tablet)1 tab(s) Oral Daily. Furosemide (furosemide 80 mg oral tablet)1 tab(s) Oral twice a day. Refills: 1. Nitroglycerin (nitroglycerin 0.4 mg sublingual tablet)1 tab(s) Sublingual every 5 minutes as neededChest Pain. Call MD if chest pain unrelieved. Refills: 0. Rosuvastatin (rosuvastatin 40 mg oral tablet)1 tab(s) Oral Daily. Refills: 1. sacubitril-valsartan (Entresto 24 mg-26 mg oral tablet)1 tab(s) Oral twice a day. TAKE 1 TABLET BY MOUTH TWICE DAILY. Refills: 1. Spironolactone (spironolactone 25 mg oral tablet)1 tab(s) Oral Daily. TAKE 1 TABLET BY MOUTH EVERY DAY. Refills: 1. 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 He was treated with lasix with good response and is now euvolemic and at baseline.??Requiring??SN at home and f/u with pcp and cardiology outpt. ?? CHF exacerbation (I50.9) ?Associated with??HFrEF (heart failure with reduced ejection fraction) (I50.20),??CAD (coronary artery disease) (I25.10) ? Patient discharged on 09/05 and will return that evening with chest pain and dyspnea on exertion, with CXR showing worsening pulmonary edema.??Admitted.??CHF exacerbation.??Suspect that this was due to dietary noncompliance as he had Frandy Javier right after being discharged and prior to th e onset of the pain. On initial exam, he is approaching euvolemia???no JVD, no LE edema, and POCUS of his IVC showed some dilation but with good respiratory variation. On??09/07 he was euvolemic without any complaints and HDS. ?? Recommendations - continue home lasix (80mg PO BID) - Continue carvedilol - Continue Statin -??Continue Entresto, spironolactone - Continue empagliflozin) -Recommend daily weight checks -F/u with pcp in 1 week -f/u with cardiology ? Atrial flutter (I48.92):? Status post??radioablation??on 09/04. - Continue amiodarone 200 mg twice daily - Continue Eliquis -??f/u with cardiology outpt ?? TUCKER (acute kidney injury) (N17.9) resolves ?? Patient with new TUCKER???suspect that this was??likely cardiorenal in setting of CHF exacerbation.??It has improved with diuresis. ?Recommendations -F/u with pcp in 1 week repeat bmp at that time -??Avoid nephrotoxins Objective . Physical Exam General: The patient was found resting and in no acute distress. HEENT:??NCAT, EOMI, no scleral icterus,??moist mucus membranes, trachea midline. Cardiovascular: RRR S1 and S2 heard with no murmurs, rubs or gallops. Respiratory: Breath sounds clear to auscultation bilaterally. No wheezing. GI: Soft. Nontender and nondistended. Normal bowel sounds present. MSK: No edema, no erythema in the lower extremities. Skin:??No rashes, bruises or skin breakdown. Neuro: No gross motor or neuro deficits. Sensation intact throughout. Psych: Alert and oriented x3, appropriate level of concern and pleasant. Home Health Face to Face *Denotes mandatory ríos ?? *I certify that this patient is under my care and that I or an allowed non- physician working with me had a face to face encounter with the patient on this date:??09/07/2025 14:45 ?? *The encounter with the patient was in whole, or in part, for the following medical condition, which is the primary diagnosis(es) for home health care:??CHF exacerbation (I50.9) TUCKER (acute kidney injury) (N17.9) HFrEF (heart failure with reduced ejection fraction) (I50.20) Acute hyponatremia (E87.1) CAD (coronary artery disease) (I25.10) Atrial flutter (I48.92) ?? *Select the indications for the discipline/s that are being arranged for this patient. Nursing (select all that apply): [_] None [_x] Medication management (reconciliation, teaching)?? [_] Chronic disease management?? [_] Wound care and treatment?? [_] Home safety evaluation [_] Administer SQ/IM/IV medications?? [_] Cath care?? [_] Drain care?? [_] Trach or GT care?? Other _ Occupation Therapy (select all that apply): [_] None [_] ADL Management [_] Fall prevention training [_] Energy conservation [_] Cognitive training Other _ Physical Therapy (select all that apply): [_] None [_] Functional mobility training [_] Home exercise program to strengthen [_] Increase ROM?? [_] Falls prevention training [_] Home maintenance program for chronic disease Other _ Speech Therapy (select all that apply): [_] None [_] Swallow evaluation and training [_] Speech and language training [_] Cognitive training to process, organize, and/or recall information Other _ ? *Homebound due to (select all that apply): [_x] Inability to leave home without assistance/supervision [_] Inability to ambulate without assistance [_] Pain [_] Decreased strength and endurance [_] Unsteady gait [_] Severe SOB and fatigue [_] Impaired transfers [_] Inability to negotiate stairs [_] Limited weight bearing [_] Mental status change? *Physician Signature: _Dr. Escobar ?? *By signing this, I certify that I have personally evaluated the patient and agree with the findings and recommendations as documented above. ? Results Discharge Labs BLOOD COUNT & DIFF WBC 7.2 k/mm3 ()?? 09/07/2025 02:08 RBC 3.86 m/mm3 (Low)?? 09/07/2025 02:08 Hgb 11.7 Gm/dL (Low)?? 09/07/2025 02:08 Hct 35.0 % (Low)?? 09/07/2025 02:08 MCV 90.7 femtoliters ()?? 09/07/2025 02:08 MCH 30.3 pg ()?? 09/07/2025 02:08 MCHC 33.4 Gm/dL ()?? 09/07/2025 02:08 Platelet Count 223 k/mm3 ()?? 09/07/2025 02:08 RDW-SD 45.3 femtoliters ()?? 09/07/2025 02:08 MPV 11.0 femtoliters ()?? 09/07/2025 02:08 Nucleated RBC (Automated) 0.0 #/100 WBC'S ()?? 09/07/2025 02:08 Abs. NRBC 0.0 k/mm3 ()?? 09/07/2025 02:08 Abs. Neut 8.8 k/mm3 (High)?? 09/05/2025 23:51 Abs. Lymph 1.9 k/mm3 ()?? 09/05/2025 23:51 Abs. [place] 1.1 k/mm3 ()?? 09/05/2025 23:51 Abs. Eo 0.0 k/mm3 ()?? 09/05/2025 23:51 Abs. Baso 0.0 k/mm3 ()?? 09/05/2025 23:51 Neut % 73.4 % ()?? 09/05/2025 23:51 Lymph % 16.0 % ()?? 09/05/2025 23:51 [place] % 9.4 % ()?? 09/05/2025 23:51 Eos % 0.3 % ()?? 09/05/2025 23:51 Baso % 0.3 % ()?? 09/05/2025 23:51 Imm Gran 0.6 % ()?? 09/05/2025 23:51 Abs. Imm Gran 0.1 k/mm3 ()?? 09/05/2025 23:51 ?? CARDIAC Nt-Probnp 11465 pg/mL (High)?? 09/05/2025 23:51 High Sensitivity Troponin (HSTnT) 178 ng/L (Critical)?? 09/06/2025 02:54 ?? CHEM GENERAL Sodium 132 mmol/L (Low)?? 09/07/2025 02:08 Potassium 3.8 mmol/L ()?? 09/07/2025 02:08 Chloride 95 mmol/L (Low)?? 09/07/2025 02:08 Bicarbonate Level 27 mmol/L ()?? 09/07/2025 02:08 Anion Gap 10 mmol/L ()?? 09/07/2025 02:08 Glucose Level 80 mg/dL ()?? 09/07/2025 02:08 BUN 21 mg/dL ()?? 09/07/2025 02:08 Creatinine-Blood 0.90 mg/dL ()?? 09/07/2025 02:08 Estimated GFR Creatinine 92 ML/MIN/1.73 M2 ()?? 09/07/2025 02:08 Osmolality 278 mOs/kg (Low)?? 09/06/2025 12:31 Calcium 8.8 mg/dL ()?? 09/07/2025 02:08 Phosphorus 2.3 mg/dL (Low)?? 09/07/2025 02:08 Magnesium 2.1 mg/dL ()?? 09/07/2025 02:08 ? HEME OTHER Hold Blue Top SPECIMEN DISCARDED AFTER 4 HOURS. ()?? 09/05/2025 23:51 ? MISC. CHEMISTRY Hold Eddy Top SPECIMEN DISCARDED AFTER 1 WEEK ()?? 09/05/2025 23:51 ? URINE OTHER Est Creatinine Clearance 70.26 mL/min ()?? 09/07/2025 03:29 ? 32??minutes spent on discharge ?? Patient care discussed with Dr.LaChance Jerry Escobar, DO Internal Medicine PGY-3 Pager [phone] ? Attending Attestation: I saw and examined independently and reviewed the chart on the day of service. ??I have discussed the case and its management??with the resident as documented in the resident note on the day of service.??I agree with the resident's note and plan as documented.?? Educated patient and his caregiver at bedside about importance of sodium restriction (dietary indiscretion was the etiology of his decompensation).?? He quickly became euvolemic and was ambulating around the unit without breathlessness or any chest symptoms.?? He is happy to be discharged. Flavio Abraham MD. Electronically Signed on 09/07/25 02:52 PM Jerry Escobar DO Electronically Signed on 09/07/25 03:14 PM Leigh LOZANO, Flavio Hinojosa RN, Starla Bernardo: PERFORM Event Display: Patient Education/Instruction Authored Date: [id number] Inpatient Adult Discharge Instructions. [place] [id number] Name: INOCENTE WALLACE : 1955?? Visit: 09/06/2025 04:51?? Current Date: 09/07/2025 16:42 ?? Account: [id number]?? Inpatient Adult Discharge Instructions We would like to thank you for allowing us to assist you with your healthcare needs. The following includes patient education materials and information regarding your injury/illness. Our entire staffstrives to provide an excellent experience for our patients and their families. PLEASE ENSURE YOU FOLLOW-UP PER THE INSTRUCTIONS BELOW! ?? YOUR OPINION IS IMPORTANT TO US! Please complete the survey you may receive by mail or email. Your feedback will be used to make improvements to the healthcare experiences of our patients and their families. Surveys are administered by [employer] ?? If further treatment with your primary care physician or another doctor is recommended, it is important for you to keep the appointment. Call your primary care physician or return to the Emergency Department immediately if your condition worsens, fails to improve, or new symptoms develop. If you need to find a doctor, you can call [facility] Link for a referral at [phone] or toll free at [phone] or log in to [email or web address].. ?? [facility], in keeping with [facility] guidance, no longer requires face masks for staff, patientsor visitors in most situations. Similiar to time spent indoors at other locations, there is the chance that you were exposed to repiratory viruses during your time with us (such as flu or COVID-19). If you develop symptoms concerning for a viral respiratory infection, please seek testing (and treatment if indicated) from your medical provider or home test kit. ?? You can view and manage your care through the patient portal or by using a health care adriana of your choosing. [email or web address] is a website that allows you to securely view your medical information including your hospital discharge summary, office visit summaries, medications and follow-up visits. You can also request appointments, renew medications, and request access to your medical information using a health care adriana of your choosing, or just ask a question. You are entitled to know the individuals who participated in your treatment. This information is available within your medical record and will be provided upon your request. You can enroll at [email or web address] or register d uring your next office visit. You have been discharged from [facility], Patient Care Unit: M7??. If you have any questions regarding these instructions, including results of studies pending, afteryou leave, please call us and we will be happy to assist you 16/05. [facility] Your Care Team Attending Physician Flavio Abraham MD?? Consulting Providers Flavio Abraham MD?? Discharging Providers Jerry Escobar DO Reason for Your Visit recent discharge around noon time. worsening cp. on sodium restriction went home and ate a burger. right sided lung sounds diminished. ??20 R wrist 75 mcg fentanyl 324 ASA?? Your Diagnosis Acute hyponatremia Atrial flutter CAD (coronary artery disease) HFrEF (heart failure with reduced ejection fraction) Tests Performed Below is a partial list of the tests performed during your hospitalization. You may have had other tests and procedures not included in this list. Please discuss all test results with your provider. B Type Natriuretic Peptide (NT-proBNP) Basic Metabolic Panel CBC CBC w/ Differential Electrolytes High??Sensitivity??Troponin T Hold Blue Top Tube HOLD EDDY TUBE Magnesium Level Osmolality Phosphorus Level XR Chest 2 Views Frontal and Lat B Type Natriuretic Peptide (NT-proBNP)?? Basic Metabolic Panel?? CBC?? CBC w/ Differential?? Electrolytes?? High??Sensitivity??Troponin T?? Hold Blue Top Tube?? Hold Eddy Top Tube (HOLD EDDY TUBE)?? Magnesium Level?? Osmolality?? Osmolality Urine?? Phosphorus Level?? Sodium Urine?? Urea Nitrogen Urine (Urine Urea Nitrogen)?? Chest 2 Views Frontal and Lat (XR Chest 2 Views Frontal and Lat)?? Primary Care Provider Derick LOZANO, Imelda Forrester? Advance Directive Health Care Proxy on File Yes - Health Care Proxy Discharge Vitals Temperature: 98.2 DegF Height: 168 cm Pulse Rate: 80 bpm Weight: 70 kg Respiratory Rate: 18 br/min Body Mass Index: 24.98 kg/m2 Systolic Blood Pressure:??89 mm Hg??Low Body surface area: 1.81 Diastolic Blood Pressure: 60 mm Hg ?? Oxygen Saturation: 98 % ?? Studies Pending All studies ordered during this hospital stay have been completed unless listed below. Please discuss all pending results with your provider listed above in these instructions. ?? Osmolality Urine?? Sodium Urine?? Urea Nitrogen Urine (Urine Urea Nitrogen)?? What to do next Instructions From Your Doctor Presented to hospital with??exacerbation of your heart failure that required Lasix??to help you urinate the??extra fluid. You responded well to this medication.?? There were no changes made to your??home medications you will need to follow-up with your primary care physician in 1 week to have repeat labs done as well as cardiology??outpatient. ??If you begin to have new chest pain or shortness ofbreath is important that you return??to the??ED for further evaluation. ?? Orders? 09/07/25 14:52:00 EST?? Prescriptions??, ??09/07/25 14:52:00 EST?? Discharge Medications INOCENTE WALLACE :1955 Visit Date:09/06/2025 Medications: Please continue your medications until treatment is completed or stopped by your provider. Medications not listed below should be discontinued. Discuss any questions related to medications with your provider. What How Much When Instructions Next Dose Unchanged Acetaminophen (acetaminophen 650 mg oral tablet, extended release) 1 tab(s) Oral Every 8 hours as needed for Pain , Moderate as needed Unchanged amiODARONE (amiodarone 200 mg oral tablet) See instructions Special Instructions: Label in Egyptian. Take 2 tablets twice a day for 6 days (last day ). Then take 1 tablet twice a day for 7 days (last day ). Then take 1 tablet daily. Ordering Physician: Mecca Moreno MD ?? 1 tab today at 9pm Unchanged apixaban (Eliquis 5 mg oral tablet) 1 tab(s) Oral Twice a day Special Instructions: Restart Eliquis on ?? today at 9pm Unchanged Carvedilol (Coreg 6.25 mg oral tablet) 6.25 Milligram Oral Twice a day Ordering Physician: Gabriella Cervantes MD today at 9pm Unchanged empagliflozin (Jardiance 10 mg oral tablet) 1 tab(s) Oral Daily in the morning tomorrow in am Unchanged Ezetimibe (ezetimibe 10 mg oral tablet) 1 tab(s) Oral Daily tomorrow Unchanged Furosemide (furosemide 80 mg oral tablet) 1 tab(s) Oral Twice a day Ordering Physician: Zhao Gonzalez MD tomorrow in am Unchanged Nitroglycerin (nitroglycerin 0.4 mg sublingual tablet) 1 tab(s) Sublingual Every 5 minutes as needed for Chest Pain Special Instructions: Call MD if chest pain unrelieved Ordering Physician: Juliet Marquez MD ?? as needed Unchanged Rosuvastatin (rosuvastatin 40 mg oral tablet) 1 tab(s) Oral Daily Ordering Physician: Xavi Graves MD tomorrow Unchanged sacubitril-valsartan (Entresto 24 mg-26 mg oral tablet) 1 tab(s) Oral Twice a day Special Instructions: TAKE 1 TABLET BY MOUTH TWICE DAILY Ordering Physician: Xavi Graves MD ?? today at 9pm Unchanged Spironolactone (spironolactone 25 mg oral tablet) 1 tab(s) Oral Daily Special Instructions: TAKE 1 TABLET BY MOUTH EVERY DAY Ordering Physician: Xavi Graves MD ?? tomorrow in am Prescription Given During Visit No new medications prescribed at time of discharge.?? Laboratory Results Below is a partial list of the most recent Laboratory test results done prior to this discharge. You may have had other tests and procedures not included in this list. Please discuss all test resultswith your provider. Est Creatinine Clearance - 70.26 mL/min (09/07/2025) B Type Natriuretic Peptide (NT-proBNP) (09/05/2025) ???Nt-Probnp - 88839 pg/mL Basic Metabolic Panel (09/07/2025) ???Sodium - 132 mmol/L???Potassium - 3.8 mmol/L???Chloride - 95 mmol/L???Bicarbonate Level - 27 mmol/L???Anion Gap - 10 mmol/L???Glucose Level - 80 mg/dL???BUN - 21 mg/dL???Creatinine-Blood - 0.90 mg/dL???Estimated GFR Creatinine - 92 ML/MIN/1.73 M2???Calcium - 8.8 mg/dL CBC (09/07/2025) ???WBC - 7.2 k/mm3???RBC - 3.86 m/mm3???Hgb - 11.7 Gm/dL???Hct - 35.0 %???MCV - 90.7 femtoliters???MCH - 30.3 pg???MCHC - 33.4 Gm/dL???Platelet Count - 223 k/mm3???RDW-SD - 45.3 femtoliters???MPV - 11.0 femtoliters???Nucleated RBC (Automated) - 0.0 #/100 WBC'S???Abs. NRBC - 0.0 k/mm3 CBC w/ Differential (09/05/2025) ???WBC - 11.9 k/mm3???RBC - 4.54 m/mm3???Hgb - 14.0 Gm/dL???Hct - 42.2 %???MCV - 93.0 femtoliters???MCH - 30.8 pg???MCHC - 33.2 Gm/dL???Platelet Count - 322 k/mm3???RDW-SD - 46.7 femtoliters???MPV - 11.1 femtoliters???Nucleated RBC (Automated) - 0.0 #/100 WBC'S???Abs. NRBC - 0.0 k/mm3???Abs. Neut -8.8 k/mm3???Abs. Lymph - 1.9 k/mm3???Abs. [place] - 1.1 k/mm3???Abs. Eo - 0.0 k/mm3???Abs. Baso - 0.0 k/mm3???Neut % - 73.4 %???Lymph % - 16.0 %???[place] % - 9.4 %???Eos % - 0.3 %???Baso % - 0.3 %???Imm Gran - 0.6 %???Abs. Imm Gran - 0.1 k/mm3 Electrolytes (09/06/2025) ???Sodium - 132 mmol/L???Potassium - 4.3 mmol/L???Chloride - 93 mmol/L???Bicarbonate Level - 28 mmol/L???Anion Gap - 11 mmol/L High??Sensitivity??Troponin T (09/06/2025) ???High Sensitivity Troponin (HSTnT) - 178 ng/L Hold Blue Top Tube (09/05/2025) ???Hold Blue Top - SPECIMEN DISCARDED AFTER 4 HOURS. HOLD EDDY TUBE (09/05/2025) ???Hold Eddy Top - SPECIMEN DISCARDED AFTER 1 WEEK Magnesium Level (09/07/2025) ???Magnesium - 2.1 mg/dL Osmolality (09/06/2025) ???Osmolality - 278 mOs/kg Phosphorus Level (09/07/2025) ???Phosphorus - 2.3 mg/dL Allergies (NKA means No Known Allergies) No Known Medication Allergies Problems Active Problems??(3) CAD (coronary artery disease)?? HTN (hypertension)?? Hyperlipidemia?? Education Materials Below is the list of Educational Leaflet Providered with your Discharge Instructions. [employer] Patient Education -?? [employer] Patient Education -?? [employer] Patient Education -?? [employer] Patient Education -?? [employer] Patient Education -?? [employer] Patient Education -?? [employer] Patient Education -?? [employer] Patient Education -?? [employer] Patient Education -?? [employer] Patient Education - Heart Failure Discharge Instructions for Heart Failure?? [employer] Patient Education -?? [employer] Patient Education -?? Valuables and Belongings I fully understand and agree that [facility] accepts no responsibility for all my personal property including clothing, toilet articles, radios, jewelry, dentures, hearing aids, rings, money, or any other property that is in my possession or is brought to me after admission. I understand certain valuables may be placed in a hospital safe for a short period of time. I understand that the hospital is not liable for loss or damage due to accident, fire, or other natural occurrence while said property is in the safe. I accept full responsibility for any personal property that I keep with me, and will not hold the hospital responsible in case of loss or disappearance. I acknowledge that i have been encouraged to send valuables and belongings home. ?? Review of Valuable and Belonging List: With patient Date for Pt to Sign Valuables/Belongings: 09/06/25 04:20:00 ?? Other Discharge Information ? Case Management Discharge Plan?? Discharge Plan?? Discharge Agency Information?? Discharge Level of Care at Discharge: Homehealth/VNA Name of Agency #1: [facility] Discharge VNA/Hospice/Home Care: [facility] [phone] Service Categories #1: Long Term ?? Service Comments #1: The VNA will call you 1-2 days after d/c to setup your appointment. If you do no not hear from them, please call them. ?? Pulmonary Rehab Status?? Pulmonary Rehab Discharge Status?? Respiratory Rate: 18 br/min ? Common Emergency Awareness Tips IS IT A STROKE? Act FAST and Check for these signs: FACE Does the face look uneven? ARM Does one arm drift down? SPEECH Does their speech sound strange? TIME Call at any sign of stroke ?? Heart Attack Signs Chest discomfort: Most heart attacks involve discomfort in the center of the chest and lasts more than a few minutes, or goes away and comes back. It can feel like uncomfortable pressure, squeezing, fullness or pain. Discomfort in upper body: Symptoms can include pain or discomfort in one or both arms, back, neck, jaw or stomach. Shortness of breath: With or without discomfort. Other signs: Breaking out in a cold sweat, nausea, or lightheaded. Remember, MINUTES DO MATTER. If you experience any of these heart attack warning signs, call to get immediate medical attention! ?? Smoking can increase your chances of developing chronic health problems and can cause harmful effects to other family members in your house. If you smoke, you are strongly encouraged to quit. Please call [facility] [employer] [facility] at [phone] or [phone] ([phone]) or log in to [email or web address] for referrals to smoking cessation programs. ?? 842 Suicide & Crisis Lifeline is available 16/05 if you or someone you know needs to find a reason to keep living. By calling 747 you'll be connected to a skilled, trained counselor at a crisis center in your area. INPATIENT DISCHARGE INSTRUCTIONS SIGNATURE PAGE INOCENTE WALLACE Location:[facility] Registration Date and Time:09/06/2025 04:51 EST Primary Care Physician: Derick LOZANO, Imelda Forrester, Attending Physician: Shahriar Abraham MD, I INOCENTE WALLACE, have received the above patient education materials/instructions and have verbalized understanding. If ambulance or transport services are being used I further acknowledge being given a choice of service. ?? If you need to contact me, please call me at this number: . Patient/Wage Adjuster Name: Patient/Wage Adjuster Signature: Relationship to Patient: Witness Name/Signature: Date: * Micaela BAKER, Starla Bernardo: PERFORM Event Display: Patient Education Leaflets Authored Date: [id number] [facility] ?? [id number] Espironolactona ADVERTENCIA: La espironolactona salmeron causado tumores en animales de laboratorio. Consulte a sanchez m??dico sobre los riesgos y los beneficios de usar gloria medicamento para tratar sanchez afecci??n. ??PARA CU? LES condiciones o enfermedades se prescribe gloria medicamento? La espironolactona se usa para tratar determinados pacientes con hiperaldosteronismo (el cuerpo produce demasiada aldosterona, rj hormona natural); niveles bajos de potasio; insuficiencia card??chaim;y en pacientes con edema (retenci??n de l??quidos) ocasionado por diversas afecciones, margarito la enfermedad del h??gado o del ri?n. Tambi??n se usa, ya sea rita o con otros medicamentos, para tratarla presi??n arterial pankaj. La espironolactona pertenece a rj clase de medicamentos denominados antagonistas de los receptores de aldosterona. Hace que los ri??ones eliminen por la orina el agua y elsodio que el organismo no necesita, maxim reduce la p??rdida de potasio del cuerpo. La presi??n arterial pankaj es rj afecci??n com??n, y cuando no se trata puede causar da??o al cerebro, coraz??n, vasos sangu??neos, ri??ones y otras partes del cuerpo. El da??o a estos ??rganos puedecausar enfermedad card??chaim, un ataque card??aco, insuficiencia card??chaim, accidente cerebrovascular, insuficiencia renal, p??rdida de la visi??n y otros problemas. Adem??s de la medicaci??n, los cambios en el estilo de raysa tambi??n ayudan a controlar la presi??n arterial. Estos cambios incluyen seguir rj dieta baja en grasas y maría, mantener un peso saludable, hacer ejercicio al menos 30 minutos la mayor??a de los d??as, no fumar y consumir alcohol con moderaci??n. ??C??MO se debe usar gloria medicamento? La presentaci??n de la espironolactona es en tabletas y suspensi??n (l??quido; solamente Carospir) para administrarse por v??a oral. Por lo general, se diandra rj o dos veces al d??a. [place] la suspensi??n de espironolactona consistentemente, con o sin alimentos cada vez. [place] la espironolactona aproxim adamente a la misma hora todos los d??as. Siga cuidadosamente las instrucciones en la etiqueta del medicamento y preg??ntele a sanchez m??dico o farmac??utico cualquier cosa que no comprenda. [place] la espironolactona exactamente margarito se lo indicaron. No tome rj cantidad mayor ni jaleesa del medicamento zuhair tome con m??s frecuencia de lo que indica la receta de sanchez m??dico. Agite jorge l la suspensi??n oral antes de cada uso para mezclar el medicamento de forma uniforme. Es posible que el m??dico le recete al principio rj dosis baja de espironolactona y que la aumentede manera gradual. Las tabletas y la suspensi??n de espironolactona liberan el medicamento de forma diferente en el organismo y no pueden sustituirse entre s??. [place] solamente el producto de la espironolactona recetadopor sanchez m??dico y no cambie a un producto diferente de la espironolactona a menos que sanchez m??dico le indique que debe hacerlo. La espironolactona controla la presi??n arterial pankaj, edema, insuficiencia card??chaim, y el hiperaldosteronismo, maxim no harjeet estas afecciones. Es posible que transcurran 2 semanas, o m??s, para que se produzca el efecto total de la espironolactona. Siga tomando la espironolactona aunque se sienta jorge l. No deje de rubina la espironolactona sin consultarlo antes con sanchez m??dico. ??Qu?? OTRO USO se le da a gloria medicamento? La espironolactona tambi??n se usa en combinaci??n con otros medicamentos para tratar la pubertad precoz (rj afecci??n que hace que los ni??os ingresen demasiado pronto en la pubertad, lo que provoca el desarrollo de caracter??sticas sexuales en ni??as de, por lo general, menos de 8 a??os y en ni??os de, por lo general, menos de 9 a??os) o la miastenia grave (MG, por krystin siglas en ingl??s, rj enfermedad en la que los nervios no funcionan correctamente y los pacientes pueden sufrir debilidad; entumecimiento; p??rdida de la coordinaci??n muscular; y problemas de la vista, del habla y de control de la vejiga). La espironolactona tambi??n puede usarse para tratar a determinadas mujeres con vello facial anormal. Hable con sanchez m??dico acerca de los posibles riesgos de usar gloria medicamento para tratar sanchez afecci??n. A veces se receta gloria medicamento para otros usos; p??erik m??s informaci??n a sanchez m??dico o a sanchez farmac??utico. ??Cu??les son las PRECAUCIONES ESPECIALES que ru seguir? Antes de rubina espironolactona, ??? informe a sanchez m??dico y farmac??utico si es al??rgico a la espironolactona, a cualquier otro medicamento o a alguno de los ingredientes que contienen las tabletas de espironolactona. P??erik a sanchez farmac??utico rj lista de los ingredientes. ??? informe a sanchez m??dico si est?? tomando eplerenona (Inspra). Sanchez m??dico probablemente le dir?? que no use la espironolactona si est?? tomando gloria medicamento. ??? algunos medicamentos no deben tomarse con espironolactona. Otros medicamentos pueden provocar cambios en la dosis o requerir control adicional cuando se ana con espironolactona. Aseg??rese de haberle informado a sanchez m??dico y farmac??utico qu?? medicamentos est?? tomando o piensa rubina antes de empezar sanchez tratamiento con espironolactona. Antes de comenzar, suspender o cambiar cualquiermedicamento mientras diandra espironolactona, cons??ltelo con sanchez m??dico o farmac??utico. ??? los siguientes productos de venta sin receta pueden interactuar con la espironolactona: suplementos de potasio; medicamentos antiinflamatorios no esteroideos (OVI) margarito ibuprofeno (Advil, Motrin, otros) y naproxeno (Aleve); ??cido acetilsalic??padilla. Aseg??rese de informar a sanchez m??dico y farmac??utico que est?? tomando estos medicamentos antes de empezar a rubina la espironolactona. No empiece a rubina ninguno de estos medicamentos mientras est?? tomando espironolactona sin consultarlo antes con sanchez m??dico. ??? informe a sanchez m??dico si padece la enfermedad de Jose R u otras afecciones que puedan causar niveles elevados de potasio en nikkie, o enfermedad renal. Sanchez m??dico podr??a indicarle que no tome espironolactona. ??? informe a sanchez m??dico si tiene enfermedad hep??raine. ??? informe a sanchez m??dico siest?? embarazada, planea quedar embarazada o est?? amamantando. Llame a sanchez m??dico si queda embarazada mientras diandra espironolactona. ??? si se someter?? a rj cirug??a, incluida rj cirug??a dental,informe a sanchez m??dico o dentista que est?? tomando espironolactona. ??? debe saber que beber alcoholjunto con gloria medicamento puede provocarle mareos, aturdimiento y desmayos si se levanta demasiador??pido despu??s de estar tumbado. Hable con asnchez m??dico sobre el consumo de alcohol mientras est?? tomando espironolactona. ??Qu?? DIETA ESPECIAL ru seguir mientras kinza gloria medicamento? Siga las indicaciones de sanchez m??dico para las comidas, incluidos los consejos para rj dieta reducida en maría (sodio) y un programa de ejercicio diario. Evite los sustitutos de la maría que contengan potasio mientras est?? tomando gloria medicamento. Hable con el m??dico sobre la cantidad de alimentos ricos en potasio que puede incluir en sanchez dieta, (por ejemplo, bananas, ciruelas, pasas y jugo de naranja). ??Qu?? tengo que hacer SI ME OLVIDO de rubina rj dosis? [place] la dosis que omiti?? magana pronto margarito lo recuerde. Sin embargo, si se acerca la hora de sanchez pr??xima dosis, omita la dosis que olvid?? y contin??e con sanchez dosis normal. No duplique la dosis para compensar la que omiti??. ??Cu??les son los EFECTOS SECUNDARIOS que podr??a provocar gloria medicamento? Algunos efectos secundarios pueden ser graves. Si presenta alguno de estos s??ntomas, llame a sanchez m??dico inmediatamente: ??? debilidad muscular, dolor o calambres ??? dolor, ardor, entumecimiento u hormigueo en las manoso pies ??? incapacidad para oil field roustabout brazos o piernas ??? cambios en el ritmo card??aco ??? confusi??n??? n??useas ??? cansancio extremo ??? boca seca, sed, mareos, inestabilidad, dolor de jordan u otros signos de deshidrataci??n ??? sangrado o moretones inusuales ??? falta de energ??a ??? p??rdida de apetito ??? dolor en la parte superior derecha del est??malathi ??? coloraci??n amarillenta en la piel y los ojos ??? s??ntomas similares a los de la gripe ??? sarpullido ??? urticaria ??? picaz??n ???dificultad para respirar o tragar ??? v??mitos con nikkie ??? nikkie en las heces ??? micci??n menos frecuente ??? desmayos Si desarrolla un efecto secundario grave, usted o sanchez doctor puede enviar un informe al programa de divulgaci??n de efectos adversos 'MedWatch' de la Administraci??n de Alimentos y Medicamentos (FDA, por sanchez sigla en ingl??s) en la p??kinsey de Internet (https://www.fda.gov/Safety/MedWatch) o por tel??fono al . ??C??mo ru ALMACENAR o DISPONER de gloria medicamento? Mantenga gloria medicamento en sanchez empaque original, jorge l cerrado y fuera del alcance de los ni??os. Gu??rdelo a temperatura ambiente y lejos del calor excesivo y la humedad (no en el cuarto de ba??o). Conserve todos los medicamentos en un lugar alejado de la vista y el alcance de los ni??os, ya que muchos frascos no son a prueba de ni??os. Cierre siempre las tapas de seguridad. Guarde el medicamento en un lugar seguro, que est?? en alto y fuera de sanchez alcance. [email or web address] Si no necesita usar m??s un medicamento, bhumi??brenda para evitar que las mascotas, los ni??os y otras personas puedan tomarlos. No tire gloria medicamento por el inodoro. Utilice un programa de devoluci??n de medicamentos. Hable con sanchez farmac??utico sobre los programas de devoluci??n de medicamentos en sanchez comunidad. Si necesita m??s informaci??n sobre c??mo desechar de forma keyes los medicamentos,visite el sitio web de la [employer] [employer] [email or web address]. ??Qu?? ru hacer en brian de rj SOBREDOSIS? En brian de sobredosis, llame a la l??faye de ayuda de control de envenenamiento al . La informaci??n tambi??n est?? disponible en l??faye en [email or web address].poisonhelp.org/help. Si la v??ctima se salmeron derrumbado, salmeron tenido rj convulsi??n, tiene dificultad para respirar, o no puede despertarse, llame inmediamente a los servicios de emergencia al 911. Los s??ntomas de rj sobredosis pueden incluir los siguientes: ??? somnolencia ??? confusi??n ??? sarpullido ??? n??useas ??? v??mitos ??? mareos ??? diarrea ??? hormigueo en brazos y piernas ??? p??rdida del felisha muscular ??? debilidad o pesadez en las piernas ??? ritmo cardiaco irregular o lento. ??Qu?? OTRA INFORMACI??N de importancia deber??a saber? Asista a todas las citas con sanchez m??dico y a las de laboratorio. Sanchez m??dico le ordenar?? algunas pruebas de laboratorio para comprobar la respuesta de sanchez cuerpo a la espironolactona. Antes de realizarse alguna prueba de laboratorio, informe a sanchez m??dico y al personal del laboratorio que diandra espironolactona. No deje que nadie m??s tome sanchez medicamento. Preg??ntele a sanchez farmac??utico cualquier eris que tengasobre c??mo volver a surtir sanchez receta m??dica. Mantenga rj lista escrita de todos los medicamentos con receta y sin receta (de venta bao), vitaminas, minerales y suplementos diet??ticos que diandra actualmente. Lleve esta lista con usted cada vezque visite a un m??dico o si es ingresado en el hospital. Debe llevar la lista consigo en brian de emergencia. Nombres comercial(es): ??? Aldactone? Carospir?? tambi??n disponibles gen??ricamente ?? Gloria informe sobre medicamentos es solo para sanchez informaci??n, y no se considera margarito un consejo para el paciente. Debido a la naturaleza de informaci??n sobre drogas, por favor consulte sanchez medico o farmac??utico sobre el uso cl??peter espec??fico. La Sociedad American[employer] de Farmac[employer]uticos [employer]es SA., afirma que la informaci??n proporcionada a continuaci??n fue formulada con razonable est??ndar de asistencia, y en conformidad con el ekuk profesional. La [employer]iedad Americana de [employer]uticos [employer]ionales, [place]. no provee representaciones o garant??as, expresas o implicadas, incluyendo, maxim no limitado a, cualquiera garant??a de comercializaci??n y/o apropiado para rj funci??n particular, con respecto a tracey informaci??n y niega espec??ficamente tales garant??as. Se avisa a los usuarios que las decisiones con respecto a terapia de drogas son decisiones m??dicas complejas requiriendo decisiones independientes e informadas de un profesional de ana laura y que la informaci??n se da para prop??sitos de informaci??n solamente. La entera monograf??a de rj droga debe ser revisada considerando un comprensivo entendimiento de las acciones, usos, y efectos secundarios de la droga. La [employer]iedad [employer]a [employer]ut[employer], [place]. no endosa o recomienda el uso de ninguna medicina. La informaci??n no es un sustituto de asistencia m??dica. AHFS?? Patient Medication Information???. ?? Derechos reservados, 2023. Documento actualizado 15 Dic2022, [place] [employer]-System Pharmacists?? [address] [facility], [address], [address] Todos los derechos reservados. La duplicaci??n de gloria documento para sanchez uso comercial, deber?? ser autorizada por ASH. AHFS?? Patient Medication Information???. ?? Copyright, 2024 ?? * Micaela BAKER, Starla Bernardo: PERFORM Event Display: Patient Education Leaflets Authored Date: [id number] [facility] ?? [id number] Valsartan y Sacubitril ADVERTENCIA: informe a sanchez m??dico si est?? embarazada o planea quedar embarazada. No tome la combinaci??n de valsart??n y sacubutril si est?? embarazada. Si usted queda embarazada mientras est?? tomando valsart??n y sacubutril, deje de rubina la combinaci??n de estos medicamentos y llame a sanchez m??dico de inmediato. La combinaci??n de valsart??n y sacubutril podr??a causar la muerte o lesiones graves al feto cuando se diandra en los ??ltimos 6 meses del embarazo. ??PARA CU? LES condiciones o enfermedades se prescribe gloria medicamento? La combinaci??n de valsart??n y sacubutril se usa por lo general en combinaci??n con otros medicamentos para disminuir el riesgo de muerte y hospitalizaci??n en adultos con ciertos tipo de insuficiencia card??chaim. La combinaci??n de valsart??n y sacubutril tambi??n se usa para tratar ciertos tipos de insuficiencia card??chaim en ni??os de 1 a??o de edad y mayores. El valsart??n pertenece a rj clase de medicamentos llamados antagonistas de los receptores de angiotensina II. Sanchez acci??n consiste enbloquear la acci??n de determinadas sustancias naturales que tensan los vasos sangu??neos, lo que permite que la nikkie fluya m??s f??cilmente y que el coraz??n bombee con m??s eficacia. El sacubitril pertenece a rj clase de medicamentos denominados inhibidores de neprilisina. Funciona para ayudara controlar el volumen de la nikkie. ??C??MO se debe usar gloria medicamento? La presentaci??n de la combinaci??n de valsart??n y sacubutril es en tableta y en c??psula para espolvorear (c??psula que contiene gr??nulos orales, que son ashlie??as perlas de medicamento que puedenespolvorearse sobre los alimentos) para rubina por v??a oral. Por lo general, las tabletas se ana dos veces al d??a, con o sin alimentos. Las c??psulas para espolvorear se mezclan con alimentos y setoman dos veces al d??a. Para ayudarle a recordar que tome la combinaci??n de valsart??n y sacubutril, t??gupta aproximadamente a la misma hora todos los d??as. Siga atentamente las instrucciones que se encuentran en la etiqueta de sanchez medicamento, y pida a sanchez m??dico o farmac??utico que le explique cualquier parte que no comprenda. [place] valsart??n y sacubutril exactamente margarito se le indique. No tome rj cantidad mayor ni jaleesa del medicamento ni lo tome con m??s frecuencia de lo que indica la receta de sanchez m??dico. Para rubina las c??psulas espolvoreadas mezcladas con alimentos, lauren la c??psula y espolvoree todo el contenido sobre 1 o 2 cucharaditas de alimentos blandos, margarito compota de manzana, yogur o pudin. Trague la mezcla inmediatamente despu??s de mezclarla sin masticarla. No trague las c??psulas para espolvorear enteras; no masticar ni triturar los gr??nulos orales. Si usted o sanchez hijo no puede tragar las tabletas, sanchez farmac??utico puede preparar gloria medicamento margarito rj suspensi??n oral (l??quido). Agite jorge l el frasco de suspensi??n antes de cada dosis. Es posible que sanchez m??dico le indique que comience con rj dosis baja de valsart??n y sacubutril y que aumente sanchez dosis gradualmente. La combinaci??n de valsart??n y sacubutril controla la insuficiencia cardiaca, maxim no la harjeet. Contin??e tomando valsart??n y sacubutril, incluso si se siente jorge l. No deje de rubina valsart??n y sacubutril sin hablar con sanchez m??dico. P??erik a sanchez farmac??utico o a sanchez m??dico rj copia de la informaci??n del fabricante para el paciente. ??Qu?? OTRO USO se le da a gloria medicamento? A veces se receta gloria medicamento para otros usos; p??erik m??s informaci??n a sanchez m??dico o a sanchez farmac??utico. ??Cu??les son las PRECAUCIONES ESPECIALES que ru seguir? Antes de rubina valsart??n y sacubutril, ??? informe a sanchez m??dico y a sanchez farmac??utico si es al??rgico (hinchaz??n de la margarita, labios, lengua o garganta, o dificultad para respirar) al valsart??n, a otros bloqueadores de los receptores de angiotensina (BRA) margarito azilsart??n (Edarbi, en Edarbyclor), candesart??n (Atacand, en Atacand HCT), irbesart??n (Avapro, en Avalide), losart??n (Cozaar, en Hyzaar), olmesart??n (Benicar, en [place], en Benicar HCT, en Tribenzor), telmisart??n (Micardis, en Micardis HCT); inhibidores de la enzima convertidora de angiotensina (ECA) margarito benazepril (Lotensin, en Lotrel), captopril, enalapril (Epaned, Vasotec, en Vaseretic), fosinopril, lisinopril (Qbrelis, Zestril, en Zestoretic), moexipril, perindopril (en Prestalia), quinapril, ramipril (Altace) o trandolapril (Mavik, en Tarka); sacubitril; cualquier otro medicamento; o cualquiera de los ingredientes de las tabletas y c??psulas para espolvorear de valsart??n y sacubitril. P??erik a sanchez farmac??utico rj lista de los ingredientes. ??? Algunos medicamentos no deben tomarse con valsart??n y sacubutril. Otros medicamentos pueden causar cambios en la dosificaci??n o un control adicional cuando se ana con valsart??n y sacubutril. Antes de empezar a rubina valsart??n y sacubutril, aseg??rese de nito hablado con sanchez m??dico y farmac??utico sobrecualquier medicamento que est?? tomando actualmente o que planee urbina. Antes de empezar, dejar o cambiar de medicamento mientras est?? tomando valsart??n y sacubutril, consulte a sanchez m??dico o farmac??utico. ??? Los siguientes productos de venta bao o a base de plantas pueden interactuar con el valsart??n y sacubutril: aspirina, ibuprofeno (Advil, Motrin) y naproxeno (Aleve). Aseg??rese de informar a sanchez m??dico y farmac??utico que est?? tomando estos medicamentos antes de empezar sanchez tratamiento con valsart??n y sacubutril. No empiece a rubina ninguno de estos medicamentos mientras est?? tomando valsart??n y sacubutril sin consultarlo antes con sanchez m??dico. ??? informe a sanchez m??dico si tiene o alguna vez salmeron tenido angioedema hereditario (afecci??n hereditaria que causa episodios de hinchaz??n en las puneet, pies, margarita, v??as respiratorias o intestinos); diabetes o enfermedad renal o hep??raine. ??? informe a sanchez m??dico si est?? amamantando. No amamante mientras diandra valsart??n y sacubutril. ??? debe saber que el valsart??n y sacubutril pueden ocasionar mareo, aturdimiento y desmayo cuando se levanta muy r??pido cuando est?? acostado. [place] es m??s com??n al comenzar a rubina valsart??n y sacubitril por primera vez. Para ayudar a evitar gloria problema, lev??ntese de la cama despacio, apoyando krystin pies en el suelo por unos minutos antes de ponerse de pie. ??? debe saber que la diarrea,los v??mitos, no beber suficiente l??quido y sudar mucho pueden causar rj disminuci??n de la presi??n arterial, lo que puede causarle mareos y desmayos. Informe a sanchez m??dico si tiene alguno de estosproblemas o si los desarrolla vikash sanchez tratamiento. ??Qu?? DIETA ESPECIAL ru seguir mientras kinza gloria medicamento? No use sustitutos de maría que contengan potasio sin hablar con sanchez m??dico. Si sanchez m??dico le receta rj dieta baja en maría o baja en sodio, siga estas instrucciones atentamente. ??Qu?? tengo que hacer SI ME OLVIDO de rubina rj dosis? [place] la dosis que omiti?? magana pronto margarito lo recuerde. Sin embargo, si ya davonte es hora de la dosis siguiente, omita la que olvid?? y contin??e con sanchez horario de medicaci??n habitual. No tome rj dosis doble para compensar la que omiti??. ??Cu??les son los EFECTOS SECUNDARIOS que podr??a provocar gloria medicamento? Algunos efectos secundarios pueden ser graves. Si experimenta cualquiera de estos s??ntomas o cualquiera de los que se enumeran en la secci??n PRECAUCIONES ESPECIALES, llame a sanchez m??dico inmediatamente: ??? sarpullido ??? picaz??n ??? inflamaci??n de los labios, lengua, el albino o la garganta ??? falta de aliento La combinaci??n de valsartan y sacubitril puede ocasionar otros efectos secundarios. Llame a sanchez m??dico si experimenta alg??n problema inusual mientras diandra gloria medicamento. Si desarrolla un efecto secundario grave, usted o sanchez doctor puede enviar un informe al programa de divulgaci??n de efectos adversos 'MedWatch' de la Administraci??n de Alimentos y Medicamentos (FDA, por sanchez sigla en ingl??s) en la p??kinsey de Internet (https://www.fda.gov/Safety/MedWatch) o por tel??fono al . ??C??mo ru ALMACENAR o DISPONER de gloria medicamento? Mantenga gloria medicamento en sanchez empaque original, jorge l cerrado y fuera del alcance de los ni??os. Almacene las tabletas a temperatura ambiente y lejos del exceso de calor y humedad (no en el cuarto ba??o). Guarde el frasco de suspensi??n oral a temperatura ambiente por hasta 15 d??as; no lo refrigere. Conserve todos los medicamentos en un lugar alejado de la vista y el alcance de los ni??os, ya que muchos frascos no son a prueba de ni??os. Cierre siempre las tapas de seguridad. Guarde el medicamento en un lugar seguro, que est?? en alto y fuera de sanchez alcance. [email or web address] Si no necesita usar m??s un medicamento, bhumi??brenda para evitar que las mascotas, los ni??os y otras personas puedan tomarlos. No tire gloria medicamento por el inodoro. Utilice un programa de devoluci??n de medicamentos. Hable con sanchez farmac??utico sobre los programas de devoluci??n de medicamentos en sanchez comunidad. Si necesita m??s informaci??n sobre c??mo desechar de forma keyes los medicamentos,visite el sitio web de la FDA https://goo.RateSetter/c4Rm4p. ??Qu?? ru hacer en brian de rj SOBREDOSIS? En brian de sobredosis, llame a la l??faye de ayuda de control de envenenamiento al . La informaci??n tambi??n est?? disponible en l??faye en https://www.poisonhelp.org/help. Si la v??ctima se salmeron derrumbado, salmeron tenido rj convulsi??n, tiene dificultad para respirar, o no puede despertarse, llame inmediamente a los servicios de emergencia al 911. Los s??ntomas de rj sobredosis pueden incluir los siguientes: ??? mareos ??? desmayos ??Qu?? OTRA INFORMACI??N de importancia deber??a saber? Asista a todas las citas con sanchez m??dico y a las de laboratorio. Sanchez m??dico podr??a ordenar algunas pruebas de laboratorio para comprobar la respuesta de sanchez cuerpo al valsartan y sacubitril. No deje que nadie m??s tome sanchez medicamento. Preg??ntele a sanchez farmac??utico cualquier eris que tengasobre c??mo volver a surtir sanchez receta m??dica. Mantenga rj lista escrita de todos los medicamentos con receta y sin receta (de venta bao), vitaminas, minerales y suplementos diet??ticos que diandra actualmente. Lleve esta lista con usted cada vezque visite a un m??dico o si es ingresado en el hospital. Debe llevar la lista consigo en brian de emergencia. Nombres comercial(es): ??? Entresto? Gloria informe sobre medicamentos es solo para sanchez informaci??n, y no se considera margarito un consejo para el paciente. Debido a la naturaleza de informaci??n sobre drogas, por favor consulte sanchez medico o farmac??utico sobre el uso cl??peter espec??fico. La Sociedad Americana de Farmac??uticos Institucionales SA., afirma que la informaci??n proporcionada a continuaci??n fue formulada con razonable est??ndar de asistencia, y en conformidad con el ekuk profesional. La Sociedad Americana de Farmac??uticos Institucionales, [place]. no provee representaciones o garant??as, expresas o implicadas, incluyendo, maxim no limitado a, cualquiera garant??a de comercializaci??n y/o apropiado para rj funci??n particular, con respecto a tracey informaci??n y niega espec??ficamente tales garant??as. Se avisa a los usuarios que las decisiones con respecto a terapia de drogas son decisiones m??dicas complejas requiriendo decisiones independientes e informadas de un profesional de ana laura y que la informaci??n se da para prop??sitos de informaci??n solamente. La entera monograf??a de rj droga debe ser revisada considerando un comprensivo entendimiento de las acciones, usos, y efectos secundarios de la droga. La Sociedad Americana de Farmac[employer]uticos [employer]es, [place]. no endosa o recomienda el uso de ninguna medicina. La informaci??n no es un sustituto de asistencia m??dica. AHFS?? Patient Medication Information???. ?? Derechos reservados, 2023. Documento actualizado 2022, [place]-System Pharmacists?? [address], [address], [place], [place] [address] [facility]. Todos los derechos reservados. La duplicaci??n de gloria documento para sanchez uso comercial, deber?? ser autorizada por ASHP. FS?? Patient Medication Information???. ?? Copyright, 2024 ?? * Micaela BAKER, Starla Bernardo: PERFORM Event Display: Patient Education Leaflets Authored Date: [id number] [facility] ?? [id number] Apixaban ADVERTENCIA: Si tiene fibrilaci??n atrial (afecci??n en la que el coraz??n palpita de manera irregular, aumentando la probabilidad de que se formen co??gulos en el cuerpo y ocasionando posibles accidentes cerebrovasculares) y est?? tomando apixaban para ayudar a prevenir accidentes cerebrovasculares o co??gulosde nikkie graves, usted corre un mayor riesgo de tener un accidente cerebrovascular si peter de rubina gloria medicamento. No deje de rubina apixaban sin consultarlo antes con sanchez m??dico. Siga tomando apixaban, incluso si se siente jorge l. Aseg??rese de volver a surtir sanchez receta m??dica antes de que se leagote el medicamento de manera que no pierda ninguna dosis de apixaban. Si necesita dejar de rubina apixaban, es posible que sanchez m??dico le recete otro anticoagulante ( diluyente de la nikkie ) para ayudar a prevenir la formaci??n de un co??gulo, que podr??a causarle un accidente cerebrovascular. Si recibe anestesia epidural o mcleod o le realizan rj punci??n mcleod mientras diandra un anticoagulante margarito apixaban, puede correr el riesgo de que se le formen co??gulos de nikkie en o alrededor de la colum[place] vertebral, lo que podr??a ocasionar que quede paralizado. Informe a sanchez m??dico si le barrera dejado colocado un cat??ter epidural en el cuerpo o si le barrera hecho punciones epidurales o espinales de forma repetida, tiene o salmeron tenido deformidades de la columna vertebral o cirug??as de la columna vertebral. Informe a sanchez m??dico y farmac??utico si est?? tomando alguno de los siguientes medicamentos: anagrelida (Agrylin??); aspirina y otros medicamentos antiinflamatorios no esteroides (OVI)margarito ibuprofeno(Advil??, Motrin??, otros), indometacina (Indocin??, Tivorbex??), ketoprofeno y naproxeno (Aleve??, Anaprox??, otros); cilostazol (Pletal??); clopidogrel (Plavix??); dipiridamol (Persantine??); eptifibatida (Integrilin??); heparina; prasugrel (Effient??); ticagrelor (Brilinta??); ticl opidina; tirofib??n (Aggrastat??) y warfarina(Coumadin??, Jantoven??). Si experimenta alguno de lossiguientes s??ntomas, llame a sanchez m??dico inmediatamente: debilidad muscular (especialmente en las piernas y los pies), adormecimiento u hormigueo (especialmente en las piernas) o p??rdida de control de los intestinos o vejiga. Sanchez m??dico o farmac??utico le zhanna?? la hoja de informaci??n del fabricante para el paciente (Gu??a del medicamento) cuando inicie sanchez tratamiento con apixaban y cada vez que vuelva a surtir sanchez receta m??dica. Chery detenidamente la informaci??n y p??erik a sanchez m??dico o a sanchez farmac??utico que le aclaren cualquier eris. Tambi??n puede visitar el sitio web de la Administraci??n de Alimentos y Medicamentos (FDA) (https://www.fda.gov/Drugs/DrugSafety/jzi079314.htm), o el sitio web del fabricante para obtener la Gu??a del medicamento. Hable con sanchez m??dico sobre los riesgos de rubina apixaban. ??PARA CU? LES condiciones o enfermedades se prescribe gloria medicamento? El apixaban se usa para ayudar a prevenir accidentes cerebrovasculares o co??gulos de nikkie en personas que tienen fibrilaci??n atrial (afecci??n en la que el coraz??n palpita de manera irregular, aumentando la probabilidad de que se formen co??gulos en el cuerpo y posiblemente ocasionar accidentes cerebrovasculares) que no es causada por la enfermedad de la v??lvula del coraz??n. El apixaban tambi??n se utiliza para prevenir la trombosis venosa profunda (TVP; un co??gulo de nikkie, generalmente en la pierna) y la embolia pulmonar (EP; un co??gulo de nikkie en el pulm??n) en personas que se someten a rj cirug??a de reemplazo de cadera o de rodilla. El apixaban tambi??n se utiliza para tratar la TVP y la EP, y sanchez uso puede continuar para evitar que la TVP y la EP vuelvan a producirse unavez finalizado el tratamiento inicial. El apixaban pertenece a rj clase de medicamentos llamados inhibidores del factor Xa. Sanchez acci??n consiste en bloquear la acci??n de cierta sustancia natural que ayuda a formar los co??gulos de nikkie. ??C??MO se debe usar gloria medicamento? La presentaci??n del apixaban es rj tableta que se administra por v??a oral. Por lo general, se dianrda dos veces al d??a con o sin alimentos. Cuando se diandra apixaban para prevenir la TVP y la EP despu??s de rj cirug??a de reemplazo de cadera o rodilla, la primera dosis debe tomarse al menos entre 12 y 24 horas despu??s de la cirug??a. Por lo general, el apixaban se dianrda vikash 35 d??as despu??s de la cirug??a de reemplazo de cadera, y vikash 12 d??as despu??s de la cirug??a de reemplazo de rodilla. [place] el apixaban aproximadamente a las mismas horas todos los d??as. Siga cuidadosamente las instrucciones en la etiqueta del medicamento y preg??ntele a sanchez m??dico o farmac??utico cualquier cosa que no comprenda. [place] el apixaban exactamente margarito se lo indicaron. No tome rj cantidad mayor ni jaleesa del medicamento ni lo tome con m??s frecuencia de lo que indica la receta de sanchez m??dico. Si no puede tragar las tabletas, puede triturarlas y mezclarlas con agua, jugo o compota de manzana. [place] la mezcla hallie despu??s de prepararla. El apixaban tambi??n puede administrarse en determinados tipos de sondas de alimentaci??n. Pregunte a sanchez m??dico si deber??a rubina gloria medicamento en susonda de alimentaci??n. Siga atentamente las instrucciones de sanchez m??dico. Siga tomando apixaban, incluso si se siente jorge l, y no suspenda sanchez uso sin consultarlo antes con sum??dico. Si peter de rubina apixaban, el riesgo de formaci??n de co??gulos puede aumentar. ??Qu?? OTRO USO se le da a gloria medicamento? A veces se receta gloria medicamento para otros usos; p??erik m??s informaci??n a sanchez m??dico o a sanchez farmac??utico. ??Cu??les son las PRECAUCIONES ESPECIALES que ru seguir? Antes de rubina apixaban, ??? informe a sanchez m??dico y farmac??utico si es al??rgico al apixaban, a cualquier otro medicamento o a alguno de los ingredientes en las tabletas de apixaban. Preg??ntele a sanchez farmac??utico o consulte la Gu??a del medicamento para obtener rj lista de los ingredientes. ??? Informe a sanchez m??dico y far mac??utico qu?? medicamentos con y sin receta m??dica, vitaminas, suplementos nutricionales y productos a base de plantas diandra o tiene planeado rubina mientras est?? en tratamiento con apixaban. Es posible que sanchez m??dico deba cambiar la dosis de krystin medicamentos o mantenerlo bajo rj cuidadosa supervisi??n en brian de que presente efectos secundarios. ??? Los siguientes productos de venta bao o abase de plantas pueden interactuar con el apixaban: hierba de [place]; aspirina; OVI (margarito ibuprofeno [Advil??, Motrin??] y naproxeno [Aleve??, Naprosyn??]). Aseg??rese de informar a sanchez m??dico y farmac??utico que est?? tomando estos medicamentos antes de empezar a rubina el apixaban. No empiece a rubina ninguno de estos medicamentos mientras est?? tomando apixaban sin consultarlo antes con sanchez m??dico. ??? debe saber que el apixaban puede interactuar con ciertos medicamentos que pueden usarse para tratarlo si tiene un accidente cerebrovascular u otra emergencia m??dica. En brian de emergencia,usted o un familiar debe informar al m??dico o al personal de la pee de emergencias que le atiendeque est?? tomando apixaban. ??? informe a sanchez m??dico si tiene rj v??lvula card??chaim artificial o si tiene un sangrado abundante en cualquier parte de sanchez cuerpo que no se puede detener. Sanchez m??dico probablemente le indicar?? que no tome apixaban. ??? informe a sanchez m??dico si tiene o alguna vez salmeron tenido alg??n tipo de problema por hemorragias, s??ndrome antifosfol??pido (APS; rj afecci??n que causa co??gulos sangu??neos) o enfermedad renal o hep??raine. ??? informe a sanchez m??dico si est?? embarazada, planea quedar embarazada o est?? en per??odo de lactancia. Llame a sanchez m??dico si queda embarazadamientras diandra apixaban. ??? si se someter?? a rj cirug??a, incluida rj cirug??a dental, informe asu m??dico o dentista que diandra apixaban. Sanchez m??dico podr??a indicarle que deje de rubina apixaban antes de la cirug??a o procedimiento. Si necesita dejar de rubina apixaban porque se someter?? a rj cir ug??a, sanchez m??dico puede recetarle otro medicamento para prevenir la formaci??n de co??gulos de nikkie vikash gloria tiempo. Sanchez m??dico le indicar?? cu??ndo deber??a empezar a rubina apixaban de nuevo despu??s de la cirug??a. Siga estas instrucciones atentamente. ??? Llame a sanchez m??dico de inmediato sisufre rj ca??da o se lastima, especialmente si se golpea la jordan. Es posible que sanchez m??dico necesite examinarlo. ??Qu?? DIETA ESPECIAL ru seguir mientras kinza gloria medicamento? No es necesario que cambie sanchez dieta, a menos que sanchez m??dico le indique que debe hacerlo. ??Qu?? tengo que hacer SI ME OLVIDO de rubina rj dosis? [place] la dosis que omiti?? magana pronto margarito lo recuerde. Sin embargo, si ya davonte es hora de la dosis siguiente, omita la que olvid?? y contin??e con sanchez horario de medicaci??n habitual. No duplique la dosis para compensar la que omiti??. ??Cu??les son los EFECTOS SECUNDARIOS que podr??a provocar gloria medicamento? Algunos efectos secundarios pueden ser graves. Si presenta algunos de estos s??ntomas, llame a sanchez m??dico inmediatamente o busque tratamiento m??dico de emergencia: ??? hemorragia de las enc??as ??? sangrado de nariz ??? hemorragia vaginal profusa ??? orina de color castellano, lovell o caf? deposiciones garg, negras o alquitranadas ??? toser o vomitar nikkie o material que se ve margarito caf?? molido ??? hinchaz??n o dolor en las articulaciones ??? dolor de jordan ??? sarpullido (erupciones en la piel) ??? dolor u opresi??n en el pecho ??? hinchaz??n de la carao de la lengua ??? problemas para respirar ??? sibilancias ??? sensaci??n de mareo o debilidad El apixaban ananya que la nikkie se coagule normalmente, por lo que puede tardar m??s de lo habitualen detener el sangrado si se corta o se lesiona. Gloria medicamento tambi??n puede ocasionar que nikkie o se le formen hematomas m??s f??cilmente. Llame a sanchez m??dico de inmediato si el sangrado o los hematomas son inusuales, graves o no se pueden controlar. El apixaban puede provocar otros efectos secundarios. Llame a sanchez m??dico si tiene alg??n problema inusual mientras usa gloria medicamento. Si experimenta un efecto secundario grave, usted o sanchez m??dico puede enviar un informe al programa de Informes de Eventos Adversos de MedWatch de la Administraci??n de Drogas y Alimentos (FDA, Food and Drug Administration) en l??faye (https://www.fda.gov/Safety/MedWatch) o por tel??fono al ([phone]- [phone]). ??C??mo ru ALMACENAR o DISPONER de gloria medicamento? Mantenga gloria medicamento en sanchez envase original, cerrado herm??ticamente y fuera del alcance de losni??os. Gu??rdelo a temperatura ambiente y lejos chapo, el exceso de calor y de la humedad (no en el cuarto de ba??o). Debe desechar de forma keyes los medicamentos que ya no necesite para garantizar que las mascotas,los ni??os y otras personas no puedan consumirlos. Sin embargo, no debe tirar gloria medicamento por el inodoro. En sanchez lugar, la mejor manera de desechar el medicamento que ya no use es a james??s de unprograma de devoluci??n de medicamentos. Hable con sanchez farmac??utico o p??ngase en contacto con el departamento de desechos/reciclaje de sanchez localidad para informarse sobre los programas de recolecci??n de residuos en sanchez comunidad. Consulte el sitio web de la [place] sobre la eliminaci??n keyes de medicamentos (https://Zerve.RateSetter/c4Rm4p) para obtener m??s informaci??n si no tiene acceso a un programa de devoluci??n. Es importante mantener todos los medicamentos fuera de la vista y del alcance de los ni??os, ya quemuchos envases (margarito los pastilleros semanales y los frascos de gotas para los ojos, cremas, parches e inhaladores) no tienen tapa de seguridad y los ni??os podr??an abrirlos f??cilmente. Para proteger a los ni??os ashlie??os de rj intoxicaci??n, cierre siempre los tapones de seguridad y coloque inmediatamente el medicamento en un lugar seguro, que est?? elevado y alejado y fuera de sanchez vista y alcance. https://www.upandaway.org ??Qu?? ru hacer en brian de rj SOBREDOSIS? En brian de sobredosis, llame a la l??faye de ayuda de control de envenenamiento al . La informaci??n tambi??n est?? disponible en l??faye en https://www.poisonhelp.org/help. Si la v??ctima se salmeron desmayado, salmeron tenido rj convulsi??n, tiene problemas para respirar o no puede despertarse, llame inmediatamente a los servicios de emergencia al 911. Los s??ntomas de rj sobredosis pueden incluir los siguientes: ??? sangrado o moretones inusuales ??? orina de color castellano, tesha??n o lissa ??? deposiciones garg, negras o alquitranadas ??? toser o vomitar nikkie o material que se ve margarito caf?? molido ??Qu?? OTRA INFORMACI??N de importancia deber??a saber? Asista a todas las citas con sanchez m??dico. No deje que otras personas usen sanchez medicamento. Preg??ntele a sanchez farmac??utico cualquier eris que tenga sobre c??mo volver a surtir sanchez receta m??dica. Es importante que lleve un registro escrito de todos los medicamentos con y sin receta (de venta bao) que est?? tomando, as?? margarito de cualquier producto margarito vitaminas, minerales u otros suplementos diet??ticos. Debe llevar gloria registro cada vez que visite a sanchez m??dico o si lo hospitalizan. Tambi??n es importante que lleve siempre esta informaci??n en brian de emergencia. Nombres comercial(es): ??? Eliquis? Gloria informe sobre medicamentos es solo para sanchez informaci??n, y no se considera margarito un consejo para el paciente. Debido a la naturaleza de informaci??n sobre drogas, por favor consulte sanchez medico o farmac??utico sobre el uso cl??peter espec??fico. La Sociedad Americana de Farmac??uticos Institucionales SA., afirma que la informaci??n proporcionada a continuaci??n fue formulada con razonable est??ndar de asistencia, y en conformidad con el ekuk profesional. La Sociedad Americana de Farmac??uticos Institucionales, [place]. no provee representaciones o garant??as, expresas o implicadas, incluyendo, maxim no limitado a, cualquiera garant??a de comercializaci??n y/o apropiado para rj funci??n particular, con respecto a tracey informaci??n y niega espec??ficamente tales garant??as. Se avisa a los usuarios que las decisiones con respecto a terapia de drogas son decisiones m??dicas complejas requiriendo decisiones independientes e informadas de un profesional de ana laura y que la informaci??n se da para prop??sitos de informaci??n solamente. La entera monograf??a de rj droga debe ser revisada considerando un comprensivo entendimiento de las acciones, usos, y efectos secundarios de la droga. La Sociedad Americana de Farmac??uticos Institucionales, [place]. no endosa o recomienda el uso de ninguna medicina. La informaci??n no es un sustituto de asistencia m??dica. AHFS?? Patient Medication Information???. ?? Derechos reservados, 2023. Documento actualizado 15 Dic2022, [place]System Pharmacists?? [address], [address], [place], [place] [address] [place]. Todos los derechos reservados. La duplicaci??n de gloria documento para sanchez uso comercial, deber?? ser autorizada por ASHP. AHFS?? Patient Medication Information???. ?? Copyright, 2024 ?? * Ivon Allen RN: PERFORM, SIGN, VERIFY Event Display: Case Management Discharge Plan Authored Date: [id number] Patient: INOCENTE WALLACE Age: 70 years Sex: Male : 1955 Associated Diagnoses: None Author: Ivon Allen RN Discharge Plan Case Management Discharge Plan : Case Management Discharge Plan Data 09/06/2025 14:15 EST Discharge Level of Care at Discharge Homehealth/VNA Discharge VNA/Hospice/Home Care [facility] [phone] Name of Agency #1 [facility] Categories #1 Long Term Service Comments #1 The VNA will call you 1-2 days after d/c to setup your appointment. If you do no not hear from them, please call them. Electronically Signed on 09/06/25 02:16 PM Ivon Allen RN Patient Care team information Care Team Personnel Name: Imelda Sepulveda MD Position: [facility] Outreach Member Role: PCP Address: [address] [place] [address] [address] Imelda Sepulveda [place], [place] [address] Telecom: Name: Karla Spencer RN Position: [facility] RN Member Role: Primary Care Nurse Name: Loreto Corona RN Position: [facility] RN Member Role: Primary Care Nurse Name: Tonie Rivera RN Position: [facility] RN Member Role: Primary Care Nurse Name: Ericka Tom RN Position: [facility] RN Member Role: Primary Care Nurse Name: Higinio Cedeño RN Position: [facility] RN Member Role: Primary Care Nurse Name: Mariia Alejandro RN Position: [facility] RN Member Role: Primary Care Nurse Name: Pauline Greco RN Position: [facility] RN Member Role: Primary Care Nurse Name: Makenzie Hewitt RN Position: [facility] RN Member Role: Primary Care Nurse Name: Perla Navarrete LPN Position: [facility] RN Member Role: Primary Care Nurse Name: Ashli Razo RN Position: [facility] RN Member Role: Primary Care Nurse Care Team Related Persons Name: IOANA LARKIN Insurance Providers Guarantor name: Health Plan Information #: 1 Payer: [employer] Payer Identifier: FATOU Member Number: [id number] Group Number: [id number] Subscriber Identifier: [id number] Relationship to Subscriber: self Coverage Type: Medicare Managed Care (Includes Medicare Advantage Plans) Coverage Verification Date: FATOU Telecom: FATOU Address:
[2025-09-11] VITALS (10 sets, daily range): BP systolic 90–118; BP diastolic 55–78; PULSE 69–93; RESP 14–22; TEMP 36.5–36.9; O2SAT 97–100; BMI 25.9; BMI 26.0
--- NOTE | 2025-09-11 | ECG_ITS ---
Test Reason : CHEST PAIN Blood Pressure : */* mmHG Vent. Rate : 80 BPM Atrial Rate : 80 BPM P-R Int : 228 ms QRS Dur : 158 ms QT Int : 450 ms P-R-T Axes : 82 -74 98 degrees QTcB Int : 519 ms Atrial-sensed ventricular-paced rhythm Abnormal ECG When compared with ECG of 26-Aug-2025 13:03, Vent. rate has decreased by 37 bpm Referred By: Generic ED Physician Electronically Signed By: HENNY SANDHU
--- NOTE | ~2025-09-11 | XR_ITS ---
CLINICAL HISTORY: CP 1 view chest x-ray Comparison: CR - XR CHEST 1V - 08/26/25 22:20 EST Findings: Improved aeration of both lungs since the prior exam. No consolidation or effusion. Cardiomegaly. Similar to prior. Left subclavian AICD. No acute fracture. IMPRESSION: Cardiomegaly without failure. This document has been electronically signed by: Karla Portillo MD on 09/11/2025 01:33:01
[2025-09-11 00:36] LABS: Hematocrit 37.8 % (42.0-52.0); Hemoglobin 12.7 g/dl (14.0-18.0); Imm Gran Abs Auto 0.03 X10*3/uL (0.00-0.03); Imm Gran Pct Auto 0.4 % (0.0-0.4); Lymphocytes Absolute Auto 1.2 X10*3/uL (1.2-4.9); MANUAL DIFF FLAG NO; Mean Corpuscular HGB Conc 33.6 g/dl (31.0-36.0); Mean Corpuscular Hemoglobin 30.2 pg (27.0-33.0); Mean Corpuscular Volume 90.0 fL (80.0-98.0); NRBC Abs Auto 0.000 X10*3/uL (0.0-0.012); NRBC Pct Auto 0.0 /100WBC (0.0-0.2); Platelet Count 325 X10*3/uL (160-400); Red Blood Count 4.20 X10*6/uL (4.60-5.80); White Blood Count 8.6 X10*3/uL (4.8-10.8)
[2025-09-11 00:42] LABS: INTERNATIONAL NORM RATIO 1.5 (0.9-1.1); Prothrombin Time 17.6 SEC (11.2-13.5)
--- NOTE | 2025-09-11 00:45 | ED.CHESTPAIN ---
HPI - Chest Pain General Chief Complaint: Chest Pain Stated Complaint: CP & SOBS Time Seen by Provider: 09/11/25 00:43 Source: patient and EMS Mode of arrival: ambulatory Limitations: no limitations History of Present Illness ED Provider: Aman CORRALES HPI narrative: The patient is a 70-year-old male with a history of heart failure with an ejection fraction of 10-15%, hypertension, ICD, and atrial flutter, presenting to the ED for evaluation of chest pain which occurred throughout the day today and did not improve with Tylenol. Patient reports however the pain did resolve entirely shortly after arrival in the ED, at approximately 01:30. The patient was recently admitted at this facility for CHF exacerbation, at which time the patient presenting to the ED with severe hypertension, tachypnea, and tachycardia, requiring IV morphine, nitroglycerin, and Lasix. After being admitted but while still physically in the ED patient became tachycardic, unstable, and required emergent cardioversion. The patient was then transferred to [facility] where he reports he underwent cardiac catheterization on Tuesday, was discharged Tuesday. Patient states he does not know the results of his cardiac catheterization. Patient reports since returning home Tuesday he has been taking his normal dose of Lasix, and reports compliance with all other medications including Eliquis. Today the patient reports chest discomfort occurred without associated fever/chills, nausea, vomiting, diaphoresis, shortness of breath, cough, abdominal pain, or recent trauma. In the ED today patient appears chronically ill, but otherwise in no acute distress. The patient does have a mildly low blood pressure however chart review reveals patient often has labile blood pressures and patient even self reports he often has a mildly low blood pressure when feeling ?well?. Related Data Home Medications ?Medication ?Instructions ?Recorded ?Confirmed ezetimibe 10 mg tablet 10 mg PO DAILY 08/18/20 08/26/25 rosuvastatin 40 mg tablet 40 mg PO BEDTIME 08/18/20 08/26/25 empagliflozin 10 mg tablet 10 mg PO DAILY 02/27/25 08/26/25 (Jardiance) acetaminophen 650 mg 650 mg PO TID PRN pain 04/11/25 08/26/25 tablet,extended release carvedilol 6.25 mg tablet 6.25 mg PO BIDWM 08/06/25 08/26/25 Previous Rx's ?Medication ?Instructions ?Recorded spironolactone 25 mg tablet 25 mg PO DAILY 90 days #90 tabs 04/20/23 apixaban 5 mg tablet (Eliquis) 5 mg PO BID #60 tabs 03/28/25 sacubitril 24 mg-valsartan 26 mg 1 tab PO BID #180 tabs 06/18/25 tablet (Entresto) amiodarone 200 mg tablet 200 mg PO DAILY #30 tabs 08/19/25 furosemide 40 mg tablet 80 mg (2 x 40 mg) PO BID #180 tabs 08/22/25 Allergies Allergy/AdvReac Type Severity Reaction Status Date / Time No Known Allergies Allergy Verified 09/11/25 00:18 Review of Systems Review of Systems: Yes all other systems are reviewed and are negative [facility] Past Medical History Medical History (Updated 09/11/25 @ 02:57 by Aman Dewitt PA-C) ICD (implantable cardioverter-defibrillator) in place Acute CHF Atrial flutter by electrocardiogram Cardiomyopathy Anomalous coronary artery origin Atherosclerotic cardiovascular disease Heart failure with reduced ejection fraction HLD (hyperlipidemia) Acute on chronic combined systolic and diastolic CHF (congestive heart failure) Nonischemic cardiomyopathy CAD (coronary artery disease) Hypertension Pacemaker Surgical History Stented coronary artery S/P cardiac cath Hx of cardiac catheterization Family History Family History Father No problems noted. Mother No problems noted. Social History Social History Household Members: Family Household Members Other:: Dog Housing: House Do you presently have visiting nurse or other home services: No Alcohol intake: current Alcohol intake frequency: a few times a month Alcohol type: beer Patient Tobacco Use Status: Never used Tobacco Smoked in Last 30 Days: No e-Cigarette/Vaping Use: Never Used Second Hand Smoke Exposure: No Use of substances other than those prescribed or required for medical reasons: No Substance Use Type: Marijuana Advance Directives: Yes Advance Directives on File: Yes Advance Directives Date on File: 10/02/24 Do you have a plan to hurt others: No Plan service: No Current occupational status: disabled Physical Exam Vital Signs: Vital Signs: Last Vital Signs Temp 98.0 F 09/11/25 00:11 Pulse 73 09/11/25 02:13 Resp 19 09/11/25 02:13 BP 92/57 L 09/11/25 02:13 Pulse Ox 99 09/11/25 02:13 O2 Del Method Room Air 09/11/25 02:13 BMI result Body Mass Index 25.9 CONSTITUTIONAL: The patient appears chronically ill, mildly cachectic, otherwise non-toxic, and in no acute distress. Vital signs as documented. HEAD: Atraumatic, normocephalic. EYES: EOMs grossly intact, pupils equal, conjunctiva clear, no exudate. ENT: Nares patent, no discharge. Airway patent, no audible stridor, visible mucosa is pink and moist without noted lesions. NECK: Trachea is midline, no obvious masses or gross abnormalities. CHEST: Symmetric movement, pacemaker present, otherwise normal appearance. LUNGS: LS present and CTAB, no w/r/r. Non-labored work of breathing. CARDIAC: Regular Rhythm, S1/S2 appreciated, no murmurs, rubs or gallops. ABDOMEN: Abdomen soft and non-tender x4 quadrants, no palpable masses or organomegaly. : Deferred. EXTREMITIES: Normal tone, moves all extremities spontaneously without reported pain. No obvious acute injury or deformity noted. NEURO: Alert and oriented x3, CN II-XII appear grossly intact. Cerebellar Functioning grossly intact. No obvious sensory or motor deficits. Speech clear and appropriate. PSYCH: normal affect, appropriate eye contact, fluid speech, with appropriate response to questioning. No reported suicidality or homicidality. SKIN: Warm, dry, color appropriate, normal turgor. No rashes noted. Medical Decision Making Medical Decision Making MDM Narrative: 2:29 AM 09/11/2025 (Lacey CORRALES): The patient is a 70-year-old male with a history of heart failure with an ejection fraction of 10-15%, hypertension, ICD, and atrial flutter, presenting to the ED for evaluation of chest pain which occurred throughout the day today and did not improve with Tylenol. Patient reports however the pain did resolve entirely shortly after arrival in the ED, at approximately 01:30. The patient was recently admitted at this facility for CHF exacerbation, at which time the patient presenting to the ED with severe hypertension, tachypnea, and tachycardia, requiring IV morphine, nitroglycerin, and Lasix. After being admitted but while still physically in the ED patient became tachycardic, unstable, and required emergent cardioversion. The patient was then transferred to [facility] where he reports he underwent cardiac catheterization on Tuesday, was discharged Tuesday. Patient states he does not know the results of his cardiac catheterization. Patient reports since returning home Tuesday he has been taking his normal dose of Lasix, and reports compliance with all other medications including Eliquis. Today the patient reports chest discomfort occurred without associated fever/chills, nausea, vomiting, diaphoresis, shortness of breath, cough, abdominal pain, or recent trauma. In the ED today patient appears chronically ill, but otherwise in no acute distress. The patient does have a mildly low blood pressure however chart review reveals patient often has labile blood pressures and patient even self reports he often has a mildly low blood pressure when feeling ?well?. In the ED today patient's exam is reassuring, no rales or rhonchi, no increased work of breathing. The patient's chest x-ray shows cardiomegaly but no effusion or pulmonary edema. The patient's laboratory evaluation demonstrates no leukocytosis or significant anemia, there is no significant TUCKER. LFTs are unchanged from baseline. The patient's troponin is impaired compared to previous, EKG is paced. The patient's BNP is pending. The patient's electrolyte studies however demonstrate severe hyponatremia at 126. This appears new from previous admission. Despite the patient's excellent diuresis during his most recent hospital stay, patient appears to require IV fluid hydration for hyponatremia. We will initiate IV fluid hydration at 250 mL/hr to avoid flash pulmonary edema. The patient will require admission for continued gentle fluid hydration and gradual sodium correction. Of note the patient remains chest pain-free at this time, patient was informed of care plan and states he has been restricting his p.o. fluid intake since his discharge Tuesday as instructed by [facility]. We will initiate IV fluid hydration and plan for admission. Admission/Observation Consideration of admission/observation: Escalation of care including admission/observation considered Lab Data MDM Lab Attestation statement: I reviewed the patient's lab results. 09/11/25 00:29 09/11/25 00:29 Labs: Lab Results 09/11/25 Range/Units 00:29 WBC 8.6 (4.8-10.8) X10*3/uL RBC 4.20 L (4.60-5.80) X10*6/uL Hgb 12.7 L (14.0-18.0) g/dl Hct 37.8 L (42.0-52.0) % MCV 90.0 (80.0-98.0) fL MCH 30.2 (27.0-33.0) pg MCHC 33.6 (31.0-36.0) g/dl RDW 13.7 (11.0-16.0) % Plt Count 325 D (160-400) X10*3/uL MPV 10.1 (9.4-12.4) fL Immature Gran % (Auto) 0.4 (0.0-0.4) % Neut % (Auto) 72.3 (45-73) % Lymph % (Auto) 14.1 L (20-40) % [place] % (Auto) 11.6 H (2-11) % Eos % (Auto) 1.2 (0-4) % Baso % (Auto) 0.4 (0-2) % Lymph # (Auto) 1.2 (1.2-4.9) X10*3/uL [place] # (Auto) 1.0 (0.1-1.2) X10*3/uL Eos # (Auto) 0.1 (0.0-0.4) X10*3/uL Baso # (Auto) 0.0 (0.0-0.2) X10*3/uL Abs Immat Gran (auto) 0.03 (0.00-0.03) X10*3/uL Absolute Neuts (auto) 6.2 (2.0-8.3) x10*3/uL Absolute Nucleated RBC 0.000 (0.0-0.012) X10*3/uL Nucleated RBC % (auto) 0.0 (0.0-0.2) /100WBC PT 17.6 H (11.2-13.5) SEC INR 1.5 H (0.9-1.1) Sodium 126 L (135-145) mmol/L Potassium 4.7 D (3.3-5.1) mmol/L Chloride 91 L (96-108) mmol/L Carbon Dioxide 24 (22-29) mmol/L Anion Gap 16 (12-20) BUN 20 H (9-16) mg/dL Creatinine 1.01 (0.5-1.4) mg/dL Estim Creat Clear Calc 62.2 Estimated GFR > 60 Random Glucose 121 H (60-115) mg/dL Calcium 8.8 (8.4-10.2) mg/dL Total Bilirubin 1.4 H (0.0-1.0) mg/dL AST 43 H (5-37) U/L ALT 15 (0-40) U/L Alkaline Phosphatase 60 (39-117) U/L Troponin I High Sens 29.4 (<3.5-35.0) ng/L Total Protein 7.2 (6.5-8.0) g/dL Albumin 4.1 (3.5-5.0) g/dL Radiology Impression Discussion of test interpretation with radiology: I have reviewed the radiologist's reading. Radiologist Impression: 1 view chest x-ray Comparison: CR - XR CHEST 1V - 08/26/25 22:20 EST Findings: Improved aeration of both lungs since the prior exam. No consolidation or effusion. Cardiomegaly. Similar to prior. Left subclavian AICD. No acute fracture. IMPRESSION: Cardiomegaly without failure. This document has been electronically signed by: Karla Portillo MD on 09/11/2025 01:33:01 Discharge Plan Discharge Clinical Impression: Acute hyponatremia Patient Disposition: Admitted As Inpatient Print Language: Pashto
[2025-09-11 01:05] LABS: Alanine Aminotransferase 15 U/L (0-40); Albumin Level 4.1 g/dL (3.5-5.0); Alkaline Phosphatase 60 U/L (39-117); Anion Gap 16 (12-20); Aspartate Amino Transferase 43 U/L (5-37); Blood Urea Nitrogen 20 mg/dL (9-16); Calcium 8.8 mg/dL (8.4-10.2); Carbon Dioxide 24 mmol/L (22-29); Chloride 91 mmol/L (96-108); Creatinine Clr Calc Pharmacy 62.2; Estimated Glomerular Filt Rate > 60; Potassium 4.7 mmol/L (3.3-5.1); Sodium 126 mmol/L (135-145); Total Protein 7.2 g/dL (6.5-8.0)
[2025-09-11 01:18] LABS: Troponin-I High Sensitivity 29.4 ng/L (<3.5-35.0)
[2025-09-11 02:59] LABS: Appearance Urine Clear; Glucose Urine UA >=1000 mg/dL (Negative); PH 7.0 (5.0-9.0); Specific Gravity - Urine 1.015 (1.005-1.025); UMIC TRIGGER UACC YES
--- NOTE | 2025-09-11 03:07 | PM.IMHP ---
History of Present Illness Date of Service: 09/11/25 Attending physician on admission: Beto Shen Chief Complaint: chest pain patient is a 70-year-old male with a history of heart failure with an ejection fraction of 10-15%, hypertension, ICD, and atrial flutter, presenting to the ED for evaluation of chest pain Which occurred throughout the day yesterday and did not improve with Tylenol. Shortly after arriving in the ED the patient's pain did resolve. He was recently admitted here for CHF exacerbation however became unstable while still in the emergency department requiring transfer to [facility] and emergent cardioversion with cardiac catheterization 1 week ago today. He was discharged from [facility] 4 days ago. He is unaware of the results of his cardiac catheterization. He has been taking his medications as prescribed including his diuretics and Eliquis. He denies any fever, chills, nausea, vomiting, diaphoresis, shortness of breath, cough, abdominal pain or recent trauma. Workup in the ED significant for hyponatremia. Patient to be admitted for sodium correction. Review of Systems Constitutional: Constitutional: Denies body ache(s), Denies chills, Denies fatigue, Denies fever(s) and Denies headache(s) Eyes: Eyes: Denies change in vision ENT: Denies headache(s), Denies nasal congestion and Denies nasal discharge Cardiovascular: Cardiovascular: Reports chest pain, Denies rapid heart rate, Denies leg edema, Denies lightheadedness and Denies dyspnea Respiratory: Respiratory: Denies chest congestion, Denies cough, Denies dyspnea and Denies wheezing Gastrointestinal: Gastrointestinal: Denies abdominal pain, Denies diarrhea, Denies nausea and Denies vomiting Genitourinary: Genitourinary: Denies dysuria and Denies urinary urgency Musculoskeletal: Musculoskeletal: Denies back pain and Denies myalgias Integumentary/Breasts: Skin/Breast: Denies rash Neurologic: Denies confusion and Denies headache(s) Psychiatric: Psychiatric: Denies confusion Endocrine: Endocrine: Denies fatigue Hematologic/Lymphatic: Hematologic/Lymphatic: Denies easy bleeding Allergic/Immunologic: Allergic/Immunologic: Denies wheezing [facility] Medical History (Updated 09/11/25 @ 03:14 by Perla Galvan PA-C) ICD (implantable cardioverter-defibrillator) in place Acute CHF Atrial flutter by electrocardiogram Cardiomyopathy Anomalous coronary artery origin Atherosclerotic cardiovascular disease Heart failure with reduced ejection fraction HLD (hyperlipidemia) Acute on chronic combined systolic and diastolic CHF (congestive heart failure) Nonischemic cardiomyopathy CAD (coronary artery disease) Hypertension Pacemaker Family History Father No problems noted. Mother No problems noted. Surgical History Stented coronary artery S/P cardiac cath Hx of cardiac catheterization Social History Household Members: Family Household Members Other:: Dog Housing: House Do you presently have visiting nurse or other home services: No Alcohol intake: current Alcohol intake frequency: a few times a month Alcohol type: beer Patient Tobacco Use Status: Never used Tobacco e-Cigarette/Vaping Use: Never Used Second Hand Smoke Exposure: No Substance Use Type: Marijuana Advance Directives Date on File: 10/02/24 service: No Current occupational status: disabled Meds Allergies Allergy/AdvReac Type Severity Reaction Status Date / Time No Known Allergies Allergy Verified 09/11/25 00:18 Active Medications: Current Medications Acetaminophen (Acetaminophen 325 Mg Tablet) 650 mg PO Q6H PRN PRN Reason: Pain, Mild 1-3,fever,headache Apixaban (Apixaban 5 Mg Tablet) 5 mg PO BID NATALIIA Calcium Carbonate (Calcium Carbonate 750 Mg Tab.Chew) 750 mg PO Q4H PRN PRN Reason: Heartburn Sodium Chloride (Ns) 1,000 mls @ 250 mls/hr IV .Q4H NATALIIA Stop: 09/11/25 06:29 Last Admin: 09/11/25 02:38 Dose: 250 mls/hr Magnesium Hydroxide (Milk Of Magnesia 30 Ml Oral.Susp) 30 ml PO DAILY PRN PRN Reason: Constipation Melatonin (Melatonin 3 Mg Tablet) 6 mg PO BEDTIME PRN PRN Reason: Insomnia Ondansetron HCl (Ondansetron Hcl 4 Mg/2 Ml Vial) 4 mg IVPUSH Q8H PRN PRN Reason: Nausea and Vomiting Oxycodone HCl (Oxycodone Hcl Immed Release 5 Mg Tablet) 5 mg PO Q6H PRN PRN Reason: Pain, Severe (Pain Scale 7-10) Sodium Chloride (0.9 % Sodium Chloride Flush 3 Ml Syringe) 3 ml IVFLUSH QSHIFT [facility] Tramadol HCl (Tramadol Hcl 50 Mg Tablet) 50 mg PO Q6H PRN PRN Reason: Pain, Moderate(Pain Scale 4-6) Home Medications ?Medication ?Instructions ?Recorded ?Confirmed ?Last Taken ?Type ezetimibe 10 mg tablet 10 mg PO DAILY 08/18/20 08/26/25 08/25/25 History rosuvastatin 40 mg tablet 40 mg PO BEDTIME 08/18/20 08/26/25 08/25/25 History empagliflozin 10 mg tablet 10 mg PO DAILY 02/27/25 08/26/25 08/25/25 History (Jardiance) acetaminophen 650 mg 650 mg PO TID PRN pain 04/11/25 08/26/25 08/05/25 History tablet,extended release carvedilol 6.25 mg tablet 6.25 mg PO BIDWM 08/06/25 08/26/25 08/25/25 History Physical Exam Vital Signs and Narrative: Vital Signs: Last Vital Signs Temp 98.0 F 09/11/25 00:11 Pulse 73 09/11/25 02:13 Resp 19 09/11/25 02:13 BP 90/58 L 09/11/25 03:04 Pulse Ox 99 09/11/25 02:13 O2 Del Method Room Air 09/11/25 02:13 BMI result Body Mass Index 25.9 General: AOx3, no acute distress, 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 Motor grossly intact bilaterally Extremities: No pitting edema Psych: Appropriate affect Const: General: No confusion Orientation/consciousness: No confusion Neuro: General: No confusion Results Labs 09/11/25 00:29 09/11/25 00:29 Labs: Laboratory Results - last 24 hr 09/11/25 09/11/25 00:29 02:52 MCV 90.0 MCH 30.2 MCHC 33.6 RDW 13.7 Plt Count 325 D MPV 10.1 Immature Gran % (Auto) 0.4 Neut % (Auto) 72.3 Lymph % (Auto) 14.1 L [place] % (Auto) 11.6 H Eos % (Auto) 1.2 Baso % (Auto) 0.4 Lymph # (Auto) 1.2 [place] # (Auto) 1.0 Eos # (Auto) 0.1 Baso # (Auto) 0.0 Abs Immat Gran (auto) 0.03 Absolute Neuts (auto) 6.2 Absolute Nucleated RBC 0.000 Nucleated RBC % (auto) 0.0 PT 17.6 H INR 1.5 H Anion Gap 16 Estim Creat Clear Calc 62.2 Estimated GFR > 60 Random Glucose 121 H Calcium 8.8 Total Bilirubin 1.4 H AST 43 H ALT 15 Alkaline Phosphatase 60 Troponin I High Sens 29.4 Total Protein 7.2 Albumin 4.1 Urine Color Yellow Urine Appearance Clear Urine pH 7.0 Ur Specific [place] 1.015 Urine Protein Negative Urine Glucose (UA) >=1000 H Urine Ketones Trace Urine Blood Negative Urine Nitrite Negative Ur Leukocyte Esterase Negative Assessment and Plan (1) Acute hyponatremia: Status: Acute (2) Chest pain: Status: Acute Plan patient is a 70-year-old male with a history of heart failure with an ejection fraction of 10-15%, hypertension, ICD, and atrial flutter, presenting to the ED for evaluation of chest pain Which occurred throughout the day yesterday and did not improve with Tylenol. acute hyponatremia - Na 126, recieved 1L in ED - repeat BMP prior to initiating further fluids - Cardiology and nephrology consult - fluid restriction of 1.2 L per day - monitor BMP HFrEF, no acute exacerbation - BNP pending - hold spironolactone, Lasix chest pain, resolved - EKG nonischemic - troponin at baseline - monitor on telemetry - statin HTN - BP soft, hold home meds a flutter - hold rate control, continue eliquis and amiodarone prolonged QTC - avoid QT prolonging medications - repeat EKG after electrolyte repletion med rec pending full code VTE prophylaxis: Eliquis patient with acute hyponatremia, requiring admission for at least 2 midnight stay for gentle IV fluid correction and specialist consultations. Quality Stroke Does the patient have a stroke diagnosis?: No VTE Prior VTE?: No VTE Risk Level:: Medical - moderate - high VTE Device Contraindication: Treatment Not Indicated VTE Drug Contraindication: N/A - Med Ordered
[2025-09-11 03:14] LABS: Osmolality, Serum 267 mosm/kg (281-305)
[2025-09-11 04:56] LABS: Hematocrit 34.3 % (42.0-52.0); Hemoglobin 11.6 g/dl (14.0-18.0); Mean Corpuscular HGB Conc 33.8 g/dl (31.0-36.0); Mean Corpuscular Hemoglobin 30.3 pg (27.0-33.0); Mean Corpuscular Volume 89.6 fL (80.0-98.0); NRBC Abs Auto 0.000 X10*3/uL (0.0-0.012); NRBC Pct Auto 0.0 /100WBC (0.0-0.2); Platelet Count 270 X10*3/uL (160-400); Red Blood Count 3.83 X10*6/uL (4.60-5.80); White Blood Count 7.4 X10*3/uL (4.8-10.8)
[2025-09-11 05:14] LABS: Anion Gap 13 (12-20); Blood Urea Nitrogen 16 mg/dL (9-16); Calcium 8.3 mg/dL (8.4-10.2); Carbon Dioxide 25 mmol/L (22-29); Chloride 95 mmol/L (96-108); Creatinine Clr Calc Pharmacy 80.6; Estimated Glomerular Filt Rate > 60; Potassium 3.9 mmol/L (3.3-5.1); Sodium 129 mmol/L (135-145)
--- NOTE | 2025-09-11 08:56 | PHA.MEDREC ---
Pharmacy Consult ? Medication Reconciliation Pharmacy has completed the medication reconciliation. Spoke with pt to confirm medications.
--- NOTE | 2025-09-11 10:08 | P.CONCA_ITS ---
History of Present Illness History of Present Illness Date of Service: 09/11/25 Chief complaint: hyponatremia Narrative: This is a cardiology consultation regarding chest pain. Generally seen by Dr. Anne. Fairly complicated history. 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 Multiple recent hospitalizations to [facility] and it seems that he had the flutter ablation in the initial admission but then readmitted within a few days with congestive heart failure. According to note, felt to be possibly noncompliance as he apparently went to [facility] right after being discharged the 1st time. Treated accordingly and he was discharged home. Currently, he is back in [place] with chest pains. It does not present for the last couple of days or so. No clear exertional or relieving factors. After arrival to the ER, it seems the pain did resolve and he is currently pain- free. His breathing seems to be at baseline. Additionally, found to have low- sodium in his labs. Review of Systems 2 Review of Systems: Yes all other systems are reviewed and are negative Constitutional: Constitutional: Reports as per HPI and Reports no additional constitutional complaints Eyes: Eyes: Reports as per HPI and Denies no additional eye complaints ENT: Denies system reviewed and no additional complaints, except as documented and Reports as per HPI Cardiovascular: Cardiovascular: Reports as per HPI, Reports no additional cardiovascular complaints, Denies acrocyanosis, Denies cool extremities, Reports chest pain, Denies leg edema, Denies lightheadedness, Denies palpitations and Denies dyspnea Respiratory: Respiratory: Reports as per HPI, Denies no additional respiratory complaints and Denies dyspnea Gastrointestinal: Gastrointestinal: Reports as per HPI and Denies no additional gastrointestinal complaints Genitourinary: Genitourinary: Reports no additional male genitourinary complaints and Reports as per HPI Musculoskeletal: Musculoskeletal: Reports no additional musculoskeletal complaints and Reports as per HPI Integumentary/Breasts: Skin/Breast: Reports system reviewed and no additional complaints, except as docu Neurologic: Reports system reviewed and no additional complaints, except as documented and Reports as per HPI Psychiatric: Psychiatric: Reports no additional psychiatric complaints and Reports as per HPI Endocrine: Endocrine: Reports no additional endocrine complaints, Reports as per HPI and Denies palpitations Hematologic/Lymphatic: Hematologic/Lymphatic: Reports no additional hematologic/lymphatic complaints and Reports as per HPI Allergic/Immunologic: Allergic/Immunologic: Reports no additional allergic/immunologic complaints and Reports as per HPI [facility] Past Medical History Medical History (Updated 09/11/25 @ 03:14 by Perla Galvan PA-C) ICD (implantable cardioverter-defibrillator) in place Acute CHF Atrial flutter by electrocardiogram Cardiomyopathy Anomalous coronary artery origin Atherosclerotic cardiovascular disease Heart failure with reduced ejection fraction HLD (hyperlipidemia) Acute on chronic combined systolic and diastolic CHF (congestive heart failure) Nonischemic cardiomyopathy CAD (coronary artery disease) Hypertension Pacemaker Family History Family History Father No problems noted. Mother No problems noted. Surgical History Surgical History Stented coronary artery S/P cardiac cath Hx of cardiac catheterization Social History Social History Household Members: None Household Members Other:: Dog Housing: Apartment Do you presently have visiting nurse or other home services: Yes Alcohol intake: current Alcohol intake frequency: a few times a month Alcohol type: beer Patient Tobacco Use Status: Never used Tobacco Smoked in Last 30 Days: No e-Cigarette/Vaping Use: Never Used Second Hand Smoke Exposure: No Use of substances other than those prescribed or required for medical reasons: No Substance Use Type: Marijuana Have you been hit, kicked, punched, or otherwise hurt by someone within the past year? If so, by whom?: No Do you feel safe in your current relationship?: No Current Relationship Is there a partner from a previous relationship who is making you feel unsafe now?: No Are you made to feel afraid or neglected: No Advance Directives: Yes Advance Directives on File: Yes Advance Directives Date on File: 10/02/24 Do you have a plan to hurt others: No Plan Recently lost weight without trying: Yes How much weight loss: Unsure Eating poorly because of decreased appetite: No Nutrition screen score: 4 Nutrition Risks: No Nutritional Risk service: No Current occupational status: disabled Meds Allergies Allergy/AdvReac Type Severity Reaction Status Date / Time No Known Allergies Allergy Verified 09/11/25 00:18 Active Medications: Current Medications Acetaminophen (Acetaminophen 325 Mg Tablet) 650 mg PO Q6H PRN PRN Reason: Pain, Mild 1-3,fever,headache Apixaban (Apixaban 5 Mg Tablet) 5 mg PO BID [facility] Last Admin: 09/11/25 09:13 Dose: 5 mg Calcium Carbonate (Calcium Carbonate 750 Mg Tab.Chew) 750 mg PO Q4H PRN PRN Reason: Heartburn Magnesium Hydroxide (Milk Of Magnesia 30 Ml Oral.Susp) 30 ml PO DAILY PRN PRN Reason: Constipation Melatonin (Melatonin 3 Mg Tablet) 6 mg PO BEDTIME PRN PRN Reason: Insomnia Oxycodone HCl (Oxycodone Hcl Immed Release 5 Mg Tablet) 5 mg PO Q6H PRN PRN Reason: Pain, Severe (Pain Scale 7-10) Sodium Chloride (0.9 % Sodium Chloride Flush 3 Ml Syringe) 3 ml IVFLUSH QSHIFT [facility] Last Admin: 09/11/25 06:52 Dose: Not Given Tramadol HCl (Tramadol Hcl 50 Mg Tablet) 50 mg PO Q6H PRN PRN Reason: Pain, Moderate(Pain Scale 4-6) Home Medications ?Medication ?Instructions ?Recorded ?Confirmed ?Last Taken ?Type ezetimibe 10 mg tablet 10 mg PO DAILY 08/18/2008/2409/10/25 History rosuvastatin 40 mg tablet 40 mg PO BEDTIME 08/18/2009/10/25 History empagliflozin 10 mg tablet 10 mg PO DAILY 02/27/2509/10/25 History (Jardiance) acetaminophen 650 mg 650 mg PO TID PRN pain 04/1109/11/25 08/05/25 History tablet,extended release carvedilol 6.25 mg tablet 6.25 mg PO BIDWM 08/06/2509/10/25 History clopidogrel 75 mg tablet 75 mg PO DAILY 09/11/2508/2409/10/25 History furosemide 40 mg tablet 40 mg PO DAILY 09/11/2508/2409/10/25 History Physical Exam 2 Vital Signs: Vital Signs: Last Vital Signs Temp 97.7 F 09/11/25 03:25 Pulse 69 09/11/25 05:19 Resp 14 09/11/25 05:19 BP 90/60 09/11/25 05:19 Pulse Ox 100 09/11/25 05:19 O2 Del Method Room Air 09/11/25 05:19 BMI result Body Mass Index 25.9 Const: General: comfortable and no acute distress O rientation/consciousness: patient oriented x3 HEENT: Other: Unremarkable Head: Yes normal to inspection Neck: Neck: Yes normal visual inspection Chest: Chest palpation & inspection: normal inspection of the chest Resp: Other: Few basal crackles Cardio: Palpation: normal PMI Heart sounds: S1 normal heart sound present, S2 normal heart sound present, no gallops, no murmurs and no rubs GI: Palpation (GI): Soft to palpation Back/Spine/Pelvis: Other: unremarkable Skin: General skin exam: no rashes or lesions noted Neuro: General: patient oriented x3 Extrem: General: Yes normal to inspection Psych: Mental Status: mental status grossly normal Objective Labs and Meds 09/11/25 04:49 09/11/25 04:49 Lab results: Laboratory Results - last 24 hr 09/11/25 09/11/25 09/11/25 00:29 02:52 04:49 WBC 8.6 7.4 RBC 4.20 L 3.83 L Hgb 12.7 L 11.6 L Hct 37.8 L 34.3 L MCV 90.0 89.6 MCH 30.2 30.3 MCHC 33.6 33.8 RDW 13.7 13.7 Plt Count 325 D 270 MPV 10.1 10.0 Immature Gran % (Auto) 0.4 Neut % (Auto) 72.3 Lymph % (Auto) 14.1 L Stokes % (Auto) 11.6 H Eos % (Auto) 1.2 Baso % (Auto) 0.4 Lymph # (Auto) 1.2 Stokes # (Auto) 1.0 Eos # (Auto) 0.1 Baso # (Auto) 0.0 Abs Immat Gran (auto) 0.03 Absolute Neuts (auto) 6.2 Absolute Nucleated RBC 0.000 0.000 Nucleated RBC % (auto) 0.0 0.0 PT 17.6 H INR 1.5 H Sodium 126 L 129 L Potassium 4.7 D 3.9 Chloride 91 L 95 L Carbon Dioxide 24 25 Anion Gap 16 13 BUN 20 H 16 Creatinine 1.01 0.78 Estim Creat Clear Calc 62.2 80.6 Estimated GFR > 60 > 60 Random Glucose 121 H 97 Osmolality 267 L Lactic Acid 0.9 Calcium 8.8 8.3 L Total Bilirubin 1.4 H AST 43 H ALT 15 Alkaline Phosphatase 60 Troponin I High Sens 29.4 NT-Pro-B Natriuret Pep 6368.2 H Total Protein 7.2 Albumin 4.1 Urine Color Yellow Urine Appearance Clear Urine pH 7.0 Ur Specific [place] 1.015 Urine Protein Negative Urine Glucose (UA) >=1000 H Urine Ketones Trace Urine Blood Negative Urine Nitrite Negative Ur Leukocyte Esterase Negative Urine RBC 0-2 Urine WBC 0-5 Ur Squamous Epith Cells 0-2 Urine Bacteria None Seen Hyaline Casts 0-2 ECG Interpretation: EKG with atrial sensed, ventricular paced rhythm at 80/Min. Assessment and Plan (1) Chest pain: Status: Acute (2) Atrial flutter: Status: Acute (3) Heart failure with reduced ejection fraction: Status: Acute (4) Biventricular ICD (implantable cardioverter-defibrillator) in place: Status: Acute Plan High sensitivity troponins within range. NT pro BNP is lower than the last level. Last echocardiogram from March with LVEF of 10-15%. Moderate mitral regurgitation. [id number] pulmonary hypertension. In the chest x-ray, cardiomegaly without any congestive heart failure. Overall, with regard to the chest pain, possible pericarditis type presentation related to recent ablation. However, may also be noncardiac. Difficult to be definitive. Based on the troponins, no clear evidence of ACS. Based on the NT proBNP, no clear acute CHF either. We will get an echocardiogram to ensure there was no pericardial effusion. Discussed with AUTO RENTAL SUPERVISOR at the bedside. Procedures Date of Service Date of Service: 09/11/25
--- NOTE | 2025-09-11 12:21 | MHC.CM.PN ---
Addendum entered by Manuela Harrison 09/11/25 13:08: PUT IN [facility] STATE THEY CAN ACCEPT THE PATIENT, THE PATIENT RETURNED TO THE HOSPITAL PRIOR TO THEM BEING ABLE TO DO SOC. Original Note: IMM GIVEN 09/11. THIS CM MET WITH PATIENT WITH THE ASSISTANCE OF A SENIOR PRIVATE CLIENT ADVISOR. PATIENT STATES HE LIVES ALONE AT HOME, HAS MAINTENANCE CHIEF SERVICES 22 HRS/WK. PATIENT BELIEVES HE IS ACTIVE WITH [facility], RETURN REFERRAL SENT IN [facility], AWAITING AGENCY CONFIRMATION. DME: SYLVIA MCGINNIS. HCP ON FILE AND VERIFIED. DP: RETURN HOME/RESUME PREVIOUS SERVICES, DAUGHTER WILL TRANSPORT HIM HOME AT DISCHARGE. PCP: DR. NIRALI BRADLEY
--- OUTSIDE RECORDS SUMMARY | 2025-09-11 14:30 | XMS_ITS | Patient Health Record ---
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 Name Role Phone Imelda Sepulveda Primary Care Provider Unavailab Fabio Amin Unavailable [phone] Reason For Referral No Information Medications Medication [...] No Encounters Encounter Location Date Provider Diagnosis [facility] [address] [place] [address] 11/15/2024 Fabio Silverio Plan Of Treatment No Information Insurance Providers Payer Name Payer Address Payer Phone Subscriber Number Group Number Insured Name Patient Relationship to Insured Coverage Start Date Coverage End Date [facility] [employer] Claims [address] [place] [id number] Trent[place] Dasilva Self - patient is the insured Medical (General) History Medical History History ICD Code Heart disease High Blood Pressure Stroke Surgical History Surgery Date(Month/Year) cardiac pacemeker
--- NOTE | 2025-09-11 15:35 | PM.EVENT ---
Event Note Date of Service: 09/11/25 Event Note: Patient seen examined at bedside this morning, patient states that his chest pain has improved, patient at this time being worked up as well for hyponatremia. Time Spent With Patient Time: Total time managing care of this patient today ____ minutes.
--- NOTE | 2025-09-11 15:56 | PM.CNNEP ---
History of Present Illness Reason for Consult Consult date: 09/11/25 Chief Complaint Chief complaint: hyponatremia History of Present Illness Narrative: 70-year-old gentleman with significant cardiac history including mixed cardiomyopathy with EF 10-15%, CAD status post multiple PCI, a flutter status post ablation, POULTRY INSEMINATOR placement had prior hospitalization at this hospital earlier this month discharged home on 08/26/2025, later admitted at [facility] with CHF exacerbation between 09/02/2025 till 09/05/2025 where he had some post diuresis TUCKER is presenting to the hospital with chest pain today. Renal is consulted for the evaluation and management of hyponatremia Review of Systems Review of Systems Const : no body aches, no chills, no excessive sweating and no fatigue Eyes: no blurry vision and no change in vision ENT: no bleeding gums and no change in voice, no dizziness Card: +chest pain, + shortness of breath, no orthopnea, no PND Resp: no cough, no excessive phlegm production, no SOB GI: no abdominal pain and no nausea, no vomiting : no hematuria, no urinary frequency and no difficulty voiding Musc: no abnormal gait, no bone pain Neuro: no abnormal movements, no weakness, no dizziness, no abnormal gait and no behavioral changes Psych: no behavioral changes and no change in appetite Endo: no change in body appearance, no cold intolerance, no excessive sweating and no fatigue PMFSH Past Medical History Medical History (Updated 09/11/25 @ 03:14 by Perla Galvan PA-C) ICD (implantable cardioverter-defibrillator) in place Acute CHF Atrial flutter by electrocardiogram Cardiomyopathy Anomalous coronary artery origin Atherosclerotic cardiovascular disease Heart failure with reduced ejection fraction HLD (hyperlipidemia) Acute on chronic combined systolic and diastolic CHF (congestive heart failure) Nonischemic cardiomyopathy CAD (coronary artery disease) Hypertension Pacemaker Family History Family History Father No problems noted. Mother No problems noted. Surgical History Surgical History Stented coronary artery S/P cardiac cath Hx of cardiac catheterization Social History Social History Household Members: None Household Members Other:: Dog Housing: Apartment Do you presently have visiting nurse or other home services: Yes Alcohol intake: current Alcohol intake frequency: a few times a month Alcohol type: beer Patient Tobacco Use Status: Never used Tobacco Smoked in Last 30 Days: No e-Cigarette/Vaping Use: Never Used Second Hand Smoke Exposure: No Use of substances other than those prescribed or required for medical reasons: No Substance Use Type: Marijuana Have you been hit, kicked, punched, or otherwise hurt by someone within the past year? If so, by whom?: No Do you feel safe in your current relationship?: No Current Relationship Is there a partner from a previous relationship who is making you feel unsafe now?: No Are you made to feel afraid or neglected: No Advance Directives: Yes Advance Directives on File: Yes Advance Directives Date on File: 10/02/24 Do you have a plan to hurt others: No Plan Recently lost weight without trying: Yes How much weight loss: Unsure Eating poorly because of decreased appetite: No Nutrition screen score: 4 Nutrition Risks: No Nutritional Risk service: No Current occupational status: disabled Meds Allergies Allergy/AdvReac Type Severity Reaction Status Date / Time No Known Allergies Allergy Verified 09/11/25 00:18 Active Medications: Current Medications Acetaminophen (Acetaminophen 325 Mg Tablet) 650 mg PO Q6H PRN PRN Reason: Pain, Mild 1-3,fever,headache Amiodarone HCl (Amiodarone Hcl 200 Mg Tablet) 200 mg PO DAILY [facility] Apixaban (Apixaban 5 Mg Tablet) 5 mg PO BID [facility] Last Admin: 09/11/25 09:13 Dose: 5 mg Atorvastatin Calcium (Atorvastatin Calcium 80 Mg Tablet) 80 mg PO BEDTIME [facility] Calcium Carbonate (Calcium Carbonate 750 Mg Tab.Chew) 750 mg PO Q4H PRN PRN Reason: Heartburn Carvedilol (Carvedilol 6.25 Mg Tablet) 6.25 mg PO BIDWM [facility]; Protocol Clopidogrel Bisulfate (Clopidogrel Bisulfate 75 Mg Tablet) 75 mg PO DAILY [facility] Ezetimibe (Ezetimibe 10 Mg Tablet) 10 mg PO DAILY [facility] Furosemide (Furosemide 40 Mg Tablet) 40 mg PO DAILY [facility]; Protocol Magnesium Hydroxide (Milk Of Magnesia 30 Ml Oral.Susp) 30 ml PO DAILY PRN PRN Reason: Constipation Melatonin (Melatonin 3 Mg Tablet) 6 mg PO BEDTIME PRN PRN Reason: Insomnia Oxycodone HCl (Oxycodone Hcl Immed Release 5 Mg Tablet) 5 mg PO Q6H PRN PRN Reason: Pain, Severe (Pain Scale 7-10) Sacubitril/Valsartan (Sacubitril/Valsartan 1 Tab Tablet) 1 tab PO BID [facility]; Protocol Sodium Chloride (0.9 % Sodium Chloride Flush 3 Ml Syringe) 3 ml IVFLUSH QSHIFT [facility] Last Admin: 09/11/25 15:42 Dose: Not Given Tramadol HCl (Tramadol Hcl 50 Mg Tablet) 50 mg PO Q6H PRN PRN Reason: Pain, Moderate(Pain Scale 4-6) Home Medications ?Medication ?Instructions ?Recorded ?Confirmed ?Last Taken ?Type ezetimibe 10 mg tablet 10 mg PO DAILY 08/18/20 09/11/25 09/10/25 History rosuvastatin 40 mg tablet 40 mg PO BEDTIME 08/18/20 09/11/25 09/10/25 History empagliflozin 10 mg tablet 10 mg PO DAILY 02/27/25 09/11/25 09/10/25 History (Jardiance) acetaminophen 650 mg 650 mg PO TID PRN pain 04/11/25 09/11/25 08/05/25 History tablet,extended release carvedilol 6.25 mg tablet 6.25 mg PO BIDWM 08/06/25 09/11/25 09/10/25 History clopidogrel 75 mg tablet 75 mg PO DAILY 09/11/25 09/11/25 09/10/25 History furosemide 40 mg tablet 40 mg PO DAILY 09/11/25 09/11/25 09/10/25 History Physical Exam Vital Signs: Last Vital Signs Temp 98.4 F 09/11/25 13:39 Pulse 82 09/11/25 13:39 Resp 22 H 09/11/25 13:39 BP 90/55 L 09/11/25 13:39 Pulse Ox 98 09/11/25 13:39 O2 Del Method Room Air 09/11/25 13:39 BMI result Body Mass Index 25.9 General: not in any acute distress, ill appearing, appears dry Nutritional Appearance: well nourished and normal weight Eyes: appearance normal, both eyes and all related structures; Alignment and Position: alignment normal and position normal Neck: No lymphadenopathy, no thyromegaly Resp: bilateral air entry equal, no added sounds present Cardio: Regular rate, regular rhythm; Heart sounds: S1 normal heart sound present and S2 normal heart sound present GI: soft, nontender, no guarding, no hepatosplenomegaly : bladder normal to inspection, bladder normal to palpation, no renal angle tenderness Skin: no rashes or lesions noted and elasticity normal Neuro: alert, oriented x 3, moves all extremities Results Lab Results 09/11/25 04:49 09/11/25 04:49 Lab results: Chemistry 09/11/25 09/11/25 00:29 04:49 Sodium 126 L 129 L Potassium 4.7 D 3.9 Carbon Dioxide 24 25 BUN 20 H 16 Creatinine 1.01 0.78 Calcium 8.8 8.3 L Hematology 09/11/25 09/11/25 00:29 04:49 WBC 8.6 7.4 Hgb 12.7 L 11.6 L Plt Count 325 D 270 Urinalysis 09/11/25 02:52 Urine Color Yellow Urine Appearance Clear Urine pH 7.0 Ur Specific [place] 1.015 Urine Protein Negative Urine Glucose (UA) >=1000 H Urine Ketones Trace Urine Blood Negative Urine Nitrite Negative Ur Leukocyte Esterase Negative Urine RBC 0-2 Urine WBC 0-5 Ur Squamous Epith Cells 0-2 Hyaline Casts 0-2 Urine Studies 09/11/25 12:52 Urine Osmolality 377 Assessment and Plan (1) Hypertension: Status: Acute (2) Acute hyponatremia: Status: Acute Plan Acute hyponatremia: Bedside echo showing small RV, septum deviated towards the RV, IVC fluctuating with breathing about 1.4 cm. His hyponatremia is possibly secondary to poor oral intake and natiruesis with Lasix. His urine sodium is 36, urine osmolality is 377 as a response to possibly secondary to volume depletion. Would avoid salt loading given his history of CHF and EF of 10%. Continue with the current management the sodium should improve by itself. Withold lasix for today, reevaluate volume status tomorrow prior to starting on diuretic therapy. Hypertension: Blood pressures are on the lower side Patient is on Entresto, carvedilol and spironolactone Patient might benefit from some colloidal replacement like albumin to tolerate antihypertensives. Hold entresto if he develops TUCKER Procedures Date of Service Date of Service: 09/11/25
--- NOTE | 2025-09-11 17:00 | CA_ITS ---
Transthoracic Echocardiogram Patient (Last, First, Middle): Trenton Ojeda, Gender: M Date of : 1955 Age: 70 Procedure Date: 09/11/2025 Procedure Type: Transthoracic Echocardiogram Location: ER Height: 167.64 cm Weight: 72.58 kg BSA: 1.82 m2 Heart Rate: bpm BP: 100 / 68 mmHg Physician/Ophthalmologist: Referring MD: Bi Ling MD Symptoms: chest pain Study Quality: Good ECG Rhythm: Ventriculary paced rhythm Conclusions: - The left ventricular systolic function is severely decreased. The calculated ejection fraction is 10% by biplane method. - There is mild to moderate tricuspid valve regurgitation. - Moderate to severe pulmonary hypertension is present. Findings Left Ventricle Severely increased left ventricular cavity size. The left ventricular systolic function is severely decreased. The calculated ejection fraction is 10% by biplane method. There is severe global hypokinesis. Wall Motion Rest Echo Findings The basal inferior and mid inferior segments are akinetic. Right Ventricle Moderately increased right ventricular cavity size. There is mildly decreased right ventricular systolic function. Tricuspid Valve There is mild to moderate tricuspid valve regurgitation. The right ventricular systolic pressure is 64 mmHg. Moderate to severe pulmonary hypertension is present. Venous The inferior vena cava is mildly dilated and collapses less than 50% with inspiration. Prior Study Comparison No significant change compared to prior study dated: 04/09/2025. Measurements 2D Linear Measurements IVSd: 0.90 0.6-0.9/0.6-1.0 cm LVIDd: 7.80 3.9-5.3/4.2-5.9 cm LVIDd Index: 4.29 2.4-3.2/2.2-3.1 cm/m2 LVIDs: 7.17 2.0-3.6 cm LVPWd: 1.00 0.7-1.1 cm LV Mass: 454.18 67-162/88-224 g LV Mass Index: 249.55 43-95/49-115 g/m2 LVOT Diam: 2.10 3.0+(-)1.3 cm 2D Systolic Function EF 4C: 9.22 >55% EF 2C: 11.00 >55% EF BiP: 10.10 >55% LVOT LVOT Pk Aris: 0.41 LVOT Mn Aris: 0.30 LVOT VTI: 0.07 LVOT Pk Grad: 1.00 LVOT Mn Grad: 0.00 LVOT Diam: 2.10 LVOT Area: 3.46 Right Ventricle TAPSE (mm): 16.00 TVS' Aris: 10.00 Tricuspid Valve TR Pk Aris: 3.75 TR Pk Grad: 56.00 RA Press: 8.00 RVSP: 64.00 Updated in Other Vendor System with Status of Final Bi Ling MD electronically signed on 09/11/2025 4:38:11 PM with status of Final
--- NOTE | 2025-09-11 18:06 | PC.NURSE ---
Tigered Dr. Caruso bp-90/61 too low for coreg and lasix. Ok to hold medications.
[2025-09-12] VITALS: BP 96/67; PULSE 81; RESP 19; TEMP 36.9; O2SAT 97
[2025-09-12 04:00] VITALS: BP 93/61; PULSE 75; RESP 19; TEMP 36.6; O2SAT 96
[2025-09-12 06:26] LABS: Hematocrit 35.4 % (42.0-52.0); Hemoglobin 11.7 g/dl (14.0-18.0); Mean Corpuscular HGB Conc 33.1 g/dl (31.0-36.0); Mean Corpuscular Hemoglobin 30.2 pg (27.0-33.0); Mean Corpuscular Volume 91.2 fL (80.0-98.0); NRBC Abs Auto 0.000 X10*3/uL (0.0-0.012); NRBC Pct Auto 0.0 /100WBC (0.0-0.2); Platelet Count 242 X10*3/uL (160-400); Red Blood Count 3.88 X10*6/uL (4.60-5.80); White Blood Count 7.0 X10*3/uL (4.8-10.8)
[2025-09-12 06:47] LABS: Anion Gap 11 (12-20); Blood Urea Nitrogen 13 mg/dL (9-16); Calcium 8.5 mg/dL (8.4-10.2); Carbon Dioxide 26 mmol/L (22-29); Chloride 101 mmol/L (96-108); Creatinine Clr Calc Pharmacy 96.7; Estimated Glomerular Filt Rate > 60; Potassium 4.2 mmol/L (3.3-5.1); Sodium 134 mmol/L (135-145); Uric Acid 4.1 mg/dL (3.4-7.0)
[2025-09-12 07:40] VITALS: BP 119/81; PULSE 111; RESP 20; TEMP 36.3; O2SAT 100
[2025-09-12] MEDS: 0.9 % Sodium Chloride Flush 3 ML SYRINGE IVFLUSH (08:40)
--- NOTE | 2025-09-12 09:40 | PM.PNCARD ---
Subjective Subjective Date of Service: 09/12/25 Interval history: He states he is feeling better today. He is not having any active chest pain or shortness of breath or any other complaints. Would like to go home. Review of Systems Review of Systems Yes all other systems are reviewed and are negative Constitutional: Reports as per HPI and Reports no additional constitutional complaints Eyes: Reports as per HPI and Denies no additional eye complaints Denies system reviewed and no additional complaints, except as documented and Reports as per HPI Cardiovascular: Reports as per HPI, Reports no additional cardiovascular complaints, Denies acrocyanosis, Denies cool extremities, Denies chest pain, Denies leg edema, Denies lightheadedness, Denies palpitations and Denies dyspnea Respiratory: Reports as per HPI, Denies no additional respiratory complaints and Denies dyspnea Gastrointestinal: Reports as per HPI and Denies no additional gastrointestinal complaints Genitourinary: Reports no additional male genitourinary complaints and Reports as per HPI Musculoskeletal: Reports no additional musculoskeletal complaints and Reports as per HPI Skin/Breast: Reports system reviewed and no additional complaints, except as docu Reports system reviewed and no additional complaints, except as documented and Reports as per HPI Psychiatric: Reports no additional psychiatric complaints and Reports as per HPI Endocrine: Reports no additional endocrine complaints, Reports as per HPI and Denies palpitations Hematologic/Lymphatic: Reports no additional hematologic/lymphatic complaints and Reports as per HPI Allergic/Immunologic: Reports no additional allergic/immunologic complaints and Reports as per HPI Physical Exam Vital Signs: Last Vital Signs Temp 97.4 F 09/12/25 07:40 Pulse 111 H 09/12/25 07:40 Resp 20 09/12/25 07:40 BP 119/81 09/12/25 07:40 Pulse Ox 100 09/12/25 07:40 O2 Del Method Room Air 09/12/25 04:00 BMI result Body Mass Index 26.0 Const General: comfortable and no acute distress Orientation/consciousness: patient oriented x3 HEENT Other: Unremarkable Head: Yes normal to inspection Neck Neck: Yes normal visual inspection Chest Chest palpation & inspection: normal inspection of the chest Resp Auscultation: clear to auscultation bilaterally Cardio Palpation: normal PMI Heart sounds: S1 normal heart sound present, S2 normal heart sound present, no gallops, no murmurs and no rubs GI Palpation (GI): Soft to palpation Back/Spine/Pelvis Other: unremarkable Skin General skin exam: no rashes or lesions noted Neuro General: patient oriented x3 Extrem General: Yes normal to inspection Psych Mental Status: mental status grossly normal Objective Labs and Meds 09/12/25 06:01 09/12/25 06:02 Lab results: Laboratory Results - last 24 hr 09/11/25 09/12/25 09/12/25 12:52 06:01 06:02 WBC 7.0 RBC 3.88 L Hgb 11.7 L Hct 35.4 L MCV 91.2 MCH 30.2 MCHC 33.1 RDW 13.9 Plt Count 242 MPV 10.1 Absolute Nucleated RBC 0.000 Nucleated RBC % (auto) 0.0 Sodium 134 L Potassium 4.2 Chloride 101 Carbon Dioxide 26 Anion Gap 11 L BUN 13 Creatinine 0.65 Estim Creat Clear Calc 96.7 Estimated GFR > 60 Random Glucose 86 Uric Acid 4.1 Calcium 8.5 Random Cortisol 11.8 Urine Osmolality 377 Ur Random Sodium 36.0 Progress Note: A&P Assessment and plan (1) Chest pain: Status: Acute (2) Atrial flutter: Status: Acute (3) Heart failure with reduced ejection fraction: Status: Acute (4) Biventricular ICD (implantable cardioverter-defibrillator) in place: Status: Acute Plan High sensitivity troponins within range. NT pro BNP is lower than the last level. In the echocardiogram as today, severely increased left ventricular size at 7.8 cm. LVEF is severely reduced at 10%. [id number] pulmonary hypertension. Overall, there has been itself could be just from heart failure versus pericarditis from recent ablation not clear. Anyway, fully resolved. He can continue his usual medical regimen for now. Discussed about potential transferred to another hospital for advanced heart failure consultation/hemodynamic workup extra but he states he would want to just go home. High-risk of readmissions. Discussed with at [facility], who felt he should probably be evaluated at a Transplant center. Will try to arrange this as outpatient. Discussed with hospitalist. Time Spent With Patient Time: Total time managing care of this patient today ____ minutes. Progress Note: Quality Stroke Does the patient have a stroke diagnosis?: No Procedures Date of Service Date of Service: 09/12/25
[2025-09-12 12:00] VITALS: BP 92/67; PULSE 86; RESP 20; TEMP 36.3; O2SAT 100
--- NOTE | 2025-09-12 14:36 | PM.DS ---
DS: Providers Provider Date of Service: 09/12/25 Date of admission: 09/11/25 03:02 Date of discharge: 09/12/25 Primary care physician: Imelda Sepulveda MD Consults: 09/11/25 03:02 Consult to Cardiology Routine Consulting Provider: [facility] Reason for consultation: hyponatremia, CHF management Consult to Nephrology Routine Consulting Provider: [facility] Reason for consultation: hyponatremia Attending physician on discharge: Richard Nance Discharging clinician: Richard Nance DS: Diagnosis Discharge Diagnosis (1) Chest pain: Status: Acute (2) Atrial flutter: Status: Acute (3) Heart failure with reduced ejection fraction: Status: Acute (4) Biventricular ICD (implantable cardioverter-defibrillator) in place: Status: Acute DS: Summary Hospital Course Hospital Course: 70-year-old male with past medical history significant for HFrEF 10-15%, CAD status post PCI to LAD/RCA, CRTD placement, atrial flutter with ablation, HTN, who presented to the ED complaining of chest pain, not alleviated with Tylenol. On arrival to the ED chest pain resolved, on labs high sensitivity troponins within range, NT proBNP lower than recent admission, as well as hyponatremia. Patient seen by Cardiology and Nephrology, suggested on avoiding salt loading. Per Cardiology, discussed possible potential transfer to a hospital with advanced heart failure consultation/hemodynamic workup, however patient reported that he wishes to go home and mentioned that he was going to follow up as an outpatient at [place]. On discharge, patient's chest pain free, saturating well on room air. Of note, patient was recently admitted to the hospital for CHF exacerbation, becoming unstable and requiring transferred to [facility] with emergent cardioversion with cardiac catheterization about 1 week ago. 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 On arrival patient was chest pain-free, found to have hyponatremia. Patient placed on fluid restrictions, Lasix was placed on hold. Per Cardiology suggested on following up as an outpatient at advanced heart failure Clinic. CAD s/p PCI chest pain, resolved, could be secondary to recent ablation - EKG nonischemic - troponin at baseline - monitor on telemetry - continue Plavix and rosuvastatin 40 and ezetimibe 10mg HFrEF, no acute exacerbation HTN - patient with BP 90/60, will continue jardiance, carvedilol will hold off on BP medications and medications for HF at this time, to follow up as an outpatient, patient may benefit from midodrine -given patient HFrEF, patient at high risk for readmission -follow up as an outpatient with advanced CHF clinic hyponatremia, improved - Na 126 on admission -> 134 on discharge - Cardiology and nephrology consult - continue fluid restriction of 1.2 L per day - monitor BMP a flutter s/p ablation - continue eliquis, amiodarone and low dose carvedilol Time Attestation Discharge Coordination Time (in mins): 35 minutes Quality: Safe Use of Opioids Does Pt have an Active Cancer Diagnosis on the Problem List?: No Quality: Stroke Does the patient have a stroke diagnosis?: No Physical Exam Exam: Exam: General: AxOx3, No acute distress Head: AT/NC ENT: Moist mucous membranes Neck: supple CVS; RRR, S1 S2 normal Lungs: Clear bilateral breath sounds, no wheezes or crackles Abd: Soft non tender, non distended Ext: No edema and no calf tenderness MSK: moving all 4 limbs Skin: No cyanosis or edema Psych: Cooperative with exam Neurology: no focal deficit Vital Signs: Vital Signs: Last Vital Signs Temp 97.4 F 09/12/25 12:00 Pulse 86 09/12/25 12:00 Resp 20 09/12/25 12:00 BP 92/67 09/12/25 12:00 Pulse Ox 100 09/12/25 12:00 O2 Del Method Room Air 09/12/25 12:00 BMI result Body Mass Index 26.0 DS: Data Data Completed and Pending Completed studies during hospitalization [Text1]: Procedures Jewish of Cardiac Rhythm, Single (08/26/25) Labs on day of discharge: Laboratory Results - last 24 hr 09/12/25 09/12/25 06:01 06:02 WBC 7.0 RBC 3.88 L Hgb 11.7 L Hct 35.4 L MCV 91.2 MCH 30.2 MCHC 33.1 RDW 13.9 Plt Count 242 MPV 10.1 Absolute Nucleated RBC 0.000 Nucleated RBC % (auto) 0.0 Sodium 134 L Potassium 4.2 Chloride 101 Carbon Dioxide 26 Anion Gap 11 L BUN 13 Creatinine 0.65 Estim Creat Clear Calc 96.7 Estimated GFR > 60 Random Glucose 86 Uric Acid 4.1 Calcium 8.5 Random Cortisol 11.8 Preliminary micro results at discharge 09/11/25 02:52 Blood Culture - Preliminary Blood - Venous No growth after 24 hours. 09/11/25 02:52 Blood Culture - Preliminary Blood - Venous No growth after 24 hours. Discharge Plan Discharge Anticipated Discharge Date/Time: 09/12/25 14:27 Patient Disposition: Home, Self-Care Discharge Diagnosis: HFrEF, chest pain Referrals: [facility] [Outside] - 1 Week Imelda Sepulveda MD [Primary Care Provider, Internal Medicine] - 1 Week Bi Ling MD [Physician, Cardiology] - 2 Weeks Discharge Medications: Continued Jardiance 10 mg tablet 10 mg PO DAILY acetaminophen 650 mg tablet extended release 650 mg PO TID PRN (Reason: pain) carvedilol 6.25 mg tablet 6.25 mg PO BIDWM Rx Instructions: must administer with a meal/food. Take one tablet twice a day clopidogrel 75 mg tablet 75 mg PO DAILY rosuvastatin 40 mg tablet 40 mg PO BEDTIME ezetimibe 10 mg tablet 10 mg PO DAILY Eliquis 5 mg tablet 5 mg PO BID Qty: 60 5RF Rx Instructions: New amiodarone 200 mg tablet 200 mg PO DAILY Qty: 30 2RF Discontinued spironolactone 25 mg tablet 25 mg PO DAILY 90 Days Qty: 90 3RF Entresto 24-26 mg tablet 1 tab PO BID Qty: 180 3RF furosemide 40 mg tablet 40 mg PO DAILY Discharge Orders: Discharge Order (Routine); Ordered 09/12/25 Ordered By: Richard Nance Activity on Discharge: As tolerated Stand Alone Forms: Patient Portal Discharge page Print Language: Slovenian Care Plan Goals: Follow up with cardiology as outpatient as well as advanced heart failure clinic limit your salt and water intake Health Concerns: Heart failure atrial flutter Plan of Treatment: will continue with low dose carvedilol and jardiance, will place other blood pressure medications on hold given low blood pressure, to follow up with advanced Heart failure clinic. 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 On arrival patient was chest pain-free, found to have hyponatremia. Patient placed on fluid restrictions, Lasix was placed on hold. Per Cardiology suggested on following up as an outpatient at advanced heart failure Clinic. Patient Instructions: Heart Failure (DC)
--- NOTE | 2025-09-12 14:37 | P.PNNP_ITS ---
Subjective Subjective Date of Service: 09/12/25 Interval history: Events noted. Comfortable. No nausea or vomiting Physical Exam 2 Vital Signs: Vital Signs: Last Vital Signs Temp 97.4 F 09/12/25 12:00 Pulse 86 09/12/25 12:00 Resp 20 09/12/25 12:00 BP 92/67 09/12/25 12:00 Pulse Ox 100 09/12/25 12:00 O2 Del Method Room Air 09/12/25 12:00 BMI result Body Mass Index 26.0 Comfortable Neck supple no JVD. Lungs entry equal no rales. Heart S1-S2 heard no gallop or rub. Abdomen soft nontender. Neuro alert awake oriented. No asterixis. Objective Data Labs 09/12/25 06:01 09/12/25 06:02 Labs: Laboratory Results - last 24 hr 09/12/25 09/12/25 06:01 06:02 WBC 7.0 RBC 3.88 L Hgb 11.7 L Hct 35.4 L MCV 91.2 MCH 30.2 MCHC 33.1 RDW 13.9 Plt Count 242 MPV 10.1 Absolute Nucleated RBC 0.000 Nucleated RBC % (auto) 0.0 Sodium 134 L Potassium 4.2 Chloride 101 Carbon Dioxide 26 Anion Gap 11 L BUN 13 Creatinine 0.65 Estim Creat Clear Calc 96.7 Estimated GFR > 60 Random Glucose 86 Uric Acid 4.1 Calcium 8.5 Random Cortisol 11.8 Microbiology Microbiology Results: Microbiology 09/11/25 02:52 Blood - Venous Blood Culture - Preliminary No growth after 24 hours. 09/11/25 02:52 Blood - Venous Blood Culture - Preliminary No growth after 24 hours. Procedures Date of Service Date of Service: 09/12/25 Assessment & Plan Assessment and plan (1) Acute hyponatremia: Status: Acute Plan Hyponatremia due to decreased free water clearance in the setting of heart failure. Restrict oral free water intakes and other hypotonic fluids Agree with Lasix which should increase free water clearance and correct hyponatremia. No indication for salt tablets or urea powder at this time. Shall follow as needed Time Spent With Patient Time: Total time managing care of this patient today ____ minutes. Progress Note: Quality Stroke Does the patient have a stroke diagnosis?: No
--- NOTE | 2025-09-12 15:53 | MHC.CM.PN ---
PT CLEARED TO DC HOME TODAY WITH NO SERVICES EMS DRIVER PROVIDED TRANSPORT
== END 2025-09-12 15:19 | disposition home or self-care (01) | DRG 948 ==
LOC: HO.ED 02:57 → HO.EDOVER 03:05 → HO.IMC 19:01
PROVIDERS: Internal Medicine Critical Care Medicine; Physician Assistant; Admitting Provider Physician Assistant; Emergency Provider Emergency Medicine; PCP Internal Medicine; Visit Provider Student in an Organized Health Care Education/Training Program
DX: G89.18 Other acute postprocedural pain (principal); E87.1 Hypo-osmolality and hyponatremia; I50.22 Chronic systolic (congestive) heart failure; I48.92 Unspecified atrial flutter; I25.10 Atherosclerotic heart disease of native coronary artery without angina pectoris; I34.0 Nonrheumatic mitral (valve) insufficiency; I27.20 Pulmonary hypertension, unspecified; I11.0 Hypertensive heart disease with heart failure; R94.31 Abnormal electrocardiogram [ECG] [EKG]; Z95.810 Presence of automatic (implantable) cardiac defibrillator; Z95.5 Presence of coronary angioplasty implant and graft; Z79.01 Long term (current) use of anticoagulants; Z79.899 Other long term (current) drug therapy
CPT/HCPCS: 36415; 71045; 80048; 80053; 81001; 81003; 82533; 83605; 83880; 83930; 83935; 84300; 84484; 84550; 85025; 85027; 85610; 87040; 93005; 93308; 99285

== ENCOUNTER → 2025-09-11 00:40 | Outpatient (BNV) | payer OTHER, SELFPAY | PROVIDERS: Emergency Provider Emergency Medicine; PCP Internal Medicine; Visit Provider Radiology Diagnostic Radiology | DX: I51.7 Cardiomegaly (principal) | CPT/HCPCS: 71045 ==

== ENCOUNTER → 2025-09-11 03:02 | Outpatient (BNV) | payer OTHER, SELFPAY | PROVIDERS: Admitting Provider Physician Assistant; Emergency Provider Emergency Medicine; PCP Internal Medicine; Visit Provider Internal Medicine Critical Care Medicine | DX: I10 Essential (primary) hypertension (principal); E87.1 Hypo-osmolality and hyponatremia | CPT/HCPCS: 99222 ==

== ENCOUNTER → 2025-09-11 03:02 | Outpatient (BNV) | payer OTHER, SELFPAY | PROVIDERS: Admitting Provider Physician Assistant; Emergency Provider Emergency Medicine; PCP Internal Medicine; Visit Provider Internal Medicine | DX: R07.9 Chest pain, unspecified (principal); I48.92 Unspecified atrial flutter; I50.20 Unspecified systolic (congestive) heart failure; Z95.810 Presence of automatic (implantable) cardiac defibrillator; I36.1 Nonrheumatic tricuspid (valve) insufficiency; I27.20 Pulmonary hypertension, unspecified | CPT/HCPCS: 93010; 93308; 99221 ==

== ENCOUNTER → 2025-09-11 03:02 | Outpatient (BNV) | payer OTHER, SELFPAY | PROVIDERS: Admitting Provider Physician Assistant; Emergency Provider Emergency Medicine; PCP Internal Medicine; Visit Provider Student in an Organized Health Care Education/Training Program | DX: I50.23 Acute on chronic systolic (congestive) heart failure (principal); I48.92 Unspecified atrial flutter; E87.1 Hypo-osmolality and hyponatremia; Z95.810 Presence of automatic (implantable) cardiac defibrillator | CPT/HCPCS: 99222; 99239; 99499 ==

== ENCOUNTER → 2025-09-11 03:02 | Outpatient (BNV) | payer OTHER, SELFPAY | PROVIDERS: Admitting Provider Physician Assistant; Emergency Provider Emergency Medicine; PCP Internal Medicine; Visit Provider Internal Medicine Hypertension Specialist | DX: E87.1 Hypo-osmolality and hyponatremia (principal) | CPT/HCPCS: 99232 ==

== ENCOUNTER → 2025-09-12 12:34 | Outpatient (BNV) | payer OTHER, SELFPAY | PROVIDERS: PCP Internal Medicine | DX: R94.31 Abnormal electrocardiogram [ECG] [EKG] (principal); Z95.0 Presence of cardiac pacemaker | CPT/HCPCS: 93010; 93295 ==

== ENCOUNTER 2025-09-12 20:23 | Inpatient (IN) | payer OTHER, SELFPAY ==
--- OUTSIDE RECORDS SUMMARY | 2024-11-16 04:30 | XMS_ITS ---
Author Organization [facility] Address [address] [place] [address] Care Team Providers Care Clerical Adjuster Name Role Phone Imelda Sepulveda Primary Care Provider Unavailab Fabio Amin Unavailable [phone] Medications Medication SIG (Take, Route, Frequency, Duration) Notes Start Date End Date Status Spironolactone 25 MG TAKE 1 TABLET BY MO UT EVERY DAY Oral; Duration: 90 Days Active Corlanor 5 MG TAKE 1 TABLET BY ANUJ TH TWICE DAILY Oral; Duration: 30 Days Active Furosemide 80 MG TAKE 1 TABLET BY ANUJ TH EVERY DAY Oral; Duration: 90 Days Active Carvedilol 12.5 MG TAKE 1 TABLET BY ANUJ TH TWICE DAILY Oral; Duration: 90 Days Active Aspirin Low Dose 81 MG CHEW 1 TABLET BY MOUTH EVERY DAY Oral; Duration: 30 Days Active Entresto 24-26 MG TAKE 1 TABLET BY ANUJ TH TWICE DAILY Oral; Duration: 90 Days Active Jardiance 10 MG TAKE 1 TABLET BY ANUJ TH EVERY DAY Oral; Duration: 30 Days Active Digoxin 250 MCG TAKE 1 TABLET BY ANUJ TH EVERY DAY Oral; Duration: 90 Days Active Rosuvastatin Calcium 40 MG TAKE 1 TABLET BY MOUTH EVERY DAY AT BEDTIME Oral; Duration: 90 Days Active Social History Tobacco Use: Social History Observation Description Date Details (start date - stop date) Never Smoker NA - NA Tobacco Use/Smoking Question Answer Notes Are you a: nonsmoker Additional Findings: Tobacco Non-User Current no n-smoker Alcohol Screen Question Answer Notes Did you have a drink containing alcohol in the p ast year? Yes Points 0 Interpretation Negative Tobacco use other than smoking: Question Answer Notes Are you an other tobacco user? No Encounters Encounter Location Date Provider Diagnosis [facility] [address] [place] [address] 11/16/2024 Fabio Silverio Plan Of Treatment No Information Progress Notes * Sayda SIMMSOB:[birth year] (70 yo M)Acc No.[id number]:11/16/2024 Progress Notes Patient: Trenton ORANTES Provider: Jina Silverio DPM :1955 A ge:69 Y S ex:Male Date:11/16/2024 Address:[address] [place] [address] [facility] Pcp:Imelda Sepulveda Subjective: * Chief Complaints: * * ROS: G eneral/Constitutional: Nausea d enies. V omiting d enies. H ronald Thirst d enies. L oss appetite d enies. C hills d enies. F atigue d enies.?Fever d enies. N ight Sweats d enies. U nexplained weight loss d enies. U nexplained weight gain d enies. H EENTM: Dentures d enies. D izziness d enies. G lasses/contacts a dmits. R etinopathy d enies. B lurred/double vision d enies. T MJ?denies. D ischarge/drainage d enies. I mplants d enies. S ore throat d enies. D ental implants d enies. H ashely of hearing d enies. D ifficulty chewing/swallowing/speaking d enies. N ose bleeds d enies. S ore mouth d enies. ? R espiratory: On Oxygen d enies. P neumonia/pleurisy d enies.?Bronchitis d enies. E mphysema d enies. C oughing d enies. C ough blood?denies. S hortness of breath d enies. W heezing d enies. C ardiovascular: Pacemaker d enies. M ICE SCRAPER d enies. W PW d enies. C HF d enies. H eart attack d enies. S eptal defect d enies. R apid beat d enies. C hest pain d enies. A trial Fib. d enies. M urmur/Palpitations d enies. G astrointestinal: Hemorrhoids d enies. S tomach/Abdominal pain d enies. D ark blood stool d enies. I rritable bowel d enies. C onstipation d enies. D iarrhea d enies. H ematology: Swelling d enies. C lots d enies. V aricose Veins d enies. B ruising d enies. B leeding problem d enies. G enitourinary: Blood urine d enies. F requent/Painfu/urination/bladder control d enies. K idney stones d enies. I nfection (UTI) d enies. N ephropathy d enies. s ex trans dis (STD) d enies. P rostate d enies. M usculoskeletal: Hammertoes d enies. B unions d enies. B ack Pain d enies. M uscle Cramps/ Resting d enies. M uscle cramps / walking d enies.?Generalized aches and pains d enies. W eakness d enies. I nteg.: Camacho d enies. S cars d enies. C orns/calluses?denies. I ngrown nails d enies. P ainful nails d enies. O pen Sores d enies. R ashes d enies. N eurologic: Difficulty sleeping d enies. B rain disorder d enies. N umbness d enies. B alance trouble d enies. C onfusion d enies. F ainting/blackouts d enies. T ingling d enies. T remors d enies. * Medical History: H eart disease, High Blood Pressure, Stroke. * Surgical History: c ardiac pacemeker . * Family History: M other: . F ather: . S iblings: stroke, heart attack, high blood pressure, cancer. * Social History: T obacco Use: T obacco Use/Smoking A re you a: n onsmoker A dditional Findings: Tobacco Non-User C urrent non-smoker Tobacco use other than smoking A re you an other tobacco user? N o D rugs/Alcohol: D rugs H ave you used drugs other than those for medical reasons in the past 12 months? N o Alcohol Screen D id you have a drink containing alcohol in the past year? Y es P oints 0 I nterpretation N egative M iscellaneous: C affeine: no. Children: no. Exercise: no. Marital status: single. * Medications: T aking Jardiance 10 MG Tablet TAKE 1 TABLET BY MOUTH EVERY DAY Oral , Taking Entresto 24-26 MG Tablet TAKE 1 TABLET BY MOUTH TWICE DAILY Oral , Taking Corlanor 5 MG Tablet TAKE 1 TABLET BY MOUTH TWICE DAILY Oral , Taking Spironolactone 25 MG Tablet TAKE 1 TABLET BY MOUTH EVERY DAY Oral , Taking Furosemide 80 MG Tablet TAKE 1 TABLET BY MOUTH EVERY DAY Oral , Taking Aspirin Low Dose 81 MG Tablet Chewable CHEW 1 TABLET BY MOUTH EVERY DAY Oral , Taking Carvedilol 12.5 MG Tablet TAKE 1 TABLET BY MOUTH TWICE DAILY Oral , Taking Rosuvastatin Calcium 40 MG Tablet TAKE 1 TABLET BY MOUTH EVERY DAY AT BEDTIME Oral , Taking Digoxin 250 MCG Tablet TAKE 1 TABLET BY MOUTH EVERY DAY Oral Objective: * Vitals: Assessment: Plan: * Treatment: * Images: * The named appointment provid er may or may not be the originator of this progress note, and it is not deemed complete until electronically signed by the appointment provider. Sign off status: Pending * Provider: Jina Silverio DPM Date: 0 11/16/2024 Generated for Jackie guerrero/Carter/Ronaldo on: 11/12/2024 09:08 PM EST
--- NOTE | 2025-09-12 | ECG_ITS ---
Test Reason : SOB Blood Pressure : */* mmHG Vent. Rate : 102 BPM Atrial Rate : 102 BPM P-R Int : 192 ms QRS Dur : 156 ms QT Int : 384 ms P-R-T Axes : 47 -86 93 degrees QTcB Int : 500 ms Atrial-sensed ventricular-paced rhythm Abnormal ECG When compared with ECG of 11-Sep-2025 00:16, Vent. rate has increased by 22 bpm Referred By: Generic ED Physician Electronically Signed By: HENNY SANDHU
--- NOTE | ~2025-09-12 | XR_ITS ---
CLINICAL HISTORY: chest pain 1 view chest x-ray Comparison: CR - XR CHEST 1V - 09/11/25 00:41 EST Findings: No consolidation or effusion. Prominent pulmonary vasculature. Moderate cardiomegaly. Pacemaker/AICD in the left chest wall. No acute fracture. IMPRESSION: 1. Cardiomegaly with pulmonary vascular congestion. This document has been electronically signed by: Astrid Crouch MD on 09/12/2025 21:59:04
[2025-09-12 20:25] VITALS: BP 118/86; PULSE 101; RESP 22; TEMP 36; O2SAT 100; BMI 25.1
--- OUTSIDE RECORDS SUMMARY | 2025-09-12 21:09 | XMS_ITS | Patient Health Record ---
Author Organization [facility] Address [address] [place] [address] Care Team Providers Care Human Resources District Manager Name Role Phone Imelda Sepulveda Primary Care Provider Unavailab Fabio Amin Unavailable [phone] Reason For Referral No Information Medications Medication [...] No Encounters Encounter Location Date Provider Diagnosis [facility] [address] [place] [address] 11/15/2024 Fabio Silverio Plan Of Treatment No Information Insurance Providers Payer Name Payer Address Payer Phone Subscriber Number Group Number Insured Name Patient Relationship to Insured Coverage Start Date Coverage End Date [facility] [employer] Claims [address] [place] [id number] Trenton Dasilva Self - patient is the insured Medical (General) History Medical History History ICD Code Heart disease High Blood Pressure Stroke Surgical History Surgery Date(Month/Year) cardiac pacemeker
[2025-09-12 21:16] LABS: MANUAL DIFF FLAG NO
[2025-09-12 21:18] LABS: Hematocrit 37.8 % (42.0-52.0); Hemoglobin 12.6 g/dl (14.0-18.0); Imm Gran Abs Auto 0.04 X10*3/uL (0.00-0.03); Imm Gran Pct Auto 0.4 % (0.0-0.4); Lymphocytes Absolute Auto 1.3 X10*3/uL (1.2-4.9); Mean Corpuscular HGB Conc 33.3 g/dl (31.0-36.0); Mean Corpuscular Hemoglobin 30.4 pg (27.0-33.0); Mean Corpuscular Volume 91.1 fL (80.0-98.0); NRBC Abs Auto 0.000 X10*3/uL (0.0-0.012); NRBC Pct Auto 0.0 /100WBC (0.0-0.2); Platelet Count 311 X10*3/uL (160-400); Red Blood Count 4.15 X10*6/uL (4.60-5.80); White Blood Count 9.8 X10*3/uL (4.8-10.8)
[2025-09-12 21:32] LABS: Alanine Aminotransferase 24 U/L (0-40); Albumin Level 4.1 g/dL (3.5-5.0); Alkaline Phosphatase 91 U/L (39-117); Anion Gap 14 (12-20); Aspartate Amino Transferase 39 U/L (5-37); Blood Urea Nitrogen 17 mg/dL (9-16); Calcium 8.7 mg/dL (8.4-10.2); Carbon Dioxide 22 mmol/L (22-29); Chloride 100 mmol/L (96-108); Creatinine Clr Calc Pharmacy 58.2; Estimated Glomerular Filt Rate > 60; Potassium 4.9 mmol/L (3.3-5.1); Sodium 131 mmol/L (135-145); Total Protein 6.9 g/dL (6.5-8.0)
[2025-09-12 21:39] LABS: Troponin-I High Sensitivity 22.8 ng/L (<3.5-35.0)
[2025-09-12 21:54] LABS: Resp Syncy Virus RNA Qual PCR NEGATIVE (Negative); SARS COV2 PCR INHOUSE NEGATIVE (Negative)
[2025-09-13] VITALS (9 sets, daily range): BP systolic 91–123; BP diastolic 58–82; PULSE 71–122; RESP 16–20; TEMP 36.4–37.2; O2SAT 97–98; BMI 25.3
[2025-09-13] MEDS: Furosemide 40 MG/4 ML VIAL IVPUSH (00:05)
--- NOTE | 2025-09-13 00:12 | ED.SOB ---
HPI - SOB/Dyspnea General Chief Complaint: Dyspnea Stated Complaint: Fluid In Lungs Time Seen by Provider: 09/12/25 20:44 Source: patient, EMS, RN notes reviewed, old records reviewed and interpreter for the deaf Mode of arrival: EMS Limitations: language barrier History of Present Illness ED Provider: Dr. Yanely Severino HPI Narrative: 70-year-old male with a history of heart failure with a preserved ejection fraction, hypertension, cardiomyopathy status post ICD placement presenting with shortness of breath, fatigue worsening since he was discharged this morning from this hospital. Was evidently admitted for heart failure exacerbation and low sodium levels. Presents with worsening fatigue. Admits when he was discharged earlier, he had felt better however, got home and try to lay down tonight and felt significantly more short of breath. Denies associated fever or cough. No lower extremity edema or pain. He describes all over body aches, shortness of breath and nausea but no vomiting. No bowel changes or urinary complaints. Reports taking medications as prescribed. Related Data Home Medications ?Medication ?Instructions ?Recorded ?Confirmed ezetimibe 10 mg tablet 10 mg PO DAILY 08/18/20 09/11/25 rosuvastatin 40 mg tablet 40 mg PO BEDTIME 08/18/20 09/11/25 empagliflozin 10 mg tablet 10 mg PO DAILY 02/27/25 09/11/25 (Jardiance) acetaminophen 650 mg 650 mg PO TID PRN pain 04/11/25 09/11/25 tablet,extended release carvedilol 6.25 mg tablet 6.25 mg PO BIDWM 08/06/25 09/11/25 clopidogrel 75 mg tablet 75 mg PO DAILY 09/11/25 09/11/25 Previous Rx's ?Medication ?Instructions ?Recorded apixaban 5 mg tablet (Eliquis) 5 mg PO BID #60 tabs 03/28/25 amiodarone 200 mg tablet 200 mg PO DAILY #30 tabs 08/19/25 Allergies Allergy/AdvReac Type Severity Reaction Status Date / Time No Known Allergies Allergy Verified 09/12/25 20:32 Review of Systems Review of Systems: as per HPI, full review of systems performed and negative but for the above mentioned pertinent positives and negatives. 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 Mother No problems noted. Social History Social History Household Members: None Household Members Other:: Dog Housing: Apartment Do you presently have visiting nurse or other home services: Yes Alcohol intake: current Alcohol intake frequency: a few times a month Alcohol type: beer Patient Tobacco Use Status: Never used Tobacco e-Cigarette/Vaping Use: Never Used Second Hand Smoke Exposure: No Substance Use Type: Marijuana Advance Directives: Yes Advance Directives on File: Yes Advance Directives Date on File: 10/02/24 Do you have a plan to hurt others: No Plan service: No Current occupational status: disabled Physical Exam Exam: Exam: GENERAL: Chronically ill-appearing, mild respiratory distress. SKIN: Normal skin color for ethnicity, warm, dry, no rashes noted. HEENT: Normocephalic, atraumatic, no stridor, EOMI. NECK: Soft, supple, full ROM, midline structures nontender, no step-offs, no deformities, no lymphadenopathy. CHEST: Heart regular tachycardia, symmetric chest rise and fall. PULMONARY: Coarse lung sounds bilaterally, diminished at the bases, ,mild respiratory distress with poor air movement, no wheezes. ABDOMINAL: Soft, protuberant nontender, quiet bowel sounds in all quadrants. : Deferred. MUSCULOSKELETAL: Normal tone, full range of motion, no deformities, nonpitting peripheral edema bilaterally. NEURO: Alert and oriented to person, CN II through XII intact, no focal neurologic deficits. PSYCHIATRIC: Anxious affect, appropriate demeanor. Vital Signs: Vital Signs: Last Vital Signs Temp 97.9 F 09/13/25 00:02 Pulse 82 09/13/25 00:02 Resp 16 09/13/25 00:02 BP 110/70 09/13/25 00:05 Pulse Ox 98 09/13/25 00:02 O2 Del Method Room Air 09/13/25 00:02 BMI result Body Mass Index 25.1 Medications Administered Discontinued Medications Generic Name Dose Route Start Last Admin Trade Name Theodore PRN Reason Stop Dose Admin Furosemide 40 mg 09/12/25 23:28 09/13/25 00:05 Furosemide 40 Mg/4 Ml Vial IVPUSH 09/12/25 23:29 40 mg ONCE ONE Administration Protocol Medical Decision Making Medical Decision Making [facility] Narrative: Patient presents today with chief complaint of shortness of breath. Differential diagnosis includes, but is not limited to, upper respiratory infection, pneumonia, COPD exacerbation, CHF exacerbation, pneumothorax, pleural effusion, pulmonary embolism, ACS. Broad-based work-up will be initiated to evaluate for etiology of patient's symptoms. Clinical picture consistent with CHF exacerbation. He will receive 40 mg of Lasix IV and we will admit for further care and evaluation. Patient understands and agrees with plan for admission. Admitted in guarded condition. Differential Diagnosis Differential Diagnoses: The differential diagnosis associated with the presentation includes ( As above) Admission/Observation Consideration of admission/observation: Escalation of care including admission/observation considered Consult Healthcare Provider Management of the patient was discussed with: Hospitalist Lab Data [facility] Lab Attestation statement: I reviewed the patient's lab results. 09/12/25 21:12 09/12/25 21:12 Labs: Lab Results 09/12/25 Range/Units 21:12 WBC 9.8 (4.8-10.8) X10*3/uL RBC 4.15 L (4.60-5.80) X10*6/uL Hgb 12.6 L (14.0-18.0) g/dl Hct 37.8 L (42.0-52.0) % MCV 91.1 (80.0-98.0) fL MCH 30.4 (27.0-33.0) pg MCHC 33.3 (31.0-36.0) g/dl RDW 14.1 (11.0-16.0) % Plt Count 311 D (160-400) X10*3/uL MPV 10.0 (9.4-12.4) fL Immature Gran % (Auto) 0.4 (0.0-0.4) % Neut % (Auto) 77.4 H (45-73) % Lymph % (Auto) 13.1 L (20-40) % Carter % (Auto) 8.2 (2-11) % Eos % (Auto) 0.4 (0-4) % Baso % (Auto) 0.5 (0-2) % Lymph # (Auto) 1.3 (1.2-4.9) X10*3/uL Carter # (Auto) 0.8 (0.1-1.2) X10*3/uL Eos # (Auto) 0.0 (0.0-0.4) X10*3/uL Baso # (Auto) 0.1 (0.0-0.2) X10*3/uL Abs Immat Gran (auto) 0.04 H (0.00-0.03) X10*3/uL Absolute Neuts (auto) 7.5 (2.0-8.3) x10*3/uL Absolute Nucleated RBC 0.000 (0.0-0.012) X10*3/uL Nucleated RBC % (auto) 0.0 (0.0-0.2) /100WBC Sodium 131 L (135-145) mmol/L Potassium 4.9 (3.3-5.1) mmol/L Chloride 100 (96-108) mmol/L Carbon Dioxide 22 (22-29) mmol/L Anion Gap 14 (12-20) BUN 17 H (9-16) mg/dL Creatinine 1.08 (0.5-1.4) mg/dL Estim Creat Clear Calc 58.2 Estimated GFR > 60 Random Glucose 207 H (60-115) mg/dL Calcium 8.7 (8.4-10.2) mg/dL Total Bilirubin 1.5 H (0.0-1.0) mg/dL AST 39 H (5-37) U/L ALT 24 (0-40) U/L Alkaline Phosphatase 91 (39-117) U/L Troponin I High Sens 22.8 (<3.5-35.0) ng/L NT-Pro-B Natriuret Pep 18790.4 H (<300) pg/mL Total Protein 6.9 (6.5-8.0) g/dL Albumin 4.1 (3.5-5.0) g/dL Influenza Type A (PCR) NEGATIVE (Negative) Influenza Type B (PCR) NEGATIVE (Negative) RSV RNA Qual (PCR) NEGATIVE (Negative) SARS-CoV-2 RNA (RT-PCR) NEGATIVE (Negative) Independent Interpretation I performed an independent interpretation of an: EKG and Plain X-Ray Interpretation: My independent interpretation of the chest x-ray reveals no consolidations, pleural effusion, pneumothorax, obvious bony abnormalities. he has mild pulmonary edema, cardiomegaly, AICD in place. My independent interpretation of the ECG reveals paced tachycardia with rate of 102, left axis deviation, QRS 156, QTC 500, no ST elevations or depressions to suggest ischemic changes, relatively unchanged from previous on 09/11/2025 Radiology Impression Discussion of test interpretation with radiology: I have reviewed the radiologist's reading. Independent Historian Clinical information obtained from an independent historian. History obtained from or confirmed by: EMS and Other ( granddaughter) External Record Review External record reviewed: Inpatient record Chronic Conditions Patient?s care impacted by: Diabetes, Hypertension and Other ( heart failure) Social Determinants Patient?s care significantly limited by Social Determinants of Health including: Other Social Determinant of Health Discharge Plan Discharge Clinical Impression: Acute exacerbation of congestive heart failure Patient Disposition: Admitted As Inpatient Print Language: Persian
--- NOTE | 2025-09-13 00:58 | PM.IMHP ---
History of Present Illness Date of Service: 09/13/25 Attending physician on admission: Beto Shen Chief Complaint: SOB patient is a 70-year-old male with a history of heart failure with an ejection fraction of 10-15%, hypertension, ICD, and atrial flutter, presented to the ED dut to SOB, chest pain, generalized weakness and faitgue. the pt has has multiple recent admissions for CHF and hyponatremia, just discharged yesterday. Patient placed on fluid restrictions, Lasix was placed on hold. Per Cardiology suggested on following up as an outpatient at advanced heart failure Clinic. after discharge earlier yesterday he was feeling better throughout the day but when he went to lay down he started to feel more fatigued with worsening SOB and reported back to the ED. he has body aches, SOB and nausea, no fever, chills, vomiting, abd pain, LE edema or urinary sx. the pt is a very poor historian so the majority of the history is from the ED provider. of note, he was also recently admitted here for CHF exacerbation however became unstable while still in the emergency department requiring transfer to [facility] and emergent cardioversion with cardiac catheterization 1.5 weeks ago. Review of Systems Constitutional: Constitutional: Reports body ache(s), Denies chills, Reports fatigue, Denies fever(s) and Denies headache(s) Eyes: Eyes: Denies change in vision ENT: Denies headache(s), Denies nasal discharge and Denies sore throat Cardiovascular: Cardiovascular: Reports chest pain, Denies rapid heart rate, Denies leg edema, Denies lightheadedness and Reports dyspnea Respiratory: Respiratory: Denies chest congestion, Denies cough, Reports dyspnea and Denies wheezing Gastrointestinal: Gastrointestinal: Denies abdominal pain, Denies diarrhea, Reports nausea and Denies vomiting Genitourinary: Genitourinary: Denies dysuria, Denies urinary frequency and Denies urinary urgency Musculoskeletal: Musculoskeletal: Denies back pain and Reports myalgias Integumentary/Breasts: Skin/Breast: Denies rash Neurologic: Denies confusion and Denies headache(s) Psychiatric: Psychiatric: Denies confusion Endocrine: Endocrine: Reports fatigue Hematologic/Lymphatic: Hematologic/Lymphatic: Denies easy bleeding Allergic/Immunologic: Allergic/Immunologic: Denies wheezing [facility]LY [facility] Medical History ICD (implantable cardioverter-defibrillator) in place Acute CHF Atrial flutter by electrocardiogram Cardiomyopathy Anomalous coronary artery origin Atherosclerotic cardiovascular disease Heart failure with reduced ejection fraction HLD (hyperlipidemia) Acute on chronic combined systolic and diastolic CHF (congestive heart failure) Nonischemic cardiomyopathy CAD (coronary artery disease) Hypertension Pacemaker Family History Father No problems noted. Mother No problems noted. Surgical History Stented coronary artery S/P cardiac cath Hx of cardiac catheterization Social History Household Members: None Household Members Other:: Dog Housing: Apartment Do you presently have visiting nurse or other home services: Yes Alcohol intake: current Alcohol intake frequency: a few times a month Alcohol type: beer Patient Tobacco Use Status: Never used Tobacco e-Cigarette/Vaping Use: Never Used Second Hand Smoke Exposure: No Substance Use Type: Marijuana Advance Directives: Yes Advance Directives on File: Yes Advance Directives Date on File: 10/02/24 Do you have a plan to hurt others: No Plan service: No Current occupational status: disabled Meds Allergies Allergy/AdvReac Type Severity Reaction Status Date / Time No Known Allergies Allergy Verified 09/12/25 20:32 Active Medications: Current Medications Acetaminophen (Acetaminophen 325 Mg Tablet) 975 mg PO Q6H PRN PRN Reason: Pain, Mild 1-3,fever,headache Apixaban (Apixaban 5 Mg Tablet) 5 mg PO BID NATALIIA Calcium Carbonate (Calcium Carbonate 750 Mg Tab.Chew) 750 mg PO Q4H PRN PRN Reason: Heartburn Magnesium Hydroxide (Milk Of Magnesia 30 Ml Oral.Susp) 30 ml PO DAILY PRN PRN Reason: Constipation Melatonin (Melatonin 3 Mg Tablet) 6 mg PO BEDTIME PRN PRN Reason: Insomnia Ondansetron HCl (Ondansetron Hcl 4 Mg/2 Ml Vial) 4 mg IVPUSH Q8H PRN PRN Reason: Nausea and Vomiting Oxycodone HCl (Oxycodone Hcl Immed Release 5 Mg Tablet) 5 mg PO Q6H PRN PRN Reason: Pain, Severe (Pain Scale 7-10) Sodium Chloride (0.9 % Sodium Chloride Flush 3 Ml Syringe) 3 ml IVFLUSH QSHIFT NATALIIA Tramadol HCl (Tramadol Hcl 50 Mg Tablet) 50 mg PO Q6H PRN PRN Reason: Pain, Moderate(Pain Scale 4-6) Home Medications ?Medication ?Instructions ?Recorded ?Confirmed ?Last Taken ?Type ezetimibe 10 mg tablet 10 mg PO DAILY 08/18/20 09/11/25 09/10/25 History rosuvastatin 40 mg tablet 40 mg PO BEDTIME 08/18/20 09/11/25 09/10/25 History empagliflozin 10 mg tablet 10 mg PO DAILY 02/27/25 09/11/25 09/10/25 History (Jardiance) acetaminophen 650 mg 650 mg PO TID PRN pain 04/11/25 09/11/25 08/05/25 History tablet,extended release carvedilol 6.25 mg tablet 6.25 mg PO BIDWM 08/06/25 09/11/25 09/10/25 History clopidogrel 75 mg tablet 75 mg PO DAILY 09/11/25 09/11/25 09/10/25 History Physical Exam Vital Signs and Narrative: Vital Signs: Last Vital Signs Temp 97.9 F 09/13/25 00:02 Pulse 82 09/13/25 00:02 Resp 16 09/13/25 00:02 BP 110/70 09/13/25 00:05 Pulse Ox 98 09/13/25 00:02 O2 Del Method Room Air 09/13/25 00:02 BMI result Body Mass Index 25.1 General: AOx3, no acute distress, poor historian, 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 Motor grossly intact bilaterally Extremities: No pitting edema Psych: Appropriate affect Const: General: No confusion Orientation/consciousness: No confusion Neuro: General: No confusion Results Labs 09/12/25 21:12 09/12/25 21:12 Labs: Laboratory Results - last 24 hr 09/12/25 21:12 MCV 91.1 MCH 30.4 MCHC 33.3 RDW 14.1 Plt Count 311 D MPV 10.0 Immature Gran % (Auto) 0.4 Neut % (Auto) 77.4 H Lymph % (Auto) 13.1 L [place] % (Auto) 8.2 Eos % (Auto) 0.4 Baso % (Auto) 0.5 Lymph # (Auto) 1.3 [place] # (Auto) 0.8 Eos # (Auto) 0.0 Baso # (Auto) 0.1 Abs Immat Gran (auto) 0.04 H Absolute Neuts (auto) 7.5 Absolute Nucleated RBC 0.000 Nucleated RBC % (auto) 0.0 Anion Gap 14 Estim Creat Clear Calc 58.2 Estimated GFR > 60 Random Glucose 207 H Calcium 8.7 Total Bilirubin 1.5 H AST 39 H ALT 24 Alkaline Phosphatase 91 Troponin I High Sens 22.8 NT-Pro-B Natriuret Pep 62185.4 H Total Protein 6.9 Albumin 4.1 Influenza Type A (PCR) NEGATIVE Influenza Type B (PCR) NEGATIVE RSV RNA Qual (PCR) NEGATIVE SARS-CoV-2 RNA (RT-PCR) NEGATIVE Assessment and Plan (1) Acute on chronic congestive heart failure: Status: Acute (2) Acute hyponatremia: Status: Acute Plan patient is a 70-year-old male with a history of heart failure with an ejection fraction of 10-15%, hypertension, ICD, and atrial flutter, presented to the ED dut to SOB, chest pain, generalized weakness and faitgue. multiple recent admissions for CHF exacerbation, most recently discharged yesterday. acute on chronic HFrEF exacerbation, recent EF 10% - IV lasix given in ED, re-evaluate need to repeat dose in AM - jardiance, carvedilol - fluid restriction 1200ml/day - per recent cardiology consult: Discussed with at [facility], who felt he should probably be evaluated at a Transplant center , pt was not interested at that time. plan was to f/u at advanced CHF clinic - monitor CBC and BMP acute hyponatremia, likely hypervolemic hyponatremia - IV lasix as above - fluid restriction - monitor BMP CAD s/p PCI -- chest pain, resolved, could be secondary to recent ablation - EKG nonischemic - troponin at baseline - monitor on telemetry - continue Plavix and rosuvastatin 40 and ezetimibe 10mg HTN - BP soft, hold home meds a flutter - hold rate control, continue eliquis and amiodarone prolonged QTC, still present - avoid QT prolonging medications med rec pending full code VTE prophylaxis: Eliquis patient with acute CHF exacerbation, requiring admission for at least 2 midnight stay for diuresis and monitoring. Quality Stroke Does the patient have a stroke diagnosis?: No VTE Prior VTE?: No VTE Risk Level:: Medical - moderate - high VTE Device Contraindication: Treatment Not Indicated VTE Drug Contraindication: N/A - Med Ordered
[2025-09-13 04:25] LABS: Hematocrit 34.1 % (42.0-52.0); Hemoglobin 11.3 g/dl (14.0-18.0); Mean Corpuscular HGB Conc 33.1 g/dl (31.0-36.0); Mean Corpuscular Hemoglobin 30.1 pg (27.0-33.0); Mean Corpuscular Volume 90.7 fL (80.0-98.0); NRBC Abs Auto 0.000 X10*3/uL (0.0-0.012); NRBC Pct Auto 0.0 /100WBC (0.0-0.2); Platelet Count 240 X10*3/uL (160-400); Red Blood Count 3.76 X10*6/uL (4.60-5.80); White Blood Count 8.4 X10*3/uL (4.8-10.8)
[2025-09-13 04:39] LABS: Anion Gap 13 (12-20); Blood Urea Nitrogen 15 mg/dL (9-16); Calcium 8.5 mg/dL (8.4-10.2); Carbon Dioxide 25 mmol/L (22-29); Chloride 101 mmol/L (96-108); Creatinine Clr Calc Pharmacy 76.7; Estimated Glomerular Filt Rate > 60; Potassium 4.2 mmol/L (3.3-5.1); Sodium 135 mmol/L (135-145)
--- NOTE | 2025-09-13 11:28 | PHA.MEDREC ---
Addendum entered by Kelsey Davila [facility] 09/13/25 12:11: REVIEWED BY PHARMACIST Original Note: Pharmacy Consult ? Medication Reconciliation Pharmacy has completed the medication reconciliation. Went to speak with pt and Dr in room on phone with pt nephew, Anup and they were going over the overall upkeep on pt history. Pt just discharged with us 09/12 and was suppose to stop 3 medications (Furosemide, Entersto and Spironolactone) for his low blood pressure, but pt nephew only able to confirm Furosemide and unsure about the other 2. After pt nephew, daughter and Dr spoke with each other about what to do with pt, Dr decided to confirm med rec as is (keeping on Furosemide, Entresto and Spironolactone) and monitor pt for any changes. confirmed in tiger connect to confirm med rec as is and keep those 3 medications on.
[2025-09-13 12:45] LABS: Anion Gap 9 (12-20); Blood Urea Nitrogen 15 mg/dL (9-16); Calcium 8.8 mg/dL (8.4-10.2); Carbon Dioxide 29 mmol/L (22-29); Chloride 100 mmol/L (96-108); Creatinine Clr Calc Pharmacy 62.2; Estimated Glomerular Filt Rate > 60; Magnesium 2.2 mg/dL (1.6-2.6); Potassium 4.3 mmol/L (3.3-5.1); Sodium 134 mmol/L (135-145)
[2025-09-13 12:53] LABS: Troponin-I High Sensitivity 23.3 ng/L (<3.5-35.0)
--- NOTE | 2025-09-13 14:33 | PM.CNCAR ---
History of Present Illness History of Present Illness Date of Service: 09/13/25 Chief complaint: CHF Narrative: Patient was seen yesterday in consultation and discharged with the plan for outpatient advanced heart failure consultation but he returns back for shortness of breath. In his echocardiogram, he has got markedly diminished LVEF around 10-15% with severely dilated LV cavity size. He has had multiple hospitalizations over the last few months. Home 3-4 hospitalizations within the last month. Very recently, he also had flutter ablation as it was precipitating heart failure symptoms and he had to be emergently cardioverted. He has also undergone PASSENGER BARGE MASTER placement. History of coronary artery disease. In October of this year, he underwent PCI to proximal LAD. Previously, placed RCA stent. He presented with some chest pain type symptoms which could be just from heart failure earlier this week. He was diuresed and discharged home. Then he returns back today with shortness of breath. Review of Systems Review of Systems: Yes all other systems are reviewed and are negative Constitutional: Constitutional: Reports as per HPI and Reports no additional constitutional complaints Eyes: Eyes: Reports as per HPI and Denies no additional eye complaints ENT: Denies system reviewed and no additional complaints, except as documented and Reports as per HPI Cardiovascular: Cardiovascular: Reports as per HPI, Reports no additional cardiovascular complaints, Denies acrocyanosis, Denies cool extremities, Denies chest pain, Denies leg edema, Denies lightheadedness, Denies palpitations and Reports dyspnea Respiratory: Respiratory: Reports as per HPI, Denies no additional respiratory complaints and Reports dyspnea Gastrointestinal: Gastrointestinal: Reports as per HPI and Denies no additional gastrointestinal complaints Genitourinary: Genitourinary: Reports no additional male genitourinary complaints and Reports as per HPI Musculoskeletal: Musculoskeletal: Reports no additional musculoskeletal complaints and Reports as per HPI Integumentary/Breasts: Skin/Breast: Reports system reviewed and no additional complaints, except as docu Neurologic: Reports system reviewed and no additional complaints, except as documented and Reports as per HPI Psychiatric: Psychiatric: Reports no additional psychiatric complaints and Reports as per HPI Endocrine: Endocrine: Reports no additional endocrine complaints, Reports as per HPI and Denies palpitations Hematologic/Lymphatic: Hematologic/Lymphatic: Reports no additional hematologic/lymphatic complaints and Reports as per HPI Allergic/Immunologic: Allergic/Immunologic: Reports no additional allergic/immunologic complaints and Reports as per HPI FOR[facility]LY [facility] Past Medical History Medical History ICD (implantable cardioverter-defibrillator) in place Acute CHF Atrial flutter by electrocardiogram Cardiomyopathy Anomalous coronary artery origin Atherosclerotic cardiovascular disease Heart failure with reduced ejection fraction HLD (hyperlipidemia) Acute on chronic combined systolic and diastolic CHF (congestive heart failure) Nonischemic cardiomyopathy CAD (coronary artery disease) Hypertension Pacemaker Family History Family History Father No problems noted. Mother No problems noted. Surgical History Surgical History Stented coronary artery S/P cardiac cath Hx of cardiac catheterization Social History Social History Household Members: None Household Members Other:: Dog Housing: Apartment Do you presently have visiting nurse or other home services: Yes Alcohol intake: never Patient Tobacco Use Status: Never used Tobacco Smoked in Last 30 Days: No e-Cigarette/Vaping Use: Never Used Second Hand Smoke Exposure: No Use of substances other than those prescribed or required for medical reasons: No Substance Use Type: Marijuana Have you been hit, kicked, punched, or otherwise hurt by someone within the past year? If so, by whom?: No Do you feel safe in your current relationship?: Yes Is there a partner from a previous relationship who is making you feel unsafe now?: No Are you made to feel afraid or neglected: No Advance Directives: Yes Advance Directives on File: Yes Advance Directives Date on File: 10/02/24 Do you have a plan to hurt others: No Plan Recently lost weight without trying: No Nutrition Risks: No Nutritional Risk Poor oral hygiene: Yes (Multiple missing teeth) service: No Current occupational status: disabled Meds Allergies Allergy/AdvReac Type Severity Reaction Status Date / Time No Known Allergies Allergy Verified 09/12/25 20:32 Active Medications: Current Medications Acetaminophen (Acetaminophen 325 Mg Tablet) 975 mg PO Q6H PRN PRN Reason: Pain, Mild 1-3,fever,headache Apixaban (Apixaban 5 Mg Tablet) 5 mg PO BID NATALIIA Last Admin: 09/13/25 10:58 Dose: 5 mg Calcium Carbonate (Calcium Carbonate 750 Mg Tab.Chew) 750 mg PO Q4H PRN PRN Reason: Heartburn Magnesium Hydroxide (Milk Of Magnesia 30 Ml Oral.Susp) 30 ml PO DAILY PRN PRN Reason: Constipation Melatonin (Melatonin 3 Mg Tablet) 6 mg PO BEDTIME PRN PRN Reason: Insomnia Oxycodone HCl (Oxycodone Hcl Immed Release 5 Mg Tablet) 5 mg PO Q6H PRN PRN Reason: Pain, Severe (Pain Scale 7-10) Sodium Chloride (0.9 % Sodium Chloride Flush 3 Ml Syringe) 3 ml IVFLUSH [facility] Last Admin: 09/13/25 10:58 Dose: Not Given Tramadol HCl (Tramadol Hcl 50 Mg Tablet) 50 mg PO Q6H PRN PRN Reason: Pain, Moderate(Pain Scale 4-6) Home Medications ?Medication ?Instructions ?Recorded ?Confirmed ?Last Taken ?Type ezetimibe 10 mg tablet 10 mg PO DAILY 08/18/20 09/13/25 09/10/25 History rosuvastatin 40 mg tablet 40 mg PO BEDTIME 08/18/20 09/13/25 09/10/25 History empagliflozin 10 mg tablet 10 mg PO DAILY 02/27/25 09/13/25 09/10/25 History (Jardiance) acetaminophen 650 mg 650 mg PO TID PRN pain 04/11/25 09/13/25 08/05/25 History tablet,extended release carvedilol 6.25 mg tablet 6.25 mg PO BIDWM 08/06/25 09/13/25 09/10/25 History clopidogrel 75 mg tablet 75 mg PO DAILY 09/11/25 09/13/25 09/10/25 History furosemide 40 mg tablet 80 mg PO BID 09/13/25 09/13/25 Unknown History sacubitril 24 mg-valsartan 26 mg 1 tab PO BID 09/13/25 09/13/25 Unknown History tablet (Entresto) spironolactone 25 mg tablet 25 mg PO DAILY 09/13/25 09/13/25 Unknown History Physical Exam Vital Signs: Vital Signs: Last Vital Signs Temp 97.9 F 09/13/25 10:30 Pulse 71 09/13/25 10:30 Resp 16 09/13/25 10:30 BP 96/68 09/13/25 10:30 Pulse Ox 98 09/13/25 10:30 O2 Del Method Room Air 09/13/25 10:30 BMI result Body Mass Index 25.3 Const: General: comfortable and no acute distress Orientation/consciousness: patient oriented x3 HEENT: Other: Unremarkable Head: Yes normal to inspection Neck: Neck: Yes normal visual inspection Chest: Chest palpation & inspection: normal inspection of the chest Resp: Auscultation: crackles Cardio: Palpation: normal PMI Heart sounds: S1 normal heart sound present, S2 normal heart sound present, no gallops, no murmurs and no rubs GI: Palpation (GI): Soft to palpation Back/Spine/Pelvis: Other: unremarkable Skin: General skin exam: no rashes or lesions noted Neuro: General: patient oriented x3 Extrem: General: Yes normal to inspection Psych: Mental Status: mental status grossly normal Objective Labs and Meds 09/13/25 04:15 09/13/25 12:15 Lab results: Laboratory Results - last 24 hr 09/12/25 09/13/25 09/13/25 21:12 04:15 12:15 WBC 9.8 8.4 RBC 4.15 L 3.76 L Hgb 12.6 L 11.3 L Hct 37.8 L 34.1 L MCV 91.1 90.7 MCH 30.4 30.1 MCHC 33.3 33.1 RDW 14.1 14.0 Plt Count 311 D 240 MPV 10.0 9.7 Immature Gran % (Auto) 0.4 Neut % (Auto) 77.4 H Lymph % (Auto) 13.1 L [place] % (Auto) 8.2 Eos % (Auto) 0.4 Baso % (Auto) 0.5 Lymph # (Auto) 1.3 [place] # (Auto) 0.8 Eos # (Auto) 0.0 Baso # (Auto) 0.1 Abs Immat Gran (auto) 0.04 H Absolute Neuts (auto) 7.5 Absolute Nucleated RBC 0.000 0.000 Nucleated RBC % (auto) 0.0 0.0 Hold Purple Top SEE NOTE Sodium 131 L 135 134 L Potassium 4.9 4.2 4.3 Chloride 100 101 100 Carbon Dioxide 22 25 29 Anion Gap 14 13 9 L BUN 17 H 15 15 Creatinine 1.08 0.82 1.01 Estim Creat Clear Calc 58.2 76.7 62.2 Estimated GFR > 60 > 60 > 60 Random Glucose 207 H 90 157 H Calcium 8.7 8.5 8.8 Magnesium 2.2 Total Bilirubin 1.5 H AST 39 H ALT 24 Alkaline Phosphatase 91 Troponin I High Sens 22.8 23.3 NT-Pro-B Natriuret Pep 53060.4 H 37942.8 H Total Protein 6.9 Albumin 4.1 Influenza Type A (PCR) NEGATIVE Influenza Type B (PCR) NEGATIVE RSV RNA Qual (PCR) NEGATIVE SARS-CoV-2 RNA (RT-PCR) NEGATIVE 09/13/25 12:15 WBC RBC Hgb Hct MCV MCH MCHC RDW Plt Count MPV Immature Gran % (Auto) Neut % (Auto) Lymph % (Auto) [place] % (Auto) Eos % (Auto) Baso % (Auto) Lymph # (Auto) [place] # (Auto) Eos # (Auto) Baso # (Auto) Abs Immat Gran (auto) Absolute Neuts (auto) Absolute Nucleated RBC Nucleated RBC % (auto) Hold Purple Top Sodium Potassium Chloride Carbon Dioxide Anion Gap BUN Creatinine Estim Creat Clear Calc Estimated GFR Random Glucose Calcium Magnesium Total Bilirubin AST ALT Alkaline Phosphatase Troponin I High Sens NT-Pro-B Natriuret Pep 39408.4 H Total Protein Albumin Influenza Type A (PCR) Influenza Type B (PCR) RSV RNA Qual (PCR) SARS-CoV-2 RNA (RT-PCR) ECG Interpretation: EKG with atrial sensed, ventricular paced rhythm at 102/Min. Assessment and Plan (1) Acute on chronic congestive heart failure: Status: Acute Plan On September 03, 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 [id number] ICD upgrade to PASSENGER BARGE MASTER D. Coronary disease status post PCI to LAD from October of this year and prior RCA PCI. Severe LV dilatation at LV SANJANA 7.8 cm with severely reduced LVEF of 10-15%. Recurrent hospitalizations in spite of maintaining sinus rhythm. Already on guideline based medical therapy including beta-blockers, Entresto, spironolactone, Jardiance in diuretics with compliance. Discussed with the patient about transplant vs LVAD options. He would like to review all his options and hence we will discussed with [facility] heart failure team. Procedures Date of Service Date of Service: 09/13/25
[2025-09-13] MEDS: 0.9 % Sodium Chloride Flush 3 ML SYRINGE IVFLUSH (15:52)
[2025-09-13] MEDS: Furosemide 100 MG/10 ML VIAL 40 MG IVPUSH (17:38)
--- NOTE | 2025-09-13 18:05 | P.EN_ITS ---
Event Note Date of Service: 09/13/25 Event Note: Evaluated today in depth with family member by bedside (and HCP on phone - Mgano) Very complicated cardiovascular history, with ejection fraction 10-15%. Recent cardiac catheterization 2 weeks ago [facility] [employer] [facility] upgrade Recently admitted 1 day prior, re-presented with complaints of fatigue, shortness of breath. Patient is furosemide, Entresto and spironolactone were held due to hypotension at time of discharge appropriately. Unfortunately, this likely represents the patient's sequelae of end-stage CHF. Patient likely requires +ve ionotropic therapy and advanced heart failure evaluation services This was discussed in depth with the patient and family members. Patient is furosemide 80 mg b.i.d. p.o. was transitioned to 40 mg b.i.d. IV and restarted Patient's home medications were otherwise resumed Spironolactone and Entresto were placed on hold. Cardiology has evaluated the patient - recommendations greatly appreciated Discussion regarding possible LVAD versus transplantation options were raised The patient would like to review all options as per Cardiology documentation, and graciously coordinated transfer to [facility] heart failure team. The patient has been accepted, however anticipated transfer date is likely over the weekend. I will continue to follow the patient over the weekend until transfer Time Spent With Patient Time: Total time managing care of this patient today 45 minutes.
--- NOTE | 2025-09-13 19:29 | PC.NURSE ---
HR noted to be Vpaced in 130s. BP checked at 123/82. Patient reports overall fatigue. Denies chest pain, palpitations, lightheadedness or dizziness. Provider notified and coreg given along with 40mg IV lasix and acetaminophen for generalized body pain. 25 minutes following coreg, HR down to 70-80s, Vpaced. Patient reports resolution of generalized body pain.
--- NOTE | 2025-09-13 21:45 | ECG_ITS ---
Test Reason : chest pain Blood Pressure : */* mmHG Vent. Rate : 90 BPM Atrial Rate : 90 BPM P-R Int : 208 ms QRS Dur : 154 ms QT Int : 426 ms P-R-T Axes : 62 -85 98 degrees QTcB Int : 521 ms Atrial-sensed ventricular-paced rhythm Abnormal ECG When compared with ECG of 12-Sep-2025 20:41, No significant changes seen Referred By: Beto Shen Electronically Signed By: HENNY SANDHU
[2025-09-13 22:52] LABS: Troponin-I High Sensitivity 27.3 ng/L (<3.5-35.0)
[2025-09-14] VITALS (10 sets, daily range): BP systolic 100–122; BP diastolic 61–80; PULSE 73–109; RESP 16–20; TEMP 36.4–36.9; O2SAT 95–100
--- NOTE | 2025-09-14 | ECG_ITS ---
Test Reason : chest pain Blood Pressure : */* mmHG Vent. Rate : 86 BPM Atrial Rate : 86 BPM P-R Int : 208 ms QRS Dur : 156 ms QT Int : 448 ms P-R-T Axes : 65 270 97 degrees QTcB Int : 536 ms Sinus rhythm with frequent ventricular-paced complexes Left axis deviation Non-specific intra-ventricular conduction block Abnormal ECG When compared with ECG of 13-Sep-2025 21:47, No significant changes seen Referred By: Margie Emanuel Electronically Signed By: HENNY SANDHU
[2025-09-14] MEDS: 0.9 % Sodium Chloride Flush 3 ML SYRINGE IVFLUSH ×3 (00:15→16:37)
[2025-09-14 00:45] LABS: Troponin-I High Sensitivity 28.3 ng/L (<3.5-35.0)
[2025-09-14] MEDS: Furosemide 100 MG/10 ML VIAL 40 MG IVPUSH ×2 (06:11→18:21)
[2025-09-14 07:47] LABS: Hematocrit 35.7 % (42.0-52.0); Hemoglobin 11.8 g/dl (14.0-18.0); Mean Corpuscular HGB Conc 33.1 g/dl (31.0-36.0); Mean Corpuscular Hemoglobin 30.2 pg (27.0-33.0); Mean Corpuscular Volume 91.3 fL (80.0-98.0); NRBC Abs Auto 0.000 X10*3/uL (0.0-0.012); NRBC Pct Auto 0.0 /100WBC (0.0-0.2); Platelet Count 257 X10*3/uL (160-400); Red Blood Count 3.91 X10*6/uL (4.60-5.80); White Blood Count 8.5 X10*3/uL (4.8-10.8)
--- NOTE | 2025-09-14 09:41 | PM.PNCARD ---
Subjective Subjective Date of Service: 09/14/25 Interval history: He states he feels okay. Resting comfortably. Review of Systems Review of Systems Yes all other systems are reviewed and are negative Constitutional: Reports as per HPI and Reports no additional constitutional complaints Eyes: Reports as per HPI and Denies no additional eye complaints Denies system reviewed and no additional complaints, except as documented and Reports as per HPI Cardiovascular: Reports as per HPI, Reports no additional cardiovascular complaints, Denies acrocyanosis, Denies cool extremities, Denies chest pain, Denies leg edema, Denies lightheadedness, Denies palpitations and Denies dyspnea Respiratory: Reports as per HPI, Denies no additional respiratory complaints and Denies dyspnea Gastrointestinal: Reports as per HPI and Denies no additional gastrointestinal complaints Genitourinary: Reports no additional male genitourinary complaints and Reports as per HPI Musculoskeletal: Reports no additional musculoskeletal complaints and Reports as per HPI Skin/Breast: Reports system reviewed and no additional complaints, except as docu Reports system reviewed and no additional complaints, except as documented and Reports as per HPI Psychiatric: Reports no additional psychiatric complaints and Reports as per HPI Endocrine: Reports no additional endocrine complaints, Reports as per HPI and Denies palpitations Hematologic/Lymphatic: Reports no additional hematologic/lymphatic complaints and Reports as per HPI Allergic/Immunologic: Reports no additional allergic/immunologic complaints and Reports as per HPI Physical Exam Vital Signs: Last Vital Signs Temp 97.6 F 09/14/25 07:50 Pulse 86 09/14/25 07:50 Resp 20 09/14/25 07:50 BP 110/80 09/14/25 07:50 Pulse Ox 98 09/14/25 07:50 O2 Del Method Room Air 09/14/25 07:50 BMI result Body Mass Index 25.3 Const General: comfortable and no acute distress Orientation/consciousness: patient oriented x3 HEENT Other: Unremarkable Head: Yes normal to inspection Neck Neck: Yes normal visual inspection Chest Chest palpation & inspection: normal inspection of the chest Resp Other: Minimal crackles Cardio Palpation: normal PMI Heart sounds: S1 normal heart sound present, S2 normal heart sound present, no gallops, no murmurs and no rubs GI Palpation (GI): Soft to palpation Back/Spine/Pelvis Other: unremarkable Skin General skin exam: no rashes or lesions noted Neuro General: patient oriented x3 Extrem General: Yes normal to inspection Psych Mental Status: mental status grossly normal Objective Labs and Meds 09/14/25 06:41 09/13/25 12:15 Lab results: Laboratory Results - last 24 hr 09/13/25 09/13/25 09/13/25 12:15 12:15 22:24 WBC RBC Hgb Hct MCV MCH MCHC RDW Plt Count MPV Absolute Nucleated RBC Nucleated RBC % (auto) Hold Purple Top SEE NOTE Sodium 134 L Potassium 4.3 Chloride 100 Carbon Dioxide 29 Anion Gap 9 L BUN 15 Creatinine 1.01 Estim Creat Clear Calc 62.2 Estimated GFR > 60 Random Glucose 157 H Calcium 8.8 Magnesium 2.2 Troponin I High Sens 23.3 27.3 NT-Pro-B Natriuret Pep 64765.8 H 04254.4 H 09/14/25 09/14/25 00:20 06:41 WBC 8.5 RBC 3.91 L Hgb 11.8 L Hct 35.7 L MCV 91.3 MCH 30.2 MCHC 33.1 RDW 14.4 Plt Count 257 MPV 10.5 Absolute Nucleated RBC 0.000 Nucleated RBC % (auto) 0.0 Hold Purple Top Sodium Potassium Chloride Carbon Dioxide Anion Gap BUN Creatinine Estim Creat Clear Calc Estimated GFR Random Glucose Calcium Magnesium Troponin I High Sens 28.3 NT-Pro-B Natriuret Pep Progress Note: A&P Assessment and plan (1) Acute on chronic congestive heart failure: Status: Acute Plan On September 03, 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 Coronary disease status post PCI to LAD from October of this year and prior RCA PCI. Severe LV dilatation at LV SANJANA 7.8 cm with severely reduced LVEF of 10-15%. Recurrent hospitalizations in spite of maintaining sinus rhythm. About 4-5 hospitalizations last few weeks; 3 hospitalization within 10 days for CHF. Already on guideline based medical therapy including beta-blockers, Entresto, spironolactone, Jardiance in diuretics with compliance. He has been accepted at [facility] for advanced heart failure consultation as an inpatient. Awaiting bed for now. Hopefully will be transferred this weekend. Continue IV diuretics for now. Time Spent With Patient Time: Total time managing care of this patient today ____ minutes. Progress Note: Quality Stroke Does the patient have a stroke diagnosis?: No Procedures Date of Service Date of Service: 09/14/25
--- NOTE | 2025-09-14 13:59 | P.PNIM_ITS ---
Subjective Subjective Date of Service: 09/14/25 Interval History: Extensive discussion with the patient and family members today regarding transferred to [facility] for review by advanced heart failure service. The patient may require placement of LVAD, initiation of +ve ionotropic therapy versus assessment for transplantation. Unfortunately, the patient suffers with end-stage biventricular heart failure, with frequent admissions to the hospital as result of recurrent symptoms. Currently, the patient's main complaints of significant fatigue. Review of Systems Review of Systems: Yes all other systems are reviewed and are negative Physical Exam 2 Exam: Exam: General: A&O x3, oriented to time place person and situation, comfortable, fatigued, sallow skin Cardiac: S1, S2 auscultated with no S3/4, no MRG. Cool to touch, no peripheral or central cyanosis, no mottled skin. Elevated JVP to the angle of the mandible bilaterally Respiratory: Reduced bibasilar breath sounds, with fine crepitations auscultated, without wheezing, rales. Vesicular breath sounds in remainder of lung zones GI/ : No abdominal pain on palpation, no masses or distentions. MSK: Normal ambulation without pain at bony prominences or musculature Neurological: Normal neurological examination on overview, without obvious CN II-XII abnormalities. Vital Signs: Vital Signs: Last Vital Signs Temp 97.5 F 09/14/25 12:00 Pulse 78 09/14/25 12:00 Resp 18 09/14/25 12:00 BP 100/62 09/14/25 12:00 Pulse Ox 100 09/14/25 12:00 O2 Del Method Room Air 09/14/25 12:00 BMI result Body Mass Index 25.3 Objective Data Active Medications Acetaminophen (Acetaminophen 325 Mg Tablet) 975 mg PO Q6H PRN PRN Reason: Pain, Mild 1-3,fever,headache Last Admin: 09/13/25 17:49 Dose: 975 mg Documented By: ELIZABETH Amiodarone HCl (Amiodarone Hcl 200 Mg Tablet) 200 mg PO DAILY [facility] Last Admin: 09/14/25 08:52 Dose: 200 mg Documented By: ALMITA Apixaban (Apixaban 5 Mg Tablet) 5 mg PO BID [facility] Last Admin: 09/14/25 08:51 Dose: 5 mg Documented By: ALMITA Atorvastatin Calcium (Atorvastatin Calcium 80 Mg Tablet) 80 mg PO BEDTIME [facility] Last Admin: 09/13/25 22:19 Dose: 80 mg Documented By: THAO Calcium Carbonate (Calcium Carbonate 750 Mg Tab.Chew) 750 mg PO Q4H PRN PRN Reason: Heartburn Carvedilol (Carvedilol 6.25 Mg Tablet) 6.25 mg PO BIDWM [facility]; Protocol Last Admin: 09/14/25 08:50 Dose: 6.25 mg Documented By: ALMITA Clopidogrel Bisulfate (Clopidogrel Bisulfate 75 Mg Tablet) 75 mg PO DAILY [facility] Last Admin: 09/14/25 08:53 Dose: 75 mg Documented By: ALMITA Ezetimibe (Ezetimibe 10 Mg Tablet) 10 mg PO DAILY [facility] Last Admin: 09/14/25 08:51 Dose: 10 mg Documented By: ALMITA Furosemide (Furosemide 100 Mg/10 Ml Vial) 40 mg IVPUSH Q12H [facility]; Protocol Last Admin: 09/14/25 06:11 Dose: 40 mg Documented By: THAO Magnesium Hydroxide (Milk Of Magnesia 30 Ml Oral.Susp) 30 ml PO DAILY PRN PRN Reason: Constipation Melatonin (Melatonin 3 Mg Tablet) 6 mg PO BEDTIME PRN PRN Reason: Insomnia Oxycodone HCl (Oxycodone Hcl Immed Release 5 Mg Tablet) 5 mg PO Q6H PRN PRN Reason: Pain, Severe (Pain Scale 7-10) Sodium Chloride (0.9 % Sodium Chloride Flush 3 Ml Syringe) 3 ml IVFLUSH QSHIFT [facility] Last Admin: 09/14/25 08:53 Dose: 3 ml Documented By: ALMITA Tramadol HCl (Tramadol Hcl 50 Mg Tablet) 50 mg PO Q6H PRN PRN Reason: Pain, Moderate(Pain Scale 4-6) Labs 09/14/25 06:41 09/13/25 12:15 Labs: Laboratory Results - last 24 hr 09/13/25 09/14/25 09/14/25 22:24 00:20 06:41 MCV 91.3 MCH 30.2 MCHC 33.1 RDW 14.4 Plt Count 257 MPV 10.5 Absolute Nucleated RBC 0.000 Nucleated RBC % (auto) 0.0 Troponin I High Sens 27.3 28.3 Assessment and Plan (1) Hypertension: Status: Acute (2) Acute exacerbation of congestive heart failure: Status: Acute (3) Heart failure with reduced ejection fraction: Status: Acute (4) Nonischemic cardiomyopathy: Status: Acute (5) Acute on chronic congestive heart failure: Status: Acute (6) Chest pain: Status: Acute (7) Abnormal EKG: Status: Acute (8) Biventricular ICD (implantable cardioverter-defibrillator) in place: Status: Acute (9) Atrial flutter: Status: Acute (10) End stage heart failure: Status: Acute Plan 70-year-old male, with a past medical history of 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 With guidance from Cardiology, the patient is to be transferred to [facility] to follow up with her advanced heart failure team and for assessment for advanced therapies. We will have patient ready for transfer-patient and family are aware and eager for transfer. PLAN - furosemide 40 mg b.i.d. IV - carvedilol 6.25 b.i.d. p.o. - Ezetimibe 10 mg OD p.o. - atorvastatin 80 mg OD p.o. - continue Jardiance 10 mg OD p.o. - patient's Entresto and spironolactone were held - Cardiology guidance is greatly appreciated Atrial flutter Recent electrical cardioversion and Ablation As above PLAN - continue amiodarone 200 mg OD p.o. - apixaban 5 mg b.i.d. p.o. - carvedilol 6.25 b.i.d. p.o. [employer] - VTE: Apixaban 5 mg b.i.d. p.o. - CODE STATUS: Full code - DIET: Cardiac diet Quality Stroke Does the patient have a stroke diagnosis?: No VTE Prior VTE?: No VTE Risk Level:: Medical - moderate - high VTE Device Contraindication: Treatment Not Indicated VTE Drug Contraindication: N/A - Med Ordered
--- NOTE | 2025-09-14 15:43 | ECG_ITS ---
Test Reason : chest pain Blood Pressure : */* mmHG Vent. Rate : 89 BPM Atrial Rate : 89 BPM P-R Int : 214 ms QRS Dur : 154 ms QT Int : 430 ms P-R-T Axes : 66 269 95 degrees QTcB Int : 523 ms Atrial-sensed ventricular-paced rhythm with prolonged AV conduction Abnormal ECG When compared with ECG of 14-Sep-2025 15:26, No significant changes seen Referred By: Margie Emanuel Electronically Signed By: HENNY SANDHU
--- NOTE | 2025-09-14 15:46 | MHC.CM.PN ---
PATIENT LIVES ALONE AND HAS [employer] [facility] 22 HRS/WK. HE USES A [facility] FOR DME DEPENDING ON DISTANCE AND HOW HE IS FEELING HCP ON FILE AND VERIFIED. PCP: NIRALI BANG DELIVERED ON 09/13/25 DP: HOME RESUME SERVICES VS ACT TRANSPORT: DAUGHTER IF HOME, AMBULANCE IF HE TRANSFERS
[2025-09-14 15:49] LABS: MANUAL DIFF FLAG NO
[2025-09-14 15:56] LABS: Hematocrit 37.5 % (42.0-52.0); Hemoglobin 12.2 g/dl (14.0-18.0); Imm Gran Abs Auto 0.03 X10*3/uL (0.00-0.03); Imm Gran Pct Auto 0.3 % (0.0-0.4); Lymphocytes Absolute Auto 1.3 X10*3/uL (1.2-4.9); Mean Corpuscular HGB Conc 32.5 g/dl (31.0-36.0); Mean Corpuscular Hemoglobin 30.0 pg (27.0-33.0); Mean Corpuscular Volume 92.1 fL (80.0-98.0); NRBC Abs Auto 0.000 X10*3/uL (0.0-0.012); NRBC Pct Auto 0.0 /100WBC (0.0-0.2); Platelet Count 284 X10*3/uL (160-400); Red Blood Count 4.07 X10*6/uL (4.60-5.80); White Blood Count 9.0 X10*3/uL (4.8-10.8)
[2025-09-14 16:04] LABS: Alanine Aminotransferase 23 U/L (0-40); Albumin Level 4.0 g/dL (3.5-5.0); Alkaline Phosphatase 80 U/L (39-117); Anion Gap 16 (12-20); Aspartate Amino Transferase 28 U/L (5-37); Blood Urea Nitrogen 22 mg/dL (9-16); Calcium 9.2 mg/dL (8.4-10.2); Carbon Dioxide 25 mmol/L (22-29); Chloride 99 mmol/L (96-108); Creatinine Clr Calc Pharmacy 58.2; Estimated Glomerular Filt Rate > 60; Potassium 4.6 mmol/L (3.3-5.1); Sodium 135 mmol/L (135-145); Total Protein 6.9 g/dL (6.5-8.0)
[2025-09-14 16:24] LABS: Troponin-I High Sensitivity 20.2 ng/L (<3.5-35.0)
[2025-09-14] MEDS: Furosemide 40 MG/4 ML VIAL IVPUSH (16:28)
--- NOTE | 2025-09-14 18:19 | PC.NURSE ---
gave RN-RN report to Kaylyn at [facility] at 18:15
--- NOTE | 2025-09-14 19:04 | P.DS_ITS ---
DS: Providers Provider Date of Service: 09/14/25 Date of admission: 09/13/25 00:52 Date of discharge: 09/14/25 Primary care physician: Imelda Sepulveda MD Consults: 09/13/25 11:59 Consult to Cardiology Routine Consulting Provider: [facility] Reason for consultation: readmission; CHF exacerbation, hypotnsion - EF10%; transfer? 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 Today, the patient complained of recurrance of retrosternal chest discomfort that was pleuritic in nature/ reproducible on palpation; given cardiac history, workup was initiated. ECG x2 negative for dynamic changes or new concerning findings for ACS. Vital signs remained stable Lab work was unremarkable, revealing normal HS-Troponin 20.2, creatinine 1.0, Hg b 12.5, normal electrolytes, nt-Pro BNP 42499. The patient did not receive nitrates/ nitro He received furosemide IV 40mg once, followed by 0.5mg morphine Inj with significant improvement in pain and discomfort. BP improved to 110/80 with HR 80's. Transfer initated to [facility] due to tenuous clinical status, and need for advanced therapies for end-stage heart failure with recurrent e xacerbations. PLAN - furosemide 40 mg b.i.d. IV - carvedilol 6.25 b.i.d. p.o. - Ezetimibe 10 mg OD p.o. - atorvastatin 80 mg OD p.o. - continue Jardiance 10 mg OD p.o. - patient's Entresto and spironolactone were held 2/2 hypotension - Cardiology guidance is greatly appreciated Atrial flutter Recent electrical cardioversion and Ablation As above PLAN - continue amiodarone 200 mg OD p.o. - apixaban 5 mg b.i.d. p.o. - carvedilol 6.25 b.i.d. p.o. Status at Discharge Cognitive/behavioral status at discharge: A&O to person place time and situation Functional status at discharge: independent ambulation Overall status at discharge: patient is back to baseline Time Attestation Total time managing care of this patient today: 60 mintues. Discharge Coordination Time (in mins): 60 Quality: Safe Use of Opioids Does Pt have an Active Cancer Diagnosis on the Problem List?: No Quality: Stroke Does the patient have a stroke diagnosis?: No Physical Exam Exam: Exam: General: A&O x3, oriented to time place person and situation, comfortable, fatigued, sallow skin Cardiac: S1, S2 auscultated with no S3/4, no MRG. Cool to touch, no peripheral or central cyanosis, no mottled skin. Elevated JVP to the angle of the mandible bilaterally Respiratory: Reduced bibasilar breath sounds, with fine crepitations auscultated, without wheezing, rales. Vesicular breath sounds in remainder of lung zones GI/ : No abdominal pain on palpation, no masses or distentions. MSK: Normal ambulation without pain at bony prominences or musculature Neurological: Normal neurological examination on overview, without obvious CN II-XII abnormalities. Vital Signs: Vital Signs: Last Vital Signs Temp 98.0 F 09/14/25 15:30 Pulse 83 09/14/25 15:30 Resp 16 09/14/25 18:24 BP 118/61 09/14/25 18:21 Pulse Ox 100 09/14/25 15:30 O2 Del Method Room Air 09/14/25 15:30 BMI result Body Mass Index 25.3 DS: Data Data Completed and Pending Completed studies during hospitalization [Text1]: Procedures Gnosticist of Cardiac Rhythm, Single (08/26/25) Labs on day of discharge: Laboratory Results - last 24 hr 09/13/25 09/14/25 09/14/25 22:24 00:20 06:41 WBC 8.5 RBC 3.91 L Hgb 11.8 L Hct 35.7 L MCV 91.3 MCH 30.2 MCHC 33.1 RDW 14.4 Plt Count 257 MPV 10.5 Immature Gran % (Auto) Neut % (Auto) Lymph % (Auto) [place] % (Auto) Eos % (Auto) Baso % (Auto) Lymph # (Auto) [place] # (Auto) Eos # (Auto) Baso # (Auto) Abs Immat Gran (auto) Absolute Neuts (auto) Absolute Nucleated RBC 0.000 Nucleated RBC % (auto) 0.0 Sodium Potassium Chloride Carbon Dioxide Anion Gap BUN Creatinine Estim Creat Clear Calc Estimated GFR Random Glucose Calcium Total Bilirubin AST ALT Alkaline Phosphatase Troponin I High Sens 27.3 28.3 NT-Pro-B Natriuret Pep Total Protein Albumin 09/14/25 09/14/25 15:42 15:43 WBC 9.0 RBC 4.07 L Hgb 12.2 L Hct 37.5 L MCV 92.1 MCH 30.0 MCHC 32.5 RDW 14.3 Plt Count 284 MPV 10.4 Immature Gran % (Auto) 0.3 Neut % (Auto) 74.3 H Lymph % (Auto) 14.5 L [place] % (Auto) 9.8 Eos % (Auto) 0.4 Baso % (Auto) 0.7 Lymph # (Auto) 1.3 [place] # (Auto) 0.9 Eos # (Auto) 0.0 Baso # (Auto) 0.1 Abs Immat Gran (auto) 0.03 Absolute Neuts (auto) 6.7 Absolute Nucleated RBC 0.000 Nucleated RBC % (auto) 0.0 Sodium 135 Potassium 4.6 Chloride 99 Carbon Dioxide 25 Anion Gap 16 BUN 22 H Creatinine 1.08 Estim Creat Clear Calc 58.2 Estimated GFR > 60 Random Glucose 137 H Calcium 9.2 Total Bilirubin 2.1 H AST 28 ALT 23 Alkaline Phosphatase 80 Troponin I High Sens 20.2 NT-Pro-B Natriuret Pep 80360.4 H Total Protein 6.9 Albumin 4.0 Discharge Plan Discharge Anticipated Discharge Date/Time: 09/14/25 19:12 Patient Disposition: Xfer Acute Care Hospital Discharge Diagnosis: acute decompensated CHFrEF 10% Referrals: Imelda Sepulveda MD [Primary Care Provider, Internal Medicine] - 1 Week Discharge Medications: No Action Jardiance 10 mg tablet 10 mg PO DAILY acetaminophen 650 mg tablet extended release 650 mg PO TID PRN (Reason: pain) carvedilol 6.25 mg tablet 6.25 mg PO BIDWM Rx Instructions: must administer with a meal/food. Take one tablet twice a day clopidogrel 75 mg tablet 75 mg PO DAILY furosemide 40 mg tablet 80 mg PO BID spironolactone 25 mg tablet 25 mg PO DAILY sacubitril-valsartan [Entresto] 24-26 mg tablet 1 tab PO BID rosuvastatin 40 mg tablet 40 mg PO BEDTIME ezetimibe 10 mg tablet 10 mg PO DAILY Eliquis 5 mg tablet 5 mg PO BID Qty: 60 5RF Rx Instructions: New amiodarone 200 mg tablet 200 mg PO DAILY Qty: 30 2RF Discharge Orders: Discharge Order (Routine); Ordered 09/14/25 Ordered By: Margie Emanuel Diet: Advance to usual diet Activity on Discharge: As tolerated Stand Alone Forms: Patient Portal Discharge page Print Language: Arabic Care Plan Goals: as above Health Concerns: as above Plan of Treatment: Transfer to [facility] for management of advanced acute decompensation of CHFrEF 10% requiring advanced care management Assessment: Patient clinically stable for transfer to [facility], requiring evaluation for advanced therapies pertinent to end stage CHF.
--- NOTE | 2025-09-14 20:00 | PC.NURSE ---
Pt transferred to [facility] via EMS at approx 1945. All personal belongings and paperwork sent with pt. PIV intact upon d/c. Pt denies chest pain upon departure.
== END 2025-09-14 19:58 | disposition short-term general hospital (02) | DRG 291 ==
LOC: HO.ED 09-13 00:30 → HO.EDOVER 09-13 00:56 → HO.IMC 09-13 07:21
PROVIDERS: Hospitalist; Admitting Provider Physician Assistant; Emergency Provider Emergency Medicine; PCP Internal Medicine; Visit Provider Hospitalist
DX: I11.0 Hypertensive heart disease with heart failure (principal); I50.23 Acute on chronic systolic (congestive) heart failure; E87.1 Hypo-osmolality and hyponatremia; I48.92 Unspecified atrial flutter; I50.84 End stage heart failure; I25.5 Ischemic cardiomyopathy; I25.10 Atherosclerotic heart disease of native coronary artery without angina pectoris; Z95.5 Presence of coronary angioplasty implant and graft; R94.31 Abnormal electrocardiogram [ECG] [EKG]; Z20.822 Contact with and (suspected) exposure to COVID-19; Z95.810 Presence of automatic (implantable) cardiac defibrillator; Z79.01 Long term (current) use of anticoagulants; Z79.899 Other long term (current) drug therapy
CPT/HCPCS: 36415; 71045; 80048; 80053; 83735; 83880; 84484; 85025; 85027; 87637; 93005; 99222; 99285; J1171; J1938; J2270

== ENCOUNTER → 2025-09-12 20:52 | Outpatient (BNV) | payer OTHER, SELFPAY | PROVIDERS: Emergency Provider Emergency Medicine; PCP Internal Medicine; Visit Provider Student in an Organized Health Care Education/Training Program | DX: I51.7 Cardiomegaly (principal); R09.89 Other specified symptoms and signs involving the circulatory and respiratory systems | CPT/HCPCS: 71045 ==

== ENCOUNTER 2025-09-13 00:52 | Outpatient (BNV) | payer OTHER, SELFPAY | END 2025-09-14 15:26 | PROVIDERS: Admitting Provider Physician Assistant; Emergency Provider Emergency Medicine; PCP Internal Medicine; Visit Provider Internal Medicine | DX: I45.4 Nonspecific intraventricular block (principal); I44.0 Atrioventricular block, first degree; Z95.0 Presence of cardiac pacemaker | CPT/HCPCS: 93010 ==

== ENCOUNTER → 2025-09-13 00:52 | Outpatient (BNV) | payer OTHER, SELFPAY | PROVIDERS: Admitting Provider Physician Assistant; Emergency Provider Emergency Medicine; PCP Internal Medicine; Visit Provider Hospitalist | DX: I50.9 Heart failure, unspecified (principal); E87.1 Hypo-osmolality and hyponatremia | CPT/HCPCS: 99223; 99358 ==

== ENCOUNTER → 2025-09-13 00:52 | Outpatient (BNV) | payer OTHER, SELFPAY | PROVIDERS: Admitting Provider Physician Assistant; Emergency Provider Emergency Medicine; PCP Internal Medicine; Visit Provider Internal Medicine | DX: I50.9 Heart failure, unspecified (principal) | CPT/HCPCS: 99233 ==

== ENCOUNTER → 2025-10-09 14:16 | Outpatient (BNV) | payer OTHER, SELFPAY | PROVIDERS: PCP Internal Medicine; Visit Provider Internal Medicine Cardiovascular Disease | DX: Z45.018 Encounter for adjustment and management of other part of cardiac pacemaker (principal) | CPT/HCPCS: 93297 ==